=== PATIENT | male | born 1975 | race Caucasian/White ===

== ENCOUNTER 2018-01-28 08:48 | Emergency (ER) | payer OTHER ==
[2018-01-28] MEDS ORDERED: CLINDAMYCIN HCL 150 MG CAP ONE (09:35)
[2018-01-28] MEDS ORDERED: IBUPROFEN 200 MG TAB PO ONE (09:36)
[2018-01-28] MEDS ORDERED: IBUPROFEN 400 MG TAB ONE (09:36)
[2018-01-28] MEDS ORDERED: CLINDAMYCIN IV 150 MG/ML (4 mL) VIAL ONE (09:37)
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
== END 2018-01-28 10:16 | disposition home or self-care (01) ==
LOC: ER 08:48
DX: K02.9 Dental caries, unspecified (principal); J44.9 Chronic obstructive pulmonary disease, unspecified; I10 Essential (primary) hypertension; F17.210 Nicotine dependence, cigarettes, uncomplicated
CPT/HCPCS: 96372; 99283; S0077

== ENCOUNTER 2018-08-07 20:39 | Emergency (ER) | payer OTHER ==
--- OUTSIDE RECORDS SUMMARY | 2018-08-07 20:41 | XMS REPORT ---
:1975 [facility] Address [address] [place] [address] Dr. Berry [address] [place] [id number] Care Team Providers Name Role Phone Unavailable Unavailable Unavailable Problems This patient has no known problems. Allergies, Adverse Reactions, Alerts This patient has no known allergies or adverse reactions. Medications This patient has no known medications.
[2018-08-07 21:28] LABS: Hematocrit 44.7 % (39.6-49.0); MCH 34.3 pg (27.0-35.0); MCV 97.7 fL (80-100); RBC Red Blood Cell Count 4.57 M/uL (4.33-5.43)
[2018-08-07 21:29] LABS: Absolute Lymphocytes (CBC) 2.1 K/uL (0.7-4.9); Absolute Neutrophil 3.3 K/uL (1.8-8.0); Basophils % 0.4 % (0-1.3); Eosinophils % 4.2 % (0-4.4); MPV 8.2 fL (7.6-11.3)
[2018-08-07] MEDS ORDERED: KETOROLAC 30 MG/ML INJ ONE (21:48)
[2018-08-07] MEDS ORDERED: NA CHLORIDE 0.9% 1,000 ML ONE (21:49)
[2018-08-07 22:10] LABS: Blood Morphology Comment NOT SEEN (NOT SEEN); Platelet Estimate ADEQ
--- NOTE | 2018-08-07 22:10 | RAD REPORT ---
EXAM DESCRIPTION: US - Scrotum Testicles - 08/07/2018 10:02 pm CLINICAL HISTORY: testicular pain COMPARISON: No comparisons FINDINGS: The right testicle 4.2 x 3.1 x 1.6 cm. No intratesticular masses or evidence of testicular torsion. The left testicle 4.3 x 2.9 x 1.6 cm. No intratesticular masses or evidence of testicular torsion. Both epididymides are normal in size and appearance. No pathologic fluid collections. IMPRESSION: Unremarkable study.
[2018-08-07] MEDS ORDERED: MORPHINE 4 MG/ML SYR ONE (22:33)
[2018-08-07] MEDS ORDERED: ONDANSETRON 4 MG/2 ML VIAL ONE (22:33)
[2018-08-07] MEDS ORDERED: DIPHENHYDRAMINE 50 MG/ML VIAL ONE (22:56)
[2018-08-07 23:12] LABS: ALT/SGPT 98 U/L (12-78); AST/SGOT 103 U/L (15-37); Albumin 3.7 g/dL (3.4-5.0); Alkaline Phosphatase 100 U/L (45-117); BUN Blood Urea Nitrogen 7 mg/dL (7-18); Bicarbonate 25 mmol/L (21-32); Bilirubin Direct 0.2 mg/dL (0-0.2); Bilirubin Total 0.7 mg/dL (0.2-1.0); Glucose Level 102 mg/dL (74-106); Lipase 247 U/L (73-393); Potassium 3.9 mmol/L (3.5-5.1); Protein, Total 7.9 g/dL (6.4-8.2); Sodium Level 138 mmol/L (136-145)
--- NOTE | 2018-08-07 23:37 | EDPHYS ---
Physician Documentation [facility] Name: Sung Brown Jr Age: 43 yrs Sex: Male : 1975 Arrival Date: 08/07/2018 Time: 20:41 Bed 19 Private MD: ED Physician Julio Chow HPI: 08/07 23:54 This 43 yrs old Male presents to ER via Ambulatory with complaints of tw4 Testicular Pain, Abdominal Pain. 23:54 The patient presents with scrotal pain, of the right side. Onset: The symptoms/episode tw4 began/occurred yesterday. Modifying factors: The symptoms are alleviated by nothing, the symptoms are aggravated by nothing. Associated signs and symptoms: Pertinent positives: back pain. Severity of symptoms: At their worst the symptoms were moderate, in the emergency department the symptoms are unchanged. The patient has not experienced similar symptoms in the past. Historical: - Allergies: 20:56 NKDA; aj1 - Home Meds: 20:56 Albuterol Inhl [Active]; gabapentin Oral [Active]; Harvoni 90-400 mg Oral tab 1 tab aj1 once daily [Active]; Hydrocodone-Acetaminophen Oral [Active]; lisinopril 40 mg Oral tab 1 tab once daily [Active]; Nexium 40 mg Oral cpDR 1 cap once daily [Active]; Nexium Oral [Active]; Symbicort inhalation [Active]; Tramadol Oral [Active]; - PMHx: 20:56 COPD; Hepatitis; Hypertension; WPW; aj1 - Immunization history:: Flu vaccine is up to date. - Social history:: Smoking status: Patient uses tobacco products, smokes one pack cigarettes per day. - Ebola Screening: : Patient denies travel to an Ebola-affected area in the 21 days before illness onset. ROS: 23:54 Constitutional: Negative for fever, chills, and weight loss, Eyes: Negative for injury, tw4 pain, redness, and discharge, Cardiovascular: Negative for chest pain, palpitations, and edema, Respiratory: Negative for shortness of breath, cough, wheezing, and pleuritic chest pain, Abdomen/GI: Negative for abdominal pain, nausea, vomiting, diarrhea, and constipation. 23:54 Neuro: Negative for headache, weakness, numbness, tingling, and seizure, Psych: Negative for depression, anxiety, suicide ideation, homicidal ideation, and hallucinations. 23:54 Back: Positive for flank pain. 23:54 : Positive for testicular pain Exam: 23:54 Constitutional: This is a well developed, well nourished patient who is awake, alert, tw4 and in no acute distress. Head/Face: Normocephalic, atraumatic. Chest/axilla: Normal chest wall appearance and motion. Nontender with no deformity. No lesions are appreciated. Cardiovascular: Regular rate and rhythm with a normal S1 and S2. No gallops, murmurs, or rubs. Normal PMI, no JVD. No pulse deficits. Respiratory: Lungs have equal breath sounds bilaterally, clear to auscultation and percussion. No rales, rhonchi or wheezes noted. No increased work of breathing, no retractions or nasal flaring. Abdomen/GI: Soft, non-tender, with normal bowel sounds. No distension or tympany. No guarding or rebound. No evidence of tenderness throughout. Back: No spinal tenderness. No costovertebral tenderness. Full range of motion. Male : Normal genitalia with no discharge or lesions. MS/ Extremity: Pulses equal, no cyanosis. Neurovascular intact. Full, normal range of motion. Neuro: Awake and alert, GCS 15, oriented to person, place, time, and situation. Cranial nerves II-XII grossly intact. Motor strength 5/5 in all extremities. Sensory grossly intact. Cerebellar exam normal. Normal gait. Vital Signs: 20:56 BP 138 / 97; Pulse 80; Resp 18; Temp 98.7; Pulse Ox 96% on R/A; Weight 122.47 kg (R); aj1 Height 5 ft. 10 in. (177.80 cm) (R); Pain 10/10; 21:45 BP 133 / 89; Pulse 82; Resp 18 S; Pulse Ox 96% on R/A; cc3 22:30 BP 135 / 83; Pulse 86; Resp 17 S; Pulse Ox 96% on R/A; cc3 23:50 BP 131 / 79; Pulse 86; Resp 18 S; Pulse Ox 96% on R/A; cc3 20:56 Body Mass Index 38.74 (122.47 kg, 177.80 cm) aj1 MDM: 21:21 Patient medically screened. tw4 23:54 Differential diagnosis: UTI, urinary retention, urethritis, nephrolithiasis. Data tw4 reviewed: vital signs, nurses notes. Data interpreted: Pulse oximetry: Interpretation: normal. Counseling: I had a detailed discussion with the patient and/or guardian regarding: the historical points, exam findings, and any diagnostic results supporting the discharge/admit diagnosis. Medication response: morphine relieved the patient's pain. Symptoms have resolved, Toradol partially relieved the patient's pain. Response to treatment: the patient's symptoms have resolved after treatment, and as a result, I will discharge patient. Special discussion: Based on the patient's Hx, exam, and Dx evaluation, there is no indication for emergent surgery or inpatient Tx. It is understood by the patient/guardian that if the Sx's persist or worsen they need to return immediately for re-evaluation. I discussed with the patient/guardian in detail that at this point there is no indication for admission to the hospital. It is understood, however, that if the symptoms persist or worsen the patient needs to return immediately for re-evaluation. ED course: ultrasound of scrotum negative for acute changes. CT scan renal stone protocol negative as well. 08/07 20:57 Order name: Basic Metabolic Panel; Complete Time: 23:35 tw4 08/07 23:35 Interpretation: Within normal limits. tw4 08/07 20:57 Order name: CBC with Diff; Complete Time: 23:30 tw4 08/07 23:30 Interpretation: Normal except: MN% 15.0; PLT 124. tw4 08/07 20:57 Order name: Creatinine for Radiology; Complete Time: 23:35 tw4 08/07 23:35 Interpretation: Within normal limits: CRE 0.80; GFR > 90. tw4 08/07 20:57 Order name: Hepatic Function; Complete Time: 23:31 tw4 08/07 23:34 Interpretation: Normal except: AST 103; ALT 98; GLOB 4.2; A/G 0.9. tw4 08/07 20:57 Order name: Lipase; Complete Time: 23:35 tw4 08/07 23:35 Interpretation: Within normal limits: LIP 247. tw4 08/07 21:31 Order name: Manual Differential EDMS 08/07 21:28 Order name: Scrotum Testicles US; Complete Time: 23:35 tw4 08/07 21:38 Order name: CT Stone Protocol tw4 08/07 23:57 Order name: Urine Dipstick--Ancillary (enter results) 08/07 20:57 Order name: IV Saline Lock; Complete Time: 21:24 tw4 08/07 20:57 Order name: Labs collected and sent; Complete Time: 21:24 tw4 Administered Medications: 21:40 Drug: TORadol 30 mg Route: IVP; Site: right forearm; cc3 22:00 Follow up: Response: No adverse reaction; Pain is unchanged, physician notified cc3 21:45 Drug: NS 0.9% 1000 ml Route: IV; Rate: 1 bolus; Site: right forearm; cc3 23:00 Follow up: Response: No adverse reaction; IV Status: Completed infusion; IV Intake: cc3 1000ml 22:25 Drug: Zofran 4 mg Route: IVP; Site: right forearm; cc3 22:50 Follow up: Response: Nausea is decreased cc3 22:30 Drug: morphine 4 mg Route: IVP; Site: right forearm; cc3 22:50 Follow up: Response: Pain is decreased cc3 22:50 Drug: Benadryl 25 mg Route: IVP; Site: right forearm; cc3 23:30 Follow up: Response: No adverse reaction cc3 Disposition: 08/07/18 23:36 Discharged to Home. Impression: Low back pain. - Condition is Stable. - Discharge Instructions: Back Pain, Adult, Pain Without a Known Cause. - Prescriptions for Ibuprofen 800 mg Oral Tablet - take 1 tablet by ORAL route every 8 hours As needed take with food; 30 tablet. Cyclobenzaprine 10 mg Oral Tablet - take 1 tablet by ORAL route every 8 hours As needed; 30 tablet. Tramadol 50 mg Oral Tablet - take 1 tablet by ORAL route every 8 hours as needed; 12 tablet. - Medication Reconciliation Form, Thank You Letter, Antibiotic Education, Prescription Opioid Use form. - Follow up: Private Physician; When: Upon discharge from the Emergency Department; Reason: If symptoms return, Recheck today's complaints, Continuance of care. - Problem is new. - Symptoms have improved. Signatures: Dispatcher [employer] EDLindsey Barajas RN RN aj1 Julio Chow MD MD tw4 Ruth Ann Hinojosa cc3 Corrections: (The following items were deleted from the chart) 12/13 00:00 08/07 23:36 08/07/2018 23:36 Discharged to Home. Impression: Low back pain. Condition cc3 is Stable. Forms are Medication Reconciliation Form, Thank You Letter, Antibiotic Education, Prescription Opioid Use. Follow up: Private Physician; When: Upon discharge from the Emergency Department; Reason: If symptoms return, Recheck today's complaints, Continuance of care. Problem is new. Symptoms have improved. tw4
--- NOTE | 2018-08-07 23:37 | ER ---
Nurse's Notes [facility] Name: Sung Brown Jr Age: 43 yrs Sex: Male : 1975 Arrival Date: 08/07/2018 Time: 20:41 Bed 19 Private MD: Diagnosis: Low back pain Presentation: 08/07 20:53 Presenting complaint: Patient states: "I have a lot of pain in my lower back, my right aj1 side, my right hip and my testicles, and I have a big knot in my belly button" Reports that he has had this pain for the past 2 days, after helping someone move some large appliances. He felt a pop at that time and has pain ever since. Denies urinary symptoms. Denies N/V/D. Transition of care: patient was not received from another setting of care. Onset of symptoms was August 05, 2018. Risk Assessment: Do you want to hurt yourself or someone else? Patient reports no desire to harm self or others. Initial Sepsis Screen: Does the patient meet any 2 criteria? No. Patient's initial sepsis screen is negative. Does the patient have a suspected source of infection? No. Patient's initial sepsis screen is negative. Care prior to arrival: None. 20:53 Method Of Arrival: Ambulatory aj1 20:53 Acuity: CINTIA 3 aj1 Triage Assessment: 20:56 General: Appears in no apparent distress. uncomfortable, Behavior is calm, cooperative, aj1 appropriate for age. Pain: Complains of pain in back, abdomen and pelvis Pain currently is 10 out of 10 on a pain scale. Neuro: Level of Consciousness is awake, alert, obeys commands. Cardiovascular: Patient's skin is warm and dry. Respiratory: Airway is patent Respiratory effort is even, unlabored, Respiratory pattern is regular, symmetrical. GI: Patient currently denies diarrhea, nausea, vomiting. : Denies burning with urination, urinary frequency. Historical: - Allergies: 20:56 NKDA; aj1 - Home Meds: 20:56 Albuterol Inhl [Active]; gabapentin Oral [Active]; Harvoni 90-400 mg Oral tab 1 tab aj1 once daily [Active]; Hydrocodone-Acetaminophen Oral [Active]; lisinopril 40 mg Oral tab 1 tab once daily [Active]; Nexium 40 mg Oral cpDR 1 cap once daily [Active]; Nexium Oral [Active]; Symbicort inhalation [Active]; Tramadol Oral [Active]; - PMHx: 20:56 COPD; Hepatitis; Hypertension; WPW; aj1 - Immunization history:: Flu vaccine is up to date. - Social history:: Smoking status: Patient uses tobacco products, smokes one pack cigarettes per day. - Ebola Screening: : Patient denies travel to an Ebola-affected area in the 21 days before illness onset. Screenin:00 Abuse screen: Denies threats or abuse. Denies injuries from another. Nutritional cc3 screening: No deficits noted. Tuberculosis screening: No symptoms or risk factors identified. Fall Risk Ambulatory Aid- None/Bed Rest/Nurse Assist (0 pts). Gait- Normal/Bed Rest/Wheelchair (0 pts) Mental Status- Oriented to own ability (0 pts). Assessment: 21:00 GI: Bowel sounds present X 4 quads. Abd is soft and non tender X 4 quads. cc3 22:20 Reassessment: Patient appears in no apparent distress at this time. Patient and/or cc3 family updated on plan of care and expected duration. Pain level reassessed. Patient is alert, oriented x 3, equal unlabored respirations, skin warm/dry/pink. 22:50 Reassessment: patient developed localized mild redness and itchiness at the IV cannula cc3 site after receipt of Morphine intravenous medication, Dr. Chow informed and new order was made and carried out. 23:15 Reassessment: Patient appears in no apparent distress at this time. Patient and/or cc3 family updated on plan of care and expected duration. Pain level reassessed. Patient is alert, oriented x 3, equal unlabored respirations, skin warm/dry/pink. 08/08 00:00 Reassessment: Patient appears in no apparent distress at this time. Patient and/or cc3 family updated on plan of care and expected duration. Pain level reassessed. Patient is alert, oriented x 3, equal unlabored respirations, skin warm/dry/pink. Dr. Chow discharged the patient home with prescription given. IV cannula removed and patient left ER vitally stable and ambulatory with his . Vital Signs: 08/07 20:56 BP 138 / 97; Pulse 80; Resp 18; Temp 98.7; Pulse Ox 96% on R/A; Weight 122.47 kg (R); aj1 Height 5 ft. 10 in. (177.80 cm) (R); Pain 10/10; 21:45 BP 133 / 89; Pulse 82; Resp 18 S; Pulse Ox 96% on R/A; cc3 22:30 BP 135 / 83; Pulse 86; Resp 17 S; Pulse Ox 96% on R/A; cc3 23:50 BP 131 / 79; Pulse 86; Resp 18 S; Pulse Ox 96% on R/A; cc3 20:56 Body Mass Index 38.74 (122.47 kg, 177.80 cm) aj1 ED Course: 20:41 Patient arrived in ED. ds1 20:55 Triage completed. aj1 20:56 Arm band placed on Patient placed in an exam room. aj1 20:57 Julio Chow MD is Attending Physician. tw4 20:59 Ruth Ann Hinojosa is Primary Nurse. cc3 21:00 Patient has correct armband on for positive identification. Bed in low position. Call cc3 light in reach. Side rails up X 1. Pulse ox on. NIBP on. 21:15 Inserted saline lock: 20 gauge in right forearm, using aseptic technique. Blood cc3 collected. 21:[address] nj 22:02 Scrotum Testicles US In Process Unspecified. EDMS 22:04 Ultrasound completed. Patient tolerated well. Patient moved to CT via wheelchair. cy 22:11 CT Stone Protocol In Process Unspecified. EDMS 12/13 00:00 No provider procedures requiring assistance completed. IV discontinued, intact, cc3 bleeding controlled, No redness/swelling at site. Pressure dressing applied. Administered Medications: 08/07 21:40 Drug: TORadol 30 mg Route: IVP; Site: right forearm; cc3 22:00 Follow up: Response: No adverse reaction; Pain is unchanged, physician notified cc3 21:45 Drug: NS 0.9% 1000 ml Route: IV; Rate: 1 bolus; Site: right forearm; cc3 23:00 Follow up: Response: No adverse reaction; IV Status: Completed infusion; IV Intake: cc3 1000ml 22:25 Drug: Zofran 4 mg Route: IVP; Site: right forearm; cc3 22:50 Follow up: Response: Nausea is decreased cc3 22:30 Drug: morphine 4 mg Route: IVP; Site: right forearm; cc3 22:50 Follow up: Response: Pain is decreased cc3 22:50 Drug: Benadryl 25 mg Route: IVP; Site: right forearm; cc3 23:30 Follow up: Response: No adverse reaction cc3 Intake: 23:00 IV: 1000ml; Total: 1000ml. cc3 Outcome: 23:36 Discharge ordered by . tw4 08/08 00:00 Patient left the ED. cc3 00:00 Discharged to home ambulatory, with family. cc3 00:00 Condition: stable 00:00 Discharge instructions given to patient, family, Instructed on discharge instructions, follow up and referral plans. medication usage, Demonstrated understanding of instructions, follow-up care, medications, Prescriptions given X 3. Signatures: Dispatcher [employer] Lindsey Mejai RN RN aj1 Zaynab Zavala ds1 Onur Hernandez Chheannith cy Wadley, Terrence, MD MD tw4 Ruth Ann Hinojosa cc3
[2018-08-08 02:35] LABS: Urine Blood NEGATIVE (NEG); Urine Glucose NEGATIVE (NEG); Urine Protein 2+ (NEG)
--- NOTE | 2018-08-08 08:05 | RAD REPORT ---
EXAM DESCRIPTION: CT - Stone Protocol - 08/08/2018 2:34 am CLINICAL HISTORY: Flank pain. ABD PAIN COMPARISON: Abdomen Pelvis W Contrast dated 10/09/2016 TECHNIQUE: Axial images were obtained without oral or IV contrast. Lack of contrast limits solid org an and vascular assessment. The [id number] spans the entirety of the system partially obscuring uppermost abdomen and lung bases. Coronal reformatted images were obtained and reviewed. All CT scans are performed using dose optimization technique as appropriate and may include automated exposure control or mA/KV adjustment according to patient size. FINDINGS: The lower lung perez are clear. Liver size is prominent with subtle nodular contour in diffuse fatty infiltration. Poorly defined 10 mm lesion is seen in the inferior right lobe liver, grossly unchanged on non-contrast study. Spleen i s mildly enlarged. The pancreas and adrenal glands are normal. No pathologic lymphadenopathy in the a bdomen or pelvis. Subtle caliceal stones are suspected bilaterally. No hydronephrosis. No bowel obstruction, free air, free fluid or abscess. Normal appendix noted.Small fat containing umb ilical hernia. No significant bony abnormality. Absence or atrophy of the left rectus abdominus muscle noted. IMPRESSION: Very subtle punctate caliceal renal calculi bilaterally suspected. No hydronephrosis. Evidence of hepatosplenomegaly with subtle nodular contour to the liver parenchyma likely indicating early findings of cirrhosis.
== END 2018-08-08 | disposition home or self-care (01) ==
LOC: ER 20:39
DX: M54.5 Low back pain (principal); F17.210 Nicotine dependence, cigarettes, uncomplicated; I10 Essential (primary) hypertension; J44.9 Chronic obstructive pulmonary disease, unspecified; I45.6 Pre-excitation syndrome
CPT/HCPCS: 36415; 74176; 76377; 76870; 80048; 80076; 81003; 83690; 85025; 96361; 96374; 96375; 99284; J2405; J7030

== ENCOUNTER 2018-12-06 11:01 | Emergency (ER) | payer OTHER ==
--- OUTSIDE RECORDS SUMMARY | 2018-12-06 11:03 | XMS REPORT ---
:1975 Author Organization [employer] Care Team Providers Name Role Phone Cookie Pope Provider Role Unavailable Allergies, Adverse Reactions, Alerts Substance Reaction Event Type Lisinopril severe fatigue Drug Allergy Problems Problem Type Condition Code Onset Dates Condition Status Problem IBS (irritable bowel syndrome) K58.9 Active Problem GERD (gastroesophageal reflux K21.9 Active disease) Problem Back pain M54.9 Active Problem Pulmonary emphysema, unspecified J43.9 Active emphysema type Problem Alcoholic fatty liver K70.0 Active Problem Chronic hepatitis C without hepatic B18.2 Active coma Problem COPD (chronic obstructive pulmonary J44.9 Active disease) Problem Knee pain M25.569 Active Problem Nicotine dependence F17.200 Active Problem Hypertension I10 Active Assessment Nicotine dependence F17.200 Active Assessment Chronic pain syndrome G89.4 Active Assessment Pulmonary emphysema, unspecified J43.9 Active emphysema type Assessment Hypertension I10 Active Problem Radiculopathy M54.10 Active Problem Ankle pain M25.579 Active Assessment COPD (chronic obstructive pulmonary J44.9 Active disease) Problem Chronic pain syndrome G89.4 Active Problem Wheezing R06.2 Active Medications Medication Code Code Instructions Start End Status Dosage System Date Date Nicotine NDC 0 Active not defined Proctofoam HC ND 06074994894 1-1 % Rectal Active 1 application Four times a as needed day Dibucaine ND 86176579206 1 % Active 1 UYEN APPLIED TOPICALLY 3 TIMES A DAY Results No Known Results Summary Purpose eClinicalWorks Submission
--- OUTSIDE RECORDS SUMMARY | 2018-12-06 11:03 | XMS REPORT ---
:1975 Author Organization [facility] Address [address] [place] [address] Dr. Berry [address] [place] [id number] Care Team Providers Name Role Phone Unavailable Unavailable Unavailable Problems This patient has no known problems. Allergies, Adverse Reactions, Alerts This patient has no known allergies or adverse reactions. Medications This patient has no known medications.
[2018-12-06] MEDS ORDERED: HYDROCODONE/APAP 10/325 TAB ONE (11:48)
--- NOTE | 2018-12-06 12:24 | EDPHYS ---
Physician Documentation [facility] Name: Sung Brown Jr Age: 43 yrs Sex: Male : 1975 Arrival Date: 12/06/2018 Time: 11:01 Bed Treatment Private MD: ED Physician Dom Durant HPI: 12/06 12:15 This 43 yrs old Male presents to ER via Ambulatory with complaints of Right pm1 Hand Injury. 12:15 The patient or guardian reports pain, swelling. The complaints affect the medial aspect pm1 of right hand. Context: The problem was sustained at home, resulted from Punched his granite counter top yesterday. Onset: The symptoms/episode began/occurred yesterday. Modifying factors: The symptoms are alleviated by nothing, the symptoms are aggravated by movement. Associated signs and symptoms: Pertinent negatives: cyanosis distally, decreased sensation distally, numbness distally, tingling distally. Severity of symptoms: in the emergency department the symptoms are actually worse. The patient has not experienced similar symptoms in the past. The patient has not recently seen a physician. Historical: - Allergies: 11:12 NKDA; iw - Home Meds: 11:12 losartan 25 mg oral tab 1 tab 2 times per day [Active]; carvedilol oral oral daily iw [Active]; - PMHx: 11:12 COPD; Hepatitis; Hypertension; WPW; ADD/ADHD; iw - PSHx: 11:12 leg; arm; iw - Immunization history:: Adult Immunizations up to date. - Social history:: Smoking status: Patient uses tobacco products, smokes one pack cigarettes per day. - Ebola Screening: : Patient negative for fever greater than or equal to 101.5 degrees Fahrenheit, and additional compatible Ebola Virus Disease symptoms Patient denies exposure to infectious person Patient denies travel to an Ebola-affected area in the 21 days before illness onset No symptoms or risks identified at this time. ROS: 12:15 Constitutional: Negative for fever, chills, and weight loss, Eyes: Negative for injury, pm1 pain, redness, and discharge, ENT: Negative for injury, pain, and discharge, Neck: Negative for injury, pain, and swelling, Cardiovascular: Negative for chest pain, palpitations, and edema, Respiratory: Negative for shortness of breath, cough, wheezing, and pleuritic chest pain, Abdomen/GI: Negative for abdominal pain, nausea, vomiting, diarrhea, and constipation, Back: Negative for injury and pain. 12:15 Skin: Negative for injury, rash, and discoloration, Neuro: Negative for headache, weakness, numbness, tingling, and seizure. 12:15 MS/extremity: Positive for pain, of the medial aspect of right hand over fifth metacarpal, Negative for decreased range of motion. Exam: 12:15 Constitutional: This is a well developed, well nourished patient who is awake, alert, pm1 and in no acute distress. Head/Face: Normocephalic, atraumatic. Eyes: Pupils equal round and reactive to light, extra-ocular motions intact. Lids and lashes normal. Conjunctiva and sclera are non-icteric and not injected. Cornea within normal limits. Periorbital areas with no swelling, redness, or edema. ENT: Nares patent. No nasal discharge, no septal abnormalities noted. Tympanic membranes are normal and external auditory canals are clear. Oropharynx with no redness, swelling, or masses, exudates, or evidence of obstruction, uvula midline. Mucous membranes moist. Neck: Trachea midline, no thyromegaly or masses palpated, and no cervical lymphadenopathy. Supple, full range of motion without nuchal rigidity, or vertebral point tenderness. No Meningismus. Chest/axilla: Normal chest wall appearance and motion. Nontender with no deformity. No lesions are appreciated. Cardiovascular: Regular rate and rhythm with a normal S1 and S2. No gallops, murmurs, or rubs. Normal PMI, no JVD. No pulse deficits. Respiratory: Lungs have equal breath sounds bilaterally, clear to auscultation and percussion. No rales, rhonchi or wheezes noted. No increased work of breathing, no retractions or nasal flaring. Abdomen/GI: Soft, non-tender, with normal bowel sounds. No distension or tympany. No guarding or rebound. No evidence of tenderness throughout. Back: No spinal tenderness. No costovertebral tenderness. Full range of motion. Skin: Warm, dry with normal turgor. Normal color with no rashes, no lesions, and no evidence of cellulitis. 12:15 Musculoskeletal/extremity: Extremities: grossly normal except: noted in the medial aspect of right hand over distal aspect of fifth metacarpal: deformity, swelling, intact with brisk capillary refill to right fifth finger. the right thumb, right index finger, right middle finger, right ring finger and right little finger Sensation intact. Vital Signs: 11:10 BP 146 / 87; Pulse 81; Resp 16; Pulse Ox 98% on R/A; Weight 118.84 kg; Height 5 ft. 10 iw in. (177.80 cm); Pain 9/10; 11:10 Body Mass Index 37.59 (118.84 kg, 177.80 cm) iw Procedures: 13:15 Splinting: Splint applied to right hand using Orthoglass splint, applied by tech. pm1 Examined by me, post splint application: neurovascular intact, 2+ distal pulses palpable, brisk capillary refill noted, Patient tolerated well. MDM: 11:12 Patient medically screened. pm1 12:22 Data reviewed: vital signs. Data interpreted: Pulse oximetry: on room air is 98 %. pm1 Interpretation: normal. Counseling: I had a detailed discussion with the patient and/or guardian regarding: the historical points, exam findings, and any diagnostic results supporting the discharge/admit diagnosis, radiology results, the need for outpatient follow up, to return to the emergency department if symptoms worsen or persist or if there are any questions or concerns that arise at home. 04 11:12 Order name: Hand Right 3 View XRAY; Complete Time: 12:31 pm1 12/06 12:22 Order name: Ulnar Gutter splint; Complete Time: 12:52 pm1 12/06 12:24 Order name: Sling; Complete Time: 12:52 pm1 Administered Medications: 11:42 Drug: Lockney 10 mg-325 mg 1 tabs Route: PO; em 13:00 Follow up: Response: No adverse reaction; Pain is decreased em Disposition: 12/06/18 12:24 Discharged to Home. Impression: Unspecified fracture of fifth metacarpal bone, right hand. - Condition is Stable. - Discharge Instructions: Boxer's Fracture, Cast or Splint Care, Adult, How to Use a Sling. - Prescriptions for Tylenol- Codeine #3 300-30 mg Oral Tablet - take 2 tablets by ORAL route every 6 hours As needed; 20 tablet. - Medication Reconciliation Form, Thank You Letter, Antibiotic Education, Prescription Opioid Use form. - Follow up: Emergency Department; When: As needed; Reason: Worsening of condition. Follow up: Private Physician; When: 2 - 3 days; Reason: Recheck today's complaints, Continuance of care, Re-evaluation by your physician. - Problem is new. - Symptoms have improved. Addendum: 12/09/2018 08:24 Co-signature as Attending Physician, Dom Durant MD I agree with the assessment and k dr plan of care. Signatures: Dispatcher [employer] EDLA Dom Durant MD MD [facility] Pk Dolan, DENIAL RESOLUTION SPECIALIST DENIAL RESOLUTION SPECIALIST em Lesli Sears, VIMAL RN iw Art Gates NP INTERN PRODUCT MARKETING MANAGER pm1 Jason, Libby [facility] Corrections: (The following items were deleted from the chart) 12/06 13:13 12:24 12/06/2018 12:24 Discharged to Home. Impression: Unspecified fracture of fifth mh5 metacarpal bone, right hand. Condition is Stable. Forms are Medication Reconciliation Form, Thank You Letter, Antibiotic Education, Prescription Opioid Use. Follow up: Emergency Department; When: As needed; Reason: Worsening of condition. Follow up: Private Physician; When: 2 - 3 days; Reason: Recheck today's complaints, Continuance of care, Re-evaluation by your physician. Problem is new. Symptoms have improved. pm1
--- NOTE | 2018-12-06 12:24 | ER ---
Nurse's Notes [facility] Name: Sung Brown Jr Age: 43 yrs Sex: Male : 1975 Arrival Date: 12/06/2018 Time: 11:01 Bed Treatment Private MD: Diagnosis: Unspecified fracture of fifth metacarpal bone, right hand Presentation: 12/06 11:09 Presenting complaint: Patient states: punched a granite table last night, swelling and iw bruising to right hand. Transition of care: patient was not received from another setting of care. Onset of symptoms was December 05, 2018. Risk Assessment: Do you want to hurt yourself or someone else? Patient reports no desire to harm self or others. Initial Sepsis Screen: Does the patient meet any 2 criteria? No. Patient's initial sepsis screen is negative. Does the patient have a suspected source of infection? No. Patient's initial sepsis screen is negative. Care prior to arrival: None. 11:09 Method Of Arrival: Ambulatory iw 11:09 Acuity: CINTIA 4 iw Historical: - Allergies: 11:12 NKDA; iw - Home Meds: 11:12 losartan 25 mg oral tab 1 tab 2 times per day [Active]; carvedilol oral oral daily iw [Active]; - PMHx: 11:12 COPD; Hepatitis; Hypertension; WPW; ADD/ADHD; iw - PSHx: 11:12 leg; arm; iw - Immunization history:: Adult Immunizations up to date. - Social history:: Smoking status: Patient uses tobacco products, smokes one pack cigarettes per day. - Ebola Screening: : Patient negative for fever greater than or equal to 101.5 degrees Fahrenheit, and additional compatible Ebola Virus Disease symptoms Patient denies exposure to infectious person Patient denies travel to an Ebola-affected area in the 21 days before illness onset No symptoms or risks identified at this time. Screenin:30 Abuse screen: Denies threats or abuse. Nutritional screening: No deficits noted. em Tuberculosis screening: No symptoms or risk factors identified. Fall Risk None identified. Assessment: 11:30 General: Appears in no apparent distress. comfortable, Behavior is calm, cooperative. em Pain: Complains of pain in right hand Pain currently is 9 out of 10 on a pain scale. Neuro: Level of Consciousness is awake, alert, obeys commands, Oriented to person, place, time, situation. Cardiovascular: Capillary refill < 3 seconds Patient's skin is warm and dry. Respiratory: Airway is patent Respiratory effort is even, unlabored, Respiratory pattern is regular, symmetrical. Derm: Skin is intact, is healthy with good turgor, Skin is pink, warm \T\ dry. Musculoskeletal: Circulation, motion, and sensation intact. Capillary refill < 3 seconds, Range of motion: limited in right little finger and right ring finger and right middle finger and right index finger and right thumb Swelling present in right hand. 11:50 Reassessment: Patient appears in no apparent distress at this time. Patient and/or iw family updated on plan of care and expected duration. Pain level reassessed. Patient is alert, oriented x 3, equal unlabored respirations, skin warm/dry/pink. I agree with above assessment by Pk Dolan LVN. Vital Signs: 11:10 BP 146 / 87; Pulse 81; Resp 16; Pulse Ox 98% on R/A; Weight 118.84 kg; Height 5 ft. 10 iw in. (177.80 cm); Pain 9/10; 11:10 Body Mass Index 37.59 (118.84 kg, 177.80 cm) iw ED Course: 11:01 Patient arrived in ED. rg4 11:06 Art Gates NP is PHCP. pm1 11:06 Dom Durant MD is Attending Physician. pm1 11:10 Triage completed. iw 11:10 Arm band placed on. iw 11:17 Pk Dolan LVN is Primary Nurse. em 11:30 Patient has correct armband on for positive identification. Bed in low position. Call em light in reach. Adult w/ patient. 12:04 X-ray completed. Portable x-ray completed in exam room. jr1 12:06 Hand Right 3 View XRAY In Process Unspecified. EDMS 12:52 Orthoglass splint: Ulnar gutter/Boxer splint applied on right forearm. Sling applied to mh5 right arm. Administered Medications: 11:42 Drug: Cisne 10 mg-325 mg 1 tabs Route: PO; em 13:00 Follow up: Response: No adverse reaction; Pain is decreased em Outcome: 12:24 Discharge ordered by . pm1 13:13 Patient left the ED. mh5 Signatures: Dispatcher [employer] EDKalpana Recinos jr1 Pk Dolan, GI TECHNICIAN GI TECHNICIAN Lesli Tran, RN RN Art Don, CARBIDE TOOL MAKER CARBIDE TOOL MAKER pm1 Nelly Hogan4 Libby Gomez [facility]
--- NOTE | 2018-12-06 12:29 | RAD REPORT ---
EXAM DESCRIPTION: RAD - Hand Right 3 View - 12/06/2018 12:05 pm CLINICAL HISTORY: Hand pain, blunt force trauma COMPARISON: None. FINDINGS: Distal fifth metacarpal fracture is present. There is ventral angulation of approximately 20 degrees. No other acute fracture changes seen. Hardware is in place base of the second metacarpal from prior r epair. No carpal bone injury confirmed. Scaphoid assessment is limited. There is no dislocation or pe riosteal reaction noted. No foreign body or other soft tissue abnormality. IMPRESSION: Distal right fifth metacarpal fracture with ventral angulation deformity.
== END 2018-12-06 13:13 | disposition home or self-care (01) ==
LOC: ER 11:01
PROC: 2W3CX1Z Immobilization of Right Lower Arm using Splint (ICD-10-PCS; principal; 2018-12-06)
DX: S62.306A Unspecified fracture of fifth metacarpal bone, right hand, initial encounter for closed fracture (principal); W22.8XXA Striking against or struck by other objects, initial encounter; Y93.89 Activity, other specified; Y92.000 Kitchen of unspecified non-institutional (private) residence as the place of occurrence of the external cause; I10 Essential (primary) hypertension; I45.6 Pre-excitation syndrome; J44.9 Chronic obstructive pulmonary disease, unspecified
CPT/HCPCS: 99283

== ENCOUNTER 2018-12-10 08:30 | Day surgery (SDC) | payer OTHER ==
[2018-12-10 08:19] LABS: Absolute Lymphocytes (CBC) 2.1 K/uL (0.7-4.9); Absolute Neutrophil 3.4 K/uL (1.8-8.0); Basophils % 0.8 % (0-1.3); Hematocrit 44.7 % (39.6-49.0); Lymphocytes % 30.8 % (15.3-44.8); MPV 8.3 fL (7.6-11.3); Monocytes % 14.8 % (3.3-12.3); RBC Red Blood Cell Count 4.54 M/uL (4.33-5.43)
--- OUTSIDE RECORDS SUMMARY | 2018-12-10 08:34 | XMS REPORT ---
:1975 Author [facility] Address [address] [place] [address] Dr. Berry [address] [place] [id number] Care Team Providers Name Role Phone Unavailable Unavailable Unavailable Problems This patient has no known problems. Allergies, Adverse Reactions, Alerts This patient has no known allergies or adverse reactions. Medications This patient has no known medications.
--- OUTSIDE RECORDS SUMMARY | 2018-12-10 08:34 | XMS REPORT ---
[...] 0 Active not defined Proctofoam HC ND [id number] 1-1 % Rectal Active 1 application Four times a as needed day Dibucaine ND [id number] 1 % Active 1 UYEN APPLIED TOPICALLY 3 TIMES A DAY Results No Known Results Summary Purpose eClinicalWorks Submission
--- NOTE | 2018-12-10 08:40 | EKG ---
Test Date: 2018-12-10 Test Time: 08:14:14 Machine Tool Builder: VIKA MEASUREMENT RESULTS: Intervals: Rate: 77 MT: 134 QRSD: 88 QT: 396 QTc: 448 Hominy: P: 32 MT: 134 QRS: 30 T: 18 INTERPRETIVE STATEMENTS: Normal sinus rhythm Normal ECG Compared to ECG 10/09/2016 10:25:13 No significant changes Electronically Signed On 12-10-18 08:39:11 CDT by iGno De Jesus
[2018-12-10] MEDS ORDERED: LEVALBUTEROL 1.25 MG/3 ML NEB IH ONE (09:00)
[2018-12-10] MEDS ORDERED: Ringers Lactate 1,000 ML IV ONE (09:01)
[2018-12-10] MEDS ORDERED: CEFAZOLIN/SWI 1gm 1 GM/10 ML SYR ONE (09:01)
[2018-12-10 09:12] LABS: BUN Blood Urea Nitrogen 11 mg/dL (7-18); Bicarbonate 26 mmol/L (21-32); Glucose Level 119 mg/dL (74-106); Potassium 4.6 mmol/L (3.5-5.1); Sodium Level 143 mmol/L (136-145)
[2018-12-10] MEDS ORDERED: MIDAZOLAM HCL 2 MG/2 ML INJ ONE (09:19)
[2018-12-10] MEDS ORDERED: PROPOFOL 200 MG/20 ML VIAL IV ONE ×2 (09:19→09:53)
[2018-12-10] MEDS ORDERED: FENTANYL CITR 100 MCG/2 ML ONE ×2 (09:21→09:54)
[2018-12-10] MEDS ORDERED: LIDOCAINE 2% MPF 5 ML VIAL ONE (09:22)
[2018-12-10] MEDS ORDERED: EPHEDRINE SULF 50 MG/10 ML SYR ONE (09:55)
[2018-12-10] MEDS: HYDROMORPHONE HCL 2 MG/ML inj ONE ×3 (10:26→10:35)
--- NOTE | 2018-12-10 10:36 | RAD REPORT ---
EXAM DESCRIPTION: Garrett Dove (2 Views)12/10/2018 8:28 am CLINICAL HISTORY: Preop/hypertension COMPARISON: October 2017 FINDINGS: The lungs appear clear of acute infiltrate. The heart is normal size IMPRESSION: No acute abnormalities displayed
[2018-12-10] MEDS ORDERED: PROMETHAZINE 25 MG/ML VIAL ONE (10:37)
[2018-12-10] MEDS: HYDROMORPHONE HCL 1 MG/ML INJ ONE ×2 (10:42→10:57)
[2018-12-10] MEDS ORDERED: CODEINE 30MG/APAP 300MG TAB ONE (12:03)
--- NOTE | 2018-12-10 12:15 | RAD REPORT ---
EXAM DESCRIPTION: RAD - Hand Right 3 View - 12/10/2018 11:53 am CLINICAL HISTORY: Fifth metacarpal fracture. COMPARISON: None. FINDINGS: Twenty-four fluoroscopic spot images obtained. Surgery performed by Dr. Capone. Fluoros copy time .2 minutes. Two wires affix a fracture of the fifth metacarpal.
--- NOTE | 2018-12-11 08:36 | OP ---
Surgeon: Sung Capone MD Preoperative Diagnosis: Right fifth metacarpal boxer's fracture. Postoperative Diagnosis: Right fifth metacarpal boxer's fracture. Procedures Performed: Closed reduction, percutaneous pinning, and splint. Anesthesia: General. Procedure In Detail: After satisfactory induction of general anesthesia, the C-arm was brought in [facility] and the hand underwent close reduction, it was adequate. The patient's hand was then prepped wit h Betadine scrub, Betadine paint, dry sterile drapes applied in usual manner. The arm was elevated, exsanguinated with an Esmarch. Tourniquet was inflated to 250 mmHg. Hand placed on the [place] tabl e. The 0.045 K-wires were passed from distal to proximal with the MCP flexed at 90 degrees. Reducti on was adequate. Pins were bent and cut. The dressing consisted of Xeroform, Kerlix, and a fibergla ss splint holding the wrist in 10 degrees of dorsiflexion, MCP 90, PIP and DIP. The patient tolerate d the procedure well and returned to Recovery. JADE/KALPESH Voice ID: [id number] Report ID: [id number]
== END 2018-12-10 12:20 | disposition home or self-care (01) ==
LOC: OR 08:30
PROVIDERS: ATTEND Specialist
PROC: 0PHP34Z Insertion of Internal Fixation Device into Right Metacarpal, Percutaneous Approach (ICD-10-PCS; principal; 2018-12-10 09:00)
DX: S62.306A Unspecified fracture of fifth metacarpal bone, right hand, initial encounter for closed fracture (principal); X58.XXXA Exposure to other specified factors, initial encounter; I10 Essential (primary) hypertension; J44.9 Chronic obstructive pulmonary disease, unspecified; Z79.899 Other long term (current) drug therapy
CPT/HCPCS: 26608; 93005; 85025; 80048; 36415; 71046; 73130; 94640; J2704 ×2; J2550; J2250; J1170 ×2; J3010 ×2; J0690

== ENCOUNTER 2018-12-15 22:45 | Emergency (ER) | payer OTHER ==
--- OUTSIDE RECORDS SUMMARY | 2018-12-15 22:50 | XMS REPORT ---
[...] 0 Active not defined Proctofoam HC ND 70558515123 1-1 % Rectal Active 1 application Four times a as needed day Dibucaine ND [id number] 1 % Active 1 UYEN APPLIED TOPICALLY 3 TIMES A DAY Results No Known Results Summary Purpose eClinicalWorks Submission
--- OUTSIDE RECORDS SUMMARY | 2018-12-15 22:50 | XMS REPORT ---
:1975 [facility] Address [address] [place] [address] Dr. Berry [address] [place] [id number] Care Team Providers Name Role Phone Unavailable Unavailable Unavailable Problems This patient has no known problems. Allergies, Adverse Reactions, Alerts This patient has no known allergies or adverse reactions. Medications This patient has no known medications.
[2018-12-16] MEDS ORDERED: CEPHALEXIN 250 MG CAP ONE (00:29)
[2018-12-16] MEDS ORDERED: HYDROCODONE/APAP 10/325 TAB ONE (00:29)
--- NOTE | 2018-12-16 01:30 | ER ---
Nurse's Notes [facility] Name: Sung Brown Jr Age: 43 yrs Sex: Male : 1975 Arrival Date: 12/15/2018 Time: 22:48 Bed 30 Private MD: Diagnosis: Other acute postprocedural pain Presentation: 12/15 23:04 Presenting complaint: Patient states: he had surgery to right hand a week ago for a bb boxer's fracture by Dr Vallejo but then 2 days ago he fell landing on his right hand and thinks the pins were pushed in more and now it is more swollen, red and has drainage. The pain is so bad now he is unable to sleep. Transition of care: patient was not received from another setting of care. Onset of symptoms was December 13, 2018. Risk Assessment: Do you want to hurt yourself or someone else? Patient reports no desire to harm self or others. Initial Sepsis Screen: Does the patient meet any 2 criteria? No. Patient's initial sepsis screen is negative. Does the patient have a suspected source of infection? No. Patient's initial sepsis screen is negative. Care prior to arrival: None. 23:04 Method Of Arrival: Ambulatory bb 23:04 Acuity: CINTIA 3 bb Historical: - Allergies: 23:08 NKDA; bb - Home Meds: 23:08 Albuterol Inhl [Active]; carvedilol Oral daily [Active]; gabapentin Oral [Active]; bb Hydrocodone-Acetaminophen Oral [Active]; losartan 50 mg oral tab 1 tab once daily [Active]; carvedilol 25 mg oral tab 1 tab 2 times per day [Active]; Nexium 40 mg Oral cpDR 1 cap once daily [Active]; Symbicort inhalation [Active]; - PMHx: 23:08 ADD/ADHD; COPD; Hepatitis; Hypertension; WPW; bb - PSHx: 23:08 leg; right hand; bb - Immunization history:: Adult Immunizations up to date. - Social history:: Smoking status: Patient uses tobacco products, smokes one pack cigarettes per day. Patient uses alcohol, occasionally. Patient/guardian denies using street drugs. - Ebola Screening: : No symptoms or risks identified at this time. Screenin/22 00:33 Abuse screen: Denies threats or abuse. Denies injuries from another. Nutritional rv screening: No deficits noted. Tuberculosis screening: No symptoms or risk factors identified. Fall Risk None identified. Assessment: 00:32 General: Appears in no apparent distress. uncomfortable, Behavior is calm, cooperative. rv Pain: Complains of pain in right hand. Neuro: Level of Consciousness is awake, alert, obeys commands, Oriented to person, place, time, situation. Cardiovascular: Capillary refill < 3 seconds. Respiratory: Airway is patent. GI: No signs and/or symptoms were reported involving the gastrointestinal system. : No signs and/or symptoms were reported regarding the genitourinary system. EENT: No signs and/or symptoms were reported regarding the EENT system. Derm: Skin is intact. Musculoskeletal: Swelling present in right hand Reports pain in right hand. 01:22 Reassessment: Patient appears in no apparent distress at this time. No changes from rv previously documented assessment. Patient and/or family updated on plan of care and expected duration. Pain level reassessed. Patient is alert, oriented x 3, equal unlabored respirations, skin warm/dry/pink. PATIENT IS STILL IN PAIN. REFERRED TO DR RODRIGUEZ. Vital Signs: 12/15 23:08 BP 136 / 82; Pulse 73; Resp 18 S; Temp 98.4(O); Pulse Ox 97% on R/A; Weight 121.11 kg bb (R); Height 5 ft. 10 in. (177.80 cm) (R); Pain 10/10; 12/16 01:48 BP 138 / 79 LA Supine; Pulse 76; Resp 17 S; Pulse Ox 98% on R/A; rv 12/15 23:08 Body Mass Index 38.31 (121.11 kg, 177.80 cm) ED Course: 12/15 22:48 Patient arrived in ED. es 23:06 Triage completed. bb 23:08 Arm band placed on Patient placed in an exam room, on a stretcher, on pulse oximetry. bb Family accompanied patient. 23:12 Lloyd Rodriguez MD is Attending Physician. 23:16 Kris Morrison, VIMAL is Primary Nurse. rv 12/16 00:33 Patient has correct armband on for positive identification. Bed in low position. Call rv light in reach. Side rails up X 1. Adult w/ patient. Pulse ox on. NIBP on. 01:22 Orthoglass splint: Ulnar gutter/Boxer splint applied on right forearm. rv 01:46 Hand Right 3 View XRAY Sent. bb 01:48 No provider procedures requiring assistance completed. rv 01:49 Patient did not have IV access during this emergency room visit. rv 02:06 Hand Right 3 View XRAY In Process Unspecified. EDMS Administered Medications: 00:18 CANCELLED (Duplicate Order): KeFLEX 1000 mg PO once gs 00:20 Drug: [place] 10 mg-325 mg 1 tabs Route: PO; rv 01:21 Follow up: Response: Pain is unchanged, physician notified rv 01:21 Drug: [place] 5 mg-325 mg 1 tabs Route: PO; rv 01:47 Follow up: Response: Pain is unchanged, physician notified rv Outcome: 01:29 Discharge ordered by . gs 01:48 Discharged to home ambulatory. rv 01:48 Condition: good 01:48 Discharge instructions given to patient, family, Instructed on discharge instructions, follow up and referral plans. [facility] Demonstrated understanding of instructions, follow-up care, medications. 01:49 Patient left the ED. rv Signatures: Dispatcher [employer] EDSanjuanita Mejias Brenda, RN RN bb Lloyd Rodriguez MD MD gs Vicente, Ronaldo RN RN rv
--- NOTE | 2018-12-16 01:30 | EDPHYS ---
Physician Documentation [facility] Name: Sung Brown Jr Age: 43 yrs Sex: Male : 1975 Arrival Date: 12/15/2018 Time: 22:48 Bed 30 Private MD: ED Physician Lloyd Rodriguez HPI: 12/16 01:20 This 43 yrs old Male presents to ER via Ambulatory with complaints of Hand gs Swelling. 01:20 The complaints affect the right hand diffusely. Context: POST SURGICAL FROM FRACTURE gs REPAIR FELL AND HIT HAND INCREASE PAIN AND SWELLING. Modifying factors: the symptoms are aggravated by movement. Associated signs and symptoms: Pertinent negatives: cyanosis distally, numbness distally. Severity of symptoms: At their worst the symptoms were severe, in the emergency department the symptoms are unchanged. Historical: - Allergies: 12/15 23:08 NKDA; bb - Home Meds: 23:08 Albuterol Inhl [Active]; carvedilol Oral daily [Active]; gabapentin Oral [Active]; bb Hydrocodone-Acetaminophen Oral [Active]; losartan 50 mg oral tab 1 tab once daily [Active]; carvedilol 25 mg oral tab 1 tab 2 times per day [Active]; Nexium 40 mg Oral cpDR 1 cap once daily [Active]; Symbicort inhalation [Active]; - PMHx: 23:08 ADD/ADHD; COPD; Hepatitis; Hypertension; WPW; bb - PSHx: 23:08 leg; right hand; bb - Immunization history:: Adult Immunizations up to date. - Social history:: Smoking status: Patient uses tobacco products, smokes one pack cigarettes per day. Patient uses alcohol, occasionally. Patient/guardian denies using street drugs. - Ebola Screening: : No symptoms or risks identified at this time. ROS: 12/16 01:20 All other systems are negative. gs Exam: 01:20 Constitutional: The patient appears alert, awake. gs 01:20 Musculoskeletal/extremity: Extremities: noted in the right hand: pain, swelling, tenderness, There is no evidence of ecchymosis, erythema, ROM: limited active range of motion due to pain, limited passive range of motion due to pain, Pulses: are normal with no appreciated deficits. 01:20 Skin: abscess, not appreciated, cellulitis, is not appreciated. Vital Signs: 12/15 23:08 BP 136 / 82; Pulse 73; Resp 18 S; Temp 98.4(O); Pulse Ox 97% on R/A; Weight 121.11 kg bb (R); Height 5 ft. 10 in. (177.80 cm) (R); Pain 10; 12/16 01:48 BP 138 / 79 LA Supine; Pulse 76; Resp 17 S; Pulse Ox 98% on R/A; rv 12/15 23:08 Body Mass Index 38.31 (121.11 kg, 177.80 cm) MDM: 00:13 Patient medically screened. 01:20 Data reviewed: vital signs, nurses notes, radiologic studies, plain films, FRACTURE gs PINS STABLE. Counseling: I had a detailed discussion with the patient and/or guardian regarding: the historical points, exam findings, and any diagnostic results supporting the discharge/admit diagnosis, the need for outpatient follow up, a hand specialist. Response to treatment: the patient's symptoms have markedly improved after treatment. 12/16 00:14 Order name: Hand Right 3 View XRAY 12/16 00:18 Order name: Ulnar Gutter splint; Complete Time: 01:14 gs Administered Medications: 00:18 CANCELLED (Duplicate Order): KeFLEX 1000 mg PO once gs 00:20 Drug: [place] 10 mg-325 mg 1 tabs Route: PO; rv 01:21 Follow up: Response: Pain is unchanged, physician notified rv 01:21 Drug: [place] 5 mg-325 mg 1 tabs Route: PO; rv 01:47 Follow up: Response: Pain is unchanged, physician notified rv Disposition: 12/16/18 01:29 Discharged to Home. Impression: Other acute postprocedural pain. - Condition is Stable. - Discharge Instructions: Pain Relief Preoperatively and Postoperatively. - Medication Reconciliation Form, Thank You Letter, Antibiotic Education, Prescription Opioid Use form. - Follow up: Private Physician; When: 1 - 2 days; Reason: Re-evaluation by your physician. Signatures: Dispatcher [employer] Sari Tim RN RN bb Lloyd Rodriguez MD MD gs Vicente, Ronaldo, RN RN rv Corrections: (The following items were deleted from the chart) 00:18 00:14 KeFLEX 1000 mg PO once ordered. [facility] 01:49 01:29 12/16/2018 01:29 Discharged to Home. Impression: Other acute postprocedural pain. rv Condition is Stable. Forms are Medication Reconciliation Form, Thank You Letter, Antibiotic Education, Prescription Opioid Use. Follow up: Private Physician; When: 1 - 2 days; Reason: Re-evaluation by your physician. gs
[2018-12-16] MEDS ORDERED: HYDROCODONE/APAP 5/325 MG TAB ONE (01:32)
--- NOTE | 2018-12-16 09:01 | RAD REPORT ---
EXAM DESCRIPTION: RAD - Hand Right 3 View - 12/16/2018 2:06 am CLINICAL HISTORY: Fall, right hand pain, recent surgery COMPARISON: Intraoperative examination December 10. Pre-surgical examination December 06 FINDINGS: No acute fracture change identifiable. Two pins are in place from recent fracture repair o f the fifth metacarpal. Hardware still appears to be in good positioning. Angulation deformity of the distal fifth metacarpal has been surgically corrected. Bone screws are in place from old fracture re pair of the base second metacarpal. There is no dislocation or periosteal reaction noted. IMPRESSION: No acute fracture of the right hand. Recently placed fracture fixation pins remain in good position.
== END 2018-12-16 01:49 | disposition home or self-care (01) ==
LOC: ER 22:45
DX: G89.18 Other acute postprocedural pain (principal); M79.89 Other specified soft tissue disorders; F90.9 Attention-deficit hyperactivity disorder, unspecified type; J44.9 Chronic obstructive pulmonary disease, unspecified; I10 Essential (primary) hypertension; Z98.890 Other specified postprocedural states; F17.210 Nicotine dependence, cigarettes, uncomplicated
CPT/HCPCS: 99284

== ENCOUNTER 2019-02-19 17:49 | Emergency (ER) | payer OTHER ==
--- OUTSIDE RECORDS SUMMARY | 2019-02-19 17:51 | XMS REPORT ---
[...] 0 Active not defined Proctofoam HC ND [id number] 1-1 % Rectal Active 1 application Four times a as needed day Dibucaine ND [id number] 1 % Active 1 UYEN APPLIED TOPICALLY 3 TIMES A DAY Results No Known Results Summary Purpose eClinicalWorks Submission
--- OUTSIDE RECORDS SUMMARY | 2019-02-19 17:51 | XMS REPORT ---
:1975 [facility] Address [address] [place] [address] Dr. Berry [address] [place] [id number] Care Team Providers Name Role Phone Unavailable Unavailable Unavailable Problems This patient has no known problems. Allergies, Adverse Reactions, Alerts This patient has no known allergies or adverse reactions. Medications This patient has no known medications.
[2019-02-19] MEDS ORDERED: IBUPROFEN 400 MG TAB ONE (18:48)
[2019-02-19] MEDS ORDERED: LEVALBUTEROL 1.25 MG/3 ML NEB ONE (18:48)
[2019-02-19] MEDS ORDERED: METHYLPREDNISOLONE 125 MG INJ ONE (18:48)
[2019-02-19] MEDS ORDERED: ONDANSETRON 4 MG/2 ML VIAL ONE (18:49)
[2019-02-19] MEDS ORDERED: NA CHLORIDE 0.9% 500 ML ONE (18:49)
[2019-02-19 18:59] LABS: Absolute Lymphocytes (CBC) 0.9 K/uL (0.7-4.9); Basophils % 0.2 % (0-1.3); Eosinophils % 0.2 % (0-4.4); Lymphocytes % 10.5 % (15.3-44.8); MPV 8.9 fL (7.6-11.3); Monocytes % 17.6 % (3.3-12.3); RBC Red Blood Cell Count 4.49 M/uL (4.33-5.43)
[2019-02-19 19:14] LABS: ALT/SGPT 67 U/L (12-78); AST/SGOT 78 U/L (15-37); Albumin 3.8 g/dL (3.4-5.0); Alkaline Phosphatase 84 U/L (45-117); BUN Blood Urea Nitrogen 11 mg/dL (7-18); Bicarbonate 20 mmol/L (21-32); Bilirubin Direct 0.3 mg/dL (0-0.2); Bilirubin Total 0.7 mg/dL (0.2-1.0); Glucose Level 116 mg/dL (74-106); NT PRO-BNP 212 pg/mL (<125); Potassium 3.3 mmol/L (3.5-5.1); Protein, Total 7.9 g/dL (6.4-8.2); Sodium Level 136 mmol/L (136-145); Troponin (Emerg Dept Use Only) < 0.02 ng/mL (0.0-0.045)
[2019-02-19] MEDS ORDERED: MEPERIDINE HCL 25 MG/0.5 ML ONE (19:37)
--- NOTE | 2019-02-19 19:53 | RAD REPORT ---
EXAM DESCRIPTION: CT - Angio Aorta For Dissection - 02/19/2019 7:34 pm CLINICAL HISTORY: . Chest and abd pain COMPARISON: July 2018 CT abdomen TECHNIQUE: Computed tomography angiography of the chest, abdomen pelvis were obtained. 100 cc Isovue 370 was administered intravenously. Coronal and sagittal reconstruction were performed. MIP 3D reconstruction was performed All CT scans are performed using dose optimization technique as appropriate and may include automated exposure control or mA/KV adjustment according to patient size. FINDINGS: An aortic dissection is not seen. An aortic aneurysm is not displayed. The celiac, SMA and CRISTHIAN are patent . A lung consolidation is not present. A pericardial effusion is not seen. A pleural effusion is not n oted. The liver is enlarged with a nodular contour. Fatty infiltration. Heterogeneous density of the liver. The spleen measures 16 centimeters Pancreas adrenals kidneys demonstrate no significant abnormality. The appendix is normal. There no evidence diverticulitis. No ascites is noted. Atrophy left rectus abdominis muscle IMPRESSION: Negative for an aortic dissection. Hepatosplenomegaly Nodular hepatic contour with prominent caudate and left lobes compatible with cirrhosis. The density is inhomogeneous which all may be related to inflammation. Nonemergent MRI may be helpful to detect s ubtle neoplasm. Mild to moderate splenomegaly
--- NOTE | 2019-02-19 19:54 | RAD REPORT ---
EXAM DESCRIPTION: Garrett Single View02/19/2019 7:03 pm CLINICAL HISTORY: Chest pain COMPARISON: November 2017 FINDINGS: The lungs appear clear of acute infiltrate. The heart is normal size IMPRESSION: No acute abnormalities displayed
[2019-02-19] MEDS ORDERED: NA CHLORIDE 0.9% 1,000 ML ONE (20:35)
--- NOTE | 2019-02-19 21:30 | EDPHYS ---
Physician Documentation [facility] Name: Sung Brown Jr Age: 43 yrs Sex: Male : 1975 Arrival Date: 02/19/2019 Time: 17:50 Bed 25 Private MD: ED Physician Anthony Andersen HPI: 02/19 18:37 This 43 yrs old Male presents to ER via Unassigned with complaints of Chest rn Pain, cough, sore throat, abd pain, back pain. 18:37 The patient or guardian reports chest pain that is located primarily in the anterior rn chest wall. Onset: today. The pain does not radiate. Associated signs and symptoms: Pertinent positives: abdominal pain, cough, palpitations, shortness of breath. The chest pain is described as sharp. Duration: The patient or guardian reports multiple episodes, that are intermittent. Modifying factors: The symptoms are alleviated by nothing. the symptoms are aggravated by nothing. Severity of pain: At its worst the pain was mild in the emergency department the pain is unchanged. The patient has experienced similar episodes in the past. Reports chest pain, anterior, non-radiating, sharp, not assoc with syncope. Reports COPD with increased cough and sob, as well as weeks of abd pain. Also report sore throat and back pain. No trauma. Recnt travel but only for 2 hours and no leg swelling or pain. No hemoptysis. No hx of DVT/PE.. Historical: - Allergies: 17:56 NKDA; aj - PMHx: 21:00 ADD/ADHD; COPD; Hepatitis; Hypertension; WPW; ca1 - Immunization history:: Adult Immunizations up to date. - Family history:: not pertinent. - Social history:: Smoking status: Patient uses tobacco products, smokes one-half pack cigarettes per day. - Ebola Screening: : Patient negative for fever greater than or equal to 101.5 degrees Fahrenheit, and additional compatible Ebola Virus Disease symptoms Patient denies exposure to infectious person Patient denies travel to an Ebola-affected area in the 21 days before illness onset. - Hospitalizations: : No recent hospitalization is reported. ROS: 18:37 Constitutional: Negative for fever, chills, and weight loss, Eyes: Negative for injury, rn pain, redness, and discharge, Neck: Negative for injury, pain, and swelling, Cardiovascular: Negative for edema, Respiratory: + for sob and cough Abdomen/GI: + right sided abd pain, reports vomiting and diarrhea MS/Extremity: Negative for injury and deformity, Skin: Negative for injury, rash, and discoloration, Neuro: Negative for numbness, tingling, and seizure. Exam: 18:37 Constitutional: This is a well developed, well nourished patient who is awake, alert, rn and in no acute distress. Smells of ETOh. Head/Face: Normocephalic, atraumatic. Eyes: Pupils equal round and reactive to light, extra-ocular motions intact. Lids and lashes normal. Conjunctiva and sclera are non-icteric and not injected. Cornea within normal limits. Periorbital areas with no swelling, redness, or edema. ENT: Dry MM Neck: Trachea midline, no thyromegaly or masses palpated, and no cervical lymphadenopathy. Supple, full range of motion without nuchal rigidity, or vertebral point tenderness. No Meningismus. Cardiovascular: Tachycardic, regular, no murmur Respiratory: + bilateral wheezing and coarse breath sounds, speaking full sentences Abdomen/GI: soft, + right sided abd tenderness without rebound or peritoneal signs. MS/ Extremity: Pulses equal, no cyanosis. Neurovascular intact. Full, normal range of motion. Equal circumference. Neuro: Awake and alert, GCS 15, oriented to person, place, time, and situation. Cranial nerves II-XII grossly intact. Motor strength 5/5 in all extremities. Sensory grossly intact. Vital Signs: 17:56 BP 131 / 67; Pulse 106; Resp 20; Temp 99.5; Pulse Ox 95% on R/A; Weight 121.11 kg; aj Height 5 ft. 10 in. (177.80 cm); 18:42 BP 98 / 60; Pulse 98; Resp 24; Temp 99.1(O); Pulse Ox 95% on R/A; ca1 19:42 BP 97 / 57; Pulse 90; Resp 18; Temp 98.7(O); Pulse Ox 95% on R/A; ca1 20:49 BP 112 / 66; Pulse 89; Resp 19 S; Temp 98.5(O); Pulse Ox 96% on R/A; ca1 21:30 BP 101 / 57; Pulse 84; Resp 17 S; Temp 98.6(O); Pulse Ox 97% on R/A; ca1 17:56 Body Mass Index 38.31 (121.11 kg, 177.80 cm) aj MDM: 18:00 Patient medically screened. rn 21:26 Differential diagnosis: anxiety, coronary artery disease chest wall pain, rn costochondritis, esophagitis, gastritis, gastroesophageal reflux disease (GERD), pancreatitis, pleurisy, pneumonia, pneumothorax, cirrhosis, ascites, splenomegaly. Data reviewed: vital signs, nurses notes, lab test result(s), EKG, radiologic studies, CT scan, and as a result, I will discharge patient. Counseling: I had a detailed discussion with the patient and/or guardian regarding: the historical points, exam findings, and any diagnostic results supporting the discharge/admit diagnosis, lab results, radiology results, the need for outpatient follow up, to return to the emergency department if symptoms worsen or persist or if there are any questions or concerns that arise at home. Special discussion: Based on the patient's history, exam, and Dx evaluation, there is no indication for emergent intervention or inpatient Tx. It is understood by the patient/guardian that if the Sx's persist or worsen they need to return immediately for re-evaluation. Based on the patient's Hx, exam, and Dx evaluation, there is no indication for emergent surgery or inpatient Tx. It is understood by the patient/guardian that if the Sx's persist or worsen they need to return immediately for re-evaluation. I discussed with the patient/guardian in detail that at this point there is no indication for admission to the hospital. It is understood, however, that if the symptoms persist or worsen the patient needs to return immediately for re-evaluation. Based on the history and exam findings, there is no indication for further emergent testing or inpatient evaluation. I discussed with the patient/guardian the need to see the manager of health for further evaluation of the symptoms. ED course: No acute findings other than dehydration, notified patient of cirrhosis, ETOH related, and splenomegaly, likely contributing to right and left flank pains. No signs of acute infection, BP improved with fluids, dizziness likely due to hypotension from cirrhosis and patient taking BP meds without knowing his new baseline. Recommended outpt pcp f/u for BP management and GI f/u for cirrhosis. All questions answered from patient and family. Also recommended slow cessation of drinking.. 02/19 18:22 Order name: Basic Metabolic Panel 02/19 18:22 Order name: CBC with Diff rn 02/19 18:22 Order name: LFT's; Complete Time: 20:21 rn 02/19 18:22 Order name: NT PRO-BNP; Complete Time: 20:21 02/19 18:22 Order name: Troponin (emerg Dept Use Only); Complete Time: 20:21 02/19 18:23 Order name: Basic Metabolic Panel; Complete Time: 20:21 [facility] 02/19 18:22 Order name: XRAY Chest (1 view); Complete Time: 20:22 rn 02/19 18:22 Order name: CT Aorta for Dissection; Complete Time: 20:22 rn 02/19 18:23 Order name: CBC with Automated Diff [facility] 02/19 18:24 Order name: ETOH Level; Complete Time: 20:21 [facility] 02/19 18:29 Order name: Lipase; Complete Time: 20: 02/19 18:36 Order name: Strep; Complete Time: 20: 02/19 20:02 Order name: Throat Culture [facility] 02/19 18:22 Order name: EKG; Complete Time: 18:24 rn 02/19 18:22 Order name: Cardiac monitoring; Complete Time: 18:51 rn 02/19 18:22 Order name: EKG - Nurse/Tech; Complete Time: 18:51 02/19 18:22 Order name: IV Saline Lock; Complete Time: 18:51 rn 02/19 18:22 Order name: Labs collected and sent; Complete Time: 18:51 02/19 18:22 Order name: O2 Per Protocol; Complete Time: 18:51 rn 02/19 18:22 Order name: O2 Sat Monitoring; Complete Time: 18:52 rn Administered Medications: 18:50 Drug: Zofran 4 mg Route: IVP; Site: right antecubital; mg2 20:30 Follow up: Response: No adverse reaction; Nausea is decreased ca1 18:51 Drug: Xopenex (3) 1.25 mg Route: Inhalation; mg2 18:51 Drug: SOLU-Medrol 125 mg Route: IVP; Site: right antecubital; mg2 20:30 Follow up: Response: No adverse reaction ca1 18:51 Drug: NS 0.9% 500 ml Route: IV; Rate: bolus; Site: right antecubital; mg2 20:30 Follow up: Response: No adverse reaction; IV Status: Completed infusion ca1 18:51 Drug: Motrin 800 mg Route: PO; mg2 19:30 Follow up: Response: No adverse reaction; Pain is unchanged, physician notified ca1 19:25 Drug: Demerol 25 mg Route: IVP; Site: right antecubital; ca1 20:30 Follow up: Response: No adverse reaction; Pain is decreased ca1 20:23 Drug: NS 0.9% 1000 ml Route: IV; Rate: 1000 ml; Site: right antecubital; ca1 21:35 Follow up: Response: No adverse reaction; IV Status: Completed infusion ca1 21:35 Not Given (Patient Refused): NS 0.9% 500 ml IV at bolus once ca1 Disposition: 02/19/19 21:29 Discharged to Home. Impression: Dehydration, Hypotension, unspecified, Alcoholic cirrhosis of liver, Splenomegaly, not elsewhere classified. - Condition is Stable. - Discharge Instructions: Dehydration, Adult, Hypotension, Enlarged Spleen, Alcoholic Liver Disease. - Medication Reconciliation Form, Thank You Letter, Antibiotic Education, Prescription Opioid Use form. - Follow up: Martha Guzman MD; When: As needed; Reason: Recheck today's complaints, Re-evaluation by your physician. - Problem is an ongoing problem. - Symptoms have improved. Signatures: Dispatcher [employer] EDRufina Matson RN Anthony Andrade MD MD rn Gardose, Michele, RN RN mg2 AcFanny rodriguez RN RN ca1 Corrections: (The following items were deleted from the chart) 21:39 21:29 02/19/2019 21:29 Discharged to Home. Impression: Dehydration; Hypotension, ca1 unspecified; Alcoholic cirrhosis of liver; Splenomegaly, not elsewhere classified. Condition is Stable. Forms are Medication Reconciliation Form, Thank You Letter, Antibiotic Education, Prescription Opioid Use. Follow up: Martha Guzman; When: As needed; Reason: Recheck today's complaints, Re-evaluation by your physician. Problem is an ongoing problem. Symptoms have improved. rn
--- NOTE | 2019-02-19 21:30 | ER ---
Nurse's Notes [facility] Name: Sung Brown Jr Age: 43 yrs Sex: Male : 1975 Arrival Date: 02/19/2019 Time: 17:50 Bed 25 Private MD: Diagnosis: Dehydration;Hypotension, unspecified;Alcoholic cirrhosis of liver;Splenomegaly, not elsewhere classified Presentation: 02/19 17:55 Presenting complaint: Patient states: N/V, chest pain, RUQ pain, headache, low grade aj temp, sore throat. Care prior to arrival: None. 17:55 Acuity: CINTIA 3 aj 18:10 Initial Sepsis Screen: Does the patient meet any 2 criteria?. ca1 18:10 Method Of Arrival: Wheelchair ca1 18:10 Transition of care: patient was not received from another setting of care. Onset of ca1 symptoms was February 20, 2019. Risk Assessment: Do you want to hurt yourself or someone else? Patient reports no desire to harm self or others. Initial Sepsis Screen: Does the patient meet any 2 criteria? No. Patient's initial sepsis screen is negative. Does the patient have a suspected source of infection? No. Patient's initial sepsis screen is negative. 18:10 Onset of symptoms was February 19, 2019. ca1 Triage Assessment: 17:56 General: Appears in no apparent distress. comfortable, Behavior is calm, cooperative, aj appropriate for age. Pain: Complains of pain in chest, right upper quadrant, left aspect of posterior pharynx and right aspect of posterior pharynx. Cardiovascular: Reports chest pain, nausea, shortness of breath. Historical: - Allergies: 17:56 NKDA; aj - PMHx: 21:00 ADD/ADHD; COPD; Hepatitis; Hypertension; WPW; ca1 - Immunization history:: Adult Immunizations up to date. - Family history:: not pertinent. - Social history:: Smoking status: Patient uses tobacco products, smokes one-half pack cigarettes per day. - Ebola Screening: : Patient negative for fever greater than or equal to 101.5 degrees Fahrenheit, and additional compatible Ebola Virus Disease symptoms Patient denies exposure to infectious person Patient denies travel to an Ebola-affected area in the 21 days before illness onset. - Hospitalizations: : No recent hospitalization is reported. Screenin:00 Abuse screen: Denies threats or abuse. Denies injuries from another. Nutritional ca1 screening: No deficits noted. Tuberculosis screening: No symptoms or risk factors identified. Fall Risk IV access (20 points). Assessment: 18:00 General: Appears in no apparent distress. comfortable, Behavior is calm, cooperative, ca1 appropriate for age. General: Smells of alcohol, Pt reports to have had Whisky and Coke 4-6 hours ago. Informed Provider. Pain: Complains of pain in chest Pain does not radiate. Pain currently is 9 out of 10 on a pain scale. Quality of pain is described as heavy, Pain began 2-3 days ago. Is intermittent. Neuro: Level of Consciousness is awake, alert, obeys commands, Oriented to person, place, time, situation. Cardiovascular: Heart tones S1 S2 present Capillary refill < 3 seconds Patient's skin is warm and dry. Pulses are all present. Rhythm is sinus rhythm. Respiratory: Airway is patent Respiratory effort is even, unlabored, Respiratory pattern is regular, symmetrical, Breath sounds are clear bilaterally. GI: Abdomen is round non-distended, Bowel sounds present X 4 quads. Abd is soft and non tender X 4 quads. : No deficits noted. No signs and/or symptoms were reported regarding the genitourinary system. EENT: No deficits noted. No signs and/or symptoms were reported regarding the EENT system. Derm: Skin is intact, is healthy with good turgor, Skin is pink, warm \T\ dry. Musculoskeletal: Circulation, motion, and sensation intact. Capillary refill < 3 seconds, Range of motion: intact in all extremities. 19:00 Reassessment: Patient appears in no apparent distress at this time. No changes from ca1 previously documented assessment. Patient and/or family updated on plan of care and expected duration. Pain level reassessed. Notified Dr. Andersen regarding pt's BP of SBP <100. Orders given and adminsitered. 20:24 Reassessment: Patient appears in no apparent distress at this time. Patient and/or ca1 family updated on plan of care and expected duration. Pain level reassessed. Patient is alert, oriented x 3, equal unlabored respirations, skin warm/dry/pink. 21:30 Reassessment: Patient appears in no apparent distress at this time. Patient and/or ca1 family updated on plan of care and expected duration. Pain level reassessed. Patient is alert, oriented x 3, equal unlabored respirations, skin warm/dry/pink. Refused NS bolus ordered. Notified provider. Vital Signs: 17:56 BP 131 / 67; Pulse 106; Resp 20; Temp 99.5; Pulse Ox 95% on R/A; Weight 121.11 kg; aj Height 5 ft. 10 in. (177.80 cm); 18:42 BP 98 / 60; Pulse 98; Resp 24; Temp 99.1(O); Pulse Ox 95% on R/A; ca1 19:42 BP 97 / 57; Pulse 90; Resp 18; Temp 98.7(O); Pulse Ox 95% on R/A; ca1 20:49 BP 112 / 66; Pulse 89; Resp 19 S; Temp 98.5(O); Pulse Ox 96% on R/A; ca1 21:30 BP 101 / 57; Pulse 84; Resp 17 S; Temp 98.6(O); Pulse Ox 97% on R/A; ca1 17:56 Body Mass Index 38.31 (121.11 kg, 177.80 cm) ED Course: 17:50 Patient arrived in ED. as 17:55 Triage completed. aj 17:56 Arm band placed on left wrist. Patient placed in an exam room. aj 18:00 Anthony Andersen MD is Attending Physician. rn 18:00 Patient has correct armband on for positive identification. Placed in gown. Bed in low ca1 position. Call light in reach. Side rails up X 1. media monitor on. Pulse ox on. NIBP on. Warm blanket given. 18:00 No provider procedures requiring assistance completed. Patient maintains SpO2 ca1 saturation greater than 95% on room air. 18:23 Fanny Santillan, RN is Primary Nurse. ca1 18:24 Radiology exam delayed due to lab results not completed at this time. (BUN/Creatinine). vm2 18:30 Inserted saline lock: 20 gauge in right antecubital area, using aseptic technique. ca1 Blood collected. 18:58 Radiology exam delayed due to lab results not completed at this time. (BUN/Creatinine). vm2 19:01 XRAY Chest (1 view) In Process Unspecified. EDMS 19:35 CT Aorta for Dissection In Process Unspecified. EDMS 21:28 Martha Guzman MD is Referral Physician. rn 21:30 IV discontinued, intact, bleeding controlled, No redness/swelling at site. Pressure ca1 dressing applied. Administered Medications: 18:50 Drug: Zofran 4 mg Route: IVP; Site: right antecubital; mg2 20:30 Follow up: Response: No adverse reaction; Nausea is decreased ca1 18:51 Drug: Xopenex (3) 1.25 mg Route: Inhalation; mg2 18:51 Drug: SOLU-Medrol 125 mg Route: IVP; Site: right antecubital; mg2 20:30 Follow up: Response: No adverse reaction ca1 18:51 Drug: NS 0.9% 500 ml Route: IV; Rate: bolus; Site: right antecubital; mg2 20:30 Follow up: Response: No adverse reaction; IV Status: Completed infusion ca1 18:51 Drug: Motrin 800 mg Route: PO; mg2 19:30 Follow up: Response: No adverse reaction; Pain is unchanged, physician notified ca1 19:25 Drug: Demerol 25 mg Route: IVP; Site: right antecubital; ca1 20:30 Follow up: Response: No adverse reaction; Pain is decreased ca1 20:23 Drug: NS 0.9% 1000 ml Route: IV; Rate: 1000 ml; Site: right antecubital; ca1 21:35 Follow up: Response: No adverse reaction; IV Status: Completed infusion ca1 21:35 Not Given (Patient Refused): NS 0.9% 500 ml IV at bolus once ca1 Outcome: 21:29 Discharge ordered by MD. rn 21:38 Discharged to home ambulatory. ca1 21:38 Condition: stable 21:38 Discharge instructions given to patient, Instructed on discharge instructions, follow up and referral plans. Demonstrated understanding of instructions, follow-up care. 21:39 Patient left the ED. ca1 Signatures: Dispatcher [employer] EDMS Rufina Castellon RN RN aj Martinez, Amelia as Nieto, Roman, MD MD rn McGuire, Victoria vm2 Gardose, Michele, RN RN mg2 Acob, Cheryl, RN RN ca1 Corrections: (The following items were deleted from the chart) 02/20 00:34 02/19 18:10 Onset of symptoms was February 20, 2019 ca1 ca1 02/20 00:40 02/19 19:00 Reassessment: Patient appears in no apparent distress at this time. No ca1 changes from previously documented assessment. Patient and/or family updated on plan of care and expected duration. Pain level reassessed. ca1 02/20 00:40 02/19 21:30 Reassessment: Patient appears in no apparent distress at this time. No ca1 changes from previously documented assessment. Patient and/or family updated on plan of care and expected duration. Pain level reassessed. ca1 02/20 00:40 02/19 20:24 Reassessment: Patient appears in no apparent distress at this time. Patient ca1 and/or family updated on plan of care and expected duration. Pain level reassessed. ca1
[2019-02-19 22:29] LABS: Blood Morphology Comment NOT SEEN (NOT SEEN); Platelet Estimate DECR
--- NOTE | 2019-02-20 10:09 | EKG ---
Test Date: 2019-02-19 Test Time: 18:03:34 Headend Technician: MAMTA MEASUREMENT RESULTS: Intervals: Rate: 98 AL: 134 QRSD: 90 QT: 338 QTc: 431 Heppner: P: 61 AL: 134 QRS: 74 T: 51 INTERPRETIVE STATEMENTS: Normal sinus rhythm Normal ECG Compared to ECG 12/10/2018 08:14:14 No significant changes Electronically Signed On 02-20-19 10:09:01 CDT by Candido [place]
== END 2019-02-19 21:39 | disposition home or self-care (01) ==
LOC: ER 17:49
DX: E86.0 Dehydration (principal); I95.9 Hypotension, unspecified; K70.30 Alcoholic cirrhosis of liver without ascites; R16.1 Splenomegaly, not elsewhere classified; J44.9 Chronic obstructive pulmonary disease, unspecified; F90.9 Attention-deficit hyperactivity disorder, unspecified type; I10 Essential (primary) hypertension; F17.210 Nicotine dependence, cigarettes, uncomplicated
CPT/HCPCS: 96361; 93005; 87070; 85025; 80048; 36415; 80320; 80076; 87081; 84484; 83690; 83880; 71275; 74175; 71045; 96375; 96374; 99285; Q9967; J2175; J7030; J2930; J2405

== ENCOUNTER 2019-03-28 23:09 | Emergency (ER) | payer OTHER ==
--- OUTSIDE RECORDS SUMMARY | 2019-03-28 23:11 | XMS REPORT ---
:1975 [facility] Address [address] [place] [address] Dr. Berry [address] [place] [id number] Care Team Providers Name Role Phone Unavailable Unavailable Unavailable Problems This patient has no known problems. Allergies, Adverse Reactions, Alerts This patient has no known allergies or adverse reactions. Medications This patient has no known medications.
--- OUTSIDE RECORDS SUMMARY | 2019-03-28 23:11 | XMS REPORT ---
[...] 0 Active not defined Proctofoam HC ND 10545700406 1-1 % Rectal Active 1 application Four times a as needed day Dibucaine ND 87367562221 1 % Active 1 UYEN APPLIED TOPICALLY 3 TIMES A DAY Results No Known Results Summary Purpose eClinicalWorks Submission
--- OUTSIDE RECORDS SUMMARY | 2019-03-28 23:12 | XMS REPORT ---
:1975 Author Organization [employer] Care Team Providers Name Role Phone Cookie Pope Provider Role Unavailable Allergies, Adverse Reactions, Alerts Substance Reaction Event Type Lisinopril severe fatigue Drug Allergy Problems Problem Type Condition Code Onset Dates Condition Status Problem Knee pain M25.569 Active Problem Hypertension I10 Active Problem COPD (chronic obstructive pulmonary J44.9 Active disease) Problem Alcohol withdrawal syndrome without F10.230 Active complication Problem Chronic hepatitis C without hepatic B18.2 Active coma Problem Depression with anxiety F41.8 Active Problem Nicotine dependence F17.200 Active Problem Radiculopathy M54.10 Active Problem Pulmonary emphysema, unspecified J43.9 Active emphysema type Problem Alcoholic fatty liver K70.0 Active Assessment Hypertension I10 Active Assessment Chronic pain syndrome G89.4 Active Assessment Depression with anxiety F41.8 Active Problem Wheezing R06.2 Active Problem IBS (irritable bowel syndrome) K58.9 Active Problem Ankle pain M25.579 Active Problem Back pain M54.9 Active Problem Chronic pain syndrome G89.4 Active Problem GERD (gastroesophageal reflux K21.9 Active disease) Medications Medication Code Code Instructions Start End Status Dosage System Date Date Nicotine [facility] 93011742186 21 MG/24HR Active 1 patch to Transdermal skin Once a day Proctofoam HC [facility] 39492741103 1-1 % Rectal Active 1 application Four times a as needed day Carvedilol [facility] 55267662299 25 MG Active 1 TAB(S) 2 TIMES A DAY ORALLY Symbicort [facility] 26315089733 160-4.5 Sept Active inhale 2 MCG/ACT 17, puffs by Inhalation 2018 mouth twice Twice a day daily Esomeprazole ND 96431803229 40 Active TAKE 1 Magnesium CAPSULE BY MOUTH EVERY DAY Escitalopram [facility] 97564556005 10 MG Orally February Active 1 tablet Oxalate Once a day 2018 Albuterol Sulfate [facility] 32563259593 (2.5 MG/3ML) Active 3 ml as 0.083% needed Inhalation Three times a day Losartan Potassium [facility] 15612274430 50 Orally Once Active take 1 tablet a day by mouth every day Tramadol HCl ND 48665998606 50 MG Orally February Active 1 tablet as Once a day prn 15, 08, needed pain 2018 2018 Ventolin HFA [facility] 08938550027 108 (90 Base) Active 2 puffs MCG/ACT inhaled every Inhalation 4-6 hours as every 6 hrs needed BusPIRone HCl ND 81537501636 5 MG Orally February Active 1 tablet Twice a day 2018 Viberzi [facility] 06343591845 75 MG Orally Active 1 tablet with Twice a day food Dibucaine ND 13484392382 1 % Externally February Active 1 junior applied Three times a 17, topically 3 day 2019 times a day Cyclobenzaprine [facility] 98475513973 5 MG Orally Active 1 tablet as HCl Three times a needed day Results No Known Results Summary Purpose eClinicalWorks Submission
--- OUTSIDE RECORDS SUMMARY | 2019-03-28 23:12 | XMS REPORT ---
:1975 Author Organization eClinicalWorks Care Team Providers Name Role Phone Cookie Pope Provider Role Unavailable Allergies No Known Allergies Problems Problem Type Condition Code Onset Dates [...] Problem Alcoholic fatty liver K70.0 Active Problem Wheezing R06.2 Active Problem IBS (irritable bowel syndrome) K58.9 Active Problem Ankle pain M25.579 Active Problem Back pain M54.9 Active Problem Chronic pain syndrome G89.4 Active Problem GERD (gastroesophageal reflux K21.9 Active disease) Medications No Known Medications Results No Known Results Summary Purpose eClinicalWorks Submission
--- OUTSIDE RECORDS SUMMARY | 2019-03-28 23:12 | XMS REPORT ---
[...] Alcohol withdrawal syndrome without F10.230 Active complication Assessment Depression with anxiety F41.8 Active Problem Chronic hepatitis C without hepatic B18.2 Active coma Problem Depression with anxiety F41.8 Active Problem Nicotine dependence F17.200 Active Problem Radiculopathy M54.10 Active Problem Pulmonary emphysema, unspecified J43.9 Active emphysema type Problem Alcoholic fatty liver K70.0 Active Assessment Nicotine dependence F17.200 Active Assessment Alcohol withdrawal syndrome without F10.230 Active complication Assessment Hypertension I10 Active Problem Wheezing R06.2 Active Problem IBS (irritable bowel syndrome) K58.9 Active Problem Ankle pain M25.579 Active Problem Back pain M54.9 Active Problem Chronic pain syndrome G89.4 Active Problem GERD (gastroesophageal reflux K21.9 Active disease) Medications Medication Code Code Instructions Start End Status Dosage System Date Date Nicotine [facility] 80787209691 21 MG/24HR Active 1 patch to Transdermal skin Once a day Ventolin HFA [facility] 62938063766 108 (90 Base) Active 2 puffs MCG/ACT inhaled every Inhalation 4-6 hours as every 6 hrs needed Albuterol Sulfate ND 49997562039 (2.5 MG/3ML) Active 3 ml as 0.083% needed Inhalation Three times a day Cyclobenzaprine ND 09687860295 5 MG Orally Active 1 tablet as HCl Three times a needed day Carvedilol ND 43395843045 25 MG Active 1 TAB(S) 2 TIMES A DAY ORALLY Losartan Potassium ND 30477211642 50 Orally Once Active take 1 tablet a day by mouth every day Esomeprazole ND 36868451019 40 Active TAKE 1 Magnesium CAPSULE BY MOUTH EVERY DAY Proctofoam HC [facility] 52959902782 1-1 % Rectal Active 1 application Four times a as needed day Dibucaine [facility] 71832624149 1 % Externally February Active 1 junior applied Three times a 17, topically 3 day 2019 times a day BusPIRone HCl ND 31180708899 5 MG Orally February Active 1 tablet Twice a day 2018 Triamcinolone & NDC 0 0.1 % Active 1 application Emollient Externally Twice a day Symbicort [facility] 80361892165 160-4.5 Sept Active inhale 2 MCG/ACT 17, puffs by Inhalation 2018 mouth twice Twice a day daily Viberzi [facility] 99799368562 75 MG Orally Active 1 tablet with Twice a day food Results No Known Results Summary Purpose eClinicalWorks Submission
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
== END 2019-03-29 00:39 | disposition home or self-care (01) ==
LOC: ER 23:09
DX: M79.641 Pain in right hand (principal); M79.642 Pain in left hand; I10 Essential (primary) hypertension; I45.6 Pre-excitation syndrome; J44.9 Chronic obstructive pulmonary disease, unspecified; F90.9 Attention-deficit hyperactivity disorder, unspecified type; F17.210 Nicotine dependence, cigarettes, uncomplicated
CPT/HCPCS: 99283

== ENCOUNTER 2019-04-17 00:32 | Emergency (ER) | payer OTHER ==
--- OUTSIDE RECORDS SUMMARY | 2019-04-17 00:34 | XMS REPORT ---
:1975 Author Organization [facility] Address [address] [place] [address] Dr. Berry [address] [place] [id number] Care Team Providers Name Role Phone Unavailable Unavailable Unavailable Problems This patient has no known problems. Allergies, Adverse Reactions, Alerts This patient has no known allergies or adverse reactions. Medications This patient has no known medications.
--- OUTSIDE RECORDS SUMMARY | 2019-04-17 00:34 | XMS REPORT ---
[...] End Status Dosage System Date Date Nicotine [facility] 79654953060 21 MG/24HR Active 1 patch to Transdermal skin Once a day Ventolin HFA [facility] 71923255491 108 (90 Base) Active 2 puffs MCG/ACT inhaled every Inhalation 4-6 hours as every 6 hrs needed Albuterol Sulfate ND 72168292139 (2.5 MG/3ML) Active 3 ml as 0.083% needed Inhalation Three times a day Cyclobenzaprine ND 19120808169 5 MG Orally Active 1 tablet as HCl Three times a needed day Carvedilol ND 96087269115 25 MG Active 1 TAB(S) 2 TIMES A DAY ORALLY Losartan Potassium ND 66185459784 50 Orally Once Active take 1 tablet a day by mouth every day Esomeprazole ND 42659907697 40 Active TAKE 1 Magnesium CAPSULE BY MOUTH EVERY DAY Proctofoam HC [facility] 22263319686 1-1 % Rectal Active 1 application Four times a as needed day Dibucaine [facility] 47615369903 1 % Externally February Active 1 junior applied Three times a 17, topically 3 day 2019 times a day BusPIRone HCl ND 00967930547 5 MG Orally February Active 1 tablet Twice a day 2018 Triamcinolone & NDC 0 0.1 % Active 1 application Emollient Externally Twice a day Symbicort [facility] 93341543688 160-4.5 Sept Active inhale 2 MCG/ACT 17, puffs by Inhalation 2018 mouth twice Twice a day daily Viberzi [facility] 36415215022 75 MG Orally Active 1 tablet with Twice a day food Results No Known Results Summary Purpose eClinicalWorks Submission
--- OUTSIDE RECORDS SUMMARY | 2019-04-17 00:34 | XMS REPORT ---
[...] End Status Dosage System Date Date Nicotine [facility] 26161614213 21 MG/24HR Active 1 patch to Transdermal skin Once a day Proctofoam HC [facility] 91689428370 1-1 % Rectal Active 1 application Four times a as needed day Carvedilol [facility] 95202667244 25 MG Active 1 TAB(S) 2 TIMES A DAY ORALLY Symbicort [facility] 88205130579 160-4.5 Sept Active inhale 2 MCG/ACT 17, puffs by Inhalation 2018 mouth twice Twice a day daily Esomeprazole ND 32369550499 40 Active TAKE 1 Magnesium CAPSULE BY MOUTH EVERY DAY Escitalopram [facility] 91868236059 10 MG Orally February Active 1 tablet Oxalate Once a day [address] [facility] 31084624226 (2.5 MG/3ML) Active 3 ml as 0.083% needed Inhalation Three times a day Losartan Potassium [facility] 35852950477 50 Orally Once Active take 1 tablet a day by mouth every day Tramadol HCl ND 08455589243 50 MG Orally February Active 1 tablet as Once a day prn 15, 08, needed pain 2018 [address] [facility] 11888350383 108 (90 Base) Active 2 puffs MCG/ACT inhaled every Inhalation 4-6 hours as every 6 hrs needed BusPIRone HCl ND 04637130882 5 MG Orally February Active 1 tablet Twice a day [address] [facility] 12650762947 75 MG Orally Active 1 tablet with Twice a day food Dibucaine ND 74657729747 1 % Externally February Active 1 junior applied Three times a 17, topically 3 day 2019 times a day Cyclobenzaprine [facility] 65540727529 5 MG Orally Active 1 tablet as HCl Three times a needed day Results No Known Results Summary Purpose eClinicalWorks Submission
--- OUTSIDE RECORDS SUMMARY | 2019-04-17 00:34 | XMS REPORT ---
[...] 0 Active not defined Proctofoam HC ND 95683620930 1-1 % Rectal Active 1 application Four times a as needed day Dibucaine ND 51860332047 1 % Active 1 UYEN APPLIED TOPICALLY 3 TIMES A DAY Results No Known Results Summary Purpose eClinicalWorks Submission
--- OUTSIDE RECORDS SUMMARY | 2019-04-17 00:35 | XMS REPORT ---
:1975 Author Organization eClinicalWorks Care Team Providers Name Role Phone StearnsJennifer awan Provider Role Unavailable Allergies, Adverse Reactions, Alerts Substance Reaction Event Type Lisinopril severe fatigue Drug Allergy Problems Problem Type Condition Code Onset Dates Condition Status Problem Radiculopathy M54.10 Active Problem Alcoholic fatty liver K70.0 Active Problem Nicotine dependence F17.200 Active Problem COPD with exacerbation J44.1 Active Assessment Chest pain on breathing R07.1 Active Problem Chest pain on breathing R07.1 Active Assessment COPD with exacerbation J44.1 Active Assessment Wheezing R06.2 Active Problem Anxiety F41.9 Active Problem Chronic hepatitis C without hepatic B18.2 Active coma Problem Pulmonary emphysema, unspecified J43.9 Active emphysema type Problem Depression with anxiety F41.8 Active Problem Alcohol withdrawal syndrome without F10.230 Active complication Problem GERD (gastroesophageal reflux K21.9 Active disease) Problem Knee pain M25.569 Active Problem Back pain M54.9 Active Problem Wheezing R06.2 Active Problem IBS (irritable bowel syndrome) K58.9 Active Assessment Nicotine dependence F17.200 Active Problem Ankle pain M25.579 Active Problem COPD (chronic obstructive pulmonary J44.9 Active disease) Assessment Anxiety F41.9 Active Problem Chronic pain syndrome G89.4 Active Problem Hypertension I10 Active Medications Medication Code Code Instructions Start End Status Dosage System Date Date Esomeprazole [facility] 20897049207 40 Active TAKE 1 Magnesium CAPSULE BY MOUTH EVERY DAY BusPIRone HCl ND 93538848608 5 MG Orally February Active 1 tablet Twice a day 2018 Nicotine ND 19269118323 21 MG/24HR Active 1 patch to Transdermal skin Once a day Viberzi [facility] 25051469344 75 MG Orally Active 1 tablet with Twice a day food Symbicort ND 96777857909 160-4.5 Sept Active inhale 2 MCG/ACT 17, puffs by Inhalation 2018 mouth twice Twice a day daily HydrOXYzine HCl ND 38220016018 25 MG Orally Apr 15, Active 1 tablet as every 8 hrs 2018 needed Escitalopram ND 47947772741 10 MG Orally February Active 1 tablet Oxalate Once a day 2018 Albuterol Sulfate [facility] 14941825375 (2.5 MG/3ML) Active 3 ml as 0.083% needed Inhalation Three times a day PredniSONE ND 08201115132 10 MG Orally Apr 15Mar Active as directed tabs once a 2018, day X 5 days 2018 then 1 tab daily X 5 days Proctofoam HC [facility] 88705688005 1-1 % Rectal Active 1 application Four times a as needed day Losartan Potassium [facility] 95512398401 50 Orally Once Active take 1 tablet a day by mouth every day Carvedilol [facility] 08800196073 25 MG Active 1 TAB(S) 2 TIMES A DAY ORALLY Cyclobenzaprine [facility] 75643521159 5 MG Orally Active 1 tablet as HCl Three times a needed day Results No Known Results Summary Purpose eClinicalWorks Submission
[2019-04-17] MEDS ORDERED: ALBUTEROL 2.5 MG/3 ML NEB SOL ONE (00:54)
[2019-04-17] MEDS ORDERED: IPRATROPIUM BROM 0.5MG/2.5ML ONE (00:54)
[2019-04-17] MEDS ORDERED: METHYLPREDNISOLONE 125 MG INJ ONE (00:54)
[2019-04-17] MEDS ORDERED: MORPHINE 4 MG/ML SYR ONE ×2 (01:00→02:40)
[2019-04-17] MEDS ORDERED: ONDANSETRON 4 MG/2 ML VIAL ONE (01:00)
[2019-04-17 01:23] LABS: Arterial Blood Carboxyhemoglob 4.6 % (0-1.5); Blood Gas Oxyhemoglobin 84.4 % (94-97); Blood O2 Saturation 89.3 % (92-98.5)
[2019-04-17 01:32] LABS: Absolute Lymphocytes (CBC) 2.9 K/uL (0.7-4.9); Basophils % 0.5 % (0-1.3); Hematocrit 44.1 % (39.6-49.0); Lymphocytes % 36.4 % (15.3-44.8); RBC Red Blood Cell Count 4.44 M/uL (4.33-5.43)
[2019-04-17 01:34] LABS: Protime INR 1.06
[2019-04-17 01:54] LABS: ALT/SGPT 55 U/L (12-78); AST/SGOT 55 U/L (15-37); Albumin 3.8 g/dL (3.4-5.0); Alkaline Phosphatase 93 U/L (45-117); BUN Blood Urea Nitrogen 9 mg/dL (7-18); Bicarbonate 21 mmol/L (21-32); Bilirubin Direct 0.1 mg/dL (0-0.2); Bilirubin Total 0.3 mg/dL (0.2-1.0); Glucose Level 173 mg/dL (74-106); Magnesium 1.9 mg/dL (1.8-2.4); NT PRO-BNP 34 pg/mL (<125); Potassium 3.9 mmol/L (3.5-5.1); Protein, Total 7.9 g/dL (6.4-8.2); Sodium Level 137 mmol/L (136-145); Troponin (Emerg Dept Use Only) < 0.02 ng/mL (0.0-0.045)
[2019-04-17] MEDS ORDERED: HYDROCODONE/APAP 5/325 MG TAB ONE (01:58)
[2019-04-17] MEDS ORDERED: CEFTRIAXONE/SWI 1gm 1 GM/10 ML SYR ONE (02:40)
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
--- NOTE | 2019-04-17 10:17 | RAD REPORT ---
EXAM DESCRIPTION: RAD - Chest Single View - 04/17/2019 2:01 am CLINICAL HISTORY: Sharp left-sided chest pain COMPARISON: February 19, 2019 TECHNIQUE: AP portable chest image was obtained 0134 hours . FINDINGS: No focal lung parenchymal process. Inspiration is shallow. Lung markings are similar to co mparison. Heart and vasculature are normal. No measurable pleural effusion and no pneumothorax. No ac sleetmute bony abnormality seen. No acute aortic findings suspected. IMPRESSION: No acute cardiopulmonary process. No significant interval change.
--- NOTE | 2019-04-17 13:49 | EKG ---
Test Date: 2019-04-17 Test Time: 00:32:58 Sweet Pickled Fruit Maker: ANTHONY MEASUREMENT RESULTS: Intervals: Rate: 100 MI: 142 QRSD: 86 QT: 364 QTc: 469 Bybee: P: 60 MI: 142 QRS: 56 T: 50 INTERPRETIVE STATEMENTS: Normal sinus rhythm Normal ECG Compared to ECG 02/19/2019 18:03:34 No significant changes Electronically Signed On 04-17-19 13:47:19 CDT by Candido Beach
== END 2019-04-17 02:57 | disposition home or self-care (01) ==
LOC: ER 00:32
DX: J44.1 Chronic obstructive pulmonary disease with (acute) exacerbation (principal); I10 Essential (primary) hypertension; F17.210 Nicotine dependence, cigarettes, uncomplicated; I45.6 Pre-excitation syndrome; F90.9 Attention-deficit hyperactivity disorder, unspecified type
CPT/HCPCS: 93005; 87040 ×2; 85025; 80048; 36415; 83735; 85610; 80076; 83605; 84484; 84145; 83880; 71045; 94640; 82805; 99285; J0696; J2930; J2405; 96365; 96375

== ENCOUNTER 2020-01-09 16:18 | Emergency (ER) | payer OTHER ==
--- OUTSIDE RECORDS SUMMARY | 2020-01-09 16:20 | XMS REPORT ---
:1975 Author Organization [employer] Care Team Providers Name Role Phone Cookie Pope Provider Role Unavailable Allergies, Adverse Reactions, Alerts Substance Reaction Event Type Lisinopril severe fatigue Drug Allergy Problems Problem Type Condition Code Onset Dates Condition Statu s Problem IBS (irritable bowel syndrome) K58.9 Active [...] 0 Active not defined Proctofoam HC ND 34403541932 1-1 % Rectal Active 1 application Four times a as needed day Dibucaine ND [id number] 1 % Active 1 UYEN APPL IED TOPICALLY 3 TIMES A DAY Results No Known Results Summary Purpose [employer] Submission
--- OUTSIDE RECORDS SUMMARY | 2020-01-09 16:20 | XMS REPORT ---
:1975 Author Organization [facility] t Address [address] [place] [address] Care Team Providers Name Role Phone Unavailable Unavailable Unavailable Problems Condition Condition Condition Status Onset Resolution Last Treating Co mments Source Name Details Category Date Date Treatment Clinician Date IBS IBS Problem Active [facility] (irritable (irritable Krista kes - bowel bowel Memoria syndrome) syndrome) [facility] GERD GERD Problem Active [facility] (gastroeso (gastroeso Krista kes - phageal phageal Memoria reflux reflux l disease) disease[facility] Back pain Back pain Problem Active [facility] Pulmonary Pulmonary Problem Active [facility] emphysema, emphysema, Krista kes - unspecifie unspecifie Me moria d d l emphysema emphysema Outp ati type type ent Clinics Alcoholic Alcoholic Problem Active [facility] fatty fatty [facility] liver liver [facility] Chronic Chronic Problem Active [facility] hepatitis hepatitis Luke s - C without C without Yomi delmer hepatic hepatic l coma coma [facility] COPD COPD Problem Active [facility] (chronic (chronic [facility] - obstructiv obstructiv Me moria e e l pulmonary pulmonary Outp ati disease) disease) ent Clinics Knee pain Knee pain Problem Active [facility] Nicotine Nicotine Problem [facility] dependence Krista kes - [facility] Hypertensi Hypertensi Problem Active [facility] Chronic Chronic Problem Active [facility] pain pain [facility] - syndrome syndrome [facility]ori a l [facility] Radiculopa Radiculopa Problem Active [facility] Ankle pain Ankle pain Problem Active [facility] Wheezing Wheezing Problem [facility] Alcohol Alcohol Problem Active [facility] withdrawal withdrawal Krista kes - syndrome syndrome Memori a without without l complicati complicati Ou tpati on on ent Clinics Depression Depression Problem Active [facility] with with [facility] - anxiety anxiety Memoria l [facility] COPD with COPD with Problem Active [facility] exacerbati exacerbati Krista kes - on on Memoria l [facility] Chest pain Chest pain Problem Active [facility] on on [facility] - breathing breathing Yomi delmer l [facility] Anxiety Anxiety Problem Active [facility] Allergies, Adverse Reactions, Alerts Allergy Allergy Status Severity Reaction(s) Onset Inactive Treating Comm ents Source Name Type Date Date Clinician Lisinopr Adverse Active severe [facility] Reaction fatigue [facility] - [facility] Medications Ordered Filled Start Stop Current Ordering Indication Dosage Frequency Signature Comments Components Source Medication Medication Date Date Medication? Clinician (SIG) Name Name Omeprazole Omeprazole Yes Jennifer [address] [facility] 1-29 [place] 30 minutes [facility] - 00:00: before Memoria 00 morning l meal [facility] Procedures This patient has no known procedures. Encounters Start End Encounter Admission Attending Care Care Encounter Source Date/Time Date/Time Type Type Clinicians Facility Department ID 2019-09-24 2019-09-24 [place] [place] [id number] [facility] 19:14:00 19:14:00 [facility] Medicine [facility] 2019-04-15 2019-04-15 [facility] [id number] [facility] 08:40:00 08:40:00 [facility] 2019-03-10 2019-03-10 [facility] [id number] [facility] 14:40:00 14:40:00 [facility] Clin[facility] 2019-02-26 2019-02-26 [facility] [id number] [facility] 09:40:00 09:40:00 [facility] 2019-02-24 2019-02-24 [facility] [id number] [facility] 14:16:00 14:16:00 [facility] 2018-11-14 2018-11-14 Outpatient Angelica Romero [id number] [facility]3] 13:30:00 13:30:00 [facility] Clinics Results This patient has no known results.
--- OUTSIDE RECORDS SUMMARY | 2020-01-09 16:21 | XMS REPORT ---
:1975 Author Organization e[employer]Works Care Team Providers Name Role Phone Cookie Pope Provider Role Unavailable Allergies, Adverse Reactions, Alerts Substance Reaction Event Type Lisinopril severe fatigue Drug Allergy Problems Problem Type Condition Code Onset Dates Condition Statu s Problem Knee pain M25.569 Active Problem Hypertension I10 Active Problem COPD (chronic obstructive pulmonary J44.9 Active disease) Problem Alcohol withdrawal syndrome without F10.230 Active complication Assessment Depression with anxiety F41.8 Acti ve Problem Chronic hepatitis C without hepatic B18.2 Active coma Problem Depression with anxiety F41.8 Acti ve Problem Nicotine dependence F17.200 Active Problem Radiculopathy [...] End Status Dosage System Date Date Nicotine [facility] 95984107876 21 MG/24HR Active 1 patch to Transdermal skin Once a day Ventolin HFA ND 55944435232 108 (90 Base) Active 2 puffs MCG/ACT inhaled every Inhalation 4-6 hours as every 6 hrs needed Albuterol Sulfate ND 78483619578 (2.5 MG/3ML) Activ e 3 ml as 0.083% needed Inhalation Three times a day Cyclobenzaprine ND 71601396837 5 MG Orally Active 1 tablet as HCl Three times a needed day Carvedilol ND 59605551552 25 MG Active 1 TAB(S) 2 TIMES A DAY ORALLY Losartan Potassium ND 31551594644 50 Orally Once Ac tive take 1 tablet a day by mouth every day Esomeprazole ND 30980957672 40 Active TAKE 1 Magnesium CAPSULE BY MOUTH EVERY DAY Proctofoam HC [facility] 76928738391 1-1 % Rectal Active 1 application Four times a as needed day Dibucaine [facility] 13984709810 1 % Externally February Active 1 a pp applied Three times a 17, topically 3 day 2019 times a day BusPIRone HCl [facility] 43324701593 5 MG Orally February Active 1 tablet Twice a day 2018 Triamcinolone & NDC 0 0.1 % Active 1 applic ation Emollient Externally Twice a day Symbicort [facility] 37910711502 160-4.5 Sept Active inhale 2 MCG/ACT 17, puffs by Inhalation 2018 mouth twice Twice a day daily Viberzi [facility] 11134613624 75 MG Orally Active 1 table t with Twice a day food Results No Known Results Summary Purpose eClinicalWorks Submission
--- OUTSIDE RECORDS SUMMARY | 2020-01-09 16:21 | XMS REPORT ---
[...] G89.4 Active Assessment Depression with anxiety F41.8 Acti ve Problem Wheezing R06.2 Active Problem IBS (irritable bowel syndrome) K58.9 Active Problem Ankle pain M25.579 Active Problem Back pain M54.9 Active Problem Chronic pain syndrome G89.4 Active Problem GERD (gastroesophageal reflux K21.9 Active disease) Medications Medication Code Code Instructions Start End Status Dosage System Date Date Nicotine [facility] 18276281219 21 MG/24HR Active 1 patch to Transdermal skin Once a day Proctofoam HC [facility] 61810769965 1-1 % Rectal Active 1 application Four times a as needed day Carvedilol [facility] 00677181777 25 MG Active 1 TAB(S) 2 TIMES A DAY ORALLY Symbicort ND 93158937102 160-4.5 Sept Active inhale 2 MCG/ACT 17, puffs by Inhalation 2018 mouth twice Twice a day daily Esomeprazole ND 60167630319 40 Active TAKE 1 Magnesium CAPSULE BY MOUTH EVERY DAY Escitalopram ND 91979611668 10 MG Orally February Active 1 tablet Oxalate Once a day 2018 Albuterol Sulfate [facility] 55536512144 (2.5 MG/3ML) Activ e 3 ml as 0.083% needed Inhalation Three times a day Losartan Potassium ND 92206253994 50 Orally Once Ac tive take 1 tablet a day by mouth every day Tramadol HCl ND 86262031183 50 MG Orally February Active 1 tablet as Once a day prn 15, , needed pain 2018 2018 Ventolin HFA [facility] 75620673449 108 (90 Base) Active 2 puffs MCG/ACT inhaled every Inhalation 4-6 hours as every 6 hrs needed BusPIRone HCl ND 81466762064 5 MG Orally February Active 1 tablet Twice a day 2018 Viberzi [facility] 59682700277 75 MG Orally Active 1 table t with Twice a day food Dibucaine ND 22744162617 1 % Externally February Active 1 a pp applied Three times a 17, topically 3 day 2019 times a day Cyclobenzaprine [facility] 46965316323 5 MG Orally Active 1 tablet as HCl Three times a needed day Results No Known Results Summary Purpose eClinicalWorks Submission
--- OUTSIDE RECORDS SUMMARY | 2020-01-09 16:21 | XMS REPORT ---
:1975 Author Organization e[employer]Works Care Team Providers Name Role Phone Jennifer Pope Provider Role Unavailable Allergies No Known Allergies Problems Problem Type Condition Code Onset Dates Condition Statu s Problem Radiculopathy M54.10 Active Problem Alcoholic fatty liver K70.0 Active Problem Nicotine dependence F17.200 Active Problem COPD with exacerbation J44.1 Activ e Problem Chest pain on breathing R07.1 Acti ve Problem Anxiety F41.9 Active Problem Chronic hepatitis C without hepatic B18.2 Active coma Problem Pulmonary emphysema, unspecified J43.9 Active emphysema type Problem Depression with anxiety F41.8 Acti ve Problem Alcohol withdrawal syndrome without F10.230 Active complication Problem GERD (gastroesophageal reflux K21.9 Active disease) Problem Knee pain M25.569 Active Problem Back pain M54.9 Active Problem Wheezing R06.2 Active Problem IBS (irritable bowel syndrome) K58.9 Active Problem Ankle pain M25.579 Active Problem COPD (chronic obstructive pulmonary J44.9 Active disease) Problem Chronic pain syndrome G89.4 Active Problem Hypertension I10 Active Medications Medication Code System Code Instructions Start End Date Status Dos age Date Omeprazole [facility] 15611333830 40 MG Orally Sep 24, Active 1 ca psule Once a day 2019 30 minutes before morning meal Results No Known Results Summary Purpose eClinicalWorks Submission
--- OUTSIDE RECORDS SUMMARY | 2020-01-09 16:21 | XMS REPORT ---
:1975 Author Organization e[employer]Works Care Team Providers Name Role Phone Jennifer Pope Provider Role Unavailable Allergies, Adverse Reactions, Alerts Substance Reaction Event Type Lisinopril severe fatigue Drug Allergy Problems Problem Type Condition Code Onset Dates Condition Statu s Problem Radiculopathy M54.10 Active Problem Alcoholic fatty liver K70.0 Active Problem Nicotine dependence F17.200 Active Problem COPD with exacerbation J44.1 Activ e Assessment Chest pain on breathing R07.1 Acti ve Problem Chest pain on breathing R07.1 Acti ve Assessment COPD with exacerbation J44.1 Activ e Assessment Wheezing R06.2 Active Problem Anxiety F41.9 [...] End Status Dosage System Date Date Esomeprazole [facility] 85636739278 40 Active TAKE 1 Magnesium CAPSULE BY MOUTH EVERY DAY BusPIRone HCl ND 78861464890 5 MG Orally February Active 1 tablet Twice a day 2018 Nicotine [facility] 84110721611 21 MG/24HR Active 1 patch to Transdermal skin Once a day Viberzi ND 08073808870 75 MG Orally Active 1 table t with Twice a day food Symbicort ND 40801697131 160-4.5 Sept Active inhale 2 MCG/ACT 17, puffs by Inhalation 2018 mouth twice Twice a day daily HydrOXYzine HCl [facility] 93268030085 25 MG Orally Apr 15, Active 1 tablet as every 8 hrs 2018 needed Escitalopram ND 32403830721 10 MG Orally February Active 1 tablet Oxalate Once a day 2018 Albuterol Sulfate [facility] 20668246040 (2.5 MG/3ML) Activ e 3 ml as 0.083% needed Inhalation Three times a day PredniSONE ND 24517232057 10 MG Orally 2 Apr 15Mar Active as directed tabs once a 2018, day X 5 days 2018 then 1 tab daily X 5 days Proctofoam HC ND 77414216970 1-1 % Rectal Active 1 application Four times a as needed day Losartan Potassium ND 45768700164 50 Orally Once Ac tive take 1 tablet a day by mouth every day Carvedilol [facility] 53754005156 25 MG Active 1 TAB(S) 2 TIMES A DAY ORALLY Cyclobenzaprine ND 13691736612 5 MG Orally Active 1 tablet as HCl Three times a needed day Results No Known Results Summary Purpose eClinicalWorks Submission
[2020-01-09] MEDS ORDERED: NA CHLORIDE 0.9% 1,000 ML ONE ×2 (17:15→20:25)
[2020-01-09] MEDS ORDERED: ONDANSETRON 4 MG/2 ML VIAL ONE (17:15)
[2020-01-09] MEDS ORDERED: FAMOTIDINE 20 MG/2 ML VIAL IV ONE (17:15)
[2020-01-09] MEDS ORDERED: MORPHINE 4 MG/ML SYR ONE (17:15)
[2020-01-09 17:35] LABS: Absolute Lymphocytes (CBC) 2.5 K/uL (0.7-4.9); Basophils % 0.5 % (0-1.3); Hematocrit 45.5 % (39.6-49.0); Lymphocytes % 44.3 % (15.3-44.8); MPV 7.7 fL (7.6-11.3); RBC Red Blood Cell Count 4.74 M/uL (4.33-5.43)
[2020-01-09 17:48] LABS: ALT/SGPT 55 U/L (12-78); AST/SGOT 72 U/L (15-37); Alkaline Phosphatase 83 U/L (45-117); BUN Blood Urea Nitrogen 9 mg/dL (7-18); Bicarbonate 24 mmol/L (21-32); Bilirubin Direct 0.5 mg/dL (0-0.2); Bilirubin Total 1.5 mg/dL (0.2-1.0); Glucose Level 98 mg/dL (74-106); Lipase 230 U/L (73-393); Protein, Total 8.6 g/dL (6.4-8.2); Sodium Level 137 mmol/L (136-145)
[2020-01-09 18:27] LABS: Urine Blood NEGATIVE (NEG); Urine Glucose NEGATIVE (NEG); Urine Protein 1+ (NEG); Urine pH 6.5 (5.0-7.0)
[2020-01-09 18:28] LABS: Urine Bacteria <20 /HPF (NONE SEEN); Urine RBC <5 /HPF (NONE SEEN)
[2020-01-09 18:29] LABS: Blood Morphology Comment NOT SEEN (NOT SEEN); Platelet Estimate DECR; Urine White Blood Cell Casts OK
[2020-01-09 18:29] LABS: Urine Culture Reflex Order NOT NEEDED; Urine Mucus SLIGHT /HPF (NONE SEEN)
--- NOTE | 2020-01-09 18:42 | RAD REPORT ---
EXAM DESCRIPTION: US - Abdomen Exam Limited - 01/09/2020 5:52 pm CLINICAL HISTORY: epigastric/RUQ pain COMPARISON: Abdomen Exam Complete dated 11/17/2019 FINDINGS: The gallbladder demonstrates no gallstones. No pericholecystic fluid or gallbladder wall t hickening. The common bile duct is normal measuring 4 mm. The liver demonstrates mild fatty liver. IMPRESSION: Negative gallbladder/ biliary tree findings. Mild fatty liver.
--- NOTE | 2020-01-09 19:14 | RAD REPORT ---
EXAM DESCRIPTION: CTAbdomen Pelvis W Contrast - 01/09/2020 7:05 pm CLINICAL HISTORY: Abdominal pain. ABD PAIN COMPARISON: Abdomen Pelvis W Contrast dated 10/09/2016; CT ABD PELVIS W CONTRAST dated 09/24/2014; A bdomen Exam Limited dated 01/09/2020 TECHNIQUE: Biphasic CT imaging of the abdomen and pelvis was performed with 100 ml non-ionic IV cont rast. All CT scans are performed using dose optimization technique as appropriate and may include automated exposure control or mA/KV adjustment according to patient size. FINDINGS: The lung bases are clear. Prominent fatty liver is seen with nodular contour most compatible with liver cirrhosis. Low-density lesion is seen in the inferior right lobe liver measuring 15 mm, likely a cyst. Tiny calcification in the gallbladder seen which may be a small gallstone. The spleen, pancreas, adrenal glands and kidney s are within normal limits. No bowel obstruction, free air, free fluid or abscess. Sigmoid diverticulosis coli without diverticul itis. The appendix is normal. No evidence of significant lymphadenopathy. No suspicious bony findings. IMPRESSION: Advanced fatty liver. Nodular contour of the liver parenchyma suggesting early findings of cirrhosis. Cholelithiasis
[2020-01-09] MEDS ORDERED: MAGNE/ALUM HYDROXD 30 ML UCUP ONE (19:43)
[2020-01-09] MEDS ORDERED: DICYCLOMINE HCL 10 MG CAP ONE (19:43)
[2020-01-09] MEDS ORDERED: LIDOCAINE VISCOUS 2% SOLN 15 ML UDC ONE (19:43)
[2020-01-09] MEDS ORDERED: MORPHINE 2 MG/ML SYR ONE (20:19)
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
[2020-01-09] MEDS ORDERED: LORazepam 2 MG/ML VIAL ONE (21:10)
[2020-01-09] MEDS ORDERED: ALBUTEROL 2.5 MG/3 ML NEB SOL ONE (21:14)
[2020-01-09] MEDS ORDERED: IPRATROPIUM BROM 0.5MG/2.5ML ONE (21:14)
[2020-01-09 21:46] VITALS: TEMP 98; O2SAT 99
[2020-01-09 21:49] VITALS: BP 115/70
== END 2020-01-09 21:27 | disposition home or self-care (01) ==
LOC: ER 16:18
DX: K80.20 Calculus of gallbladder without cholecystitis without obstruction (principal); I10 Essential (primary) hypertension; J44.9 Chronic obstructive pulmonary disease, unspecified; F90.9 Attention-deficit hyperactivity disorder, unspecified type; F17.210 Nicotine dependence, cigarettes, uncomplicated
CPT/HCPCS: 96361; 85025; 80048; 36415; 80076; 83690; 74177; 76705; 96375; 96374; 99284; Q9967; J2270; J7030 ×2; J2405; 81003; 81015

== ENCOUNTER 2020-06-02 03:53 | Observation (INO) | payer OTHER ==
[2020-06-02] MEDS ORDERED: NA CHLORIDE 0.9% 1,000 ML ONE ×3 (04:40→07:25)
[2020-06-02] MEDS ORDERED: ONDANSETRON 4 MG/2 ML VIAL ONE ×2 (04:40→12:24)
[2020-06-02] MEDS ORDERED: MORPHINE 4 MG/ML SYR ONE ×2 (04:40→07:24)
[2020-06-02 04:57] LABS: Absolute Lymphocytes (CBC) 2.2 K/uL (0.7-4.9); Basophils % 0.4 % (0-1.3); Hematocrit 44.3 % (39.6-49.0); Lymphocytes % 38.8 % (15.3-44.8); MPV 8.2 fL (7.6-11.3); RBC Red Blood Cell Count 4.43 M/uL (4.33-5.43)
[2020-06-02 05:09] LABS: ALT/SGPT 50 U/L (12-78); AST/SGOT 104 U/L (15-37); Albumin 3.7 g/dL (3.4-5.0); Alkaline Phosphatase 93 U/L (45-117); BUN Blood Urea Nitrogen 4 mg/dL (7-18); Bicarbonate 29 mmol/L (21-32); Bilirubin Direct 0.4 mg/dL (0-0.2); Bilirubin Total 0.9 mg/dL (0.2-1.0); Glucose Level 86 mg/dL (74-106); Lipase 599 U/L (73-393); Potassium 3.6 mmol/L (3.5-5.1); Protein, Total 8.2 g/dL (6.4-8.2); Sodium Level 142 mmol/L (136-145)
[2020-06-02] MEDS ORDERED: MEPERIDINE HCL 50 MG/ML ONE (05:32)
--- NOTE | 2020-06-02 07:15 | EDPHYS ---
Physician Documentation [facility] Name: Sung Brown Jr Age: 44 yrs Sex: Male : 1975 Arrival Date: 06/02/2020 Time: 03:54 Bed 8 Private MD: ED Physician Oren Win HPI: 06/02 04:28 This 44 yrs old Male presents to ER via Ambulatory with complaints of Side pkl Pain. 04:28 The patient presents with abdominal pain in the right upper quadrant. Onset: The pkl symptoms/episode began/occurred just prior to arrival, 6 hour(s) ago. The symptoms radiate to right back. Associated signs and symptoms: Pertinent positives: nausea and vomiting. Patient had similar episode in December 2019. CT shows small gallstones. US gallbladder shows no gallstones. Seen by Dr. Gomez for follow up. Ordered MRI for evaluation. Patient unable to tolerate MRI due to anxiety. Historical: - Allergies: 04:15 NKDA; rv - PMHx: 04:15 ADD/ADHD; COPD; Hepatitis; Hypertension; WPW; rv - PSHx: 04:15 BACK SURGERY; rv - Immunization history:: Adult Immunizations up to date, Flu vaccine is up to date. - Social history:: Smoking status: Patient reports the use of cigarette tobacco products, smokes one pack cigarettes per day. ROS: 04:28 Eyes: Negative for injury, pain, redness, and discharge, ENT: Negative for injury, pkl pain, and discharge, Neck: Negative for injury, pain, and swelling, Cardiovascular: Negative for chest pain, palpitations, and edema, Respiratory: Negative for shortness of breath, cough, wheezing, and pleuritic chest pain. 04:28 Abdomen/GI: Positive for abdominal pain, nausea and vomiting, of the right upper quadrant. 04:28 Back: Positive for pain at rest, of the right back. 04:28 : Negative for urinary symptoms. 04:28 MS/extremity: Negative for acute changes. 04:28 Skin: Negative for rash. 04:28 Neuro: Negative for altered mental status, loss of consciousness. Exam: 04:28 Head/Face: Normocephalic, atraumatic. Eyes: Pupils equal round and reactive to light, pkl extra-ocular motions intact. Lids and lashes normal. Conjunctiva and sclera are non-icteric and not injected. Cornea within normal limits. Periorbital areas with no swelling, redness, or edema. ENT: Nares patent. No nasal discharge, no septal abnormalities noted. Tympanic membranes are normal and external auditory canals are clear. Oropharynx with no redness, swelling, or masses, exudates, or evidence of obstruction, uvula midline. Mucous membranes moist. Neck: Trachea midline, no thyromegaly or masses palpated, and no cervical lymphadenopathy. Supple, full range of motion without nuchal rigidity, or vertebral point tenderness. No Meningismus. Chest/axilla: Normal chest wall appearance and motion. Nontender with no deformity. No lesions are appreciated. Cardiovascular: Regular rate and rhythm with a normal S1 and S2. No gallops, murmurs, or rubs. Normal PMI, no JVD. No pulse deficits. Respiratory: Lungs have equal breath sounds bilaterally, clear to auscultation and percussion. No rales, rhonchi or wheezes noted. No increased work of breathing, no retractions or nasal flaring. 04:28 Abdomen/GI: Bowel sounds: normal, Palpation: soft, mild abdominal tenderness, in the right upper quadrant. 04:28 Back: pain, that is moderate, of the right back. 04:28 : Exam negative for acute changes. 04:28 Musculoskeletal/extremity: Exam is negative for acute changes. 04:28 Skin: Exam negative for rash. 04:28 Neuro: Orientation: is normal, Mentation: is normal, Cranial nerves: grossly normal, Motor: is normal. Vital Signs: 04:12 BP 155 / 109; Pulse 91; Resp 18; Temp 98.2; Pulse Ox 96% ; Weight 113.4 kg; Height 5 rv ft. 10 in. (177.80 cm); Pain 10/10; 05:16 BP 137 / 93; Pulse 78; Resp 17; Pulse Ox 95% on R/A; rv 06:15 BP 125 / 99; Pulse 78; Resp 18; Pulse Ox 95% on R/A; rv 07:00 BP 149 / 81; Pulse 87; Resp 16; Pulse Ox 98% ; bp 08:00 BP 132 / 78; Pulse 76; Resp 16; Pulse Ox 93% ; bp 09:00 BP 137 / 80; Pulse 75; Resp 17; Temp 98.2; Pulse Ox 95% ; bp 04:12 Body Mass Index 35.87 (113.40 kg, 177.80 cm) rv MDM: 04:14 Patient medically screened. pkl 05:20 Data reviewed: vital signs, nurses notes, lab test result(s). pkl 07:07 ED course: Talked to Jourdan Sánchez at [facility] (. Dr. Gresham ) Want surgeon to accept transfer and pkl she will consult.. 06/02 04:21 Order name: Basic Metabolic Panel; Complete Time: 05:20 pkl 06/02 04:21 Order name: CBC with Diff; Complete Time: 05:07 pkl 06/02 04:21 Order name: Hepatic Function; Complete Time: 05:20 pkl 06/02 04:21 Order name: Lipase; Complete Time: 05:20 pkl 06/02 06:44 Order name: COVID-19 rv 06/02 07:28 Order name: Basic Metabolic Panel EDMS 06/02 05:21 Order name: CT Abd/Pelvis - IV Contrast Only pkl 06/02 07:28 Order name: Basic Metabolic Panel EDMS 06/02 07:28 Order name: CBC with Automated Diff EDMS 06/02 07:28 Order name: CBC with Automated Diff EDMS 06/02 07:28 Order name: Lipase EDMS 06/02 07:28 Order name: Lipase EDMS 06/02 07:28 Order name: Liver (Hepatic) Function EDMS 06/02 07:28 Order name: Liver (Hepatic) Function EDMS 06/02 04:21 Order name: IV Saline Lock; Complete Time: 04:38 pkl 06/02 04:21 Order name: Labs collected and sent; Complete Time: 04:38 pkl 06/02 07:18 Order name: EKG; Complete Time: 07:19 pkl 06/02 07:18 Order name: XRAY CXR (1 view) pkl 06/02 07:28 Order name: NPO EDMS 06/02 08:17 Order name: RAD EDMS Administered Medications: 04:37 Drug: NS 0.9% 1000 ml Route: IV; Rate: 1000 ml; Site: right forearm; rv 09:28 Follow up: IV Status: Completed infusion; IV Intake: 1000ml bp 04:37 Drug: morphine 4 mg {Note: RASS 0.} Route: IVP; Site: right forearm; rv 05:16 Follow up: Response: No adverse reaction; Pain is unchanged, physician notified rv 04:37 Drug: Zofran (Ondansetron) 4 mg Route: IVP; Site: right forearm; rv 05:16 Follow up: Response: No adverse reaction rv 05:27 Drug: Demerol 50 mg {Note: rass 0.} Route: IVP; Site: right forearm; rv 06:39 Follow up: Response: No adverse reaction rv 06:39 Follow up: Response: RASS: Drowsy (-1) rv 06:39 Drug: NS 0.9% 500 ml Route: IV; Rate: bolus; Site: right forearm; rv 09:26 Follow up: IV Status: Completed infusion; IV Intake: 500ml bp 07:10 Drug: NS 0.9% 1000 ml Route: IV; Rate: 125 ml/hr; Site: right forearm; bp 09:26 Follow up: IV Status: Infusion continued upon admission bp 07:10 Drug: Zosyn 3.375 grams Route: IVPB; Infused Over: 60 mins; Site: right forearm; bp 09:27 Follow up: IV Status: Completed infusion; IV Intake: 100ml bp 07:10 Drug: morphine 4 mg Route: IVP; Site: right forearm; bp 09:27 Follow up: Response: Pain is decreased bp Disposition: 06/02/20 07:15 Hospitalization ordered by Chris Little for Inpatient Admission. Preliminary diagnosis is Right upper quadrant pain. Cholelithiasis. Elevated liver functions. - Bed requested for Telemetry/MedSurg (Inpatient). - Status is Inpatient Admission. iw - Condition is Stable. - Problem is new. - Symptoms are unchanged. Signatures: Dispatcher [employer] Joelle Diehl Pin, MD MD pkl Lesli Sears RN RN iw Anant Huerta, RN RN bp Kris Morrison, RN RN rv Corrections: (The following items were deleted from the chart) 09:03 07:15 Hospitalization Ordered by Chris Little MD for Inpatient Admission. Preliminary bd diagnosis is Right upper quadrant pain. Cholelithiasis. Elevated liver functions. Bed requested for Telemetry/MedSurg (Inpatient). Status is Inpatient Admission. Condition is Stable. Problem is new. Symptoms are unchanged. pkl 10:09 09:03 06/02/2020 07:15 Hospitalization Ordered by Chris Little MD for Inpatient iw Admission. Preliminary diagnosis is Right upper quadrant pain. Cholelithiasis. Elevated liver functions. Bed requested for Telemetry/MedSurg (Inpatient). Status is Inpatient Admission. Condition is Stable. Problem is new. Symptoms are unchanged. bd
--- NOTE | 2020-06-02 07:15 | ER ---
Nurse's Notes [facility] Name: Sung Brown Jr Age: 44 yrs Sex: Male : 1975 Arrival Date: 06/02/2020 Time: 03:54 Bed 8 Private MD: Diagnosis: Right upper quadrant pain. Cholelithiasis. Elevated liver functions Presentation: 06/02 04:12 Chief complaint: Patient states: DIAGNOSED WITH GALL STONES 4 MONTHS AGO. SUPPOSED TO rv GET SURGERY, MRI WAS REQUIRED PRIOR. UNABLE TO TOLERATE MRI, ANXIETY. PAIN WOKE THE PATIENT TONIGHT, 10/10, RIGHT SIDE RADIATING TO THE BACK. WITH NAUSEA AND VOMITING. Coronavirus screen: Client denies travel out of the [place] in the last 14 days. cough unrelated to allergies, vomiting. Client presents with at least one sign or symptom that may indicate coronavirus-19. Standard/surgical mask placed on the client. Provider contacted for isolation considerations. Ebola Screen: No symptoms or risks identified at this time. Initial Sepsis Screen: Does the patient meet any 2 criteria? No. Patient's initial sepsis screen is negative. Does the patient have a suspected source of infection? No. Patient's initial sepsis screen is negative. Risk Assessment: Do you want to hurt yourself or someone else? Patient reports no desire to harm self or others. Onset of symptoms was June 02, 2020 at 03:00. 04:12 Method Of Arrival: Ambulatory rv 04:12 Acuity: CINTIA 3 rv Triage Assessment: 04:15 General: Appears uncomfortable, Behavior is calm, cooperative. Pain: Complains of pain rv in right upper quadrant Pain radiates to right mid back Pain currently is 10 out of 10 on a pain scale. Quality of pain is described as aching. EENT: No signs and/or symptoms were reported regarding the EENT system. Neuro: Level of Consciousness is awake, alert, obeys commands, Oriented to person, place, time, situation. Cardiovascular: Patient's skin is warm and dry. Respiratory: Airway is patent. GI: Abdomen is round distended, Reports nausea, vomiting. Derm: Skin is intact. Musculoskeletal:. Historical: - Allergies: 04:15 NKDA; rv - PMHx: 04:15 ADD/ADHD; COPD; Hepatitis; Hypertension; WPW; rv - PSHx: 04:15 BACK SURGERY; rv - Immunization history:: Adult Immunizations up to date, Flu vaccine is up to date. - Social history:: Smoking status: Patient reports the use of cigarette tobacco products, smokes one pack cigarettes per day. Screenin:16 Abuse screen: Denies threats or abuse. Denies injuries from another. Nutritional rv screening: No deficits noted. Tuberculosis screening: No symptoms or risk factors identified. Fall Risk None identified. Assessment: 05:26 Reassessment: pain not changed. vital signs checked. positioned to comfort. referred to rv Dr Urbano. medication given as ordered. for CT scan. 06:39 Reassessment: DR URBANO EXPLAINED THE CT SCAN REPORT AND THE PLAN OF CARE. PATIENT rv VERBALIZED UNDERSTANDING AND AGREED TO THE PLAN. PATIENT IS FOR TRANSFER TO [facility], FOR ERCP. 07:00 Reassessment: RECD REPORT FROM ALYSSA CELIS. 44YO WM P/W FLANK PAIN, NOW DX WITH GALLSTONE bp PANCREATITIS. ADMIT PENDING FOR ERCP. 07:15 Reassessment: ADMIT INITIATED. PT NPO. bp 09:24 Reassessment: ADMIT COMPLETE, BED 405 ASSIGNED. TRANSPORT PENDING. bp Vital Signs: 04:12 BP 155 / 109; Pulse 91; Resp 18; Temp 98.2; Pulse Ox 96% ; Weight 113.4 kg; Height 5 rv ft. 10 in. (177.80 cm); Pain 10/10; 05:16 BP 137 / 93; Pulse 78; Resp 17; Pulse Ox 95% on R/A; rv 06:15 BP 125 / 99; Pulse 78; Resp 18; Pulse Ox 95% on R/A; rv 07:00 BP 149 / 81; Pulse 87; Resp 16; Pulse Ox 98% ; bp 08:00 BP 132 / 78; Pulse 76; Resp 16; Pulse Ox 93% ; bp 09:00 BP 137 / 80; Pulse 75; Resp 17; Temp 98.2; Pulse Ox 95% ; bp 04:12 Body Mass Index 35.87 (113.40 kg, 177.80 cm) rv ED Course: 03:54 Patient arrived in ED. cl3 04:04 Kris Morrison, VIMAL is Primary Nurse. rv 04:14 Triage completed. rv 04:14 Oren Urbano MD is Attending Physician. pkl 04:16 Arm band placed on right wrist. Patient placed in the treatment room, on a stretcher, rv Patient notified of wait time. 04:16 Patient has correct armband on for positive identification. Pulse ox on. NIBP on. rv 04:38 Initial lab(s) drawn, by me, sent to lab. Inserted saline lock: 20 gauge in right rv forearm, using aseptic technique. Blood collected. 05:53 CT Abd/Pelvis - IV Contrast Only In Process Unspecified. EDMS 06:[address] [facility] spoke with Kathryn Gallego. ar5 06:49 done with GI . ar5 07:03 Primary Nurse role handed off by Kris Morrison, RN bp 07:03 Anant Huerta, RN is Primary Nurse. bp 07:[address] Urbano. bd 07:12 Chris Little MD is Hospitalizing Provider. pkl 09:25 No provider procedures requiring assistance completed. Patient admitted, IV remains in bp place. Administered Medications: 04:37 Drug: NS 0.9% 1000 ml Route: IV; Rate: 1000 ml; Site: right forearm; rv 09:28 Follow up: IV Status: Completed infusion; IV Intake: 1000ml bp 04:37 Drug: morphine 4 mg {Note: RASS 0.} Route: IVP; Site: right forearm; rv 05:16 Follow up: Response: No adverse reaction; Pain is unchanged, physician notified rv 04:37 Drug: Zofran (Ondansetron) 4 mg Route: IVP; Site: right forearm; rv 05:16 Follow up: Response: No adverse reaction rv 05:27 Drug: Demerol 50 mg {Note: rass 0.} Route: IVP; Site: right forearm; rv 06:39 Follow up: Response: No adverse reaction rv 06:39 Follow up: Response: RASS: Drowsy (-1) rv 06:39 Drug: NS 0.9% 500 ml Route: IV; Rate: bolus; Site: right forearm; rv 09:26 Follow up: IV Status: Completed infusion; IV Intake: 500ml bp 07:10 Drug: NS 0.9% 1000 ml Route: IV; Rate: 125 ml/hr; Site: right forearm; bp 09:26 Follow up: IV Status: Infusion continued upon admission bp 07:10 Drug: Zosyn 3.375 grams Route: IVPB; Infused Over: 60 mins; Site: right forearm; bp 09:27 Follow up: IV Status: Completed infusion; IV Intake: 100ml bp 07:10 Drug: morphine 4 mg Route: IVP; Site: right forearm; bp 09:27 Follow up: Response: Pain is decreased bp Intake: 09:26 IV: 500ml; Total: 500ml. bp 09:27 IV: 100ml; Total: 600ml. bp 09:28 IV: 1000ml; Total: 1600ml. bp Outcome: 07:15 Decision to Hospitalize by Provider. pkfaith 09:50 Admitted to Med/surg accompanied by tech, via wheelchair, room 405, with chart, Report bp called to JASON CELIS 09:50 Condition: stable 09:50 Instructed on the need for admit. 10:09 Patient left the ED. iw Signatures: Dispatcher [employer] EDMS Joelle Cyr Pin, MD MD pkl Williams, Irene, RN RN iw Peltier, Brian, RN RN bp Vicente, Ronaldo, RN RN rv Robles, Autumn arKarel De Los Santos cl3
[2020-06-02] MEDS ORDERED: ONDANSETRON 4 MG/2 ML VIAL IV PRN ×2 (07:23→16:56)
[2020-06-02] MEDS ORDERED: MORPHINE 4 MG/ML SYR IV PRN ×2 (07:23→23:27)
[2020-06-02] MEDS ORDERED: PIPER/TAZO/NS 3.375gm 3.375 GM/100 ML BAG ONE (07:25)
[2020-06-02] MEDS ORDERED: D5 0.45 NS 1,000 ML IV SCH ×2 (08:00→17:00)
--- NOTE | 2020-06-02 08:16 | RAD REPORT ---
EXAM DESCRIPTION: [facility] Single View06/02/2020 8:11 am CLINICAL HISTORY: Abdominal pain/preop cholecystectomy COMPARISON: 2018 FINDINGS: The lungs appear clear of acute infiltrate. The heart is normal size IMPRESSION: No acute abnormalities displayed
[2020-06-02 10:33] VITALS: BMI 35.9
--- NOTE | 2020-06-02 10:37 | RAD REPORT ---
EXAM DESCRIPTION: CT - Abdomen Pelvis W Contrast - 06/02/2020 7:06 am CLINICAL HISTORY: The patient is 44 years old and is Male; ABD PAIN TECHNIQUE: Axial computed tomography images of the abdomen and pelvis with intravenous contrast. S agittal and coronal reformatted images were created and reviewed. This CT exam was performed using one or more of the following dose reduction techniques: automated exposure control, adjustment of t he mA and/or kV according to patient size, and/or use of iterative reconstruction technique. COMPARISON: CT abdomen pelvis with contrast January 09, 2020. FINDINGS: Lung bases: Unremarkable. No mass. No consolidation. ABDOMEN: Liver: Fatty liver. Nodular liver suggesting hepatic cirrhosis. 1.5 cm hepatic cyst, inferior right hepatic lobe. No follow-up imaging recommended. Gallbladder and bile ducts: Distended gallbladder with a few tiny calcified stones. No CT eviden ce of cholecystitis. No ductal dilation. Pancreas: No findings to suggest acute pancreatitis. No mass visualized. No ductal dilation. Spleen: Borderline splenomegaly. Adrenals: Unremarkable. No mass. Kidneys and ureters: Unremarkable. No solid mass. No hydronephrosis. Stomach and bowel: No bowel dilatation or obstruction. No bowel wall thickening. PELVIS: Appendix: The visualized appendix is normal. No pericecal inflammation to suggest acute appendic itis. Bladder: Unremarkable. No mass. Reproductive: Mild prostate gland enlargement. ABDOMEN and PELVIS: Intraperitoneal space: Unremarkable. No free air. No significant fluid collection. Bones/joints: Old T12 Schmorl's node/focal endplate compression. No retropulsion. No dislocation. Soft tissues: Unremarkable. Vasculature: Unremarkable. No abdominal aortic aneurysm. Lymph nodes: No pathologically enlarged lymph nodes. IMPRESSION: 1. Fatty liver. Nodular liver suggesting hepatic cirrhosis. 2. Distended gallbladder with a few tiny calcified stones. No CT evidence of cholecystitis. 3. Borderline splenomegaly. 4. Normal appendix. 5. Additional non-emergent findings as above. Electronically signed by: Kayla Dean MD 06/02/2020 6:09 AM CDT Due to temporary technical issues with the PACS/Fluency reporting system, reports are being signed by the in house radiologist without review as a courtesy to ensure prompt reporting. The interpreting r adiologist is fully responsible for the content of the report.
[2020-06-02] MEDS ORDERED: PIPER/TAZO/NS 3.375gm 3.375 GM/100 ML BAG IVPB SCH ×2 (12:00)
[2020-06-02] MEDS ORDERED: propofoL 200 MG/20 ML VIAL IV ONE (12:19)
[2020-06-02] MEDS ORDERED: MIDAZOLAM HCL 2 MG/2 ML INJ ONE (12:20)
[2020-06-02] MEDS ORDERED: FENTANYL CITR 100 MCG/2 ML ONE (12:20)
[2020-06-02] MEDS ORDERED: KETOROLAC 30 MG/ML INJ ONE (12:24)
[2020-06-02] MEDS ORDERED: LIDOCAINE 2% MPF 5 ML VIAL ONE (12:24)
[2020-06-02] MEDS ORDERED: dexAMETHasone 10 MG/ML VIAL ONE (12:24)
[2020-06-02] MEDS ORDERED: ROCURONIUM 50 MG/5 ML VIAL IV ONE (12:24)
[2020-06-02] MEDS ORDERED: SUCCINYLCHOLINE 20 MG/ML (10 ML) IV ONE (12:38)
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
[2020-06-02] MEDS ORDERED: Ringers Lactate 1,000 ML IV ONE ×2 (12:57→15:05)
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
[2020-06-02] MEDS ORDERED: HYDROMORPHONE HCL 1 MG/ML INJ ONE ×2 (13:28→16:42)
[2020-06-02] MEDS ORDERED: NS 0.9% VIAL 10 ML ONE (14:59)
[2020-06-02] MEDS ORDERED: GLYCOPYRROLATE 0.2 MG/ML SYR ONE (15:44)
--- NOTE | 2020-06-02 15:47 | P.OP ---
Preoperative diagnosis: Cholecystitis with cholelithiasis, possible choledocholithiasis Postoperative diagnosis: The same with cirrhosis of the liver Primary procedure: Laparoscopic cholecystectomy Secondary procedure: Attempted cholangiogram Other procedure(s): Percutaneous liver biopsy Anesthesia: General Estimated blood loss: Less than 50 cc Specimen: 1 gallbladder and contents Findings: Markedly cirrhotic liver, chronic dilated gallbladder Operative Technique: The patient brought to the operating room and placed supine on the table. After the induction of adequate general endotracheal anesthesia, the area of the abdomen was prepped with a DuraPrep solution, and he was draped in usual aseptic manner. A subumbilical incision was made. This brought down through the skin and subcutaneous tissue. The Visiport was now used to enter the peritoneal cavity and created pneumoperitoneum to approximately 12 mm of mercury. The patient's was then placed in reverse Trendelenburg and rolled to the left. A 5 mm trocars placed in the upper midline. 2 other 5 mm trocars were placed on the right lateral side of the abdomen. We were able to visualize the peritoneal cavity. We could see some adhesions laying over the gallbladder up on the anterior surface of the liver. These were gently brushed down. This revealed all markedly cirrhotic liver rib in both the right and left lobes. The gallbladder was noted to be distended. It was very thin and friable. There was evidence of extravascular blood flow on its surface. The contents of the gallbladder were gently aspirated using an aspirating needle. We were now able to place a grasper on the fundus of the gallbladder. Gentle dissection of these dilated veins was begun. These were mostly controlled using electro cautery. The largest ones were controlled using clips. We were able to dissect down towards the Marjorie's pouch. At this point the tissue was markedly thinned. With we managed to make a hole in the gallbladder itself. This actually allowed us to identify the anatomy somewhat easier. We attempted to pass a cholangiocatheter down through the cystic duct from this hole in the gallbladder but were unsuccessful. At this point I canceled the cholangiogram. I felt that it was necessary to avoid any potential trauma to the cystic duct so that we could place 2 secure clips on the anatomic structure and transected cleanly, and an effort to ensure no postoperative leaks. That is what we did. The gallbladder was now detached. Gentle dissection showed us the cystic artery which was contained and divided in the usual manner. The gallbladder was now dissected free from the liver bed. This was a slow tedious dissection ensuring we had the adequate hemostasis as we went. Just prior to detaching the gallbladder from the liver bed, a percutaneous needle biopsy of the right lobe of the liver was done. Having determined we had a good specimen, attention was turned back towards the right lobe of the liver. Bleeding was controlled using electro cautery. The gallbladder was now fully detached from the liver. It was placed into an Endo pouch and brought out through the umbilical trocar incision. Attention was now turned back towards the liver itself. After placing the patient flat on the OR table the area was irrigated with a copious amount of saline solution. The irrigating fluid was aspirated from the peritoneal cavity. The liver bed was inspected to ensure we had adequate hemostasis. Attention was turned back towards the umbilicus. This was approximated using the Endo Closean absorbable suture. The pneumoperitoneum peritoneum was now collapsed, the trocars removed, and lexus applied to the skin At the end of procedure he was in a stable sent under room. Needle sponge instrument count were correct. No drains were placed. itself. Complications: None Transferred to: Recovery Room Condition: Good
[2020-06-02] MEDS ORDERED: NEOSTIGMINE 1 MG/ML -5 ML ONE (15:48)
[2020-06-02] MEDS ORDERED: PROMETHAZINE INJ 25 MG/ML AMP ONE (16:41)
[2020-06-02] MEDS ORDERED: MEPERIDINE HCL 25 MG/ML SYR IVP PRN (16:56)
[2020-06-02] MEDS: PIPER/TAZO/NS 3.375gm 3.375 GM/100 ML BAG IVPB SCH (17:18)
--- NOTE | 2020-06-02 17:31 | RAD REPORT ---
EXAM DESCRIPTION: RAD - Cholangiogram Oper-Xray Or - 06/02/2020 4:19 pm CLINICAL HISTORY: LAP RAMON WITH IOC COMPARISON: Abdomen Pelvis W Contrast dated 06/02/2020 FINDINGS: Two limited fluoroscopic images are submitted. A short segment of the bile duct is visuali zed. Total fluoro time: 0.1 minutes.
[2020-06-02] MEDS ORDERED: LORAZEPAM 1 MG TABLET PO PRN (17:59)
[2020-06-02] MEDS ORDERED: MEPERIDINE HCL 50 MG/ML IVP PRN (18:00)
[2020-06-02] MEDS ORDERED: BUDESONIDE IN SCH (18:00)
[2020-06-02] MEDS ORDERED: FORMOTEROL FUMARATE IN SCH (18:00)
[2020-06-02] MEDS ORDERED: ALBUTEROL SULFATE IN SCH (18:00)
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
[2020-06-02] MEDS: D5 0.45 NS 1,000 ML IV SCH (19:23)
[2020-06-02] MEDS ORDERED: FUROSEMIDE 20 MG/ 2ML VIAL IV ONE (19:23)
[2020-06-02] MEDS: GABAPENTIN 300 MG CAP PO SCH ×2 (19:48→19:59)
[2020-06-02] MEDS ORDERED: FUROSEMIDE 20 MG/ 2ML VIAL ONE (19:59)
[2020-06-02 20:07] VITALS: O2SAT 95
[2020-06-02] MEDS: THIAMINE HCL 100 MG TABLET PO SCH (20:53)
[2020-06-02] MEDS ORDERED: LORazepam 2 MG/ML VIAL IV PRN (21:10)
[2020-06-02] MEDS: NICOTINE 21 MG/PAT TD SCH (21:15)
[2020-06-02] MEDS: MULTIVITAMIN TAB PO SCH (21:15)
[2020-06-02] MEDS ORDERED: MULTIVITAMIN TAB PO ONE ×2 (21:26→21:36)
[2020-06-02] MEDS ORDERED: NICOTINE 21 MG/PAT TD ONE (21:27)
[2020-06-02] MEDS: chlordiazePOXIDE HCl 25 MG CAP PO SCH (23:32)
[2020-06-02] MEDS: MORPHINE 4 MG/ML SYR IV PRN (23:32)
[2020-06-03] MEDS: PIPER/TAZO/NS 3.375gm 3.375 GM/100 ML BAG IVPB SCH ×2 (01:30→08:26)
[2020-06-03] MEDS: D5 0.45 NS 1,000 ML IV SCH (01:30)
[2020-06-03 04:02] LABS: Absolute Lymphocytes (CBC) 0.3 K/uL (0.7-4.9); Basophils % 0.1 % (0-1.3); Hematocrit 39.9 % (39.6-49.0); Lymphocytes % 6.8 % (15.3-44.8); MPV 8.4 fL (7.6-11.3); RBC Red Blood Cell Count 4.01 M/uL (4.33-5.43)
[2020-06-03] MEDS: MORPHINE 4 MG/ML SYR IV PRN ×2 (04:21→08:39)
[2020-06-03 04:29] LABS: Albumin 3.2 g/dL (3.4-5.0); Bilirubin Direct 0.6 mg/dL (0-0.2); Bilirubin Total 1.5 mg/dL (0.2-1.0); Potassium 3.8 mmol/L (3.5-5.1); Protein, Total 7.8 g/dL (6.4-8.2)
[2020-06-03 04:40] LABS: Magnesium 1.2 mg/dL (1.8-2.4)
[2020-06-03 05:11] LABS: Blood Morphology Comment NOT SEEN (NOT SEEN); Platelet Estimate DECR
[2020-06-03] MEDS ORDERED: POTASSIUM CL SA 10 MEQ TAB PO ONE (05:29)
[2020-06-03] MEDS ORDERED: Magnesium Sulfate 2gm IVPB 2 G/50 ML BAG IV ONE (05:29)
[2020-06-03] MEDS: chlordiazePOXIDE HCl 25 MG CAP PO SCH ×2 (05:56→11:50)
[2020-06-03] MEDS ORDERED: PANTOPRAZOLE 40MG TABLET PO SCH (07:30)
--- NOTE | 2020-06-03 08:00 | RAD REPORT ---
EXAM DESCRIPTION: RAD - Chest Single View - 06/03/2020 5:28 am CLINICAL HISTORY: pneumonia COMPARISON: June 02 TECHNIQUE: AP portable chest image was obtained 06/03/2020 5:28 am . FINDINGS: Interstitial markings remain prominent. New patchy opacification in the medial right lung base is present. This could be atelectasis or pneumonia. Retrocardiac left base assessment is limited but no gross change identified. Heart and vasculature are normal. No measurable pleural effusion and no pneumothorax. No acute bony abnormality seen. No acute aortic findings suspected. IMPRESSION: New medial right lung base opacification suspicious for mild pneumonia.
[2020-06-03] MEDS: MULTIVITAMIN TAB PO SCH (08:24)
[2020-06-03] MEDS: THIAMINE HCL 100 MG TABLET PO SCH (08:24)
[2020-06-03] MEDS: NICOTINE 21 MG/PAT TD SCH (08:25)
[2020-06-03] MEDS: GABAPENTIN 300 MG CAP PO SCH ×2 (08:25→13:55)
[2020-06-03] MEDS ORDERED: FLUOXETINE 10 MG CAP PO SCH (09:00)
[2020-06-03] MEDS ORDERED: LOSARTAN POTASSIUM 50 MG TABLET PO SCH (09:00)
[2020-06-03] MEDS ORDERED: carvediloL 25 MG TAB PO SCH (09:00)
[2020-06-03] MEDS ORDERED: HOME MED 1 EA UNK (Omeprazole [Prilosec] 40 MG) PO SCH (09:00)
[2020-06-03 12:03] VITALS: BP 126/76; TEMP 97.6
--- OUTSIDE RECORDS SUMMARY | 2020-06-03 17:16 | XMS REPORT ---
:1975 Author Organization [employer] Care Team Providers Name Role Phone Jennifer Pope Provider Role Unavailable Allergies, Adverse Reactions, Alerts Substance Reaction Event Type Lisinopril severe fatigue Drug Allergy Problems Problem Type Condition Code Onset Dates Condition Statu s Problem Hypertension I10 Active Problem COPD (chronic obstructive pulmonary J44.9 Active disease) Problem Anxiety F41.9 Active Problem Depression with anxiety F41.8 Acti ve Problem Alcoholism F10.20 Active Problem GERD (gastroesophageal reflux K21.9 Active disease) Problem Chronic pain syndrome G89.4 Active Problem Alcoholic fatty liver K70.0 Active Problem Nicotine dependence F17.200 Active Assessment Chronic pain syndrome G89.4 Active Assessment Alcoholic fatty liver K70.0 Active Assessment Hypertension I10 Active Assessment GERD (gastroesophageal reflux K21.9 Active disease) Assessment Nicotine dependence F17.200 Active Assessment COPD (chronic obstructive pulmonary J44.9 Active disease) Medications Medication Code Code Instructions Start End Status Dosage System Date Date Albuterol Sulfate [facility] 16350999485 (2.5 MG/3ML) Activ e 3 ml as 0.083% needed Inhalation Three times a day HydrOXYzine HCl ND 01850233088 25 MG Orally Apr 15, Active 1 tablet as every 8 hrs 2019 needed Esomeprazole ND 32293567432 40 Active TAKE 1 Magnesium CAPSULE BY MOUTH EVERY DAY Symbicort [facility] 05952446027 160-4.5 Active inhale 2 MCG/ACT puffs by Inhalation mouth twice Twice a day daily Viberzi ND 97549258349 75 MG Orally Active 1 table t with Twice a day food Proctofoam HC [facility] 28764882242 1-1 % Rectal Active 1 application Four times a as needed day Gabapentin ND 73217241856 300 MG Oral Active TAKE ONE CAPSULE BY MOUTH 3 TIMES A DAY Losartan Potassium ND 63580433324 50 Orally Once Ac tive take 1 tablet a day by mouth every day Losartan Potassium [facility] 72584148224 50 mg Active T DARCIE 1 TABLET BY MOUTH EVERY DAY Ventolin HFA NDC 75501384281 108 (90 Base) Active 2 puffs MCG/ACT inhaled every Inhalation 4-6 hours as every 6 hrs needed Omeprazole ND 42345873445 40 MG Orally Sep 24, Active 1 ca psule 30 Once a day 2019 minutes before morning meal Escitalopram ND 74633275019 10 MG Orally February Active 1 tablet Oxalate Once a day 2018 Chlordiazepoxide ND 79259979526 25 MG Oral Active (Schedule IV HCl Drug) TK 1 C PO TID Nicotine [facility] 59712030600 21 MG/24HR Active 1 patch to Transdermal skin Once a day Carvedilol [facility] 29941770509 25 MG Orally Active 1 ta b(s) 2 Twice a day times a day orally Results No Known Results Summary Purpose [employer] Submission
--- OUTSIDE RECORDS SUMMARY | 2020-06-03 17:16 | XMS REPORT | Continuity of Care Document ---
:[address] [facility] t Address [facility] [place] [address] Care Team Providers Name Role Phone FOUND, NOT Primary Care Physician Unavailable Advance Directives Directive Decision Effective Date Termination Date Comments Sour ce Yes N/A [facility] - [facility] Problems Condition Condition Condition Status Onset Resolution Last Treating Co mments Source Name Details Category Date Date Treatment Clinician Date GERD GERD Diagnosis Active [facility] (gastroeso (gastroeso Krista kes - phageal phageal Memoria reflux reflux l disease) disease) Outpat i ent Clinics Alcoholic Alcoholic Diagnosis Active [facility] fatty fatty [facility] COPD COPD Diagnosis Active [facility] (chronic (chronic [facility] - obstructiv obstructiv Me moria e e l pulmonary pulmonary Outp ati disease) disease) ent Clinics Nicotine Nicotine Diagnosis Active [facility] dependence dependence [facility] Hypertensi Hypertensi Diagnosis Active [facility] Chronic Diagnosis Active [facility] syndrome syndrome [facility] Depression Depression Problem Active [facility] with with [facility] anxiety anxiety [facility] Anxiety Anxiety Problem [facility] Alcoholism Alcoholism Problem Active [facility] Problem Condition [facility] Allergies, Adverse Reactions, Alerts Allergy Allergy Status Severity Reaction(s) Onset Inactive Treating Comm ents Source Name Type Date Date Clinician Lisinopr Adverse Active severe [facility] Reaction fatigue [facility] Social History Social Habit Start Date Stop Date Quantity Comments Source Sex Assigned At [birth year] Male LON [place] 00:00:00 00:00:00 [facility] Smoking Status Start Date Stop Date Source Unknown if ever smoked [facility] Medications Ordered Filled Start Stop Current Ordering Indication Dosage Frequency Signature Comments Components Source Medication Medication Date Date Medication? Clinician (SIG) Name Name Omeprazole Omeprazole Yes Jennifer [address] [facility] 1-29 [place] 30 minutes [facility] - 00:00: before [facility] 00 morning [facility] HydrOXYzine HydrOXYzine Yes Jennifer [address] [facility] HCl HCl 8-20 [place] as needed [facility] - 00:00: Memoria 00 l [facility] Escitalopra Escitalopra Yes Jennifer [address] [facility] m Oxalate m Oxalate 7-15 [place] Luke s - 00:00: [facility] Albuterol Albuterol Yes Jennifer 3 ml as [facility] Sulfate Sulfate [facility] needed [facility] Esomeprazol Esomeprazol Yes Jennifer TAKE [address] [facility] e Magnesium e Magnesium [place] CAPSULE BY [facility] - MOUTH [facility] EVERY DAY l [facility] Symbicort Symbicort Yes Jennifer inhale [address] [facility] [place] puffs by [facility] - mouth [facility] twice l daily [facility] Viberzi Viberzi Yes Jennifer [address] [facility] [place] with food [facility] Proctofoam Proctofoam Yes Jennifer [address] [facility] [place] applicatio [facility] - n as [facility] needed l [facility] Gabapentin Gabapentin Yes Jennifer TAKE ONE [facility] CAPSULE BY [facility] - MOUTH 3 [facility]oria TIMES A l DAY [facility] Losartan Losartan Yes Jennifer TAKE [address] [facility] Potassium Potassium [place] TABLET BY [facility] - MOUTH Memoria EVERY DAY l [facility] Ventolin Ventolin Yes Jennifer [address] HFA HFA [place] inhaled [facility] - every 4-6 [facility] hours [facility] Chlordiazep Chlordiazep Yes Jennifer (Schedule [facility] oxide HCl oxide HCl [facility] IV Drug) [facility] - TK 1 C PO Memoria TID l Outpati ent Clinics Nicotine Nicotine Yes Jennifer [address] [facility] skin [facility] Carvedilol Carvedilol Yes Jennifer 1 tab(s) [address] [facility] [place] times a [facility] - day orally Memoria l Outpati ent Clinics Albuterol No 2 [facility] (Proair Hfa S - Inh) 8 [facility]m [facility] Carvedilol No 25mg [facility] (Coreg) 25 S - Mg TAB [facility] Chlordiazep No 25mg [facility] oxide S - (Librium) [place] 25 Mg CAP [facility] Fluoxetine No 20mg [facility] Hcl S - (Prozac) 20 [place] Mg CAP [facility] Folic Acid No 1mg [facility] (Folvite) 1 S - Mg TAB [facility] Losartan No 50mg [facility] Potassium S - (Cozaar) 50 [place] Mg TAB [facility] Omeprazole No 40mg [facility] (Prilosec) S - 40 Mg CPDR [facility] Thiamine No 100mg [facility] Hcl S - (Vitamin [place] B-1) 100 Mg [facility]oria TAB l Hospita [facility] Vital Signs Vital Name Observation Time Observation Value Comments Source Heart Rate 2020-04-01 05:01:00 75 /min [facility] Respiratory rate 2020-04-01 05:01:00 16 [facility] 2020-04-01 05:01:00 [facility] 2020-04-01 05:01:00 59 mm[Hg] [facility] Heart Rate 2020-04-01 04:21:00 75 /min [facility] Respiratory rate 2020-04-01 04:21:00 16 /min [facility]stolic 2020-04-01 04:21:00 102 mm[facility]Hg[facility] Di[facility] 2020-04-01 04:21:00 59 mm[Hg] LON Ni [facility] Procedures Procedure Date / Time Performed Performing Clinician Sour e Computed tomography of 2020-03-31 00:00:00 KALYN Ni abdomen and pelvis [facility] without contrast Plan of Care Planned Activity Planned Date Details Comments Source Goal Patient referral [code = JENNY Ni [id number] ] [facility] Instructions Gall[facility] (DC) [facility] Naomi Mills [facility] Encounters Start End Encounter Admission Attending Care Care Encounter Source Date/Time Date/Time Type Type Clinicians Facility Department ID 2020-03-31 2020-04-01 Departed GAYLA Ni [id number] [facility] 23:29:00 04:32:[address] 2020-03-05 2020-03-05 [facility] [id number] 08:20:00 08:20:00 [facility] Medicine Outpati ent Clinics 2019-09-24 2019-09-24 [facility] [id number] [facility] 19:14:00 19:14:00 [facility] Medicine Outpati ent Clinics 2019-04-15 2019-04-15 [facility] [id number] [address] 08:40:00 08:40:00 [facility] Medicine Outpati ent Clinics 2019-03-10 2019-03-10 [facility] [id number] [address] 14:40:00 14:40:00 [facility] Medicine Outpati ent Clinics 2019-02-26 2019-02-26 [facility] [id number] 09:40:00 09:40:00 [facility] Medicine Outpati ent Clinics 2019-02-24 2019-02-24 [facility] [id number] [facility] 14:16:00 14:16:00 [facility] Medicine Outpati ent Clinics 2018-11-14 2018-11-14 [facility] [id number] 13:30:00 13:30:00 [facility] Medicine Outpati ent Clinics Results Test Description Test Time Test Comments Results Result Comments Source Venous whole blood sodium measurement (moles/volume) 2020-03 00:15:00 Test Item Value Reference Range Interpretation Comme nts Bedside Sodium (test code = 82335-9) 136 mmol/L [facility] whole blood potassium measurement (moles/volume)2020-04-01 00:15:00 Test Item Value Reference Range Interpretation Comments Bedside Potassium (test code = 3.8 mmol/L 93559-6) [facility] whole blood chloride measurement (moles/volume)2020-04-01 00:15:00 Test Item Value Reference Range Interpretation Comments Bedside Chloride (test code = 101 mmol/L 85022-5) [facility] whole blood total carbon dioxide measurement (moles/volume)2020-04-01 00:15:00 Test Item Value Reference Range Interpretation Comments Bedside Total CO2 (test code = 23.0 mmol/L 2026-1) [facility] whole blood urea nitrogen (BUN) measurement (mass/volume)2020-04-01 00:15:00 Test Item Value Reference Range Interpretation Comments Bedside Blood Urea Nitrogen (test 12 mg/dL code = 31592-6) [facility] creatinine measurement (mass/volume) 2020-04-01 00:15:00 Test Item Value Reference Range Interpretation Comments Bedside Creatinine (test code = 2.1 mg/dL 69731-1) [facility] whole blood glucose measurement (mass/volume)2020-04-01 00:15:00 Test Item Value Reference Range Interpretation Comments Bedside Glucose (test code = 99 mg/dL 32607-6) [facility] (moles/volume)2020-04-01 00:15:00 Test Item Value Reference Range Interpretation Comments Bedside Whole Blood Ionized 0.99 mmol/L Calcium (test code = 1994-3) [facility] anion [id number] 00:15:00 Test Item Value Reference Range Interpretation Comments Bedside Anion Gap (test code = 16780-1) 17 [facility] [id number] 00:15:00 Test Item Value Reference Range Interpretation Comments Estimat Glomerular Filtration Rate 37 (test code = 17969-4) [facility] blood hemoglobin measurement (mass/volume)2020-04-01 00:15:00 Test Item Value Reference Range Interpretation Comments Bedside Hemoglobin (test code = 13.9 g/dL 21418-6) [facility] blood hematocrit (volume fraction) 2020-04-01 00:15:00 Test Item Value Reference Range Interpretation Comments Bedside Hematocrit (test code = 41.0 % 16447-7) [facility] blood lactic acid measurement (moles/volume)2020-04-01 00:10:00 Test Item Value Reference Range Interpretation Comments Bedside Lactic Acid Venous (test 1.74 mmol/L code = 2519-7) [facility] blood leukocyte count (number/volume)2020-03-31 11:50:00 Test Item Value Reference Range Interpretation Comments White Blood Count (test code = 11.4 10*3/uL 6690-2) [facility] erythrocytes automated count (number/volume)2020-03-31 11:50:00 Test Item Value Reference Range Interpretation Comments Red Blood Count (test code = 4.25 10*6/uL 789-8) [facility] hemoglobin measurement (mass/volume) 2020-03-31 11:50:00 Test Item Value Reference Range Interpretation Comments Hemoglobin (test code = 718-7) 14.5 g/dL [facility] blood hematocrit (volume fraction) 2020-03-31 11:50:00 Test Item Value Reference Range Interpretation Comments Hematocrit (test code = 4544-3) 41.8 % [facility]ville[facility] erythrocyte mean corpuscular volume (MCV) [id number] 11:50:00 Test Item Value Reference Range Interpretation Comments Mean Corpuscular Volume (test code = 98.4 fL 787-2) [facility]ville[facility] erythrocyte mean corpuscular hemoglobin (mass per erythrocyte)2020-03-31 11:50:00 Test Item Value Reference Range Interpretation Comments Mean Corpuscular Hemoglobin (test 34.1 pg code = 785-6) [facility] erythrocyte mean corpuscular hemoglobin concentration measurement (mass/[id number] 11:50:00 Test Item Value Reference Range Interpretation Comments Mean Corpuscular Hemoglobin Concent 34.7 g/dL (test code = 786-4) [facility] erythrocyte distribution width [id number] 11:50:00 Test Item Value Reference Range Interpretation Comments Red Cell Distribution Width (test code 12.8 % = 788-0) [facility] blood platelet count (count/volume) 2020-03-31 11:50:00 Test Item Value Reference Range Interpretation Comments Platelet Count (test code = 105 10*3/uL 777-3) [facility] blood platelet mean volume [id number] 11:50:00 Test Item Value Reference Range Interpretation Comments Mean Platelet Volume (test code = 10.1 fL 10673-7) [facility] [id number] 11:50:00 Test Item Value Reference Range Interpretation Comments Manual Differential (test code = ----- 8265-1) [facility] blood segmented neutrophils/100 [id number] 11:50:00 Test Item Value Reference Range Interpretation Comments Neutrophils % (Manual) (test code = 61 % 769-0) [facility] blood lymphocytes/100 leukocytes 2020-03-31 11:50:00 Test Item Value Reference Range Interpretation Comments Lymphocytes % (Manual) (test code = 23 % 737-7) [facility] blood monocytes/100 leukocytes 2020-03-31 11:50:00 Test Item Value Reference Range Interpretation Comments Monocytes % (Manual) (test code = 14 % 744-3) [facility] blood eosinophil count as percentage of total [id number] 11:50:00 Test Item Value Reference Range Interpretation Comments Eosinophils % (Manual) (test code = 2 % 714-6) [facility] platelet detection by light microscopy 2020-03-31 11:50:00 Test Item Value Reference Range Interpretation Comments Platelet Estimate (test code = Decreased 9317-9) [facility] erythrocyte morphology finding [id number] 11:50:00 Test Item Value Reference Range Interpretation Comments Red Blood Cell Morphology (test code = Normal 6742-1) [facility] or plasma sodium measurement (moles/volume)2020-03-31 11:50:00 Test Item Value Reference Range Interpretation Comments Sodium Level (test code = 2951-2) 135 mmol/L [facility] or plasma potassium measurement (moles/volume)2020-03-31 11:50:00 Test Item Value Reference Range Interpretation Comments Potassium Level (test code = 3.7 mmol/L 2823-3) [facility] or plasma chloride measurement (moles/volume)2020-03-31 11:50:00 Test Item Value Reference Range Interpretation Comments Chloride Level (test code = 102 mmol/L 5-0) [facility] or plasma total carbon dioxide measurement (moles/volume)2020-03-31 11:50:00 Test Item Value Reference Range Interpretation Comments Carbon Dioxide Level (test code = 19 mmol/L 2027-) [facility] or plasma anion gap determination (moles/volume)2020-03-31 11:50:00 Test Item Value Reference Range Interpretation Comments Anion Gap (test code = 86182-9) 18 [facility] or plasma urea nitrogen measurement (mass/volume)2020-03-31 11:50:00 Test Item Value Reference Range Interpretation Comments Blood Urea Nitrogen (test code = 11 mg/dL 3094-0) [facility] or plasma creatinine measurement (mass/volume)2020-03-31 11:50:00 Test Item Value Reference Range Interpretation Comments Creatinine (test code = 2160-0) 1.8 mg/dL [facility] [id number] 11:50:00 Test Item Value Reference Range Interpretation Comments Estimat Glomerular Filtration Rate 44 (test code = 27658-6) [facility] or plasma urea nitrogen/creatinine mass [id number] 11:50:00 Test Item Value Reference Range Interpretation Comments BUN/Creatinine Ratio (test code = 6 3097-3) [facility] or plasma glucose measurement (mass/volume)2020-03-31 11:50:00 Test Item Value Reference Range Interpretation Comments Glucose Level (test code = 2345-7) 98 mg/dL [facility]ainesvilleOsmolality of Serum or Plasma by calculation 2020-03-31 11:50:00 Test Item Value Reference Range Interpretation Comments Calculated Osmolality (test code 269 mosm/kg = 55328-8) [facility] or plasma calcium measurement (mass/volume)2020-03-31 11:50:00 Test Item Value Reference Range Interpretation Comments Calcium Level (test code = 53443-7) 7.8 mg/dL [facility] or plasma total bilirubin measurement (mass/volume)2020-03-31 11:50:00 Test Item Value Reference Range Interpretation Comments Total Bilirubin (test code = 0.8 mg/dL 1974-) [facility] or plasma total combined glucuronidated bilirubin and albumin bound bilirubin measurement (mass/volume)2020-03-31 11:50:00 Test Item Value Reference Range Interpretation Comments Direct Bilirubin (test code = 0.4 mg/dL 1968-02) [facility] or plasma aspartate aminotransferase measurement (enzymatic activity/volume)2020-03-31 11:50:00 Test Item Value Reference Range Interpretation Comments Aspartate Amino Transf (AST/SGOT) 67 U/L (test code = 1920-8) [facility] or plasma alanine aminotransferase measurement (enzymatic activity/volume)2020-03-31 11:50:00 Test Item Value Reference Range Interpretation Comments Alanine Aminotransferase (ALT/SGPT) 42 U/L (test code = 1742-6) [facility] or plasma protein measurement (mass/volume)2020-03-31 11:50:00 Test Item Value Reference Range Interpretation Comments Total Protein (test code = 2885-2) 7.5 g/dL [facility] or plasma albumin measurement (mass/volume)2020-03-31 11:50:00 Test Item Value Reference Range Interpretation Comments Albumin (test code = 1751-7) 4.0 g/dL [facility] globulin measurement by calculation (mass/volume)2020-03-31 11:50:00 Test Item Value Reference Range Interpretation Comments Globulin (test code = 24628-3) 3.5 g/dL [facility] or plasma albumin/globulin mass ratio 2020-03-31 11:50:00 Test Item Value Reference Range Interpretation Comments Albumin/Globulin Ratio (test code = 1.1 1759-0) [facility] or plasma alkaline phosphatase measurement (enzymatic activity/volume)2020-03-31 11:50:00 Test Item Value Reference Range Interpretation Comments Alkaline Phosphatase (test code = 71 U/L 6768-6) [facility] or plasma lipase measurement (enzymatic activity/volume)2020-03-31 11:50:00 Test Item Value Reference Range Interpretation Comments Lipase (test code = 3040-3) 299 U/L [facility]ainesvilleUrinalysis specimen collection method 2020-03-31 02:48:00 Test Item Value Reference Range Interpretation Comments Urine Source (test code = 29229-4) URINE [facility] color [id number] 02:48:00 Test Item Value Reference Range Interpretation Comments Urine Color (test code = 5778-6) Yellow [facility]villeUrine clarity [id number] 02:48:00 Test Item Value Reference Range Interpretation Comments Urine Appearance (test code = 20588-2) Clear [facility] pH measurement by automated test strip 2020-03-31 02:48:00 Test Item Value Reference Range Interpretation Comments Urine pH (test code = 89169-1) 5.0 [facility] gravity of Urine by Automated test [id number] 02:48:00 Test Item Value Reference Range Interpretation Comments Urine Specific [place] (test code = 1.020 84883-7) [facility] protein measurement by automated test strip (mass/volume)2020-03-31 02:48:00 Test Item Value Reference Range Interpretation Comments Urine Protein (test code = 16813-5) 100 mg/dL [facility] glucose measurement by automated test strip (mass/volume)2020-03-31 02:48:00 Test Item Value Reference Range Interpretation Comments Urine Glucose (UA) (test code Negative mg/dL = 69478-0) [facility] ketones measurement by automated test strip (mass/volume)2020-03-31 02:48:00 Test Item Value Reference Range Interpretation Comments Urine Ketones (test code = 02140-7) 15 mg/dL [facility] erythrocytes count by automated test strip (number/volume)2020-03-31 02:48:00 Test Item Value Reference Range Interpretation Comments Urine Occult Blood (test Negative {Butch}/uL code = 25130-9) [facility] nitrite detection by automated test [id number] 02:48:00 Test Item Value Reference Range Interpretation Comments Urine Nitrite (test code = 66388-2) Negative [facility] total bilirubin measurement by automated test strip (mass/volume)2020-03-31 02:48:00 Test Item Value Reference Range Interpretation Comments Urine Bilirubin (test code = 89543-6) 1 mg/dL [facility]villeConfirmatory urine bilirubin measurement 2020-03-31 02:48:00 Test Item Value Reference Range Interpretation Comments Urine Ictotest (test code = 84681-7) Positive [facility] urobilinogen measurement by automated test strip (mass/volume)2020-03-31 02:48:00 Test Item Value Reference Range Interpretation Comments Urine Urobilinogen (test code = 4.0 mg/dL 18238-3) [facility] leukocytes count by automated test strip (number/volume)2020-03-31 02:48:00 Test Item Value Reference Range Interpretation Comments Urine Leukocyte Esterase (test 25 {Zohaib}/uL code = 65226-3) [facility]villeMicroscopic examination of [id number] 02:48:00 Test Item Value Reference Range Interpretation Comments Microscopic Urinalysis (T) (test code = ----- 05377-9) [facility] sediment erythrocyte count by microscopy (number/high power field)2020-03-31 02:48:00 Test Item Value Reference Range Interpretation Comments Urine RBC (test code = None Seen /[HPF] 68998-1) [facility] sediment leukocyte count by microscopy (number/high power field)2020-03-31 02:48:00 Test Item Value Reference Range Interpretation Comments Urine WBC (test code = 5821-4) 0-5 /[HPF] [facility] sediment epithelial cell count by microscopy (number/high power field)2020-03-31 02:48:00 Test Item Value Reference Range Interpretation Comments Urine Epithelial Cells (test code Few /[HPF] = 5787-7) [facility] sediment crystal count by microscopy (number/high power field)2020-03-31 02:48:00 Test Item Value Reference Range Interpretation Comments Urine Crystals (test code = None Seen /[HPF] 48184-7) [facility]villeAmorphous sediment detection in urine sediment by light [id number] 02:48:00 Test Item Value Reference Range Interpretation Comments Urine Amorphous Sediment Moderate /[HPF] (test code = 8246-1) [facility] sediment bacteria count by microscopy (number/high power field)2020-03-31 02:48:00 Test Item Value Reference Range Interpretation Comments Urine Bacteria (test code = None Seen /[HPF] 5769-5) [facility] sediment casts count by microscopy (number/low power field)2020-03-31 02:48:00 Test Item Value Reference Range Interpretation Comments Urine Casts (test code = Present /[LPF] 9842-6) [facility] sediment hyaline cast count by microscopy (number/low power field)2020-03-31 02:48:00 Test Item Value Reference Range Interpretation Comments Urine Hyaline Casts (test code = 2-5 /[LPF] 5796-8) [facility] in [facility] sediment by microscopy (number/low power field )2020-03-31 02:48:00 Test Item Value Reference Range Interpretation Comments Urine Fine Granular Casts (test 6-10 /[LPF] code = 74229-8) [facility]ville[facility]east detection in urine sediment by light [id number] 02:48:00 Test Item Value Reference Range Interpretation Comments Urine Yeast (test code = None Seen /[HPF] 32786-9) [facility] 02:48[facility]00 Test Item Value Reference Range Interpretation Comments Urinalysis Comment (test code = 8262-8) * [facility] comment 02:48:00 Test Item Value Reference Range Interpretation Comments Urine Culture Indicated (test code = Not Ind 8264-4) [facility]
--- OUTSIDE RECORDS SUMMARY | 2020-06-03 17:17 | XMS REPORT | Continuity of Care Document ---
:1975 Author Organization [facility] HCIS Care Team Providers Name Role Phone FOUND, NOT Primary Care Physician Unavailable Allergies, Adverse Reactions, Alerts No known allergies. Medications Medication Status Dose Units Route Sig Qty Days Start End Instruct ions Date Date Albuterol (Proair Active 2 PUFF INH 1 Hfa Inh) 8 Gm AERO Carvedilol (Coreg) Active 25 MG PO Twice 25 Mg TAB A Day Chlordiazepoxide Active 25 MG PO Three (Librium) 25 Mg Times CAP A Day Fluoxetine Hcl Active 20 MG PO Daily (Prozac) 20 Mg CAP Folic Acid Active 1 MG PO Daily (Folvite) 1 Mg TAB Losartan Potassium Active 50 MG PO Daily (Cozaar) 50 Mg TAB Omeprazole Active 40 MG PO Daily (Prilosec) 40 Mg CPDR Thiamine Hcl Active 100 MG PO Daily (Vitamin B-1) 100 Mg TAB Problems No problem information available. Procedures Procedure Date Performed Status Computed tomography of abdomen March 31, 2020 completed and pelvis without contrast Relevant Diagnostic Tests and/or Laboratory Data Laboratory Results Test Date/Time Result Interpretation Reference Result Perfo rming Range Comment Site White Blood Count March 11.4 4.5-11.5 [facility], [facility] 2019 10*3/uL [facility] [address] 11:50am Red Blood Count March 4.25 4.4-6.2 [facility], [facility] 2019 10*6/uL [facility] [address] 11:50am Hemoglobin March 14.5 g/dL 13.0-17.5 [facility], [facility] 2019 [facility] [address] 11:50am Hematocrit March 41.8 % 39.0-52.5 [facility] morinh Laboratory, [facility] Hooked 2019 [facility] [place] [address] 11:50am Mean Corpuscular March 98.4 fL 80-94 Gallo per [facility], [facility] Hooked Volume 2019 [facility], [place] [address] 11:50am Mean Corpuscular March 34.1 pg 27.0-33.0 Gallo per [facility], [address] [place], [place] [address] Hemoglobin 2019 [facility] [place] [address] 11:50am Mean Corpuscular March 34.7 g/dL 33.0-37.0 Gallo per [facility], [facility] Hooked Hemoglobin Concent 2019 [facility] [place] [address] 11:50am Red Cell March 12.8 % 10.7-14.5 [facility], [facility] Hooked Distribution Width 2019 [facility] [place] [address] 11:50am Platelet Count March 105 150-450 [facility], [facility] Hooked 2019 10*3/uL [facility] [place] [address] 11:50am Mean Platelet March 10.1 fL 5.7-10.7 [facility], [facility] Hooked Volume 2019 [facility] [place] [address] 11:50am Manual March ----- [facility], [facility] Hooked Differential 2019 [facility] [place] [address] 11:50am Neutrophils % March 61 % 42-75 [facility], [facility] Hooked (Manual) 2019 [facility] [place] [address] 11:50am Lymphocytes % March 23 % 21-51 [facility], [facility] Hooked (Manual) 2019 [facility] [place] [address] 11:50am Monocytes % March 14 % 1-9 [facility], [facility] Hooked (Manual) 2019 [facility] [place] [address] 11:50am Eosinophils % March 2 % 0-7 [facility], [facility] Hooked (Manual) 2019 [facility] [place] [address] 11:50am Platelet Estimate March Decreased [facility], [address] [place] [address] Smart Checkout 2019 [place] [address] 11:50am Red Blood Cell March Normal [facility], [address] [place] [address] [employer] Morphology 2019 [place] [address] 11:50am Urine Source March URINE [facility], [address] [place] [address] Smart Checkout 2019 [place] [address] 2:48am Urine Color March Yellow [facility], [address] [place] [address] Smart Checkout 2019 * [place] [address] 2:48am Urine Appearance March Clear Clear * [facility], [address] [place] [address] Smart Checkout 2019 [place] [address] 2:48am Urine pH March 5.0 5.0-8.0 [facility], [address] [place] [address] [employer] 2019 [place] [address] 2:48am Urine Specific March 1.020 1.005-1.03 [facility], [address] [place] [address] Smart Checkout Hellier 2019 0 [place] [address] 2:48am Urine Protein March 100 mg/dL Negative * [facility], [address] [place] [address] Smart Checkout 2019 [place] [address] 2:48am Urine Glucose (UA) March Negative Negative * [facility], [address] [place] [address] [employer] 2019 mg/[place] [address] 2:48am Urine Ketones March 15 mg/dL Negative * [facility], [address] [place] [address] Smart Checkout 2019 [place] [address] 2:48am Urine Occult Blood March Negative Negative * [facility], [address] [place] [address] Smart Checkout 2019 {Butch}/[place] [address] 2:48am Urine Nitrite March Negative Negative [facility], [address] [place] [address] Smart Checkout 2019 [place] [address] 2:48am Urine Bilirubin March 1 mg/dL Negative [facility], [address] [place] [address] Smart Checkout 2019 [place] [address] 2:48am Urine Ictotest March Positive Negative ICTO POS [facility], [address] [place] [address] Smart Checkout 2019 [place] [address] 2:48am Urine Urobilinogen March 4.0 mg/dL 0.0-1.0 J [facility], [facility] Hooked [address] [place] [address] 2:48am Urine Leukocyte April 20 Negative [facility], [address] [place], [place] [address] Esterase 2019 {Zohaib}/[place] [address] 2:48am Microscopic March ----- [facility], [address] [place] [address] Smart Checkout Urinalysis (T) 2019 [place] [address] 2:48am Urine RBC March None Seen 0-2 [facility] orinh Laboratory, [address] [place], [place] [address] 2019 /[HPF] [place] [address] 2:48am Urine WBC March 0-5 /[HPF] 0-5 [facility], [address] [place], [place] [address] 2019 [place] [address] 2:48am Urine Epithelial March Few /[HPF] Few [facility], [address] [place] [address] Smart Check[employer] Cells 2019 [place] [address] 2:48am Urine Crystals March None Seen None * [facility], [facility] Hooked 2019 /[HPF] [place] [address] 2:48am Urine Amorphous March Moderate None * [facility], [facility] Hooked Sediment 2019 /[HPF] [place] [address] 2:48am Urine Bacteria March None Seen None [facility], [facility] Hooked 2019 /[HPF] [place] [address] 2:48am Urine Casts March Present None * Last [facility], [facility] Hooked 2019 /[LPF] [place] [address] 2:48am Urine Hyaline March 2-5 /[LPF] 0-1 [facility], [facility] Hooked Casts 2019 [place] [address] 2:48am Urine Fine March 6-10 None * [facility], [facility] Hooked Granular Casts 2019 /[LPF] [place] [address] 2:48am Urine Yeast March None Seen None Last [facility], [facility] Hooked 2019 /[HPF] [place] [address] 2:48am Urinalysis Comment March * * Ref Range = [facility], [facility] Hooked 2019 * Clinical [facility] [place] [address] 2:48am evaluation required. Urine Culture March Not Ind [facility], [facility] Hooked Indicated 2019 [facility], [place] [address] 2:48am Sodium Level March 135 mmol/L 136-145 [facility], [facility] Hooked 2019 [facility] [place] [address] 11:50am Potassium Level March 3.7 mmol/L 3.5-5.1 [facility], [facility] Hooked 2019 [facility] [place] [address] 11:50am Chloride Level March 102 mmol/L 98-107 [facility], [facility] Hooked 2019 [facility] [place] [address] 11:50am Carbon Dioxide March 19 mmol/L 22-29 [facility], [facility] Hooked Level 2019 [place] [address] 11:50am Anion Gap March 18 8-18 [facility], [facility] Hooked 2019 [facility], [place] [address] 11:50am Blood Urea March 11 mg/dL 9-21 [facility], [facility] Hooked Nitrogen 2019 [facility] [place] [address] 11:50am Creatinine March 1.8 mg/dL 0.7-1.3 [facility], [facility] Hooked 2019 [facility] [place] [address] 11:50am Estimat Glomerular March 44 73-125 [facility], [facility] Hooked Filtration Rate 2019 [facility] [place] [address] 11:50am Patients with Estimated GFR Known Kidney Disease (ml/min/1.7 3 sq.meters)S tage 1 - Kidney damage w/normal 90 mL/min or greater or increased GFRStage 2 - Kidney disease w/mildly 60-89 mL/min decreased GFRStage 3 - Moderately decreased GFR 30-59 mL/minStage 4 - Severely decreased GFR 15-29 mL/minStage 5 - Kidney failure 14 mL/min or lessTo estimate the GFR for Americans, multiply the result provided by 1.21. BUN/Creatinine March 6 [facility], [address] [place] [address] Ratio 2019 [place] [address] 11:50am Glucose Level March 98 mg/dL 60-100 [facility], [address] [place] [address] 2019 [place] [address] 11:50am Calculated March 269 [facility], [address] [place] [address] Osmolality 2019 mosm/[place] [address] 11:50am Calcium Level March 7.8 mg/dL 8.4-10.2 [facility], [address] [place] [address] 2019 [facility] [place] [address] 11:50am Total Bilirubin March 0.8 mg/dL 0.2-1.2 [facility], [address] [place] [address] 2019 [place] [address] 11:50am Direct Bilirubin March 0.4 mg/dL 0.0-0.5 [facility], [address] [place] [address] 2019 [place] [address] 11:50am Aspartate Amino March 67 U/L 5-34 [facility], [address] [place] [address] Transf (AST/SGOT) 2019 [place] [address] 11:50am Alanine March 42 U/L 0-55 [facility], [address] [place] [address] Aminotransferase 2019 [place] [address] (ALT/SGPT) 11:50am Total Protein March 7.5 g/dL 6.4-8.3 [facility], [address] [place] [address] 2019 [place] [address] 11:50am Albumin March 4.0 g/dL 3.5-5.0 [facility], [address] [place] [address] 2019 [place] [address] 11:50am Globulin March 3.5 g/dL [facility], [address] [place] [address] 2019 [place] [address] 11:50am Albumin/Globulin March 1.1 [facility], [address] [place] [address] [facility] Ratio 2019 [place] [address] 11:50am Alkaline March 71 U/L 40-150 [facility], [address] [place] [address] Phosphatase 2019 [place] [address] 11:50am Lipase March 299 U/L 8-78 [facility], [address] [place] [address] [facility] [place] 2019 [place] [address] 11:50am Bedside Sodium March 136 mmol/L 136-145 [facility], [address] [place] [address] [facility] [place] 2019 [place] [address] 12:15am Bedside Potassium March 3.8 mmol/L 3.5-5.1 [facility], [address] [place] [address] [facility] 2019 [place] [address] 12:15am Bedside Chloride March 101 mmol/L 100-112 [facility], [address] [place] [address] [facility] 2019 [place] [address] 12:15am Bedside Total CO2 March 23.0 24.0-33.0 [facility], [address] [place] [address] [facility] [place] 2019 mmol/[place] [address] 12:15am Bedside Blood Urea March 12 mg/dL 6-20 J [facility], [address] [place] [address] [facility] Nitrogen 2019 [place] [address] 12:15am Bedside Creatinine March 2.1 mg/dL 0.9-1.5 J [facility], [address] [place] [address] [facility] 2019 [place] [address] 12:15am Bedside Glucose March 99 mg/dL 60-100 [facility], [address] [place] [address] [facility] [address] [place] [address] 12:15am Bedside Whole March 0.99 1.12-1.32 [facility], [address] [place] [address] [facility] Blood Ionized 2019 mmol/[place] [address] Calcium 12:15am Bedside Anion Gap March 17 8-18 [facility], [address] [place] [address] [address] [employer] [facility] 2019 [place] [address] 12:15am Estimat Glomerular March 37 73-125 [facility], [address] [place] [address] [facility] Filtration Rate 2019 [facility] [place] [address] 12:15am Patients with Estimated GFR Known Kidney Disease (ml/min/1.7 3 sq.meters)S tage 1 - Kidney damage w/normal 90 mL/min or greater or increased GFRStage 2 - Kidney disease w/mildly 60-89 mL/min decreased GFRStage 3 - Moderately decreased GFR 30-59 mL/minStage 4 - Severely decreased GFR 15-29 mL/minStage 5 - Kidney failure 14 mL/min or lessTo estimate the GFR for Americans, multiply the result provided by 1.21. Bedside Hemoglobin March 13.9 g/dL 13.0-17.5 [facility] [place], [address] 2019 [place] [address] 12:15am Bedside Hematocrit March 41.0 % 40.0-53.0 [facility] [place], [address] 2019 [place] [address] 12:15am Bedside Lactic March 1.74 0.50-2.20 [facility], [facility] Hooked Acid Venous 2019 mmol/L [facility] [place] [address] 12:10am Diagnostic Imaging Reports Report Dictated Date/Time Dictated By Status Abdomen/Pelvis CT April 01, 2020 PASTOR OLEA MD completed 2:02am CT abdomen and pelvis without contrast, 04/01/2020, 0102 hours HISTORY: Right-sided abdominal pain. Gal lstones. TECHNIQUE: Axial tomographic images are performed. Sagittal and coronal reform atted images are also provided. This CT exam was performed using one or more of the following dose reduction techniques: Automated exposure control, adjustment of the MA and/or KV according to patient 's size, or use of iterative reconstruction technique. COMPARISON: None FINDINGS: There is moderately severe dif fuse low-density throughout the normal size liver. Liver does show some mild to moderate surface contour undulation. There may be some relative prominence of the left lobe compared to the caudate and right lobe. Gallbladder demonstrates several 5 mm or less peripheral gallstones and/or scattered punctate dyana cified gallbladder wall foci within the body region. No biliary tract abnormalit y is seen. There is mild splenic prominence with the spleen measuring at least 15 cm in cephalocaudal dimension. Pancreas, adrenal glands, kidneys, urete rs, bladder, prostate and seminal vesicles are maintained. GI tract appears maintained, including n ormal appendix. Abdominal and pelvic vascular structures are preserved. Calci fied left pelvic phlebolith formation is noted. No lymphadenopathy, ascites, free air no r urolithiasis is appreciated. There is some minimal degenerative lippi ng within the thoracic and lumbar spine. Small to moderate T11 Schmorl's n odule deformity is noted. Midline infraumbilical anterior abdominal wall s urgical scarring is present with some surgical clips involving the atrophic le ft rectus compartment and possibly near the inguinal canal region. Minimal dependent atelectasis and/or dis coid volume loss of the left lower lobe lung is noted. IMPRESSION: 1. No definite acute abnormality nor obv ious malignancy. 2. Advanced fatty liver. Likely mild to moderate bilateral chronic hepatitis and/or liver cirrhotic morphology. 3. Mild splenomegaly. 4. Minimal cholelithiasis versus less li jelena porcelain gallbladder. Dictated By: PASTOR OLEA MD Date Dictated: 04/01/20201 Signed by: PASTOR OLEA MD Date Signed: 04/01/20210 Health Concerns Health Concerns may be documented in an alternate section. Advance Directives Advance Directive Response Recorded Date/Time Does the Patient have an No April 01 0 2:17am Advance Directive? Chief Complaint and Reason for Visit Chief Complaint Abdominal Pain Reason for Visit [id number] Encounters Encounter Location(s) Arrival/Admit Date Discharge/Depart Date Provider(s) Departed [facility] March 31, 2020 April 01, 2020 [facility] 11:29pm 4:32am Assessments No Assessments Information Available Functional Status No Functional Status information available Goals Goals may be documented in an alternate section. Immunizations No Immunization Information Available Mental Status No Mental Status Information Available Medical Equipment No Medical Equipment Information available Insurance Providers Guarantor Sung Brown Address [address] [address] Contact Info. Home Phone: Payer Policy Id Coverage Id Subscriber's Subscriber Id Effective E xpiration Name Date Date [place] [id number] Sung [place] [id number] September b Oskar 2019 Medicare [id number] Sung Brown [id number] 2003 Plan of Treatment As we discussed please make sure to follow-up with your primary care doctor in the next of days, please let them know that your lipase level was mildly elevated today, if you develop worsening abdominal pain or vomiting please return the emergency room. If you develop worsening symptoms, high fever, severe pain or other concerning symptoms please make sure to return immediately to the emergency room for reevaluation, otherwise please make sure to follow-up with a primary care doctor as soon as possible. The examination and treatment that you have received has been on an emergency basis only and is not intended as an effort to provide complete medical care. It is impossible to recognize and treat all elements of an illness or injury in a single ER visit, for this reason it is very important to follow up with a primary care doctor. Thank you for allowing us to provide emergent medical care to you. We consider it a privilege to have served you during your illness or injury. If you have received a prescription, please fill it TODAY and follow the instructions carefully. If you have been prescribed tylenol 3 or trammadol please make sure not to drive a vehicle or operate machinery while taking this medication. For list of local primary care providers please see below: [facility] Address: [address] [address] Appointments: [facility] Address: [address] [place] [address] [facility]: [facility] Address: [address] [place] [address] For orthopedic injuries: [facility] Address: [address] [place] [address] Hours: Opens 8AM For mental health [facility] [place] Address: [address], [place] [address] Hours: Opens 8AM Thea Future Tests Future scheduled test information is unavailable Pending Tests Pending diagnostic test information is unavailable Future Visits Future appointment information is unavailable Referrals to Other Providers Reason for Referral Start Provider Provider Contact Provider Address Referral Date Information FOUND, PCP NOT Future Procedures Future procedure information is unavailable Future Medications Future medication information is unavailable Patient Instructions Gallstones (DC) Social History Assigned Sex Male Vital Signs Vital Reading Result Reference Range Collection Date/ Time Heart Rate 75 /min (60 - 100) April 01, 2020 4:21am Heart Rate 75 /min April 01, 2020 5:01am Respiratory rate 16 /min (12 - 24) April 01 0 4:21am Respiratory rate 16 /min April 01 0 5:01am BP Systolic 102 mm[Hg] (100 - 140) April 01, 2020 4:21am BP Systolic 102 mm[Hg] April 01, 2020 5:01am BP Diastolic 59 mm[Hg] (60 - 90) April 01, 2020 4:21am BP Diastolic 59 mm[Hg] April 01, 2020 5:01am
--- NOTE | 2020-06-05 18:03 | P.DS ---
Discharge Date: 06/03/20 Disposition: ROUTINE DISCHARGE Discharge Condition: GOOD Reason for Admission: Abdominal pain - Problems (1) Cholecystitis, acute Status: Acute (2) Acute pancreatitis Status: Acute (3) HTN (hypertension) Status: Acute (4) WPW (Utprl-Qqfpnyiyz-Hhrcw syndrome) Status: Acute (5) Anxiety disorder Status: Acute Brief History of Present Illness: Patient is a 44-year-old gentleman who came to the hospital with abdominal pain. Patient has history of alcohol abuse as well. Patient was found have acute cholecystitis. Patient was taken to the OR for further evaluation. Patient appears to have alcoholic liver disease. Patient been res counselor regarding cessation. At this time, will admit the patient to the hospital for further evaluation. Patient will proceed with laparoscopic cholecystectomy. Patient does have thrombocytopenia and will monitor during hospitalization. Hospital Course: Patient did well postoperatively. At this time, patient is stable for discharge home with outpatient follow-up. Patient does not want drink any longer. Will prescribed Librium at discharge. He will follow with Dr. Landa in 1 week. Vital Signs/Physical Exam: Temp Pulse Resp BP Pulse Ox 97.6 F 72 18 126/76 95 06/03/20 12:00 06/03/20 12:00 06/03/20 12:00 06/03/20 12:00 06/03/20 12:00 General: Alert, In no apparent distress, Oriented x3 Laboratory Data at Discharge: WBC 5.1 K/uL (4.3-10.9) 06/03/20 03:25 Hgb 14.0 g/dL (13.6-17.9) 06/03/20 03:25 Hct 39.9 % (39.6-49.0) 06/03/20 03:25 Plt Count 70 K/uL (152-406) L D 06/03/20 03:25 Sodium 133 mmol/L (136-145) L 06/03/20 03:25 Potassium 3.8 mmol/L (3.5-5.1) 06/03/20 03:25 BUN 9 mg/dL (7-18) 06/03/20 03:25 Creatinine 1.13 mg/dL (0.55-1.3) 06/03/20 03:25 Glucose 159 mg/dL (74-106) H 06/03/20 03:25 Magnesium 1.9 mg/dL (1.8-2.4) D 06/03/20 13:05 Total Bilirubin 1.5 mg/dL (0.2-1.0) H 06/03/20 03:25 AST 99 U/L (15-37) H 06/03/20 03:25 ALT 49 U/L (12-78) 06/03/20 03:25 Alkaline Phosphatase 72 U/L (45-117) 06/03/20 03:25 Lipase 144 U/L (73-393) 06/03/20 03:25 Home Medications: Albuterol Sulfate [Ventolin Hfa] 1 gm IN PRN 12/10/18 Budesonide/Formoterol Fumarate [Symbicort 160-4.5 Mcg Inhaler] 1 gm IN PRN 12/10/18 Losartan Potassium [Cozaar*] 50 mg PO DAILY 12/10/18 carvediloL [Carvedilol] 25 mg PO DAILY 12/10/18 Fluoxetine HCl [Prozac*] 20 mg PO DAILY 06/02/20 Gabapentin 300 mg PO TID 06/02/20 Lorazepam [Ativan] 1 mg PO DAILYPRN PRN 06/02/20 Omeprazole [Prilosec] 40 mg PO DAILY 06/02/20 Thiamine HCl [Vitamin B-1*] 100 mg PO DAILY 06/02/20 Hydrocodone 5/APAP 325 [[place] 5/325] 1 tab PO Q6H PRN #20 tab 06/03/20 chlordiazePOXIDE HCl [Chlordiazepoxide HCl] 10 mg PO TID #60 capsule 06/03/20 New Medications: chlordiazePOXIDE HCl [Chlordiazepoxide HCl] 10 mg PO TID #60 capsule Hydrocodone 5/APAP 325 [[place] 5/325] 1 tab PO Q6H PRN #20 tab PRN Reason: Pain Patient Discharge Instructions: OK TO DC IV AND DC HOME. FOLLOW-UP WITH DR. LANDA IN 1 WEEK. FOLLOW-UP WITH PCP IN 1-2 WEEKS Diet: soft Activity: Fall precautions Followup: Jennifer Pope, COMMUNITY HEALTH DIRECTOR [ALLIED HEALTH PROFESSIONAL] - 1-2 Weeks (call to schedule an appointment ) Chris Landa MD [ACTIVE - CAN ADMIT] - 1 Week (call to schedule an appointment ) Time spent managing pt's care (in minutes): 35
== END 2020-06-03 15:00 | disposition home or self-care (01) ==
LOC: ER 03:53 → INTOOBSV 07:21 → ERHOLD 07:21 → 4TH 09:50
PROVIDERS: ADMIT Surgery; ATTEND Surgery
PROC: 0FB14ZX Excision of Right Lobe Liver, Percutaneous Endoscopic Approach, Diagnostic (ICD-10-PCS; 2020-06-02)
PROC: 0FT44ZZ Resection of Gallbladder, Percutaneous Endoscopic Approach (ICD-10-PCS; principal; 2020-06-02 12:30)
DX: K80.12 Calculus of gallbladder with acute and chronic cholecystitis without obstruction (principal); K85.90 Acute pancreatitis without necrosis or infection, unspecified; I10 Essential (primary) hypertension; I45.6 Pre-excitation syndrome; F41.9 Anxiety disorder, unspecified; K74.69 Other cirrhosis of liver; K76.0 Fatty (change of) liver, not elsewhere classified; D69.6 Thrombocytopenia, unspecified; B19.20 Unspecified viral hepatitis C without hepatic coma; Z71.41 Alcohol abuse counseling and surveillance of alcoholic; F10.10 Alcohol abuse, uncomplicated; J44.9 Chronic obstructive pulmonary disease, unspecified; F90.9 Attention-deficit hyperactivity disorder, unspecified type; R05 Cough; E88.89 Other specified metabolic disorders; F17.210 Nicotine dependence, cigarettes, uncomplicated; Z20.828 Contact with and (suspected) exposure to other viral communicable diseases; E66.01 Morbid (severe) obesity due to excess calories; Z68.35 Body mass index [BMI] 35.0-35.9, adult
CPT/HCPCS: 47562; 47000; 96365; 96361; 85025 ×2; 80048 ×2; 36415; 83735 ×2; 88313; 80076 ×2; 88304; 88307; 83690 ×2; 83880; 74177; 74300; 71045 ×2; 94010; 96375; 99285; 96366; U0003; Q9967; J2704; J1940; J2550; J0330; J2250; J3010; J2543 ×2; J1100; J2175 ×2; J3475; J1170 ×2; J2710; G0378 ×4; J7799 ×2; J7120 ×2; J7030 ×3; J2405 ×3; 93005

== ENCOUNTER 2020-06-16 21:56 | Inpatient (IN) | payer OTHER ==
--- OUTSIDE RECORDS SUMMARY | 2020-06-16 22:00 | XMS REPORT | Continuity of Care Document ---
:1975 Author Organization [facility] t Address [address] [place] [address] Care Team Providers Name Role Phone FOUND, NOT Primary Care Physician Unavailable Advance Directives Directive Decision Effective Date Termination Date Comments Sour ce Yes N/A [facility] - Gallo per [facility] Problems Condition Condition Condition Status Onset Resolution Last Treating Co mments Source Name Details Category Date Date Treatment Clinician Date GERD GERD Diagnosis Active [facility] (gastroeso (gastroeso Krista kes - phageal phageal Memoria reflux reflux l disease) disease) Outpat i ent Clinics Alcoholic Alcoholic Diagnosis Active [facility] fatty fatty [facility] liver liver [facility] COPD COPD Diagnosis Active [facility] (chronic (chronic [facility] - obstructiv obstructiv Me moria e e l pulmonary pulmonary Outp ati disease) disease) ent Clinics Nicotine Nicotine Diagnosis Active [facility] dependence dependence Krista kes - [facility] Hypertensi Hypertensi Diagnosis Active [facility] Chronic Diagnosis Active [facility] pain pain [facility] - syndrome syndrome [facility] Depression Depression Problem Active [facility] with with [facility] - anxiety anxiety [facility] Anxiety Anxiety Problem Active [facility] Alcoholism Alcoholism Problem Active [facility] Problem Condition [facility] Allergies, Adverse Reactions, Alerts Allergy Allergy Status Severity Reaction(s) Onset Inactive Treating Comm ents Source Name Type Date Date Clinician Lisinopr Adverse Active severe [facility] Reaction fatigue [facility] Social History Social Habit Start Date Stop Date Quantity Comments Source Sex Assigned At [birth year] Male LON [facility] 00:00:00 00:00:00 [facility] Smoking Status Start Date Stop Date Source Unknown if ever smoked [facility] Medications Ordered Filled Start Stop Current Ordering Indication Dosage Frequency Signature Comments Components Source Medication Medication Date Date Medication? Clinician (SIG) Name Name Omeprazole Omeprazole Yes Jennifer [address] [facility] 1-29 Nunda 30 minutes [facility] - 00:00: before [facility] 00 morning l meal [facility] HydrOXYzine HydrOXYzine Yes Jennifer [address] [facility] HCl HCl 8-20 Nunda as needed [facility] - 00:[facility]: [facility] 00 l [facility] Escitalopra Escitalopra Yes Jennifer [address] [facility] m Oxalate m Oxalate 7-15 Nunda Luke s - 00:00: [facility]oria 00 l [facility] Albuterol Albuterol Yes Jennifer 3 ml as [facility] Sulfate Sulfate Nunda needed [facility] Esomeprazol Esomeprazol Yes Jennifer TAKE [address] [facility] e Magnesium e Magnesium Nunda CAPSULE BY [facility] - MOUTH Memoria EVERY DAY l [facility] Symbicort Symbicort Yes Jennifer inhale [address] [facility] Nunda puffs by [facility] - mouth [facility] twice l daily [facility] Viberzi Viberzi Yes Jennifer [address] [facility] Nunda with food [facility] Proctofoam Proctofoam Yes Jennifer [address] [facility] HC Nunda applicatio [facility] - n as [facility] needed l [facility] Gabapentin Gabapentin Yes Jennifer TAKE ONE [facility] Nunda CAPSULE BY [facility] - MOUTH 3 Memoria TIMES A l DAY [facility] Losartan Losartan Yes Jennifer TAKE [address] [facility] Potassium Potassium Nunda TABLET BY [facility] - MOUTH [facility]oria EVERY DAY l [facility] Ventolin Ventolin Yes Jennifer [address] HFA HFA Nunda inhaled [facility] - every 4-6 [facility]oria hours as l needed [facility] Chlordiazep Chlordiazep Yes Jennifer (Schedule [facility] oxide HCl oxide HCl Nunda IV Drug) [facility] - TK 1 C PO Memoria TID l Outpati ent Clinics Nicotine Nicotine Yes Jennifer [address] [facility] Nunda skin [facility] Carvedilol Carvedilol Yes Jennifer 1 tab(s) [address] [facility] Nunda times a [facility] - day orally Mem[facility] l Outpati ent Clinics Albuterol No 2 [facility] (Proair Hfa S - Inh) 8 Gm [facility] Carvedilol No 25mg [facility] (Coreg) 25 S - Mg TAB [facility] Chlordiazep No 25mg [facility] oxide S - (Librium) King 25 Mg CAP [facility] Fluoxetine No 20mg [facility] Hcl S - (Prozac) 20 [facility] Mg [facility] Folic Acid No 1mg [facility] (Folvite) 1 S - Mg TAB [facility] Losartan No 50mg [facility] Potassium S - (Cozaar) 50 King Mg TAB [facility] Omeprazole No 40mg [facility] (Prilosec) S - 40 Mg CPDR [facility] Thiamine No 100mg [facility] Hcl S - (Vitamin King B-1) 100 Mg [facility]oria TAB l Hospita [facility] Vital Signs Vital Name Observation Time Observation Value Comments Source Heart Rate 2020-04-01 05:01:00 75 /min [facility] Respiratory rate 2020-04-01 05:01:00 [facility] Syst[facility] 2020-04-01 05:01:00 102 [facility] Di[facility] 2020-04-01 05:01:00 59 mm[Hg] [facility] Heart Rate 2020-04-01 04:21:00 75 /min [facility] Respiratory rate 2020-04-01 04:21:00 16 /[facility] Systolic 2020-04-01 04:21:00 102 mm[facility]Hg[facility] Diastolic 2020-04-01 04:21:00 59 mm[Hg] LON Ni [facility] Procedures Procedure Date / Time Performed Performing Clinician Sour e Computed tomography of 2020-03-31 00:00:00 KALYN Ni abdomen and pelvis [facility] without contrast Plan of Care Planned Activity Planned Date Details Comments Source Goal Patient referral [code = JENNY Ni [id number] ] [facility] Instructions Gallstones (DC) [facility] Encounters Start End Encounter Admission Attending Care Care Encounter Source Date/Time Date/Time Type Type Clinicians Facility Department ID 2020-03-31 2020-04-01 Departed GAYLA Ni [id number] [facility] 23:29:00 04:32:[address] 2020-03-05 2020-03-05 [facility] [id number] [facility] 08:20:00 08:20:00 [facility] Medicine Outpati ent Clinics 2019-09-24 2019-09-24 [facility] [id number] [facility] 19:14:00 19:14:00 [facility] Medicine Outpati ent Clinics 2019-04-15 2019-04-15 [facility] [id number] [address] 08:40:00 08:40:00 [facility] Medicine Outpati ent Clinics 2019-03-10 2019-03-10 [facility] [id number] 14[facility]40:00 14:40:00 [facility] Medicine Outpati ent Clinics 2019-02-26 2019-02-26 [facility] [id number] 09:40:00 09:40:00 [facility] Medicine Outpati ent Clinics 2019-02-24 2019-02-24 [facility] [id number] 14[facility]16:00 14:16:00 [facility] Medicine Outpati ent Clinics 2018-11-14 2018-11-14 [facility] [id number] 13:30:00 13:30:00 t [facility] Medicine Outpati ent Clinics Results Test Description Test Time Test Comments Results Result Comments Source Venous whole blood sodium measurement (moles/volume) 2020-03 00:15:00 Test Item Value Reference Range Interpretation Comme nts Bedside Sodium (test code = 35105-4) 136 mmol/L [facility] whole blood potassium measurement (moles/volume)2020-04-01 00:15:00 Test Item Value Reference Range Interpretation Comments Bedside Potassium (test code = 3.8 mmol/L 29659-6) [facility] whole blood chloride measurement (moles/volume)2020-04-01 00:15:00 Test Item Value Reference Range Interpretation Comments Bedside Chloride (test code = 101 mmol/L 13655-6) [facility] whole blood total carbon dioxide measurement (moles/volume)2020-04-01 00:15:00 Test Item Value Reference Range Interpretation Comments Bedside Total CO2 (test code = 23.0 mmol/L 2026-1) [facility] whole blood urea nitrogen (BUN) measurement (mass/volume)2020-04-01 00:15:00 Test Item Value Reference Range Interpretation Comments Bedside Blood Urea Nitrogen (test 12 mg/dL code = 12594-1) [facility] creatinine measurement (mass/volume) 2020-04-01 00:15:00 Test Item Value Reference Range Interpretation Comments Bedside Creatinine (test code = 2.1 mg/dL 83185-9) [facility] whole blood glucose measurement (mass/volume)2020-04-01 00:15:00 Test Item Value Reference Range Interpretation Comments Bedside Glucose (test code = 99 mg/dL 97585-3) [facility] (moles/volume)2020-04-01 00:15:00 Test Item Value Reference Range Interpretation Comments Bedside Whole Blood Ionized 0.99 mmol/L Calcium (test code = 1994-3) [facility] anion [id number] 00:15:00 Test Item Value Reference Range Interpretation Comments Bedside Anion Gap (test code = 69602-8) [facility] [id number] 00:15:00 Test Item Value Reference Range Interpretation Comments Estimat Glomerular Filtration Rate 37 (test code = 42448-7) [facility] blood hemoglobin measurement (mass/volume)2020-04-01 00:15:00 Test Item Value Reference Range Interpretation Comments Bedside Hemoglobin (test code = 13.9 g/dL 62538-7) [facility] blood hematocrit (volume fraction) 2020-04-01 00:15:00 Test Item Value Reference Range Interpretation Comments Bedside Hematocrit (test code = 41.0 % 34744-6) [facility] blood lactic acid measurement (moles/volume)2020-04-01 00:10:00 Test Item Value Reference Range Interpretation Comments Bedside Lactic Acid Venous (test 1.74 mmol/L code = 2519-7) [facility] (number/volume)2020-03-31 11:50:00 Test Item Value Reference Range Interpretation Comments White Blood Count (test code = 11.4 10*3/uL 6690-2) [facility] erythrocytes automated count (number/volume)2020-03-31 11:50:00 Test Item Value Reference Range Interpretation Comments Red Blood Count (test code = 4.25 10*6/uL 789-8) [facility] hemoglobin measurement (mass/volume) 2020-03-31 11:50:00 Test Item Value Reference Range Interpretation Comments Hemoglobin (test code = 718-7) 14.5 g/dL [facility] hematocrit (volume fraction) 2020-03-31 11:50:00 Test Item Value Reference Range Interpretation Comments Hematocrit (test code = 4544-3) 41.8 % [facility] mean corpuscular volume (MCV) [id number] 11:50:00 Test Item Value Reference Range Interpretation Comments Mean Corpuscular Volume (test code = 98.4 fL 787-2) [facility] mean corpuscular hemoglobin (mass per erythrocyte)2020-03-31 11:50:00 Test Item Value Reference Range Interpretation Comments Mean Corpuscular Hemoglobin (test 34.1 pg code = 785-6) [facility] erythrocyte mean corpuscular hemoglobin concentration measurement (mass/[id number] 11:50:00 Test Item Value Reference Range Interpretation Comments Mean Corpuscular Hemoglobin Concent 34.7 g/dL (test code = 786-4) [facility] width [id number] 11:50:00 Test Item Value Reference Range Interpretation Comments Red Cell Distribution Width (test code 12.8 % = 788-0) [facility] blood platelet count (count/volume) 2020-03-31 11:50:00 Test Item Value Reference Range Interpretation Comments Platelet Count (test code = 105 10*3/uL 777-3) [facility] blood platelet mean volume [id number] 11:50:00 Test Item Value Reference Range Interpretation Comments Mean Platelet Volume (test code = 10.1 fL 17849-5) [facility] [id number] 11:50:00 Test Item Value Reference Range Interpretation Comments Manual Differential (test code = ----- 8265-1) [facility] blood segmented neutrophils/100 [id number] 11:50:00 Test Item Value Reference Range Interpretation Comments Neutrophils % (Manual) (test code = 61 % 769-0) [facility] blood lymphocytes/100 leukocytes 2020-03-31 11:50:00 Test Item Value Reference Range Interpretation Comments Lymphocytes % (Manual) (test code = 23 % 737-7) [facility] blood monocytes/100 leukocytes 2020-03-31 11:50:00 Test Item Value Reference Range Interpretation Comments Monocytes % (Manual) (test code = 14 % 744-3) [facility] blood eosinophil count as percentage of total [id number] 11:50:00 Test Item Value Reference Range Interpretation Comments Eosinophils % (Manual) (test code = 2 % 714-6) [facility] platelet detection by light microscopy 2020-03-31 11:50:00 Test Item Value Reference Range Interpretation Comments Platelet Estimate (test code = Decreased 9317-9) [facility] erythrocyte morphology finding [id number] 11:50:00 Test Item Value Reference Range Interpretation Comments Red Blood Cell Morphology (test code = Normal 6742-1) [facility] or plasma sodium measurement (moles/volume)2020-03-31 11:50:00 Test Item Value Reference Range Interpretation Comments Sodium Level (test code = 2951-2) 135 mmol/L [facility] or plasma potassium measurement (moles/volume)2020-03-31 11:50:00 Test Item Value Reference Range Interpretation Comments Potassium Level (test code = 3.7 mmol/L 2823-3) [facility] or plasma chloride measurement (moles/volume)2020-03-31 11:50:00 Test Item Value Reference Range Interpretation Comments Chloride Level (test code = 102 mmol/L 5-0) [facility] or plasma total carbon dioxide measurement (moles/volume)2020-03-31 11:50:00 Test Item Value Reference Range Interpretation Comments Carbon Dioxide Level (test code = 19 mmol/L 2027-) [facility] or plasma anion gap determination (moles/volume)2020-03-31 11:50:00 Test Item Value Reference Range Interpretation Comments Anion Gap (test code = 41761-9) 18 [facility] or plasma urea nitrogen measurement (mass/volume)2020-03-31 11:50:00 Test Item Value Reference Range Interpretation Comments Blood Urea Nitrogen (test code = 11 mg/dL 3094-0) [facility] or plasma creatinine measurement (mass/volume)2020-03-31 11:50:00 Test Item Value Reference Range Interpretation Comments Creatinine (test code = 2160-0) 1.8 mg/dL [facility] [id number] 11:50:00 Test Item Value Reference Range Interpretation Comments Estimat Glomerular Filtration Rate 44 (test code = 37423-5) [facility] urea nitrogen/creatinine mass [id number] 11:50:00 Test Item Value Reference Range Interpretation Comments BUN/Creatinine Ratio (test code = 6 3097-3) [facility] or plasma glucose measurement (mass/volume)2020-03-31 11:50:00 Test Item Value Reference Range Interpretation Comments Glucose Level (test code = 2345-7) 98 mg/dL [facility] Hospital[facility]sm[facility] of Serum or Plasma by calculation 2020-03-31 11:50:00 Test Item Value Reference Range Interpretation Comments Calculated Osmolality (test code 269 mosm/kg = 23383-6) [facility] or plasma calcium measurement (mass/volume)2020-03-31 11:50:00 Test Item Value Reference Range Interpretation Comments Calcium Level (test code = 32436-5) 7.8 mg/dL [facility] or plasma total bilirubin measurement (mass/volume)2020-03-31 11:50:00 Test Item Value Reference Range Interpretation Comments Total Bilirubin (test code = 0.8 mg/dL 1974-) [facility] total combined glucuronidated bilirubin and albumin bound bilirubin measurement (mass/volume)2020-03-31 11:50:00 Test Item Value Reference Range Interpretation Comments Direct Bilirubin (test code = 0.4 mg/dL 1968-02) [facility] or plasma aspartate aminotransferase measurement (enzymatic activity/volume)2020-03-31 11:50:00 Test Item Value Reference Range Interpretation Comments Aspartate Amino Transf (AST/SGOT) 67 U/L (test code = 1920-8) [facility] or plasma alanine aminotransferase measurement (enzymatic activity/volume)2020-03-31 11:50:00 Test Item Value Reference Range Interpretation Comments Alanine Aminotransferase (ALT/SGPT) 42 U/L (test code = 1742-6) [facility] or plasma protein measurement (mass/volume)2020-03-31 11:50:00 Test Item Value Reference Range Interpretation Comments Total Protein (test code = 2885-2) 7.5 g/dL [facility] or plasma albumin measurement (mass/volume)2020-03-31 11:50:00 Test Item Value Reference Range Interpretation Comments Albumin (test code = 1751-7) 4.0 g/dL [facility] globulin measurement by calculation (mass/volume)2020-03-31 11:50:00 Test Item Value Reference Range Interpretation Comments Globulin (test code = 61636-4) 3.5 g/dL [facility] albumin/globulin mass ratio 2020-03-31 11:50:00 Test Item Value Reference Range Interpretation Comments Albumin/Globulin Ratio (test code = 1.1 1759-0) [facility] or plasma alkaline phosphatase measurement (enzymatic activity/volume)2020-03-31 11:50:00 Test Item Value Reference Range Interpretation Comments Alkaline Phosphatase (test code = 71 U/L 6768-6) [facility] or plasma lipase measurement (enzymatic activity/volume)2020-03-31 11:50:00 Test Item Value Reference Range Interpretation Comments Lipase (test code = 3040-3) 299 U/L [facility] specimen collection method 2020-03-31 02:48:00 Test Item Value Reference Range Interpretation Comments Urine Source (test code = 77426-4) URINE [facility] color [id number] 02:48:00 Test Item Value Reference Range Interpretation Comments Urine Color (test code = 5778-6) Yellow [facility] clarity [id number] 02:48:00 Test Item Value Reference Range Interpretation Comments Urine Appearance (test code = 02166-9) Clear [facility] pH measurement by automated test strip 2020-03-31 02:48:00 Test Item Value Reference Range Interpretation Comments Urine pH (test code = 93362-6) 5.0 [facility] Urine by Automated test [id number] 02:48:00 Test Item Value Reference Range Interpretation Comments Urine Specific [place] (test code = 1.020 17699-3) [facility] protein measurement by automated test strip (mass/volume)2020-03-31 02:48:00 Test Item Value Reference Range Interpretation Comments Urine Protein (test code = 33098-0) 100 mg/dL [facility] glucose measurement by automated test strip (mass/volume)2020-03-31 02:48:00 Test Item Value Reference Range Interpretation Comments Urine Glucose (UA) (test code Negative mg/dL = 21452-1) [facility] ketones measurement by automated test strip (mass/volume)2020-03-31 02:48:00 Test Item Value Reference Range Interpretation Comments Urine Ketones (test code = 84305-7) 15 mg/dL [facility] erythrocytes count by automated test strip (number/volume)2020-03-31 02:48:00 Test Item Value Reference Range Interpretation Comments Urine Occult Blood (test Negative {Butch}/uL code = 45322-0) [facility] nitrite detection by automated test [id number] 02:48:00 Test Item Value Reference Range Interpretation Comments Urine Nitrite (test code = 59633-0) Negative [facility] total bilirubin measurement by automated test strip (mass/volume)2020-03-31 02:48:00 Test Item Value Reference Range Interpretation Comments Urine Bilirubin (test code = 25056-5) 1 mg/dL [facility] bilirubin measurement 2020-03-31 02:48:00 Test Item Value Reference Range Interpretation Comments Urine Ictotest (test code = 74554-9) Positive [facility] urobilinogen measurement by automated test strip (mass/volume)2020-03-31 02:48:00 Test Item Value Reference Range Interpretation Comments Urine Urobilinogen (test code = 4.0 mg/dL 19171-6) [facility] leukocytes count by automated test strip (number/volume)2020-03-31 02:48:00 Test Item Value Reference Range Interpretation Comments Urine Leukocyte Esterase (test 25 {Zohaib}/uL code = 78493-6) [facility] examination of [id number] 02:48:00 Test Item Value Reference Range Interpretation Comments Microscopic Urinalysis (T) (test code = ----- 57021-8) [facility] sediment erythrocyte count by microscopy (number/high power field)2020-03-31 02:48:00 Test Item Value Reference Range Interpretation Comments Urine RBC (test code = None Seen /[HPF] 36105-7) [facility] sediment leukocyte count by microscopy (number/high power field)2020-03-31 02:48:00 Test Item Value Reference Range Interpretation Comments Urine WBC (test code = 5821-4) 0-5 /[HPF] [facility] sediment epithelial cell count by microscopy (number/high power field)2020-03-31 02:48:00 Test Item Value Reference Range Interpretation Comments Urine Epithelial Cells (test code Few /[HPF] = 5787-7) [facility] sediment crystal count by microscopy (number/high power field)2020-03-31 02:48:00 Test Item Value Reference Range Interpretation Comments Urine Crystals (test code = None Seen /[HPF] 71081-5) [facility] detection in urine sediment by light [id number] 02:48:00 Test Item Value Reference Range Interpretation Comments Urine Amorphous Sediment Moderate /[HPF] (test code = 8246-1) [facility] sediment bacteria count by microscopy (number/high power field)2020-03-31 02:48:00 Test Item Value Reference Range Interpretation Comments Urine Bacteria (test code = None Seen /[HPF] 5769-5) [facility] sediment casts count by microscopy (number/low power field)2020-03-31 02:48:00 Test Item Value Reference Range Interpretation Comments Urine Casts (test code = Present /[LPF] 9842-6) [facility] sediment hyaline cast count by microscopy (number/low power field)2020-03-31 02:48:00 Test Item Value Reference Range Interpretation Comments Urine Hyaline Casts (test code = 2-5 /[LPF] 5796-8) [facility] in urine sediment by microscopy (number/low power field )2020-03-31 02:48:00 Test Item Value Reference Range Interpretation Comments Urine Fine Granular Casts (test 6-10 /[LPF] code = 00496-7) [facility] detection in urine sediment by light [id number] 02:48:00 Test Item Value Reference Range Interpretation Comments Urine Yeast (test code = None Seen /[HPF] 52488-0) [facility] 02:[facility] Test Item Value Reference Range Interpretation Comments Urinalysis Comment (test code = 8262-8) * [facility] comment 02:48:00 Test Item Value Reference Range Interpretation Comments Urine Culture Indicated (test code = Not Ind 8264-4) [facility]
--- OUTSIDE RECORDS SUMMARY | 2020-06-16 22:00 | XMS REPORT | Continuity of Care Document ---
:1975 Author Organization [facility] HCIS Care Team Providers Name Role Phone [...] Site White Blood Count March 11.4 4.5-11.5 [facility], [facility] 2019 10*3/uL [facility] [address] 11:50am Red Blood Count March 4.25 4.4-6.2 [facility], [facility] 2019 10*6/uL [facility] 16094 11:50am Hemoglobin March 14.5 g/dL 13.0-17.5 [facility], [facility] 2019 [facility] [address]196 11:50am Hematocrit March 41.8 % 39.0-52.5 [facility], [facility] 2019 [place] [address] 11:50am Mean Corpuscular March 98.4 fL 80-94 Gallo per [facility], [facility] Volume 2019 [place] [address] 11:50am Mean Corpuscular March 34.1 pg 27.0-33.0 Gallo per [facility], [address] [place], [place] [address] Hemoglobin 2019 [place] [address] 11:50am Mean Corpuscular March 34.7 g/dL 33.0-37.0 Gallo per [facility], [facility] Hemoglobin Concent 2019 [place] [address] 11:50am Red Cell March 12.8 % 10.7-14.5 [facility], [facility] Distribution Width 2019 [place] [address] 11:50am Platelet Count March 105 150-450 [facility], [facility] 2019 10*3/u[place] [address] 11:50am Mean Platelet March 10.1 fL 5.7-10.7 [facility], [facility] Volume 2019 [place] [address] 11:50am Manual March ----- [facility], [facility] Differential 2019 [place] [address] 11:50am Neutrophils % March 61 % 42-75 [facility], [facility] (Manual) 2019 [place] [address] 11:50am Lymphocytes % March 23 % 21-51 [facility], [facility] (Manual) 2019 [place] [address] 11:50am Monocytes % March 14 % 1-9 [facility], [facility] (Manual) 2019 [place] [address] 11:50am Eosinophils % March 2 % 0-7 [facility], [facility] (Manual) 2019 [place] [address] 11:50am Platelet Estimate March Decreased [facility], [address] [place] [address] [employer] 2019 [place] [address] 11:50am Red Blood Cell March Normal [facility], [address] [place] [address] [employer] Morphology 2019 [place] [address] 11:50am Urine Source March URINE [facility], [address] [place] [address] [employer] 2019 [place] [address] 2:48am Urine Color March Yellow [facility], [address] [place] [address] [employer] 2019 * [place] [address] 2:48am Urine Appearance March Clear Clear * [facility], [address] [place] [address] [employer] 2019 [place] [address] 2:48am Urine pH March 5.0 5.0-8.0 [facility], [address] [place] [address] [employer] [address] [place] [address] 2:48am Urine Specific March 1.020 1.005-1.03 [facility], [address] [place] [address] [employer] [place] 2019 0 [place] [address] 2:48am Urine Protein March 100 mg/dL Negative * [facility], [address] [place] [address] [employer] 2019 [place] [address] 2:48am Urine Glucose (UA) March Negative Negative * [facility], [address] [place] [address] T[employer]ol[employer]tec 2019 mg/[place] [address] 2:48am Urine Ketones March 15 mg/dL Negative * [facility], [address] [place] [address] [employer] [address] [place] [address] 2:48am Urine Occult Blood March Negative Negative * [facility], [address] [place] [address] [employer] 2019 {Butch}/[place] [address] 2:48am Urine Nitrite March Negative Negative [facility], [address] [place] [address] [employer] [address] [place] [address] 2:48am Urine Bilirubin March 1 mg/dL Negative [facility], [address] [place] [address] [employer] 2019 [place] [address] 2:48am Urine Ictotest March Positive Negative ICTO POS [facility], [address] [place] [address] [employer] 2019 [place] [address] 2:48am Urine Urobilinogen March 4.0 mg/dL 0.0-1.0 [facility], [facility] 2019 [place] [address] 2:48am Urine Leukocyte April 20 Negative [facility], [address] [place], [place] [address] Esterase 2019 {Zohaib}/[place] [address] 2:48am Microscopic March ----- [facility], [address] [place] [address] [employer] Urinalysis (T) 2019 [place] [address] 2:48am Urine RBC March None Seen 0-2 [facility], [address] [place], [place] [address] 2019 /[HPF] [place] [address] 2:48am Urine WBC March 0-5 /[HPF] 0-5 [facility], [address] [place], [place] [address] 2019 [place] [address] 2:48am Urine Epithelial March Few /[HPF] Few [facility], [address] [place] [address] [employer] Cells 2019 [place] [address] 2:48am Urine Crystals March None Seen None * [facility], [facility] 2019 /[HPF] [place] [address] 2:48am Urine Amorphous March Moderate None * [facility], [facility] Sediment 2019 /[HPF] [place] [address] 2:48am Urine Bacteria March None Seen None [facility], [facility] 2019 /[HPF] [place] [address] 2:48am Urine Casts March Present None * Last [facility], [facility] 2019 /[LPF] [place] [address] 2:48am Urine Hyaline March 2-5 /[LPF] 0-1 [facility], [facility] Casts 2019 [place] [address] 2:48am Urine Fine March 6-10 None * [facility], [facility] Granular Casts 2019 /[LPF] [place] [address] 2:48am Urine Yeast March None Seen None Last [facility], [facility] 2019 /[HPF] [place] [address] 2:48am Urinalysis Comment March * * Ref Range = [facility], [facility] 2019 * Clinical [place] [address] 2:48am evaluation required. Urine Culture March Not Ind [facility], [facility] Indicated 2019 [place] [address] 2:48am Sodium Level March 135 mmol/L 136-145 [facility], [facility] 2019 [place] [address] 11:50am Potassium Level March 3.7 mmol/L 3.5-5.1 [facility], [facility] 2019 [place] [address] 11:50am Chloride Level March 102 mmol/L 98-107 [facility], [facility] 2019 [place] [address] 11:50am Carbon Dioxide March 19 mmol/L 22-29 [facility], [facility] Level 2019 [facility] [address] 11:50am Anion Gap March 18 8-18 [facility], [facility] 2019 [place] [address] 11:50am Blood Urea March 11 mg/dL 9-21 [facility], [facility] Nitrogen 2019 [place] [address] 11:50am Creatinine March 1.8 mg/dL 0.7-1.3 [facility], [facility] 2019 [facility] [place] [address] 11:50am Estimat Glomerular March 44 73-125 [facility], [facility] Filtration Rate 2019 [facility] [place] [address] 11:50am Patients with Estimated GFR Known Kidney [...] result provided by 1.21. BUN/Creatinine March 6 [facility], [address] [place] [address] Ratio 2019 [place] [address] 11:50am Glucose Level March 98 mg/dL 60-100 [facility], [address] [place] [address] 2019 [place] [address] 11:50am Calculated March 269 [facility], [address] [place] [address] Osmolality 2019 mosm/[place] [address] 11:50am Calcium Level March 7.8 mg/dL 8.4-10.2 [facility], [address] [place] [address] 2019 [facility] [place] [address] 11:50am Total Bilirubin March 0.8 mg/dL 0.2-1.2 [facility], [address] [place] [address] 2019 [place] [address] 11:50am Direct Bilirubin March 0.4 mg/dL 0.0-0.5 [facility], [address] [place] [address] 2019 [place] [address] 11:50am Aspartate Amino March 67 U/L 5-34 [facility], [address] [place] [address] Transf (AST/SGOT) 2019 [place] [address] 11:50am Alanine March 42 U/L 0-55 [facility], [address] [place] [address] Aminotransferase 2019 [place] [address] (ALT/SGPT) 11:50am Total Protein March 7.5 g/dL 6.4-8.3 [facility], [address] [place] [address] 2019 [place] [address] 11:50am Albumin March 4.0 g/dL 3.5-5.0 [facility], [address] [place] [address] 2019 [place] [address] 11:50am Globulin March 3.5 g/dL [facility], [address] [place] [address] 2019 [place] [address] 11:50am Albumin/Globulin March 1.1 [facility], [address] [place] [address] [facility] Ratio 2019 [place] [address] 11:50am Alkaline March 71 U/L 40-150 [facility], [address] [place] [address] Phosphatase 2019 [place] [address] 11:50am Lipase March 299 U/L 8-78 [facility], [address] [place] [address] [facility] 2019 [place] [address] 11:50am Bedside Sodium March 136 mmol/L 136-145 [facility], [address] [place] [address] [facility] 2019 [place] [address] 12:15am Bedside Potassium March 3.8 mmol/L 3.5-5.1 [facility], [address] [place] [address] [facility] 2019 [place] [address] 12:15am Bedside Chloride March 101 mmol/L 100-112 [facility], [address] [place] [address] [facility] 2019 [place] [address] 12:15am Bedside Total CO2 March 23.0 24.0-33.0 [facility], [address] [place] [address] [facility] mmol/[place] [address] 12:15am Bedside Blood Urea March 12 mg/dL 6-20 [facility], [address] [place] [address] [facility] Nitrogen 2019 [place] [address] 12:15am Bedside Creatinine March 2.1 mg/dL 0.9-1.5 [facility], [address] [place] [address] [facility] 2019 [place] [address] 12:15am Bedside Glucose March 99 mg/dL 60-100 [facility], [address] [place] [address] [facility] 2019 [place] [address] 12:15am Bedside Whole March 0.99 1.12-1.32 [facility], [address] [place] [address] [facility] Blood Ionized 2019 mmol/[place] [address] Calcium 12:15am Bedside Anion Gap March 17 8-18 [facility], [address] [place] [address] [facility] 2019 [place] [address] 12:15am Estimat Glomerular March 37 73-125 [facility], [address] [place] [address] [facility] Filtration Rate 2019 [facility] [place] [facility] [place] [address] 12:15am Patients with Estimated GFR Known Kidney [...] 1.21. Bedside Hemoglobin March 13.9 g/dL 13.0-17.5 [facility], [facility] [facility] 2019 [place] [address] 12:15am Bedside Hematocrit March 41.0 % 40.0-53.0 [facility], [facility] [facility] 2019 [place] [address] 12:15am Bedside Lactic March 1.74 0.50-2.20 [facility], [facility] Acid Venous 2019 mmol/[place] [facility] [place] [address] 12:10am Diagnostic Imaging Reports Report Dictated Date/Time [...] Chief Complaint Abdominal Pain Reason for Visit [id number] Encounters Encounter Location(s) Arrival/Admit Date Discharge/Depart Date Provider(s) Departed [facility] March 31, 2020 April 01, 2020 [facility] 11:29pm 4:32am Assessments No Assessments Information Available Functional Status No Functional Status information available Goals Goals may be documented in an alternate section. Immunizations No Immunization Information Available Mental Status No Mental Status Information Available Medical Equipment No Medical Equipment Information available Insurance Providers Guarantor Sung Brown Address [address] [facility] [address] Contact Info. Home Phone: Payer Policy Id Coverage Id Subscriber's Subscriber Id Effective E xpiration Name Date Date [place] [id number] Sung Brown [id number] September b Oskar 2019 Medicare [id number] Sung Brown [id number] 2003 Plan of Treatment As we discussed [...] local primary care providers please see below: [facility] Address: [address] [address] Appointments: [facility] Address: [address] [place] [address] [facility]: [facility] 234 beds at the [facility] [place] Address: [address] [place] [address] For orthopedic injuries: [facility] Address: [address] [place] [address] Hours: Opens 8AM For mental health [facility] [place] Address: [address], [place] [address] Hours: Opens 8AM [facility] Future [...]
[2020-06-16 22:38] LABS: Absolute Lymphocytes (CBC) 2.4 K/uL (0.7-4.9); Basophils % 0.7 % (0-1.3); Hematocrit 44.7 % (39.6-49.0); Lymphocytes % 21.5 % (15.3-44.8); MPV 7.7 fL (7.6-11.3); RBC Red Blood Cell Count 4.52 M/uL (4.33-5.43)
[2020-06-16 22:39] LABS: Protime INR 1.12
[2020-06-16] MEDS ORDERED: ONDANSETRON 4 MG/2 ML VIAL ONE (22:43)
[2020-06-16] MEDS ORDERED: MORPHINE 4 MG/ML SYR ONE (22:43)
[2020-06-16 22:59] LABS: ALT/SGPT 53 U/L (12-78); AST/SGOT 110 U/L (15-37); Albumin 3.3 g/dL (3.4-5.0); Alkaline Phosphatase 134 U/L (45-117); BUN Blood Urea Nitrogen 4 mg/dL (7-18); Bicarbonate 24 mmol/L (21-32); Bilirubin Direct 0.6 mg/dL (0-0.2); Bilirubin Total 0.9 mg/dL (0.2-1.0); Glucose Level 107 mg/dL (74-106); Lipase 1078 U/L (73-393); Potassium 3.4 mmol/L (3.5-5.1); Protein, Total 8.8 g/dL (6.4-8.2); Sodium Level 139 mmol/L (136-145); Troponin (Emerg Dept Use Only) < 0.02 ng/mL (0.0-0.045)
[2020-06-16] MEDS ORDERED: HYDROMORPHONE HCL 1 MG/ML INJ ONE (23:39)
--- NOTE | 2020-06-17 00:46 | ER ---
Nurse's Notes [facility] Name: Sung Brown Jr Age: 44 yrs Sex: Male : 1975 Arrival Date: 06/16/2020 Time: 21:59 Bed 18 Private MD: Jennifer Pope Diagnosis: Generalized abdominal pain Presentation: 06/16 22:12 Chief complaint: Patient states: he had his gallbladder removed approx [address] bb Dr Little who told him he had stage IV liver disease and would refer him for a liver transplant tonight his abdominal pain increased now is 06/05. Coronavirus screen: At this time, the client does not indicate any symptoms associated with coronavirus-19. Ebola Screen: No symptoms or risks identified at this time. Initial Sepsis Screen: Does the patient meet any 2 criteria? No. Patient's initial sepsis screen is negative. Does the patient have a suspected source of infection? No. Patient's initial sepsis screen is negative. Risk Assessment: Do you want to hurt yourself or someone else? Patient reports no desire to harm self or others. Onset of symptoms was June 16, 2020. 22:12 Method Of Arrival: Ambulatory bb 22:12 Acuity: CINTIA 2 bb Historical: - Allergies: 22:21 NKDA; bb - Home Meds: 22:21 Albuterol Inhl [Active]; Symbicort inhalation [Active]; fluoxetine 20 mg Oral cap 1 cap bb once daily [Active]; gabapentin 300 mg oral cap 1 cap 3 times per day [Active]; lorazepam 1 mg Oral tab once daily [Active]; Cozaar 50 mg Oral tab 1 tab once daily [Active]; omeprazole 40 mg Oral cpDR 1 cap once daily [Active]; chlordiazepoxide HCl 10 mg Oral cap 1 cap 3 times per day [Active]; hydrocodone-acetaminophen 5-325 mg Oral tab 1 tab every 6 hours [Active]; thiamine HCl (vitamin B1) 100 mg Oral tab [Active]; carvedilol 25 mg oral tab 1 tab daily [Active]; - PMHx: 22:21 ADD/ADHD; COPD; Hepatitis; Hypertension; WPW; bb - PSHx: 22:21 Cholecystectomy; multiple ortho procedures; bb - Immunization history:: Adult Immunizations up to date. - Social history:: Smoking status: Patient reports the use of cigarette tobacco products, smokes one pack cigarettes per day. Patient uses alcohol, patient/guardian reports chronic longstanding heavy alcohol consumption. Screenin:20 Abuse screen: Denies threats or abuse. Nutritional screening: No deficits noted. ll2 Tuberculosis screening: No symptoms or risk factors identified. Fall Risk None identified. Assessment: 22:19 General: Appears in no apparent distress. Behavior is calm, cooperative, appropriate ll2 for age. Pain: Complains of pain in chest. Neuro: Level of Consciousness is awake, alert, obeys commands, Oriented to person, place, time, situation. Cardiovascular: Capillary refill < 3 seconds Patient's skin is warm and dry. Respiratory: Airway is patent Respiratory effort is even, unlabored, Respiratory pattern is regular, symmetrical. GI: Bowel sounds present X 4 quads. Abd is soft and non tender. : No signs and/or symptoms were reported regarding the genitourinary system. EENT: No signs and/or symptoms were reported regarding the EENT system. Derm: Skin is intact, is healthy with good turgor, Skin is dry, Skin is pink, warm \T\ dry. Skin temperature is warm. Musculoskeletal: Circulation, motion, and sensation intact. Range of motion: intact in all extremities. 23:31 Reassessment: Patient and/or family updated on plan of care and expected duration. Pain ll2 level reassessed. Patient is alert, oriented x 3, equal unlabored respirations, skin warm/dry/pink. 06/17 00:06 Reassessment: Patient and/or family updated on plan of care and expected duration. Pain ll2 level reassessed. 00:39 Reassessment: Patient and/or family updated on plan of care and expected duration. Pain ll2 level reassessed. Patient is alert, oriented x 3, equal unlabored respirations, skin warm/dry/pink. 01:18 Reassessment: Patient and/or family updated on plan of care and expected duration. Pain ll2 level reassessed. Patient is alert, oriented x 3, equal unlabored respirations, skin warm/dry/pink. 01:40 Reassessment: Patient and/or family updated on plan of care and expected duration. Pain ea level reassessed. Patient is alert, oriented x 3, equal unlabored respirations, skin warm/dry/pink. Report called to receiving nurse on second floor. Vital Signs: 06/16 22:12 BP 157 / 91; Pulse 103; Resp 16 S; Temp 98.2(O); Pulse Ox 94% on R/A; Weight 113.4 kg bb (R); Height 5 ft. 10 in. (177.80 cm) (R); Pain 10; 22:35 BP 148 / 80; Pulse 97; Resp 14; Pulse Ox 94% on R/A; ll2 23:31 BP 125 / 69; Pulse 89; Resp 12; Pulse Ox 94% on R/A; ll2 06/17 01:41 BP 157 / 97; Pulse 80; Resp 18; Temp 98; Pulse Ox 98% ; ea 06/16 22:12 Body Mass Index 35.87 (113.40 kg, 177.80 cm) bb ED Course: 06/16 21:59 Patient arrived in ED. am2 21:59 Jennifer Pope FNP-C is Private Physician. am2 22:03 [facility]lig[facility] Mendez [facility] 22:03 Anthony Andersen MD is Attending Physician. [facility] 22:10 Roxanne Valladares, VIMAL is Primary Nurse. ll2 22:15 Triage completed. bb 22:21 Arm band placed on Patient placed in an exam room, on a stretcher, on panel monitor, bb on pulse oximetry. 22:30 Inserted saline lock: 20 gauge in right forearm, using aseptic technique. Blood ea collected. 23:53 CT Abd/Pelvis - IV Contrast Only In Process Unspecified. EDMS 06/17 00:45 Chris Little MD is Hospitalizing Provider. [facility] 01:40 No provider procedures requiring assistance completed. Patient admitted, IV remains in ea place. Administered Medications: 06/16 22:34 Drug: morphine 4 mg Route: IVP; Site: right forearm; ll2 23:13 Follow up: Response: No adverse reaction; Pain is unchanged, physician notified; RASS: ll2 Alert and Calm (0) 22:35 Drug: Zofran (Ondansetron) 4 mg Route: IVP; Site: right forearm; ll2 22:35 Follow up: Response: No adverse reaction ll2 23:28 Drug: Dilaudid 1 mg Route: IVP; Site: right forearm; ll2 06/17 00:40 Follow up: Response: No adverse reaction ll2 00:57 Drug: Dilaudid 1 mg Route: IVP; Site: right forearm; ll2 01:00 Follow up: Response: No adverse reaction ll2 01:15 Drug: NS 0.9% 3000 ml Route: IV; Rate: 1 bolus; Site: right forearm; ll2 01:49 Follow up: Response: No adverse reaction ll2 01:15 Drug: Valium 5 mg Route: IVP; Site: right forearm; ll2 01:48 Follow up: Response: No adverse reaction ll2 01:18 Drug: Zosyn 3.375 grams Route: IVPB; Infused Over: 60 mins; Site: right forearm; ll2 Outcome: 00:45 Decision to Hospitalize by Provider. sanjay 01:40 Admitted to Med/surg accompanied by tech, room 225, with chart, Report called to ea Receiving nurse on second floor 01:40 Condition: stable 01:40 Instructed on the need for admit. 01:49 Patient left the ED. ea Signatures: Dispatcher [employer] EDMS Eligio Mendez PA PA jmm Ballard, Brenda, RN RN Rufina Valero Elena RN RN Roxanne Bowman RN RN ll2
--- NOTE | 2020-06-17 00:46 | EDPHYS ---
Physician Documentation [facility] Name: Sung Brown Jr Age: 44 yrs Sex: Male : 1975 Arrival Date: 06/16/2020 Time: 21:59 Bed 18 Private MD: Jennifer Pope ED Physician Anthony Andersen HPI: 06/16 22:14 This 44 yrs old Male presents to ER via Unassigned with complaints of jmm Abdominal Pain, Chest Pain. 22:14 The patient presents with abdominal pain in the epigastric area. Onset: The jmm symptoms/episode began/occurred today. The symptoms do not radiate. Associated signs and symptoms: Pertinent negatives: diarrhea, vomiting. Modifying factors: The symptoms are alleviated by nothing, the symptoms are aggravated by nothing. This is a 44 year old male with a history of liver cirrhosis, recent cholecystectomy that presents to the ED with complaints of generalized abdominal pain. Patient states he was referred by Dr. Little for liver failure. Patient states he drinks ETOH daily but has only had 1 beer today. . Historical: - Allergies: 22:21 NKDA; bb - Home Meds: 22:21 Albuterol Inhl [Active]; Symbicort inhalation [Active]; fluoxetine 20 mg Oral cap 1 cap bb once daily [Active]; gabapentin 300 mg oral cap 1 cap 3 times per day [Active]; lorazepam 1 mg Oral tab once daily [Active]; Cozaar 50 mg Oral tab 1 tab once daily [Active]; omeprazole 40 mg Oral cpDR 1 cap once daily [Active]; chlordiazepoxide HCl 10 mg Oral cap 1 cap 3 times per day [Active]; hydrocodone-acetaminophen 5-325 mg Oral tab 1 tab every 6 hours [Active]; thiamine HCl (vitamin B1) 100 mg Oral tab [Active]; carvedilol 25 mg oral tab 1 tab daily [Active]; - PMHx: 22:21 ADD/ADHD; COPD; Hepatitis; Hypertension; WPW; bb - PSHx: 22:21 Cholecystectomy; multiple ortho procedures; bb - Immunization history:: Adult Immunizations up to date. - Social history:: Smoking status: Patient reports the use of cigarette tobacco products, smokes one pack cigarettes per day. Patient uses alcohol, patient/guardian reports chronic longstanding heavy alcohol consumption. ROS: 22:14 Constitutional: Negative for fever, chills, and weight loss. [facility] 22:14 Cardiovascular: Positive for chest pain. 22:14 Respiratory: 22:14 Abdomen/GI: Positive for abdominal pain. 22:14 All other systems are negative. Exam: 22:14 Constitutional: This is a well developed, well nourished patient who is awake, alert, jmm and in no acute distress. Head/Face: atraumatic. Eyes: EOMI, no conjunctival erythema appreciated ENT: Moist Mucus Membranes Neck: Trachea midline, Supple Chest/axilla: Normal chest wall appearance and motion. Cardiovascular: Regular rate and rhythm. No edema appreciated Respiratory: Normal respirations, no respiratory distress appreciated 22:14 Abdomen/GI: Inspection: abdomen appears normal, Bowel sounds: normal, Palpation: soft, moderate abdominal tenderness, in all quadrants, mild distension with ecchymosis noted to the abdomen. 22:14 Back: ROM is normal. 22:14 Musculoskeletal/extremity: ROM: intact in all extremities. 22:14 Skin: Appearance: Color: normal in color, ecchymosis noted to the abdomen. 22:14 Neuro: Orientation: is normal, Mentation: is normal, Memory: is normal. 22:14 Psych: Behavior/mood is pleasant, cooperative. 22:18 ECG was reviewed by the Attending Physician. [facility] Vital Signs: 22:12 BP 157 / 91; Pulse 103; Resp 16 S; Temp 98.2(O); Pulse Ox 94% on R/A; Weight 113.4 kg bb (R); Height 5 ft. 10 in. (177.80 cm) (R); Pain 06/05; 22:35 BP 148 / 80; Pulse 97; Resp 14; Pulse Ox 94% on R/A; ll2 23:31 BP 125 / 69; Pulse 89; Resp 12; Pulse Ox 94% on R/A; ll2 06/17 01:41 BP 157 / 97; Pulse 80; Resp 18; Temp 98; Pulse Ox 98% ; ea 06/16 22:12 Body Mass Index 35.87 (113.40 kg, 177.80 cm) bb MDM: 06/16 22:05 Patient medically screened. [facility] 06/17 00:44 Data reviewed: vital signs, nurses notes. Counseling: I had a detailed discussion with [facility] the patient and/or guardian regarding: the historical points, exam findings, and any diagnostic results supporting the discharge/admit diagnosis, radiology results, the need for further work-up and treatment in the hospital. ED course: I discussed the patient with Dr. Little recommended HIDA scan and MRCP. Will cover with abx. . 06/16 22:07 Order name: Basic Metabolic Panel; Complete Time: 23:06 [facility] 06/16 22:07 Order name: CBC with Diff; Complete Time: 22:43 [facility] 06/16 22:07 Order name: Hepatic Function; Complete Time: 23:06 [facility] 06/16 22:07 Order name: Lipase; Complete Time: 23:06 [facility] 06/16 22:07 Order name: Troponin (emerg Dept Use Only); Complete Time: 23:06 [facility] 06/16 22:11 Order name: PT-INR; Complete Time: 22:47 [facility] 06/16 22:11 Order name: CT Abd/Pelvis - IV Contrast Only [facility] 06/17 01:30 Order name: COVID-19 ea 06/16 22:07 Order name: IV Saline Lock; Complete Time: 00:23 [facility] 06/16 22:07 Order name: Labs collected and sent; Complete Time: 00:23 [facility] 06/16 22:07 Order name: EKG - Nurse/Tech; Complete Time: 22:19 jm EC/21 22:18 Rate is 95 beats/min. Rhythm is regular. QRS [place] is Normal. VA interval is normal. QRS jmm interval is normal. QT interval is normal. No Q waves. T waves are Normal. No ST changes noted. Reviewed by me. Administered Medications: 22:34 Drug: morphine 4 mg Route: IVP; Site: right forearm; ll2 23:13 Follow up: Response: No adverse reaction; Pain is unchanged, physician notified; RASS: ll2 Alert and Calm (0) 22:35 Drug: Zofran (Ondansetron) 4 mg Route: IVP; Site: right forearm; ll2 22:35 Follow up: Response: No adverse reaction ll2 23:28 Drug: Dilaudid 1 mg Route: IVP; Site: right forearm; ll2 06/17 00:40 Follow up: Response: No adverse reaction ll2 00:57 Drug: Dilaudid 1 mg Route: IVP; Site: right forearm; ll2 01:00 Follow up: Response: No adverse reaction ll2 01:15 Drug: NS 0.9% 3000 ml Route: IV; Rate: 1 bolus; Site: right forearm; ll2 01:49 Follow up: Response: No adverse reaction ll2 01:15 Drug: Valium 5 mg Route: IVP; Site: right forearm; ll2 01:48 Follow up: Response: No adverse reaction ll2 01:18 Drug: Zosyn 3.375 grams Route: IVPB; Infused Over: 60 mins; Site: right forearm; ll2 Disposition: 03:21 Co-signature as Attending Physician, Anthony Andersen MD. rn Disposition: 06/17/20 00:45 Hospitalization ordered by Chris Little for Observation. Preliminary diagnosis is Generalized abdominal pain. - Bed requested for Telemetry/MedSurg (observation). - Status is Observation. ea - Condition is Stable. - Problem is new. - Symptoms are unchanged. Signatures: Dispatcher [employer] EDMS Eligio Mendez PA PA Sari Mock, RN Anthony Guzman MD MD rn Lasagna, Tonya, RN RN tl1 Indu Enriquez RN VIMAL ea Roxanne Valladares, RN RN ll2 Corrections: (The following items were deleted from the chart) 01:04 00:45 Hospitalization Ordered by Chris Little MD for Observation. Preliminary tl1 diagnosis is Generalized abdominal pain. Bed requested for Telemetry/MedSurg (observation). Status is Observation. Condition is Stable. Problem is new. Symptoms are unchanged. sanjay :49 01:04 06/17/2020 00:45 Hospitalization Ordered by Chris Little MD for Observation. ea Preliminary diagnosis is Generalized abdominal pain. Bed requested for Telemetry/MedSurg (observation). Status is Observation. Condition is Stable. Problem is new. Symptoms are unchanged. tl1
[2020-06-17] MEDS ORDERED: ACETAMINOPHEN 500 MG TAB PO PRN (00:48)
[2020-06-17] MEDS ORDERED: ONDANSETRON 4 MG/2 ML VIAL IV PRN (00:48)
[2020-06-17] MEDS ORDERED: HYDROMORPHONE HCL 1 MG/ML INJ ONE (00:58)
[2020-06-17] MEDS ORDERED: PIPER/TAZO/NS 3.375gm 3.375 GM/100 ML BAG ONE (00:59)
[2020-06-17] MEDS: PIPER/TAZO/NS 3.375gm 3.375 GM/100 ML BAG IVPB SCH ×3 (01:00→16:18)
[2020-06-17] MEDS: D5 0.45 NS 1,000 ML IV SCH ×4 (01:00→16:17)
[2020-06-17] MEDS ORDERED: DIAZEPAM 10 MG/2 ML INJ SYRINGE ONE (01:15)
[2020-06-17] MEDS ORDERED: NA CHLORIDE 0.9% 3,000 ML ONE (01:16)
[2020-06-17 02:46] VITALS: BMI 33.8
[2020-06-17] MEDS: HYDROMORPHONE HCL 1 MG/ML INJ IV PRN ×7 (03:00→20:17)
[2020-06-17] MEDS: DIAZEPAM 10 MG/2 ML INJ SYRINGE IV SCH ×2 (05:25→11:16)
--- NOTE | 2020-06-17 09:07 | RAD REPORT ---
EXAM DESCRIPTION: NM - Hepatobiliary System Imagin - 06/17/2020 9:00 am CLINICAL HISTORY: Abdominal pain TECHNIQUE: The patient was administered 6.1 millicuries technetium Choletec intravenous and images o f the abdomen obtained for 57 minutes FINDINGS: Liver demonstrates prompt radiotracer uptake. Activity is seen within the common bile duct, duodenum and small bowel A cholecystectomy has been performed No extravasation of radiotracer visualized IMPRESSION: No extravasation of radiotracer visualized
--- NOTE | 2020-06-17 10:54 | RAD REPORT ---
EXAM DESCRIPTION: CT - Abdomen Pelvis W Contrast - 06/17/2020 6:54 am CLINICAL HISTORY: 44 years Male ABD PAIN COMPARISON: Prior study dated June 02, 2020. TECHNIQUE: Images were obtained in axial, sagittal, and coronal planes. Intravenous contrast was adm inistered. This exam was performed according to our departmental dose-optimization program which includes use of Automated Exposure Control, adjustment of the mA and/or kV according to patient size and/or use o f iterative reconstruction technique. FINDINGS: There has been interval cholecystectomy. Surgical clips are now identified within the port al region. Abnormal soft tissue attenuation is identified contiguous with the surgical clips. The fin ding measures 6.4 x 4.4 x 4.0 cm. The finding also measures 55 Hounsfield units. The common bile duct is mildly dilated distally measuring 1.2 cm. The common bile duct is normal in caliber at the level of the head of the pancreas. Nodular hepatic contour suggesting cirrhotic change. Spleen is enlarged measuring 15.8 cm in anterior posterior dimension. Unremarkable pancreas and adrenal glands bilaterally. No obstructing renal or ureteral calculi bilaterally. No hydronephrosis bilaterally. Unremarkable julisa dder. Appendix within normal limits. No bowel obstruction, perforation, or inflammation. No acute osseous abnormality. No dilatation of the abdominal aorta. Unremarkable portal vein. No adenopathy. No abnormality lower lungs bilaterally. IMPRESSION: Interval cholecystectomy. Abnormal 8.9 cm complex fluid collection within the portal reg ion in region of surgical clips. The finding may be related to residual blood products and hematoma f ollowing recent surgery however however bile leak or developing inflammatory process not excluded. Co rrelation with radio isotope hepatobiliary scan is suggested for further characterization. Mildly dilated common bile duct. Common bile duct normal in caliber level of head of pancreas. Consid er correlation with MRCP to entirely excluded choledocholithiasis or stricture. Cirrhotic change involving the liver. Enlarged spleen. Electronically signed by: Tracey Riddle MD 06/17/2020 12:30 AM CDT Due to temporary technical issues with the PACS/Fluency reporting system, reports are being signed by the in house radiologist without review as a courtesy to ensure prompt reporting. The interpreting r adiologist is fully responsible for the content of the report.
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
--- NOTE | 2020-06-17 17:05 | P.PN ---
Date of Service: 06/17/20 S: The patient will more comfortable a, still complaining of some abdominal pain. More concerned about getting some food. States that he cannot undergo an MRCP as he suffers severe anxiety and PTSD in the MRI machine. O: Vital signs remain stable, patient looks well A: Patient had a scan was negative, there is no evidence of any bile leak. There is flow contrast into the duodenum. I do not feel that there is any common bile duct stones left behind. The patient is anxious to eat, and have something to drink. I will console the hospitalist regarding a whole withdrawal protocol. PE: Stable eyes patient, repeat lab work in the a.m.. Will work with the hospitalist to prevent any alcohol withdrawal. We will also try and provide him with a list of inpatient rehab facilities locally as well as helping him getting contact with the liver specialist in [place]
[2020-06-17] MEDS: DIAZEPAM 5 MG TABLET PO SCH (17:37)
[2020-06-17 23:09] VITALS: O2SAT 97
[2020-06-18] MEDS: DIAZEPAM 5 MG TABLET PO SCH ×2 (00:05→08:24)
[2020-06-18] MEDS: PIPER/TAZO/NS 3.375gm 3.375 GM/100 ML BAG IVPB SCH ×2 (00:05→09:00)
[2020-06-18] MEDS: D5 0.45 NS 1,000 ML IV SCH ×2 (00:10→09:00)
[2020-06-18] MEDS: HYDROMORPHONE HCL 1 MG/ML INJ IV PRN ×2 (02:20→06:15)
[2020-06-18 06:08] LABS: Absolute Lymphocytes (CBC) 1.5 K/uL (0.7-4.9); Basophils % 0.4 % (0-1.3); Lymphocytes % 28.2 % (15.3-44.8); RBC Red Blood Cell Count 3.78 M/uL (4.33-5.43)
[2020-06-18 06:18] LABS: ALT/SGPT 52 U/L (12-78); AST/SGOT 85 U/L (15-37); Albumin 2.8 g/dL (3.4-5.0); Alkaline Phosphatase 145 U/L (45-117); BUN Blood Urea Nitrogen 7 mg/dL (7-18); Bicarbonate 28 mmol/L (21-32); Bilirubin Direct 0.8 mg/dL (0-0.2); Bilirubin Total 1.6 mg/dL (0.2-1.0); Glucose Level 109 mg/dL (74-106); Lipase 885 U/L (73-393); Potassium 3.6 mmol/L (3.5-5.1); Protein, Total 7.2 g/dL (6.4-8.2); Sodium Level 136 mmol/L (136-145)
[2020-06-18 08:17] LABS: Blood Morphology Comment NOT SEEN (NOT SEEN); Platelet Estimate DECR; White Blood Cell Scan OK (OK)
[2020-06-18 11:17] VITALS: BP 128/91; TEMP 97.2
--- NOTE | 2020-06-18 13:53 | P.DS ---
Discharge Date: 06/18/20 Disposition: ROUTINE DISCHARGE Discharge Condition: GOOD Reason for Admission: Acute pancreatitis - Problems (1) Acute pancreatitis Status: Acute (2) Cholelithiasis Status: Acute Qualifiers: Cholecystitis presence: without cholecystitis (3) DTs (delirium tremens) Status: Acute (4) HTN (hypertension) Status: Acute (5) WPW (Rmifp-Iompluxki-Wovpt syndrome) Status: Acute Brief History of Present Illness: Patient is a 44-year-old gentleman who presented to the hospital with alcohol abuse in acute pancreatitis. Patient was having significant pain he came into the ER for evaluation. He was seen in the emergency room and found have acute pancreatitis secondary to alcohol abuse. He started drinking again when he was discharged on his last admission. He was warned that he has cirrhosis which was very severe. He has an issue with his alcohol abuse. He will be admitted for further evaluation. I was Consulted because he was having some tremors. It appears that he may have DTs. Patient will get started on benzodiazepines to assist in his detoxing. Will continue with management with surgical team. Hospital Course: Patient is clinically doing well. Patient is not wanting to stay in the hospital any longer. Patient was advised to stop drinking. Patient's lipase was still elevated but he denies having any significant pain. He states that he will stay on a low-fat diet. Hopefully, patient will comply. At this time, patient is stable for discharge home with outpatient follow-up. Vital Signs/Physical Exam: Temp Pulse Resp BP Pulse Ox 97.2 F 76 18 128/91 H 99 06/18/20 11:16 06/18/20 11:16 06/18/20 11:16 06/18/20 11:16 06/18/20 11:16 General: Alert, In no apparent distress, Oriented x3 Laboratory Data at Discharge: WBC 5.3 K/uL (4.3-10.9) D 06/18/20 05:20 Hgb 13.2 g/dL (13.6-17.9) L D 06/18/20 05:20 Hct 37.0 % (39.6-49.0) L D 06/18/20 05:20 Plt Count 95 K/uL (152-406) L D 06/18/20 05:20 PT 13.2 SECONDS (9.5-12.5) H 06/16/20 22:28 INR 1.12 06/16/20 22:28 Sodium 136 mmol/L (136-145) 06/18/20 05:20 Potassium 3.6 mmol/L (3.5-5.1) 06/18/20 05:20 BUN 7 mg/dL (7-18) 06/18/20 05:20 Creatinine 0.82 mg/dL (0.55-1.3) 06/18/20 05:20 Glucose 109 mg/dL (74-106) H 06/18/20 05:20 Total Bilirubin 1.6 mg/dL (0.2-1.0) H 06/18/20 05:20 AST 85 U/L (15-37) H 06/18/20 05:20 ALT 52 U/L (12-78) 06/18/20 05:20 Alkaline Phosphatase 145 U/L (45-117) H 06/18/20 05:20 Triglycerides 73 mg/dL (<150) 06/18/20 05:20 Cholesterol 142 mg/dL (<200) 06/18/20 05:20 HDL Cholesterol 50 mg/dL (40-60) 06/18/20 05:20 Cholesterol/HDL Ratio 2.84 06/18/20 05:20 Lipase 885 U/L (73-393) H 06/18/20 05:20 Home Medications: Albuterol Sulfate [Ventolin Hfa] 2 puff IN Q4H PRN 12/10/18 Budesonide/Formoterol Fumarate [Symbicort 160-4.5 Mcg Inhaler] 2 puff IN BID 12/10/18 Losartan Potassium [Cozaar*] 50 mg PO DAILY 12/10/18 carvediloL [Carvedilol] 25 mg PO DAILY 12/10/18 Fluoxetine HCl [Prozac*] 20 mg PO DAILY 06/02/20 Gabapentin 300 mg PO TID 06/02/20 Omeprazole [Prilosec] 40 mg PO DAILY 06/02/20 Thiamine HCl [Vitamin B-1*] 100 mg PO DAILY 06/02/20 Hydrocodone Bit/Acetaminophen [[place] 7.5-325 Tablet] 1 each PO Q12HP PRN #25 tablet 06/18/20 diazePAM [Valium*] 5 mg PO Q8H #35 tab 06/18/20 New Medications: Hydrocodone Bit/Acetaminophen [[place] 7.5-325 Tablet] 1 each PO Q12HP PRN #25 tablet PRN Reason: Pancreatic pain diazePAM [Valium*] 5 mg PO Q8H #35 tab Patient Discharge Instructions: -OK TO DC IV AND DC HOME. -FOLLOW-UP WITH PRIMARY CARE PROVIDER IN 1-2 WEEKS. -FOLLOW-UP WITH SURGEON in 1 week. - RETURN TO THE ER IF SYMPTOMS WORSEN. -CALL or TEXT DR. GUERRERO AT [phone] IF ANY QUESTIONS REGARDING HOSPITAL STAY. -PLEASE CALL THE FLOOR AT [phone] IF ANY MEDICATION OR NURSING QUESTIONS. Diet: low fat & refrain from alcohol Activity: Fall precautions Followup: Jennifer Pope [employer] [Primary Care Provider] - 1-2 Weeks (PCP- call to schedule an appointment ) Chris Little MD [ACTIVE - CAN ADMIT] - 1 Week (surgeon- call to schedule an appointment ) Time spent managing pt's care (in minutes): 35
== END 2020-06-18 13:04 | disposition home or self-care (01) | DRG 439 ==
LOC: ER 21:56 → ERHOLD 06-17 00:47 → 2ND 06-17 01:40 → OBSVTOIN 06-17 21:09
PROVIDERS: ADMIT Surgery; ATTEND Surgery
DX: K85.20 Alcohol induced acute pancreatitis without necrosis or infection (principal); F10.231 Alcohol dependence with withdrawal delirium; J44.9 Chronic obstructive pulmonary disease, unspecified; I10 Essential (primary) hypertension; F17.200 Nicotine dependence, unspecified, uncomplicated; I45.6 Pre-excitation syndrome; F43.10 Post-traumatic stress disorder, unspecified; F41.9 Anxiety disorder, unspecified; K70.30 Alcoholic cirrhosis of liver without ascites; Z79.891 Long term (current) use of opiate analgesic; Z79.899 Other long term (current) drug therapy; Z90.49 Acquired absence of other specified parts of digestive tract; Z79.51 Long term (current) use of inhaled steroids; Z20.828 Contact with and (suspected) exposure to other viral communicable diseases
CPT/HCPCS: 36415; 74177; 78226; 80048; 80061; 80076; 83690; 84484; 85025; 85610; 93005; 96374; 96375; 99285; A9537; G0378; J1170; J2405; J2543; J3360; J7030; J7799; Q9967; U0002

== ENCOUNTER 2020-07-05 05:00 | Emergency (ER) | payer OTHER ==
--- OUTSIDE RECORDS SUMMARY | 2020-07-05 05:03 | XMS REPORT | Continuity of Care Document ---
:1975 Author Organization [facility] t Address [address] [place] [address] Care Team Providers Name Role Phone FOUND, NOT Primary Care Physician Unavailable Advance Directives Directive Decision Effective Date Termination Date Comments Sour ce Yes N/A [facility]RISTUS - Gallo per [facility] bernie Problems Condition Condition Condition Status Onset Resolution Last Treating Co mments Source Name Details Category Date Date Treatment Clinician Date Problem Condition J[facility]ON [facility] GERD GERD Diagnosis Active [facility] (gastroeso (gastroeso Krista kes - phageal phageal Memoria reflux reflux l disease) disease) Outpat i ent Clinics Alcoholic Alcoholic Diagnosis Active [facility] fatty fatty [facility] COPD COPD Diagnosis Active [facility] (chronic (chronic [facility] - obstructiv obstructiv Me moria e e l pulmonary pulmonary Outp ati disease) disease) ent Clinics Nicotine Nicotine Diagnosis Active [facility] dependence dependence Krista kes [facility] Hypertensi Hypertensi Diagnosis Active [facility] Chronic Chronic Diagnosis Active [facility] pain pain [facility] - syndrome syndrome [facility] Depression Depression Problem Active [facility] with with [facility] anxiety anxiety [facility] Anxiety Anxiety Problem Active [facility] Alcoholism Alcoholism Problem Active [facility] Allergies, Adverse Reactions, Alerts Allergy Allergy Status Severity Reaction(s) Onset Inactive Treating Comm ents Source Name Type Date Date Clinician Lisinopr Adverse Active severe [facility] Reaction fatigue [facility] Social History Social Habit Start Date Stop Date Quantity Comments Source Sex Assigned At [birth year] Male LON Ni 00:00:00 00:00:00 [facility] Smoking Status Start Date Stop Date Source Unknown if ever smoked [facility] Medications Ordered Filled Start Stop Current Ordering Indication Dosage Frequency Signature Comments Components Source Medication Medication Date Date Medication? Clinician (SIG) Name Name Omeprazole Omeprazole Yes Jennifer [address] [facility] 1-29 [place] 30 minutes [facility] - 00:00: before [facility] 00 morning l [facility] HydrOXYzine HydrOXYzine Yes Jennifer [address] [facility] HCl HCl 8-20 [place] as needed [facility] - 00:[facility]: [facility] 00 l [facility] Escitalopra Escitalopra Yes Jennifer [address] [facility] m Oxalate m Oxalate 7-15 [place] Luke s - 00:00: [facility]oria 00 l [facility] Albuterol Albuterol Yes Jennifer 3 ml as [facility] Sulfate Sulfate [place] needed [facility] Esomeprazol Esomeprazol Yes Jennifer TAKE [address] [facility] [facility] e Magnesium e Magnesium [place] CAPSULE BY [facility] - MOUTH [facility]oria EVERY DAY l [facility] Albuterol No 2 [facility] (Proair Hfa S - Inh) 8 Gm [facility] Symbicort Symbicort Yes Jennifer inhale [address] [facility] [place] puffs by [facility] - mouth [facility] twice l daily [facility] Carvedilol No 25mg [facility] (Coreg) 25 S - Mg TAB [facility] Chlordiazep No 25mg [facility] oxide S - (Librium) [facility] 25 Mg CAP [facility] Viberzi Viberzi Yes Jennifer [address] [facility] [place] with food [facility] Fluoxetine No 20mg [facility] Hcl S - (Prozac) 20 [place] Mg CAP [facility] Proctofoam Proctofoam Yes Jennifer [address] [facility] [place] applicatio [facility] - n as [facility] needed l [facility] Folic Acid No 1mg [facility] (Folvite) 1 S - Mg TAB [facility] Losartan No 50mg [facility] Potassium S - (Cozaar) 50 [place] Mg TAB [facility] Gabapentin Gabapentin Yes Jennifer TAKE ONE [facility] [place] CAPSULE BY [facility] - MOUTH 3 [facility] TIMES A l DAY [facility] Omeprazole No 40mg [facility] (Prilosec) S - 40 Mg CPDR [facility] Thiamine No 100mg [facility] Hcl S - (Vitamin [place] B-1) 100 Mg [facility]oria TAB l Hospita l Losartan Losartan Yes Jennifer TAKE [address] [facility] Potassium Potassium [place] TABLET BY [facility] - MOUTH [facility] EVERY DAY l [facility] Ventolin Ventolin Yes Jennifer [address] HFA HFA [place] inhaled [facility] - every 4-6 [facility] hours as l needed [facility] Chlordiazep Chlordiazep Yes Jennifer (Schedule [facility] oxide HCl oxide HCl [place] IV Drug) [facility] - TK 1 C PO Memoria TID l [facility] Nicotine Nicotine Yes Jennifer [address] [facility] [place] skin [facility] Carvedilol Carvedilol Yes Jennifer 1 tab(s) [address] [facility] [place] times a [facility] - day orally Memoria l [facility] Vital Signs Vital Name Observation Time Observation Value Comments Source Heart Rate 2020-04-01 05:01:00 [facility] 2020-04[facility]01 05:01:00 [facility] 2020-04-01 05:01:00 102 mm[Hg] [facility] BP Diastolic 2020-04-01 05:01:00 59 mm[Hg] [facility] Heart Rate 2020-04-01 04:21:00 75 /min [facility] Respiratory rate 2020-04-01 04:21:00 16 /[facility] Systolic 2020-04-01 04:21:00 102 mm[Hg] [facility] Diastolic 2020-04-01 04:21:00 59 mm[Hg] LON Ni [facility] Procedures Procedure Date / Time Performed Performing Clinician Sour e Computed tomography of 2020-03-31 00:00:00 KALYN Ni abdomen and pelvis [facility] without contrast Plan of Care Planned Activity Planned Date Details Comments Source Goal Patient referral [code = JENNY Ni [id number] ] [facility] Instructions Gallstones (DC) [facility] Naomi Mills [facility] Encounters Start End Encounter Admission Attending Care Care Encounter Source Date/Time Date/Time Type Type Clinicians Facility Department ID 2020-03-31 2020-04-01 Departed GAYLA Ni [id number] [facility] 23:29:00 04:32:[address] 2020-03-05 2020-03-05 [facility] [id number] [address] 08:20:00 08:20:00 [facility] Medicine Outpati ent Clinics 2019-09-24 2019-09-24 [facility] [id number] 19:14:00 19:14:00 [facility] Medicine Outpati ent Clinics 2019-04-15 2019-04-15 [facility] [id number] 08:40:00 08:40:00 [facility] Medicine Outpati ent Clinics 2019-03-10 2019-03-10 [facility] [id number] 14:40:00 14:40:00 [facility] Medicine Outpati ent Clinics 2019-02-26 2019-02-26 [facility] [id number] 09:40:00 09:40:00 [facility] Medicine Outpati ent Clinics 2019-02-24 2019-02-24 [facility] [id number] 14:16:00 14:16:00 [facility] Medicine Outpati ent Clinics 2018-11-14 2018-11-14 [facility] [id number] 13:30:00 13:30:00 [facility] Medicine Outpati ent Clinics Results Test Description Test Time Test Comments Results Result Comments Source Venous whole blood sodium measurement (moles/volume) 2020-03 00:15:00 Test Item Value Reference Range Interpretation Comme nts Bedside Sodium (test code = 03339-5) 136 mmol/L [facility] whole blood potassium measurement (moles/volume)2020-04-01 00:15:00 Test Item Value Reference Range Interpretation Comments Bedside Potassium (test code = 3.8 mmol/L 41138-3) [facility] whole blood chloride measurement (moles/volume)2020-04-01 00:15:00 Test Item Value Reference Range Interpretation Comments Bedside Chloride (test code = 101 mmol/L 44774-2) [facility] whole blood total carbon dioxide measurement (moles/volume)2020-04-01 00:15:00 Test Item Value Reference Range Interpretation Comments Bedside Total CO2 (test code = 23.0 mmol/L 2026-1) [facility] whole blood urea nitrogen (BUN) measurement (mass/volume)2020-04-01 00:15:00 Test Item Value Reference Range Interpretation Comments Bedside Blood Urea Nitrogen (test 12 mg/dL code = 38587-8) [facility] creatinine measurement (mass/volume) 2020-04-01 00:15:00 Test Item Value Reference Range Interpretation Comments Bedside Creatinine (test code = 2.1 mg/dL 80893-3) [facility] whole blood glucose measurement (mass/volume)2020-04-01 00:15:00 Test Item Value Reference Range Interpretation Comments Bedside Glucose (test code = 99 mg/dL 80903-7) [facility] (moles/volume)2020-04-01 00:15:00 Test Item Value Reference Range Interpretation Comments Bedside Whole Blood Ionized 0.99 mmol/L Calcium (test code = 1994-3) [facility] anion [id number] 00:15:00 Test Item Value Reference Range Interpretation Comments Bedside Anion Gap (test code = 56145-1) 17 [facility] [id number] 00:15:00 Test Item Value Reference Range Interpretation Comments Estimat Glomerular Filtration Rate 37 (test code = 29023-1) [facility] blood hemoglobin measurement (mass/volume)2020-04-01 00:15:00 Test Item Value Reference Range Interpretation Comments Bedside Hemoglobin (test code = 13.9 g/dL 70167-4) [facility] blood hematocrit (volume fraction) 2020-04-01 00:15:00 Test Item Value Reference Range Interpretation Comments Bedside Hematocrit (test code = 41.0 % 61234-3) [facility] blood lactic acid measurement (moles/volume)2020-04-01 00:10:00 Test Item Value Reference Range Interpretation Comments Bedside Lactic Acid Venous (test 1.74 mmol/L code = 2519-7) [facility] (number/volume)2020-03-31 11:50:00 Test Item Value Reference Range Interpretation Comments White Blood Count (test code = 11.4 10*3/uL 6690-2) [facility] erythrocytes automated count (number/volume)2020-03-31 11:50:00 Test Item Value Reference Range Interpretation Comments Red Blood Count (test code = 4.25 10*6/uL 789-8) [facility] hemoglobin measurement (mass/volume) 2020-03-31 11:50:00 Test Item Value Reference Range Interpretation Comments Hemoglobin (test code = 718-7) 14.5 g/dL [facility] hematocrit (volume fraction) 2020-03-31 11:50:00 Test Item Value Reference Range Interpretation Comments Hematocrit (test code = 4544-3) 41.8 % [facility] eryth[facility] mean corpuscular volume (MCV) [id number] 11:50:00 Test Item Value Reference Range Interpretation Comments Mean Corpuscular Volume (test code = 98.4 fL 787-2) [facility] mean corpuscular hemoglobin (mass per erythrocyte)2020-03-31 11:50:00 Test Item Value Reference Range Interpretation Comments Mean Corpuscular Hemoglobin (test 34.1 pg code = 785-6) [facility] erythrocyte mean corpuscular hemoglobin concentration measurement (mass/[id number] 11:50:00 Test Item Value Reference Range Interpretation Comments Mean Corpuscular Hemoglobin Concent 34.7 g/dL (test code = 786-4) [facility] width [id number] 11:50:00 Test Item Value Reference Range Interpretation Comments Red Cell Distribution Width (test code 12.8 % = 788-0) [facility] blood platelet count (count/volume) 2020-03-31 11:50:00 Test Item Value Reference Range Interpretation Comments Platelet Count (test code = 105 10*3/uL 777-3) [facility] blood platelet mean volume [id number] 11:50:00 Test Item Value Reference Range Interpretation Comments Mean Platelet Volume (test code = 10.1 fL 44310-5) [facility] [id number] 11:50:00 Test Item Value Reference Range Interpretation Comments Manual Differential (test code = ----- 8265-1) [facility] blood segmented neutrophils/100 [id number] 11:50:00 Test Item Value Reference Range Interpretation Comments Neutrophils % (Manual) (test code = 61 % 769-0) [facility] blood lymphocytes/100 leukocytes 2020-03-31 11:50:00 Test Item Value Reference Range Interpretation Comments Lymphocytes % (Manual) (test code = 23 % 737-7) [facility] blood monocytes/100 leukocytes 2020-03-31 11:50:00 Test Item Value Reference Range Interpretation Comments Monocytes % (Manual) (test code = 14 % 744-3) [facility] blood eosinophil count as percentage of total [id number] 11:50:00 Test Item Value Reference Range Interpretation Comments Eosinophils % (Manual) (test code = 2 % 714-6) [facility] platelet detection by light microscopy 2020-03-31 11:50:00 Test Item Value Reference Range Interpretation Comments Platelet Estimate (test code = Decreased 9317-9) [facility] erythrocyte morphology finding [id number] 11:50:00 Test Item Value Reference Range Interpretation Comments Red Blood Cell Morphology (test code = Normal 6742-1) [facility] or plasma sodium measurement (moles/volume)2020-03-31 11:50:00 Test Item Value Reference Range Interpretation Comments Sodium Level (test code = 2951-2) 135 mmol/L [facility] or plasma potassium measurement (moles/volume)2020-03-31 11:50:00 Test Item Value Reference Range Interpretation Comments Potassium Level (test code = 3.7 mmol/L 2823-3) [facility] or plasma chloride measurement (moles/volume)2020-03-31 11:50:00 Test Item Value Reference Range Interpretation Comments Chloride Level (test code = 102 mmol/L 5-0) [facility] or plasma total carbon dioxide measurement (moles/volume)2020-03-31 11:50:00 Test Item Value Reference Range Interpretation Comments Carbon Dioxide Level (test code = 19 mmol/L 2027-) [facility] or plasma anion gap determination (moles/volume)2020-03-31 11:50:00 Test Item Value Reference Range Interpretation Comments Anion Gap (test code = 28313-6) 18 [facility] or plasma urea nitrogen measurement (mass/volume)2020-03-31 11:50:00 Test Item Value Reference Range Interpretation Comments Blood Urea Nitrogen (test code = 11 mg/dL 3094-0) [facility] or plasma creatinine measurement (mass/volume)2020-03-31 11:50:00 Test Item Value Reference Range Interpretation Comments Creatinine (test code = 2160-0) 1.8 mg/dL [facility] [id number] 11:50:00 Test Item Value Reference Range Interpretation Comments Estimat Glomerular Filtration Rate 44 (test code = 26081-4) [facility] urea nitrogen/creatinine mass [id number] 11:50:00 Test Item Value Reference Range Interpretation Comments BUN/Creatinine Ratio (test code = 6 3097-3) [facility] or plasma glucose measurement (mass/volume)2020-03-31 11:50:00 Test Item Value Reference Range Interpretation Comments Glucose Level (test code = 2345-7) 98 mg/dL [facility] CenterOsmolality of Serum or Plasma by calculation 2020-03-31 11:50:00 Test Item Value Reference Range Interpretation Comments Calculated Osmolality (test code 269 mosm/kg = 63811-3) [facility] or plasma calcium measurement (mass/volume)2020-03-31 11:50:00 Test Item Value Reference Range Interpretation Comments Calcium Level (test code = 51872-6) 7.8 mg/dL [facility] or plasma total bilirubin measurement (mass/volume)2020-03-31 11:50:00 Test Item Value Reference Range Interpretation Comments Total Bilirubin (test code = 0.8 mg/dL 1974[facility] total combined glucuronidated bilirubin and albumin bound bilirubin measurement (mass/volume)2020-03-31 11:50:00 Test Item Value Reference Range Interpretation Comments Direct Bilirubin (test code = 0.4 mg/dL 1968-02) [facility] or plasma aspartate aminotransferase measurement (enzymatic activity/volume)2020-03-31 11:50:00 Test Item Value Reference Range Interpretation Comments Aspartate Amino Transf (AST/SGOT) 67 U/L (test code = 1920-8) [facility] or plasma alanine aminotransferase measurement (enzymatic activity/volume)2020-03-31 11:50:00 Test Item Value Reference Range Interpretation Comments Alanine Aminotransferase (ALT/SGPT) 42 U/L (test code = 1742-6) [facility] or plasma protein measurement (mass/volume)2020-03-31 11:50:00 Test Item Value Reference Range Interpretation Comments Total Protein (test code = 2885-2) 7.5 g/dL [facility] or plasma albumin measurement (mass/volume)2020-03-31 11:50:00 Test Item Value Reference Range Interpretation Comments Albumin (test code = 1751-7) 4.0 g/dL [facility] globulin measurement by calculation (mass/volume)2020-03-31 11:50:00 Test Item Value Reference Range Interpretation Comments Globulin (test code = 11723-0) 3.5 g/dL [facility] albumin/globulin mass ratio 2020-03-31 11:50:00 Test Item Value Reference Range Interpretation Comments Albumin/Globulin Ratio (test code = 1.1 1759-0) [facility] or plasma alkaline phosphatase measurement (enzymatic activity/volume)2020-03-31 11:50:00 Test Item Value Reference Range Interpretation Comments Alkaline Phosphatase (test code = 71 U/L 6768-6) [facility] or plasma lipase measurement (enzymatic activity/volume)2020-03-31 11:50:00 Test Item Value Reference Range Interpretation Comments Lipase (test code = 3040-3) 299 U/L [facility] CenterUrinalysis specimen collection method 2020-03-31 02:48:00 Test Item Value Reference Range Interpretation Comments Urine Source (test code = 53762-6) URINE [facility] color [id number] 02:48:00 Test Item Value Reference Range Interpretation Comments Urine Color (test code = 5778-6) Yellow [facility] CenterU[facility] clarity [id number] 02:48:00 Test Item Value Reference Range Interpretation Comments Urine Appearance (test code = 97108-5) Clear [facility] pH measurement by automated test strip 2020-03-31 02:48:00 Test Item Value Reference Range Interpretation Comments Urine pH (test code = 98508-4) 5.[address] [facility] [facility] U[facility] by Automated test [id number] 02:48:00 Test Item Value Reference Range Interpretation Comments Urine Specific Dexter (test code = 1.020 70876-0) [facility] protein measurement by automated test strip (mass/volume)2020-03-31 02:48:00 Test Item Value Reference Range Interpretation Comments Urine Protein (test code = 70725-9) 100 mg/dL [facility] glucose measurement by automated test strip (mass/volume)2020-03-31 02:48:00 Test Item Value Reference Range Interpretation Comments Urine Glucose (UA) (test code Negative mg/dL = 30835-9) [facility] ketones measurement by automated test strip (mass/volume)2020-03-31 02:48:00 Test Item Value Reference Range Interpretation Comments Urine Ketones (test code = 56603-4) 15 mg/dL [facility] erythrocytes count by automated test strip (number/volume)2020-03-31 02:48:00 Test Item Value Reference Range Interpretation Comments Urine Occult Blood (test Negative {Butch}/uL code = 65361-6) [facility] nitrite detection by automated test [id number] 02:48:00 Test Item Value Reference Range Interpretation Comments Urine Nitrite (test code = 41972-8) Negative [facility] total bilirubin measurement by automated test strip (mass/volume)2020-03-31 02:48:00 Test Item Value Reference Range Interpretation Comments Urine Bilirubin (test code = 85578-9) 1 mg/dL [facility] CenterConfirmatory urine bilirubin measurement 2020-03-31 02:48:00 Test Item Value Reference Range Interpretation Comments Urine Ictotest (test code = 89416-9) Positive [facility] urobilinogen measurement by automated test strip (mass/volume)2020-03-31 02:48:00 Test Item Value Reference Range Interpretation Comments Urine Urobilinogen (test code = 4.0 mg/dL 77649-4) [facility] leukocytes count by automated test strip (number/volume)2020-03-31 02:48:00 Test Item Value Reference Range Interpretation Comments Urine Leukocyte Esterase (test 25 {Zohaib}/uL code = 86750-6) [facility] CenterMicroscopic examination of [id number] 02:48:00 Test Item Value Reference Range Interpretation Comments Microscopic Urinalysis (T) (test code = ----- 43674-1) [facility] sediment erythrocyte count by microscopy (number/high power field)2020-03-31 02:48:00 Test Item Value Reference Range Interpretation Comments Urine RBC (test code = None Seen /[HPF] 06641-1) [facility] sediment leukocyte count by microscopy (number/high power field)2020-03-31 02:48:00 Test Item Value Reference Range Interpretation Comments Urine WBC (test code = 5821-4) 0-5 /[HPF] [facility] sediment epithelial cell count by microscopy (number/high power field)2020-03-31 02:48:00 Test Item Value Reference Range Interpretation Comments Urine Epithelial Cells (test code Few /[HPF] = 5787-7) [facility] sediment crystal count by microscopy (number/high power field)2020-03-31 02:48:00 Test Item Value Reference Range Interpretation Comments Urine Crystals (test code = None Seen /[HPF] 01230-2) [facility] CenterAm[facility] sediment detection in urine sediment by light [id number] 02:48:00 Test Item Value Reference Range Interpretation Comments Urine Amorphous Sediment Moderate /[HPF] (test code = 8246-1) [facility] sediment bacteria count by microscopy (number/high power field)2020-03-31 02:48:00 Test Item Value Reference Range Interpretation Comments Urine Bacteria (test code = None Seen /[HPF] 5769-5) [facility] sediment casts count by microscopy (number/low power field)2020-03-31 02:48:00 Test Item Value Reference Range Interpretation Comments Urine Casts (test code = Present /[LPF] 9842-6) [facility] sediment hyaline cast count by microscopy (number/low power field)2020-03-31 02:48:00 Test Item Value Reference Range Interpretation Comments Urine Hyaline Casts (test code = 2-5 /[LPF] 5796-8) [facility] count in urine sediment by microscopy (number/low power field )2020-03-31 02:48:00 Test Item Value Reference Range Interpretation Comments Urine Fine Granular Casts (test 6-10 /[LPF] code = 36615-6) [facility] CenterYeast detection in urine sediment by light [id number] 02:48:00 Test Item Value Reference Range Interpretation Comments Urine Yeast (test code = None Seen /[HPF] 81001-0) [facility] 02:48:00 Test Item Value Reference Range Interpretation Comments Urinalysis Comment (test code = 8262-8) * [facility] comment 02:48:00 Test Item Value Reference Range Interpretation Comments Urine Culture Indicated (test code = Not Ind 8264-4) [facility]
[2020-07-05] MEDS ORDERED: NA CHLORIDE 0.9% 1,000 ML ONE (05:40)
[2020-07-05 05:46] LABS: Absolute Lymphocytes (CBC) 2.3 K/uL (0.7-4.9); Basophils % 0.8 % (0-1.3); Hematocrit 39.8 % (39.6-49.0); Lymphocytes % 39.6 % (15.3-44.8); MPV 8.3 fL (7.6-11.3); RBC Red Blood Cell Count 4.03 M/uL (4.33-5.43)
[2020-07-05 05:58] LABS: Albumin 3.2 g/dL (3.4-5.0); Bilirubin Direct 0.3 mg/dL (0-0.2); Bilirubin Total 0.6 mg/dL (0.2-1.0); Potassium 3.5 mmol/L (3.5-5.1); Protein, Total 7.7 g/dL (6.4-8.2)
--- NOTE | 2020-07-05 06:38 | EDPHYS ---
Physician Documentation [facility] Name: Sung Brown Jr Age: 44 yrs Sex: Male : 1975 Arrival Date: 07/05/2020 Time: 05:01 Bed 6 Private MD: ED Physician Julio Chow HPI: 07/05 05:12 This 44 yrs old Male presents to ER via Unassigned with complaints of tw4 Abdominal Pain. 05:12 The patient presents with abdominal pain. The patient presents with abdominal pain in tw4 the upper abdomen. Onset: The symptoms/episode began/occurred today. The symptoms do not radiate. Associated signs and symptoms: none. The symptoms are described as sharp. Modifying factors: The symptoms are alleviated by nothing, the symptoms are aggravated by nothing. The patient has not experienced similar symptoms in the past. Historical: - Allergies: 05:01 NKDA; jb4 - Home Meds: 05: Albuterol Inhl [Active]; carvedilol 25 mg Oral tab 1 tab daily [Active]; jb4 chlordiazepoxide HCl 10 mg Oral cap 1 cap 3 times per day [Active]; Cozaar 50 mg Oral tab 1 tab once daily [Active]; fluoxetine 20 mg Oral cap 1 cap once daily [Active]; gabapentin 300 mg Oral cap 1 cap 3 times per day [Active]; hydrocodone-acetaminophen 5-325 mg Oral tab 1 tab every 6 hours [Active]; omeprazole 40 mg Oral cpDR 1 cap once daily [Active]; lorazepam 1 mg Oral tab once daily [Active]; Symbicort inhalation [Active]; thiamine HCl (vitamin B1) 100 mg Oral tab [Active]; - PMHx: 05:01 ADD/ADHD; COPD; Hepatitis; Hypertension; WPW; jb4 - PSHx: 05:01 Cholecystectomy; multiple ortho procedures; cardiac ablation; jb4 - Immunization history:: Adult Immunizations up to date. - Social history:: Smoking status: Patient reports the use of cigarette tobacco products, smokes one-half pack cigarettes per day, Patient uses alcohol, on a daily basis. Patient/guardian denies using street drugs. ROS: 05:12 Constitutional: Negative for fever, chills, and weight loss, Eyes: Negative for injury, tw4 pain, redness, and discharge, Cardiovascular: Negative for chest pain, palpitations, and edema, Respiratory: Negative for shortness of breath, cough, wheezing, and pleuritic chest pain, Back: Negative for injury and pain, MS/Extremity: Negative for injury and deformity, Skin: Negative for injury, rash, and discoloration, Neuro: Negative for headache, weakness, numbness, tingling, and seizure. 05:12 Abdomen/GI: Positive for abdominal pain, Negative for nausea and vomiting, nausea, vomiting, and diarrhea, nausea, abdominal cramps, abdominal distension, anorexia, dysphagia, hematemesis, black/tarry stool, rectal pain, rectal bleeding, bowel incontinence. Exam: 05:12 Constitutional: This is a well developed, well nourished patient who is awake, alert, tw4 and in no acute distress. Head/Face: Normocephalic, atraumatic. Chest/axilla: Normal chest wall appearance and motion. Nontender with no deformity. No lesions are appreciated. Cardiovascular: Regular rate and rhythm with a normal S1 and S2. No gallops, murmurs, or rubs. Normal PMI, no JVD. No pulse deficits. Respiratory: Lungs have equal breath sounds bilaterally, clear to auscultation and percussion. No rales, rhonchi or wheezes noted. No increased work of breathing, no retractions or nasal flaring. Back: No spinal tenderness. No costovertebral tenderness. Full range of motion. Skin: Warm, dry with normal turgor. Normal color with no rashes, no lesions, and no evidence of cellulitis. MS/ Extremity: Pulses equal, no cyanosis. Neurovascular intact. Full, normal range of motion. Neuro: Awake and alert, GCS 15, oriented to person, place, time, and situation. Cranial nerves II-XII grossly intact. Motor strength 5/5 in all extremities. Sensory grossly intact. Cerebellar exam normal. Normal gait. 05:12 Abdomen/GI: Inspection: abdomen appears normal, Bowel sounds: normal, Palpation: moderate abdominal tenderness, in the epigastric area, right upper quadrant and left upper quadrant. Vital Signs: 05:01 BP 84 / 55; Pulse 70; Resp 16; Temp 98.3; Pulse Ox 89% on R/A; Pain 7/10; jb4 05:45 BP 82 / 62 LA Sitting (man/); Pulse 70; Resp 16; Pulse Ox 98% on 2 lpm NC; 4 05:45 BP 96 / 72 RA Sitting (man/reg); Pulse 72; Resp 16; Pulse Ox 98% on 2 lpm NC; 4 06:30 BP 99 / 63; Pulse 75; Resp 17; Pulse Ox 96% on R/A; jb4 MDM: 05:05 Patient medically screened. 07/05 05:10 Order name: Basic Metabolic Panel; Complete Time: 06:01 07/05 06:01 Interpretation: Normal except: CL 109; GFR 88. 07/05 05:10 Order name: CBC with Diff; Complete Time: 06:01 07/05 06:01 Interpretation: Normal except: RBC 4.03; PLT 139; MN% 17.9; ISIDORO% 38.9. 07/05 05:10 Order name: Hepatic Function; Complete Time: 06:02 07/05 06:02 Interpretation: Normal except: AST 61; BILID 0.3; ALB 3.2; GLOB 4.5; A/G 0.7. 07/05 05:10 Order name: Lipase; Complete Time: 06:01 07/05 06:01 Interpretation: Normal except: LIP 633. 07/05 05:10 Order name: Alcohol Level; Complete Time: 06:17 07/05 06:18 Interpretation: Abnormal: ETOH 235. 07/05 05:10 Order name: IV Saline Lock; Complete Time: 05:24 07/05 05:10 Order name: Labs collected and sent; Complete Time: 05:24 07/05 05:24 Order name: EKG - Nurse/Tech; Complete Time: 05:49 [facility] EC:55 Rate is 72 beats/min. Rhythm is regular. QRS [place] is Normal. [place] interval is normal. QRS tw4 interval is normal. QT interval is normal. No Q waves. T waves are Normal. No ST changes noted. Clinical impression: Normal ECG. Interpreted by me. Reviewed by me. Administered Medications: 05:30 Drug: NS 0.9% 1000 ml Route: IV; Rate: 1 bolus; Site: left antecubital; [facility] 07:32 Follow up: IV Status: Completed infusion; IV Intake: 1000ml bp 06:30 Drug: TORadol 30 mg Route: IVP; Site: left hand; 4 07:32 Follow up: Response: No adverse reaction bp Disposition: 07/05/20 06:38 Patient has left against medical advice. Impression: Abdominal tenderness. - Patients states they are going to Home. - Condition is Stable. - Discharge Instructions: Abdominal Pain, Adult. Follow up: Private Physician; When: Upon discharge from the Emergency Department; Reason: Recheck today's complaints, Continuance of care, Re-evaluation by your physician. - Problem is new. - Symptoms have improved. Signatures: Dispatcher [employer] EDMS Chris Burt RN RN jb4 Anant Huerta RN RN bp Julio Chow MD MD tw4 Corrections: (The following items were deleted from the chart) 07:32 06:38 07/05/2020 06:38 Patients has left against medical advice. Impression: Abdominal bp tenderness. Patient states they are going to Home. Condition is Stable. Follow up: Private Physician; When: Upon discharge from the Emergency Department; Reason: Recheck today's complaints, Continuance of care, Re-evaluation by your physician. Problem is new. Symptoms have improved. tw4
--- NOTE | 2020-07-05 06:38 | ER ---
Nurse's Notes [facility] Name: Sung Brown Jr Age: 44 yrs Sex: Male : 1975 Arrival Date: 07/05/2020 Time: 05:01 Bed 6 Private MD: Diagnosis: Abdominal tenderness Presentation: 07/05 05:01 Chief complaint: EMS states: The patient is reporting severe abdominal pain. The jb4 patient was here 3 weeks ago to have his gallbladder removed. A week later he was here and diagnosed with pancreatitis. tonight he is reporting severe abdominal pain on the left side of his stomach. He is also slightly hypotensive. 05:01 Coronavirus screen: Client denies travel out of the [place] in the last 14 days. At this jb4 time, the client does not indicate any symptoms associated with coronavirus-19. Ebola Screen: No symptoms or risks identified at this time. Initial Sepsis Screen: Does the patient meet any 2 criteria? Systolic BP < 90 mmHg. Does the patient have a suspected source of infection? No. Patient's initial sepsis screen is negative. Risk Assessment: Do you want to hurt yourself or someone else? Patient reports no desire to harm self or others. Onset of symptoms was July 05, 2020. Transition of care: patient was not received from another setting of care. 05:01 Method Of Arrival: EMS: [facility] 4 05:01 Acuity: CINTIA 2 jb4 05:01 Care prior to arrival: Medication(s) given: Fentanyl 100 mcg, Thiamine 200 mg IV jb4 initiated. 20 GA, in the left hand. Historical: - Allergies: 05: NKDA; jb4 - Home Meds: 05:01 Albuterol Inhl [Active]; carvedilol 25 mg Oral tab 1 tab daily [Active]; jb4 chlordiazepoxide HCl 10 mg Oral cap 1 cap 3 times per day [Active]; Cozaar 50 mg Oral tab 1 tab once daily [Active]; fluoxetine 20 mg Oral cap 1 cap once daily [Active]; gabapentin 300 mg Oral cap 1 cap 3 times per day [Active]; hydrocodone-acetaminophen 5-325 mg Oral tab 1 tab every 6 hours [Active]; omeprazole 40 mg Oral cpDR 1 cap once daily [Active]; lorazepam 1 mg Oral tab once daily [Active]; Symbicort inhalation [Active]; thiamine HCl (vitamin B1) 100 mg Oral tab [Active]; - PMHx: 05:01 ADD/ADHD; COPD; Hepatitis; Hypertension; WPW; jb4 - PSHx: 05:01 Cholecystectomy; multiple ortho procedures; cardiac ablation; jb4 - Immunization history:: Adult Immunizations up to date. - Social history:: Smoking status: Patient reports the use of cigarette tobacco products, smokes one-half pack cigarettes per day, Patient uses alcohol, on a daily basis. Patient/guardian denies using street drugs. Screenin:01 Abuse screen: Denies threats or abuse. Nutritional screening: No deficits noted. jb4 Tuberculosis screening: No symptoms or risk factors identified. Fall Risk Secondary diagnosis (15 points) hypotension. IV access (20 points). Total Johnson Fall Scale indicates Low Risk Score (25-44 pts). Fall prevention measures have been instituted. Side Rails Up X 2 Placed close to Nursing Station Frequent Obs/Assesments occuring Family Present and informed to notify staff if they need to leave bedside As available Patient and Family Educated on Fall Prevention Program and strategies. Assessment: 05:01 General: Appears in no apparent distress. uncomfortable, Behavior is calm, cooperative, jb4 appropriate for age. Pain: Complains of pain in left upper quadrant Pain radiates to mid back area, anterior aspect of left lateral abdomen, anterior aspect of right lateral abdomen and right upper quadrant Pain currently is 7 out of 10 on a pain scale. Pain began 3 hours ago. Neuro: Level of Consciousness is awake, alert, obeys commands, Oriented to person, place, time, situation. Cardiovascular: Patient's skin is warm and dry. Respiratory: Airway is patent Respiratory effort is even, unlabored, Respiratory pattern is regular, symmetrical. GI: Abdomen is round distended, Bowel sounds present X 4 quads. Abd is soft X 4 quads Abdomen is tender to palpation X 4 quads. : No signs and/or symptoms were reported regarding the genitourinary system. EENT: No signs and/or symptoms were reported regarding the EENT system. Derm: Skin is intact, Skin is pink, warm \T\ dry. Musculoskeletal: Circulation, motion, and sensation intact. Range of motion: intact in all extremities. 05:30 Reassessment: PT reports an increase in pain that is radiating to his chest. Provider jb4 notifed, received verbal order for EKG and toradol 30mg IV. PT refused toradol. Discussed with patient the reasoning for Toradol over opioid medicaitons. Pt continues to refuse. 06:14 Reassessment: PT continues to request Dilaudid, Demerol, or Morphine. Educated that jb4 Opioid medications could further lower his blood pressure. Provider at the bedside explaining the risk of giving said medications and why he cannot order them. Pt informed he can still have toradol for pain. Pt refused. 06:23 Reassessment: PT refused CT due to not receiving opioid pain medication. jb4 06:30 Reassessment: PT requested Toradol for pain. Provider notified, see MAR for orders. jb4 06:45 Reassessment: Patient appears in no apparent distress at this time. Patient and/or jb4 family updated on plan of care and expected duration. Pain level reassessed. Patient is alert, oriented x 3, equal unlabored respirations, skin warm/dry/pink. Pt continues to refuse CT. 07:00 Reassessment: RECD REPORT FROM KAY CELIS. 44YO WM P/W ETOH ABUSE AND ABDOMINAL PAIN. PT bp CURRENTLY REFUSING ALL TREATMENT EXCEPT NARCOTIC PAIN MEDICINE. 07:30 Reassessment: PT LEAVING AMA, REFUSING TO SIGN FORM. PT CONTINUES TO REFUSE ALL bp TREATMENT EXCEPT DILAUDID IV. PT WAS INFORMED HIS PRESSURE WOULD NOT SUPPORT NARCOTIC PAIN MEDICINE AND WAS OFFERED ALTERNATIVES AND DIAGNOSTICS. PT LEFT WITH STEADY GAIT AFTER EXTENSIVE USE OF PROFANITY TOWARDS NURSING AND MEDICAL STAFF. Vital Signs: 05:01 BP 84 / 55; Pulse 70; Resp 16; Temp 98.3; Pulse Ox 89% on R/A; Pain 7/10; jb4 05:45 BP 82 / 62 LA Sitting (man/); Pulse 70; Resp 16; Pulse Ox 98% on 2 lpm NC; jb4 05:45 BP 96 / 72 RA Sitting (man/reg); Pulse 72; Resp 16; Pulse Ox 98% on 2 lpm NC; jb4 06:30 BP 99 / 63; Pulse 75; Resp 17; Pulse Ox 96% on R/A; jb4 ED Course: 05:01 Patient arrived in ED. cl3 05:01 Arm band placed on right wrist. jb4 05:01 Patient has correct armband on for positive identification. Bed in low position. Call jb4 light in reach. Side rails up X 1. Pulse ox on. NIBP on. 05:01 Maintain EMS IV. Dressing intact. Good blood return noted. Site clean \T\ dry. Gauge \T\ jhony 4 site: 20g LHand. 05:05 Julio Chow MD is Attending Physician. tw4 05:13 Chris Burt, RN is Primary Nurse. jb4 05:36 Triage completed. jb4 07:12 Primary Nurse role handed off by Chris Burt, VIMAL bp 07:12 Anant Huerta, RN is Primary Nurse. bp 07:30 No provider procedures requiring assistance completed. IV discontinued, intact, bp bleeding controlled, No redness/swelling at site. Pressure dressing applied. Administered Medications: 05:30 Drug: NS 0.9% 1000 ml Route: IV; Rate: 1 bolus; Site: left antecubital; jb4 07:32 Follow up: IV Status: Completed infusion; IV Intake: 1000ml bp 06:30 Drug: TORadol 30 mg Route: IVP; Site: left hand; jb4 07:32 Follow up: Response: No adverse reaction bp Intake: 07:32 IV: 1000ml; Total: 1000ml. bp Outcome: 07:30 AMA Left before signing form. bp 07:30 Condition: stable 07:32 Patient left the ED. bp Signatures: Chris Burt RN RN 4 Anant Huerta RN RN bp Julio Chow MD MD 4 Karel Covarrubias cl3 Corrections: (The following items were deleted from the chart) 05:42 05:01 Acuity: CINTIA 3 jb4 jb4 05:58 05:01 Pain: Complains of pain in left upper quadrant Pain radiates to left breast and jb4 anterior aspect of left lateral abdomen Pain currently is 7 out of 10 on a pain scale. Pain began 3 hours ago. jb4 06:24 05:30 Reassessment: PT reports an increase in pain that is radiating to his chest. jb4 Provider notifed, received verbal order for EKG and toradol. PT refused toradol. jb4
[2020-07-05] MEDS ORDERED: KETOROLAC 30 MG/ML INJ ONE (06:47)
[2020-07-05 07:39] VITALS: TEMP 98.3
[2020-07-05 07:43] VITALS: BP 99/63; O2SAT 96
--- NOTE | 2020-07-06 12:08 | EKG ---
Test Date: 2020-07-05 Test Time: 05:28:30 Junior Network Engineer: LEELA MEASUREMENT RESULTS: Intervals: Rate: 72 NM: 138 QRSD: 88 QT: 406 QTc: 444 [place]: P: 40 NM: 138 QRS: 65 T: 37 INTERPRETIVE STATEMENTS: Normal sinus rhythm Normal ECG Compared to ECG 06/16/2020 22:17:14 No significant changes Electronically Signed On 07-06-20 12:03:32 QUARRY EQUIPMENT OPERATOR by Candido [place]
== END 2020-07-05 07:32 | disposition left against medical advice (07) ==
LOC: ER 05:00
DX: R10.819 Abdominal tenderness, unspecified site (principal); F17.210 Nicotine dependence, cigarettes, uncomplicated; I10 Essential (primary) hypertension; J44.9 Chronic obstructive pulmonary disease, unspecified; I45.6 Pre-excitation syndrome
CPT/HCPCS: 96361; 93005; 85025; 80048; 36415; 80320; 80076; 83690; 96374; 99283; J7030

== ENCOUNTER 2021-01-29 05:55 | Observation (INO) | payer OTHER ==
--- OUTSIDE RECORDS SUMMARY | 2021-01-29 06:00 | XMS REPORT | Continuity of Care Document ---
:1975 Author Organization [facility] t Address [address] [place] [address] Care Team Providers Name Role Phone FOUND, NOT Primary Care Physician Unavailable Advance Directives Directive Decision Effective Date Termination Date Comments Sour ce Yes N/A [facility] - Gallo [facility] bernie Problems Condition Condition Condition Status Onset Resolution Last Treating Co mments Source Name Details Category Date Date Treatment Clinician Date Problem Condition [facility] GERD GERD Diagnosis Active [facility] (gastroeso (gastroeso Krista kes - phageal phageal Memoria reflux reflux l disease) disease) Outpat i ent Clinics Alcoholic Alcoholic Diagnosis Active [facility] fatty fatty [facility] liver liver [facility] COPD COPD Diagnosis Active [facility] (chronic (chronic [facility] - obstructiv obstructiv Me moria e e l pulmonary pulmonary Outp ati disease) disease) ent Clinics Nicotine Nicotine Diagnosis Active [facility] dependence dependence Krista kes - [facility] Hypertensi Hypertensi Diagnosis Active [facility] Chronic Chronic Diagnosis Active [facility] pain pain [facility] - syndrome syndrome [facility] Outpati ent Clinics Depression Depression Problem Active [facility] with with [facility] - anxiety anxiety [facility] Anxiety Anxiety Problem Active [facility] Alcoholism Alcoholism Problem Active [facility] Allergies, Adverse Reactions, Alerts Allergy Allergy Status Severity Reaction(s) Onset Inactive Treating Comm ents Source Name Type Date Date Clinician Lisinopr Adverse Active severe [facility] Reaction fatigue [facility] - [facility] Clinics Social History Social Habit Start Date Stop Date Quantity Comments Source Sex Assigned At [birth year] Male LON Ni 00:00:00 00:00:00 [facility] Smoking Status Start Date Stop Date Source Unknown if ever smoked [facility] Medications Ordered Filled Start Stop Current Ordering Indication Dosage Frequency Signature Comments Components Source Medication Medication Date Date Medication? Clinician (SIG) Name Name Omeprazole Omeprazole Yes Jennifer [address] [facility] 1-29 [place] 30 minutes [facility] - 00:00: before [facility]oria 00 morning l meal [facility] HydrOXYzine HydrOXYzine Yes Jennifer [address] [facility] HCl HCl 8-20 [place] as needed [facility] - 00:00: [facility] 00 l [facility] ent Clinics Escitalopra Escitalopra Yes Jennifer [address] [facility] m Oxalate m Oxalate 7-15 [place] Luke s - 00:00: Memoria 00 [facility] ent Clinics Albuterol No 2 [facility]RISTU (Proair Hfa S - Inh) 8 Gm [place] [facility] Carvedilol No 25mg [facility] (Coreg) 25 S - Mg TAB [facility] Chlordiazep No 25mg [facility] oxide S - (Librium) [place] 25 Mg CAP [facility] Fluoxetine No 20mg [facility] Hcl S - (Prozac) 20 [place] Mg CAP [facility] Folic Acid No 1mg [facility] (Folvite) 1 S - Mg TAB [facility] Losartan No 50mg [facility] Potassium S - (Cozaar) 50 [place] Mg TAB [facility] Omeprazole No 40mg [facility] (Prilosec) S - 40 Mg CPDR [facility] Thiamine No 100mg [facility] Hcl S - (Vitamin [place] B-1) 100 Mg [facility]oria TAB l Hospita l Albuterol Albuterol Yes Jennifer 3 ml as [facility] Sulfate Sulfate [place] needed [facility] Clinics Esomeprazol Esomeprazol Yes Jennifer TAKE [address] [facility] [facility] e Magnesium e Magnesium [place] CAPSULE BY [facility] - MOUTH [facility]oria EVERY DAY l [facility] Symbicort Symbicort Yes Jennifer inhale [address] [facility] [place] puffs by [facility]ukes - mouth [facility] twice l daily [facility] Viberzi Viberzi Yes Jennifer [address] [facility] [place] with food [facility] - [facility] Proctofoam Proctofoam Yes Jennifer [address] HC HC [place] applicatio [facility] - n as [facility] needed l [facility] Gabapentin Gabapentin Yes Jennifer TAKE ONE [facility] [place] CAPSULE BY [facility] - MOUTH 3 Memoria TIMES A l DAY [facility] Losartan Losartan Yes Jennifer TAKE [address] [facility] Potassium Potassium [place] TABLET BY [facility] - MOUTH [facility] EVERY DAY l [facility] Ventolin Ventolin Yes Jennifer [address] HFA HFA [place] inhaled [facility] - every 4-6 [facility]oria hours as l needed [facility] Chlordiazep Chlordiazep Yes Jennifer (Schedule [facility] oxide HCl oxide HCl [place] IV Drug) [facility] - TK 1 C PO [facility] TID l [facility] Nicotine Nicotine Yes Jennifer [address] [facility] [place] skin [facility] - [facility] Carvedilol Carvedilol Yes Jennifer 1 tab(s) [address] [facility] [place] times a [facility] - day orally [facility] l [facility] Clinics Vital Signs Vital Name Observation Time Observation Value Comments Source Heart Rate 2020-04-01 05:01:00 75 /min [facility] Respiratory rate 2020-04-01 05:01:00 16 /min [facility] BP Systolic 2020-04-01 05:01:00 102 mm[facility]Hg[facility] Di[facility] 2020-04-01 05:01:00 59 mm[Hg] [facility] Heart Rate 2020-04-01 04:21:00 75 /min [facility] Respiratory rate 2020-04-01 04:21:00 16 /min [facility] BP Systolic 2020-04-01 04:21:00 102 mm[Hg] [facility] Diastolic 2020-04-01 04:21:00 59 mm[Hg] LON Ni [facility] Procedures Procedure Date / Time Performed Performing Clinician Sour e Computed tomography of 2020-03-31 00:00:00 KALYN Ni abdomen and pelvis [facility] without contrast Plan of Care Planned Activity Planned Date Details Comments Source Goal Patient referral [code = JENNY Ni [id number] ] [facility] Inst[facility] Encounters Start End Encounter Admission Attending Care Care Encounter Source Date/Time Date/Time Type Type Clinicians Facility Department ID 2020-03-31 2020-04-01 Departed GAYLA Ni [id number] [facility] 23:29:00 04:32:[address] 2020-03-05 2020-03-05 [facility] [id number] [address] 08:20:00 08:20:00 [facility] Medicine Outpati ent Clinics 2019-09-24 2019-09-24 [facility] [id number] 19:14:00 19:14:00 [facility] Medicine Outpati ent Clinics 2019-04-15 2019-04-15 [facility] [id number] 08:40:00 08:40:00 [facility] Medicine Outpati ent Clinics 2019-03-10 2019-03-10 [facility] [id number] 14[facility]40:00 14:40:00 [facility] Medicine Outpati ent Clinics 2019-02-26 2019-02-26 [facility] [id number] 09:40:00 09:40:00 [facility] Medicine Outpati ent Clinics 2019-02-24 2019-02-24 [facility] [id number] 14:16:00 14:16:00 [facility] Medicine Outpati ent Clinics 2018-11-14 2018-11-14 [facility] [id number] 13:30:00 13:30:00 [facility] Medicine Outpati ent Clinics Results Test Description Test Time Test Comments Results Result Comments Source Venous whole blood sodium measurement (moles/volume) 2020-03 00:15:00 Test Item Value Reference Range Interpretation Comme nts Bedside Sodium (test code = 13249-9) 136 mmol/L [facility] whole blood potassium measurement (moles/volume)2020-04-01 00:15:00 Test Item Value Reference Range Interpretation Comments Bedside Potassium (test code = 3.8 mmol/L 65993-1) [facility] whole blood chloride measurement (moles/volume)2020-04-01 00:15:00 Test Item Value Reference Range Interpretation Comments Bedside Chloride (test code = 101 mmol/L 25871-0) [facility] whole blood total carbon dioxide measurement (moles/volume)2020-04-01 00:15:00 Test Item Value Reference Range Interpretation Comments Bedside Total CO2 (test code = 23.0 mmol/L 2026-1) [facility] whole blood urea nitrogen (BUN) measurement (mass/volume)2020-04-01 00:15:00 Test Item Value Reference Range Interpretation Comments Bedside Blood Urea Nitrogen (test 12 mg/dL code = 35217-7) [facility] creatinine measurement (mass/volume) 2020-04-01 00:15:00 Test Item Value Reference Range Interpretation Comments Bedside Creatinine (test code = 2.1 mg/dL 55944-3) [facility] whole blood glucose measurement (mass/volume)2020-04-01 00:15:00 Test Item Value Reference Range Interpretation Comments Bedside Glucose (test code = 99 mg/dL 18100-2) [facility] (moles/volume)2020-04-01 00:15:00 Test Item Value Reference Range Interpretation Comments Bedside Whole Blood Ionized 0.99 mmol/L Calcium (test code = 1994-3) [facility] anion [id number] 00:15:00 Test Item Value Reference Range Interpretation Comments Bedside Anion Gap (test code = 54486-1) 17 [facility] [id number] 00:15:00 Test Item Value Reference Range Interpretation Comments Estimat Glomerular Filtration Rate 37 (test code = 87401-8) [facility] blood hemoglobin measurement (mass/volume)2020-04-01 00:15:00 Test Item Value Reference Range Interpretation Comments Bedside Hemoglobin (test code = 13.9 g/dL 38157-0) [facility] blood hematocrit (volume fraction) 2020-04-01 00:15:00 Test Item Value Reference Range Interpretation Comments Bedside Hematocrit (test code = 41.0 % 47018-4) [facility] blood lactic acid measurement (moles/volume)2020-04-01 00:10:00 Test Item Value Reference Range Interpretation Comments Bedside Lactic Acid Venous (test 1.74 mmol/L code = 2519-7) [facility] or plasma sodium measurement (moles/volume)2020-03-31 11:50:00 Test Item Value Reference Range Interpretation Comments Sodium Level (test code = 2951-2) 135 mmol/L [facility] plasma potassium measurement (moles/volume)2020-03-31 11:50:00 Test Item Value Reference Range Interpretation Comments Potassium Level (test code = 3.7 mmol/L 2823-3) [facility] chloride measurement (moles/volume)2020-03-31 11:50:00 Test Item Value Reference Range Interpretation Comments Chloride Level (test code = 102 mmol/L 5-0) [facility] plasma total carbon dioxide measurement (moles/volume)2020-03-31 11:50:00 Test Item Value Reference Range Interpretation Comments Carbon Dioxide Level (test code = 19 mmol/L 2027-9) [facility] or plasma anion gap determination (moles/volume)2020-03-31 11:50:00 Test Item Value Reference Range Interpretation Comments Anion Gap (test code = 01495-8) 18 [facility] plasma urea nitrogen measurement (mass/volume)2020-03-31 11:50:00 Test Item Value Reference Range Interpretation Comments Blood Urea Nitrogen (test code = 11 mg/dL 3094-0) [facility] or plasma creatinine measurement (mass/volume)2020-03-31 11:50:00 Test Item Value Reference Range Interpretation Comments Creatinine (test code = 2160-0) 1.8 mg/dL [facility] [id number] 11:50:00 Test Item Value Reference Range Interpretation Comments Estimat Glomerular Filtration Rate 44 (test code = 94322-5) [facility] or plasma urea nitrogen/creatinine mass [id number] 11:50:00 Test Item Value Reference Range Interpretation Comments BUN/Creatinine Ratio (test code = 6 3097-3) [facility] or plasma glucose measurement (mass/volume)2020-03-31 11:50:00 Test Item Value Reference Range Interpretation Comments Glucose Level (test code = 2345-7) 98 mg/dL [facility] Serum or Plasma by calculation 2020-03-31 11:50:00 Test Item Value Reference Range Interpretation Comments Calculated Osmolality (test code 269 mosm/kg = 61960-9) [facility] or plasma calcium measurement (mass/volume)2020-03-31 11:50:00 Test Item Value Reference Range Interpretation Comments Calcium Level (test code = 42604-0) 7.8 mg/dL [facility] or plasma total bilirubin measurement (mass/volume)2020-03-31 11:50:00 Test Item Value Reference Range Interpretation Comments Total Bilirubin (test code = 0.8 mg/dL 1974-2) [facility] or plasma total combined glucuronidated bilirubin and albumin bound bilirubin measurement (mass/volume)2020-03-31 11:50:00 Test Item Value Reference Range Interpretation Comments Direct Bilirubin (test code = 0.4 mg/dL 1968-02) [facility] or plasma aspartate aminotransferase measurement (enzymatic activity/volume)2020-03-31 11:50:00 Test Item Value Reference Range Interpretation Comments Aspartate Amino Transf (AST/SGOT) 67 U/L (test code = 1920-8) [facility] alanine aminotransferase measurement (enzymatic activity/volume)2020-03-31 11:50:00 Test Item Value Reference Range Interpretation Comments Alanine Aminotransferase (ALT/SGPT) 42 U/L (test code = 1742-6) [facility] or plasma protein measurement (mass/volume)2020-03-31 11:50:00 Test Item Value Reference Range Interpretation Comments Total Protein (test code = 2885-2) 7.5 g/dL [facility] or plasma albumin measurement (mass/volume)2020-03-31 11:50:00 Test Item Value Reference Range Interpretation Comments Albumin (test code = 1751-7) 4.0 g/dL [facility] globulin measurement by calculation (mass/volume)2020-03-31 11:50:00 Test Item Value Reference Range Interpretation Comments Globulin (test code = 20561-4) 3.5 g/dL [facility] or plasma albumin/globulin mass ratio 2020-03-31 11:50:00 Test Item Value Reference Range Interpretation Comments Albumin/Globulin Ratio (test code = 1.1 1759-0) [facility] or plasma alkaline phosphatase measurement (enzymatic activity/volume)2020-03-31 11:50:00 Test Item Value Reference Range Interpretation Comments Alkaline Phosphatase (test code = 71 U/L 6768-6) [facility] or plasma lipase measurement (enzymatic activity/volume)2020-03-31 11:50:00 Test Item Value Reference Range Interpretation Comments Lipase (test code = 3040-3) 299 U/L [facility] leukocyte count (number/volume)2020-03-31 11:50:00 Test Item Value Reference Range Interpretation Comments White Blood Count (test code = 11.4 10*3/uL 6690-2) [facility] erythrocytes automated count (number/volume)2020-03-31 11:50:00 Test Item Value Reference Range Interpretation Comments Red Blood Count (test code = 4.25 10*6/uL 789-8) [facility] hemoglobin measurement (mass/volume) 2020-03-31 11:50:00 Test Item Value Reference Range Interpretation Comments Hemoglobin (test code = 718-7) 14.5 g/dL [facility] blood hematocrit (volume fraction) 2020-03-31 11:50:00 Test Item Value Reference Range Interpretation Comments Hematocrit (test code = 4544-3) 41.8 % [facility] erythrocyte mean corpuscular volume (MCV) [id number] 11:50:00 Test Item Value Reference Range Interpretation Comments Mean Corpuscular Volume (test code = 98.4 fL 787-2) [facility] mean corpuscular hemoglobin (mass per erythrocyte)2020-03-31 11:50:00 Test Item Value Reference Range Interpretation Comments Mean Corpuscular Hemoglobin (test 34.1 pg code = 785-6) [facility] mean corpuscular hemoglobin concentration measurement (mass/[id number] 11:50:00 Test Item Value Reference Range Interpretation Comments Mean Corpuscular Hemoglobin Concent 34.7 g/dL (test code = 786-4) [facility] [id number] 11:50:00 Test Item Value Reference Range Interpretation Comments Red Cell Distribution Width (test code 12.8 % = 788-0) [facility] platelet count (count/volume) 2020-03-31 11:50:00 Test Item Value Reference Range Interpretation Comments Platelet Count (test code = 105 10*3/uL 777-3) [facility] mean volume [id number] 11:50:00 Test Item Value Reference Range Interpretation Comments Mean Platelet Volume (test code = 10.1 fL 06651-7) [facility] comment 11:50:00 Test Item Value Reference Range Interpretation Comments Manual Differential (test code = ----- 8265-1) [facility] blood segmented neutrophils/100 [id number] 11:50:00 Test Item Value Reference Range Interpretation Comments Neutrophils % (Manual) (test code = 61 % 769-0) [facility] leukocytes 2020-03-31 11:50:00 Test Item Value Reference Range Interpretation Comments Lymphocytes % (Manual) (test code = 23 % 737-7) [facility] blood monocytes/100 leukocytes 2020-03-31 11:50:00 Test Item Value Reference Range Interpretation Comments Monocytes % (Manual) (test code = 14 % 744-3) [facility] blood eosinophil count as percentage of total [id number] 11:50:00 Test Item Value Reference Range Interpretation Comments Eosinophils % (Manual) (test code = 2 % 714-6) [facility] platelet detection by light microscopy 2020-03-31 11:50:00 Test Item Value Reference Range Interpretation Comments Platelet Estimate (test code = Decreased 9317-9) [facility] erythrocyte morphology finding [id number] 11:50:00 Test Item Value Reference Range Interpretation Comments Red Blood Cell Morphology (test code = Normal 6742-1) [facility] comment 02:48:00 Test Item Value Reference Range Interpretation Comments Urine Culture Indicated (test code = Not Ind 8264-4) [facility] Hospital[facility]inal[facility] specimen collection method 2020-03-31 02:48:00 Test Item Value Reference Range Interpretation Comments Urine Source (test code = 60187-5) URINE [facility] color [id number] 02:48:00 Test Item Value Reference Range Interpretation Comments Urine Color (test code = 5778-6) Yellow [facility] clarity [id number] 02:48:00 Test Item Value Reference Range Interpretation Comments Urine Appearance (test code = 59926-1) Clear [facility] pH measurement by automated test strip 2020-03-31 02:48:00 Test Item Value Reference Range Interpretation Comments Urine pH (test code = 81196-1) 5.0 [facility] Urine by Automated test [id number] 02:48:00 Test Item Value Reference Range Interpretation Comments Urine Specific [place] (test code = 1.020 86845-1) [facility] protein measurement by automated test strip (mass/volume)2020-03-31 02:48:00 Test Item Value Reference Range Interpretation Comments Urine Protein (test code = 95934-7) 100 mg/dL [facility] glucose measurement by automated test strip (mass/volume)2020-03-31 02:48:00 Test Item Value Reference Range Interpretation Comments Urine Glucose (UA) (test code Negative mg/dL = 16272-3) [facility] ketones measurement by automated test strip (mass/volume)2020-03-31 02:48:00 Test Item Value Reference Range Interpretation Comments Urine Ketones (test code = 90481-4) 15 mg/dL [facility] erythrocytes count by automated test strip (number/volume)2020-03-31 02:48:00 Test Item Value Reference Range Interpretation Comments Urine Occult Blood (test Negative {Butch}/uL code = 70718-4) [facility] nitrite detection by automated test [id number] 02:48:00 Test Item Value Reference Range Interpretation Comments Urine Nitrite (test code = 88981-8) Negative [facility] total bilirubin measurement by automated test strip (mass/volume)2020-03-31 02:48:00 Test Item Value Reference Range Interpretation Comments Urine Bilirubin (test code = 38926-5) 1 mg/dL [facility]irmat[facility] urine bilirubin measurement 2020-03-31 02:48:00 Test Item Value Reference Range Interpretation Comments Urine Ictotest (test code = 09726-3) Positive [facility] urobilinogen measurement by automated test strip (mass/volume)2020-03-31 02:48:00 Test Item Value Reference Range Interpretation Comments Urine Urobilinogen (test code = 4.0 mg/dL 73919-4) [facility] leukocytes count by automated test strip (number/volume)2020-03-31 02:48:00 Test Item Value Reference Range Interpretation Comments Urine Leukocyte Esterase (test 25 {Zohaib}/uL code = 34748-2) [facility] HospitalMicroscopic examination of [id number] 02:48:00 Test Item Value Reference Range Interpretation Comments Microscopic Urinalysis (T) (test code = ----- 47840-2) [facility] sediment erythrocyte count by microscopy (number/high power field)2020-03-31 02:48:00 Test Item Value Reference Range Interpretation Comments Urine RBC (test code = None Seen /[HPF] 93025-6) [facility] sediment leukocyte count by microscopy (number/high power field)2020-03-31 02:48:00 Test Item Value Reference Range Interpretation Comments Urine WBC (test code = 5821-4) 0-5 /[HPF] [facility] sediment epithelial cell count by microscopy (number/high power field)2020-03-31 02:48:00 Test Item Value Reference Range Interpretation Comments Urine Epithelial Cells (test code Few /[HPF] = 5787-7) [facility] sediment crystal count by microscopy (number/high power field)2020-03-31 02:48:00 Test Item Value Reference Range Interpretation Comments Urine Crystals (test code = None Seen /[HPF] 94374-0) [facility] sediment detection in urine sediment by light [id number] 02:48:00 Test Item Value Reference Range Interpretation Comments Urine Amorphous Sediment Moderate /[HPF] (test code = 8246-1) [facility] sediment bacteria count by microscopy (number/high power field)2020-03-31 02:48:00 Test Item Value Reference Range Interpretation Comments Urine Bacteria (test code = None Seen /[HPF] 5769-5) [facility] sediment casts count by microscopy (number/low power field)2020-03-31 02:48:00 Test Item Value Reference Range Interpretation Comments Urine Casts (test code = Present /[LPF] 9842-6) [facility] sediment hyaline cast count by microscopy (number/low power field)2020-03-31 02:48:00 Test Item Value Reference Range Interpretation Comments Urine Hyaline Casts (test code = 2-5 /[LPF] 5796-8) [facility] in [facility] sediment by microscopy (number/low power field )2020-03-31 02:48:00 Test Item Value Reference Range Interpretation Comments Urine Fine Granular Casts (test 6-10 /[LPF] code = 47610-9) [facility] HospitalYeast detection in urine sediment by light [id number] 02:48:00 Test Item Value Reference Range Interpretation Comments Urine Yeast (test code = None Seen /[HPF] 50577-2) [facility] comment 02:48:00 Test Item Value Reference Range Interpretation Comments Urinalysis Comment (test code = 8262-8) * [facility]
[2021-01-29 06:31] LABS: Absolute Lymphocytes (CBC) 2.4 K/uL (0.7-4.9); Basophils % 0.4 % (0-1.3); Hematocrit 41.7 % (39.6-49.0); Lymphocytes % 41.8 % (15.3-44.8); MPV 8.6 fL (7.6-11.3); RBC Red Blood Cell Count 4.37 M/uL (4.33-5.43)
[2021-01-29 06:37] LABS: Protime INR 1.21
[2021-01-29 06:54] LABS: ALT/SGPT 48 U/L (12-78); AST/SGOT 111 U/L (15-37); Albumin 3.6 g/dL (3.4-5.0); Alkaline Phosphatase 201 U/L (45-117); BUN Blood Urea Nitrogen 7 mg/dL (7-18); Bicarbonate 23 mmol/L (21-32); Bilirubin Direct 0.6 mg/dL (0-0.2); Glucose Level 110 mg/dL (74-106); NT PRO-BNP 24 pg/mL (<125); Potassium 3.6 mmol/L (3.5-5.1); Protein, Total 8.7 g/dL (6.4-8.2); Sodium Level 140 mmol/L (136-145); Troponin (Emerg Dept Use Only) < 0.02 ng/mL (0.0-0.045)
[2021-01-29] MEDS ORDERED: MORPHINE 4 MG/ML SYR ONE (07:11)
[2021-01-29] MEDS ORDERED: ONDANSETRON 4 MG/2 ML VIAL ONE ×2 (07:12→08:19)
[2021-01-29 07:48] LABS: Blood Morphology Comment NOT SEEN (NOT SEEN); Platelet Estimate DECR; White Blood Cell Scan OK (OK)
--- NOTE | 2021-01-29 07:53 | ER ---
Nurse's Notes [facility] Name: Sung Brown Jr Age: 45 yrs Sex: Male : 1975 Arrival Date: 01/29/2021 Time: 05:59 Bed 6 Private MD: Diagnosis: Chest pain, unspecified;Abdominal tenderness;Alcoholic cirrhosis of liver without ascites;Chronic obstructive pulmonary disease with (acute) exacerbation;Obesity, unspecified;Tobacco abuse counseling;Tobacco use;Alcohol abuse Presentation: 01/29 06:04 Chief complaint: Patient states: right testicular pain and swelling X 2 days , pain iw goes up into his sides and also has chest pain, hx of stage IV liver disease. Coronavirus screen: At this time, the client does not indicate any symptoms associated with coronavirus-19. Ebola Screen: Patient negative for fever greater than or equal to 101.5 degrees Fahrenheit, and additional compatible Ebola Virus Disease symptoms Patient denies exposure to infectious person. Patient denies travel to an Ebola-affected area in the 21 days before illness onset. No symptoms or risks identified at this time. Initial Sepsis Screen: Does the patient meet any 2 criteria? No. Patient's initial sepsis screen is negative. Does the patient have a suspected source of infection? No. Patient's initial sepsis screen is negative. Risk Assessment: Do you want to hurt yourself or someone else? Patient reports no desire to harm self or others. Onset of symptoms was January 27, 2021. 06:04 Method Of Arrival: Ambulatory iw 06:04 Acuity: CINTIA 3 iw Triage Assessment: 06:30 General: Appears in no apparent distress. Behavior is calm, cooperative. Pain: ak2 Complains of pain in chest, abdomen and pelvis. Cardiovascular: No deficits noted. Historical: - Allergies: 06:07 NKDA; iw - Home Meds: 06:07 Albuterol Inhl [Active]; carvedilol 25 mg Oral tab 1 tab daily [Active]; iw chlordiazepoxide HCl 10 mg Oral cap 1 cap 3 times per day [Active]; Cozaar 50 mg Oral tab 1 tab once daily [Active]; fluoxetine 20 mg Oral cap 1 cap once daily [Active]; gabapentin 300 mg Oral cap 1 cap 3 times per day [Active]; hydrocodone-acetaminophen 5-325 mg Oral tab 1 tab every 6 hours [Active]; lorazepam 1 mg Oral tab once daily [Active]; omeprazole 40 mg Oral cpDR 1 cap once daily [Active]; Symbicort inhalation [Active]; thiamine HCl (vitamin B1) 100 mg Oral tab [Active]; - PMHx: 06:07 ADD/ADHD; COPD; Hepatitis; Hypertension; WPW; iw - PSHx: 06:07 Cholecystectomy; multiple ortho procedures; cardiac ablation; iw - Immunization history:: Adult Immunizations up to date, Client reports having NOT received the Covid vaccine. - Social history:: Smoking status: Patient reports the use of cigarette tobacco products, smokes one-half pack cigarettes per day, Patient uses alcohol, drink s a few times per week . street drugs, marijuana. Screenin:29 Abuse screen: Denies threats or abuse. Denies injuries from another. Nutritional ak2 screening: No deficits noted. Tuberculosis screening: No symptoms or risk factors identified. Fall Risk None identified. Vital Signs: 06:04 BP 140 / 89; Pulse 77; Resp 16; Temp 98.6; Pulse Ox 95% on R/A; iw 06:39 BP 130 / 85; Pulse 81; Resp 16; Pulse Ox 96% on R/A; ak2 07:00 BP 137 / 84; Pulse 84; Resp 20; Pulse Ox 95% ; kg 08:00 BP 145 / 82; Pulse 96; Resp 18; Pulse Ox 95% ; kg 09:00 BP 150 / 80; Pulse 90; Resp 20; Pulse Ox 95% on R/A; kg 10:00 BP 125 / 65; Pulse 82; Resp 20; Pulse Ox 98% on R/A; Pain 5/10; kg ED Course: 05:59 Patient arrived in ED. es 06:06 Triage completed. iw 06:08 Arm band placed on. iw 06:09 Raf Raymundo is Primary Nurse. ak2 06:09 Julio Chow MD is Attending Physician. tw4 06:29 No apparent distress. ak2 06:29 Patient has correct armband on for positive identification. monitoring manager on. ak2 06:29 No provider procedures requiring assistance completed. Inserted saline lock: 20 gauge ak2 in right antecubital area, using aseptic technique. Patient maintains SpO2 saturation greater than 95% on room air. 06:43 XRAY Chest (1 view) In Process Unspecified. EDMS 06:59 Primary Nurse role handed off by Raf Raymundo kg 06:59 Elisabeth Galindo is Primary Nurse. kg 07:19 Attending Physician role handed off by Julio Chow MD supa 07:19 Ganesh Wheeler MD is Attending Physician. supa 07:50 Bessy Headley MD is Hospitalizing Provider. supa 08:33 Scrotum Testicles US In Process Unspecified. EDMS 08:35 CT Aorta for Dissection In Process Unspecified. EDMS 09:48 Troponin I Sent. kg Administered Medications: 06:55 Drug: Zofran (Ondansetron) 4 mg Route: IVP; Site: right antecubital; ak2 06:56 Drug: morphine 4 mg Route: IVP; Site: right antecubital; ak2 08:07 Drug: ProTONIX (pantoprazole) 40 mg Route: IVP; Site: right antecubital; kg 08:07 Drug: Dilaudid (HYDROmorphone) 1 mg Route: IVP; Site: right antecubital; kg 08:07 Drug: Zofran (Ondansetron) 4 mg Route: IVP; Site: right antecubital; kg 08:07 Drug: Aspirin 162 mg Route: PO; kg 10:43 Follow up: Response: No adverse reaction kg 08:07 Drug: Xopenex (levalbuterol) 1.25 mg Route: Inhalation; kg 10:44 Follow up: Response: No adverse reaction; Marked relief of symptoms kg 08:07 Drug: AtroVENT (ipratropium) Aerosol 0.5 mg Route: Inhalation; kg 10:44 Follow up: Response: No adverse reaction; Marked relief of symptoms kg Outcome: 07:52 Decision to Hospitalize by Provider. supa 11:02 Patient left the ED. Signatures: Dispatcher [employer] EDMN Ganesh Wheeler MD MD cha Salyer, Edna es Williams, Irene, RN RN Roma Schrader RN RN Julio Chow MD MD tw4 Elisabeth Galindo RN RN Raf Raymundo ak2
--- NOTE | 2021-01-29 07:54 | EDPHYS ---
Physician Documentation [facility] Name: Sung Brown Jr Age: 45 yrs Sex: Male : 1975 Arrival Date: 01/29/2021 Time: 05:59 Bed 6 Private MD: SADA Physician Ganesh Wheeler HPI: 01/29 07:12 This 45 yrs old Male presents to ER via Ambulatory with complaints of Chest tw4 Pain, Flank Pain, Testicular Pain. 07:12 The patient or guardian reports chest pain that is located primarily in the anterior tw4 chest wall. Onset: today. The pain does not radiate. Associated signs and symptoms: The patient has no apparent associated signs or symptoms. The chest pain is described as aching. Severity of pain: At its worst the pain was moderate in the emergency department the pain is unchanged. 07:13 The patient presents with scrotal pain, of the left side. Onset: The symptoms/episode tw4 began/occurred 2 day(s) ago. Modifying factors: The symptoms are alleviated by nothing, the symptoms are aggravated by nothing. Historical: - Allergies: 06:07 NKDA; iw - Home Meds: 06:07 Albuterol Inhl [Active]; carvedilol 25 mg Oral tab 1 tab daily [Active]; iw chlordiazepoxide HCl 10 mg Oral cap 1 cap 3 times per day [Active]; Cozaar 50 mg Oral tab 1 tab once daily [Active]; fluoxetine 20 mg Oral cap 1 cap once daily [Active]; gabapentin 300 mg Oral cap 1 cap 3 times per day [Active]; hydrocodone-acetaminophen 5-325 mg Oral tab 1 tab every 6 hours [Active]; lorazepam 1 mg Oral tab once daily [Active]; omeprazole 40 mg Oral cpDR 1 cap once daily [Active]; Symbicort inhalation [Active]; thiamine HCl (vitamin B1) 100 mg Oral tab [Active]; - PMHx: 06:07 ADD/ADHD; COPD; Hepatitis; Hypertension; WPW; iw - PSHx: 06:07 Cholecystectomy; multiple ortho procedures; cardiac ablation; iw - Immunization history:: Adult Immunizations up to date, Client reports having NOT received the Covid vaccine. - Social history:: Smoking status: Patient reports the use of cigarette tobacco products, smokes one-half pack cigarettes per day, Patient uses alcohol, drink s a few times per week . street drugs, marijuana. ROS: 07:13 Constitutional: Negative for fever, chills, and weight loss, Eyes: Negative for injury, tw4 pain, redness, and discharge, Respiratory: Negative for shortness of breath, cough, wheezing, and pleuritic chest pain, Abdomen/GI: Negative for abdominal pain, nausea, vomiting, diarrhea, and constipation, Back: Negative for injury and pain. 07:13 Skin: Negative for injury, rash, and discoloration, Neuro: Negative for headache, weakness, numbness, tingling, and seizure. 07:13 Cardiovascular: Positive for chest pain, Negative for edema, orthopnea, palpitations. 07:13 : Positive for testicular pain Exam: 07:13 Constitutional: This is a well developed, well nourished patient who is awake, alert, tw4 and in no acute distress. Head/Face: Normocephalic, atraumatic. Chest/axilla: Normal chest wall appearance and motion. Nontender with no deformity. No lesions are appreciated. Cardiovascular: Regular rate and rhythm with a normal S1 and S2. No gallops, murmurs, or rubs. Normal PMI, no JVD. No pulse deficits. Respiratory: Lungs have equal breath sounds bilaterally, clear to auscultation and percussion. No rales, rhonchi or wheezes noted. No increased work of breathing, no retractions or nasal flaring. Abdomen/GI: Soft, non-tender, with normal bowel sounds. No distension or tympany. No guarding or rebound. No evidence of tenderness throughout. Back: No spinal tenderness. No costovertebral tenderness. Full range of motion. 07:13 : Male external genitalia: tenderness, of the right testicle is noted. 07:57 ECG was reviewed by the Attending Physician. supa Vital Signs: 06:04 BP 140 / 89; Pulse 77; Resp 16; Temp 98.6; Pulse Ox 95% on R/A; iw 06:39 BP 130 / 85; Pulse 81; Resp 16; Pulse Ox 96% on R/A; ak2 07:00 BP 137 / 84; Pulse 84; Resp 20; Pulse Ox 95% ; kg 08:00 BP 145 / 82; Pulse 96; Resp 18; Pulse Ox 95% ; kg 09:00 BP 150 / 80; Pulse 90; Resp 20; Pulse Ox 95% on R/A; kg 10:00 BP 125 / 65; Pulse 82; Resp 20; Pulse Ox 98% on R/A; Pain 5/10; kg MDM: 07:19 Patient medically screened. supa 07:19 Patient medically screened. supa 07:55 Differential diagnosis: abnormal EKG, anxiety, coronary artery disease nonspecific supa abdominal pain, urethritis, herpes zoster, pancreatitis, peptic ulcer disease, pneumonia, stable angina, thoracic aortic disection, unstable angina. HEART Score: History: Moderately Suspicious (1), ECG: Non specific repolarization disturbance / LBTB / PM (1), Age: < or = 45 years (0), Risk Factors: > or = 3 Risk factors for atherosclerotic disease (2), [Hypercholesterolemia] [Hypertension] [Active Smoker] [+ Family HX] [Obesity] Troponin: < or = 1 x Normal Limit (0). The patient was given aspirin in the Emergency Department. The patient's deep vein thrombosis risk score was calculated as follows: Total Score: 0. This patient was found to be at low risk for a deep vein thrombosis by using the Well's assessment criteria. The patient's pulmonary embolism risk score was calculated as follows: Total Score: 0-2 points. This patient was found to be at low risk for a pulmonary embolism by using the Well's assessment criteria. JAQUELINE Risk Score: 1 - Three or more CAD risk factors, 1- Known CAD, TOTAL SCORE = 2. Data reviewed: vital signs, nurses notes, lab test result(s), EKG, radiologic studies, CT scan, plain films. Data interpreted: sausage linker: rate is 96 beats/min, rhythm is regular, Pulse oximetry: on room air is 96 %. Test interpretation: by ED physician or midlevel provider: ECG, plain radiologic studies. Counseling: I had a detailed discussion with the patient and/or guardian regarding: the historical points, exam findings, and any diagnostic results supporting the discharge/admit diagnosis, lab results, radiology results, the need for further work-up and treatment in the hospital. 01/29 06:10 Order name: Basic Metabolic Panel [facility] 01/29 06:10 Order name: CBC with Diff 01/29 06:10 Order name: LFT's 01/29 06:10 Order name: Magnesium tw4 01/29 06:10 Order name: NT PRO-BNP; Complete Time: 07:34 tw4 01/29 06:10 Order name: PT-INR; Complete Time: 07:34 tw4 01/29 06:10 Order name: Troponin (emerg Dept Use Only); Complete Time: 07:34 tw4 01/29 06:10 Order name: Basic Metabolic Panel; Complete Time: 07:34 EDMS 01/29 06:10 Order name: CBC with Automated Diff; Complete Time: 07:48 EDMS 01/29 06:10 Order name: Liver (Hepatic) Function; Complete Time: 07:34 EDMS 01/29 06:10 Order name: Magnesium; Complete Time: 07:34 EDMS 01/29 07:45 Order name: AMMONIA [facility] 01/29 07:47 Order name: CBC Smear Scan; Complete Time: 07:48 EDMS 01/29 06:10 Order name: XRAY Chest (1 view) tw4 01/29 07:15 Order name: Scrotum Testicles US tw4 01/29 07:45 Order name: CT Aorta for Dissection [facility] 01/29 09:29 Order name: Lipase EDNV 01/29 09:33 Order name: Lipase EDMS 01/29 09:33 Order name: Troponin I EDMS 01/29 09:33 Order name: Troponin I EDMS 05 09:35 Order name: SARS-COV-2 RT PCR EDNV 01/29 06:10 Order name: EKG; Complete Time: 06:10 tw4 01/29 06:10 Order name: Cardiac monitoring; Complete Time: 07:28 tw4 01/29 06:10 Order name: EKG - Nurse/Tech; Complete Time: 06:29 tw4 01/29 06:10 Order name: IV Saline Lock; Complete Time: 07:29 tw4 01/29 06:10 Order name: Labs collected and sent; Complete Time: 07:29 tw4 01/29 06:10 Order name: O2 Per Protocol; Complete Time: 07:29 tw4 01/29 06:10 Order name: O2 Sat Monitoring; Complete Time: 07:29 tw4 01/29 09:33 Order name: Heart Healthy; Complete Time: 09:48 EDMS 01/29 10:27 Order name: Labs - recollect needed: recollect lipase eb EC:13 Rate is 85 beats/min. Rhythm is regular. QRS [place] is Normal. [place] interval is normal. QT tw4 interval is normal. No Q waves. T waves are Normal. No ST changes noted. Clinical impression: Normal ECG. Interpreted by me. Reviewed by me. 07:57 Rate is 85 beats/min. Rhythm is regular. QRS [place] is Normal. [place] interval is normal. QRS supa interval is normal. QT interval is normal. No Q waves. T waves are Normal. No ST changes noted. Clinical impression: NSR w/ Non-specific ST/T Changes and No evidence of ischemia. Interpreted by me. Reviewed by me. Administered Medications: 06:55 Drug: Zofran (Ondansetron) 4 mg Route: IVP; Site: right antecubital; ak2 06:56 Drug: morphine 4 mg Route: IVP; Site: right antecubital; ak2 08:07 Drug: ProTONIX (pantoprazole) 40 mg Route: IVP; Site: right antecubital; kg 08:07 Drug: Dilaudid (HYDROmorphone) 1 mg Route: IVP; Site: right antecubital; kg 08:07 Drug: Zofran (Ondansetron) 4 mg Route: IVP; Site: right antecubital; kg 08:07 Drug: Aspirin 162 mg Route: PO; kg 10:43 Follow up: Response: No adverse reaction kg 08:07 Drug: Xopenex (levalbuterol) 1.25 mg Route: Inhalation; kg 10:44 Follow up: Response: No adverse reaction; Marked relief of symptoms kg 08:07 Drug: AtroVENT (ipratropium) Aerosol 0.5 mg Route: Inhalation; kg 10:44 Follow up: Response: No adverse reaction; Marked relief of symptoms kg Disposition: 01/29/21 07:52 Hospitalization ordered by Bessy Headley for Observation. Preliminary diagnosis are Chest pain, unspecified, Abdominal tenderness, Alcoholic cirrhosis of liver without ascites, Chronic obstructive pulmonary disease with (acute) exacerbation, Obesity, unspecified, Tobacco abuse counseling, Tobacco use, Alcohol abuse. - Bed requested for Telemetry/MedSurg (observation). - Status is Observation. ss - Condition is Stable. - Problem is new. - Symptoms have improved. Signatures: Dispatcher [employer] Joy Quijano RN RN kl Anderson, Corey, MD MD cha Williams Lesli, RN RN Roma Schrader RN RN ss Julio Chow MD MD tw4 Theresa Roque Kristen, RN RN kg Raf Raymundo2 Corrections: (The following items were deleted from the chart) 08:38 07:46 CORONAVIRUS+Z ordered. EDMS EDMS 09:57 07:52 Hospitalization Ordered by Bessy Headley MD for Observation. Preliminary kl diagnosis is Chest pain, unspecified; Abdominal tenderness; Alcoholic cirrhosis of liver without ascites; Chronic obstructive pulmonary disease with (acute) exacerbation; Obesity, unspecified; Tobacco abuse counseling; Tobacco use; Alcohol abuse. Bed requested for Telemetry/MedSurg (observation). Status is Observation. Condition is Stable. Problem is new. Symptoms have improved. [facility] 10:00 09:57 01/29/2021 07:52 Hospitalization Ordered by Bessy Headley MD for Observation. Preliminary diagnosis is Chest pain, unspecified; Abdominal tenderness; Alcoholic cirrhosis of liver without ascites; Chronic obstructive pulmonary disease with (acute) exacerbation; Obesity, unspecified; Tobacco abuse counseling; Tobacco use; Alcohol abuse. Bed requested for Telemetry/MedSurg (observation). Status is Observation. Condition is Stable. Problem is new. Symptoms have improved. 11:02 10:00 01/29/2021 07:52 Hospitalization Ordered by Bessy Headley MD for Observation. Preliminary diagnosis is Chest pain, unspecified; Abdominal tenderness; Alcoholic cirrhosis of liver without ascites; Chronic obstructive pulmonary disease with (acute) exacerbation; Obesity, unspecified; Tobacco abuse counseling; Tobacco use; Alcohol abuse. Bed requested for Telemetry/MedSurg (observation). Status is Observation. Condition is Stable. Problem is new. Symptoms have improved. kl
[2021-01-29] MEDS ORDERED: IPRATROPIUM BROM 0.5MG/2.5ML ONE (08:16)
[2021-01-29] MEDS ORDERED: ASPIRIN 81 MG CHEWABLE TABLET ONE (08:16)
[2021-01-29] MEDS ORDERED: PANTOPRAZOLE 40 MG INJ ONE (08:16)
[2021-01-29] MEDS ORDERED: LEVALBUTEROL 1.25 MG/3 ML NEB ONE (08:16)
[2021-01-29] MEDS ORDERED: HYDROMORPHONE HCL 1 MG/ML INJ ONE (08:19)
--- NOTE | 2021-01-29 09:07 | RAD REPORT ---
EXAM DESCRIPTION: CT - Angio Aorta For Dissection - 01/29/2021 8:35 am CLINICAL HISTORY: Chest pain radiating to the back. Chest pain;Dissection;Dyspnea COMPARISON: Angio Aorta For Dissection dated 02/19/2019; Abdomen Pelvis W Contrast dated 0 TECHNIQUE: CT angiography of the aorta was performed with MIPs. All CT scans are performed using dose optimization technique as appropriate and may include automated exposure control or mA/KV adjustment according to patient size. FINDINGS: A left aortic arch is present with normal branching pattern of the great vessels.No acute aortic finding is seen such as aneurysm, penetrating ulcer or dissection. The celiac axis, SMA, CRISTHIAN and renal arteries are patent. No evidence of pulmonary embolism. The lungs are clear. The liver appears enlarged with nodular contour most compatible with cirrhosis. Several vague low-den sity liver lesions are seen, largest in the inferior most aspect of the right measuring 16 mm, unchan ged since recent most comparative CT dated 06/16/2020.No biliary dilatation. Cholecystectomy.The sple en is mildly enlarged. The pancreas, adrenal glands and kidneys are within normal limits for arterial phase imaging. No bowel obstruction, free fluid or abscess.No pathologic enlarged lymphadenopathy identified. No fracture or worrisome bone lesion seen. IMPRESSION: No acute aortic finding is demonstrated. Mild liver cirrhosis with significant fatty liver infiltration pattern seen. Mild hepatosplenomegaly. Several vague low-density hepatic lesions are present. Nonemergent follow-up MRI liver protocol woul d be suggested for further evaluation.
[2021-01-29] MEDS ORDERED: ACETAMINOPHEN 500 MG TAB PO PRN (09:30)
[2021-01-29 11:13] VITALS: O2SAT 98
[2021-01-29] MEDS: MORPHINE 4 MG/ML SYR IV PRN ×3 (12:11→21:26)
[2021-01-29] MEDS: ALPRAZOLAM 0.25 MG TABLET PO PRN ×2 (12:12→22:20)
[2021-01-29 12:13] VITALS: BMI 34.4
--- NOTE | 2021-01-29 12:13 | RAD REPORT ---
EXAM DESCRIPTION: RAD - Chest Single View - 01/29/2021 6:42 am CLINICAL HISTORY: CHEST PAIN Chest pain. COMPARISON: Chest Single View dated 06/03/2020; Chest Single View dated 06/02/2020; Chest Single View dated 04/17/2019; Chest Single View dated 02/19/2019 FINDINGS: Portable technique limits examination quality. The lungs are grossly clear. The heart is normal in size. No displaced fractures. IMPRESSION: No acute intrathoracic process suspected.
--- NOTE | 2021-01-29 12:57 | RAD REPORT ---
EXAM DESCRIPTION: US - Scrotum Testicles - 01/29/2021 8:33 am CLINICAL HISTORY: PAIN Pain and swelling COMPARISON: Scrotum Testicles dated 08/07/2018 FINDINGS: The right testicle 4.2 x 2.9 x 2.3 cm. No intratesticular masses or evidence of testicular torsion. The left testicle 3.7 x 2.5 x 2.1 cm. No intratesticular masses or evidence of testicular torsion. Both epididymides are normal in size and appearance. No pathologic fluid collections. Small left varicocele likely present. IMPRESSION: No testicular torsion or intratesticular mass seen. Small left varicocele.
[2021-01-29] MEDS ORDERED: chlordiazePOXIDE HCl 5 MG CAP PO SCH (18:00)
[2021-01-29] MEDS ORDERED: NA CHLORIDE 0.9% 1,000 ML IV SCH (18:00)
[2021-01-29] MEDS ORDERED: METOPROLOL TAR 50 MG TAB PO SCH (21:00)
[2021-01-29 21:09] VITALS: BP 138/75; TEMP 98.5
[2021-01-30] MEDS ORDERED: ASPIRIN EC 81 MG TAB PO SCH (09:00)
[2021-01-30] MEDS ORDERED: ENOXAPARIN 40 MG/0.4 ML SQ SCH (09:00)
== END 2021-01-29 22:51 | disposition left against medical advice (07) ==
LOC: ER 05:55 → ERHOLD 09:30 → 2ND 10:17
PROVIDERS: ADMIT Hospitalist; ATTEND Hospitalist
DX: R07.9 Chest pain, unspecified (principal); Z53.29 Procedure and treatment not carried out because of patient's decision for other reasons; R10.819 Abdominal tenderness, unspecified site; K70.30 Alcoholic cirrhosis of liver without ascites; J44.1 Chronic obstructive pulmonary disease with (acute) exacerbation; I45.6 Pre-excitation syndrome; F90.9 Attention-deficit hyperactivity disorder, unspecified type; F10.10 Alcohol abuse, uncomplicated; E66.9 Obesity, unspecified; Z68.34 Body mass index [BMI] 34.0-34.9, adult; F17.210 Nicotine dependence, cigarettes, uncomplicated; Z71.6 Tobacco abuse counseling; Z90.49 Acquired absence of other specified parts of digestive tract; Z20.822 Contact with and (suspected) exposure to COVID-19
CPT/HCPCS: 93005; 85025; 80048; 36415; 82140; 83735; 85610; 80076; 84484 ×3; 83690; 83880; 71275; 74175; 71045; 76870; 96375; 96374; 99285; U0003; Q9967; C9113; J1170; J7030; J2405 ×2; G0378 ×2

== ENCOUNTER 2021-03-29 23:34 | Emergency (ER) | payer OTHER ==
--- OUTSIDE RECORDS SUMMARY | 2021-03-29 23:38 | XMS REPORT | Continuity of Care Document ---
:1975 Author Organization [facility] t Address [address] [place] [address] Care Team Providers Name Role Phone FOUND, NOT Primary Care Physician Unavailable Advance Directives Directive Decision Effective Date Termination Date Comments Sour ce Yes N/A [facility] - Gallo [facility] bernie Problems Condition Condition Condition Status Onset Resolution Last Treating Co mments Source Name Details Category Date Date Treatment Clinician Date Problem Condition [facility] GERD GERD Diagnosis Active [facility] (gastroeso (gastroeso Krista kes - phageal phageal Memoria reflux reflux l disease) disease) Outpat i ent Clinics Alcoholic Alcoholic Diagnosis Active [facility] fatty fatty [facility] liver liver [facility] COPD COPD Diagnosis Active [facility] (chronic (chronic [facility] - obstructiv obstructiv Me moria e e l pulmonary pulmonary Outp ati disease) disease) ent Clinics Nicotine Nicotine Diagnosis Active [facility] dependence dependence Krista kes - [facility] Hypertensi Hypertensi Diagnosis Active [facility] Chronic Chronic Diagnosis Active [facility] pain pain [facility] - syndrome syndrome [facility] Outpat[facility] ent Clinics Depression Depression Problem Active [facility] with with [facility] - anxiety anxiety [facility] Anxiety Anxiety Problem Active [facility] Alcoholism Alcoholism Problem Active [facility] Allergies, Adverse Reactions, Alerts Allergy Allergy Status Severity Reaction(s) Onset Inactive Treating Comm ents Source Name Type Date Date Clinician Lisinopr Adverse Active severe [facility] Reaction fatigue [facility] Social History Social Habit Start Date Stop Date Quantity Comments Source Sex Assigned At [birth year] Male LON Ni 00:00:00 00:00:00 [facility] Smoking Status Start Date Stop Date Source Unknown if ever smoked [facility] Medications Ordered Filled Start Stop Current Ordering Indication Dosage Frequency Signature Comments Components Source Medication Medication Date Date Medication? Clinician (SIG) Name Name Omeprazole Omeprazole Yes Jennifer [address] [facility] 1-29 [place] 30 minutes [facility] - 00:00: before [facility]oria 00 morning l meal [facility] HydrOXYzine HydrOXYzine Yes Jennifer [address] [facility] HCl HCl 8-20 [place] as needed [facility] - 00:00: [facility] 00 l [facility]ics Escitalopra Escitalopra Yes Jennifer [address] [facility] m Oxalate m Oxalate 7-15 [place] Luke s - 00:00: Memoria 00 [facility] ent Clinics Albuterol No 2 CHRISTU (Proair Hfa S - Inh) 8 [facility]m [facility] Carvedilol No 25mg [facility] (Coreg) 25 S - Mg TAB [facility] Chlordiazep No 25mg [facility] oxide S - (Librium) [place] 25 Mg CAP [facility] Fluoxetine No 20mg [facility] Hcl S - (Prozac) 20 [place] Mg CAP [facility] Folic Acid No 1mg [facility] (Folvite) 1 S - Mg TAB [facility] Losartan No 50mg [facility] Potassium S - (Cozaar) 50 [place] Mg TAB [facility] Omeprazole No 40mg [facility] (Prilosec) S - 40 Mg CPDR [facility] Thiamine No 100mg [facility] Hcl S - (Vitamin [place] B-1) 100 Mg Memoria TAB l Hospita l Albuterol Albuterol Yes Jennifer 3 ml [address] [facility] Sulfate Sulfate [place] [facility] Esomeprazol Esomeprazol Yes Jennifer TAKE [address] [facility] e Magnesium e Magnesium [place] CAPSULE BY [facility] - MOUTH Memoria EVERY DAY l [facility] Symbicort Symbicort Yes Jennifer inhale [address] [facility] [place] puffs by [facility] - mouth [facility] twice l daily [facility] Viberzi Viberzi Yes Jennifer [address] [facility] [place] with food [facility] Proctofoam Proctofoam Yes Jennifer [address] [facility] [place] applicatio [facility] - n as [facility] needed l [facility] Gabapentin Gabapentin Yes Jennifer TAKE ONE [facility] [place] CAPSULE BY [facility] - MOUTH 3 Memoria TIMES A l DAY [facility] Losartan Losartan Yes Jennifer TAKE [address] [facility] Potassium Potassium [place] TABLET BY [facility] - MOUTH Memoria EVERY DAY l [facility] Ventolin Ventolin Yes Jennifer [address] HFA HFA [place] inhaled [facility] - every 4-6 Memoria hours as l needed [facility] Chlordiazep Chlordiazep Yes Jennifer (Schedule [facility] oxide HCl oxide HCl [place] IV Drug) [facility] - TK 1 C PO Memoria TID l [facility] Nicotine Nicotine Yes Jennifer [address] [facility] [place] skin [facility] Carvedilol Carvedilol Yes Jennifer 1 tab(s) [address] [facility] [place] times a [facility] - day orally [facility] l [facility] Clinics Vital Signs Vital Name Observation Time Observation Value Comments Source Heart Rate 2020-04-01 05:01:00 75 /min [facility] Respiratory rate 2020-04-01 05:01:00 16 /min [facility] BP Systolic 2020-04-01 05:01:00 102 [facility] 2020-04-01 05:01:00 59 mm[Hg] [facility] Heart Rate 2020-04-01 04:21:00 75 /min [facility] Hospit al Respiratory rate 2020-04-01 04:21:00 16 /min [facility] Hospit al BP Systolic 2020-04-01 04:21:00 102 [facility]Hg[facility] Di[facility] 2020-04-01 04:21:00 59 mm[Hg] LON Ni [facility] Procedures Procedure Date / Time Performed Performing Clinician Sour e Computed tomography of 2020-03-31 00:00:00 KALYN Ni abdomen and pelvis [facility] without contrast Plan of Care Planned Activity Planned Date Details Comments Source Goal Patient referral [code = JENNY Ni [id number] ] [facility] Instructions [facility] Encounters Start End Encounter Admission Attending Care Care Encounter Source Date/Time Date/Time Type Type Clinicians Facility Department ID 2020-03-31 2020-04-01 Departed GAYLA Ni [id number] [facility] 23:29:00 04:32:[address] 2020-03-05 2020-03-05 [facility] [id number] 08:20[facility]00 08:20:00 [facility] Outpati ent Clinics 2019-09-24 2019-09-24 [facility] [id number] [facility] 19:14:00 19:14:00 [facility] Outpati [facility] Clinics 2019-04-15 2019-04-15 [facility] [id number] 08:40:00 08:40:00 [facility] Medicine Outpati [facility] Clinics 2019-03-10 2019-03-10 [facility] [id number] 14[facility]40:00 14:40:00 [facility] Outpati [facility] Clinics 2019-02-26 2019-02-26 [facility] [id number] 09:40:00 09:40:00 [facility] Outpat[facility] Clinics 2019-02-24 2019-02-24 [facility] [id number] 14:16:00 14:16:00 [facility] Outpat[facility] Clinics 2018-11-14 2018-11-14 [facility] [id number] 13:30:00 13:30:00 t [facility] Medicine Outpati ent Clinics Results Test Description Test Time Test Comments Results Result Comments Source Venous whole blood sodium measurement (moles/volume) 2020-03 00:15:00 Test Item Value Reference Range Interpretation Comme nts Bedside Sodium (test code = 13821-2) 136 mmol/L [facility] whole blood potassium measurement (moles/volume)2020-04-01 00:15:00 Test Item Value Reference Range Interpretation Comments Bedside Potassium (test code = 3.8 mmol/L 10046-1) [facility] whole blood chloride measurement (moles/volume)2020-04-01 00:15:00 Test Item Value Reference Range Interpretation Comments Bedside Chloride (test code = 101 mmol/L 37280-8) [facility] whole blood total carbon dioxide measurement (moles/volume)2020-04-01 00:15:00 Test Item Value Reference Range Interpretation Comments Bedside Total CO2 (test code = 23.0 mmol/L 2026-1) [facility] whole blood urea nitrogen (BUN) measurement (mass/volume)2020-04-01 00:15:00 Test Item Value Reference Range Interpretation Comments Bedside Blood Urea Nitrogen (test 12 mg/dL code = 39940-7) [facility] creatinine measurement (mass/volume) 2020-04-01 00:15:00 Test Item Value Reference Range Interpretation Comments Bedside Creatinine (test code = 2.1 mg/dL 76113-0) [facility] whole blood glucose measurement (mass/volume)2020-04-01 00:15:00 Test Item Value Reference Range Interpretation Comments Bedside Glucose (test code = 99 mg/dL 38586-3) [facility] (moles/volume)2020-04-01 00:15:00 Test Item Value Reference Range Interpretation Comments Bedside Whole Blood Ionized 0.99 mmol/L Calcium (test code = 1994-3) [facility] anion [id number] 00:15:00 Test Item Value Reference Range Interpretation Comments Bedside Anion Gap (test code = 03162-3) 17 [facility] [id number] 00:15:00 Test Item Value Reference Range Interpretation Comments Estimat Glomerular Filtration Rate 37 (test code = 56484-9) [facility] blood hemoglobin measurement (mass/volume)2020-04-01 00:15:00 Test Item Value Reference Range Interpretation Comments Bedside Hemoglobin (test code = 13.9 g/dL 22903-8) [facility] blood hematocrit (volume fraction) 2020-04-01 00:15:00 Test Item Value Reference Range Interpretation Comments Bedside Hematocrit (test code = 41.0 % 82487-2) [facility] blood lactic acid measurement (moles/volume)2020-04-01 00:10:00 Test Item Value Reference Range Interpretation Comments Bedside Lactic Acid Venous (test 1.74 mmol/L code = 2519-7) [facility] or plasma sodium measurement (moles/volume)2020-03-31 11:50:00 Test Item Value Reference Range Interpretation Comments Sodium Level (test code = 2951-2) 135 mmol/L [facility] potassium measurement (moles/volume)2020-03-31 11:50:00 Test Item Value Reference Range Interpretation Comments Potassium Level (test code = 3.7 mmol/L 2823-3) [facility] chloride measurement (moles/volume)2020-03-31 11:50:00 Test Item Value Reference Range Interpretation Comments Chloride Level (test code = 102 mmol/L 5-0) [facility] total carbon dioxide measurement (moles/volume)2020-03-31 11:50:00 Test Item Value Reference Range Interpretation Comments Carbon Dioxide Level (test code = 19 mmol/L 2027-9) [facility] or plasma anion gap determination (moles/volume)2020-03-31 11:50:00 Test Item Value Reference Range Interpretation Comments Anion Gap (test code = 05634-7) 18 [facility] urea nitrogen measurement (mass/volume)2020-03-31 11:50:00 Test Item Value Reference Range Interpretation Comments Blood Urea Nitrogen (test code = 11 mg/dL 3094-0) [facility] or plasma creatinine measurement (mass/volume)2020-03-31 11:50:00 Test Item Value Reference Range Interpretation Comments Creatinine (test code = 2160-0) 1.8 mg/dL [facility] [id number] 11:50:00 Test Item Value Reference Range Interpretation Comments Estimat Glomerular Filtration Rate 44 (test code = 61355-3) [facility] urea nitrogen/creatinine mass [id number] 11:50:00 Test Item Value Reference Range Interpretation Comments BUN/Creatinine Ratio (test code = 6 3097-3) [facility] or plasma glucose measurement (mass/volume)2020-03-31 11:50:00 Test Item Value Reference Range Interpretation Comments Glucose Level (test code = 2345-7) 98 mg/dL [facility]mond[facility]sm[facility] of Serum or Plasma by calculation 2020-03-31 11:50:00 Test Item Value Reference Range Interpretation Comments Calculated Osmolality (test code 269 mosm/kg = 01921-5) [facility] or plasma calcium measurement (mass/volume)2020-03-31 11:50:00 Test Item Value Reference Range Interpretation Comments Calcium Level (test code = 09680-5) 7.8 mg/dL [facility] or plasma total bilirubin measurement (mass/volume)2020-03-31 11:50:00 Test Item Value Reference Range Interpretation Comments Total Bilirubin (test code = 0.8 mg/dL 1974-2) [facility] total combined glucuronidated bilirubin and albumin bound bilirubin measurement (mass/volume)2020-03-31 11:50:00 Test Item Value Reference Range Interpretation Comments Direct Bilirubin (test code = 0.4 mg/dL 1968-02) [facility] plasma aspartate aminotransferase measurement (enzymatic activity/volume)2020-03-31 11:50:00 Test Item Value Reference Range Interpretation Comments Aspartate Amino Transf (AST/SGOT) 67 U/L (test code = 1920-8) [facility] alanine aminotransferase measurement (enzymatic activity/volume)2020-03-31 11:50:00 Test Item Value Reference Range Interpretation Comments Alanine Aminotransferase (ALT/SGPT) 42 U/L (test code = 1742-6) [facility] or plasma protein measurement (mass/volume)2020-03-31 11:50:00 Test Item Value Reference Range Interpretation Comments Total Protein (test code = 2885-2) 7.5 g/dL [facility] or plasma albumin measurement (mass/volume)2020-03-31 11:50:00 Test Item Value Reference Range Interpretation Comments Albumin (test code = 1751-7) 4.0 g/dL [facility] globulin measurement by calculation (mass/volume)2020-03-31 11:50:00 Test Item Value Reference Range Interpretation Comments Globulin (test code = 57043-4) 3.5 g/dL [facility] or plasma albumin/globulin mass ratio 2020-03-31 11:50:00 Test Item Value Reference Range Interpretation Comments Albumin/Globulin Ratio (test code = 1.1 1759-0) [facility] or plasma alkaline phosphatase measurement (enzymatic activity/volume)2020-03-31 11:50:00 Test Item Value Reference Range Interpretation Comments Alkaline Phosphatase (test code = 71 U/L 6768-6) [facility] or plasma lipase measurement (enzymatic activity/volume)2020-03-31 11:50:00 Test Item Value Reference Range Interpretation Comments Lipase (test code = 3040-3) 299 U/L [facility] leukocyte count (number/volume)2020-03-31 11:50:00 Test Item Value Reference Range Interpretation Comments White Blood Count (test code = 11.4 10*3/uL 6690-2) [facility] erythrocytes automated count (number/volume)2020-03-31 11:50:00 Test Item Value Reference Range Interpretation Comments Red Blood Count (test code = 4.25 10*6/uL 789-8) [facility] hemoglobin measurement (mass/volume) 2020-03-31 11:50:00 Test Item Value Reference Range Interpretation Comments Hemoglobin (test code = 718-7) 14.5 g/dL [facility] blood hematocrit (volume fraction) 2020-03-31 11:50:00 Test Item Value Reference Range Interpretation Comments Hematocrit (test code = 4544-3) 41.8 % [facility] erythrocyte mean corpuscular volume (MCV) [id number] 11:50:00 Test Item Value Reference Range Interpretation Comments Mean Corpuscular Volume (test code = 98.4 fL 787-2) [facility] erythrocyte mean corpuscular hemoglobin (mass per erythrocyte)2020-03-31 11:50:00 Test Item Value Reference Range Interpretation Comments Mean Corpuscular Hemoglobin (test 34.1 pg code = 785-6) [facility] erythrocyte mean corpuscular hemoglobin concentration measurement (mass/[id number] 11:50:00 Test Item Value Reference Range Interpretation Comments Mean Corpuscular Hemoglobin Concent 34.7 g/dL (test code = 786-4) [facility] width [id number] 11:50:00 Test Item Value Reference Range Interpretation Comments Red Cell Distribution Width (test code 12.8 % = 788-0) [facility] platelet count (count/volume) 2020-03-31 11:50:00 Test Item Value Reference Range Interpretation Comments Platelet Count (test code = 105 10*3/uL 777-3) [facility] platelet mean volume [id number] 11:50:00 Test Item Value Reference Range Interpretation Comments Mean Platelet Volume (test code = 10.1 fL 42930-5) [facility] comment 11:50:00 Test Item Value Reference Range Interpretation Comments Manual Differential (test code = ----- 8265-1) [facility] blood segmented neutrophils/100 [id number] 11:50:00 Test Item Value Reference Range Interpretation Comments Neutrophils % (Manual) (test code = 61 % 769-0) [facility] leukocytes 2020-03-31 11:50:00 Test Item Value Reference Range Interpretation Comments Lymphocytes % (Manual) (test code = 23 % 737-7) [facility] blood monocytes/100 leukocytes 2020-03-31 11:50:00 Test Item Value Reference Range Interpretation Comments Monocytes % (Manual) (test code = 14 % 744-3) [facility] blood eosinophil count as percentage of total [id number] 11:50:00 Test Item Value Reference Range Interpretation Comments Eosinophils % (Manual) (test code = 2 % 714-6) [facility] platelet detection by light microscopy 2020-03-31 11:50:00 Test Item Value Reference Range Interpretation Comments Platelet Estimate (test code = Decreased 9317-9) [facility] erythrocyte morphology finding [id number] 11:50:00 Test Item Value Reference Range Interpretation Comments Red Blood Cell Morphology (test code = Normal 6742-1) [facility] comment 02:48:00 Test Item Value Reference Range Interpretation Comments Urine Culture Indicated (test code = Not Ind 8264-4) [facility]mond[facility] specimen collection method 2020-03-31 02:48:00 Test Item Value Reference Range Interpretation Comments Urine Source (test code = 57975-4) URINE [facility] color [id number] 02:48:00 Test Item Value Reference Range Interpretation Comments Urine Color (test code = 5778-6) Yellow [facility] clarity [id number] 02:48:00 Test Item Value Reference Range Interpretation Comments Urine Appearance (test code = 20130-5) Clear [facility] pH measurement by automated test strip 2020-03-31 02:48:00 Test Item Value Reference Range Interpretation Comments Urine pH (test code = 50282-8) 5.0 [facility] Urine by Automated test [id number] 02:48:00 Test Item Value Reference Range Interpretation Comments Urine Specific [place] (test code = 1.020 12094-4) [facility] protein measurement by automated test strip (mass/volume)2020-03-31 02:48:00 Test Item Value Reference Range Interpretation Comments Urine Protein (test code = 70777-6) 100 mg/dL [facility] glucose measurement by automated test strip (mass/volume)2020-03-31 02:48:00 Test Item Value Reference Range Interpretation Comments Urine Glucose (UA) (test code Negative mg/dL = 55553-4) [facility] ketones measurement by automated test strip (mass/volume)2020-03-31 02:48:00 Test Item Value Reference Range Interpretation Comments Urine Ketones (test code = 40307-0) 15 mg/dL [facility] erythrocytes count by automated test strip (number/volume)2020-03-31 02:48:00 Test Item Value Reference Range Interpretation Comments Urine Occult Blood (test Negative {Butch}/uL code = 56396-4) [facility] nitrite detection by automated test [id number] 02:48:00 Test Item Value Reference Range Interpretation Comments Urine Nitrite (test code = 82422-7) Negative [facility] total bilirubin measurement by automated test strip (mass/volume)2020-03-31 02:48:00 Test Item Value Reference Range Interpretation Comments Urine Bilirubin (test code = 87926-2) 1 mg/dL [facility]irmat[facility] bilirubin measurement 2020-03-31 02:48:00 Test Item Value Reference Range Interpretation Comments Urine Ictotest (test code = 22532-0) Positive [facility] urobilinogen measurement by automated test strip (mass/volume)2020-03-31 02:48:00 Test Item Value Reference Range Interpretation Comments Urine Urobilinogen (test code = 4.0 mg/dL 54808-4) [facility] leukocytes count by automated test strip (number/volume)2020-03-31 02:48:00 Test Item Value Reference Range Interpretation Comments Urine Leukocyte Esterase (test 25 {Zohaib}/uL code = 39580-9) [facility]mond[facility]sc[facility] examination of [id number] 02:48:00 Test Item Value Reference Range Interpretation Comments Microscopic Urinalysis (T) (test code = ----- 16850-6) [facility] sediment erythrocyte count by microscopy (number/high power field)2020-03-31 02:48:00 Test Item Value Reference Range Interpretation Comments Urine RBC (test code = None Seen /[HPF] 57663-8) [facility] sediment leukocyte count by microscopy (number/high power field)2020-03-31 02:48:00 Test Item Value Reference Range Interpretation Comments Urine WBC (test code = 5821-4) 0-5 /[HPF] [facility] sediment epithelial cell count by microscopy (number/high power field)2020-03-31 02:48:00 Test Item Value Reference Range Interpretation Comments Urine Epithelial Cells (test code Few /[HPF] = 5787-7) [facility] sediment crystal count by microscopy (number/high power field)2020-03-31 02:48:00 Test Item Value Reference Range Interpretation Comments Urine Crystals (test code = None Seen /[HPF] 89853-0) [facility] sediment detection in urine sediment by light [id number] 02:48:00 Test Item Value Reference Range Interpretation Comments Urine Amorphous Sediment Moderate /[HPF] (test code = 8246-1) [facility] sediment bacteria count by microscopy (number/high power field)2020-03-31 02:48:00 Test Item Value Reference Range Interpretation Comments Urine Bacteria (test code = None Seen /[HPF] 5769-5) [facility] sediment casts count by microscopy (number/low power field)2020-03-31 02:48:00 Test Item Value Reference Range Interpretation Comments Urine Casts (test code = Present /[LPF] 9842-6) [facility] sediment hyaline cast count by microscopy (number/low power field)2020-03-31 02:48:00 Test Item Value Reference Range Interpretation Comments Urine Hyaline Casts (test code = 2-5 /[LPF] 5796-8) [facility] cast count in urine sediment by microscopy (number/low power field )2020-03-31 02:48:00 Test Item Value Reference Range Interpretation Comments Urine Fine Granular Casts (test 6-10 /[LPF] code = 41178-7) [facility]mond[facility]east detection in urine sediment by light [id number] 02:48:00 Test Item Value Reference Range Interpretation Comments Urine Yeast (test code = None Seen /[HPF] 77964-5) [facility] comment 02:48:00 Test Item Value Reference Range Interpretation Comments Urinalysis Comment (test code = 8262-8) * [facility]
--- NOTE | 2021-03-30 02:06 | ER ---
Nurse's Notes [facility] Name: Sung Brown Jr Age: 45 yrs Sex: Male : 1975 Arrival Date: 03/29/2021 Time: 23:37 Bed External Waiting Private MD: Diagnosis: Presentation: 03/29 23:50 Chief complaint: Patient states: Chest pain yesterday, went away. Started again 2 hrs ca1 [employer]. Also c/o back pain, L arm pain, R ankle pain, R abdominal area pain. Coronavirus screen: Client denies travel out of the [place] in the last 14 days. At this time, the client does not indicate any symptoms associated with coronavirus-19. Ebola Screen: Patient negative for fever greater than or equal to 101.5 degrees Fahrenheit, and additional compatible Ebola Virus Disease symptoms Patient denies exposure to infectious person. Patient denies travel to an Ebola-affected area in the 21 days before illness onset. No symptoms or risks identified at this time. Initial Sepsis Screen: Does the patient meet any 2 criteria? No. Patient's initial sepsis screen is negative. Does the patient have a suspected source of infection? No. Patient's initial sepsis screen is negative. Risk Assessment: Do you want to hurt yourself or someone else? Patient reports no desire to harm self or others. Onset of symptoms was March 29, 2021. 23:50 Method Of Arrival: Ambulatory ca1 23:50 Acuity: CINTIA 3 ca1 Historical: - Allergies: 23:53 NKDA; ca1 - PMHx: 23:53 ADD/ADHD; Hepatitis; COPD; Hypertension; WPW; ca1 - Immunization history:: Client reports receiving the 1st dose of the Covid vaccine. - Social history:: Smoking status: Patient reports the use of cigarette tobacco products, smokes one-half pack cigarettes per day. Vital Signs: 23:50 BP 136 / 86; Pulse 90; Resp 18 S; Temp 98.7(TE); Pulse Ox 100% on R/A; Weight 113.4 kg ca1 (R); Height 5 ft. 10 in. (177.80 cm) (R); Pain 10/10; 23:50 Body Mass Index 35.87 (113.40 kg, 177.80 cm) ca1 ED Course: 23:37 Patient arrived in ED. es 23:52 Triage completed. ca1 23:53 Arm band placed on right wrist. ca1 Administered Medications: No medications were administered Outcome: 03/30 02:05 Patient left the ED. em Signatures: Sanjuanita Bhakta Edgar, RN RN em Fanny Santillan RN RN ca1 Corrections: (The following items were deleted from the chart) 03/29 23:53 23:50 Immunization history: Client reports having NOT received the Covid vaccine. ca1 ca1
[2021-03-30 02:30] VITALS: BP 136/86; TEMP 98.7; O2SAT 100
--- NOTE | 2021-03-30 07:40 | EKG ---
Test Date: 2021-03-29 Test Time: 23:48:25 Criminology Professor: MAMTA MEASUREMENT RESULTS: Intervals: Rate: 85 WY: 138 QRSD: 92 QT: 384 QTc: 456 [place]: P: 62 WY: 138 QRS: 71 T: 14 INTERPRETIVE STATEMENTS: Normal sinus rhythm Normal ECG Compared to ECG 01/29/2021 06:14:59 No significant changes Electronically Signed On 03-30-21 07:39:40 CDT by Candido [place]
== END 2021-03-30 02:05 | disposition left against medical advice (07) ==
LOC: ER 23:34
DX: Z53.21 Procedure and treatment not carried out due to patient leaving prior to being seen by health care provider (principal)
CPT/HCPCS: 93005; 99281

== ENCOUNTER 2021-04-05 23:53 | Emergency (ER) | payer OTHER ==
--- OUTSIDE RECORDS SUMMARY | 2021-04-05 23:56 | XMS REPORT | Continuity of Care Document ---
:1975 Author Organization [facility] t Address [address] [place] [address] Care Team Providers Name Role Phone FOUND, NOT Primary Care Physician Unavailable Advance Directives Directive Decision Effective Date Termination Date Comments Sour ce Yes N/A [facility] Problems Condition Condition Condition Status Onset Resolution Last Treating Co mments Source Name Details Category Date Date Treatment Clinician Date Problem Condition [facility] [place] [facility] GERD GERD Diagnosis Active [facility] (gastroeso (gastroeso Krista kes - phageal phageal [facility]oria reflux reflux l disease) disease) Outpat i ent Clinics Alcoholic Alcoholic Diagnosis Active [facility] fatty fatty [facility] COPD COPD Diagnosis Active [facility] (chronic (chronic [facility] - obstructiv obstructiv Me moria e e l pulmonary pulmonary Outp ati disease) disease) ent Clinics Nicotine Nicotine Diagnosis Active [facility] dependence dependence Krista kes - [facility] Hypertensi Hypertensi Diagnosis Active [facility]ics Chronic Chronic Diagnosis Active [facility] pain pain [facility] - syndrome syndrome [facility] ent Clinics Depression Depression Problem Active [facility] with with [facility] - anxiety anxiety [facility] Anxiety Anxiety Problem Active [facility] Alcoholism Alcoholism Problem Active [facility] Allergies, Adverse Reactions, Alerts Allergy Allergy Status Severity Reaction(s) Onset Inactive Treating Comm ents Source Name Type Date Date Clinician Lisinopr Adverse Active severe [facility] Reaction fatigue [facility] Social History Social Habit Start Date Stop Date Quantity Comments Source Sex Assigned At [birth year] Male LON Ni 00:00:00 00:00:00 [facility] Smoking Status Start Date Stop Date Source Unknown if ever smoked [facility] Medications Ordered Filled Start Stop Current Ordering Indication Dosage Frequency Signature Comments Components Source Medication Medication Date Date Medication? Clinician (SIG) Name Name Omeprazole Omeprazole Yes Jennifer [address] [facility] 1-29 [place] 30 minutes [facility] - 00:00: before [facility] 00 morning l meal [facility] HydrOXYzine HydrOXYzine Yes Jennifer [address] [facility] HCl HCl 8-20 [place] as needed [facility] - 00:[facility]: [facility] 00 [facility] Escitalopra Escitalopra Yes Jennifer [address] [facility] m Oxalate m Oxalate 7-15 [place] Luke s - 00:00: Memoria 00 [facility] ent Clinics Albuterol No 2 [facility] (Proair Hfa S - Inh) 8 Gm [place] [facility] Carvedilol No 25mg [facility] (Coreg) 25 S - Mg TAB [place] [facility] Chlordiazep No 25mg [facility] oxide S - (Librium) [place] 25 Mg CAP [facility] Fluoxetine No 20mg [facility] Hcl S - (Prozac) 20 [place] Mg CAP [facility] Folic Acid No 1mg [facility] (Folvite) 1 S - Mg TAB [place] [facility] Losartan No 50mg [facility] Potassium S - (Cozaar) 50 [place] Mg TAB [facility] Omeprazole No 40mg [facility] (Prilosec) S - 40 Mg CPDR [place] [facility] Thiamine No 100mg [facility] Hcl S - (Vitamin [place] B-1) 100 Mg [facility]oria TAB l Hospita l Albuterol Albuterol Yes Jennifer 3 ml [address] [facility] Sulfate Sulfate [place] needed [facility] Clinics Esomeprazol Esomeprazol Yes Jennifer TAKE [address] [facility] e Magnesium e Magnesium [place] CAPSULE BY [facility] - MOUTH [facility] EVERY DAY l [facility] Symbicort Symbicort Yes Jennifer inhale [address] [facility] [place] puffs by [facility] - mouth [facility] twice l daily [facility] Viberzi Viberzi Yes Jennifer [address] [facility] [place] with food [facility] Proctofoam Proctofoam Yes Jennifer [address] [facility] HC [place] applicatio [facility] - n as [facility] needed l [facility] Gabapentin Gabapentin Yes Jennifer TAKE ONE [facility] [place] CAPSULE BY [facility] - MOUTH 3 [facility]oria TIMES A l DAY [facility] Losartan Losartan Yes Jennifer TAKE [address] [facility] Potassium Potassium [place] TABLET BY [facility] - MOUTH [facility] EVERY DAY l [facility] Ventolin Ventolin Yes Jennifer [address] [address] HFA HFA [place] inhaled [facility] - every 4-6 [facility] hours as l needed [facility] Chlordiazep Chlordiazep Yes Jennifer (Schedule [facility] oxide HCl oxide HCl [place] IV Drug) [facility] - TK 1 C PO [facility] TID l [facility] Nicotine Nicotine Yes Jennifer [address] [facility] [place] skin [facility] Carvedilol Carvedilol Yes Jennifer 1 tab(s) [address] [facility] [place] times a [facility] - day orally [facility] Vital Signs Vital Name Observation Time Observation Value Comments Source Heart Rate 2020-04-01 05:01:00 75 /min [facility] Respiratory rate 2020-04-01 05:01:00 16 /min [facility] BP Systolic 2020-04-01 05:01:00 102 mm[facility]Hg[facility] Di[facility] 2020-04-01 05:01:00 59 mm[Hg] [facility] Heart Rate 2020-04-01 04:21:00 75 /min [facility] Respiratory rate 2020-04-01 04:21:00 16 /min [facility] BP Systolic 2020-04-01 04:21:00 102 mm[Hg] [facility] Diastolic 2020-04-01 04:21:00 59 mm[Hg] LON [facility] Procedures Procedure Date / Time Performed Performing Clinician Sour e Computed tomography of 2020-03-31 00:00:00 KALYN Ni abdomen and pelvis [facility] without contrast Plan of Care Planned Activity Planned Date Details Comments Source Goal Patient referral [code = JENNY Ni [id number] ] [facility] Instructions Gallstones (DC) [facility] Encounters Start End Encounter Admission Attending Care Care Encounter Source Date/Time Date/Time Type Type Clinicians Facility Department ID 2020-03-31 2020-04-01 Departed GAYLA Ni [id number] [facility] 23:29:00 04:32:[address] 2020-03-05 2020-03-05 [facility] [id number] [facility] [address] 08:20:00 08:20:00 [facility] Medicine Outpati ent Clinics 2019-09-24 2019-09-24 [facility] [id number] [address] 19:14:00 19:14:00 [facility] Medicine Outpati ent Clinics 2019-04-15 2019-04-15 [facility] [id number] [address] 08:40:00 08:40:00 [facility] Medicine Outpati ent Clinics 2019-03-10 2019-03-10 [facility] [id number] 14:40:00 14:40:00 [facility] Medicine Outpati ent Clinics 2019-02-26 2019-02-26 [facility] [id number] [address] 09:40:00 09:40:00 [facility] Medicine Outpati ent Clinics 2019-02-24 2019-02-24 [facility] [id number] [address] 14:16:00 14:16:00 [facility] Medicine Outpati ent Clinics 2018-11-14 2018-11-14 [facility] [id number] 13:30:00 13:30:00 t [facility] Medicine Outpati ent Clinics Results Test Description Test Time Test Comments Results Result Comments Source Venous whole blood sodium measurement (moles/volume) 2020-03 00:15:00 Test Item Value Reference Range Interpretation Comme nts Bedside Sodium (test code = 48147-2) 136 mmol/L [facility] whole blood potassium measurement (moles/volume)2020-04-01 00:15:00 Test Item Value Reference Range Interpretation Comments Bedside Potassium (test code = 3.8 mmol/L 31383-0) [facility] whole blood chloride measurement (moles/volume)2020-04-01 00:15:00 Test Item Value Reference Range Interpretation Comments Bedside Chloride (test code = 101 mmol/L 70730-7) [facility] whole blood total carbon dioxide measurement (moles/volume)2020-04-01 00:15:00 Test Item Value Reference Range Interpretation Comments Bedside Total CO2 (test code = 23.0 mmol/L 2026-1) [facility] whole blood urea nitrogen (BUN) measurement (mass/volume)2020-04-01 00:15:00 Test Item Value Reference Range Interpretation Comments Bedside Blood Urea Nitrogen (test 12 mg/dL code = 87157-4) [facility] creatinine measurement (mass/volume) 2020-04-01 00:15:00 Test Item Value Reference Range Interpretation Comments Bedside Creatinine (test code = 2.1 mg/dL 58985-2) [facility] whole blood glucose measurement (mass/volume)2020-04-01 00:15:00 Test Item Value Reference Range Interpretation Comments Bedside Glucose (test code = 99 mg/dL 85557-1) [facility] (moles/volume)2020-04-01 00:15:00 Test Item Value Reference Range Interpretation Comments Bedside Whole Blood Ionized 0.99 mmol/L Calcium (test code = 1994-3) [facility] anion [id number] 00:15:00 Test Item Value Reference Range Interpretation Comments Bedside Anion Gap (test code = 90133-0) [facility] [id number] 00:15:00 Test Item Value Reference Range Interpretation Comments Estimat Glomerular Filtration Rate 37 (test code = 25056-4) [facility] blood hemoglobin measurement (mass/volume)2020-04-01 00:15:00 Test Item Value Reference Range Interpretation Comments Bedside Hemoglobin (test code = 13.9 g/dL 67744-9) [facility] blood hematocrit (volume fraction) 2020-04-01 00:15:00 Test Item Value Reference Range Interpretation Comments Bedside Hematocrit (test code = 41.0 % 60066-7) [facility] blood lactic acid measurement (moles/volume)2020-04-01 00:10:00 Test Item Value Reference Range Interpretation Comments Bedside Lactic Acid Venous (test 1.74 mmol/L code = 2519-7) [facility] or plasma sodium measurement (moles/volume)2020-03-31 11:50:00 Test Item Value Reference Range Interpretation Comments Sodium Level (test code = 2951-2) 135 mmol/L [facility] potassium measurement (moles/volume)2020-03-31 11:50:00 Test Item Value Reference Range Interpretation Comments Potassium Level (test code = 3.7 mmol/L 2823-3) [facility] chloride measurement (moles/volume)2020-03-31 11:50:00 Test Item Value Reference Range Interpretation Comments Chloride Level (test code = 102 mmol/L 5-0) [facility] total carbon dioxide measurement (moles/volume)2020-03-31 11:50:00 Test Item Value Reference Range Interpretation Comments Carbon Dioxide Level (test code = 19 mmol/L 2027-9) [facility] or plasma anion gap determination (moles/volume)2020-03-31 11:50:00 Test Item Value Reference Range Interpretation Comments Anion Gap (test code = 75423-5) 18 [facility] urea nitrogen measurement (mass/volume)2020-03-31 11:50:00 Test Item Value Reference Range Interpretation Comments Blood Urea Nitrogen (test code = 11 mg/dL 3094-0) [facility] or plasma creatinine measurement (mass/volume)2020-03-31 11:50:00 Test Item Value Reference Range Interpretation Comments Creatinine (test code = 2160-0) 1.8 mg/dL [facility] [id number] 11:50:00 Test Item Value Reference Range Interpretation Comments Estimat Glomerular Filtration Rate 44 (test code = 32773-5) [facility] plasma urea nitrogen/creatinine mass [id number] 11:50:00 Test Item Value Reference Range Interpretation Comments BUN/Creatinine Ratio (test code = 6 3097-3) [facility] or plasma glucose measurement (mass/volume)2020-03-31 11:50:00 Test Item Value Reference Range Interpretation Comments Glucose Level (test code = 2345-7) 98 mg/dL [facility] Center[facility]sm[facility] Serum or Plasma by calculation 2020-03-31 11:50:00 Test Item Value Reference Range Interpretation Comments Calculated Osmolality (test code 269 mosm/kg = 21832-6) [facility] or plasma calcium measurement (mass/volume)2020-03-31 11:50:00 Test Item Value Reference Range Interpretation Comments Calcium Level (test code = 03854-7) 7.8 mg/dL [facility] or plasma total bilirubin measurement (mass/volume)2020-03-31 11:50:00 Test Item Value Reference Range Interpretation Comments Total Bilirubin (test code = 0.8 mg/dL 1974-2) [facility] plasma total combined glucuronidated bilirubin and albumin bound bilirubin measurement (mass/volume)2020-03-31 11:50:00 Test Item Value Reference Range Interpretation Comments Direct Bilirubin (test code = 0.4 mg/dL 1968-02) [facility] plasma aspartate aminotransferase measurement (enzymatic activity/volume)2020-03-31 11:50:00 Test Item Value Reference Range Interpretation Comments Aspartate Amino Transf (AST/SGOT) 67 U/L (test code = 1920-8) [facility] alanine aminotransferase measurement (enzymatic activity/volume)2020-03-31 11:50:00 Test Item Value Reference Range Interpretation Comments Alanine Aminotransferase (ALT/SGPT) 42 U/L (test code = 1742-6) [facility] or plasma protein measurement (mass/volume)2020-03-31 11:50:00 Test Item Value Reference Range Interpretation Comments Total Protein (test code = 2885-2) 7.5 g/dL [facility] or plasma albumin measurement (mass/volume)2020-03-31 11:50:00 Test Item Value Reference Range Interpretation Comments Albumin (test code = 1751-7) 4.0 g/dL [facility] globulin measurement by calculation (mass/volume)2020-03-31 11:50:00 Test Item Value Reference Range Interpretation Comments Globulin (test code = 04205-0) 3.5 g/dL [facility] or plasma albumin/globulin mass ratio 2020-03-31 11:50:00 Test Item Value Reference Range Interpretation Comments Albumin/Globulin Ratio (test code = 1.1 1759-0) [facility] or plasma alkaline phosphatase measurement (enzymatic activity/volume)2020-03-31 11:50:00 Test Item Value Reference Range Interpretation Comments Alkaline Phosphatase (test code = 71 U/L 6768-6) [facility] or plasma lipase measurement (enzymatic activity/volume)2020-03-31 11:50:00 Test Item Value Reference Range Interpretation Comments Lipase (test code = 3040-3) 299 U/L [facility] leukocyte count (number/volume)2020-03-31 11:50:00 Test Item Value Reference Range Interpretation Comments White Blood Count (test code = 11.4 10*3/uL 6690-2) [facility] erythrocytes automated count (number/volume)2020-03-31 11:50:00 Test Item Value Reference Range Interpretation Comments Red Blood Count (test code = 4.25 10*6/uL 789-8) [facility] hemoglobin measurement (mass/volume) 2020-03-31 11:50:00 Test Item Value Reference Range Interpretation Comments Hemoglobin (test code = 718-7) 14.5 g/dL [facility] hematocrit (volume fraction) 2020-03-31 11:50:00 Test Item Value Reference Range Interpretation Comments Hematocrit (test code = 4544-3) 41.8 % [facility] erythrocyte mean corpuscular volume (MCV) [id number] 11:50:00 Test Item Value Reference Range Interpretation Comments Mean Corpuscular Volume (test code = 98.4 fL 787-2) [facility] mean corpuscular hemoglobin (mass per erythrocyte)2020-03-31 11:50:00 Test Item Value Reference Range Interpretation Comments Mean Corpuscular Hemoglobin (test 34.1 pg code = 785-6) [facility] mean corpuscular hemoglobin concentration measurement (mass/[id number] 11:50:00 Test Item Value Reference Range Interpretation Comments Mean Corpuscular Hemoglobin Concent 34.7 g/dL (test code = 786-4) [facility] width [id number] 11:50:00 Test Item Value Reference Range Interpretation Comments Red Cell Distribution Width (test code 12.8 % = 788-0) [facility] platelet count (count/volume) 2020-03-31 11:50:00 Test Item Value Reference Range Interpretation Comments Platelet Count (test code = 105 10*3/uL 777-3) [facility] platelet mean volume [id number] 11:50:00 Test Item Value Reference Range Interpretation Comments Mean Platelet Volume (test code = 10.1 fL 98105-1) [facility] comment 11:50:00 Test Item Value Reference Range Interpretation Comments Manual Differential (test code = ----- 8265-1) [facility] blood segmented neutrophils/100 [id number] 11:50:00 Test Item Value Reference Range Interpretation Comments Neutrophils % (Manual) (test code = 61 % 769-0) [facility] leukocytes 2020-03-31 11:50:00 Test Item Value Reference Range Interpretation Comments Lymphocytes % (Manual) (test code = 23 % 737-7) [facility] blood monocytes/100 leukocytes 2020-03-31 11:50:00 Test Item Value Reference Range Interpretation Comments Monocytes % (Manual) (test code = 14 % 744-3) [facility] blood eosinophil count as percentage of total [id number] 11:50:00 Test Item Value Reference Range Interpretation Comments Eosinophils % (Manual) (test code = 2 % 714-6) [facility] platelet detection by light microscopy 2020-03-31 11:50:00 Test Item Value Reference Range Interpretation Comments Platelet Estimate (test code = Decreased 9317-9) [facility] erythrocyte morphology finding [id number] 11:50:00 Test Item Value Reference Range Interpretation Comments Red Blood Cell Morphology (test code = Normal 6742-1) [facility] comment 02:48:00 Test Item Value Reference Range Interpretation Comments Urine Culture Indicated (test code = Not Ind 8264-4) [facility] Center[facility] specimen collection method 2020-03-31 02:48:00 Test Item Value Reference Range Interpretation Comments Urine Source (test code = 87503-8) URINE [facility] color [id number] 02:48:00 Test Item Value Reference Range Interpretation Comments Urine Color (test code = 5778-6) Yellow [facility] Center[facility] clarity [id number] 02:48:00 Test Item Value Reference Range Interpretation Comments Urine Appearance (test code = 57699-9) Clear [facility] pH measurement by automated test strip 2020-03-31 02:48:00 Test Item Value Reference Range Interpretation Comments Urine pH (test code = 01115-7) 5.0 [facility]ton[facility] gravity of Urine by Automated test [id number] 02:48:00 Test Item Value Reference Range Interpretation Comments Urine Specific [place] (test code = 1.020 25048-6) [facility] protein measurement by automated test strip (mass/volume)2020-03-31 02:48:00 Test Item Value Reference Range Interpretation Comments Urine Protein (test code = 12432-2) 100 mg/dL [facility] glucose measurement by automated test strip (mass/volume)2020-03-31 02:48:00 Test Item Value Reference Range Interpretation Comments Urine Glucose (UA) (test code Negative mg/dL = 71649-3) [facility] ketones measurement by automated test strip (mass/volume)2020-03-31 02:48:00 Test Item Value Reference Range Interpretation Comments Urine Ketones (test code = 81315-9) 15 mg/dL [facility] erythrocytes count by automated test strip (number/volume)2020-03-31 02:48:00 Test Item Value Reference Range Interpretation Comments Urine Occult Blood (test Negative {Butch}/uL code = 92610-8) [facility] nitrite detection by automated test [id number] 02:48:00 Test Item Value Reference Range Interpretation Comments Urine Nitrite (test code = 49204-2) Negative [facility] total bilirubin measurement by automated test strip (mass/volume)2020-03-31 02:48:00 Test Item Value Reference Range Interpretation Comments Urine Bilirubin (test code = 80413-4) 1 mg/dL [facility] CenterConfirmatory urine bilirubin measurement 2020-03-31 02:48:00 Test Item Value Reference Range Interpretation Comments Urine Ictotest (test code = 87223-6) Positive [facility] urobilinogen measurement by automated test strip (mass/volume)2020-03-31 02:48:00 Test Item Value Reference Range Interpretation Comments Urine Urobilinogen (test code = 4.0 mg/dL 07674-6) [facility] leukocytes count by automated test strip (number/volume)2020-03-31 02:48:00 Test Item Value Reference Range Interpretation Comments Urine Leukocyte Esterase (test 25 {Zohaib}/uL code = 52887-2) [facility] CenterMicroscopic examination of [id number] 02:48:00 Test Item Value Reference Range Interpretation Comments Microscopic Urinalysis (T) (test code = ----- 64596-2) [facility] sediment erythrocyte count by microscopy (number/high power field)2020-03-31 02:48:00 Test Item Value Reference Range Interpretation Comments Urine RBC (test code = None Seen /[HPF] 14604-6) [facility] sediment leukocyte count by [...] Crystals (test code = None Seen /[HPF] 02827-5) [facility] CenterAmorphous sediment detection in urine sediment by light [id number] 02:48:00 Test Item Value Reference Range Interpretation [...] Casts (test code = 2-5 /[LPF] 5796-8) [facility] count in urine sediment by microscopy (number/low power field )2020-03-31 02:48:00 Test Item Value Reference Range Interpretation Comments Urine Fine Granular Casts (test 6-10 /[LPF] code = 48856-8) [facility] CenterYeast detection in urine sediment by light [id number] 02:48:00 Test Item Value Reference Range Interpretation Comments Urine Yeast (test code = None Seen /[HPF] 75391-9) [facility] comment 02:48:00 Test Item Value Reference Range Interpretation Comments Urinalysis Comment (test code = 8262-8) * [facility]
[2021-04-06] MEDS ORDERED: MORPHINE 4 MG/ML SYR ONE (01:15)
[2021-04-06] MEDS ORDERED: DIAZEPAM 5 MG TABLET ONE (01:15)
[2021-04-06] MEDS ORDERED: NA CHLORIDE 0.9% 1,000 ML ONE (01:15)
[2021-04-06] MEDS ORDERED: ONDANSETRON 4 MG/2 ML VIAL ONE (01:15)
[2021-04-06 01:25] LABS: Urine Blood Negative (Negative); Urine Glucose Negative (Negative); Urine Protein Negative (Negative); Urine Specific Gravity 1.015 (1.005-1.030)
[2021-04-06 01:32] LABS: Absolute Lymphocytes (CBC) 1.2 K/uL (0.7-4.9); Basophils % 0.6 % (0-1.3); Hematocrit 42.9 % (39.6-49.0); Lymphocytes % 29.1 % (15.3-44.8); MPV 8.3 fL (7.6-11.3); RBC Red Blood Cell Count 4.37 M/uL (4.33-5.43)
[2021-04-06 01:45] LABS: ALT/SGPT 43 U/L (12-78); AST/SGOT 110 U/L (15-37); Albumin 3.6 g/dL (3.4-5.0); Alkaline Phosphatase 164 U/L (45-117); BUN Blood Urea Nitrogen 7 mg/dL (7-18); Bicarbonate 25 mmol/L (21-32); Bilirubin Total 1.2 mg/dL (0.2-1.0); Glucose Level 108 mg/dL (74-106); Potassium 3.9 mmol/L (3.5-5.1); Protein, Total 8.7 g/dL (6.4-8.2); Sodium Level 142 mmol/L (136-145); Troponin (Emerg Dept Use Only) < 0.02 ng/mL (0.0-0.045)
[2021-04-06 01:46] LABS: Barbiturates NEGATIVE (NEGATIVE); Benzodiazepines NEGATIVE (NEGATIVE); Cocaine NEGATIVE (NEGATIVE); METHAMPHETAM NEGATIVE (NEGATIVE); Methadone NEGATIVE (NEGATIVE); Opiates NEGATIVE (NEGATIVE); Phencyclidine NEGATIVE (NEGATIVE); THC Cannibis POSITIVE (NEGATIVE)
--- NOTE | 2021-04-06 01:50 | EDPHYS ---
Physician Documentation [facility] Name: Sung Brown Jr Age: 45 yrs Sex: Male : 1975 Arrival Date: 04/05/2021 Time: 23:56 Bed 26 Private MD: ED Physician Ganesh Wheeler HPI: 04/06 00:41 This 45 yrs old Male presents to ER via EMS with complaints of Fall Injury. supa 00:41 Details of fall: The patient fell from a height, down approximately 4 stairs. Onset: supa The symptoms/episode began/occurred just prior to arrival. Associated injuries: The patient sustained injury to the head, neck injury, injury to the low back. Severity of symptoms: At their worst the symptoms were mild, moderate, in the emergency department the symptoms are unchanged. The patient has not experienced similar symptoms in the past. Historical: - Allergies: 04/05 23:59 NKDA; bb - PMHx: 23:59 ADD/ADHD; COPD; Hepatitis; Hypertension; WPW; bb - PSHx: 23:59 multiple orthopedic surgeries; bb - Immunization history:: Adult Immunizations up to date, Client reports receiving the 1st dose of the Covid vaccine. - Social history:: Smoking status: Patient reports the use of cigarette tobacco products, smokes one-half pack cigarettes per day, Patient uses alcohol, patient/guardian reports chronic longstanding heavy alcohol consumption. - Immunization history: Last tetanus immunization: unknown. - Family history:: not pertinent. ROS: 04/06 00:41 Constitutional: Negative for fever, chills, and weight loss, Eyes: Negative for injury, supa pain, redness, and discharge, ENT: Negative for injury, pain, and discharge, Neck: Negative for injury, pain, and swelling, Cardiovascular: Negative for chest pain, palpitations, and edema, Respiratory: Negative for shortness of breath, cough, wheezing, and pleuritic chest pain, Abdomen/GI: Negative for abdominal pain, nausea, vomiting, diarrhea, and constipation, : Negative for injury, bleeding, discharge, and swelling, MS/Extremity: Negative for injury and deformity, Skin: Negative for injury, rash, and discoloration, Neuro: Negative for headache, weakness, numbness, tingling, and seizure, Psych: Negative for depression, anxiety, suicide ideation, homicidal ideation, and hallucinations, Allergy/Immunology: Negative for hives, rash, and allergies, Endocrine: Negative for neck swelling, polydipsia, polyuria, polyphagia, and marked weight changes, Hematologic/Lymphatic: Negative for swollen nodes, abnormal bleeding, and unusual bruising. Back: Positive for injury or acute deformity, decreased range of motion, pain at rest, of the lumbar area. Exam: 00:41 Constitutional: This is a well developed, well nourished patient who is awake, alert, supa and in no acute distress. Head/Face: Normocephalic, atraumatic. Eyes: Pupils equal round and reactive to light, extra-ocular motions intact. Lids and lashes normal. Conjunctiva and sclera are non-icteric and not injected. Cornea within normal limits. Periorbital areas with no swelling, redness, or edema. ENT: Nares patent. No nasal discharge, no septal abnormalities noted. Tympanic membranes are normal and external auditory canals are clear. Oropharynx with no redness, swelling, or masses, exudates, or evidence of obstruction, uvula midline. Mucous membranes moist. Neck: Trachea midline, no thyromegaly or masses palpated, and no cervical lymphadenopathy. Supple, full range of motion without nuchal rigidity, or vertebral point tenderness. No Meningismus. Chest/axilla: Normal chest wall appearance and motion. Nontender with no deformity. No lesions are appreciated. Cardiovascular: Regular rate and rhythm with a normal S1 and S2. No gallops, murmurs, or rubs. Normal PMI, no JVD. No pulse deficits. Respiratory: Lungs have equal breath sounds bilaterally, clear to auscultation and percussion. No rales, rhonchi or wheezes noted. No increased work of breathing, no retractions or nasal flaring. Abdomen/GI: Soft, non-tender, with normal bowel sounds. No distension or tympany. No guarding or rebound. No evidence of tenderness throughout. Male : Normal genitalia with no discharge or lesions. Skin: Warm, dry with normal turgor. Normal color with no rashes, no lesions, and no evidence of cellulitis. MS/ Extremity: Pulses equal, no cyanosis. Neurovascular intact. Full, normal range of motion. Neuro: Awake and alert, GCS 15, oriented to person, place, time, and situation. Cranial nerves II-XII grossly intact. Motor strength 5/5 in all extremities. Sensory grossly intact. Cerebellar exam normal. Normal gait. Psych: Awake, alert, with orientation to person, place and time. Behavior, mood, and affect are within normal limits. 00:41 Back: pain, that is mild, that is moderate, ROM is painful, decreased, with flexion, with extension, normal spinal alignment noted, CVA tenderness, is absent, muscle spasm, is not present. 02:11 ECG was reviewed by the Attending Physician. [facility] Vital Signs: 04/05 23:56 BP 155 / 88; Pulse 112; Resp 18 S; Temp 97.2(O); Pulse Ox 96% on R/A; Weight 113.4 kg bb (R); Height 5 ft. 10 in. (177.80 cm) (R); Pain 06/05; 04/06 01:44 BP 126 / 88; Pulse 90; Resp 16 S; Pulse Ox 94% on R/A; bb 02:18 BP 118 / 74; Pulse 90; Resp 16 S; Pulse Ox 96% on R/A; bb 04/05 23:56 Body Mass Index 35.87 (113.40 kg, 177.80 cm) bb [place] Coma Score: 04/05 23:56 Eye Response: spontaneous(4). Verbal Response: oriented(5). Motor Response: obeys bb commands(6). Total: 15. Trauma Score (Adult): 23:56 Eye Response: spontaneous(1); Verbal Response: oriented(1); Motor Response: obeys bb commands(2); Systolic BP: > 89 mm Hg(4); Respiratory Rate: 10 to 29 per min(4); [place] Score: 15; Trauma Score: 12 04/06 01:00 Eye Response: spontaneous(1); Verbal Response: oriented(1); Motor Response: obeys bb commands(2); Systolic BP: > 89 mm Hg(4); Respiratory Rate: 10 to 29 per min(4); [place] Score: 15; Trauma Score: 12 MDM: 00:14 Patient medically screened. [facility] 00:43 Differential diagnosis: closed head injury, contusion, fracture, multiple trauma, supa sprain, strain. Data reviewed: vital signs, nurses notes, lab test result(s), radiologic studies, CT scan, plain films. Data interpreted: cardiac monitor technician: rate is 112 beats/min, rhythm is regular, Pulse oximetry: on room air is 96 %. Test interpretation: by ED physician or midlevel provider: plain radiologic studies. Counseling: I had a detailed discussion with the patient and/or guardian regarding: the historical points, exam findings, and any diagnostic results supporting the discharge/admit diagnosis, lab results, radiology results, the need for outpatient follow up, for definitive care, a family practitioner, a orthopedic surgeon. 04/06 00:41 Order name: CBC with Diff [facility] 04/06 00:41 Order name: Type And Screen [facility] 04/06 00:41 Order name: Comprehensive Metabolic Panel; Complete Time: 01:46 [facility] 04/06 00:41 Order name: UA MICROSCOPIC [facility] 04/06 00:41 Order name: Alcohol Level; Complete Time: 01:43 [facility] 04/06 00:41 Order name: UDS; Complete Time: 01:53 [facility] 04/06 00:41 Order name: CT Traumagram (Head C Spine CAP wo con) [facility] 04/06 00:41 Order name: Ankle Right 3 View XRAY [facility] 04/06 01:24 Order name: Troponin (Emerg Dept Use Only); Complete Time: 01:46 [facility] 04/06 01:24 Order name: Urine Dipstick-Ancillary; Complete Time: 01:43 [facility] 04/06 01:38 Order name: Manual Differential [facility] 04/06 00:41 Order name: Labs collected and sent; Complete Time: 01:16 [facility] 04/06 00:41 Order name: Urine Dipstick-Ancillary (obtain specimen); Complete Time: 01:16 [facility] 04/06 00:45 Order name: EKG; Complete Time: 00:45 [facility] 04/06 00:45 Order name: EKG - Nurse/Tech; Complete Time: 01:41 [facility] EC:11 Rate is 89 beats/min. Rhythm is regular. QRS Trosper is Normal. MS interval is normal. QRS supa interval is normal. QT interval is normal. No Q waves. T waves are Normal. No ST changes noted. Clinical impression: NSR w/ Non-specific ST/T Changes and No evidence of ischemia. Interpreted by me. Reviewed by me. Administered Medications: 01:00 Drug: Valium (diazepam) 5 mg Route: PO; bb 01:39 Follow up: Response: No adverse reaction bb 01:10 Drug: NS 0.9% 500 ml Route: IV; Rate: bolus; Site: right forearm; bb 02:18 Follow up: IV Status: Completed infusion; IV Intake: 500ml bb 01:10 Drug: Zofran (Ondansetron) 4 mg Route: IVP; Site: right forearm; bb 01:39 Follow up: Response: No adverse reaction bb 01:12 Drug: morphine 4 mg Route: IVP; Site: right forearm; bb 01:39 Follow up: Response: No adverse reaction; Pain is unchanged, physician notified bb 01:39 Drug: Thiamine 100 mg Route: IV; Rate: bolus; Site: right forearm; bb 01:45 Follow up: IV Status: Completed infusion; IV Intake: 10ml bb 02:15 Drug: GI Cocktail without - (Maalox Suspension 30 ml, Lidocaine Liquid 2 % 15 bb ml) Route: PO; 02:47 Follow up: Response: No adverse reaction bb 02:16 Drug: ProTONIX (pantoprazole) 40 mg Route: IVP; Site: right forearm; bb 02:46 Follow up: Response: No adverse reaction bb 02:18 Not Given (Physician Discretion): NS 0.9% 1000 ml IV at 125 ml/hr continuous bb Disposition Summary: 04/06/21 01:49 Discharge Ordered Location: Home supa Problem: new supa Symptoms: have improved supa Condition: Stable supa Diagnosis - Alcohol abuse with intoxication supa - Fall (on) (from) other stairs and steps supa - Low back pain supa - Alcoholic cirrhosis of liver without ascites supa Followup: supa - With: Private Physician - When: 2 - 3 days - Reason: Recheck today's complaints, Continuance of care, Re-evaluation by your physician Followup: supa - With: Martha Guzman MD - When: 2 - 3 days - Reason: Recheck today's complaints, Re-evaluation by your physician Discharge Instructions: - Discharge Summary Sheet supa - Acute Back Pain, Adult supa - Chronic Back Pain supa - Cirrhosis supa - Musculoskeletal Pain supa - Back Injury Prevention, [id number] supa - Chronic Back Pain, Aiqg-by-Nhio supa - Alcoholic Liver Disease, [id number] supa - Alcoholic Liver Disease supa Forms: - Medication Reconciliation Form supa - Thank You Letter supa - Antibiotic Education supa - Prescription Opioid Use supa Prescriptions: - Protonix 40 mg Oral Tablet - take 1 tablet by ORAL route once daily; 30 tablet; Refills: 0, Product [facility] Selection Permitted - Cyclobenzaprine 5 mg Oral Tablet - take 1 tablet by ORAL route 3 times per day As needed; 15 tablet; Refills: 0, [facility] Product Selection Permitted Signatures: Dispatcher [employer] EDGaensh Bravo MD MD cha Ballard, Brenda RN RN bb Corrections: (The following items were deleted from the chart) 01:23 00:45 TROPONIN (EMERG DEPT USE ONLY)+C.[email or web address] ordered. [facility] EDWV
--- NOTE | 2021-04-06 01:50 | ER ---
Nurse's Notes [facility] Name: Sung Brown Jr Age: 45 yrs Sex: Male : 1975 Arrival Date: 04/05/2021 Time: 23:56 Bed 26 Private MD: Diagnosis: Alcohol abuse with intoxication;Fall (on) (from) other stairs and steps;Low back pain;Alcoholic cirrhosis of liver without ascites Presentation: 04/05 23:56 Chief complaint: EMS states: they were toned out for report of pt with fall injury and bb back pain. Care prior to arrival: None. Mechanism of Injury: Fall. Trauma event details: Injury occurred in the [facility], Injury occurred: at home. Injury occurred: April 05, 2021. 23:56 Acuity: CINTIA 2 bb 23:56 Method Of Arrival: EMS: [facility] 23:59 Coronavirus screen: At this time, the client does not indicate any symptoms associated bb with coronavirus-19. Ebola Screen: No symptoms or risks identified at this time. Initial Sepsis Screen: Does the patient meet any 2 criteria? No. Patient's initial sepsis screen is negative. Does the patient have a suspected source of infection? No. Patient's initial sepsis screen is negative. Risk Assessment: Do you want to hurt yourself or someone else? Patient reports no desire to harm self or others. Onset of symptoms was April 05, 2021. Historical: - Allergies: 23:59 NKDA; bb - PMHx: 23:59 ADD/ADHD; COPD; Hepatitis; Hypertension; WPW; bb - PSHx: 23:59 multiple orthopedic surgeries; bb - Immunization history:: Adult Immunizations up to date, Client reports receiving the 1st dose of the Covid vaccine. - Social history:: Smoking status: Patient reports the use of cigarette tobacco products, smokes one-half pack cigarettes per day, Patient uses alcohol, patient/guardian reports chronic longstanding heavy alcohol consumption. - Immunization history: Last tetanus immunization: unknown. - Family history:: not pertinent. Screenin:56 Abuse screen: Denies threats or abuse. Tuberculosis screening: No symptoms or risk bb factors identified. 04/06 00:01 Nutritional screening: No deficits noted. Fall Risk None identified. bb Primary Survey: 04/05 23:56 NO uncontrolled hemorrhage observed. A: The patient is alert. Airway: patent. bb Breathing/Chest: Respiratory pattern: regular, Respiratory effort: spontaneous. Circulation: Heart tones present. Disability Alert. Exposure/Environment:. Exposure/Environment: A warming method has been applied: A warm blanket has been provided to the patient. 04/06 00:00 Reassessment Airway Airway Patent Breathing/Chest Respiratory pattern Regular bb Respiratory effort Spontaneous Unlabored. Secondary Survey: 04/05 23:56 HEENT: No deficits noted. Gastrointestinal: No deficits noted. : No signs and/or bb symptoms were reported regarding the genitourinary system. Musculoskeletal: Reports pain in back. Assessment: 04/06 00:00 General: Appears in no apparent distress. uncomfortable, Behavior is cooperative, bb anxious. Pain: Complains of pain in back and ankles Pain currently is 10 out of 10 on a pain scale. Neuro: Level of Consciousness is awake, alert, obeys commands, Oriented to person, place, time, situation. Cardiovascular: Capillary refill < 3 seconds Patient's skin is warm and dry. Respiratory: Respiratory effort is even, unlabored, Respiratory pattern is regular. GI: Abdomen is non-distended, Abd is soft X 4 quads. Derm: Skin is pink, warm \T\ dry. Musculoskeletal: Capillary refill < 3 seconds, right ankle s/p multiple reconstruction surgeries. Injury Description: fall injury. 01:42 Reassessment: Patient and/or family updated on plan of care and expected duration. Pain bb level reassessed. Patient is alert, oriented x 3, equal unlabored respirations, skin warm/dry/pink. pt states pain medication did not help Dr Wheeler notified. 01:47 Reassessment: Dr Wheeler notified pt c/o right upper abdominal pain no new orders bb received. 02:19 Reassessment: Patient and/or family updated on plan of care and expected duration. Pain bb level reassessed. Patient is alert, oriented x 3, equal unlabored respirations, skin warm/dry/pink. pt states he does not want to be discharged Dr Wheeler notified. 02:44 Reassessment: Patient is alert, oriented x 3, equal unlabored respirations, skin bb warm/dry/pink. pt refused to sign discharge paperwork states he does not agree with discharge Dr Wheeler aware. Discharge instructions given pt assisted to exit via wheelchair. Vital Signs: 04/05 23:56 BP 155 / 88; Pulse 112; Resp 18 S; Temp 97.2(O); Pulse Ox 96% on R/A; Weight 113.4 kg bb (R); Height 5 ft. 10 in. (177.80 cm) (R); Pain 06/05; 04/06 01:44 BP 126 / 88; Pulse 90; Resp 16 S; Pulse Ox 94% on R/A; bb 02:18 BP 118 / 74; Pulse 90; Resp 16 S; Pulse Ox 96% on R/A; bb 04/05 23:56 Body Mass Index 35.87 (113.40 kg, 177.80 cm) bb Quita Coma Score: 04/05 23:56 Eye Response: spontaneous(4). Verbal Response: oriented(5). Motor Response: obeys bb commands(6). Total: 15. Trauma Score (Adult): 23:56 Eye Response: spontaneous(1); Verbal Response: oriented(1); Motor Response: obeys bb commands(2); Systolic BP: > 89 mm Hg(4); Respiratory Rate: 10 to 29 per min(4); [place] Score: 15; Trauma Score: 12 04/06 01:00 Eye Response: spontaneous(1); Verbal Response: oriented(1); Motor Response: obeys bb commands(2); Systolic BP: > 89 mm Hg(4); Respiratory Rate: 10 to 29 per min(4); [place] Score: 15; Trauma Score: 12 ED Course: 04/05 23:56 Patient arrived in ED. bb 23:56 Patient has correct armband on for positive identification. Bed in low position. Call bb light in reach. 23:56 Patient maintains SpO2 saturation greater than 95% on room air. bb 23:57 Triage completed. bb 23:59 Arm band placed on Patient placed in an exam room, on a stretcher, on pulse oximetry. bb 04/06 00:01 No provider procedures requiring assistance completed. bb 00:14 Ganesh Wheeler MD is Attending Physician. supa 01:13 Inserted saline lock: 20 gauge in right forearm, using aseptic technique. Blood ds4 collected. 01:23 Ankle Right 3 View XRAY In Process Unspecified. EDMS 01:44 Thermoregulation: warm blanket given to patient. bb 01:46 CT Traumagram (Head C Spine CAP wo con) In Process Unspecified. EDMS 01:49 Martha Guzman MD is Referral Physician. supa 02:46 IV discontinued, intact, bleeding controlled, No redness/swelling at site. Pressure bb dressing applied. Administered Medications: 01:00 Drug: Valium (diazepam) 5 mg Route: PO; bb 01:39 Follow up: Response: No adverse reaction bb 01:10 Drug: NS 0.9% 500 ml Route: IV; Rate: bolus; Site: right forearm; bb 02:18 Follow up: IV Status: Completed infusion; IV Intake: 500ml bb 01:10 Drug: Zofran (Ondansetron) 4 mg Route: IVP; Site: right forearm; bb 01:39 Follow up: Response: No adverse reaction bb 01:12 Drug: morphine 4 mg Route: IVP; Site: right forearm; bb 01:39 Follow up: Response: No adverse reaction; Pain is unchanged, physician notified bb 01:39 Drug: Thiamine 100 mg Route: IV; Rate: bolus; Site: right forearm; bb 01:45 Follow up: IV Status: Completed infusion; IV Intake: 10ml bb 02:15 Drug: GI Cocktail without - (Maalox Suspension 30 ml, Lidocaine Liquid 2 % 15 bb ml) Route: PO; 02:47 Follow up: Response: No adverse reaction bb 02:16 Drug: ProTONIX (pantoprazole) 40 mg Route: IVP; Site: right forearm; bb 02:46 Follow up: Response: No adverse reaction bb 02:18 Not Given (Physician Discretion): NS 0.9% 1000 ml IV at 125 ml/hr continuous bb Intake: 04/05 23:56 PO: 0ml; Total: 0ml. bb 04/06 01:45 IV: 10ml; Total: 10ml. bb 02:18 IV: 500ml; Total: 510ml. bb Outcome: 01:49 Discharge ordered by . supa 02:46 Discharged to home via wheelchair. bb 02:46 Condition: stable 02:46 Discharge instructions given to patient, Instructed on discharge instructions, follow up and referral plans. medication usage, Demonstrated understanding of instructions, follow-up care, medications, Prescriptions given X 2. 02:46 Patient left the ED. bb Signatures: Dispatcher [employer] EDCO Ganesh Wheeler MD MD cha Ballard, Brenda, RN RN bb Pito Finch ds4
[2021-04-06] MEDS ORDERED: THIAMINE 200 MG/2 ML INJ ONE (01:52)
[2021-04-06 01:53] LABS: Urine Bacteria <20 /HPF (NONE SEEN); Urine RBC <5 /HPF (NONE SEEN)
[2021-04-06 02:25] LABS: Blood Morphology Comment NOT SEEN (NOT SEEN)
[2021-04-06 02:26] LABS: Platelet Estimate DECR
[2021-04-06] MEDS ORDERED: MAGNES/ALUMIN/SIMET 30ML UCUP ONE (02:27)
[2021-04-06] MEDS ORDERED: PANTOPRAZOLE 40 MG INJ ONE (02:27)
[2021-04-06] MEDS ORDERED: LIDOCAINE VISCOUS 2% SOLN 15 ML UDC ONE (02:27)
[2021-04-06 02:56] VITALS: TEMP 97.2
[2021-04-06 03:01] VITALS: BP 118/74; O2SAT 96
--- NOTE | 2021-04-06 07:31 | EKG ---
Test Date: 2021-04-06 Test Time: 01:37:47 Trailer Technician: HERBER MEASUREMENT RESULTS: Intervals: Rate: 89 OK: QRSD: 88 QT: 392 QTc: 476 [place]: P: 87 OK: QRS: 57 T: 14 INTERPRETIVE STATEMENTS: normal ecg/artifact Electronically Signed On 04-06-21 07:30:43 CDT by Candido Beach
--- NOTE | 2021-04-06 07:36 | RAD REPORT ---
EXAM DESCRIPTION: RAD - Ankle Right 3 View - 04/06/2021 1:23 am CLINICAL HISTORY: PAIN COMPARISON: Ankle Right 3 View dated 02/19/2013 FINDINGS: Cannulated screws traverses the tibiotalar joint from fusion. The screws are in similar po sitioning and without hardware complication. Surgical clips are seen within the soft tissues. Degener ative changes are present at subtalar joints. IMPRESSION: No right ankle fracture identified.
--- NOTE | 2021-04-06 11:38 | RAD REPORT ---
EXAM DESCRIPTION: CT - Head C Spine Cap Wo Con - 04/06/2021 6:08 am CLINICAL HISTORY: The patient is 45 years old and is Male; PAIN TECHNIQUE: Axial computed tomography images of the head/brain and cervical spine without intravenous contrast. Sagittal and coronal reformatted images were created and reviewed. This CT exam was pe rformed using one or more of the following dose reduction techniques: automated exposure control, a djustment of the mA and/or kV according to patient size, and/or use of iterative reconstruction techn ique. COMPARISON: No relevant prior studies available. FINDINGS: Brain: Unremarkable. No hemorrhage. No significant white matter disease. No edema. Ventricles: Unremarkable. No ventriculomegaly. Skull: No acute fracture. Sinuses: Left maxillary sinus mucosal thickening. Mastoid air cells: Unremarkable as visualized. No mastoid effusion. Orbits: Postsurgical changes along the right inferior orbital wall. Vertebrae: No acute cervical spine fracture or subluxation. Straightening of the normal cervical lordosis. Discs/spinal canal/neural foramina: No acute findings. No spinal canal stenosis. Soft tissues: Unremarkable. * A single impression for all exams can be found at the end of this report EXAM DESCRIPTION: CT Chest, Abdomen and Pelvis Without Intravenous Contrast CLINICAL HISTORY: The patient is 45 years old and is Male; PAIN TECHNIQUE: Axial computed tomography images of the chest, abdomen and pelvis without intravenous con trast. Sagittal and coronal reformatted images were created and reviewed. This CT exam was perfor med using one or more of the following dose reduction techniques: automated exposure control, adjus tment of the mA and/or kV according to patient size, and/or use of iterative reconstruction technique . COMPARISON: CT abdomen and pelvis with contrast June 16, 2020. FINDINGS: CHEST: Lungs: Unremarkable. No mass. No consolidation. Pleural space: Unremarkable. No significant effusion. No pneumothorax. Heart: Unremarkable. No cardiomegaly. No significant pericardial effusion. ABDOMEN: Liver: Cirrhotic appearance to the liver. Similar-appearing 1.6 cm low-density lesion in the right inferior liver which may represent a cyst. Gallbladder and bile ducts: Gallbladder is surgically absent. No ductal dilation. Pancreas: Unremarkable. No ductal dilation. Spleen: Splenomegaly. Adrenals: Unremarkable. No mass. Kidneys and ureters: Unremarkable. No obstructing stones. No hydronephrosis. Stomach and bowel: Unremarkable. No obstruction. No mucosal thickening. PELVIS: Appendix: No findings to suggest acute appendicitis. Bladder: Unremarkable. No stones. Reproductive: Unremarkable as visualized. CHEST, ABDOMEN and PELVIS: Intraperitoneal space: Unremarkable. No significant fluid collection. No free air. Bones/joints: Unremarkable. No acute fracture. No dislocation. Soft tissues: Clips along the anterior abdominal wall. Clips in the left inguinal region. Vasculature: Unremarkable. No aortic aneurysm. Lymph nodes: Unremarkable. No enlarged lymph nodes. * A single impression for all exams can be found at the end of this report IMPRESSION: CT Head and Cervical Spine Without Intravenous Contrast: 1. No acute intracranial abnormality. 2. No acute cervical spine fracture or subluxation. CT Chest, Abdomen and Pelvis Without Intravenous Contrast: 1. No acute finding in the abdomen/pelvis. 2. Cirrhotic appearance to the liver. 3. Gallbladder is surgically absent. 4. Splenomegaly. Electronically signed by: Moiz Adam MD 04/06/2021 2:16 AM CDT Due to temporary technical issues with the PACS/Fluency reporting system, reports are being signed by the in house radiologist without review as a courtesy to ensure prompt reporting. The interpreting r adiologist is fully responsible for the content of the report.
== END 2021-04-06 02:46 | disposition home or self-care (01) ==
LOC: ER 23:53
DX: F10.129 Alcohol abuse with intoxication, unspecified (principal); K70.30 Alcoholic cirrhosis of liver without ascites; W10.9XXA Fall (on) (from) unspecified stairs and steps, initial encounter; I10 Essential (primary) hypertension; F17.210 Nicotine dependence, cigarettes, uncomplicated
CPT/HCPCS: 96361; 93005; 85025; 36415; 80320; 86900; 86850; 86901; 84484; 80053; 80307; 70450; 71250; 72125; 73610; 96375; 96374; 99284; J3411; C9113; J7030; J2405; 81003; 81015

== ENCOUNTER 2021-10-26 20:38 | Emergency (ER) | payer OTHER ==
--- OUTSIDE RECORDS SUMMARY | 2021-10-26 20:41 | XMS REPORT | Continuity of Care Document ---
:1975 Author Organization [facility] t Address [facility] [address] [place] [address] Care Team Providers Name Role Phone FOUND, NOT Primary Care Physician Unavailable [place] Attending Clinician Unavailable Advance Directives Directive Decision Effective Date Termination Date Comments Sour ce Yes N/A [facility] N/A [facility] per [facility] Problems Condition Condition Condition Status Onset Resolution Last Treating Co mments Source Name Details Category Date Date Treatment Clinician Date Problem Condition [facility] Allergies, Adverse Reactions, Alerts Allergy Allergy Status Severity Reaction(s) Onset Inactive Treating Comm ents Source Name Type Date Date Clinician Lisinopr Adverse Active severe [facility] Reaction fatigue [facility] Social History Social Habit Start Date Stop Date Quantity Comments Source Sex Assigned At [birth year] Male [employer] 00:00:00 00:00:00 Smoking Status Start Date Stop Date Source Unknown if ever smoked [facility] Medications Ordered Filled Start Stop Current Ordering Indication Dosage Frequency Signature Comments Components Source Medication Medication Date Date Medication? Clinician (SIG) Name Name Omeprazole Omeprazole Yes Jennifer [address] [facility] 1-29 [place] 30 minutes [facility] - 00:[facility]: before [facility] 00 morning l meal [facility] HydrOXYzine HydrOXYzine Yes Jennifer [address] [facility] HCl HCl 8-20 [place] as needed [facility] - 00:[facility]: [facility] l [facility] Escitalopra Escitalopra 2019-0 Yes Jennifer [address] [facility] m Oxalate m Oxalate 7-15 [place] Luke s - 00:00: [facility] 00 l [facility] Albuterol No 2 [facility] (Proair Hfa S - Inh) 8 [facility] [place] [facility] Carvedilol No 25mg [facility] (Coreg) 25 S - Mg TAB [place] [facility] Chlordiazep No 25mg [facility] oxide S - (Librium) [place] 25 Mg CAP [facility] Fluoxetine No 20mg [facility] Hcl S - (Prozac) 20 [place] Mg CAP [facility] Folic Acid No 1mg [facility] (Folvite) 1 S - Mg TAB [place] [facility] Losartan No 50mg [facility] Potassium S - (Cozaar) 50 [place] Mg TAB [facility] Omeprazole No 40mg [facility] (Prilosec) S - 40 Mg CPDR [place] [facility] Thiamine No 100mg [facility] Hcl S - (Vitamin [place] B-1) 100 Mg [facility] TAB l Hospita [facility] Albuterol No 2 [facility] (Proair Hfa S Inh) 8 [facility] AERO Carvedilol No 25mg Twice A JAMESON U (Coreg) 25 Day S Mg TAB Health Chlordiazep No 25mg Three [facility] oxide Times A S (Librium) Day Health 25 Mg CAP Fluoxetine No 20mg Daily [facility] Hcl S (Prozac) 20 Health Mg CAP Folic Acid No 1mg Daily [facility] (Folvite) 1 S Mg TAB Health Losartan No 50mg Daily [facility] Potassium S (Cozaar) 50 Health Mg TAB Omeprazole No 40mg Daily [facility] (Prilosec) S 40 Mg CPDR Health Thiamine No 100mg Daily [facility] Hcl S (Vitamin Health B-1) 100 Mg TAB Albuterol Albuterol Yes Jennifer 3 ml as [facility] Sulfate Sulfate [place] needed [facility] Esomeprazol Esomeprazol Yes Jennifer TAKE [address] [facility] e Magnesium e Magnesium [place] CAPSULE BY [facility] MOUTH [facility] EVERY DAY l [facility]pat[facility] ent Clinics Symbicort Symbicort Yes Jennifer inhale [address] [facility] [place] puffs by [facility] - mouth [facility] twice l daily [facility] Viberzi Viberzi Yes Jennifer [address] [facility] [place] with food [facility] Proctofoam Proctofoam Yes Jennifer [address] [facility] HC [place] applicatio [facility] n as [facility] needed l [facility] Gabapentin Gabapentin Yes Jennifer TAKE ONE [facility] [place] CAPSULE BY [facility]TH 3 [facility] TIMES A l DAY [facility] Losartan Losartan Yes Jennifer TAKE [address] [facility] Potassium Potassium [place] TABLET BY [facility] EVERY DAY l [facility] Ventolin Ventolin Yes Jennifer [address] [address] HFA HFA [place] inhaled [facility] - every 4-6 [facility] hours as l needed [facility] Chlordiazep Chlordiazep Yes Jennifer (Schedule [facility] oxide HCl oxide HCl [place] IV Drug) [facility] - TK 1 C PO [facility] TID l [facility] Nicotine Nicotine Yes Jennifer [address] [facility] [place] skin [facility] Carvedilol Carvedilol Yes Jennifer 1 tab(s) [address] [facility] [place] times a [facility] - day orally [facility] l [facility] Vital Signs Vital Name Observation Time Observation Value Comments Source Heart Rate 2020-04-01 05:01:00 75 /min [facility] Respiratory rate 2020-04-01 05:01:00 16 /min [facility] EDUonGo BP Systolic 2020-04-01 05:01:00 102 mm[Hg] [facility] BP Diastolic 2020-04-01 05:01:00 59 mm[Hg] [facility] Heart Rate 2020-04-01 04:21:00 75 /min [facility] Respiratory rate 2020-04-01 04:21:00 16 /min [facility] Eduson [employer] BP Systolic 2020-04-01 04:21:00 102 mm[Hg] [facility] BP Diastolic 2020-04-01 04:21:00 59 mm[Hg] [facility] Procedures Procedure Date / Time Performed Performing Clinician [facility] e Computed tomography of 2020-03-31 00:00:00 [facility] abdomen and pelvis without contrast Plan of Care Planned Activity Planned Date Details Comments Source Goal Patient referral [code = [facility] JOSE Ni [id number] [facility] Gall[facility] (DC[facility] LON - J [facility] Encounters Start End Encounter Admission Attending Care Care Encounter Source Date/Time Date/Time Type Type Clinicians Facility Department ID 2021-09-[address] [facility] [id number] [facility] 11:30:08 Jennifer [id number] [facility] 2020-03-31 Inpatient JAMESON LON [id number] [facility] 23:29:00 [id number] [facility] 2021-04-13 2021-04-13 Outpatient [facility] [id number] [facility] 2020-03-31 2020-04-01 Departed GAYLA Ni [id number] [facility] 23:29:00 04:32:[address] 2020-03-31 2020-04-01 Departed GAYLA Ni [id number] [facility] 23:29:00 04:32:[address] 2020-03-05 2020-03-05 [facility] [id number] [facility] 08:20:00 08:20:00 [facility] Medicine Medicine Outpati ent Clinics 2019-09-24 2019-09-24 [facility] [id number] [facility] 19:14:00 19:14:00 [facility] Medicine l Medicine Outpati ent Clinics 2019-04-15 2019-04-15 [facility] [id number] [address] 08:40:00 08:40:00 [facility] Medicine l Medicine Outpati ent Clinics 2019-03-10 2019-03-10 [facility] [id number] [address] 14:40:00 14:40:00 [facility] Medicine l Medicine Outpati ent Clinics 2019-02-26 2019-02-26 [facility] [id number] 09:40:00 09:40:[address] [facility] ent [facility] 2019-02-24 2019-02-24 [facility] [id number] 14:16:00 14:16:00 [facility] 2018-11-14 2018-11-14 [facility] [id number] 13:30:00 13:30:00 [facility] Results Test Description Test Time Test Comments Results Result Comments Source Venous blood hemoglobin measurement (mass/volume) 2020-04-01 00:15:00 Test Item Value Reference Range Interpretation Comme nts Bedside Hemoglobin (test code = 36180-0) 13.9 g/dL 13.0-17.5 [facility] hematocrit (volume fraction)2020-04-01 00:15:00 Test Item Value Reference Range Interpretation Comments Bedside Hematocrit (test code = 41.0 % 40.0-53.0 51951-6) [facility] whole blood sodium measurement (moles/volume)2020-04-01 00:15:00 Test Item Value Reference Range Interpretation Comments Bedside Sodium (test code = 136 mmol/L 136-145 08525-3) [facility] whole blood potassium measurement (moles/volume)2020-04-01 00:15:00 Test Item Value Reference Range Interpretation Comments Bedside Potassium (test code = 3.8 mmol/L 3.5-5.1 34907-6) [facility] whole blood chloride measurement (moles/volume)2020-04-01 00:15:00 Test Item Value Reference Range Interpretation Comments Bedside Chloride (test code = 101 mmol/L 100-112 14091-0) [facility] whole blood total carbon dioxide measurement (moles/volume)2020-04-01 00:15:00 Test Item Value Reference Range Interpretation Comments Bedside Total CO2 (test code = 23.0 mmol/L 24.0-33.0 2026-) [facility] whole blood urea nitrogen (BUN) measurement (mass/volume) 2020-04-01 00:15:00 Test Item Value Reference Range Interpretation Comments Bedside Blood Urea Nitrogen (test 12 mg/dL -20 code = 97947-2) [facility] creatinine measurement (mass/volume)2020-04-01 00:15:00 Test Item Value Reference Range Interpretation Comments Bedside Creatinine (test code = 2.1 mg/dL 0.9-1.5 66396-3) [facility] whole blood glucose measurement (mass/volume)2020-04-01 00:15:00 Test Item Value Reference Range Interpretation Comments Bedside Glucose (test code = 99 mg/dL 60-100 43769-7) [facility] (moles/volume)2020-04-01 00:15:00 Test Item Value Reference Range Interpretation Comments Bedside Whole Blood Ionized 0.99 mmol/L 1.12-1.32 Calcium (test code = 1994-3) [facility] anion [id number] 00:15:00 Test Item Value Reference Range Interpretation Comments Bedside Anion Gap (test code = 81610-2) 17 8-18 [facility] [id number] 00:15:00 Test Item Value Reference Range Interpretation Comments Estimat Glomerular Filtration Rate 37 73-125 (test code = 42278-8) [facility] whole blood sodium measurement (moles/volume)2020-04-01 00:15:00 Test Item Value Reference Range Interpretation Comments Bedside Sodium (test code = 136 mmol/L 26032-8) [facility] whole blood potassium measurement (moles/volume)2020-04-01 00:15:00 Test Item Value Reference Range Interpretation Comments Bedside Potassium (test code = 3.8 mmol/L 57966-4) [facility] whole blood chloride measurement (moles/volume)2020-04-01 00:15:00 Test Item Value Reference Range Interpretation Comments Bedside Chloride (test code = 101 mmol/L 34234-5) [facility] whole blood total carbon dioxide measurement (moles/volume)2020-04-01 00:15:00 Test Item Value Reference Range Interpretation Comments Bedside Total CO2 (test code = 23.0 mmol/L 7-1) [facility] whole blood urea nitrogen (BUN) measurement (mass/volume)2020-04-01 00:15:00 Test Item Value Reference Range Interpretation Comments Bedside Blood Urea Nitrogen (test 12 mg/dL code = 83663-0) [facility] 2020-04-01 00:15:00 Test Item Value Reference Range Interpretation Comments Bedside Creatinine (test code = 2.1 mg/dL 54640-7) [facility] whole blood glucose measurement (mass/volume)2020-04-01 00:15:00 Test Item Value Reference Range Interpretation Comments Bedside Glucose (test code = 99 mg/dL 51201-9) [facility] (moles/volume)2020-04-01 00:15:00 Test Item Value Reference Range Interpretation Comments Bedside Whole Blood Ionized 0.99 mmol/L Calcium (test code = 1994-3) [facility] anion [id number] 00:15:00 Test Item Value Reference Range Interpretation Comments Bedside Anion Gap (test code = 29382-7) 17 [facility] [id number] 00:15:00 Test Item Value Reference Range Interpretation Comments Estimat Glomerular Filtration Rate 37 (test code = 88943-1) [facility] blood hemoglobin measurement (mass/volume)2020-04-01 00:15:00 Test Item Value Reference Range Interpretation Comments Bedside Hemoglobin (test code = 13.9 g/dL 10910-1) [facility] blood hematocrit (volume fraction) 2020-04-01 00:15:00 Test Item Value Reference Range Interpretation Comments Bedside Hematocrit (test code = 41.0 % 26709-6) [facility] blood lactic acid measurement (moles/volume)2020-04-01 00:10:00 Test Item Value Reference Range Interpretation Comments Bedside Lactic Acid Venous (test 1.74 mmol/L 0.50-2.20 code = 2519-7) [facility] blood lactic acid measurement (moles/volume)2020-04-01 00:10:00 Test Item Value Reference Range Interpretation Comments Bedside Lactic Acid Venous (test 1.74 mmol/L code = 2519-7) [facility] platelet count (count/volume) 2020-03-31 11:50:00 Test Item Value Reference Range Interpretation Comments Platelet Count (test code = 105 10*3/uL 150-450 777-3) [facility] blood platelet mean volume [id number] 11:50:00 Test Item Value Reference Range Interpretation Comments Mean Platelet Volume (test code = 10.1 fL 5.7-10.7 74299-3) [facility] comment [id number] 11:50:00 Test Item Value Reference Range Interpretation Comments Manual Differential (test code = ----- 8265-1) [facility] Health[facility]ual blood segmented neutrophils/100 [id number] 11:50:00 Test Item Value Reference Range Interpretation Comments Neutrophils % (Manual) (test code = 61 % 42-75 769-0) [facility] blood lymphocytes/100 [id number] 11:50:00 Test Item Value Reference Range Interpretation Comments Lymphocytes % (Manual) (test code = 23 % 21-51 737-7) [facility] blood monocytes/100 [id number] 11:50:00 Test Item Value Reference Range Interpretation Comments Monocytes % (Manual) (test code = 14 % 1-9 744-3) [facility] blood eosinophil count as percentage of total leukocytes 2020-03-31 11:50:00 Test Item Value Reference Range Interpretation Comments Eosinophils % (Manual) (test code = 2 % 0-7 714-6) [facility] Health[facility] platelet detection by light [id number] 11:50:00 Test Item Value Reference Range Interpretation Comments Platelet Estimate (test code = Decreased 9317-9) [facility] erythrocyte morphology finding [id number] 11:50:00 Test Item Value Reference Range Interpretation Comments Red Blood Cell Morphology (test code = Normal 6742-1) [facility] or plasma sodium measurement (moles/volume)2020-03-31 11:50:00 Test Item Value Reference Range Interpretation Comments Sodium Level (test code = 2951-2) 135 mmol/L 136-145 [facility] or plasma potassium measurement (moles/volume)2020-03-31 11:50:00 Test Item Value Reference Range Interpretation Comments Potassium Level (test code = 3.7 mmol/L 3.5-5.1 2823-3) [facility] or plasma chloride measurement (moles/volume)2020-03-31 11:50:00 Test Item Value Reference Range Interpretation Comments Chloride Level (test code = 102 mmol/L 98-107 2075-0) [facility] or plasma total carbon dioxide measurement (moles/volume) 2020-03-31 11:50:00 Test Item Value Reference Range Interpretation Comments Carbon Dioxide Level (test code = 19 mmol/L -2027-9) [facility] or plasma anion gap determination (moles/volume)2020-03-31 11:50:00 Test Item Value Reference Range Interpretation Comments Anion Gap (test code = 06276-0) 18 8-18 [facility] or plasma urea nitrogen measurement (mass/volume)2020-03-31 11:50:00 Test Item Value Reference Range Interpretation Comments Blood Urea Nitrogen (test code = 11 mg/dL 05-17 3094-0) [facility] or plasma creatinine measurement (mass/volume)2020-03-31 11:50:00 Test Item Value Reference Range Interpretation Comments Creatinine (test code = 2160-0) 1.8 mg/dL 0.7-1.3 [facility] estimate [id number] 11:50:00 Test Item Value Reference Range Interpretation Comments Estimat Glomerular Filtration Rate 44 73-125 (test code = 12558-8) [facility] or plasma urea nitrogen/creatinine mass [id number] 11:50:00 Test Item Value Reference Range Interpretation Comments BUN/Creatinine Ratio (test code = 6 3097-3) [facility] or plasma glucose measurement (mass/volume)2020-03-31 11:50:00 Test Item Value Reference Range Interpretation Comments Glucose Level (test code = 2345-7) 98 mg/dL 60-100 [facility] HealthOsmolality of Serum or Plasma by [id number] 11:50:00 Test Item Value Reference Range Interpretation Comments Calculated Osmolality (test code 269 mosm/kg = 10317-9) [facility] or plasma calcium measurement (mass/volume)2020-03-31 11:50:00 Test Item Value Reference Range Interpretation Comments Calcium Level (test code = 76744-6) 7.8 mg/dL 8.4-10.2 [facility] or plasma total bilirubin measurement (mass/volume) 2020-03-31 11:50:00 Test Item Value Reference Range Interpretation Comments Total Bilirubin (test code = 0.8 mg/dL 0.2-1.2 1974-2) [facility] or plasma total combined glucuronidated bilirubin and albumin bound bilirubin measurement (mass/volume)2020-03-31 11:50:00 Test Item Value Reference Range Interpretation Comments Direct Bilirubin (test code = 0.4 mg/dL 0.0-0.5 1968-7) [facility] Health[facility] or plasma aspartate aminotransferase measurement (enzymatic activity/volume)2020-03-31 11:50:00 Test Item Value Reference Range Interpretation Comments Aspartate Amino Transf (AST/SGOT) 67 U/L 5-34 (test code = 1920-8) [facility] or plasma alanine aminotransferase measurement (enzymatic activity/volume)2020-03-31 11:50:00 Test Item Value Reference Range Interpretation Comments Alanine Aminotransferase (ALT/SGPT) 42 U/L 0-55 (test code = 1742-6) [facility] or plasma protein measurement (mass/volume)2020-03-31 11:50:00 Test Item Value Reference Range Interpretation Comments Total Protein (test code = 2885-2) 7.5 g/dL 6.4-8.3 [facility] or plasma albumin measurement (mass/volume)2020-03-31 11:50:00 Test Item Value Reference Range Interpretation Comments Albumin (test code = 1751-7) 4.0 g/dL 3.5-5.0 [facility] globulin measurement by calculation (mass/volume)2020-03-31 11:50:00 Test Item Value Reference Range Interpretation Comments Globulin (test code = 02548-0) 3.5 g/dL [facility] or plasma albumin/globulin mass [id number] 11:50:00 Test Item Value Reference Range Interpretation Comments Albumin/Globulin Ratio (test code = 1.1 1759-0) [facility] or plasma alkaline phosphatase measurement (enzymatic activity/volume)2020-03-31 11:50:00 Test Item Value Reference Range Interpretation Comments Alkaline Phosphatase (test code = 71 U/L 40-150 6768-6) [facility] or plasma lipase measurement (enzymatic activity/volume) 2020-03-31 11:50:00 Test Item Value Reference Range Interpretation Comments Lipase (test code = 3040-3) 299 U/L 8-78 [facility] HealthAutomated blood leukocyte count (number/volume)2020-03-31 11:50:00 Test Item Value Reference Range Interpretation Comments White Blood Count (test code = 11.4 10*3/uL 4.5-11.5 6690-2) [facility] erythrocytes automated count (number/volume)2020-03-31 11:50:00 Test Item Value Reference Range Interpretation Comments Red Blood Count (test code = 4.25 10*6/uL 4.4-6.2 789-8) [facility] hemoglobin measurement (mass/volume)2020-03-31 11:50:00 Test Item Value Reference Range Interpretation Comments Hemoglobin (test code = 718-7) 14.5 g/dL 13.0-17.5 [facility] HealthAutomated blood hematocrit (volume fraction)2020-03-31 11:50:00 Test Item Value Reference Range Interpretation Comments Hematocrit (test code = 4544-3) 41.8 % 39.0-52.5 [facility] HealthAutomated erythrocyte mean corpuscular volume (MCV) measurement 2020-03-31 11:50:00 Test Item Value Reference Range Interpretation Comments Mean Corpuscular Volume (test code = 98.4 fL 80-94 787-2) [facility]Automated erythrocyte mean corpuscular hemoglobin (mass per erythrocyte)2020-03-31 11:50:00 Test Item Value Reference Range Interpretation Comments Mean Corpuscular Hemoglobin (test 34.1 pg 27.0-33.0 code = 785-6) [facility] erythrocyte mean corpuscular hemoglobin concentration measurement (mass/[id number] 11:50:00 Test Item Value Reference Range Interpretation Comments Mean Corpuscular Hemoglobin Concent 34.7 g/dL 33.0-37.0 (test code = 786-4) [facility]Automated erythrocyte distribution width [id number] 11:50:00 Test Item Value Reference Range Interpretation Comments Red Cell Distribution Width (test code 12.8 % 10.7-14.5 = 788-0) [facility]um or plasma sodium measurement (moles/volume)2020-03-31 11:50:00 Test Item Value Reference Range Interpretation Comments Sodium Level (test code = 2951-2) 135 mmol/L [facility] potassium [facility] (moles/volume)2020-03-31 11:50:00 Test Item Value Reference Range Interpretation Comments Potassium Level (test code = 3.7 mmol/L 2823-3) [facility] or plasma chloride measurement (moles/volume)2020-03-31 11:50:00 Test Item Value Reference Range Interpretation Comments Chloride Level (test code = 102 mmol/L 5-0) [facility] or plasma total carbon dioxide measurement (moles/volume)2020-03-31 11:50:00 Test Item Value Reference Range Interpretation Comments Carbon Dioxide Level (test code = 19 mmol/L 2027-) [facility] or plasma anion gap determination (moles/volume)2020-03-31 11:50:00 Test Item Value Reference Range Interpretation Comments Anion Gap (test code = 72170-3) 18 [facility] or plasma urea nitrogen measurement (mass/volume)2020-03-31 11:50:00 Test Item Value Reference Range Interpretation Comments Blood Urea Nitrogen (test code = 11 mg/dL 3094-0) [facility] or plasma creatinine measurement (mass/volume)2020-03-31 11:50:00 Test Item Value Reference Range Interpretation Comments Creatinine (test code = 2160-0) 1.8 mg/dL [facility] [id number] 11:50:00 Test Item Value Reference Range Interpretation Comments Estimat Glomerular Filtration Rate 44 (test code = 74661-9) [facility] or plasma urea nitrogen/creatinine mass [id number] 11:50:00 Test Item Value Reference Range Interpretation Comments BUN/Creatinine Ratio (test code = 6 3097-3) [facility] or plasma glucose measurement (mass/volume)2020-03-31 11:50:00 Test Item Value Reference Range Interpretation Comments Glucose Level (test code = 2345-7) 98 mg/dL [facility] SpaldingOsmolality of Serum or Plasma by calculation 2020-03-31 11:50:00 Test Item Value Reference Range Interpretation Comments Calculated Osmolality (test code 269 mosm/kg = 17515-7) [facility] or plasma calcium measurement (mass/volume)2020-03-31 11:50:00 Test Item Value Reference Range Interpretation Comments Calcium Level (test code = 65721-5) 7.8 mg/dL [facility] or plasma total bilirubin measurement (mass/volume)2020-03-31 11:50:00 Test Item Value Reference Range Interpretation Comments Total Bilirubin (test code = 0.8 mg/dL 1974-09) [facility] or plasma total combined glucuronidated bilirubin and albumin bound bilirubin measurement (mass/volume)2020-03-31 11:50:00 Test Item Value Reference Range Interpretation Comments Direct Bilirubin (test code = 0.4 mg/dL 1968-02) [facility] or plasma aspartate aminotransferase measurement (enzymatic activity/volume)2020-03-31 11:50:00 Test Item Value Reference Range Interpretation Comments Aspartate Amino Transf (AST/SGOT) 67 U/L (test code = 1920-8) [facility] or plasma alanine aminotransferase measurement (enzymatic activity/volume)2020-03-31 11:50:00 Test Item Value Reference Range Interpretation Comments Alanine Aminotransferase (ALT/SGPT) 42 U/L (test code = 1742-6) [facility] or plasma protein measurement (mass/volume)2020-03-31 11:50:00 Test Item Value Reference Range Interpretation Comments Total Protein (test code = 2885-2) 7.5 g/dL [facility] or plasma albumin measurement (mass/volume)2020-03-31 11:50:00 Test Item Value Reference Range Interpretation Comments Albumin (test code = 1751-7) 4.0 g/dL [facility] globulin measurement by calculation (mass/volume)2020-03-31 11:50:00 Test Item Value Reference Range Interpretation Comments Globulin (test code = 51825-3) 3.5 g/dL [facility] or plasma albumin/globulin mass ratio 2020-03-31 11:50:00 Test Item Value Reference Range Interpretation Comments Albumin/Globulin Ratio (test code = 1.1 1759-0) [facility] alkaline [facility] measurement (enzymatic activity/volume)2020-03-31 11:50:00 Test Item Value Reference Range Interpretation Comments Alkaline Phosphatase (test code = 71 U/L 6768-6) [facility] or plasma lipase measurement (enzymatic activity/volume)2020-03-31 11:50:00 Test Item Value Reference Range Interpretation Comments Lipase (test code = 3040-3) 299 U/L [facility] leukocyte count (number/volume)2020-03-31 11:50:00 Test Item [...] Hemoglobin (test code = 718-7) 14.5 g/dL [facility] (volume fraction) 2020-03-31 11:50:00 Test Item Value Reference Range Interpretation Comments Hematocrit (test code = 4544-3) 41.8 % [facility] erythrocyte mean corpuscular volume (MCV) [id number] 11:50:00 Test Item Value Reference Range Interpretation Comments Mean Corpuscular Volume (test code = 98.4 fL 787-2) [facility] erythrocyte mean corpuscular hemoglobin (mass per erythrocyte)2020-03-31 11:50:00 Test Item Value Reference Range Interpretation Comments Mean Corpuscular Hemoglobin (test 34.1 pg code = 785-6) [facility] erythrocyte mean corpuscular hemoglobin concentration measurement (mass/ivc6511-31-14 11:50:00 Test Item Value Reference Range Interpretation Comments Mean Corpuscular Hemoglobin Concent 34.7 g/dL (test code = 786-4) [facility] erythrocyte distribution width [id number] 11:50:00 Test Item Value Reference Range Interpretation Comments Red Cell Distribution Width (test code 12.8 % = 788-0) [facility] blood platelet count (count/volume) 2020-03-31 11:50:00 Test Item Value Reference Range Interpretation Comments Platelet Count (test code = 105 10*3/uL 777-3) [facility] mean volume [id number] 11:50:00 Test Item Value Reference Range Interpretation Comments Mean Platelet Volume (test code = 10.1 fL 31603-3) [facility] [id number] 11:50:00 Test Item Value Reference Range Interpretation Comments Manual Differential (test code = ----- 8265-1) [facility] blood segmented neutrophils/100 [id number] 11:50:00 Test Item Value Reference Range Interpretation Comments Neutrophils % (Manual) (test code = 61 % 769-0) [facility] blood lymphocytes/100 leukocytes 2020-03-31 11:50:00 Test Item Value Reference Range Interpretation Comments Lymphocytes % (Manual) (test code = 23 % 737-7) [facility] blood monocytes/100 leukocytes 2020-03-31 11:50:00 Test Item Value Reference Range Interpretation Comments Monocytes % (Manual) (test code = 14 % 744-3) [facility] blood eosinophil count as percentage of total [id number] 11:50:00 Test Item Value Reference Range Interpretation Comments Eosinophils % (Manual) (test code = 2 % 714-6) [facility] platelet detection by light microscopy 2020-03-31 11:50:00 Test Item Value Reference Range Interpretation Comments Platelet Estimate (test code = Decreased 9317-9) [facility] erythrocyte morphology finding [id number] 11:50:00 Test Item Value Reference Range Interpretation Comments Red Blood Cell Morphology (test code = Normal 6742-1) [facility]inal[facility] specimen collection method 2020-03-31 02:48:00 Test Item Value Reference Range Interpretation Comments Urine Source (test code = 17446-9) URINE [facility] [id number] 02:48:00 Test Item Value Reference Range Interpretation Comments Urine Color (test code = 5778-6) Yellow Yel-Dyan * [facility] clarity [id number] 02:48:00 Test Item Value Reference Range Interpretation Comments Urine Appearance (test code = 77226-4) Clear Clear * [facility] pH measurement by automated test [id number] 02:48:00 Test Item Value Reference Range Interpretation Comments Urine pH (test code = 13799-3) 5.0 5.0-8.0 [facility] gravity of Urine by Automated test [id number] 02:48:00 Test Item Value Reference Range Interpretation Comments Urine Specific [place] (test code = 1.020 1.005-1.030 23863-7) [facility] protein measurement by automated test strip (mass/volume) 2020-03-31 02:48:00 Test Item Value Reference Range Interpretation Comments Urine Protein (test code = 68062-0) 100 mg/dL Negative * [facility] glucose measurement by automated test strip (mass/volume) 2020-03-31 02:48:00 Test Item Value Reference Range Interpretation Comments Urine Glucose (UA) (test code Negative mg/dL Negative * = 54267-7) [facility] ketones measurement by automated test strip (mass/volume) 2020-03-31 02:48:00 Test Item Value Reference Range Interpretation Comments Urine Ketones (test code = 40976-9) 15 mg/dL Negative * [facility] erythrocytes count by automated test strip (number/volume) 2020-03-31 02:48:00 Test Item Value Reference Range Interpretation Comments Urine Occult Blood (test Negative {Butch}/uL Negative * code = 35939-7) [facility] nitrite detection by automated test [id number] 02:48:00 Test Item Value Reference Range Interpretation Comments Urine Nitrite (test code = 09911-5) Negative Negative [facility] total bilirubin measurement by automated test strip (mass/volume)2020-03-31 02:48:00 Test Item Value Reference Range Interpretation Comments Urine Bilirubin (test code = 64595-6) 1 mg/dL Negative [facility] HealthConfirmatory urine bilirubin [id number] 02:48:00 Test Item Value Reference Range Interpretation Comments Urine Ictotest (test code = 84674-5) Positive Negative [facility] urobilinogen measurement by automated test strip (mass/volume)2020-03-31 02:48:00 Test Item Value Reference Range Interpretation Comments Urine Urobilinogen (test code = 4.0 mg/dL 0.0-1.0 12714-7) [facility] leukocytes count by automated test strip (number/volume) 2020-03-31 02:48:00 Test Item Value Reference Range Interpretation Comments Urine Leukocyte Esterase (test 25 {Zohaib}/uL Negative code = 07754-8) [facility] HealthMicroscopic examination of [id number] 02:48:00 Test Item Value Reference Range Interpretation Comments Microscopic Urinalysis (T) (test code = ----- 19746-2) [facility] sediment erythrocyte count by microscopy (number/high power field)2020-03-31 02:48:00 Test Item Value Reference Range Interpretation Comments Urine RBC (test code = None Seen /[HPF] 0-2 49080-0) [facility] sediment leukocyte count by microscopy (number/high power field)2020-03-31 02:48:00 Test Item Value Reference Range Interpretation Comments Urine WBC (test code = 5821-4) 0-5 /[HPF] 0-5 [facility] sediment epithelial cell count by microscopy (number/high power field)2020-03-31 02:48:00 Test Item Value Reference Range Interpretation Comments Urine Epithelial Cells (test code Few /[HPF] Few = 5787-7) [facility] sediment crystal count by microscopy (number/high power field)2020-03-31 02:48:00 Test Item Value Reference Range Interpretation Comments Urine Crystals (test code = None Seen /[HPF] None * 81305-5) [facility] HealthAmorphous sediment detection in urine sediment by light [id number] 02:48:00 Test Item Value Reference Range Interpretation Comments Urine Amorphous Sediment Moderate /[HPF] None * (test code = 8246-1) [facility] sediment bacteria count by microscopy (number/high power field)2020-03-31 02:48:00 Test Item Value Reference Range Interpretation Comments Urine Bacteria (test code = None Seen /[HPF] None 5769-5) [facility] sediment casts count by microscopy (number/low power field) 2020-03-31 02:48:00 Test Item Value Reference Range Interpretation Comments Urine Casts (test code = Present /[LPF] None * 9842-6) [facility] sediment hyaline cast count by microscopy (number/low power field)2020-03-31 02:48:00 Test Item Value Reference Range Interpretation Comments Urine Hyaline Casts (test code = 2-5 /[LPF] 0-1 5796-8) [facility]Fine granular cast count in urine sediment by microscopy (number/low power field )2020-03-31 02:48:00 Test Item Value Reference Range Interpretation Comments Urine Fine Granular Casts (test 6-10 /[LPF] None * code = 15233-3) [facility] HealthYeast detection in urine sediment by light [id number] 02:48:00 Test Item Value Reference Range Interpretation Comments Urine Yeast (test code = None Seen /[HPF] None 41650-4) [facility] comment 02:48:00 Test Item Value Reference Range Interpretation Comments Urinalysis Comment (test * See_Comment [A utomated message] The code = 8262-8) system which generated this result tra nsmitted reference range : *. The reference range was not used to interpr et this result as normal/abnormal . [facility] comment 02:48:00 Test Item Value Reference Range Interpretation Comments Urine Culture Indicated (test code = Not Ind 8264-4) [facility] HealthSpecific gravity of Urine by Automated test [id number] 02:48:00 Test Item Value Reference Range Interpretation Comments Urine Specific [place] (test code = 1.020 94157-5) [facility] protein measurement by automated test strip (mass/volume)2020-03-31 02:48:00 Test Item Value Reference Range Interpretation Comments Urine Protein (test code = 75080-4) 100 mg/dL [facility] glucose measurement by automated test strip (mass/volume)2020-03-31 02:48:00 Test Item Value Reference Range Interpretation Comments Urine Glucose (UA) (test code Negative mg/dL = 46399-3) [facility] ketones measurement by automated test strip (mass/volume)2020-03-31 02:48:00 Test Item Value Reference Range Interpretation Comments Urine Ketones (test code = 78654-8) 15 mg/dL [facility] erythrocytes count by automated test strip (number/volume)2020-03-31 02:48:00 Test Item Value Reference Range Interpretation Comments Urine Occult Blood (test Negative {Butch}/uL code = 34719-7) [facility] nitrite detection by automated test [id number] 02:48:00 Test Item Value Reference Range Interpretation Comments Urine Nitrite (test code = 07243-3) Negative [facility] total bilirubin measurement by automated test strip (mass/volume)2020-03-31 02:48:00 Test Item Value Reference Range Interpretation Comments Urine Bilirubin (test code = 72229-3) 1 mg/dL [facility] urine bilirubin measurement 2020-03-31 02:48:00 Test Item Value Reference Range Interpretation Comments Urine Ictotest (test code = 80502-8) Positive [facility] urobilinogen measurement by automated test strip (mass/volume)2020-03-31 02:48:00 Test Item Value Reference Range Interpretation Comments Urine Urobilinogen (test code = 4.0 mg/dL 79448-3) [facility] leukocytes count by automated test strip (number/volume)2020-03-31 02:48:00 Test Item Value Reference Range Interpretation Comments Urine Leukocyte Esterase (test 25 {Zohaib}/uL code = 83051-2) [facility]dingMicroscopic examination of [id number] 02:48:00 Test Item Value Reference Range Interpretation Comments Microscopic Urinalysis (T) (test code = ----- 63693-2) [facility] sediment erythrocyte count by microscopy (number/high power field)2020-03-31 02:48:00 Test Item Value Reference Range Interpretation Comments Urine RBC (test code = None Seen /[HPF] 33131-3) [facility] sediment leukocyte count by microscopy (number/high power field)2020-03-31 02:48:00 Test Item Value Reference Range Interpretation Comments Urine WBC (test code = 5821-4) 0-5 /[HPF] [facility] sediment epithelial cell count by microscopy (number/high power field)2020-03-31 02:48:00 Test Item Value Reference Range Interpretation Comments Urine Epithelial Cells (test code Few /[HPF] = 5787-7) [facility] sediment crystal count by microscopy (number/high power field)2020-03-31 02:48:00 Test Item Value Reference Range Interpretation Comments Urine Crystals (test code = None Seen /[HPF] 62136-4) [facility] sediment detection in urine sediment by light [id number] 02:48:00 Test Item Value Reference Range Interpretation Comments Urine Amorphous Sediment Moderate /[HPF] (test code = 8246-1) [facility] sediment bacteria count by microscopy (number/high power field)2020-03-31 02:48:00 Test Item Value Reference Range Interpretation Comments Urine Bacteria (test code = None Seen /[HPF] 5769-5) [facility] sediment casts count by microscopy (number/low power field)2020-03-31 02:48:00 Test Item Value Reference Range Interpretation Comments Urine Casts (test code = Present /[LPF] 9842-6) [facility] sediment hyaline cast count by microscopy (number/low power field)2020-03-31 02:48:00 Test Item Value Reference Range Interpretation Comments Urine Hyaline Casts (test code = 2-5 /[LPF] 5796-8) [facility] granular cast count in urine sediment by microscopy (number/low power field )2020-03-31 02:48:00 Test Item Value Reference Range Interpretation Comments Urine Fine Granular Casts (test 6-10 /[LPF] code = 48525-8) [facility]dingYeast detection in urine sediment by light [id number] 02:48:00 Test Item Value Reference Range Interpretation Comments Urine Yeast (test code = None Seen /[HPF] 26159-3) [facility] 02:48:00 Test Item Value Reference Range Interpretation Comments Urinalysis Comment (test code = 8262-8) * [facility] comment 02:48:00 Test Item Value Reference Range Interpretation Comments Urine Culture Indicated (test code = Not Ind 8264-4) [facility]dingUrinalysis specimen collection method 2020-03-31 02:48:00 Test Item Value Reference Range Interpretation Comments Urine Source (test code = 02976-8) URINE [facility] color [id number] 02:48:00 Test Item Value Reference Range Interpretation Comments Urine Color (test code = 5778-6) Yellow [facility]ding[facility] clarity [id number] 02:48:00 Test Item Value Reference Range Interpretation Comments Urine Appearance (test code = 69594-2) Clear [facility] pH measurement by automated test strip 2020-03-31 02:48:00 Test Item Value Reference Range Interpretation Comments Urine pH (test code = 59512-8) 5.0 [facility]
[2021-10-26 23:11] LABS: Absolute Lymphocytes (CBC) 0.3 K/uL (0.7-4.9); Hematocrit 36.1 % (39.6-49.0); Lymphocytes % 5.3 % (15.3-44.8); MPV 8.6 fL (7.6-11.3); RBC Red Blood Cell Count 3.65 M/uL (4.33-5.43)
[2021-10-26 23:12] LABS: Protime INR 1.58
[2021-10-26 23:22] LABS: Potassium 3.4 mmol/L (3.5-5.1)
--- NOTE | 2021-10-27 00:18 | EDPHYS ---
Physician Documentation [facility] Name: Sung Brown Jr Age: 46 yrs Sex: Male : 1975 Arrival Date: 10/26/2021 Time: 20:42 Bed 15 Private MD: ED Physician Anthony Andersen HPI: 10/26 21:12 This 46 yrs old Male presents to ER via Ambulatory with complaints of Post rn oncology Bleeding - Mouth. 21:12 The patient presents with bleeding. The problem is located in the mouth. Onset: The rn symptoms/episode began/occurred today. Duration: The symptoms are continuous. Modifying factors: The symptoms are alleviated by nothing, the symptoms are aggravated by nothing. Associated signs and symptoms: Pertinent negatives: fever, inability to eat, pain, swelling. Severity of symptoms: At their worst the symptoms were mild, in the emergency department the symptoms are unchanged. The patient has not experienced similar symptoms in the past. The patient has been recently seen by a physician:. Pt reports had 3 teeth pulled earlier today, wont stop bleeding, is slow, has tried pressure but not helping, states is alcoholic and has liver problems so has problems with bleeding. Denies oral anticoagulation. No syncope/sob/dizziness. . Historical: - Allergies: 20:49 NKDA; ab2 - PMHx: 20:49 ADD/ADHD; COPD; Hepatitis; Hypertension; WPW; Cirrhosis of liver; ab2 - PSHx: 20:49 multiple orthopedic surgeries; ab2 - Immunization history:: Adult Immunizations up to date, Client reports receiving the 2nd dose of the Covid vaccine, Flu vaccine is up to date. - Social history:: Smoking status: Patient reports the use of cigarette tobacco products, smokes one-half pack cigarettes per day, Patient uses alcohol, on a daily basis. pint of whiskey or vodka daily. - Family history:: not pertinent. - Hospitalizations: : No recent hospitalization is reported. ROS: 21:12 Constitutional: Negative for fever, chills, and weight loss, Eyes: Negative for injury, rn pain, redness, and discharge, ENT: + dental bleeding Cardiovascular: Negative for chest pain, palpitations, and edema, Respiratory: Negative for shortness of breath, cough, wheezing, and pleuritic chest pain, Abdomen/GI: Negative for abdominal pain, nausea, vomiting, diarrhea, and constipation, Neuro: Negative for headache, weakness, numbness, tingling, and seizure. Exam: 21:12 Constitutional: This is a well developed, well nourished patient who is awake, alert, rn and in no acute distress. ALying back in bed with legs crossed, biting down on gauze. Head/Face: Normocephalic, atraumatic. ENT: Poor dentition with 3 recently extracted teeth, right upper and left upper, slow bleeding noted. Cardiovascular: Tachycardic, regular Respiratory: Lungs have equal breath sounds bilaterally, clear to auscultation and percussion. No rales, rhonchi or wheezes noted. No increased work of breathing, no retractions or nasal flaring. MS/ Extremity: Pulses equal, no cyanosis. Neurovascular intact. Full, normal range of motion. Equal circumference. Neuro: Awake and alert, GCS 15, oriented to person, place, time, and situation. Cranial nerves II-XII grossly intact. Motor strength 5/5 in all extremities. Sensory grossly intact. Cerebellar exam normal. Vital Signs: 20:45 BP 136 / 90; Pulse 124; Resp 18 S; Temp 100.3; Pulse Ox 99% ; Weight 109.32 kg; Height ab2 5 ft. 10 in. (177.80 cm); Pain 8/10; 22:23 BP 139 / 85 LA Sitting (auto/lg); Pulse 112 MON; Resp 20 S; Temp 99.9(T); Pulse Ox 99% tk1 on R/A; Pain 6/10; 10/27 00:30 BP 129 / 88 LA Sitting (auto/lg); Pulse 103 MON; Resp 20 S; Temp 98.9(T); Pulse Ox 100% tk1 on R/A; Pain 4/10; 10/26 20:45 Body Mass Index 34.58 (109.32 kg, 177.80 cm) ab2 MDM: 10/26 20:56 Patient medically screened. rn 22:49 ED course: Bleeding has improved after application of surgicel, but still slowly rn oozing. Reapplied gauze and told to bite down.. 10/27 00:15 Differential diagnosis: bleeding s/p tooth extraction. Data reviewed: vital signs, rn nurses notes, lab test result(s), and as a result, I will discharge patient. Counseling: I had a detailed discussion with the patient and/or guardian regarding: the historical points, exam findings, and any diagnostic results supporting the discharge/admit diagnosis, lab results, the need for outpatient follow up, to return to the emergency department if symptoms worsen or persist or if there are any questions or concerns that arise at home. Response to treatment: the patient's symptoms have markedly improved after treatment, and as a result, I will discharge patient. ED course: Bleeding markedly improved, gauze removed and surgicel left in, now ambulatory to bathroom and states doing much better. TOld him we can continue to monitor to see if needs chemical cauterization vs platelet transfusion, patient states he is tired and wants to go home. States happy with the improvement and nothing like it was before, wants to go home and states will return if worsens. Patient understands risks of leaving prematurely before observation complete. . 10/26 22:25 Order name: CBC with Diff; Complete Time: 00:26 rn 10/26 22:25 Order name: Basic Metabolic Panel; Complete Time: 23:49 rn 10/26 22:25 Order name: IV Start; Complete Time: 22:26 rn 10/26 22:25 Order name: Protime (+inr); Complete Time: 23:49 rn 10/26 22:25 Order name: Ptt, Activated; Complete Time: 23:49 rn 10/26 23:20 Order name: Manual Differential; Complete Time: 00:26 EDMS Administered Medications: No medications were administered Disposition Summary: 10/27/21 00:18 Discharge Ordered Location: Home rn Problem: new rn Symptoms: have improved rn Condition: Stable rn Diagnosis - Abnormal bleeding following dental extraction rn Followup: rn - With: Private Physician - When: As needed - Reason: Recheck today's complaints, Re-evaluation by your physician Discharge Instructions: - Discharge Summary Sheet rn - Bleeding After Dental marketing pr intern Forms: - Medication Reconciliation Form rn - Thank You Letter rn - Antibiotic marketing pr intern - Prescription Opioid Use rn Signatures: Dispatcher [employer] EDAnthony Yoon MD MD rn Bleininger, Alexis ab2 Corrections: (The following items were deleted from the chart) 00:17 00:15 ED course: Bleeding markedly improved, gauze removed and surgicel left in, now contract attorney to bathroom and states doing much better. TOld him we can continue to monitor to see if needs chemical cauterization vs platelet transfusion, patient states he is tired and wants to go home. States happy with the improvement and nothing like it was before, wants to go home and states will return if worsens. . rn
--- NOTE | 2021-10-27 00:18 | ER ---
Nurse's Notes [facility] Name: Sung Brown Jr Age: 46 yrs Sex: Male : 1975 Arrival Date: 10/26/2021 Time: 20:42 Bed 15 Private MD: Diagnosis: Abnormal bleeding following dental extraction Presentation: 10/26 20:45 Chief complaint: Patient states: "I had teeth pulled at 2pm and cant get my teeth to ab2 stop bleeding. I'm an alcoholic so I know I will bleed more but I cant stop it.". Coronavirus screen: Vaccine status: Patient reports receiving the 2nd dose of the covid vaccine. Client denies travel out of the [place] in the last 14 days. At this time, the client does not indicate any symptoms associated with coronavirus-19. Ebola Screen: Patient negative for fever greater than or equal to 101.5 degrees Fahrenheit, and additional compatible Ebola Virus Disease symptoms Patient denies exposure to infectious person. Patient denies travel to an Ebola-affected area in the 21 days before illness onset. No symptoms or risks identified at this time. Initial Sepsis Screen: Does the patient meet any 2 criteria? HR > 90 bpm. No. Patient's initial sepsis screen is negative. Does the patient have a suspected source of infection? No. Patient's initial sepsis screen is negative. Risk Assessment: Do you want to hurt yourself or someone else? Patient reports no desire to harm self or others. Onset of symptoms is unknown. 20:45 Method Of Arrival: Ambulatory ab2 20:45 Acuity: CINTIA 3 ab2 Triage Assessment: 20:50 General: Appears in no apparent distress. Behavior is calm, cooperative, appropriate ab2 for age. Pain: Complains of pain in mouth. Historical: - Allergies: 20:49 NKDA; ab2 - PMHx: 20:49 ADD/ADHD; COPD; Hepatitis; Hypertension; WPW; Cirrhosis of liver; ab2 - PSHx: 20:49 multiple orthopedic surgeries; ab2 - Immunization history:: Adult Immunizations up to date, Client reports receiving the 2nd dose of the Covid vaccine, Flu vaccine is up to date. - Social history:: Smoking status: Patient reports the use of cigarette tobacco products, smokes one-half pack cigarettes per day, Patient uses alcohol, on a daily basis. pint of whiskey or vodka daily. - Family history:: not pertinent. - Hospitalizations: : No recent hospitalization is reported. Screenin:03 Abuse screen: Denies threats or abuse. Denies injuries from another. Nutritional tk1 screening: No deficits noted. Tuberculosis screening: No symptoms or risk factors identified. Fall Risk None identified. Assessment: 21:03 Reassessment: See triage assessment. tk1 22:15 Reassessment: Rounding on patient, gauze to both sides of mouth saturated with blood. tk1 Patient wrote, " said 30 minutes and it's been one hour. It just want stop." Dr. Daniel updated. 22:23 Reassessment: Dr. Daniel to patient's room. tk1 23:17 Reassessment: Patient with scant amount of blood noted to gauze. tk1 10/27 00:30 Reassessment: D/C per MD order. Discharge instructions given to patient. Verbalized tk1 understanding. Vital Signs: 10/26 20:45 BP 136 / 90; Pulse 124; Resp 18 S; Temp 100.3; Pulse Ox 99% ; Weight 109.32 kg; Height ab2 5 ft. 10 in. (177.80 cm); Pain 8/10; 22:23 BP 139 / 85 LA Sitting (auto/lg); Pulse 112 MON; Resp 20 S; Temp 99.9(T); Pulse Ox 99% tk1 on R/A; Pain 6/10; 10/27 00:30 BP 129 / 88 LA Sitting (auto/lg); Pulse 103 MON; Resp 20 S; Temp 98.9(T); Pulse Ox 100% tk1 on R/A; Pain 4/10; 10/26 20:45 Body Mass Index 34.58 (109.32 kg, 177.80 cm) ab2 ED Course: 10/26 20:42 Patient arrived in ED. wm 20:48 Triage completed. ab2 20:50 Arm band placed on right wrist. ab2 20:56 Anthony Andersen MD is Attending Physician. rn 21:02 Sherie Saucedo is Primary Nurse. tk1 21:03 Patient has correct armband on for positive identification. Bed in low position. Call tk1 light in reach. 21:03 No provider procedures requiring assistance completed. Patient did not have IV access tk1 during this emergency room visit. 22:26 Protime (+inr) Sent. tk1 22:26 Ptt, Activated Sent. tk1 22:26 Basic Metabolic Panel Sent. tk1 23:21 Basic Metabolic Panel Sent. tk1 23:21 CBC with Diff Sent. tk1 Administered Medications: No medications were administered Outcome: 03 00:18 Discharge ordered by . rn 00:30 Discharged to home ambulatory. tk1 00:30 Condition: stable 00:30 Discharge instructions given to patient, Instructed on discharge instructions, follow up and referral plans. Demonstrated understanding of instructions, follow-up care, medications, wound care. 00:32 Patient left the ED. tk1 Signatures: Anthony Andersen MD MD rn Marsh, Wendy wm Kirby, Tammie tk1 [place] ab2 Corrections: (The following items were deleted from the chart) 10/26 22:23 20:15 Reassessment: Rounding on patient, gauze to both sides of mouth saturated with tk1 blood. Patient wrote, " said 30 minutes and it's been one hour. It just want stop." Dr. Daniel updated. tk1 22:24 20:15 Reassessment: Dr. Daniel to patient's room. tk1 tk1
[2021-10-27 00:23] LABS: Blood Morphology Comment NOT SEEN (NOT SEEN); Platelet Estimate DECR
[2021-10-27 01:42] VITALS: BP 129/88; TEMP 98.9; O2SAT 100
== END 2021-10-27 00:32 | disposition home or self-care (01) ==
LOC: ER 20:38
DX: K91.840 Postprocedural hemorrhage of a digestive system organ or structure following a digestive system procedure (principal)
CPT/HCPCS: 36415; 80048; 85025; 85610; 85730; 99283

== ENCOUNTER 2021-11-12 07:27 | Emergency (ER) | payer OTHER ==
--- OUTSIDE RECORDS SUMMARY | 2021-11-12 07:32 | XMS REPORT | Continuity of Care Document ---
:1975 Author Organization [facility] t Address [facility] [place] [address] Care Team Providers Name Role Phone FOUND, NOT Primary Care Physician Unavailable Niko Attending Clinician Unavailable Dilip Gonzalez Attending Clinician Jackie BURGESS Attending Clinician Soham BURGESS Attending Clinician SOHAM Attending Clinician Unavailable Deven BURGESS Attending Clinician Doctor Unassigned, Name Attending Clinician Unavailable Soham BURGESS Admitting Clinician SOHAM Admitting Clinician Unavailable Payers Payer Name Policy Type Policy Number Effective Date Expiration Date S ource Advance Directives Directive Decision Effective Date Termination Date Comments Sour ce Yes N/A [facility] Condition Condition Condition Status Onset Resolution Last Treating Co mments Source Name Details Category Date Date Treatment Clinician Date NSVT NSVT Disease Active Univers (nonsustai (nonsustai 3-11 it y of karla karla 00:00: [place] ventricula ventricula 00 Me dical r r Branch tachycardi tachycardi a) a) Obesity Obesity Disease Active Univers (BMI (BMI 3-10 ity of 30-39.9) 30-39.9) 00:00: [address] Cigarette Cigarette Disease Active Uni vers smoker smoker 3-10 ity of 00:: [address] Alcohol Alcohol Disease Active Univers use use 3-10 ity of 00:: [place] [address] [facility] [place] Primary Primary Disease Active Univers hypertensi hypertensi 3-10 it y of on on 00:00: [place] [facility] Branch Hypocalcem Hypocalcem Disease Active U nivers ia ia 3-10 ity of :: [place] [address] [facility] [place] Chest pain Chest pain Disease Active U nivers in adult in adult 3-09 ity of 00:: [address] Problem Condition [facility] Allergies, Adverse Reactions, Alerts Allergy Allergy Status Severity Reaction(s) Onset Inactive Treating Comm ents Source Name Type Date Date Clinician Elana Adverse Active severe [facility] Reaction fatigue [facility] NO KNOWN Drug Active Univers ALLERGIE Class ity of S [facility] Social History Social Habit Start Date Stop Date Quantity Comments Source Exposure to Not sure [facility] SARS-CoV-2 [facility] (event) [place] Alcohol intake 2021-11-03 2021-11-03 Current drinker Unive rsity of 00:00:00 00:00:00 of alcohol [facility] (finding) [place] Tobacco use and 2021-11-02 2021-11-02 Never used Universit y of exposure 00:00:00 00:00:00 [facility] Education 2021-11-02 2021-11-02 15 University of 00:00:00 00:00:00 [facility] Sex Ass[birth year] Universit y of 00:00:00 00:00:00 [facility] Smoking Status Start Date Stop Date Source Unknown if ever smoked [facility] Current every day smoker 2021-11-02 00:00:00 Uni versity of [facility] Medications Ordered Filled Start Stop Current Ordering Indication Dosage Frequency Signature Comments Components Source Medication Medication Date Date Medication? Clinician (SIG) Name Name oxazepam 2021- Yes 15mg [Order 1 Univ ers (SERAX) 11-04 Start] ity of capsule 15 18:09: 18:14 Name: Lashae mg 59 :00 oxazepam Medical (SERAX) Branch capsule 15 mg Signed Summary: 15 mg, Oral, Q8H TAPER, 3 doses, First dose on Sun11/04/21 at 1215, Last dose on 11/05/21 at 0415, Routine [Order 1 End] [Order 2 Start] Name: oxazepam (SERAX) capsule 15 mg Signed Summary: 15 mg, Oral, Q12H TAPER, 2 doses, First dose on 11/05/21 at 1615, Last dose on 11/06/21 at 0415, Routine [Order 2 End] thiamine Yes 100mg 100 mg, Unive rs (VITAMIN 3-11 Oral, ity of B1) tablet 15:00: DAILY, [place] 100 mg 00 First dose Medical on Sun Branch 11/04/21 at 0900, Until Discontinu ed, Routine ALBUTEROL 2021- No Inhale as Un bill INHALE 11-04 needed. ity of 11:05: 00:00 [place] 03 :00 Medical Branch foLIC acid 2021- No 1mg Take 1 mg U nivers 1 mg tablet 11-04 by mouth ity of 11:05: 00:00 daily. Pt [place] 03 :00 unsure of Medical dosage Branch morpHINE Yes 2mg 2 mg, Slow Uni vers injection 2 11 IV Push, ity of mg 02:40: Q4HPRN, [place] 45 Starting Medical on Thea Branch 11/03/21 at 2040, Until Discontinu ed, Routine, Pain (scale 7-10) spironolact 0 Yes 50mg 50 mg, Univ ers one 3-10 Oral, ity of (ALDACTONE) 19:00: DAILY, [place] tablet 50 00 First dose Medi dyana mg on Thea Branch 11/03/21 at 1300, Until Discontinu ed, Routine furosemide 0 Yes 20mg 20 mg, Unive rs (LASIX) 3-10 Slow IV ity of injection 19:00: Push, [place] 20 mg 00 DAILY, Medical First dose Branch on Thea 11/03/21 at 1300, Until Discontinu ed, Routine pantoprazol 0 Yes 40mg 40 mg, Univ ers e 3-10 Slow IV ity of (PROTONIX) 16:15: Push, [place] injection 00 Q12H, Medical 40 mg First dose Branch on Thea 11/03/21 at 1015, Until Discontinu ed busPIRone 2021-0 Yes 5mg 5 mg, Univers (BUSPAR) 3-10 Oral, ity of tablet 5 mg 16:11: TIDPRN, [place] 38 Starting Medical on Thea Branch 11/03/21 at 1011, Until Discontinu ed, Routine, anxiety traMADoL 2021-0 Yes 50mg 50 mg, Univers (ULTRAM) 3-10 Oral, ity of tablet 50 16:10: Q6HPRN, [place] mg 54 Starting Medical on [facility] Branch 11/03/21 at 1010, Until Discontinu ed, Routine, Pain (scale 4-6) oxazepam 2021-0 Yes 15mg 15 mg, Univers (SERAX) 3-10 Oral, ity of capsule 15 16:09: Q4HPRN, [place] mg 59 Starting Medical on [facility] Branch 11/03/21 at 1009, Until Discontinu ed, Routine, Only while awake for DBP equal to or greater than 100, HR equal to or greater than 100. foLIC acid 0 Yes 1mg 1 mg, Univer s (FOLATE) 3-10 Oral, ity of tablet 1 mg 15:00: DAILY, [place] 00 First dose Medical on [facility] Branch 11/03/21 at 0900, Until Discontinu ed, Routine calcium 2021-0 202- No 2g 2 g, IV Univer s gluconate 2 -10 03-10 Infusion, it y of g in NaCl 14:15: 16:06 ONCE, 1 [place] 100 mL 00 :00 dose, On Medical (ISO-OSM) [facility] Branch RTU IV 11/03/21 at infusion 2 0815, g Routine carvediloL 2021-0 Yes 3.125mg 3.125 mg, Univers (COREG) 3-10 Oral, BID ity of tablet 14:00: MEALS, [place] 3.125 mg 00 First dose Medic al on [facility] Branch 11/03/21 at 0800, Until Discontinu ed, Routine morpHINE 2021- No 2mg 2 mg, Slow Un bill injection 2 11-03-10 IV Push, ity of mg 10:45: 10:24 ONCE, 1 [place] 00 :00 dose, On Medical Thea Branch 11/03/21 at 0445, Routine ipratropium 0 Yes 3mL 3 mL, Unive rs -albuteroL 3-10 Inhalation ity of (DUONEB) 06:39: , Q6HPRN, [place] 0.5 mg-3 11 Starting Medical mg(2.5 mg on [facility] Branch base)/3 mL 11/03/21 at nebulizer 0039, solution 3 Until mL Discontinu ed, Routine, Wheezing, Shortness of Breath pantoprazol 2021- No 40mg 40 mg, Uni vers e 11-0310 Oral, BID, ity of (PROTONIX) 05:45: 16:11 First dose [place] EC tablet 00 :16 on Sun Medical 40 mg 11/02/21 at Branch 2345, Until Discontinu ed, Routine ondansetron Yes 4mg 4 mg, Slow Univers (ZOFRAN 3-10 IV Push, ity of (PF)) 05:34: Q6HPRN, [place] injection 4 14 Starting Medi dyana mg on Sun Branch 11/02/21 at 2334, Until Discontinu ed, Routine, Nausea and Vomiting (N/V) acetaminoph Yes 650mg 650 mg, Un bill en 3-10 Oral, ity of (TYLENOL) 05:34: Q6HPRN, [place] tablet 650 06 Starting Medic al mg on Sun Branch 11/02/21 at 2334, Until Discontinu ed, Routine, Pain (scale 1-3) morpHINE 2021- No 4mg 4 mg, Slow Un bill injection 4 11-03-10 IV Push, ity of mg 05:30: 04:35 ONCE, 1 [place] 00 :00 dose, On Medical Sun11/02/21 Branch at 2330, STAT magnesium 2021- No 2g 2 g, IV Univ ers sulfate in 11-03- Piggyback, it y of water 2 04:00: 04:17 Administer Paul as gram/50 mL 00 :00 over 60 Medica l (4 %) Minutes, Branch infusion 2 ONCE, 1 g dose, On Sun11/02/21 at 2200, Routine ondansetron 2021- No 4mg 4 mg, Slow Univers (ZOFRAN 11-03-10 IV Push, ity of (PF)) 03:30: 02:35 ONCE, 1 [place] injection 4 00 :00 dose, On Medi dyana mg Sun11/02/21 Branch at 2130, PHYLLIS FENTanyl PF 2021- No 100ug 100 mcg, Univers (SUBLIMAZE 11-03-10 Slow IV ity o f (PF)) 03:30: 02:35 Push, [place] injection 00 :00 ONCE, 1 Medical 100 mcg dose, On Branch Sun11/02/21 at 2130, STAT NaCl 0.9% 2021- No 1000mL at 999 Uni vers (NS) bolus 11-03 03-10 mL/hr, ity of infusion 02:15: 04:39 1,000 mL, Paul as 1,000 mL 00 :00 IV Medical Infusion, Branch ONCE, 1 dose, On Sun11/02/21 at 2015, PHYLLIS No known No Univers medications 3-09 ity of 19:02: [address] Omeprazole Omeprazole Yes Jennifer [address] 1-29 [place] 30 minutes [facility] - 00:00: before [facility] 00 morning l meal [facility] HydrOXYzine HydrOXYzine Yes Jennifer [address] HCl HCl 8-20 [place] as needed [facility] - 00:[facility]: [facility] 00 l Outpat[facility] ent Clinics Escitalopra Escitalopra Yes Jennifer [address] m Oxalate m Oxalate 7-15 [place] Luke [facility] - 00:00: [facility] 00 l [facility] Albuterol No 2 [facility] (Proair [...] ml as C HI St Sulfate Sulfate [place] needed [facility] Albuterol No 2 [facility] (Proair Hfa S - Inh) 8 [facility] Carvedilol No 25mg [facility] (Coreg) 25 S - Mg TAB [facility] Esomeprazol Esomeprazol Yes Jennifer TAKE [address] [facility] e Magnesium e Magnesium [place] CAPSULE BY [facility] EVERY DAY l Outpati ent Clinics Chlordiazep No 25mg [facility] oxide S - (Librium) [place] 25 Mg CAP [facility] Fluoxetine No 20mg [facility] Hcl S - (Prozac) 20 [place] Mg CAP [facility] Folic Acid No 1mg [facility] (Folvite) 1 S - Mg TAB [facility] Losartan No 50mg [facility] Potassium S - (Cozaar) 50 [facility] Mg TAB [facility] Omeprazole No 40mg [facility] (Prilosec) S - 40 Mg CPDR [facility] Thiamine No 100mg [facility] Hcl S - (Vitamin [place] B-1) 100 Mg Memoria TAB l Hospita l Symbicort Symbicort Yes Jennifer inhale [address] [facility] [place] puffs by [facility] twice l daily Outpati ent Clinics Viberzi Viberzi Yes Jennifer [address] [facility] [facility] [place] with food [facility] Proctofoam Proctofoam Yes Jennifer [address] [facility] HC [place] applicatio [facility] as [facility] needed l Outpati ent Clinics Gabapentin Gabapentin Yes Jennifer TAKE ONE [facility] [place] CAPSULE BY [facility] 3 [facility]oria TIMES A l DAY Outpati ent Clinics Losartan Losartan Yes Ejnnifer TAKE [address] [facility] [facility] Potassium Potassium [place] TABLET BY [facility] EVERY DAY l Outpati ent Clinics Ventolin Ventolin Yes Jennifer [address] HFA HFA [place] inhaled [facility] - every 4-6 [facility] hours as l needed [facility] Chlordiazep Chlordiazep Yes Jennifer (Schedule [facility] oxide HCl oxide HCl [place] IV Drug) [facility] - TK 1 C PO [facility]oria TID l [facility] Nicotine Nicotine Yes Jennifer [address] [facility] [place] skin [facility] Carvedilol Carvedilol Yes Jennifer 1 tab(s) [address] [facility] [facility] [place] times a [facility] - day orally [facility]oria l [facility] Immunizations Ordered Filled Immunization Date Status Comments [facility] e Immunization Name Name SARS-COV-2 COVID-19 2021-07-15 Completed Unive rsity of PFIZER VACCINE 00:00:00 [facility] [place] [facility] SARS-COV-2 COVID-19 2021-07-15 Completed Unive rsity of PFIZER VACCINE 00:00:00 [facility] [place] [facility] Influenza Virus 2021-05-06 Completed Universit y of Vaccine 00:00:00 [facility] Influenza Virus 2021-05-06 Completed Universit y of Vaccine 00:00:00 [facility] SARS-COV-2 COVID-19 2021-04-11 Completed Unive rsity of PFIZER VACCINE 00:00:00 [facility] [place] [facility] SARS-COV-2 COVID-19 2021-04-11 Completed Unive rsity of PFIZER VACCINE 00:00:00 [facility] [place] [facility] SARS-COV-2 COVID-19 2021-03-21 Completed Unive rsity of PFIZER VACCINE 00:00:00 [facility] [place] [facility] SARS-COV-2 COVID-19 2021-03-21 Completed Unive rsity of PFIZER VACCINE 00:00:00 [facility] [place] [facility] Influenza Virus 2019-07-02 Completed Universit y of Vaccine Quad .5 mL 00:00:00 [facility] 6+ MO Branch Vital Signs Vital Name Observation Time Observation Value Comments Source Systolic blood 2021-11-04 14:13:00 121 mm[Hg] Univer sity of pressure [facility] Diastolic blood 2021-11-04 14:13:00 71 mm[Hg] Unive rsity of pressure [facility] Heart rate 2021-11-04 14:13:00 77 /min Universi ty of [facility] Body temperature 2021-11-04 14:13:00 36.67 Rafaela [facility] Respiratory rate 2021-11-04 14:13:00 16 /min [facility] Oxygen saturation in 2021-11-04 14:13:00 99 /min [facility] Arterial blood by [facility] [place] [facility] Pulse oximetry [place] Body height 2021-11-03 17:55:00 177.8 cm [facility] acute hospital Body weight 2021-11-03 17:55:00 117.935 kg [facility] acute hospital BMI 2021-11-03 17:55:00 37.31 kg/m2 [facility] acute hospital Heart Rate 2020-04-01 05:01:00 75 /min [facility] Respiratory rate 2020-04-01 05:01:00 16 /min [facility] BP Systolic 2020-04-01 05:01:00 102 mm[Hg] [facility] BP Diastolic 2020-04-01 05:01:00 59 mm[Hg] [facility] Heart Rate 2020-04-01 04:21:00 75 /min [facility] Respiratory rate 2020-04-01 04:21:00 16 /min [facility] BP Systolic 2020-04-01 04:21:00 102 mm[Hg] [facility] BP Diastolic 2020-04-01 04:21:00 59 mm[Hg] [facility] Procedures Procedure Date / Time Performing Clinician Source Performed COMP. METABOLIC PANEL 2021-11-04 10:49:00 Saravanan Leong [facility] ([id number]) [facility] CBC WITH DIFF 2021-11-04 10:49:00 Saravanan Leong o f [facility] US ABDOMEN LIMITED 2021-11-03 19:51:[address] [facility] TRANSTHORACIC ECHO (TTE) 2021-11-03 17:55:20 Radu Mejia [facility] [place] HB ECG ROUTINE & RHYTHM 2021-11-03 16:49:46 Aniket Cardoza [facility] VITAMIN D, 25-OH 2021-11-03 16:21:00 Saravanan Leong [facility] VITAMIN B12, LEVEL 2021-11-03 16:20:[address] [facility] TROPONIN I 2021-11-03 16:20:00 Jackie [facility] MAGNESIUM 2021-11-03 10:32:00 Jackie [facility] FERRITIN SERUM 2021-11-03 10:32:[address] [facility] TROPONIN I 2021-11-03 10:32:00 Jackie [facility] HEPATIC FUNCTION PANEL 2021-11-03 10:32:00 [id number] (ALB,T.PRO,BILI Medical Branch T,BU/BC,ALT,AST,ALK PHOS) BASIC METABOLIC PANEL 2021-11-03 10:32:00 [facility] (NA, K, CL, CO2, GLUCOSE, Medica l Branch BUN, CREATININE, CA) LIPID PANEL ([id number])(TOTAL 2021-11-03 10:32:00 Jackie [facility] CHOLESTEROL, [facility] TRIGLYCERIDES, HDL) DIFF CONSULT 2021-11-03 10:32:00 Soham [facility] CBC WITH DIFF 2021-11-03 10:32:00 [facility] RETICULOCYTES AUTOMATED 2021-11-03 10:32:00 [facility] (LAB 2021-11-03 03:54:00 Ginette Stafford [facility] ONLY) [facility] COVID-19 (ID NOW RAPID 2021-11-03 03:32:00 Ginette Stafford [facility] TESTING) Medical Branch LAB ONLY COVID 2021-11-03 03:32:00 Ginette Stafford [facility] URINALYSIS 2021-11-03 02:46:00 Ginette Stafford [facility] AMMONIA, PLASMA 2021-11-03 02:38:00 Ginette Stafford [facility] CBC WITH DIFF 2021-11-03 02:36:00 Ginette Stafford [facility] GLYCOSYLATED HEMOGLOBIN 2021-11-03 02:36:00 Jackie [facility] (A1C) Medical Branch CT ABDOMEN PELVIS WO 2021-11-03 02:29:36 Ginette Stafford [facility] CONTRAST Medical Branch LIPASE 2021-11-03 02:01:00 Ginette Stafford [facility] MAGNESIUM 2021-11-03 02:01:00 Ginette Stafford [facility] TROPONIN I 2021-11-03 02:01:00 Ginette Stafford [facility] THYROID STIMULATING 2021-11-03 02:01:00 Radu Mejia [facility] HORMONE Medical Branch COMP. METABOLIC PANEL 2021-11-03 02:01:00 Ginette Stafford [facility] ([id number]) Medical [place] IRON PANEL 2021-11-03 02:01:00 Saravanan Leong [facility] PROTHROMBIN TIME / INR 2021-11-03 02:01:00 Ginette Stafford [facility] ACTIVATED PARTIAL 2021-11-03 02:01:[address] [facility] THRMPLAS MICKEY [facility] N-TERMINAL PRO-BNP 2021-11-03 02:01:[address] [facility] LACTIC ACID WHOLE BLOOD 2021-11-03 02:01:00 Ginette Stafford [facility] HB ABO GROUPING 2021-11-03 01:05:00 Ginette Stafford [facility] EKG-12 LEAD 2021-11-03 00:46:43 Jackie [facility] NOTICE OF PRIVACY 2021-11-03 00:34:04 Doctor Cassandra, [facility] PRACTICES [facility] CONSENT/REFUSAL FOR 2021-11-03 00:33:53 Doctor Cassandra, [facility] DIAGNOSIS AND TREATMENT [facility] [place] Computed tomography of 2020-03-31 00:00:00 [facility] abdomen and pelvis without contrast Plan of Care Planned Activity Planned Date Details Comments Source Goal Patient referral [code = [facility] [id number] ] [facility] (DC[facility] al Encounters Start End Encounter Admission Attending Care Care Encounter Source Date/Time Date/Time Type Type Clinicians Facility Department ID 2021-09-21 Outpatient Niko [facility] [id number] 11:30:08 Jennifer [id number] [facility] 2020-03-31 Inpatient JAMESON LON [id number] [facility] 23:29:00 [id number] [facility] 2021-11-02 2021-11-04 [facility] [id number] Univers 18:50:00 10:45:00 Encounter Radu Mejia [id number] ity of Saravanan Leong 4.2.7.2.686 [facility] [id number] [facility] 081 Branch 2021-11-02 2021-11-04 Inpatient X SOHAM [facility] [id number] Univers 18:50:00 10:45:00 SARAVANAN ity [facility] 2021-11-04 2021-11-04 Telephone [facility] [id number] Univers 00:00:00 00:00:00 Angel COLEMAN [id number] ity [facility] [id number] [place] PROF[place] [id number] [place] [id number] Branch [facility] 2021-11-02 2021-11-02 Orders Doctor SUKHI [id number] Univers 00:00:00 00:00:00 Only Unassigned, MARQUES [id number] ity of [place] [facility] 4.2.7.2.[id number] [facility] 009 Branch 2021-04-13 2021-04-13 [id number]00 [facility] Clinics 2020-03-31 2020-04-01 Departed GAYLA Ni [id number] [facility] 23:29:00 04:32:[address] 2020-03-31 2020-04-01 Departed GAYLA Ni [id number] [facility] 23:29:00 04:32:[address] 2020-03-05 2020-03-05 [facility] [id number] 08:20:00 08:20:00 t [facility] Medicine Outpati ent Clinics 2019-09-24 2019-09-24 [facility] [id number] 19:14:00 19:14:00 t [facility] Medicine Outpati ent Clinics 2019-04-15 2019-04-15 [facility] [id number] 08:40:00 08:40:00 [facility] Medicine Outpati ent Clinics 2019-03-10 2019-03-10 [facility] [id number] 14:40:00 14:40:00 [facility] Medicine Outpati ent Clinics 2019-02-26 2019-02-26 [facility] [id number] 09:40:00 09:40:00 t [facility] Medicine Outpati ent Clinics 2019-02-24 2019-02-24 [facility] [id number] 14:16:00 14:16:00 [facility] Medicine Outpati ent Clinics 2018-11-14 2018-11-14 [facility] [id number] 13:30:00 13:30:00 [facility] Outpati ent Clinics Results Test Description Test Test Results Result Source Time Comments Comments DIFF CONSULT 2021-10- ABSOLUTE MONOCYTOSIS Un iversity of INTERPRETATION 11 AND MILD NEUTROPENIA [facility] 15:59:50 MILD MACROCYTIC Branch NORMOCHROMIC ANEMIA THROMBOCYTOPENIA CBC WITH DIFF 2021-11-04 13:13:21 Test Item Value Reference Range Interpretation Comme nts WBC (test code = 6690-2) See_Comment [A utomated message] The system which ge nerated this result transmit jocelyn reference range: 4.20 - 1 0.70 10*3/?L. The reference r raul was not used to interpr et this result as normal/abnor mal. RBC (test code = 789-8) See_Comment L [Au tomated message] The system which ge nerated this result transmit jocelyn reference range: 4.26 - 5 .52 10*6/?L. The reference r raul was not used to interpr et this result as normal/abnor mal. HGB (test code = 718-7) 11.1 g/dL 12.2-16.4 L HCT (test code = 4544-3) 33.0 % 38.4-49.3 L MCV (test code = 787-2) 102.8 fL 81.7-95.6 H MCH (test code = 785-6) 34.6 pg 26.1-32.7 H MCHC (test code = 786-4) 33.6 g/dL 31.2-35.0 RDW-SD (test code = 62896-1) 57.4 fL 38.5-51.6 H RDW-CV (test code = 788-0) 15.1 % 12.1-15.4 PLT (test code = 777-3) See_Comment L [Au tomated message] The system which ge nerated this result transmit jocelyn reference range: 150 - 32 8 10*3/?L. The reference range was not used to interpret th is result as normal/abnormal . MPV (test code = 67167-1) 11.0 fL 9.8-13.0 IPF % (test code = 3.0 % 1.2-10.7 Platelet count measured by [id number]) fluorescence me thod. NRBC/100 WBC (test code = See_Comment [ Automated message] The [id number]) system which ge nerated this result transmit jocelyn reference range: 0.0 - 10 .0 /100 WBCs. The reference r raul was not used to interpr et this result as normal/abnor mal. NRBC x10^3 (test code = <0.01 See_Comment [Au tomated message] The [id number]) system which ge nerated this result transmit jocelyn reference range: 10*3/?L. The reference range was not u sed to interpret this result as normal/abnormal . GRAN MAT (NEUT) % (test code 47.6 % = 770-8) IMM GRAN % (test code = 0.90 % [id number]) LYMPH % (test code = 736-9) 25.3 % MONO % (test code = 5905-5) 20.5 % EOS % (test code = 713-8) 4.6 % BASO % (test code = 706-2) 1.1 % GRAN MAT x10^3(ANC) (test 2.09 10*3/uL 1.99-6.95 code = 4154768386) IMM GRAN x10^3 (test code = 0.04 10*3/uL 0.00-0.06 0370869486) LYMPH x10^3 (test code = 1.11 10*3/uL 1.09-3.23 731-0) MONO x10^3 (test code = 0.90 10*3/uL 0.36-1.02 742-7) EOS x10^3 (test code = 0.20 10*3/uL 0.06-0.53 711-2) BASO x10^3 (test code = 0.05 10*3/uL 0.01-0.09 704-7) PLT ESTIMATE (test code = Decreased Normal A 9317-9) Lab Interpretation (test Abnormal code = 17944-9) [facility]. METABOLIC PANEL ([id number])2021-11-04 11:29:59 Test Item Value Reference Range Interpretation Comments NA (test code = 132 mmol/L 135-145 L [id number]) K (test code = 4.2 mmol/L 3.5-5.0 2654436446) CL (test code = 103 mmol/L 98-108 3264223240) CO2 TOTAL (test code = 24 mmol/L 23-31 3768791351) AGAP (test code = 2-16 9253154602) BUN (test code = 14 mg/dL 7-23 8877873243) GLUCOSE (test code = 132 mg/dL 70-110 H 2933133853) CREATININE (test code = 0.80 mg/dL 0.60-1.25 0642309686) TOTAL BILI (test code = 9.1 mg/dL 0.1-1.1 H 0808750750) CALCIUM (test code = 7.6 mg/dL 8.6-10.6 L 6622230112) T PROTEIN (test code = 7.0 g/dL 6.3-8.2 5598382524) ALBUMIN (test code = 3.0 g/dL 3.5-5.0 L 2574998414) ALK PHOS (test code = 212 U/L 34-122 H 0166640029) ALTv (test code = 35 U/L 5-50 1742-6) AST(SGOT) (test code = 127 U/L 13-40 H 1565869056) eGFR (test code = mL/min/1.73m2 4882156608) ROBERT (test code = ROBERT) Association of Glomerular Filtration Rate (GFR) and Staging of Kidney Disease* + --+ --+ ------+| GFR (mL/min/1.73 m2) ?| With Kidney Damage ?| ?Without Kidney Damage+ --------+ --------+ +| ?>90 ?| ?Stage one ?| ? Normal ?+ ---+ ---+ -------+| ?60-89 ?| ?Stage two ?| ? Decreased GFR ? + --+ --+ ------+| ?30-59 ?| ?Stage three ?| ? Stage three ? + --+ --+ ------+| ?15-29 ?| ?Stage four ? | ? Stage four ?+ ---+ ---+ -------+| ?<15 (or dialysis) ? ?| ?Stage five ? | ? Stage five ?+ ---+ ---+ -------+ *Each stage assumes the associated GFR level has been in effect for at least three months. ?Stages 1 to 5, with or without kidney disease, indicate chronic kidney disease. Notes: Determination of stages one and two (with eGFR >59mL/min/1.73 m2) requires estimation of kidney damage for at least three months as defined by structural or functional abnormalities of the kidney, manifested by either:Pathological abnormalities or Markers of kidney damage (including abnormalities in the composition of the blood or urine or abnormalities in imaging tests). Lab Interpretation Abnormal (test code = 83135-9) [facility]2021-11-04 02:23:56 Test Item Value Reference Range Interpretation Comments LVIDD (test code = 5.40 cm 8311075464) IVS (test code = 1.19 cm 1137382353) Interventricular Septum 1.19 cm Diastolic Thickness by 2D (test code = 4404205) LVPWD (test code = 1.19 cm 5849682877) PW (test code = 1.19 cm 0.6-1.0 6939236741) EF(Teich) (test code = 67.60 % 8495658577) LVIDS (test code = 3.40 cm 9603566612) FS (test code = 38 % 3382323212) EF - 2D (test code = 67.60 % 26316338) LVOT diameter (test code 2.17 cm = 5255772901) ACS (test code = 2.07 cm 7902268865) Ao root annulus (test 3.8 cm code = 1390106814) Ao root diam (test code 3.80 cm = 8195066341) Aortic root (test code = 3.8 cm 9639623700) LA size (test code = 4.5 cm 3058905088) E wave decelartion time 0.26 s (test code = 9088776827) MV Peak E Kenroy (test code 135.2 cm/s = 0298753981) MV Peak A Kenroy (test code 110.5 cm/s = 1108957067) E/A ratio (test code = ratio 8464213380) MV Prop V (test code = 90.60 cm/s 1276543838) Tapse (test code = 3.3 cm 6784269584) TR Peak Kenroy (test code = 258.1 cm/s 9311561482) Triscuspid Valve mmHg Regurgitation Peak Gradient (test code = 2786985698) LVOT stroke volume (test 113.50 cm3 code = 8958397608) LVOT peak kenroy (test code 142.3 cm/s = 0636826465) LVOT mn grad (test code mmHg = 1279545768) AV LVOT peak gradient mmHg (test code = 2610469325) LVOT peak VTI (test code 30.7 cm = 3561784621) LV V1 mean (test code = 84.10 cm/s 6732542475) Aortic valve mean 157.5 cm/s velocity (test code = 9778461672) Ao peak kenroy (test code = 270.5 cm/s 8488256545) Ao VTI (test code = 53.0 cm 0211058180) AV area by cont VTI 2.1 cm2 (test code = 2666357400) AV area peak kenroy (test 2.0 cm2 code = 6417653790) Ao max PG (test code = 29.30 mm[Hg] 7891455329) AV peak gradient (test mmHg code = 3786801750) AV valve area (test code 2.14 cm2 = 9690852829) AV mean gradient (test mmHg code = 9686189934) Radiology Study observation (narrative) (test code = 91251-2) ROBERT (test code = ROBERT) ?Left?Ventricle: Left ventricle is normal in size and function. Mildly increased wall thickness. Normal systolic function with a visually estimated EF of 55 - 60%. Normal diastolic function. ?Right?Ventricle: Right ventricle is normal in size and function. ?Mitral?Valve: Mitral valve is grossly normal. ?Tricuspid?Valve: Tricuspid valve is grossly normal. Mild to moderate transvalvular regurgitation. Right ventricular systolic pressure is 25-30 mmHg. ?IVC/SVC: Estimated RA pressure 5 mmHG. ?Aorta: Mildly enlarged ascending aorta 3.6cm. Aorta is normal in size. ?Left?Atrium: Left atrium is mildly dilated. VitalsHeight Weight BSA (Calculated - sq m) BP Pulse 5' 10" (1.778 m) 260 lb (117.9 kg) 2.41 sq meters 143/77 83 [facility] B12, [id number] 00:14:00 Test Item Value Reference Range Interpretation Comments VIT B12 (test code = >1000 240-930 H 7676133034) ROBERT (test code = ROBERT) Biotin has been reported to cause a positive bias, interpret results relative to patient's use of biotin. Lab Interpretation (test Abnormal code = 43969-9) [facility] D, [id number] 23:23:53 Test Item Value Reference Range Interpretation Comments VIT D 25OH (test code = 29 ng/mL -80 36894-8) ROBERT (test code = ROBERT) Deficiency: <20 ng/mLInsufficiency : 20-24 ng/mLOptimal: 25-80 ng/mL Lab Interpretation (test Normal code = 29190-3) [facility] HospitalTroponin [id number] 17:34:35 Test Item Value Reference Interpretation Comments Range TROPONIN I (test <0.012 See_Comment [Automated code = 5231648988) message] The system which generated this result transmitted reference range : <=0.034 ng/mL. The reference range was not used to interpret this result as normal/abnormal . ROBERT (test code = Reference (Normal) ROBERT) Range (defined by the 99th percentile reference limit): <= 0.034 ng/mL Note: Cardiac troponin begins to rise 3-4 hours after the onset of ischemia. Repeat in 4-6 hours if the sample was drawn within 3-4 hours of the onset of the symptom and found normal. Diagnosis of myocardial injury is made with acute changes in cTn concentrations with at least one serial sample above the 99th percentile upper reference limit (URL), taken together with the patient's clinical presentation. Biotin has been reported to cause a negative bias, interpret results relative to patient's use of biotin. Lab Interpretation Normal (test code = 04972-1) [facility] HospitalFERRITIN [id number] 16:12:58 Test Item Value Reference Range Interpretation Comments FERRITIN (test code = 192.0 ng/mL 18.0-464.0 7984826022) ROBERT (test code = ROBERT) Biotin has been reported to cause a negative bias, interpret results relative to patient's use of biotin. Lab Interpretation (test Normal code = 17759-3) [facility] HospitalRETICULOCYTES [id number] 14:18:58 Test Item Value Reference Range Interpretation Comments RETIC Count Automated 4.12 % 0.59-2.24 H (test code = 4225925146) RETIC Absolute Count See_Comment H [Autom ated message] (test code = 8262058011) The system which generated this result transmitted ref erence range: 0.0260 - 0.1170 10*6/?L. The reference range was not used to int erpret this result as normal/abnormal . IRF % (test code = 18.40 % 2.00-19.10 0078311649) RETIC-HE (test code = 40.1 pg 27.3-36.4 H 6343731126) Lab Interpretation (test Abnormal code = 95268-1) [facility] HospitalIRON [id number] 14:18:38 Test Item Value Reference Range Interpretation Comments IRON (test code = 3881023052) 101 ug/dL 50-160 TIBC (test code = 2662984833) 224 ug/dL 250-410 L % FE SAT (test code = 7724991960) 45 % 20-50 Lab Interpretation (test code = Abnormal 93911-9) [facility] with [id number] 13:45:32 Test Item Value Reference Range Interpretation Comments WBC (test code = See_Comment [Automated 6690-2) message] The sy stem which generated this result transmitted reference range : 4.20 - 10.70 10*3/?L. The reference range was not used to interpret this result as normal/abnormal . RBC (test code = See_Comment L [Automated 789-8) message] The sy stem which generated this result transmitted reference range : 4.26 - 5.52 10*6/?L. The reference range was not used to interpret this result as normal/abnormal . HGB (test code = 10.5 g/dL 12.2-16.4 L 718-7) HCT (test code = 31.4 % 38.4-49.3 L 4544-3) MCV (test code = 102.6 fL 81.7-95.6 H 787-2) MCH (test code = 34.3 pg 26.1-32.7 H 785-6) MCHC (test code = 33.4 g/dL 31.2-35.0 786-4) RDW-SD (test code = 59.6 fL 38.5-51.6 H 58356-4) RDW-CV (test code = 15.9 % 12.1-15.4 H 788-0) PLT (test code = See_Comment L [Automated 777-3) message] The sy stem which generated this result transmitted reference range : 150 - 328 10*3/ ?L. The reference r raul was not used to interpret this result as normal/abnormal . MPV (test code = 10.8 fL 9.8-13.0 06921-1) IPF % (test code = 2.8 % 1.2-10.7 Platelet count 1225069550) measured by fluorescence method. NRBC/100 WBC (test See_Comment [Automat ed code = 4521969545) message] The system which generated this result transmitted reference range : 0.0 - 10.0 /100 WBCs. The refer ence range was not u sed to interpret th is result as normal/abnormal . NRBC x10^3 (test code <0.01 See_Comment [Auto mated = 5732085471) message] The s ystem which generated this result transmitted reference range : 10*3/?L. The reference range was not used to interpret this result as normal/abnormal . GRAN MAT (NEUT) % 36.7 % (test code = 770-8) IMM GRAN % (test code 0.80 % = 2374114756) LYMPH % (test code = 32.2 % 736-9) MONO % (test code = 24.5 % 5905-5) EOS % (test code = 4.7 % 713-8) BASO % (test code = 1.1 % 706-2) GRAN MAT x10^3(ANC) 1.95 10*3/uL 1.99-6.95 L (test code = 9605718061) IMM GRAN x10^3 (test 0.04 10*3/uL 0.00-0.06 code = 9306019633) LYMPH x10^3 (test code 1.71 10*3/uL 1.09-3.23 = 731-0) MONO x10^3 (test code 1.30 10*3/uL 0.36-1.02 H = 742-7) EOS x10^3 (test code = 0.25 10*3/uL 0.06-0.53 711-2) BASO x10^3 (test code 0.06 10*3/uL 0.01-0.09 = 704-7) PLT ESTIMATE (test Decreased Normal A code = 9317-9) Lab Interpretation Abnormal (test code = 42374-5) [facility] HospitalNori [id number] 13:38:14 Test Item Value Reference Interpretation Comments Range TROPONIN I (test 0.009 ng/mL See_Comment [Automated code = 7417218111) message] The system which generated this result transmitted reference range : <=0.034. The reference range was not used to interpret this result as normal/abnormal . ROBERT (test code = Reference (Normal) ROBERT) Range (defined by the 99th percentile reference limit): <= 0.034 ng/mL Note: Cardiac troponin begins to rise 3-4 hours after the onset of ischemia. Repeat in 4-6 hours if the sample was drawn within 3-4 hours of the onset of the symptom and found normal. Diagnosis of myocardial injury is made with acute changes in cTn concentrations with at least one serial sample above the 99th percentile upper reference limit (URL), taken together with the patient's clinical presentation. Biotin has been reported to cause a negative bias, interpret results relative to patient's use of biotin. Lab Interpretation Normal (test code = 97822-9) [facility] HospitalLipid Panel (Total Cholesterol, Triglycerides, HDL)2021-11-03 13:28:09 Test Item Value Reference Range Interpretation Comments CHOL (test code = 141 mg/dL 120-200 7025979391) HDL (test code = 17 mg/dL >40 L 4453520912) HDLC RATIO (test code = See_Comment H [Au tomated message] 1779268210) The system [employer] generated this result transmit jocelyn reference range : <=5.0. The refe rence range was not u sed to interpret th is result as normal/abnormal . TRIG (test code = 140 mg/dL 30-170 2890021108) LDL CHOL (test code = 96 mg/dL See_Comment [Auto mated message] 41377-1) The system [employer] generated this result transmit jocleyn reference range : <=160. The refe rence range was not u sed to interpret th is result as normal/abnormal . VLDL (test code = 28 mg/dL 5-60 4527534665) Lab Interpretation (test Abnormal code = 68985-6) [facility] HospitalBasi Metabolic Panel (NA, K, CL, CO2, GLUCOSE, BUN, CREATININE, CA)2021-11-03 13:27:49 Test Item Value Reference Range Interpretation Comments NA (test code = 136 mmol/L 135-145 9746256788) K (test code = 3.9 mmol/L 3.5-5.0 8365405420) CL (test code = 105 mmol/L 98-108 5277658033) CO2 TOTAL (test code = 22 mmol/L 23-31 L 4062988317) AGAP (test code = 2-16 4191400650) BUN (test code = 12 mg/dL 7-23 9329976345) GLUCOSE (test code = 87 mg/dL 70-110 3233562520) CREATININE (test code = 0.86 mg/dL 0.60-1.25 8755527057) CALCIUM (test code = 7.3 mg/dL 8.6-10.6 L 4450996994) eGFR (test code = mL/min/1.73m2 3222016041) ROBERT (test code = ROBERT) Association of Glomerular Filtration Rate (GFR) and Staging of Kidney Disease* + --+ --+ ------+| GFR (mL/min/1.73 m2) ?| With Kidney Damage ?| ?Without Kidney Damage+ --------+ --------+ +| ?>90 ?| ?Stage one ?| ? Normal ?+ ---+ ---+ -------+| ?60-89 ?| ?Stage two ?| ? Decreased GFR ? + --+ --+ ------+| ?30-59 ?| ?Stage three ?| ? Stage three ? + --+ --+ ------+| ?15-29 ?| ?Stage four ? | ? Stage four ?+ ---+ ---+ -------+| ?<15 (or dialysis) ? ?| ?Stage five ? | ? Stage five ?+ ---+ ---+ -------+ *Each stage assumes the associated GFR level has been in effect for at least three months. ?Stages 1 to 5, with or without kidney disease, indicate chronic kidney disease. Notes: Determination of stages one and two (with eGFR >59mL/min/1.73 m2) requires estimation of kidney damage for at least three months as defined by structural or functional abnormalities of the kidney, manifested by either:Pathological abnormalities or Markers of kidney damage (including abnormalities in the composition of the blood or urine or abnormalities in imaging tests). Lab Interpretation Abnormal (test code = 08649-9) [facility] [id number] 13:27:49 Test Item Value Reference Range Interpretation Comments MAGNESIUM (test code = 6857032885) 1.8 mg/dL 1.7-2.4 Lab Interpretation (test code = Normal 01888-3) [facility] HospitalHepatic Function Panel (ALB, T.PRO, BILI T, BU/BC, ALT, AST, ALK PHOS)2021-11-03 13:27:29 Test Item Value Reference Range Interpretation Comments TOTAL BILI (test code = 8981577443) 6.1 mg/dL 0.1-1.1 H BILI UNCON (test code = 4136782093) 2.0 mg/dL 0.1-1.1 H BILI CONJ (test code = 7668425270) 1.8 mg/dL 0.0-0.3 H T PROTEIN (test code = 7918646308) 6.7 g/dL 6.3-8.2 ALBUMIN (test code = 2033677853) 2.9 g/dL 3.5-5.0 L ALK PHOS (test code = 2367745881) 251 U/L 34-122 H ALTv (test code = 1742-6) 34 U/L 5-50 AST(SGOT) (test code = 1279662576) 128 U/L 13-40 H Lab Interpretation (test code = Abnormal 26866-2) [facility] HospitalThyroid Stimulating Hormone (TSH)2021-11-03 06:40:17 Test Item Value Reference Range Interpretation Comments TSH (test code = See_Comment [Automated message] 8289524387) The system [employer] generated this result transmitted ref erence range: 0.45 - 4 .70 mIU/L. The refe rence range was not u sed to interpret this result as normal/abnor mal. Lab Interpretation (test Normal code = 50244-3) [facility] HospitalGlycosylated Hemoglobin (A1C)2021-11-03 06:05:58 Test Item Value Reference Range Interpretation Comments HGB A1C (test code = 4.2 % 4.0-5.7 4548-4) ROBERT (test code = ROBERT) Reference RangesNormal: <5.7%Prediabetes: 5.7 - 6.4%Diabetes: > 6.5% Lab Interpretation (test Normal code = 02957-9) [facility] HospitalABORH Confirmation (Lab Only)2021-11-03 04:17:48 Test Item Value Reference Range Interpretation Comments ABO & RH (test AB Positive Performed at [facility] code = 20) Laboratory Serv [facility] Blood Bank[address] [place], [place] [address]Toll Free: [phone] A No. [id number] [facility] HospitalType and Screen - ONCE [id number] 03:43:43 Test Item Value Reference Range Interpretation Comments ABO & RH (test AB Positive Performed at [facility] code = 20) Laboratory [facility] Blood Bank[address] [place], [place] [address]Toll Free: [phone] A No. [id number] IAT (test code = Negative Performed a t [facility] 1185) Laboratory [facility] Blood Bank[address] [place], [place] [address]Toll Free: [phone] A No. [id number] [facility] HospitalAMMONIA, [id number] 02:55:08 Test Item Value Reference Range Interpretation Comments AMMONIA (test code = 2073833089) 9 umol/L 9-33 Lab Interpretation (test code = Normal 16868-2) [facility] WITH [id number] 02:46:44 Test Item Value Reference Range Interpretation Comments WBC (test code = See_Comment [Automated 6690-2) message] The sy stem which generated this result transmitted reference range : 4.20 - 10.70 10*3/?L. The reference range was not used to interpret this result as normal/abnormal . RBC (test code = See_Comment L [Automated 789-8) message] The sy stem which generated this result transmitted reference range : 4.26 - 5.52 10*6/?L. The reference range was not used to interpret this result as normal/abnormal . HGB (test code = 11.5 g/dL 12.2-16.4 L 718-7) HCT (test code = 33.6 % 38.4-49.3 L 4544-3) MCV (test code = 100.6 fL 81.7-95.6 H 787-2) MCH (test code = 34.4 pg 26.1-32.7 H 785-6) MCHC (test code = 34.2 g/dL 31.2-35.0 786-4) RDW-SD (test code = 58.3 fL 38.5-51.6 H 33376-8) RDW-CV (test code = 15.7 % 12.1-15.4 H 788-0) PLT (test code = See_Comment L [Automated 777-3) message] The sy stem which generated this result transmitted reference range : 150 - 328 10*3/ ?L. The reference r raul was not used to interpret this result as normal/abnormal . MPV (test code = 10.7 fL 9.8-13.0 97020-8) IPF % (test code = 1.9 % 1.2-10.7 Platelet count 2295489682) measured by fluorescence method. NRBC/100 WBC (test See_Comment [Automat ed code = 4624677615) message] The system which generated this result transmitted reference range : 0.0 - 10.0 /100 WBCs. The refer ence range was not u sed to interpret th is result as normal/abnormal . NRBC x10^3 (test code <0.01 See_Comment [Auto mated = 0085135975) message] The s ystem which generated this result transmitted reference range : 10*3/?L. The reference range was not used to interpret this result as normal/abnormal . GRAN MAT (NEUT) % 43.0 % (test code = 770-8) IMM GRAN % (test code 1.60 % = 7377767634) LYMPH % (test code = 27.8 % 736-9) MONO % (test code = 22.5 % 5905-5) EOS % (test code = 4.2 % 713-8) BASO % (test code = 0.9 % 706-2) GRAN MAT x10^3(ANC) 2.77 10*3/uL 1.99-6.95 (test code = 5168983676) IMM GRAN x10^3 (test 0.10 10*3/uL 0.00-0.06 H code = 3252671186) LYMPH x10^3 (test code 1.79 10*3/uL 1.09-3.23 = 731-0) MONO x10^3 (test code 1.45 10*3/uL 0.36-1.02 H = 742-7) EOS x10^3 (test code = 0.27 10*3/uL 0.06-0.53 711-2) BASO x10^3 (test code 0.06 10*3/uL 0.01-0.09 = 704-7) Lab Interpretation Abnormal (test code = 00425-6) [facility] HospitalTROPONIN [id number] 02:44:48 Test Item Value Reference Interpretation Comments Range TROPONIN I (test <0.012 See_Comment [Automated code = 5571965940) message] The system which generated this result transmitted reference range : <=0.034 ng/mL. The reference range was not used to interpret this result as normal/abnormal . ROBERT (test code = Reference (Normal) ROBERT) Range (defined by the 99th percentile reference limit): <= 0.034 ng/mL Note: Cardiac troponin begins to rise 3-4 hours after the onset of ischemia. Repeat in 4-6 hours if the sample was drawn within 3-4 hours of the onset of the symptom and found normal. Diagnosis of myocardial injury is made with acute changes in cTn concentrations with at least one serial sample above the 99th percentile upper reference limit (URL), taken together with the patient's clinical presentation. Biotin has been reported to cause a negative bias, interpret results relative to patient's use of biotin. Lab Interpretation Normal (test code = 68856-2) [facility] HospitalN-TERMINAL [id number] 02:41:26 Test Item Value Reference Range Interpretation Comments NT-proBNP (test code 111 pg/mL See_Comment [Autom ated = 9514011237) message] The system which generated this result transmitted reference range : <=125. The reference range was not used to interpret this result as normal/abnormal . ROBERT (test code = ROBERT) Biotin has been reported to cause a negative bias, interpret results relative to patient's use of biotin. Lab Interpretation Normal (test code = 26048-3) [facility] HospitalMAGNESIUM2022-03-10 02:33:06 Test Item Value Reference Range Interpretation Comments MAGNESIUM (test code = 4987850227) 1.5 mg/dL 1.7-2.4 L Lab Interpretation (test code = Abnormal 10935-2) [facility]. METABOLIC PANEL (43417)2021-11-03 02:32:26 Test Item Value Reference Range Interpretation Comments NA (test code = 136 mmol/L 135-145 9865830655) K (test code = 4.3 mmol/L 3.5-5.0 1956977238) CL (test code = 107 mmol/L 98-108 3660509274) CO2 TOTAL (test code = 17 mmol/L 23-31 L 1757308505) AGAP (test code = 2-16 9820195073) BUN (test code = 12 mg/dL 7-23 7642092817) GLUCOSE (test code = 97 mg/dL 70-110 3879581559) CREATININE (test code = 0.84 mg/dL 0.60-1.25 7766411519) TOTAL BILI (test code = 6.0 mg/dL 0.1-1.1 H 6431630495) CALCIUM (test code = 7.8 mg/dL 8.6-10.6 L 8178359520) T PROTEIN (test code = 7.2 g/dL 6.3-8.2 9970655295) ALBUMIN (test code = 3.1 g/dL 3.5-5.0 L 6322287479) ALK PHOS (test code = 337 U/L 34-122 H 0109533504) ALTv (test code = 40 U/L 5-50 1742-6) AST(SGOT) (test code = 136 U/L 13-40 H 3070264814) eGFR (test code = mL/min/1.73m2 2392155188) ROBERT (test code = ROBERT) Association of Glomerular Filtration Rate (GFR) and Staging of Kidney Disease* + --+ --+ ------+| GFR (mL/min/1.73 m2) ?| With Kidney Damage ?| ?Without Kidney Damage+ --------+ --------+ +| ?>90 ?| ?Stage one ?| ? Normal ?+ ---+ ---+ -------+| ?60-89 ?| ?Stage two ?| ? Decreased GFR ? + --+ --+ ------+| ?30-59 ?| ?Stage three ?| ? Stage three ? + --+ --+ ------+| ?15-29 ?| ?Stage four ? | ? Stage four ?+ ---+ ---+ -------+| ?<15 (or dialysis) ? ?| ?Stage five ? | ? Stage five ?+ ---+ ---+ -------+ *Each stage assumes the associated GFR level has been in effect for at least three months. ?Stages 1 to 5, with or without kidney disease, indicate chronic kidney disease. Notes: Determination of stages one and two (with eGFR >59mL/min/1.73 m2) requires estimation of kidney damage for at least three months as defined by structural or functional abnormalities of the kidney, manifested by either:Pathological abnormalities or Markers of kidney damage (including abnormalities in the composition of the blood or urine or abnormalities in imaging tests). Lab Interpretation Abnormal (test code = 00240-1) [facility] HospitalLIPASE2022-03-10 02:32:26 Test Item Value Reference Range Interpretation Comments LIPASE (test code = 9376334233) 247 U/L 0-220 H Lab Interpretation (test code = Abnormal 36172-7) [facility] HospitalACTIVATED PARTIAL THRMPLAS [id number] 02:24:21 Test Item Value Reference Range Interpretation Comments APTT Patient (test See_Comment [Automat ed code = 3173-2) message] The system which generated this result transmitted reference range : 23 - 38 Seconds . The reference range was not used to interpr et this result as normal/abnormal . ROBERT (test code = ROBERT) The [facility] patient population mean normal value for aPTT is 30 seconds. Lab Interpretation Normal (test code = 36960-5) [facility] HospitalPROTHROMBIN TIME / [id number] 02:22:20 Test Item Value Reference Range Interpretation Comments PROTIME PATIENT (test See_Comment H [Auto mated message] code = 5964-2) The system wh ich generated this result transmitted ref erence range: 12.0 - 1 4.7 Seconds. The reference range was not used to int erpret this result as normal/abnormal . INR (test code = 6301-6) Nor mal INR <1.1; Warfarin Therap eutic range 2.0 to 3. 0 or 2.5 to 3.5, dep ending upon the indica tions. Lab Interpretation (test Abnormal code = 42003-5) [facility] blood hemoglobin measurement (mass/volume)2020-04-01 00:15:00 Test Item Value Reference Range Interpretation Comments Bedside Hemoglobin (test code = 13.9 g/dL 13.0-17.5 64064-5) [facility]2020-04-01 00:15:00 Test Item Value Reference Range Interpretation Comments Bedside Hematocrit (test code = 41.0 % 40.0-53.0 36982-1) [facility] (moles/volume)2020-04-01 00:15:00 Test Item Value Reference Range Interpretation Comments Bedside Sodium (test code = 136 mmol/L 136-145 44257-0) [facility] potassium measurement (moles/volume)2020-04-01 00:15:00 Test Item Value Reference Range Interpretation Comments Bedside Potassium (test code = 3.8 mmol/L 3.5-5.1 36917-6) [facility] (moles/volume)2020-04-01 00:15:00 Test Item Value Reference Range Interpretation Comments Bedside Chloride (test code = 101 mmol/L 100-112 93131-9) [facility] total carbon dioxide measurement (moles/volume)2020-04-01 00:15:00 Test Item Value Reference Range Interpretation Comments Bedside Total CO2 (test code = 23.0 mmol/L 24.0-33.0 2026-) [facility] urea nitrogen (BUN) measurement (mass/volume) 2020-04-01 00:15:00 Test Item Value Reference Range Interpretation Comments Bedside Blood Urea Nitrogen (test 12 mg/dL 6-20 code = 71888-5) [facility] measurement (mass/volume)2020-04-01 00:15:00 Test Item Value Reference Range Interpretation Comments Bedside Creatinine (test code = 2.1 mg/dL 0.9-1.5 31142-8) [facility] glucose measurement (mass/volume)2020-04-01 00:15:00 Test Item Value Reference Range Interpretation Comments Bedside Glucose (test code = 99 mg/dL 60-100 22390-6) [facility] blood ionized calcium measurement (moles/volume)2020-04-01 00:15:00 Test Item Value Reference Range Interpretation Comments Bedside Whole Blood Ionized 0.99 mmol/L 1.12-1.32 Calcium (test code = 1994-3) [facility] [id number] 00:15:00 Test Item Value Reference Range Interpretation Comments Bedside Anion Gap (test code = 05329-3) 17 8-18 [facility] [id number] 00:15:00 Test Item Value Reference Range Interpretation Comments Estimat Glomerular Filtration Rate 37 73-125 (test code = 39577-8) [facility] whole blood sodium measurement (moles/volume)2020-04-01 00:15:00 Test Item Value Reference Range Interpretation Comments Bedside Sodium (test code = 136 mmol/L 58681-2) [facility] whole blood potassium measurement (moles/volume)2020-04-01 00:15:00 Test Item Value Reference Range Interpretation Comments Bedside Potassium (test code = 3.8 mmol/L 80829-8) [facility] whole blood chloride measurement (moles/volume)2020-04-01 00:15:00 Test Item Value Reference Range Interpretation Comments Bedside Chloride (test code = 101 mmol/L 39633-0) [facility] whole blood total carbon dioxide measurement (moles/volume)2020-04-01 00:15:00 Test Item Value Reference Range Interpretation Comments Bedside Total CO2 (test code = 23.0 mmol/L 7-1) [facility] whole blood urea nitrogen (BUN) measurement (mass/volume)2020-04-01 00:15:00 Test Item Value Reference Range Interpretation Comments Bedside Blood Urea Nitrogen (test 12 mg/dL code = 25714-8) [facility] creatinine measurement (mass/volume) 2020-04-01 00:15:00 Test Item Value Reference Range Interpretation Comments Bedside Creatinine (test code = 2.1 mg/dL 65201-3) [facility] whole blood glucose measurement (mass/volume)2020-04-01 00:15:00 Test Item Value Reference Range Interpretation Comments Bedside Glucose (test code = 99 mg/dL 68467-6) [facility] measurement (moles/volume)2020-04-01 00:15:00 Test Item Value Reference Range Interpretation Comments Bedside Whole Blood Ionized 0.99 mmol/L Calcium (test code = 1994-3) [facility] [id number] 00:15:00 Test Item Value Reference Range Interpretation Comments Bedside Anion Gap (test code = 59935-7) 17 [facility] [id number] 00:15:00 Test Item Value Reference Range Interpretation Comments Estimat Glomerular Filtration Rate 37 (test code = 30956-1) [facility] blood hemoglobin measurement (mass/volume)2020-04-01 00:15:00 Test Item Value Reference Range Interpretation Comments Bedside Hemoglobin (test code = 13.9 g/dL 46951-5) [facility] blood hematocrit (volume fraction) 2020-04-01 00:15:00 Test Item Value Reference Range Interpretation Comments Bedside Hematocrit (test code = 41.0 % 48049-3) [facility] blood lactic acid measurement (moles/volume)2020-04-01 00:10:00 Test Item Value Reference Range Interpretation Comments Bedside Lactic Acid Venous (test 1.74 mmol/L 0.50-2.20 code = 2519-7) [facility] blood lactic acid measurement (moles/volume)2020-04-01 00:10:00 Test Item Value Reference Range Interpretation Comments Bedside Lactic Acid Venous (test 1.74 mmol/L code = 2519-7) [facility] sodium [facility] (moles/volume)2020-03-31 11:50:00 Test Item Value Reference Range Interpretation Comments Sodium Level (test code = 2951-2) 135 mmol/L 136-145 [facility] or plasma potassium measurement (moles/volume)2020-03-31 11:50:00 Test Item Value Reference Range Interpretation Comments Potassium Level (test code = 3.7 mmol/L 3.5-5.1 2823-3) [facility] plasma chloride measurement (moles/volume)2020-03-31 11:50:00 Test Item Value Reference Range Interpretation Comments Chloride Level (test code = 102 mmol/L 98-107 5-0) [facility] or plasma total carbon dioxide measurement (moles/volume) 2020-03-31 11:50:00 Test Item Value Reference Range Interpretation Comments Carbon Dioxide Level (test code = 19 mmol/L -29 2027-9) [facility] or plasma anion gap determination (moles/volume)2020-03-31 11:50:00 Test Item Value Reference Range Interpretation Comments Anion Gap (test code = 71118-8) 18 -18 [facility] or plasma urea nitrogen measurement (mass/volume)2020-03-31 11:50:00 Test Item Value Reference Range Interpretation Comments Blood Urea Nitrogen (test code = 11 mg/dL 05-17 3094-0) [facility] or plasma creatinine measurement (mass/volume)2020-03-31 11:50:00 Test Item Value Reference Range Interpretation Comments Creatinine (test code = 2160-0) 1.8 mg/dL 0.7-1.3 [facility]GFR estimate [id number] 11:50:00 Test Item Value Reference Range Interpretation Comments Estimat Glomerular Filtration Rate 44 73-125 (test code = 06201-4) [facility] or plasma urea nitrogen/creatinine mass [id number] 11:50:00 Test Item Value Reference Range Interpretation Comments BUN/Creatinine Ratio (test code = 6 3097-3) [facility] or plasma glucose measurement (mass/volume)2020-03-31 11:50:00 Test Item Value Reference Range Interpretation Comments Glucose Level (test code = 2345-7) 98 mg/dL 60-100 [facility] HealthOsmolality of Serum or Plasma by [id number] 11:50:00 Test Item Value Reference Range Interpretation Comments Calculated Osmolality (test code 269 mosm/kg = 45872-7) [facility] or plasma calcium measurement (mass/volume)2020-03-31 11:50:00 Test Item Value Reference Range Interpretation Comments Calcium Level (test code = 74317-9) 7.8 mg/dL 8.4-10.2 [facility] or plasma total bilirubin measurement (mass/volume) 2020-03-31 11:50:00 Test Item Value Reference Range Interpretation Comments Total Bilirubin (test code = 0.8 mg/dL 0.2-1.2 1975-2) [facility] or plasma total combined glucuronidated [...] Range Interpretation Comments Globulin (test code = 61029-1) 3.5 g/dL [facility] HealthSerum or plasma albumin/globulin mass [id number] 11:50:00 Test Item Value Reference Range Interpretation [...] HealthAutomated erythrocyte mean corpuscular hemoglobin concentration measurement (mass/[id number] 11:50:00 Test Item Value Reference Range Interpretation Comments Mean Corpuscular Hemoglobin Concent 34.7 g/dL 33.0-37.0 (test code = 786-4) [facility] HealthAutomated erythrocyte distribution width [id number] 11:50:00 Test Item Value Reference Range Interpretation Comments Red Cell Distribution Width (test code 12.8 % 10.7-14.5 = 788-0) [facility] HealthAutomated blood platelet count (count/volume)2020-03-31 11:50:00 Test Item Value Reference Range Interpretation Comments Platelet Count (test code = 105 10*3/uL 150-450 777-3) [facility] HealthAutomated blood platelet mean volume etgpemjqjak0735-30-30 11:50:00 Test Item Value Reference Range Interpretation Comments Mean Platelet Volume (test code = 10.1 fL 5.7-10.7 45581-4) [facility] comment [id number] 11:50:00 Test Item Value Reference Range Interpretation Comments Manual Differential (test code = ----- 8265-1) [facility] HealthManual blood segmented neutrophils/100 [id number] 11:50:00 Test Item Value Reference Range Interpretation Comments Neutrophils % (Manual) (test code = 61 % 42-75 769-0) [facility] HealthManual blood lymphocytes/100 [id number] 11:50:00 Test Item Value Reference Range Interpretation Comments Lymphocytes % (Manual) (test code = 23 % 21-51 737-7) [facility] monocytes/100 [id number] 11:50:00 Test Item Value Reference Range Interpretation Comments Monocytes % (Manual) (test code = 14 % 1-9 744-3) [facility] HealthManual blood eosinophil count as percentage of total leukocytes 2020-03-31 11:50:00 Test Item Value Reference Range Interpretation Comments Eosinophils % (Manual) (test code = 2 % 0-7 714-6) [facility] HealthBlood platelet detection by light [id number] 11:50:00 Test Item Value Reference Range Interpretation Comments Platelet Estimate (test code = Decreased 9317-9) [facility] morphology finding [id number] 11:50:00 Test Item Value Reference Range Interpretation Comments Red Blood Cell Morphology (test code = Normal 6742-1) [facility] HealthSerum or plasma sodium measurement (moles/volume)2020-03-31 11:50:00 Test Item Value Reference Range Interpretation Comments Sodium Level (test code = 2951-2) 135 mmol/L [facility] or plasma potassium measurement (moles/volume)2020-03-31 11:50:00 Test Item Value Reference Range Interpretation Comments Potassium Level (test code = 3.7 mmol/L 2823-3) [facility] chloride measurement (moles/volume)2020-03-31 11:50:00 Test Item Value Reference Range Interpretation Comments Chloride Level (test code = 102 mmol/L 2074-0) [facility] total carbon dioxide measurement (moles/volume)2020-03-31 11:50:00 Test Item Value Reference Range Interpretation Comments Carbon Dioxide Level (test code = 19 mmol/L 2028-04) [facility] anion gap determination (moles/volume)2020-03-31 11:50:00 Test Item Value Reference Range Interpretation Comments Anion Gap (test code = 87367-9) 18 [facility] urea nitrogen measurement (mass/volume)2020-03-31 11:50:00 Test Item Value Reference Range Interpretation Comments Blood Urea Nitrogen (test code = 11 mg/dL 3094-0) [facility] or plasma creatinine measurement (mass/volume)2020-03-31 11:50:00 Test Item Value Reference Range Interpretation Comments Creatinine (test code = 2160-0) 1.8 mg/dL [facility] [id number] 11:50:00 Test Item Value Reference Range Interpretation Comments Estimat Glomerular Filtration Rate 44 (test code = 52309-5) [facility] urea nitrogen/creatinine mass [id number] 11:50:00 Test Item Value Reference Range Interpretation Comments BUN/Creatinine Ratio (test code = 6 3097-3) [facility] or plasma glucose measurement (mass/volume)2020-03-31 11:50:00 Test Item Value Reference Range Interpretation Comments Glucose Level (test code = 2345-7) 98 mg/dL [facility] CenterOsmolality of Serum or Plasma by calculation 2020-03-31 11:50:00 Test Item Value Reference Range Interpretation Comments Calculated Osmolality (test code 269 mosm/kg = 13748-7) [facility] or plasma calcium measurement (mass/volume)2020-03-31 11:50:00 Test Item Value Reference Range Interpretation Comments Calcium Level (test code = 98732-4) 7.8 mg/dL [facility] total bilirubin measurement (mass/volume)2020-03-31 11:50:00 Test Item Value Reference Range Interpretation Comments Total Bilirubin (test code = 0.8 mg/dL 1975-2) [facility] or plasma total combined glucuronidated bilirubin and albumin bound bilirubin measurement (mass/volume)2020-03-31 11:50:00 Test Item Value Reference Range Interpretation Comments Direct Bilirubin (test code = 0.4 mg/dL 1967-7) [facility] or plasma aspartate aminotransferase measurement (enzymatic activity/volume)2020-03-31 11:50:00 Test Item Value Reference Range Interpretation Comments Aspartate Amino Transf (AST/SGOT) 67 U/L (test code = 1920-8) [facility] or plasma alanine aminotransferase measurement (enzymatic activity/volume)2020-03-31 11:50:00 Test Item Value Reference Range Interpretation Comments Alanine Aminotransferase (ALT/SGPT) 42 U/L (test code = 1742-6) [facility] or plasma protein measurement (mass/volume)2020-03-31 11:50:00 Test Item Value Reference Range Interpretation Comments Total Protein (test code = 2885-2) 7.5 g/dL [facility] or plasma albumin measurement (mass/volume)2020-03-31 11:50:00 Test Item Value Reference Range Interpretation Comments Albumin (test code = 1751-7) 4.0 g/dL [facility] globulin measurement by calculation (mass/volume)2020-03-31 11:50:00 Test Item Value Reference Range Interpretation Comments Globulin (test code = 06942-0) 3.5 g/dL [facility] or plasma albumin/globulin mass ratio 2020-03-31 11:50:00 Test Item Value Reference Range Interpretation Comments Albumin/Globulin Ratio (test code = 1.1 1759-0) [facility] or plasma alkaline phosphatase measurement (enzymatic activity/volume)2020-03-31 11:50:00 Test Item Value Reference Range Interpretation Comments Alkaline Phosphatase (test code = 71 U/L 6768-6) [facility] or plasma lipase measurement (enzymatic activity/volume)2020-03-31 11:50:00 Test Item Value Reference Range Interpretation Comments Lipase (test code = 3040-3) 299 U/L [facility] Center[facility] leukocyte count (number/volume)2020-03-31 11:50:00 Test Item Value Reference Range Interpretation Comments White Blood Count (test code = 11.4 10*3/uL 6690-2) [facility] erythrocytes automated count (number/volume)2020-03-31 11:50:00 Test Item Value Reference Range Interpretation Comments Red Blood Count (test code = 4.25 10*6/uL 789-8) [facility] hemoglobin measurement (mass/volume) 2020-03-31 11:50:00 Test Item Value Reference Range Interpretation Comments Hemoglobin (test code = 718-7) 14.5 g/dL [facility] hemat[facility]volume fraction) 2020-03-31 11:50:00 Test Item Value Reference Range Interpretation Comments Hematocrit (test code = 4544-3) 41.8 % [facility] CenterAutomated erythrocyte mean corpuscular volume (MCV) [id number] 11:50:00 Test Item Value Reference Range Interpretation Comments Mean Corpuscular Volume (test code = 98.4 fL 787-2) [facility] CenterAutom[facility] erythrocyte mean corpuscular hemoglobin (mass per erythrocyte)2020-03-31 11:50:00 Test Item Value Reference Range Interpretation Comments Mean Corpuscular Hemoglobin (test 34.1 pg code = 785-6) [facility] CenterAutomated erythrocyte mean corpuscular hemoglobin concentration measurement (mass/prp2998-33-76 11:50:00 Test Item Value Reference Range Interpretation Comments Mean Corpuscular Hemoglobin Concent 34.7 g/dL (test code = 786-4) [facility] CenterAutom[facility] erythrocyte distribution width [id number] 11:50:00 Test Item Value Reference Range Interpretation Comments Red Cell Distribution Width (test code 12.8 % = 788-0) [facility] blood platelet count (count/volume) 2020-03-31 11:50:00 Test Item Value Reference Range Interpretation Comments Platelet Count (test code = 105 10*3/uL 777-3) [facility] CenterAutom[facility] blood platelet mean volume [id number] 11:50:00 Test Item Value Reference Range Interpretation Comments Mean Platelet Volume (test code = 10.1 fL 27707-1) [facility] [id number] 11:50:00 Test Item Value Reference Range Interpretation Comments Manual Differential (test code = ----- 8265-1) [facility] blood segmented neutrophils/100 [id number] 11:50:00 Test Item Value Reference Range Interpretation Comments Neutrophils % (Manual) (test code = 61 % 769-0) [facility] blood lymphocytes/100 leukocytes 2020-03-31 11:50:00 Test Item Value Reference Range Interpretation Comments Lymphocytes % (Manual) (test code = 23 % 737-7) [facility] blood monocytes/100 leukocytes 2020-03-31 11:50:00 Test Item Value Reference Range Interpretation Comments Monocytes % (Manual) (test code = 14 % 744-3) [facility] blood eosinophil count as percentage of total [id number] 11:50:00 Test Item Value Reference Range Interpretation Comments Eosinophils % (Manual) (test code = 2 % 714-6) [facility] platelet detection by light microscopy 2020-03-31 11:50:00 Test Item Value Reference Range Interpretation Comments Platelet Estimate (test code = Decreased 9317-9) [facility] erythrocyte morphology finding [id number] 11:50:00 Test Item Value Reference Range Interpretation Comments Red Blood Cell Morphology (test code = Normal 6742-1) [facility] protein measurement by automated test strip (mass/volume)2020-03-31 02:48:00 Test Item Value Reference Range Interpretation Comments Urine Protein (test code = 88825-1) 100 mg/dL Negative * [facility] glucose measurement by automated test strip (mass/volume) 2020-03-31 02:48:00 Test Item Value Reference Range Interpretation Comments Urine Glucose (UA) (test code Negative mg/dL Negative * = 61398-9) [facility] HealthUrine ketones measurement by automated test strip (mass/volume) 2020-03-31 02:48:00 Test Item Value Reference Range Interpretation Comments Urine Ketones (test code = 88839-7) 15 mg/dL Negative * [facility] HealthUrine erythrocytes count by automated test strip (number/volume) 2020-03-31 02:48:00 Test Item Value Reference Range Interpretation Comments Urine Occult Blood (test Negative {Butch}/uL Negative * code = 82312-4) [facility] HealthUrine nitrite detection by automated test [id number] 02:48:00 Test Item Value Reference Range Interpretation Comments Urine Nitrite (test code = 00791-9) Negative Negative [facility]Urine total bilirubin measurement by automated test strip (mass/volume)2020-03-31 02:48:00 Test Item Value Reference Range Interpretation Comments Urine Bilirubin (test code = 17477-3) 1 mg/dL Negative [facility] HealthConfirmatory urine bilirubin [id number] 02:48:00 Test Item Value Reference Range Interpretation Comments Urine Ictotest (test code = 10531-2) Positive Negative [facility] HealthUrine urobilinogen measurement by automated test strip (mass/volume)2020-03-31 02:48:00 Test Item Value Reference Range Interpretation Comments Urine Urobilinogen (test code = 4.0 mg/dL 0.0-1.0 37779-7) [facility] HealthUrine leukocytes count by automated test strip (number/volume) 2020-03-31 02:48:00 Test Item Value Reference Range Interpretation Comments Urine Leukocyte Esterase (test 25 {Zohaib}/uL Negative code = 11278-9) [facility] HealthMicroscopic examination of [id number] 02:48:00 Test Item Value Reference Range Interpretation Comments Microscopic Urinalysis (T) (test code = ----- 80145-0) [facility] HealthUrine sediment erythrocyte count by microscopy (number/high power field)2020-03-31 02:48:00 Test Item Value Reference Range Interpretation Comments Urine RBC (test code = None Seen /[HPF] 0-2 07236-9) [facility] HealthUrine sediment leukocyte count by microscopy [...] code = None Seen /[HPF] None * 03814-3) [facility] HealthAmorphous sediment detection in urine sediment by light [id number] 02:48:00 Test Item Value Reference Range Interpretation [...] (test 6-10 /[LPF] None * code = 34669-1) [facility] HealthYeast detection in urine sediment by light [id number] 02:48:00 Test Item Value Reference Range Interpretation Comments Urine Yeast (test code = None Seen /[HPF] None 34199-3) [facility] comment 02:48:00 Test Item Value Reference Range Interpretation Comments Urinalysis Comment (test * See_Comment [A utomated message] The code = 8262-8) system which generated this result tra nsmitted reference range : *. The reference range was not used to interpr et this result as normal/abnormal . [facility] comment [id number] 02:48:00 Test Item Value Reference Range Interpretation Comments Urine Culture Indicated (test code = Not Ind 8264-4) [facility] [id number] 02:48:00 Test Item Value Reference Range Interpretation Comments Urine Source (test code = 50566-0) URINE [facility] HealthUrine color [id number] 02:48:00 Test Item Value Reference Range Interpretation Comments Urine Color (test code = 5778-6) Yellow Yel-Dyan * [facility] HealthUrine clarity [id number] 02:48:00 Test Item Value Reference Range Interpretation Comments Urine Appearance (test code = 14746-2) Clear Clear * [facility] HealthUrine pH measurement by automated test [id number] 02:48:00 Test Item Value Reference Range Interpretation Comments Urine pH (test code = 47500-5) 5.0 5.0-8.0 [facility] HealthSpecific gravity of Urine by Automated test [id number] 02:48:00 Test Item Value Reference Range Interpretation Comments Urine Specific [place] (test code = 1.020 1.005-1.030 41177-2) [facility] HealthSpecific gravity of Urine by Automated test [id number] 02:48:00 Test Item Value Reference Range Interpretation Comments Urine Specific [place] (test code = 1.020 12915-2) [facility] protein measurement by automated test strip (mass/volume)2020-03-31 02:48:00 Test Item Value Reference Range Interpretation Comments Urine Protein (test code = 38243-9) 100 mg/dL [facility] glucose measurement by automated test strip (mass/volume)2020-03-31 02:48:00 Test Item Value Reference Range Interpretation Comments Urine Glucose (UA) (test code Negative mg/dL = 60009-0) [facility] ketones measurement by automated test strip (mass/volume)2020-03-31 02:48:00 Test Item Value Reference Range Interpretation Comments Urine Ketones (test code = 46478-5) 15 mg/dL [facility] erythrocytes count by automated test strip (number/volume)2020-03-31 02:48:00 Test Item Value Reference Range Interpretation Comments Urine Occult Blood (test Negative {Butch}/uL code = 63271-9) [facility] nitrite detection by automated test [id number] 02:48:00 Test Item Value Reference Range Interpretation Comments Urine Nitrite (test code = 75708-8) Negative [facility] total bilirubin measurement by automated test strip (mass/volume)2020-03-31 02:48:00 Test Item Value Reference Range Interpretation Comments Urine Bilirubin (test code = 02315-9) 1 mg/dL [facility] CenterConf[facility] bilirubin measurement 2020-03-31 02:48:00 Test Item Value Reference Range Interpretation Comments Urine Ictotest (test code = 31302-8) Positive [facility] urobilinogen measurement by automated test strip (mass/volume)2020-03-31 02:48:00 Test Item Value Reference Range Interpretation Comments Urine Urobilinogen (test code = 4.0 mg/dL 33787-9) [facility] leukocytes count by automated test strip (number/volume)2020-03-31 02:48:00 Test Item Value Reference Range Interpretation Comments Urine Leukocyte Esterase (test 25 {Zohaib}/uL code = 05561-0) [facility] [id number] 02:48:00 Test Item Value Reference Range Interpretation Comments Microscopic Urinalysis (T) (test code = ----- 89443-9) [facility] sediment erythrocyte count by microscopy (number/high power field)2020-03-31 02:48:00 Test Item Value Reference Range Interpretation Comments Urine RBC (test code = None Seen /[HPF] 63889-1) [facility] sediment leukocyte count by microscopy (number/high power field)2020-03-31 02:48:00 Test Item Value Reference Range Interpretation Comments Urine WBC (test code = 5821-4) 0-5 /[HPF] [facility] sediment epithelial cell count by microscopy (number/high power field)2020-03-31 02:48:00 Test Item Value Reference Range Interpretation Comments Urine Epithelial Cells (test code Few /[HPF] = 5787-7) [facility] sediment crystal count by microscopy (number/high power field)2020-03-31 02:48:00 Test Item Value Reference Range Interpretation Comments Urine Crystals (test code = None Seen /[HPF] 52697-2) [facility] sediment by light [id number] 02:48:00 Test Item Value Reference Range Interpretation Comments Urine Amorphous Sediment Moderate /[HPF] (test code = 8246-1) [facility] sediment bacteria count by microscopy (number/high power field)2020-03-31 02:48:00 Test Item Value Reference Range Interpretation Comments Urine Bacteria (test code = None Seen /[HPF] 5769-5) [facility] sediment casts count by microscopy (number/low power field)2020-03-31 02:48:00 Test Item Value Reference Range Interpretation Comments Urine Casts (test code = Present /[LPF] 9842-6) [facility] sediment hyaline cast count by microscopy (number/low power field)2020-03-31 02:48:00 Test Item Value Reference Range Interpretation Comments Urine Hyaline Casts (test code = 2-5 /[LPF] 5796-8) [facility] in [facility] sediment by microscopy (number/low power field )2020-03-31 02:48:00 Test Item Value Reference Range Interpretation Comments Urine Fine Granular Casts (test 6-10 /[LPF] code = 48523-7) [facility] sediment by light [id number] 02:48:00 Test Item Value Reference Range Interpretation Comments Urine Yeast (test code = None Seen /[HPF] 69198-5) [facility] comment 02:48:00 Test Item Value Reference Range Interpretation Comments Urinalysis Comment (test code = 8262-8) * [facility] comment 02:48:00 Test Item Value Reference Range Interpretation Comments Urine Culture Indicated (test code = Not Ind 8264-4) [facility] method 2020-03-31 02:48:00 Test Item Value Reference Range Interpretation Comments Urine Source (test code = 06317-9) URINE [facility] color [id number] 02:48:00 Test Item Value Reference Range Interpretation Comments Urine Color (test code = 5778-6) Yellow [facility] clarity [id number] 02:48:00 Test Item Value Reference Range Interpretation Comments Urine Appearance (test code = 41334-1) Clear [facility] pH measurement by automated test strip 2020-03-31 02:48:00 Test Item Value Reference Range Interpretation Comments Urine pH (test code = 35546-9) 5.0 [facility]
[2021-11-12 07:49] LABS: Absolute Lymphocytes (CBC) 1.6 K/uL (0.7-4.9); Lymphocytes % 41.8 % (15.3-44.8); MPV 8.1 fL (7.6-11.3); Protime INR 1.36; RBC Red Blood Cell Count 3.32 M/uL (4.33-5.43)
[2021-11-12 08:05] LABS: ALT/SGPT 44 U/L (12-78); AST/SGOT 119 U/L (15-37); Albumin 2.4 g/dL (3.4-5.0); Alkaline Phosphatase 277 U/L (45-117); BUN Blood Urea Nitrogen 6 mg/dL (7-18); Bicarbonate 20 mmol/L (21-32); Bilirubin Direct 3.5 mg/dL (0-0.2); Bilirubin Total 4.8 mg/dL (0.2-1.0); Glucose Level 108 mg/dL (74-106); NT PRO-BNP 114 pg/mL (<125); Potassium 3.6 mmol/L (3.5-5.1); Protein, Total 7.3 g/dL (6.4-8.2); Sodium Level 140 mmol/L (136-145)
[2021-11-12 08:46] LABS: Anisocytosis 1+; Blood Morphology Comment NOTED (NOT SEEN); Macrocytosis 1+; Platelet Estimate DECR; White Blood Cell Scan OK (OK)
--- NOTE | 2021-11-12 08:49 | RAD REPORT ---
EXAM DESCRIPTION: Garrett Single View11/12/2021 7:52 am CLINICAL HISTORY: Chest pain COMPARISON: 2020 FINDINGS: The lungs appear clear of acute infiltrate. The heart is normal size IMPRESSION: No acute abnormalities displayed
--- NOTE | 2021-11-12 08:50 | EDPHYS ---
Physician Documentation [facility] Name: Sung Brown Jr Age: 46 yrs Sex: Male : 1975 Arrival Date: 11/12/2021 Time: 07:31 Bed 20 Private MD: ED Physician Bessy Sarmiento HPI: 11/12 07:39 This 46 yrs old Male presents to ER via EMS with complaints of Chest Pain > 30 y/o. ma2 08:45 This 46 yrs old Male presents to ER via EMS with complaints of ruq abd pain > 30 y/o. ma2 07:39 Onset: gradually. ma2 08:46 46-year-old male with history of liver alcohol cirrhosis who presents with right upper ma2 quadrant abdominal pain, patient has been drinking alcohol heavily over the last few days he said he drinks half a gallon of vodka last night, patient also has generalized lower extremity edema has been chronic for few months. Patient has liver cirrhosis. Patient states he does not have chest pain his pain is on the right upper quadrant. Historical: - Allergies: 07:36 NKDA; vg1 - Home Meds: 07:36 Albuterol Inhl [Active]; omeprazole 40 mg Oral cpDR 1 cap once daily [Active]; vg1 Symbicort inhalation [Active]; - PMHx: 07:36 ADD/ADHD; cirrhosis of liver; COPD; Hepatitis; Hypertension; WPW; vg1 - PSHx: 07:36 multiple orthopedic surgeries; vg1 - Immunization history:: Client reports receiving the 2nd dose of the Covid vaccine. - Social history:: Smoking status: Patient reports the use of cigarette tobacco products, smokes one-half pack cigarettes per day. - Family history:: not pertinent. ROS: 08:46 Constitutional: Negative for fever, chills, and weight loss. ma2 08:46 All other systems are negative. Exam: 08:46 Constitutional: This is a well developed, well nourished patient who is awake, alert, ma2 and in no acute distress. Head/Face: Normocephalic, atraumatic. Eyes: Pupils equal round and reactive to light, extra-ocular motions intact. Lids and lashes normal. Conjunctiva and sclera are non-icteric and not injected. Cornea within normal limits. Periorbital areas with no swelling, redness, or edema. ENT: Nares patent. No nasal discharge, no septal abnormalities noted. Tympanic membranes are normal and external auditory canals are clear. Oropharynx with no redness, swelling, or masses, exudates, or evidence of obstruction, uvula midline. Mucous membranes moist. Neck: Trachea midline, no thyromegaly or masses palpated, and no cervical lymphadenopathy. Supple, full range of motion without nuchal rigidity, or vertebral point tenderness. No Meningismus. Chest/axilla: Normal chest wall appearance and motion. Nontender with no deformity. No lesions are appreciated. Cardiovascular: Regular rate and rhythm with a normal S1 and S2. No gallops, murmurs, or rubs. Normal PMI, no JVD. No pulse deficits. Respiratory: Lungs have equal breath sounds bilaterally, clear to auscultation and percussion. No rales, rhonchi or wheezes noted. No increased work of breathing, no retractions or nasal flaring. Abdomen/GI: Soft, non-tender, with normal bowel sounds. No distension or tympany. No guarding or rebound. No evidence of tenderness throughout. Back: No spinal tenderness. No costovertebral tenderness. Full range of motion. Skin: Warm, dry with normal turgor. Normal color with no rashes, no lesions, and no evidence of cellulitis. MS/ Extremity: Pulses equal, no cyanosis. Neurovascular intact. Full, normal range of motion. Neuro: Awake and alert, GCS 15, oriented to person, place, time, and situation. Cranial nerves II-XII grossly intact. Motor strength 5/5 in all extremities. Sensory grossly intact. Cerebellar exam normal. Normal gait. 08:46 MS/ Extremity: Pulses equal, no cyanosis. Neurovascular intact. Full, normal range ma2 of motion. 4+ pitting bilateral lower extremity edema equal bilaterally. Vital Signs: 07:30 BP 131 / 83; Pulse 88; Resp 16; Pulse Ox 97% ; Pain 4/10; cb5 07:31 BP 135 / 77; Pulse 84; Resp 20; Pulse Ox 100% ; Weight 117.93 kg; Height 5 ft. 10 in. vg1 (177.80 cm); Pain 10/10; 09:00 BP 133 / 82; Pulse 86; Resp 16; Pulse Ox 98% ; Pain 3/10; cb5 09:00 BP 133 / 86; Pulse 101; Resp 16; Pulse Ox 98% ; Pain 0/10; cb5 10:00 BP 131 / 74; Pulse 81; Resp 18; Pulse Ox 98% ; Pain 2/10; cb5 10:55 BP 132 / 78; Pulse 84; Resp 18; Pulse Ox 98% ; Pain 2/10; cb5 07:31 Body Mass Index 37.31 (117.93 kg, 177.80 cm) vg1 MDM: 07:31 Patient medically screened. ma2 08:46 Differential diagnosis: Likely liver cirrhosis, alcohol hepatitis, versus other ma2 hepatitis, patient has normal vital signs, no pulmonary edema clinically. Patient is intoxicated with alcohol as well. Differential diagnosis: No chest pain. Data reviewed: vital signs, nurses notes, EMS record. Response to treatment: the patient's symptoms have markedly improved after treatment. 09:59 Counseling: I had a detailed discussion with the patient and/or guardian regarding: the ia2 presence of at least one elevated blood pressure reading (>120/80) during this emergency department visit, the need for outpatient follow up. 11/12 07:32 Order name: Basic Metabolic Panel [facility] [place] 11/12 07:32 Order name: CBC with Diff; Complete Time: 09:49 [facility] [place] 11/12 07:32 Order name: LFT's [facility] [place] 11/12 07:32 Order name: NT PRO-BNP; Complete Time: 08:20 ia2 11/12 07:32 Order name: PT-INR; Complete Time: 08:20 [facility] [place] 11/12 07:32 Order name: Troponin HS; Complete Time: 08:20 [facility] [place] 11/12 07:32 Order name: XRAY Chest (1 view); Complete Time: 09:49 ia2 11/12 07:33 Order name: Basic Metabolic Panel; Complete Time: 08:20 EDMS 11/12 07:33 Order name: Liver (Hepatic) Function; Complete Time: 08:20 EDDC 11/12 07:59 Order name: CBC Smear Scan; Complete Time: 09:49 EDMS 11/12 08:20 Order name: US Abdomen Limited; Complete Time: 10:00 ia2 11/12 07:32 Order name: EKG; Complete Time: 07:33 ia2 11/12 07:32 Order name: Cardiac monitoring; Complete Time: 07:40 [facility] [place] 11/12 07:32 Order name: EKG - Nurse/Tech; Complete Time: 07:40 [facility] [place] 11/12 07:32 Order name: IV Saline Lock [facility] [place] 11/12 07:32 Order name: Labs collected and sent; Complete Time: 07:47 [facility] [place] 11/12 07:32 Order name: O2 Per Protocol; Complete Time: 07:40 [facility] [place] 11/12 07:32 Order name: O2 Sat Monitoring; Complete Time: 07:41 ma2 Administered Medications: 08:55 Drug: Valium (diazepam) 10 mg Route: IVP; Site: right forearm; cb5 08:55 Drug: Zofran (Ondansetron) 4 mg Route: IVP; Site: left forearm; cb5 08:55 Drug: Lasix (furosemide) 40 mg Route: IVP; Site: right forearm; cb5 09:00 Drug: morphine 4 mg Route: IVP; Site: right forearm; cb5 09:08 Drug: Banana Bag - (NS 0.9% 1000 ml, foLIC Acid 1 mg, Thiamine 100 mg, Multivitamin 1 cb5 amp) Route: IV; Rate: calculated rate; Site: right forearm; 10:05 Drug: morphine 4 mg Route: IVP; Site: right antecubital; cb5 Disposition Summary: 11/12/21 10:00 Discharge Ordered Location: Home(11/12/21 10:00) ma2 Condition: Stable(11/12/21 10:00) ma2 Diagnosis - Alcoholic cirrhosis of liver(11/12/21 10:00) ma2 Followup: ma2 - With: Private Physician - When: Tomorrow - Reason: Wound Recheck, If symptoms return Discharge Instructions: - Discharge Summary Sheet ma2 - Cirrhosis ma2 Forms: - Medication Reconciliation Form ma2 - Thank You Letter ma2 - Antibiotic Education ma2 - Prescription Opioid Use ma2 Prescriptions: - Lasix 40 mg Oral Tablet - take 1 tablet by ORAL route once daily for 30 days; 30 tablet; Refills: 0, ma2 Product Selection Permitted Signatures: Dispatcher [employer] EDMS Bessy Sarmiento MD MD ma2 Karine Hogan, RN RN vg1 Astrid Grey, RN RN cb5 Corrections: (The following items were deleted from the chart) 08:50 08:50 Home ma2 ma2 08:50 08:50 Stable ma2 ma2 08:50 08:50 Alcoholic cirrhosis of liver ma2 ma2
--- NOTE | 2021-11-12 08:50 | ER ---
Nurse's Notes [facility] Name: Sung Brown Jr Age: 46 yrs Sex: Male : 1975 Arrival Date: 11/12/2021 Time: 07:31 Bed 20 Private MD: Diagnosis: Alcoholic cirrhosis of liver Presentation: 11/12 07:31 Chief complaint: EMS states: Mid sternal Chest pain began yesterday 1400, radiates to vg1 the right side of body, pt states headache and nausea. Pt stated has had about 'half a gallon of vodka' in the past couple of days and 'took a couple of swigs' this morning. Pt states 'full body swelling' and has 'gained about 20 lbs' in about a week. Coronavirus screen: Vaccine status: Patient reports receiving the 2nd dose of the covid vaccine. Ebola Screen: Patient negative for fever greater than or equal to 101.5 degrees Fahrenheit, and additional compatible Ebola Virus Disease symptoms. Initial Sepsis Screen: Does the patient meet any 2 criteria? No. Patient's initial sepsis screen is negative. Does the patient have a suspected source of infection? No. Patient's initial sepsis screen is negative. Risk Assessment: Do you want to hurt yourself or someone else? Patient reports no desire to harm self or others. Onset of symptoms was November 11, 2021. 07:31 Method Of Arrival: EMS: [facility] 1 07:31 Acuity: CINTIA 2 vg1 Triage Assessment: 07:36 General: Appears in no apparent distress. uncomfortable, Behavior is calm, cooperative. vg1 Pain: Complains of pain in chest Pain currently is 10 out of 10 on a pain scale. Cardiovascular: Patient's skin is warm and dry. Derm: Rash noted that is on chest. Historical: - Allergies: 07:36 NKDA; vg1 - Home Meds: 07:36 Albuterol Inhl [Active]; omeprazole 40 mg Oral cpDR 1 cap once daily [Active]; vg1 Symbicort inhalation [Active]; - PMHx: 07:36 ADD/ADHD; cirrhosis of liver; COPD; Hepatitis; Hypertension; WPW; vg1 - PSHx: 07:36 multiple orthopedic surgeries; vg1 - Immunization history:: Client reports receiving the 2nd dose of the Covid vaccine. - Social history:: Smoking status: Patient reports the use of cigarette tobacco products, smokes one-half pack cigarettes per day. - Family history:: not pertinent. Screenin:30 Abuse screen: Denies threats or abuse. Denies injuries from another. Nutritional cb5 screening: No deficits noted. Tuberculosis screening: No symptoms or risk factors identified. 11:20 Fall Risk None identified. cb5 Assessment: 07:45 General: Appears uncomfortable, Behavior is calm, cooperative, appropriate for age. cb5 Pain: Complains of pain in chest Pain currently is 4 out of 10 on a pain scale. Neuro: No deficits noted. Level of Consciousness is awake, alert, obeys commands, Oriented to person, place, time, situation, Appropriate for age. Cardiovascular: Reports chest pain, Capillary refill < 3 seconds Rhythm is sinus rhythm. Respiratory: No deficits noted. GI: No deficits noted. : No deficits noted. : No deficits noted. EENT: No deficits noted. Derm: No deficits noted. Musculoskeletal: No deficits noted. 08:45 Reassessment: Patient and/or family updated on plan of care and expected duration. Pain cb5 level reassessed. 09:30 Pain: Complains of pain in chest Pain currently is 2 out of 10 on a pain scale. cb5 10:35 Pain: Pain currently is 1 out of 10 on a pain scale. cb5 10:55 Reassessment: pt wanted to speak with physician, is concerned he should be admitted.. cb5 11:00 General: M.D at bedside. cb5 Vital Signs: 07:30 BP 131 / 83; Pulse 88; Resp 16; Pulse Ox 97% ; Pain 4/10; cb5 07:31 BP 135 / 77; Pulse 84; Resp 20; Pulse Ox 100% ; Weight 117.93 kg; Height 5 ft. 10 in. vg1 (177.80 cm); Pain 10/10; 09:00 BP 133 / 82; Pulse 86; Resp 16; Pulse Ox 98% ; Pain 3/10; cb5 09:00 BP 133 / 86; Pulse 101; Resp 16; Pulse Ox 98% ; Pain 0/10; cb5 10:00 BP 131 / 74; Pulse 81; Resp 18; Pulse Ox 98% ; Pain 2/10; cb5 10:55 BP 132 / 78; Pulse 84; Resp 18; Pulse Ox 98% ; Pain 2/10; cb5 07:31 Body Mass Index 37.31 (117.93 kg, 177.80 cm) vg1 ED Course: 07:31 Patient arrived in ED. vg1 07:31 Bessy Sarmiento MD is Attending Physician. ma2 07:36 Triage completed. vg1 07:36 Arm band placed on. vg1 07:41 Patient has correct armband on for positive identification. Bed in low position. Call mh5 light in reach. Side rails up X2. Warm blanket given. equipment monitor phototypesetting on. Pulse ox on. NIBP on. 07:41 by ED staff, sent to lab. EKG done, by ED staff, reviewed by Bessy Sarmiento MD. mh5 07:46 Astrid Grey, RN is Primary Nurse. cb5 07:47 Liver (Hepatic) Function Sent. cb5 07:47 Basic Metabolic Panel Sent. cb5 07:47 Basic Metabolic Panel Sent. cb5 07:47 LFT's Sent. cb5 07:47 CBC with Diff Sent. cb5 07:47 NT PRO-BNP Sent. cb5 07:47 PT-INR Sent. cb5 07:47 Troponin HS Sent. cb5 07:52 XRAY Chest (1 view) In Process Unspecified. EDMS 08:33 Inserted saline lock: 22 gauge in right forearm, using aseptic technique. vg1 09:33 US Abdomen Limited In Process Unspecified. EDMS 11:21 No provider procedures requiring assistance completed. cb5 11:21 IV discontinued. cb5 Administered Medications: 08:55 Drug: Valium (diazepam) 10 mg Route: IVP; Site: right forearm; cb5 08:55 Drug: Zofran (Ondansetron) 4 mg Route: IVP; Site: left forearm; cb5 08:55 Drug: Lasix (furosemide) 40 mg Route: IVP; Site: right forearm; cb5 09:00 Drug: morphine 4 mg Route: IVP; Site: right forearm; cb5 09:08 Drug: Banana Bag - (NS 0.9% 1000 ml, foLIC Acid 1 mg, Thiamine 100 mg, Multivitamin 1 cb5 amp) Route: IV; Rate: calculated rate; Site: right forearm; 10:05 Drug: morphine 4 mg Route: IVP; Site: right antecubital; cb5 Outcome: 08:50 Discharge ordered by . ma2 10:00 Discharge ordered by . deepak 11:20 Discharged to home ambulatory. cb5 11:20 Condition: stable 11:20 Discharge instructions given to 11:21 Patient left the ED. cb5 Signatures: Dispatcher [employer] Libby Lopez Bessy Rodriguez MD MD ma2 Karine Hogan, RN RN vg1 Astrid Grey RN RN cb5
[2021-11-12] MEDS ORDERED: MORPHINE 4 MG/ML SYR ONE ×2 (08:58→10:18)
[2021-11-12] MEDS ORDERED: ONDANSETRON 4 MG/2 ML VIAL ONE (08:59)
[2021-11-12] MEDS ORDERED: DIAZEPAM 10 MG/2 ML INJ SYRINGE ONE (08:59)
[2021-11-12] MEDS ORDERED: FUROSEMIDE 40 MG/4 ML VIAL ONE (08:59)
[2021-11-12] MEDS ORDERED: FOLIC ACID 1 MG, MULTIVITAMINS INJ 10 ML, THIAMINE HCL 100 MG in NA CHLORIDE 0.9% 1,000 ML IV ONE (09:00)
--- NOTE | 2021-11-12 09:50 | RAD REPORT ---
EXAM DESCRIPTION: US - Abdomen Exam Limited - 11/12/2021 9:33 am CLINICAL HISTORY: Abdominal pain. COMPARISON: January 2021 CT FINDINGS: A cirrhotic liver with prominent left and caudate lobes. Coarsened echotexture. Previously described 1.6 centimeter lesion within the right lobe is not visualized on the current exa m but likely represents a cyst. Hepatopetal flow. A small amount of ascites Limited evaluation pancreas secondary to overlying bowel gas without gross abnormality seen The biliary tree is normal caliber. IMPRESSION: Cirrhosis
[2021-11-12 11:31] VITALS: O2SAT 98
[2021-11-12 11:34] VITALS: BP 132/78
--- NOTE | 2021-11-14 08:24 | EKG ---
Test Date: 2021-11-12 Test Time: 07:38:33 [employer] Helper: DRE MEASUREMENT RESULTS: Intervals: Rate: 77 RI: QRSD: 92 QT: 436 QTc: 493 [place]: P: RI: QRS: 55 T: 9 INTERPRETIVE STATEMENTS: Accelerated Junctional rhythm Prolonged QT Abnormal ECG Compared to ECG 04/06/2021 01:37:47 Accelerated junctional rhythm now present Prolonged QT interval now present Electronically Signed On 11-14-21 08:20:57 CDT by Candido Beach
== END 2021-11-12 11:21 | disposition home or self-care (01) ==
LOC: ER 07:27
DX: K70.30 Alcoholic cirrhosis of liver without ascites (principal); I10 Essential (primary) hypertension; J44.9 Chronic obstructive pulmonary disease, unspecified; I45.6 Pre-excitation syndrome; F17.210 Nicotine dependence, cigarettes, uncomplicated
CPT/HCPCS: 93005; 85025; 80048; 36415; 85610; 80076; 84484; 83880; 71045; 76705; 99285; J3411; J1940; J3360; J7030; J2405

== ENCOUNTER 2022-09-14 17:13 | Emergency (ER) | payer OTHER ==
--- OUTSIDE RECORDS SUMMARY | 2022-09-14 17:19 | XMS REPORT | Continuity of Care Document ---
:1975 Author Organization [facility] t Address [facility] [place] [address] Care Team Providers Name Role Phone FOUND, PCP NOT Primary Care Physician Unavailable Jennifer Pope Attending Clinician Unavailable SARKIS ZAMUDIO Attending Clinician Unavailable CROW MALDONADO Attending Clinician Unavailable LAB90 Attending Clinician Unavailable Sarkis Zamudio DO Attending Clinician Crow Maldonado MD Attending Clinician [phone] Matt ECHEVERRIA, Song Attending Clinician Kiran RN, Ivana Attending Clinician Unavailable JO MEJIA Attending Clinician Unavailable Solomon Almeida Attending Clinician Jo Mejia MD Attending Clinician Ginette Gonzalez Attending Clinician Dang BURGESS, Corbin Attending Clinician CORBIN ROUSSEAU Attending Clinician Unavailable Deven BURGESS, Angel Attending Clinician Doctor Unassigned, [place] Attending Clinician Unavailable JO MEJIA Admitting Clinician Unavailable Jackie BURGESS, Jo Admitting Clinician Corbin Rousseau MD Admitting Clinician CORBIN ROUSSEAU Admitting Clinician Unavailable Payers Payer Name Policy Type Policy Number Effective Date Expiration Date Neda PONCE KONRAD DUAL 7 [id number] 2022 COMPLETE 00:00:00 CAP(HMO D-SNP OA) HUMANA MA 5 [id number] 2022-08-27 00:00:00 [facility] [id number] [facility] MEDICARE MB [id number] 2004-03-27 [facility] NOVITAS 00:00:00 [facility] Problems Condition Condition Condition Status Onset Resolution Last Treating Co mments Source Name Details Category Date Date Treatment Clinician Date Oral Oral Disease Active 2021-08 Maribeth candidiasi candidiasi 0-04 Se ybold s s 00:00: - 00 Externa l Left foot Left foot Disease Active Art sey drop drop 05-02 Seybold 00:00: - 00 Externa l Chronic Chronic Disease Active Maribeth pain of pain of 05-02 Seybold right right 00:00: - ankle ankle 00 Externa l Chronic Chronic Disease Active Maribeth right-side right-side 05-02 Se ybold d low back d low back 00:00: - pain with pain with 00 Exte rna right-side right-side l d sciatica d sciatica Chronic Chronic Disease Active Maribeth idiopathic idiopathic 05-02 Se ybold thrombocyt thrombocyt 00:00: - openia openia 00 Externa l Anemia of Anemia of Disease Active Art sey chronic chronic 05-02 Seybold disease disease 00:00: - 00 Externa l Primary Primary Disease Active Maribeth hypertensi hypertensi 05-02 Se ybold on on 00:00: - 00 Externa l Gastroesop Gastroesop Disease Active Jason heller hageal hageal 05-02 Seybold reflux reflux 00:00: - disease disease 00 Externa without without l esophagiti esophagiti s s Current Current Disease Active Maribeth mild mild 05-02 Seybold episode of episode of 00:00: - major major 00 Externa depressive depressive l disorder disorder without without prior prior episode episode Gynecomast Gynecomast Disease Active Jason heller ia, male ia, male 05-02 Seybol d 00:00: - 00 Externa l Congestive Congestive Disease Active Jason arron heart heart 05-02 Seybold failure, failure, 00:00: - unspecifie unspecifie 00 Ex terna d HF d HF l chronicity chronicity , , unspecifie unspecifie d heart d heart failure failure type type Morbid Morbid Disease Active Maribeth obesity obesity 05-02 Seybold 00:00: - 00 Externa l Coagulatio Coagulatio Disease Active Jason heller n disorder n disorder 05-02 Se ybold 00:00: - 00 Externa l Masses of Masses of Disease Active Art beth both both 05-02 Seybold breasts breasts 00:00: - 00 Externa l Alcohol Alcohol Disease Active Maribeth abuse abuse 05-02 Seybold 00:00: - 00 Externa l History of History of Disease Active Jason arron hepatitis hepatitis 05-02 Seyb old C C 00:00: - 00 Externa l Alcoholic Alcoholic Disease Active Art beth liver liver 05-02 Seybold disease disease 00:00: - 00 Externa l Pneumonia Pneumonia Disease Active Uni vers 3-21 ity of 00:00: [place] 00 Medical Branch NSVT NSVT Disease Active Univers (nonsustai (nonsustai 3-11 it y of karla karla 00:00: [place] ventricula ventricula 00 Me dical r r Branch tachycardi tachycardi a) a) Obesity Obesity Disease Active Univers (BMI (BMI 3-10 ity of 30-39.9) 30-39.9) 00:: [place] [facility] Cigarette Cigarette Disease Active Uni vers smoker smoker 3-10 ity of 00:: [place] [facility] Alcohol Alcohol Disease Active Univers use use 3-10 ity of 00:: [place] [facility] Primary Primary Disease Active Univers hypertensi hypertensi 3-10 it y of on on :: [place] [facility] Hypocalcem Hypocalcem Disease Active U nivers ia ia 3-10 ity of :: [place] [facility] Chest pain Chest pain Disease Active U nivers in adult in adult 3-09 ity of 00:: [address] Hypertensi Hypertensi Problem Active C ommon on on [facility] 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 - [facility] [id number] Anxiety Problem Active [facility] [id number] Alcoholism Problem Active Comm on [facility] Gastroesop GERD Problem Active Commo n hageal (gastroeso Spirit reflux phageal [facility] disease reflux St disease) [facility] Nicotine Nicotine Problem Active Commo n dependence dependence Sp senait - [facility] Alcoholic Alcoholic Problem Active Com mon fatty fatty Spirit liver liver - [facility] [id number] Depression Problem Active Co mmon with Spirit anxiety [facility] COPD - COPD Problem Active Common Chronic (chronic Spirit obstructiv obstructiv - e e St pulmonary pulmonary Jenkins s disease disease) [facility] Center Problem Condition [facility] Allergies, Adverse Reactions, Alerts Allergy Allergy Status Severity Reaction(s) Onset Inactive Treating Comm ents Source Name Type Date Date Clinician Lisinopr Propensi Active Other Maribeth il ty to 8-19 reaction( Seybold adverse 00:00: s): - reaction 00 severe Externa s fatigue l NO KNOWN Drug Active Univers ALLERGIE Class ity of S [facility] lisinopr lisinopr Active severe Common il il fatigue [facility] Social History Social Habit Start Date Stop Date Quantity Comments Source History of Current Smoker [facility] rit - Tobacco Use [facility] Sex Assigned At [facility] senait - [facility] Exposure to Not sure University of SARS-CoV-2 [facility] (event) Branch Alcohol intake 2021-11-14 2021-11-14 Current drinker Unive rsity of 00:00:00 00:00:00 of alcohol [facility] (finding) Branch Tobacco use and 2021-11-02 2021-11-02 Never used Universit y of exposure 00:00:00 00:00:00 [facility] Education 2021-11-02 2021-11-02 15 University of 00:00:00 00:00:00 [facility] Smoking Status Start Date Stop Date Source Unknown if ever smoked [employer] Current Smoker 2020-03-05 00:00:00 [facility] - [facility] Medications Ordered Filled Start Stop Current Ordering Indication Dosage Frequency Signature Comments Components Source Medication Medication Date Date Medication? Clinician (SIG) Name Name Albuterol 2021-08 Yes by other Priscila ey (PROVENTIL) 0-04 route Seybold (2.5 08:11: - MG/3ML) 48 Externa 0.083% l inhalation Inhalant Solution Budesonide- 2021-08 Yes every 12 Ke lsey Formoterol 0-04 hours Seybold Fumarate 08:11: - 160-4.5 48 Externa MCG/ACT l inhalation Aerosol Folic Acid 2021-08 Yes 1{tbl} Take 1 Art sey 1 MG oral 0-04 tablet by Lilliano ld tablet 08:11: mouth - 48 daily Externa l Hydrocort-P 2021-08 Yes by other Luis lsey ramoxine, 0-04 route Seybold Perianal, 08:11: - (Proctofoam 48 Externa HC) 1-1 % l apply externally Foam Lorazepam 2021-08 Yes (Schedule K elsey MG oral 0-04 IV Drug) Seybold Tablet 08:11: - 48 Externa l Nicotine 2021-08 Yes every 24 Ke lsey MG/24HR 0-04 hours Seybold transdermal 08:11: - PATCH 24 HR 48 Externa l Nystatin 2021-08- No [id number] Take 5 mL Maribeth (Nystatin) 0-04 10-12 (500,000 Seyb old [id number] 00:00: 04:59 units - UNIT/ML 00 :00 total) by Externa mouth/throa mouth 4 l t times Suspension daily for 7 days Furosemide Yes [id number] 40mg QD Take 1 K elsey 40 MG oral 9-06 tablet (40 Sey bold Tablet 00:00: mg total) - 00 by mouth Externa daily as l needed (edema) FOR 30 DAYS Esomeprazol Yes [id number] 40mg Take 1 Maribeth e Magnesium 9-06 capsule Seybo ld 40 MG oral 00:00: (40 mg - Delayed 00 total) by Externa Release mouth l Capsule every morning (before breakfast) Thiamine Yes [id number] 100mg Take 1 Ke lsey HCl 100 MG 9-06 tablet Seybold oral Tablet 00:00: (100 mg - 00 total) by Externa mouth l daily Fluoxetine Yes [id number] 20mg Take 1 K elsey HCl 20 MG 9-06 capsule Seybold oral 00:00: (20 mg - Capsule 00 total) by Externa mouth l daily Carvedilol 2021- No [id number] 25mg Take 8 Maribeth (Coreg) 9-06 10-04 tablets Seybold 3.125 MG 00:00: 00:00 (25 mg - oral Tablet 00 :00 total) by Ext lilia mouth in l the morning and 8 tablets (25 mg total) in the evening. Take with meals. spironolact 2021- No [id number] 100mg Take 1 Univers one 100 mg 3-24 04-24 tablet by ity of tablet 00:00: 04:59 mouth [place] 00 :00 daily for Medical 30 days. Branch spironolact 2021- No [id number] 100mg Take 1 Univers one 100 mg 3-24 04-24 tablet by ity of tablet 00:00: 04:59 mouth [place] 00 :00 daily for Medical 30 days. Branch levoFLOXaci 2021- No [id number] 750mg Take 1 Univers n 750 mg 3-24 03-28 tablet by ity o f tablet 00:00: 04:59 mouth [place] 00 :00 daily for Medical 3 days. Branch levoFLOXaci 2021- No [id number] 750mg Take 1 Univers n 750 mg 3-24 -28 tablet by ity o f tablet 00:00: 04:59 mouth [place] 00 :00 daily for Medical 3 days. Branch esomeprazol 2021- No 20mg Take 20 mg Univers e 20 mg 11-16 by mouth ity of packet 13:46: 00:00 daily [place] 01 :00 breakfast. Medical Branch budesonide- 2021- No 2{puff} Inhale 2 Univers formoteroL 11-16 Puffs 2 ity o f (SYMBICORT) 13:46: 00:00 (two) [place] 160-4.5 01 :00 times Medical mcg/actuati daily. Branch on inhaler albuterol 2021- No 2{puff} Inhale 2 Univers 90 11-16 Puffs ity of mcg/actuati 13:46: 00:00 [place] 4 [place] on inhaler 01 :00 (four) Medical hours as Branch needed for Wheezing or Shortness of Breath. thiamine 2021- No 100mg Take 100 Uni vers 100 mg 11-16 mg by ity of tablet 13:46: 00:00 mouth [place] 01 :00 daily. Medical Branch foLIC acid 2021- No 1mg Take 1 mg U nivers 1 mg tablet 11-16 by mouth ity of 13:46: 00:00 daily. [place] 01 :00 Medical Branch morpHINE 2021- No 2mg 2 mg, Slow Un bill injection 2 11-16 IV Push, ity of mg 04:15: 03:30 ONCE, 1 [place] 00 :00 dose, On Medical [facility] Branch 11/15/21 at 2315, Routine oxazepam 2021- No 15mg [Order 1 Univ ers (SERAX) 11-16 Start] ity of capsule 15 03:18: 03:29 Name: [place] mg 19 :00 oxazepam Medical (SERAX) Branch capsule 15 mg Signed Summary: 15 mg, Oral, Q8H TAPER, 3 doses, First dose on Sun11/15/21 at 2230, Last dose on Sun11/16/21 at 1430, Routine [Order 1 End] [Order 2 Start] Name: oxazepam (SERAX) capsule 15 mg Signed Summary: 15 mg, Oral, Q12H TAPER, 2 doses, First dose on [place] 11/17/21 at 0230, Last dose on Sun11/17/21 at 1430, Routine [Order 2 End] nicotine 14 2021- No [id number] 1{patch Apply 1 Univers mg/24 hr 11-16 } Patch to ity of patch 00:00: 04:59 area(s) [place] 00 :00 every 24 Medical (- Branch ur) hours for 30 days. furosemide 2021- No [id number] 40mg Take 1 U nivers 40 mg 11-16 tablet by ity of tablet 00:00: 04:59 mouth [place] 00 :00 every Medical morning Branch and evening for 30 days. nicotine 14 2021- No [id number] 1{patch Apply 1 Univers mg/24 hr 11-16 } Patch to ity of patch 00:00: 04:59 [facility](s) [place] 00 :00 every 24 Medical (-fo Branch ur) hours for 30 days. furosemide 2021- No [id number] 40mg Take 1 U nivers 40 mg 11-16 tablet by ity of tablet 00:00: 04:59 mouth [place] 00 :00 every Medical morning Branch and evening for 30 days. KCL 2021- No 40meq 40 mEq, Univers (KLOR-CON 11-15 Oral, ity of M20) tablet 14:45: 13:42 ONCE, 1 [place] 40 mEq 00 :00 dose, On Medical [facility] 11/15/21 at 0945, Routine magnesium 2021- No 2g 2 g, IV Univ ers sulfate in 11-15 Piggyback, it y of water 2 14:45: 14:45 Administer Paul as gram/50 mL 00 :00 over 60 Medica l (4 %) Minutes, Branch infusion 2 ONCE, 1 g dose, On [facility] 11/15/21 at 0945, Routine foLIC acid Yes 1mg 1 mg, Univer s (FOLATE) 11-15 Oral, ity of tablet 1 mg 14:00: DAILY, [place] 00 First dose Medical on [facility] 11/15/21 at 0900, Until Discontinu ed, Routine thiamine 2021-0 Yes 100mg 100 mg, Unive rs (VITAMIN 11-15 Oral, ity of B1) tablet 14:00: DAILY, [place] 100 mg 00 First dose Medical on Sun Branch 11/15/21 at 0900, Until Discontinu ed, Routine levoFLOXaci 2021-0 2022- No 750mg 750 mg, U nivers n 11-15 03-28 Oral, ity of (LEVAQUIN) 14:00: 13:59 DAILY, 6 [place] tablet 750 00 :00 doses, Medical mg First dose Branch on Sun11/15/21 at 0900, Last dose on Sun11/20/21 at 0900, PHYLLIS
Re ason for Anti-Infec tive: Documented Infection< br>Documen jocelyn Infection Site: Respirator y
Durat ion of Therapy: 7 days furosemide 0 Yes 40mg 40 mg, Unive rs (LASIX) 11-15 Slow IV ity of injection 13:00: Push, [place] 40 mg 00 Q12H, Medical First dose Branch (after last modificati on) on Sun11/15/21 at 0800, Until Discontinu ed, Routine ipratropium 0 Yes 3mL 3 mL, Unive rs -albuteroL 11-15 Inhalation ity of (DUONEB) 07:27: , QIDPRN, [place] 0.5 mg-3 01 Starting Medical mg(2.5 mg on Sun base)/3 mL 11/15/21 at nebulizer 0227, solution 3 Until mL Discontinu ed, Routine, Wheezing, Shortness of Breath, Bronchospa sm, Chest tightness codeine-gua 2021-0 Yes 5mL 5 mL, Unive rs ifenesin 11-15 Oral, ity of (ROBITUSSIN 07:26: Q4HPRN, Paul as AC) 10-100 32 Starting Medic al mg/5 mL on Sun Branch oral 11/15/21 at solution 5 0226, mL Until Discontinu ed, Routine, Cough nicotine 2021-0 Yes 1{patch 1 Patch, Un bill (NICODERM) 11-15 } Topical, ity o f 14 mg/24 hr 04:15: Administer [place] patch 1 00 over 24 Medical Patch Hours, Branch Q24H, First dose on Sun11/14/21 at 2315, Until Discontinu ed, Routine LORazepam 0 Yes 1mg 1 mg, Slow Un bill (ATIVAN) 11-15 IV Push, ity of injection 1 01:18: Q4HPRN, Paul as mg 32 Starting Medical on Sun Branch 11/14/21 at 2018, Until Discontinu ed, Routine, Anxiety, Agitation, Seizures, Sedation, alcohol withdrawal syndrome oxazepam 2021-0 Yes 15mg 15 mg, Univers (SERAX) 11-15 Oral, ity of capsule 15 01:18: Q4HPRN, [place] mg 19 Starting Medical on Sun Branch 11/14/21 at 2018, Until Discontinu ed, Routine, Only while awake for DBP equal to or greater than 100, HR equal to or greater than 100. furosemide 0 2021- No 20mg 20 mg, Univ ers (LASIX) 11-15 Slow IV ity of injection 01:00: 03:21 Push, [place] 20 mg 00 :23 Q12H, Medical First dose Branch on Sun11/14/21 at 2000, Until Discontinu ed, Routine spironolact 0 Yes 100mg 100 mg, Un bill one 11-14 Oral, ity of (ALDACTONE) 20:15: DAILY, [place] tablet 100 00 First dose Med ical mg on Sun Branch 11/14/21 at 1515, Until Discontinu ed, Routine ondansetron 0 Yes 4mg 4 mg, Slow Univers (ZOFRAN 11-14 IV Push, ity of (PF)) 19:58: Q6HPRN, [place] injection 4 19 Starting Medi dyana mg on Sun Branch 11/14/21 at 1458, Until Discontinu ed, Routine, Nausea and Vomiting (N/V) morpHINE 2021-0 2021- No 4mg 4 mg, Slow Un bill injection 4 11-14 IV Push, ity of mg 19:58: 19:57 Q4HPRN, [place] 17 :17 Starting Medical on Sun Branch 11/14/21 at 1458, Until Sun11/15/21 at 1457, Routine, Pain (scale 7-10) HYDROcodone 2021- No 1{tbl} 1 tablet, Univers -acetaminop 11-14 Oral, ity of hen (NORCO 19:58: 19:57 Q6HPRN, Paul as 5) 5-325 mg 15 :15 Starting Medi dyana tablet 1 on Mon Branch tablet 11/14/21 at 1458, Until 11/16/21 at 1457, Routine, Pain (scale 4-6) acetaminoph Yes 650mg 650 mg, Un bill en 11-14 Oral, ity of (TYLENOL) 19:58: Q6HPRN, [place] tablet 650 08 Starting Medic al mg on Mon Branch 11/14/21 at 1458, Until Discontinu ed, Routine, Pain (scale 1-3) KCL 2021- No 40meq 40 mEq, Univers (KLOR-CON 11-14 Oral, ity of M20) tablet 19:15: 18:32 ONCE, 1 [place] 40 mEq 00 :00 dose, On Medical Mon Branch 11/14/21 at 1415, PHYLLIS furosemide 2021- No 40mg 40 mg, IV U nivers (LASIX) 11-14 Push, ity of injection 19:15: 18:32 ONCE, 1 [place] 40 mg 00 :00 dose, On Medical Mon Branch 11/14/21 at 1415, PHYLLIS azithromyci 2021- No 500mg 500 mg, IV Univers n 11-14 Piggyback, ity of (ZITHROMAX) 19:00: 19:40 [place]CE[place] 1 [place] 500 mg in 00 :00 dose, On Medica l NaCl 0.9% [facility] Branch (NS) 250 mL 11/14/21 at VIAL-MATE 1400, IV Administer piggyback over 60 Minutes, 250 mL
R stalin for Anti-Infec tive: Empiric Therapy for Suspected Infection< br>Empiric Therapy Site: Respirator y
Durat ion of therapy: 72 hours cefTRIAXone 2021- No 1000mg 1,000 mg, Univers (ROCEPHIN) 11-14 IV ity of 1,000 mg in 19:00: 18:30 Piggyback, [place] NaCl 0.9% 00 :00 ONCE, 1 Medical (NS) 50 mL dose, On Branc h MINI-BAG 11/14/21 at 1400, Administer over 30 Minutes, 50 mL
Reas on for Anti-Infec tive: Empiric Therapy for Suspected Infection< br>Empiric Therapy Site: Respirator y
Durat ion of therapy: 72 hours ondansetron No 4mg 4 mg, Slow Univers (ZOFRAN 11-14 IV Push, ity of (PF)) 18:45: 17:37 ONCE, 1 [place] injection 4 00 :00 dose, On Medi dyana mg [facility] Branch 11/14/21 at 1345, PHYLLIS morpHINE 2021- No 4mg 4 mg, Slow Un bill injection 4 11-14 IV Push, ity of mg 18:45: 17:37 ONCE, 1 [place] 00 :00 dose, On Medical [facility] 11/14/21 at 1345, STAT No known No Univers medications 11-14 ity of 17:39: [place] 29 [facility] Branch Omeprazole Omeprazole Yes Jennifer 1 capsule Common 1-29 [place] 30 minutes Spirit 00:00: before - morning [facility] HydrOXYzine HydrOXYzine Yes Jennifer 1 tablet Common HCl HCl 8-20 [place] as needed Spirit 00:00: - [facility] Escitalopra Escitalopra Yes Jennifer 1 tablet Common m Oxalate m Oxalate 7-15 [place] Spir it 00:00: - [facility] Escitalopra Escitalopra No 1{table QD Escitalopr m Oxalate m Oxalate 7-15 t} am Oxalate 10 MG 10 MG 00:00: 10 MG 00 Albuterol Albuterol No 3{ml_as TID Albuterol Sulfate Sulfate _needed Sulfate (2.5 (2.5 } (2.5 MG/3ML) MG/3ML) MG/3ML) 0.083% 0.083% 0.083% Viberzi 75 Viberzi 75 No 1{table BID Viberzi 75 MG MG t_with_ MG food} Ventolin Ventolin No QID Ventolin HFA 108 (90 HFA 108 (90 HFA 108 Base) Base) (90 Base) MCG/ACT MCG/ACT MCG/ACT Proctofoam Proctofoam No 1{appli QID Proctofoam HC 1-1 % HC 1-1 % cation_ HC 1-1 % as_need ed} chlordiazeP chlordiazeP No chlordiaze OXIDE HCl OXIDE HCl POXIDE HCl 25 MG 25 MG 25 MG Omeprazole Omeprazole No QD Omeprazole 40 MG 40 MG 40 MG Carvedilol Carvedilol No BID Carvedilol 25 MG 25 MG 25 MG Symbicort Symbicort No BID Symbicort 160-4.5 160-4.5 160-4.5 MCG/ACT MCG/ACT MCG/ACT Albuterol No 2 [facility] (Proair Hfa S - Inh) 8 [facility] Carvedilol No 25mg [facility] (Coreg) 25 S - Mg TAB [facility] Chlordiazep No 25mg [facility] oxide S - (Librium) [place] 25 Mg [facility] Fluoxetine No 20mg [facility] Hcl S - (Prozac) 20 [place] Mg [facility] Folic Acid No 1mg [facility] (Folvite) 1 S - Mg TAB [facility] Losartan No 50mg [facility] Potassium S - (Cozaar) 50 [place] Mg TAB [facility] Omeprazole No 40mg [facility] (Prilosec) S - 40 Mg CPDR [facility] Thiamine No 100mg [facility] Hcl S - (Vitamin [place] B-1) 100 Mg Memoria TAB l Hospita [...] Albuterol Yes Jennifer 3 ml as C ommon Sulfate Sulfate [place] needed Spirit - [facility] Esomeprazol Esomeprazol Yes Jennifer TAKE 1 Common e Magnesium e Magnesium [place] CAPSULE BY Spirit MOUTH - [facility]I EVERY DAY [facility] Symbicort Symbicort Yes Jennifer inhale 2 Common [place] puffs by Spirit mouth - [facility]I twice [facility] Viberzi Viberzi Yes Jennifer 1 tablet Comm on [place] with food [facility] Proctofoam Proctofoam Yes Jennifer 1 Co mmon HC HC [place] applicatio Spirit n as - CHI needed [facility] Gabapentin Gabapentin Yes Jennifer TAKE ONE Common [place] CAPSULE BY Spirit MOUTH 3 - CHI TIMES A [facility] Losartan Losartan Yes Jennifer TAKE 1 Comm on Potassium Potassium [place] TABLET BY Spirit MOUTH - CHI EVERY DAY [facility] Ventolin Ventolin Yes Jennifer 2 puffs Com mon HFA HFA [place] inhaled Spirit every 4-6 - CHI hours as [facility] Chlordiazep Chlordiazep Yes Jennifer (Schedule Common oxide HCl oxide HCl [place] IV Drug) Spirit TK 1 C PO - CHI TID [facility] Nicotine Nicotine Yes Jennifer 1 patch to Common [place] skin [facility] Carvedilol Carvedilol Yes Jennifer 1 tab(s) 2 Common [place] times a Spirit day orally - [facility] Losartan Losartan No QD Losartan Potassium Potassium Potassium 50 50 50 Gabapentin Gabapentin No Gabapentin 300 MG 300 MG 300 MG Nicotine 21 Nicotine 21 No 1{patch QD Nicotine MG/24HR MG/24HR _to_ski 21 MG/24HR n} Immunizations Ordered Filled Immunization Date Status Comments Sour e Immunization Name Name SARS-COV-2 COVID-19 2021-07-15 Completed Unive rsity of PFIZER VACCINE 00:00:00 [facility] SARS-COV-2 COVID-19 2021-07-15 Completed Unive rsity of PFIZER VACCINE 00:00:00 [facility] SARS-COV-2 COVID-19 2021-07-15 Completed Unive rsity of PFIZER VACCINE 00:00:00 [facility] Influenza Virus 2021-05-06 Completed Maribeth montanez - Vaccine, 00:00:00 External Unspecified Formulation Influenza Virus 2021-05-06 Completed Universit y of Vaccine 00:00:00 [facility] Influenza Virus 2021-05-06 Completed Universit y of Vaccine 00:00:00 [facility] Influenza Virus 2021-05-06 Completed Universit y of Vaccine 00:00:00 [facility] SARS-COV-2 COVID-19 2021-04-11 Completed Unive rsity of PFIZER VACCINE 00:00:00 [facility] SARS-COV-2 COVID-19 2021-04-11 Completed Unive rsity of PFIZER VACCINE 00:00:00 [facility] SARS-COV-2 COVID-19 2021-04-11 Completed Unive rsity of PFIZER VACCINE 00:00:00 [facility] SARS-COV-2 COVID-19 2021-03-21 Completed Unive rsity of PFIZER VACCINE 00:00:00 [facility] SARS-COV-2 COVID-19 2021-03-21 Completed Unive rsity of PFIZER VACCINE 00:00:00 [facility] SARS-COV-2 COVID-19 2021-03-21 Completed Unive rsity of PFIZER VACCINE 00:00:00 [facility] Influenza Virus 2019-07-02 Completed Maribeth montanez - Vaccine, No 00:00:00 External Preserv, age 6 months and up Influenza Virus 2019-07-02 Completed Universit y of Vaccine Quad .5 mL 00:00:00 [facility] IM 6+ MO Branch Influenza Virus 2019-07-02 Completed Universit y of Vaccine Quad .5 mL 00:00:00 [facility] IM 6+ MO Branch Influenza Virus 2019-07-02 Completed Universit y of Vaccine Quad .5 mL 00:00:00 [facility] IM 6+ MO Branch Vital Signs Vital Name Observation Time Observation Value Comments Source Systolic blood 2022-05-30 13:08:00 145 mm[Hg] Maribeth Salgado pressure External Diastolic blood 2022-05-30 13:08:00 73 mm[Hg] Catracho Salgado pressure External Heart rate 2022-05-30 13:08:00 79 /min Maribeth S eybold - External Body temperature 2022-05-30 13:08:00 36.78 Rafaela Priscila Thakkar - External Respiratory rate 2022-05-30 13:08:00 14 /min Priscila Thakkar - External Body height 2022-05-30 13:08:00 177.8 cm Maribeth bolivarbotod - External Body weight 2022-05-30 13:08:00 111.131 kg Maribeth bolivarbotod - External BMI 2022-05-30 13:08:00 35.15 kg/m2 Maribeth tena - External Oxygen saturation in 2022-05-30 13:08:00 99 /min Maribeth Thakkar - Arterial blood by External Pulse oximetry Systolic blood 2021-11-16 13:58:00 127 mm[Hg] Univer sity of pressure [facility] Diastolic blood 2021-11-16 13:58:00 71 mm[Hg] Unive rsity of pressure [facility] Heart rate 2021-11-16 13:58:00 107 /min [facility] Body temperature 2021-11-16 13:58:00 36.5 Rafaela Univ ers[facility] Respiratory rate 2021-11-16 13:58:00 18 /[facility] in 2021-11-16 13:58:00 96 /min [facility] Arterial blood by [place] [facility] Pulse oximetry Branch Body weight 2021-11-16 08:55:00 114.987 kg [facility] BMI 2021-11-16 08:55:00 36.37 kg/m2 [facility] Body height 2021-11-14 20:04:00 177.8 cm [facility] Heart Rate 2020-04-01 05:01:00 75 /min [facility] Respiratory rate 2020-04-01 05:01:00 16 /min [facility] BP Systolic 2020-04-01 05:01:00 102 mm[Hg] [facility] BP Diastolic 2020-04-01 05:01:00 59 mm[Hg] [facility] Heart Rate 2020-04-01 04:21:00 75 /min [facility] Respiratory rate 2020-04-01 04:21:00 16 /min [facility] BP Systolic 2020-04-01 04:21:00 102 mm[Hg] [facility] BP Diastolic 2020-04-01 04:21:00 59 mm[Hg] [facility] Procedures Procedure Date / Time Performing Clinician Source Performed AMMONIA, PLASMA 2021-11-16 10:37:[facility] 2021-11-15 14:29[facility]-15 09[facility]-11-15 09:21[facility]00 [id number] (ALB,T.PRO,[facility] T,BU/BC,ALT,AST,ALK PHOS) BASIC METABOLIC PANEL 2021-11-15 09:21:00 [facility] (NA, K, CL, CO2, [facility] GLUCOSE, BUN, CREATININE, CA) CBC WITH DIFF 2021-11-15 09:21[facility]FF 2021-11-14 18:15:00 Solomon Garcia [facility] PROTHROMBIN TIME / INR 2021-11-14 18:15:00 Solomon Garcia [facility] BLOOD CULTURE SCREEN 2021-11-14 18:05:00 Solomon Garcia [facility] LACTIC ACID WHOLE BLOOD 2021-11-14 18:04:00 Solomon Garcia [facility] XR CHEST 1 VW 2021-11-14 17:27:38 Solomon Garcia [facility] LIPASE 2021-11-14 17:21:00 Solomon Garcia [facility] TROPONIN I 2021-11-14 17:21:00 Solomon Garcia [facility] HEPATIC FUNCTION PANEL 2021-11-14 17:21:00 Solomon Garcia [facility] ([id number]) (ALB,T.PRO,[facility] T,BU/BC,ALT,AST,ALK PHOS) BASIC METABOLIC PANEL 2021-11-14 17:21:00 Solomon Garcia [facility] (NA, K, CL, CO2, Medical Branch GLUCOSE, BUN, CREATININE, CA) N-TERMINAL PRO-BNP 2021-11-14 17:21:00 Solomon Garcia [facility] COVID-19 (ID NOW RAPID 2021-11-14 17:21:00 Solomon Garcia [facility] TESTING) Medical Branch URINALYSIS 2021-11-14 17:20:00 Solomon Garcia [facility] HB ECG ROUTINE & RHYTHM 2021-11-14 17:11:04 Solomon Garcia [facility] CONSENT/REFUSAL FOR 2021-11-14 16:50:47 Doctor Unassigned, No Un [facility] DIAGNOSIS AND TREATMENT Name Medical Branch Computed tomography of 2020-03-31 00:00:00 [facility] abdomen and pelvis without contrast Plan of Care Planned Activity Planned Date Details Comments Source Goal [id number] (DC[facility] LON lou[facility] al Encounters Start End Encounter Admission Attending Care Care Encounter Source Date/Time Date/Time Type Type Clinicians Facility Department ID 2022-01-17 [facility] [id number] Common 15:00:01 [facility] 2021-09-21 Outpatient Niko, STDARYLLC [facility] [id number] Common 11:30:08 Jennifer [id number] [facility] 2022-08-30 2022-08-30 Outpatient MARIBETH ZAMUDIO [id number] [place] 08:00:00 08:00:00 SARKIS lyle 2022-07-04 2022-07-04 Outpatient MARIBETH ZAMUDIO [id number] [place] 00:00:00 00:00:00 SARKIS lyle 2022-06-15 2022-06-15 Outpatient MARIBETH MALDONADO [id number] [place] 00:00:00 00:00:00 CROW lyle 2022-06-07 2022-06-07 Outpatient PREZAS, MARIBETH TERRAZAS [id number] [place] 00:00:00 00:00:00 SARKIS Seybol d 2022-06-06 2022-06-06 Outpatient PREZAS, MARIBETH TERRAZAS [id number] [place] 00:00:00 00:00:00 SARKIS Seybol d 2022-06-05 2022-06-05 Outpatient PREZAS, MARIBETH TERRAZAS [id number] [place] 00:00:00 00:00:00 SARKIS Seybol d 2022-05-30 2022-05-30 Outpatient LAB90 MARIBETH TERRAZAS [id number] [place] 08:30:00 08:30:00 Seybol d 2022-05-30 2022-05-30 Outpatient PREZAS, MARIBETH TERRAZAS [id number] [place] 08:00:00 08:00:00 SARKIS Seybol d 2022-05-12 2022-05-12 Outpatient PREZAS, MARIBETH TERRAZAS [id number] [place] 00:00:00 00:00:00 SARKIS Seybol d 2022-05-12 2022-05-12 Outpatient PREZAS, MARIBETH TERRAZAS [id number] [place] 00:00:00 00:00:00 SARKIS Seybol d 2022-05-10 2022-05-10 Outpatient PREZAS, MARIBETH TERRAZAS [id number] [place] 00:00:00 00:00:00 SARKIS Seybol d 2022-05-08 2022-05-08 Outpatient PREZAS, MARIBETH TERRAZAS [id number] [place] 00:00:00 00:00:00 SARKIS Seybol d 2022-05-02 2022-05-02 Office Prezas Ash 1.2.840.114 [id number] [place] 09:00:00 09:15:00 Visit Sarkis Bowens 350.1.13.13 Se ybold 1.2.7.2.686 [id number] 2022-04-27 2022-04-27 Outpatient PREZAS, MARIBETH TERRAZAS [id number] [place] 00:00:00 00:00:00 SARKIS Seybol d 2022-04-21 2022-04-21 Outpatient MARIBETH MALDONADO [id number] [place] 08:00:00 08:00:00 CROW Schraderybol d 2022-04-07 2022-04-07 Office JoelMihir eaton 1.2.840.114 [id number] [place] 09:00:00 09:30:00 Visit Crow Bowens 350.1.13.13 Se lisseth Somogyi 1.2.7.2.686 [id number] 0 2022-04-06 2022-04-06 Outpatient JOEL MARIBETH TERRAZAS [id number] [place] 00:00:00 00:00:00 CROW Schraderybol d 2022-03-31 2022-03-31 Outpatient LAB90 MARIBETH TERRAZAS [id number] [place] 09:20:00 09:20:00 Seybol d 2022-03-31 2022-03-31 Office JoelMihir eaton 1.2.840.114 [id number] [place] 08:30:00 09:00:00 Visit Crow Bowens 350.1.13.13 Se lisseth Somogyi 1.2.7.2.686 [id number] 0 2022-01-10 2022-01-10 Telephone Matt [facility] [[email or web address]] 1.2.840.114 [id number] Univers 00:00:00 00:00:00 Song COLEMAN 350.1.13.10 [place] [id number] Hi dical NAL [address] [place] [address] 2021-11-17 2021-11-17 Transition ED Beck 1.2.840.114 [id number] Univers 00:00:00 00:00:00 of Care Ivana PATIÑOY 350.1.13.10 it y of [id number] [address] 2021-11-14 2021-11-16 Inpatient X JACKIE COMAGDIEL GRACE [id number] Univers 12:06:00 11:15:00 JO beasley of [facility] 2021-11-14 2021-11-16 [facility] Solomon Garcia [facility] [[email or web address]] 1.2.840. 114 [id number] Univers 12:06:00 11:15:00 Encounter Jo Mejia 350.1.13.10 [place] [id number] [facility] 081 Branch 2021-11-14 2021-11-16 Outpatient X JACKIE [facility] [[email or web address]] GRACE [id number] Univers 12:06:00 11:15:00 [facility] 2021-11-02 2021-11-04 [facility] 1.2.840.1 [id number] Univers 18:50:00 10:45:00 Encounter JackieElliotJoraudel COLEMAN 350.1.13.10 ity of [place] 4.2.7.2.686 [facility] [id number] [address] 2021-11-02 2021-11-04 Outpatient [facility] [id number] Univers 18:50:00 10:45:00 CORBIN mika [facility] 2021-11-02 2021-11-04 Inpatient X [facility] [id number] Univers 18:50:00 10:45:00 CORBIN [facility] 2021-11-04 2021-11-04 [facility] 1.2.314.458 [id number] Univers 00:00:00 00:00:00 Angel COLEMAN 350.1.13.10 [place] [id number] Hi dical NAL [address] Branch [facility] 2021-11-02 2021-11-02 Orders Doctor SUKHI 1.2.840.114 [id number] Univers 00:00:00 00:00:00 Only Unassigned, MARQUES 350.1.13.10 ity of [place] [facility] 4.2.7.2.686 Paul as [id number] [facility] 009 Branch 2021-04-13 2021-04-13 (TEL) [facility] [id number] Co mmon 00:00:00 00:00:00 [facility] 2020-03-31 2020-04-01 Departed GAYLA Ni [id number] CHRISTU 23:29:00 04:32:00 Emergency [place] [address] [address] Room [facility] 2020-03-31 2020-04-01 Departed LON FORREST [id number] CHRISTU 23:29:00 04:32:00 Emergency 33 S Room [facility] 2020-03-05 2020-03-05 [facility] [id number] Common 08:20:00 08:20:[address] [facility] 2019-09-24 2019-09-24 Outpatient [facility] [id number] Common 19:14:00 19:14:[address] [facility] 2019-04-15 2019-04-15 Outpatient [facility] [id number] Common 08:40:00 08:40:[address] [facility] 2019-03-10 2019-03-10 Outpatient [facility] [id number] Common 14:40:00 14:40:[address] [facility] 2019-02-26 2019-02-26 Outpatient [facility] [id number] Common 09:40:00 09:40:[address] [facility] 2019-02-24 2019-02-24 Outpatient [facility] [id number] Common 14:16:00 14:16:[address] [facility] 2018-11-14 2018-11-14 Outpatient [facility] [id number] Common 13:30:00 13:30:[address] [facility] Results Test Description Test Time Test Comments Results Result Comments Source AMMONIA, PLASMA 2021-11-16 11:07:26 Test Item Value Reference Range Interpretation Comme nts AMMONIA (test code = 7361203606) 61 umol/L 9-33 H Lab Interpretation (test code = 07107-8) Abnormal [facility] [id number] 10:20:12 Test Item Value Reference Range Interpretation Comments MAGNESIUM (test code = 7909290297) 1.3 mg/dL 1.7-2.4 L Lab Interpretation (test code = Abnormal 03896-3) [facility] (NA, K, CL, CO2, GLUCOSE, BUN, CREATININE, CA)2021-11-15 10:19:52 Test Item Value Reference Range Interpretation Comments NA (test code = 134 mmol/L 135-145 L 4941059108) K (test code = 3.1 mmol/L 3.5-5.0 L 7140989825) CL (test code = 100 mmol/L 98-108 3707461730) CO2 TOTAL (test code = 27 mmol/L 23-31 9723290248) AGAP (test code = 2-16 1041476159) BUN (test code = 8 mg/dL 7-23 2439994810) GLUCOSE (test code = 114 mg/dL 70-110 H 1158646766) CREATININE (test code = 0.84 mg/dL 0.60-1.25 5618749577) CALCIUM (test code = 7.6 mg/dL 8.6-10.6 L 6691337526) eGFR (test code = mL/min/1.73m2 2286537133) ROBERT (test code = ROBERT) Association of [...] tests). Lab Interpretation Abnormal (test code = 94613-1) [facility] ([address]) (ALB,T.PRO,BILI T,BU/BC,ALT,AST,ALK PHOS)2021-11-15 10:19:52 Test Item Value Reference Range Interpretation Comments TOTAL BILI (test code = 2450225100) 5.3 mg/dL 0.1-1.1 H BILI UNCON (test code = 7895308847) 2.0 mg/dL 0.1-1.1 H BILI CONJ (test code = 7541392817) 0.6 mg/dL 0.0-0.3 H T PROTEIN (test code = 1130645533) 7.3 g/dL 6.3-8.2 ALBUMIN (test code = 3088366704) 3.2 g/dL 3.5-5.0 L ALK PHOS (test code = 5758940623) 212 U/L 34-122 H ALTv (test code = 1742-6) 35 U/L 5-50 AST(SGOT) (test code = 3963738915) 122 U/L 13-40 H Lab Interpretation (test code = Abnormal 71872-5) [facility] [id number] 10:15:10 Test Item Value Reference Range Interpretation Comments WBC (test code = See_Comment [Automated 5890-2) message] The sy stem which generated this result transmitted reference range : 4.20 - 10.70 10*3/?L. The reference range was not used to interpret this result as normal/abnormal . RBC (test code = See_Comment L [Automated 679-8) message] The sy stem which generated this result transmitted reference range : 4.26 - 5.52 10*6/?L. The reference range was not used to interpret this result as normal/abnormal . HGB (test code = 10.8 g/dL 12.2-16.4 L 718-7) HCT (test code = 31.7 % 38.4-49.3 L 4544-3) MCV (test code = 103.3 fL 81.7-95.6 H 787-2) MCH (test code = 35.2 pg 26.1-32.7 H 785-6) MCHC (test code = 34.1 g/dL 31.2-35.0 786-4) RDW-SD (test code = 56.1 fL 38.5-51.6 H 29815-6) RDW-CV (test code = 14.9 % 12.1-15.4 788-0) PLT (test code = See_Comment L [Automated 777-3) message] The sy stem which generated this result transmitted reference range : 150 - 328 10*3/ ?L. The reference r raul was not used to interpret this result as normal/abnormal . MPV (test code = 10.1 fL 9.8-13.0 11313-3) IPF % (test code = 2.2 % 1.2-10.7 Platelet count 8628228611) measured by fluorescence method. NRBC/100 WBC (test See_Comment [Automat ed code = 9658530222) message] The system which generated this result transmitted reference range : 0.0 - 10.0 /100 WBCs. The refer ence range was not u sed to interpret th is result as normal/abnormal . NRBC x10^3 (test code <0.01 See_Comment [Auto mated = 1312525851) message] The s ystem which generated this result transmitted reference range : 10*3/?L. The reference range was not used to interpret this result as normal/abnormal . GRAN MAT (NEUT) % 41.0 % (test code = 770-8) IMM GRAN % (test code 0.20 % = 6011113961) LYMPH % (test code = 37.1 % 736-9) MONO % (test code = 15.7 % 5905-5) EOS % (test code = 5.0 % 713-8) BASO % (test code = 1.0 % 706-2) GRAN MAT x10^3(ANC) 2.03 10*3/uL 1.99-6.95 (test code = 2408929149) IMM GRAN x10^3 (test <0.03 0.00-0.06 code = 0613022666) LYMPH x10^3 (test code 1.84 10*3/uL 1.09-3.23 = 731-0) MONO x10^3 (test code 0.78 10*3/uL 0.36-1.02 = 742-7) EOS x10^3 (test code = 0.25 10*3/uL 0.06-0.53 711-2) BASO x10^3 (test code 0.05 10*3/uL 0.01-0.09 = 704-7) Lab Interpretation Abnormal (test code = 08867-9) [facility] WITH [id number] 19:14:50 Test Item Value Reference Range Interpretation Comments WBC (test code = See_Comment L [Automated 6690-2) message] The sy stem which [...] as normal/abnormal . HGB (test code = 11.7 g/dL 12.2-16.4 L 718-7) HCT (test code = 34.1 % 38.4-49.3 L 4544-3) MCV (test code = 102.4 fL 81.7-95.6 H 787-2) MCH (test code = 35.1 pg 26.1-32.7 H 785-6) MCHC (test code = 34.3 g/dL 31.2-35.0 786-4) RDW-SD (test code = 55.8 fL 38.5-51.6 H 09704-6) RDW-CV (test code = 14.8 % 12.1-15.4 788-0) PLT (test code = See_Comment L [Automated 777-3) message] The sy stem which generated this result transmitted reference range : 150 - 328 10*3/ ?L. The reference r raul was not used to interpret this result as normal/abnormal . MPV (test code = 10.1 fL 9.8-13.0 11235-4) IPF % (test code = 1.8 % 1.2-10.7 Platelet count 2421188370) measured by fluorescence method. NRBC/100 WBC (test See_Comment [Automat ed code = 2298107860) message] The system which generated this result transmitted reference range : 0.0 - 10.0 /100 WBCs. The refer ence range was not u sed to interpret th is result as normal/abnormal . NRBC x10^3 (test code <0.01 See_Comment [Auto mated = 4100588246) message] The s ystem which generated this result transmitted reference range : 10*3/?L. The reference range was not used to interpret this result as normal/abnormal . GRAN MAT (NEUT) % 47.4 % (test code = 770-8) IMM GRAN % (test code 0.30 % = 2790780911) LYMPH % (test code = 31.8 % 736-9) MONO % (test code = 15.4 % 5905-5) EOS % (test code = 3.6 % 713-8) BASO % (test code = 1.5 % 706-2) GRAN MAT x10^3(ANC) 1.85 10*3/uL 1.99-6.95 L (test code = 8711020065) IMM GRAN x10^3 (test <0.03 0.00-0.06 code = 4838602745) LYMPH x10^3 (test code 1.24 10*3/uL 1.09-3.23 = 731-0) MONO x10^3 (test code 0.60 10*3/uL 0.36-1.02 = 742-7) EOS x10^3 (test code = 0.14 10*3/uL 0.06-0.53 711-2) BASO x10^3 (test code 0.06 10*3/uL 0.01-0.09 = 704-7) PLT ESTIMATE (test Decreased Normal A code = 9317-9) Lab Interpretation Abnormal (test code = 90436-2) [facility] / [id number] 18:59:44 Test Item Value Reference Range Interpretation Comments [...] tions. Lab Interpretation (test Abnormal code = 08045-1) [facility] [id number] 17:57:36 Test Item Value Reference Interpretation Comments Range TROPONIN I (test 0.008 ng/mL See_Comment [Automated code = 8753320657) message] The system which generated this result [...] biotin. Lab Interpretation Normal (test code = 79015-7) [facility] [id number] 17:54:34 Test Item Value Reference Range Interpretation Comments NT-proBNP (test code 183 pg/mL See_Comment H [Autom ated = 0821645134) message] The system which generated this result transmitted reference range : <=125. The reference range was not used to interpret this result as normal/abnormal . ROBERT (test code = ROBERT) Biotin has been reported to cause a negative bias, interpret results relative to patient's use of biotin. Lab Interpretation Abnormal (test code = 68934-7) [facility] FUN[facility] PAN[facility] (69895) (ALB,T.PRO,BILI T,BU/BC,ALT,AST,ALK PHOS)2021-11-14 17:45:53 Test Item Value Reference Range Interpretation Comments TOTAL BILI (test code = 9155626281) 5.8 mg/dL 0.1-1.1 H BILI UNCON (test code = 5191089246) 2.3 mg/dL 0.1-1.1 H BILI CONJ (test code = 2437875459) 0.7 mg/dL 0.0-0.3 H T PROTEIN (test code = 2444055110) 8.1 g/dL 6.3-8.2 ALBUMIN (test code = 1112428827) 3.5 g/dL 3.5-5.0 ALK PHOS (test code = 7444087925) 310 U/L 34-122 H ALTv (test code = 1742-6) 41 U/L 5-50 AST(SGOT) (test code = 6035072007) 145 U/L 13-40 H Lab Interpretation (test code = Abnormal 71119-3) [facility]OL[facility] (NA, K, CL, CO2, GLUCOSE, BUN, CREATININE, CA)2021-11-14 17:45:33 Test Item Value Reference Range Interpretation Comments NA (test code = 139 mmol/L 135-145 7210610254) K (test code = 3.4 mmol/L 3.5-5.0 L 3918239977) CL (test code = 105 mmol/L 98-108 1586868600) CO2 TOTAL (test code = 22 mmol/L 23-31 L 9742470753) AGAP (test code = 2-16 8948437614) BUN (test code = 6 mg/dL 7-23 L 0725993730) GLUCOSE (test code = 99 mg/dL 70-110 3051180714) CREATININE (test code = 0.81 mg/dL 0.60-1.25 3120600572) CALCIUM (test code = 7.8 mg/dL 8.6-10.6 L 5948771937) eGFR (test code = mL/min/1.73m2 4368595779) ROBERT (test code = ROBERT) Association of [...] tests). Lab Interpretation Abnormal (test code = 68046-2) [facility]2022-[facility]-21 17:45:32 Test Item Value Reference Range Interpretation Comments LIPASE (test code = 7100297334) 189 U/L 0-220 Lab Interpretation (test code = Normal 30540-0) [facility] blood hemoglobin measurement (mass/volume)2020-04-01 00:15:00 Test Item Value Reference Range Interpretation Comments Bedside Hemoglobin (test code = 13.9 g/dL 13.0-17.5 87925-3) [facility] blood hematocrit (volume fraction)2020-04-01 00:15:00 Test Item Value Reference Range Interpretation Comments Bedside Hematocrit (test code = 41.0 % 40.0-53.0 11180-5) [facility] sodium [facility] (moles/volume)2020-04-01 00:15:00 Test Item Value Reference Range Interpretation Comments Bedside Sodium (test code = 136 mmol/L 136-145 99892-9) [facility] blood potassium measurement (moles/volume)2020-04-01 00:15:00 Test Item Value Reference Range Interpretation Comments Bedside Potassium (test code = 3.8 mmol/L 3.5-5.1 12309-0) [facility] HealthVenous whole blood chloride measurement (moles/volume)2020-04-01 00:15:00 Test Item Value Reference Range Interpretation Comments Bedside Chloride (test code = 101 mmol/L 100-112 56100-8) [facility] total carbon dioxide measurement (moles/volume)2020-04-01 00:15:00 Test Item Value Reference Range Interpretation Comments Bedside Total CO2 (test code = 23.0 mmol/L 24.0-33.0 2026-08) [facility] blood urea nitrogen (BUN) measurement (mass/volume) 2020-04-01 00:15:00 Test Item Value Reference Range Interpretation Comments Bedside Blood Urea Nitrogen (test 12 mg/dL -20 code = 24773-1) [facility] (mass/volume)2020-04-01 00:15:00 Test Item Value Reference Range Interpretation Comments Bedside Creatinine (test code = 2.1 mg/dL 0.9-1.5 32521-3) [facility] blood glucose measurement (mass/volume)2020-04-01 00:15:00 Test Item Value Reference Range Interpretation Comments Bedside Glucose (test code = 99 mg/dL 60-100 65846-4) [facility] ionized calcium measurement (moles/volume)2020-04-01 00:15:00 Test Item Value Reference Range Interpretation Comments Bedside Whole Blood Ionized 0.99 mmol/L 1.12-1.32 Calcium (test code = 1994-3) [facility] anion [id number] 00:15:00 Test Item Value Reference Range Interpretation Comments Bedside Anion Gap (test code = 04874-2) 17 8-18 [facility] estimate [id number] 00:15:00 Test Item Value Reference Range Interpretation Comments Estimat Glomerular Filtration Rate 37 73-125 (test code = 47336-6) [facility] whole blood sodium measurement (moles/volume)2020-04-01 00:15:00 Test Item Value Reference Range Interpretation Comments Bedside Sodium (test code = 136 mmol/L 75926-8) Venous whole blood potassium measurement (moles/volume)2020-04-01 00:15:00 Test Item Value Reference Range Interpretation Comments Bedside Potassium (test code = 3.8 mmol/L 95321-8) Venous whole blood chloride measurement (moles/volume)2020-04-01 00:15:00 Test Item Value Reference Range Interpretation Comments Bedside Chloride (test code = 101 mmol/L 74278-5) Venous whole blood total carbon dioxide measurement (moles/volume)2020-04-01 00:15:00 Test Item Value Reference Range Interpretation Comments Bedside Total CO2 (test code = 23.0 mmol/L 2027-1) Venous whole blood urea nitrogen (BUN) measurement (mass/volume)2020-04-01 00:15:00 Test Item Value Reference Range Interpretation Comments Bedside Blood Urea Nitrogen (test 12 mg/dL code = 64860-4) Blood creatinine measurement (mass/volume)2020-04-01 00:15:00 Test Item Value Reference Range Interpretation Comments Bedside Creatinine (test code = 2.1 mg/dL 45689-1) Venous whole blood glucose measurement (mass/volume)2020-04-01 00:15:00 Test Item Value Reference Range Interpretation Comments Bedside Glucose (test code = 99 mg/dL 99367-6) Whole blood ionized calcium measurement (moles/volume)2020-04-01 00:15:00 Test Item Value Reference Range Interpretation Comments Bedside Whole Blood Ionized 0.99 mmol/L Calcium (test code = 1994-3) Blood anion [id number] 00:15:00 Test Item Value Reference Range Interpretation Comments Bedside Anion Gap (test code = 56093-4) 17 GFR estimate [id number] 00:15:00 Test Item Value Reference Range Interpretation Comments Estimat Glomerular Filtration Rate 37 (test code = 64598-7) Venous blood hemoglobin measurement (mass/volume)2020-04-01 00:15:00 Test Item Value Reference Range Interpretation Comments Bedside Hemoglobin (test code = 13.9 g/dL 17807-6) Venous blood hematocrit (volume fraction)2020-04-01 00:15:00 Test Item Value Reference Range Interpretation Comments Bedside Hematocrit (test code = 41.0 % 21024-7) Venous blood lactic acid measurement (moles/volume)2020-04-01 00:10:00 Test Item Value Reference Range Interpretation Comments Bedside Lactic Acid Venous (test 1.74 mmol/L 0.50-2.20 code = 2519-7) [facility] blood lactic acid measurement (moles/volume)2020-04-01 00:10:00 Test Item Value Reference Range Interpretation Comments Bedside Lactic Acid Venous (test 1.74 mmol/L code = 2519-7) Automated blood leukocyte count (number/volume)2020-03-31 11:50:00 Test Item [...] HealthAutomated erythrocyte mean corpuscular hemoglobin concentration measurement (mass/[id number] 11:50:00 Test Item Value Reference Range Interpretation Comments Mean Corpuscular Hemoglobin Concent 34.7 g/dL 33.0-37.0 (test code = 786-4) [facility] Health[facility]ated erythrocyte distribution width [id number] 11:50:00 Test Item Value Reference Range Interpretation Comments Red Cell Distribution Width (test code 12.8 % 10.7-14.5 = 788-0) [facility] HealthAutomated blood platelet count (count/volume)2020-03-31 11:50:00 Test Item Value Reference Range Interpretation Comments Platelet Count (test code = 105 10*3/uL 150-450 777-3) [facility] HealthAutomated blood platelet mean volume [id number] 11:50:00 Test Item Value Reference Range Interpretation Comments Mean Platelet Volume (test code = 10.1 fL 5.7-10.7 61795-8) [facility] comment [id number] 11:50:00 Test Item Value Reference Range Interpretation Comments Manual Differential (test code = ----- 8265-1) [facility] HealthManual blood segmented neutrophils/100 oxdrxvfoej7808-12-18 11:50:00 Test Item Value Reference Range Interpretation Comments Neutrophils % (Manual) (test code = 61 % 42-75 769-0) [facility] HealthManual blood lymphocytes/100 ttjdkvlqeq1869-58-83 11:50:00 Test Item Value Reference Range Interpretation Comments Lymphocytes % (Manual) (test code = 23 % 21-51 737-7) [facility] HealthManual blood monocytes/100 ntyregclrk8713-55-73 11:50:00 Test Item Value Reference Range Interpretation Comments Monocytes % (Manual) (test code = 14 % 1-9 744-3) [facility] HealthManual blood eosinophil count as percentage of total leukocytes 2020-03-31 11:50:00 Test Item Value Reference Range Interpretation Comments Eosinophils % (Manual) (test code = 2 % 0-7 714-6) [facility] HealthBlood platelet detection by light noxvutzico3663-72-94 11:50:00 Test Item Value Reference Range Interpretation Comments Platelet Estimate (test code = Decreased 9317-9) [facility] HealthBlood erythrocyte morphology finding tsihmzaagudkch4306-85-60 11:50:00 Test Item Value Reference Range Interpretation [...] Dioxide Level (test code = 19 mmol/L -2027-) [facility] HealthSerum or plasma anion gap determination (moles/volume)2020-03-31 11:50:00 Test Item Value Reference Range Interpretation Comments Anion Gap (test code = 19834-6) 18 8-18 [facility] HealthSerum or plasma urea nitrogen measurement (mass/volume)2020-03-31 11:50:00 Test Item Value Reference Range Interpretation Comments Blood Urea Nitrogen (test code = 11 mg/dL 05-17 3094-0) [facility] HealthSerum or plasma creatinine measurement (mass/volume)2020-03-31 11:50:00 Test Item Value Reference Range Interpretation Comments Creatinine (test code = 2160-0) 1.8 mg/dL 0.7-1.3 [facility] HealthGFR estimate [id number] 11:50:00 Test Item Value Reference Range Interpretation Comments Estimat Glomerular Filtration Rate 44 73-125 (test code = 95634-7) [facility] HealthSerum or plasma urea nitrogen/creatinine mass gxunm6064-89-74 11:50:00 Test Item Value Reference Range Interpretation Comments BUN/Creatinine Ratio (test code = 6 3097-3) [facility] HealthSerum or plasma glucose measurement (mass/volume)2020-03-31 11:50:00 Test Item Value Reference Range Interpretation Comments Glucose Level (test code = 2345-7) 98 mg/dL 60-100 [facility] HealthOsmolality of Serum or Plasma by ctezrkssivr1598-13-75 11:50:00 Test Item Value Reference Range Interpretation Comments Calculated Osmolality (test code 269 mosm/kg = 17963-9) [facility] HealthSerum or plasma calcium measurement (mass/volume)2020-03-31 11:50:00 Test Item Value Reference Range Interpretation Comments Calcium Level (test code = 99547-3) 7.8 mg/dL 8.4-10.2 [facility]Serum or plasma total bilirubin measurement (mass/volume) 2020-03-31 11:50:00 Test Item Value Reference Range Interpretation Comments Total Bilirubin (test code = 0.8 mg/dL 0.2-1.2 1974-2) [facility] HealthSerum or plasma total combined glucuronidated bilirubin and albumin bound bilirubin measurement (mass/volume)2020-03-31 11:50:00 Test Item Value Reference Range Interpretation Comments Direct Bilirubin (test code = 0.4 mg/dL 0.0-0.5 1967-7) [facility] HealthSerum or plasma aspartate aminotransferase measurement [...] Range Interpretation Comments Globulin (test code = 79981-1) 3.5 g/dL [facility] HealthSerum or plasma albumin/globulin mass [id number] 11:50:00 Test Item Value Reference Range Interpretation [...] Lipase (test code = 3040-3) 299 U/L [facility] HealthAutomated blood leukocyte count (number/volume)2020-03-31 11:50:00 Test Item Value Reference Range Interpretation Comments White Blood Count (test code = 11.4 10*3/uL 6690-2) Blood erythrocytes automated count (number/volume)2020-03-31 11:50:00 Test Item Value Reference Range Interpretation Comments Red Blood Count (test code = 4.25 10*6/uL 789-8) Blood hemoglobin measurement (mass/volume)2020-03-31 11:50:00 Test Item Value Reference Range Interpretation Comments Hemoglobin (test code = 718-7) 14.5 g/dL Automated blood hematocrit (volume fraction)2020-03-31 11:50:00 Test Item Value Reference Range Interpretation Comments Hematocrit (test code = 4544-3) 41.8 % Automated erythrocyte mean corpuscular volume (MCV) uajdypdvwyb0281-47-85 11:50:00 Test Item Value Reference Range Interpretation Comments Mean Corpuscular Volume (test code = 98.4 fL 787-2) Automated erythrocyte mean corpuscular hemoglobin (mass per erythrocyte) 2020-03-31 11:50:00 Test Item Value Reference Range Interpretation Comments Mean Corpuscular Hemoglobin (test 34.1 pg code = 785-6) Automated erythrocyte mean corpuscular hemoglobin concentration measurement (mass/vfr4396-69-97 11:50:00 Test Item Value Reference Range Interpretation Comments Mean Corpuscular Hemoglobin Concent 34.7 g/dL (test code = 786-4) Automated erythrocyte distribution width svvbf8725-11-63 11:50:00 Test Item Value Reference Range Interpretation Comments Red Cell Distribution Width (test code 12.8 % = 788-0) Automated blood platelet count (count/volume)2020-03-31 11:50:00 Test Item Value Reference Range Interpretation Comments Platelet Count (test code = 105 10*3/uL 777-3) Automated blood platelet mean volume aqcgixhmzvj7359-39-88 11:50:00 Test Item Value Reference Range Interpretation Comments Mean Platelet Volume (test code = 10.1 fL 37223-4) Service comment 11:50:00 Test Item Value Reference Range Interpretation Comments Manual Differential (test code = ----- 8265-1) Manual blood segmented neutrophils/100 gdwfajpdkb9831-14-86 11:50:00 Test Item Value Reference Range Interpretation Comments Neutrophils % (Manual) (test code = 61 % 769-0) Manual blood lymphocytes/100 allzhzylpe3756-40-69 11:50:00 Test Item Value Reference Range Interpretation Comments Lymphocytes % (Manual) (test code = 23 % 737-7) Manual blood monocytes/100 wadkbbksrc2472-77-39 11:50:00 Test Item Value Reference Range Interpretation Comments Monocytes % (Manual) (test code = 14 % 744-3) Manual blood eosinophil count as percentage of total kfktspmcwg0995-66-48 11:50:00 Test Item Value Reference Range Interpretation Comments Eosinophils % (Manual) (test code = 2 % 714-6) Blood platelet detection by light bcipqurnwm1029-77-40 11:50:00 Test Item Value Reference Range Interpretation Comments Platelet Estimate (test code = Decreased 9317-9) Blood erythrocyte morphology finding swlsfqtcyttcai3208-62-35 11:50:00 Test Item Value Reference Range Interpretation Comments Red Blood Cell Morphology (test code = Normal 6742-1) Serum or plasma sodium measurement (moles/volume)2020-03-31 11:50:00 Test Item Value Reference Range Interpretation Comments Sodium Level (test code = 2951-2) 135 mmol/L Serum or plasma potassium measurement (moles/volume)2020-03-31 11:50:00 Test Item Value Reference Range Interpretation Comments Potassium Level (test code = 3.7 mmol/L 2823-3) Serum or plasma chloride measurement (moles/volume)2020-03-31 11:50:00 Test Item Value Reference Range Interpretation Comments Chloride Level (test code = 102 mmol/L 2075-0) Serum or plasma total carbon dioxide measurement (moles/volume)2020-03-31 11:50:00 Test Item Value Reference Range Interpretation Comments Carbon Dioxide Level (test code = 19 mmol/L 2028-04) Serum or plasma anion gap determination (moles/volume)2020-03-31 11:50:00 Test Item Value Reference Range Interpretation Comments Anion Gap (test code = 92196-0) 18 Serum or plasma urea nitrogen measurement (mass/volume)2020-03-31 11:50:00 Test Item Value Reference Range Interpretation Comments Blood Urea Nitrogen (test code = 11 mg/dL 3094-0) Serum or plasma creatinine measurement (mass/volume)2020-03-31 11:50:00 Test Item Value Reference Range Interpretation Comments Creatinine (test code = 2160-0) 1.8 mg/dL GFR estimate [id number] 11:50:00 Test Item Value Reference Range Interpretation Comments Estimat Glomerular Filtration Rate 44 (test code = 90968-9) Serum or plasma urea nitrogen/creatinine mass [id number] 11:50:00 Test Item Value Reference Range Interpretation Comments BUN/Creatinine Ratio (test code = 6 3097-3) Serum or plasma glucose measurement (mass/volume)2020-03-31 11:50:00 Test Item Value Reference Range Interpretation Comments Glucose Level (test code = 2345-7) 98 mg/dL Osmolality of Serum or Plasma by emkqwxvfurw6044-52-08 11:50:00 Test Item Value Reference Range Interpretation Comments Calculated Osmolality (test code 269 mosm/kg = 91712-6) Serum or plasma calcium measurement (mass/volume)2020-03-31 11:50:00 Test Item Value Reference Range Interpretation Comments Calcium Level (test code = 24642-0) 7.8 mg/dL Serum or plasma total bilirubin measurement (mass/volume)2020-03-31 11:50:00 Test Item Value Reference Range Interpretation Comments Total Bilirubin (test code = 0.8 mg/dL 1974-09) Serum or plasma total combined glucuronidated bilirubin and albumin bound bilirubin measurement (mass/volume)2020-03-31 11:50:00 Test Item Value Reference Range Interpretation Comments Direct Bilirubin (test code = 0.4 mg/dL 1968-02) Serum or plasma aspartate aminotransferase measurement (enzymatic activity/volume)2020-03-31 11:50:00 Test Item Value Reference Range Interpretation Comments Aspartate Amino Transf (AST/SGOT) 67 U/L (test code = 1920-8) Serum or plasma alanine aminotransferase measurement (enzymatic activity/volume) 2020-03-31 11:50:00 Test Item Value Reference Range Interpretation Comments Alanine Aminotransferase (ALT/SGPT) 42 U/L (test code = 1742-6) Serum or plasma protein measurement (mass/volume)2020-03-31 11:50:00 Test Item Value Reference Range Interpretation Comments Total Protein (test code = 2885-2) 7.5 g/dL Serum or plasma albumin measurement (mass/volume)2020-03-31 11:50:00 Test Item Value Reference Range Interpretation Comments Albumin (test code = 1751-7) 4.0 g/dL Serum globulin measurement by calculation (mass/volume)2020-03-31 11:50:00 Test Item Value Reference Range Interpretation Comments Globulin (test code = 92024-7) 3.5 g/dL Serum or plasma albumin/globulin mass tepap6992-45-74 11:50:00 Test Item Value Reference Range Interpretation Comments Albumin/Globulin Ratio (test code = 1.1 1759-0) Serum or plasma alkaline phosphatase measurement (enzymatic activity/volume) 2020-03-31 11:50:00 Test Item Value Reference Range Interpretation Comments Alkaline Phosphatase (test code = 71 U/L 6768-6) Serum or plasma lipase measurement (enzymatic activity/volume)2020-03-31 11:50:00 Test Item Value Reference Range Interpretation Comments Lipase (test code = 3040-3) 299 U/L Urinalysis specimen collection [id number] 02:48:00 Test Item Value Reference Range Interpretation Comments Urine Source (test code = 59675-5) URINE [facility] Health[facility]rine color skwmmmqkfbjsg8531-77-13 02:48:00 Test Item Value Reference Range Interpretation Comments Urine Color (test code = 5778-6) Yellow Yel-Dyan * [facility] HealthUrine clarity zahkxjyyhiwef2540-96-59 02:48:00 Test Item Value Reference Range Interpretation Comments Urine Appearance (test code = 17597-7) Clear Clear * [facility] HealthUrine pH measurement by automated test ejmdg0734-57-21 02:48:00 Test Item Value Reference Range Interpretation Comments Urine pH (test code = 17538-5) 5.0 5.0-8.0 [facility] HealthSpecific gravity of Urine by Automated test axaat1446-38-27 02:48:00 Test Item Value Reference Range Interpretation Comments Urine Specific [place] (test code = 1.020 1.005-1.030 91580-3) [facility] HealthUrine protein measurement by automated test strip (mass/volume) 2020-03-31 02:48:00 Test Item Value Reference Range Interpretation Comments Urine Protein (test code = 28476-5) 100 mg/dL Negative * [facility] HealthUrine glucose measurement by automated test strip (mass/volume) 2020-03-31 02:48:00 Test Item Value Reference Range Interpretation Comments Urine Glucose (UA) (test code Negative mg/dL Negative * = 98958-3) [facility] HealthUrine ketones measurement by automated test strip (mass/volume) 2020-03-31 02:48:00 Test Item Value Reference Range Interpretation Comments Urine Ketones (test code = 96493-3) 15 mg/dL Negative * [facility] HealthUrine erythrocytes count by automated test strip (number/volume) 2020-03-31 02:48:00 Test Item Value Reference Range Interpretation Comments Urine Occult Blood (test Negative {Butch}/uL Negative * code = 55837-2) [facility] HealthUrine nitrite detection by automated test krson2044-09-49 02:48:00 Test Item Value Reference Range Interpretation Comments Urine Nitrite (test code = 27500-2) Negative Negative [facility]rine total bilirubin measurement by automated test strip (mass/volume)2020-03-31 02:48:00 Test Item Value Reference Range Interpretation Comments Urine Bilirubin (test code = 25584-1) 1 mg/dL Negative [facility] HealthConfirmatory urine bilirubin ojhshdjkdgv2130-06-50 02:48:00 Test Item Value Reference Range Interpretation Comments Urine Ictotest (test code = 24825-6) Positive Negative [facility] HealthUrine urobilinogen measurement by automated test strip (mass/volume)2020-03-31 02:48:00 Test Item Value Reference Range Interpretation Comments Urine Urobilinogen (test code = 4.0 mg/dL 0.0-1.0 89720-5) [facility]Urine leukocytes count by automated test strip (number/volume) 2020-03-31 02:48:00 Test Item Value Reference Range Interpretation Comments Urine Leukocyte Esterase (test 25 {Zohaib}/uL Negative code = 76669-9) [facility] HealthMicroscopic examination of kkohg3726-96-48 02:48:00 Test Item Value Reference Range Interpretation Comments Microscopic Urinalysis (T) (test code = ----- 01802-1) [facility] HealthUrine sediment erythrocyte count by microscopy (number/high power field)2020-03-31 02:48:00 Test Item Value Reference Range Interpretation Comments Urine RBC (test code = None Seen /[HPF] 0-2 89275-7) [facility] HealthUrine sediment leukocyte count by microscopy [...] code = None Seen /[HPF] None * 18372-6) [facility] HealthAmorphous sediment detection in urine sediment by light [id number] 02:48:00 Test Item Value Reference Range Interpretation [...] (test 6-10 /[LPF] None * code = 07448-6) [facility] HealthYeast detection in urine sediment by light fbgsnctpjx8258-99-31 02:48:00 Test Item Value Reference Range Interpretation Comments Urine Yeast (test code = None Seen /[HPF] None 75669-6) [facility] comment 02:48:00 Test Item Value Reference Range Interpretation Comments Urinalysis Comment (test * See_Comment [A utomated message] The code = 8262-8) system which generated this result tra nsmitted reference range : *. The reference range was not used to interpr et this result as normal/abnormal . [facility] 02:48:00 Test Item Value Reference Range Interpretation Comments Urine Culture Indicated (test code = Not Ind 8264-4) [facility] HealthUrinalysis specimen collection nwzfab4879-27-78 02:48:00 Test Item Value Reference Range Interpretation Comments Urine Source (test code = 08893-1) URINE Urine color qshrvnqnjczoo8663-33-67 02:48:00 Test Item Value Reference Range Interpretation Comments Urine Color (test code = 5778-6) Yellow Urine clarity xzudlgjyaeiwo8854-09-11 02:48:00 Test Item Value Reference Range Interpretation Comments Urine Appearance (test code = 71097-7) Clear Urine pH measurement by automated test erbey0743-76-64 02:48:00 Test Item Value Reference Range Interpretation Comments Urine pH (test code = 37517-4) 5.0 Specific gravity of Urine by Automated test kodfv0416-25-40 02:48:00 Test Item Value Reference Range Interpretation Comments Urine Specific [place] (test code = 1.020 28342-1) Urine protein measurement by automated test strip (mass/volume)2020-03-31 02:48:00 Test Item Value Reference Range Interpretation Comments Urine Protein (test code = 17575-8) 100 mg/dL Urine glucose measurement by automated test strip (mass/volume)2020-03-31 02:48:00 Test Item Value Reference Range Interpretation Comments Urine Glucose (UA) (test code Negative mg/dL = 56728-7) Urine ketones measurement by automated test strip (mass/volume)2020-03-31 02:48:00 Test Item Value Reference Range Interpretation Comments Urine Ketones (test code = 96149-9) 15 mg/dL Urine erythrocytes count by automated test strip (number/volume)2020-03-31 02:48:00 Test Item Value Reference Range Interpretation Comments Urine Occult Blood (test Negative {Butch}/uL code = 36711-7) Urine nitrite detection by automated test [id number] 02:48:00 Test Item Value Reference Range Interpretation Comments Urine Nitrite (test code = 42765-2) Negative Urine total bilirubin measurement by automated test strip (mass/volume) 2020-03-31 02:48:00 Test Item Value Reference Range Interpretation Comments Urine Bilirubin (test code = 44121-7) 1 mg/dL Confirmatory urine bilirubin gpqiapjoxlo4467-81-07 02:48:00 Test Item Value Reference Range Interpretation Comments Urine Ictotest (test code = 43057-6) Positive Urine urobilinogen measurement by automated test strip (mass/volume)2020-03-31 02:48:00 Test Item Value Reference Range Interpretation Comments Urine Urobilinogen (test code = 4.0 mg/dL 97917-0) Urine leukocytes count by automated test strip (number/volume)2020-03-31 02:48:00 Test Item Value Reference Range Interpretation Comments Urine Leukocyte Esterase (test 25 {Zohaib}/uL code = 14735-5) Microscopic examination of [id number] 02:48:00 Test Item Value Reference Range Interpretation Comments Microscopic Urinalysis (T) (test code = ----- 59220-2) Urine sediment erythrocyte count by microscopy (number/high power field) 2020-03-31 02:48:00 Test Item Value Reference Range Interpretation Comments Urine RBC (test code = None Seen /[HPF] 85813-1) Urine sediment leukocyte count by microscopy (number/high power field)2020-03-31 02:48:00 Test Item Value Reference Range Interpretation Comments Urine WBC (test code = 5821-4) 0-5 /[HPF] Urine sediment epithelial cell count by microscopy (number/high power field) 2020-03-31 02:48:00 Test Item Value Reference Range Interpretation Comments Urine Epithelial Cells (test code Few /[HPF] = 5787-7) Urine sediment crystal count by microscopy (number/high power field)2020-03-31 02:48:00 Test Item Value Reference Range Interpretation Comments Urine Crystals (test code = None Seen /[HPF] 89989-9) Amorphous sediment detection in urine sediment by light yycwayndwt5287-86-57 02:48:00 Test Item Value Reference Range Interpretation Comments Urine Amorphous Sediment Moderate /[HPF] (test code = 8246-1) Urine sediment bacteria count by microscopy (number/high power field)2020-03-31 02:48:00 Test Item Value Reference Range Interpretation Comments Urine Bacteria (test code = None Seen /[HPF] 5769-5) Urine sediment casts count by microscopy (number/low power field)2020-03-31 02:48:00 Test Item Value Reference Range Interpretation Comments Urine Casts (test code = Present /[LPF] 9842-6) Urine sediment hyaline cast count by microscopy (number/low power field) 2020-03-31 02:48:00 Test Item Value Reference Range Interpretation Comments Urine Hyaline Casts (test code = 2-5 /[LPF] 5796-8) Fine granular cast count in urine sediment by microscopy (number/low power field )2020-03-31 02:48:00 Test Item Value Reference Range Interpretation Comments Urine Fine Granular Casts (test 6-10 /[LPF] code = 23522-1) Yeast detection in urine sediment by light ksvveznebt2138-97-48 02:48:00 Test Item Value Reference Range Interpretation Comments Urine Yeast (test code = None Seen /[HPF] 68882-0) Service comment 02:48:00 Test Item Value Reference Range Interpretation Comments Urinalysis Comment (test code = 8262-8) * Service comment 02:48:00 Test Item Value Reference Range Interpretation Comments Urine Culture Indicated (test code = Not Ind 8264-4)"
[2022-09-14] MEDS ORDERED: MORPHINE 4 MG/ML SYR ONE ×2 (17:45→19:41)
[2022-09-14] MEDS ORDERED: ONDANSETRON 4 MG/2 ML VIAL ONE (17:45)
[2022-09-14 18:45] LABS: Absolute Lymphocytes (CBC) 1.7 K/uL (0.7-4.9); Hematocrit 36.8 % (39.6-49.0); Lymphocytes % 41.4 % (15.3-44.8); MCV 94.7 fL (80-100); RBC Red Blood Cell Count 3.89 M/uL (4.33-5.43)
[2022-09-14 18:52] LABS: MPV 8.3 fL (7.6-11.3)
[2022-09-14 18:59] LABS: Potassium 3.5 mmol/L (3.5-5.1)
[2022-09-14] MEDS ORDERED: THIAMINE 200 MG/2 ML INJ ONE (19:41)
[2022-09-14] MEDS ORDERED: PANTOPRAZOLE 40 MG INJ ONE (19:42)
[2022-09-14] MEDS ORDERED: MULTIVITAMINS 10 ML VIAL (INJ) IV ONE (19:42)
[2022-09-14] MEDS ORDERED: FOLIC ACID 5 MG/ML VIAL ONE (19:43)
[2022-09-14] MEDS ORDERED: NA CHLORIDE 0.9% 1,000 ML ONE (19:43)
--- NOTE | 2022-09-14 20:01 | RAD REPORT ---
EXAM DESCRIPTION: CT - Head C Spine Cap W Con - 09/14/2022 7:44 pm CLINICAL HISTORY: Trauma, head and neck injury. Chest, abdomen and pelvis pain. Low back pain status post fall off of a roof (7 feet) COMPARISON: Head C Spine Cap Wo Con dated 04/06/2021 TECHNIQUE: CT head without contrast. CT cervical spine without contrast with coronal and sagittal reformatted images. CT chest, abdomen and pelvis with IV contrast (approximately 100 mL nonionic IV contrast) with ellis l and sagittal reformatted images of the spine. All CT scans are performed using dose optimization technique as appropriate and may include automated exposure control or mA/KV adjustment according to patient size. FINDINGS: CT HEAD WITHOUT CONTRAST: No intracranial hemorrhage, hydrocephalus or extra-axial fluid collection. No areas of brain edema o r midline shift. Mild mucosal thickening of the left maxillary antrum. The calvarium is intact. CT CERVICAL SPINE WITHOUT CONTRAST: No fracture or subluxation. Mild lower cervical degenerative changes. The prevertebral soft tissues a re normal in thickness. CT CHEST, ABDOMEN, PELVIS WITH CONTRAST: The lungs are clear.No pneumothorax or pericardial/pleural fluid. No evidence of intra-abdominal visceral injury, free fluid or free air. Liver cirrhosis is present wi th splenomegaly. Small low-density lesions are seen in the left lobe measuring 11 mm and in the right lobe measuring 18 mm. No concerning pelvic findings. No fractures. IMPRESSION: Negative for acute traumatic findings. Liver cirrhosis noted with small low-density lesions apparent. Nonemergent liver protocol followup wo uld be advised.
[2022-09-14 20:20] LABS: Platelet Estimate DECR; White Blood Cell Scan DIFF (OK)
[2022-09-14 20:21] LABS: Anisocytosis SLIGHT; Blood Morphology Comment NOTED (NOT SEEN)
--- NOTE | 2022-09-14 21:00 | ER ---
Nurse's Notes [facility] Name: Sung Brown Jr Age: 47 yrs Sex: Male : 1975 Arrival Date: 09/14/2022 Time: 17:16 Bed 6 Private MD: Diagnosis: Fall (on) (from) other stairs and steps-roof fall;Alcoholic cirrhosis of liver;Edema, unspecified Presentation: 09/14 17:19 Chief complaint: Patient states: I've had a lot of surgeries on legs and I have iw cirrhosis and today I fell off my roof trying to fix my antenna , he was trying to get back on the ladder when he fell, he hit the porch, fell about 7 foot, landed on his back , happened about four hours , he was able to get himself up and laid on the heating pad and my legs are swollen and also I've been having issues with sores on my legs and also 3 days ago my right shoulder blade started hurting and my fingertips have been numb for past few days. He is having back pain and can;t hardly hold himself up right now , does not know if he hit his head and denies LOC. Care prior to arrival: None. Mechanism of Injury: Fall from roof. Trauma event details: Injury occurred in the [facility], Injury occurred: at home. Injury occurred: September 14, 2022. 17:19 Acuity: CINTIA 3 iw 17:19 Method Of Arrival: Wheelchair iw 17:22 Coronavirus screen: At this time, the client does not indicate any symptoms associated iw with coronavirus-19. Ebola Screen: Patient negative for fever greater than or equal to 101.5 degrees Fahrenheit, and additional compatible Ebola Virus Disease symptoms Patient denies exposure to infectious person. Patient denies travel to an Ebola-affected area in the 21 days before illness onset. No symptoms or risks identified at this time. Initial Sepsis Screen: Does the patient meet any 2 criteria? No. Patient's initial sepsis screen is negative. Does the patient have a suspected source of infection? No. Patient's initial sepsis screen is negative. Risk Assessment: Do you want to hurt yourself or someone else? Patient reports no desire to harm self or others. Onset of symptoms was September 14, 2022. Historical: - Allergies: 17:19 NKDA; iw - PMHx: 17:19 ADD/ADHD; cirrhosis of liver; Hepatitis; COPD; WPW; Hypertension; iw - PSHx: 17:19 multiple orthopedic surgeries; iw Screenin:31 [facility] ED Fall Risk Assessment (Adult) History of falling in the last 3 months, mb9 including since admission Yes- fall prone (multiple falls) (3 pts) Confusion or Disorientation No (0 pts) Intoxicated or Sedated No (0 pts) Impaired Gait Yes (1 pt) Mobility Assist Device Used Yes (1 pt) Altered Elimination No (0 pt) Score/Fall Risk Level 3 or more points = High Risk Oriented to surroundings, Maintained a safe environment, Educated pt \T\ family on fall prevention, incl call for assistance when getting out of bed. Abuse screen: Denies threats or abuse. Nutritional screening: No deficits noted. Tuberculosis screening: No symptoms or risk factors identified. Primary Survey: 17:26 NO uncontrolled hemorrhage observed. A: The client is awake and alert. The airway is ph patent. Breathing/Chest: Spontaneous respiratory effort, equal unlabored respirations, breath sounds clear bilaterally, regular pattern, symmetrical chest rise and fall. Circulation: No external hemorrhage present. Regular and strong central pulse, skin warm/dry/normal color. Disability Pupils are equal, round, reactive to light and accommodation. Client is alert. Exposure/Environment: No obvious injuries are noted at this time. A warming method has been applied: A warm blanket has been provided to the patient. 17:59 Reassessment Alertness and Airway: Awake and alert. The airway is patent. Airway Patent mb9 Trachea Midline Breathing: Spontaneous respiratory effort, equal unlabored respirations, breath sounds clear bilaterally, regular pattern with symmetrical chest rise and fall. Respiratory effort Unlabored Breath sounds Clear Respiratory pattern Regular Circulation: No external hemorrhage noted. Regular and strong central pulse, skin warm/dry/normal color. Heart rhythm Sinus rhythm Heart tones Present Pulses Palpable Color [place] Temperature Warm Disability: Pupils Pupils are equal, round, reactive to light and accomodation. Alert. Secondary Survey: 17:30 Musculoskeletal: Reports pain in anterior aspect of right shoulder. Musculoskeletal: ph Reports pain in back. Assessment: 17:25 Reassessment: Trauma alert called. mb9 18:56 Reassessment: No changes from previously documented assessment. Patient and/or family mb9 updated on plan of care and expected duration. Pain level reassessed. Patient is alert, oriented x 3, equal unlabored respirations, skin warm/dry/pink. Neuro: Pupils are PERRLA. Cardiovascular: Rhythm is regular. 19:34 Reassessment: pt taken to CT via stretcher. mb9 19:56 Reassessment: No changes from previously documented assessment. Patient and/or family mb9 updated on plan of care and expected duration. Pain level reassessed. Patient is alert, oriented x 3, equal unlabored respirations, skin warm/dry/pink. General: Appears in no apparent distress. comfortable, Behavior is calm, cooperative, appropriate for age. Neuro: Pupils are PERRLA. 21:00 Reassessment: Patient appears in no apparent distress at this time. Patient and/or jb4 family updated on plan of care and expected duration. Pain level reassessed. Patient is alert, oriented x 3, equal unlabored respirations, skin warm/dry/pink. d/c pending completion of IV fluids and ride home. Provider notified pt wishes to speak with him. 22:00 Reassessment: Patient appears in no apparent distress at this time. Patient and/or jb4 family updated on plan of care and expected duration. Pain level reassessed. Patient is alert, oriented x 3, equal unlabored respirations, skin warm/dry/pink. 23:00 Reassessment: Patient appears in no apparent distress at this time. Patient and/or jb4 family updated on plan of care and expected duration. Pain level reassessed. Patient is alert, oriented x 3, equal unlabored respirations, skin warm/dry/pink. Vital Signs: 17:18 BP 164 / 87; Pulse 71; Resp 18; Temp 99.0; Pulse Ox 98% on R/A; iw 18:13 BP 138 / 75; Pulse 74; Resp 18; Pulse Ox 99% ; mb9 19:10 BP 143 / 78; Pulse 78; Resp 20; Pulse Ox 100% ; mb9 20:30 BP 148 / 74; Pulse 74; Resp 18; Pulse Ox 99% on R/A; jb4 21:30 BP 160 / 102; Pulse 95; Resp 16; Pulse Ox 98% on R/A; jb4 Quita Coma Score: 17:18 Eye Response: spontaneous(4). Verbal Response: oriented(5). Motor Response: obeys iw commands(6). Total: 15. 18:13 Eye Response: spontaneous(4). Verbal Response: oriented(5). Motor Response: obeys mb9 commands(6). Total: 15. 19:10 Eye Response: spontaneous(4). Verbal Response: oriented(5). Motor Response: obeys mb9 commands(6). Total: 15. Trauma Score (Adult): 17:18 Eye Response: spontaneous(1); Verbal Response: oriented(1); Motor Response: obeys iw commands(2); Systolic BP: > 89 mm Hg(4); Respiratory Rate: 10 to 29 per min(4); Quita Score: 15; Trauma Score: 12 ED Course: 17:16 Patient arrived in ED. rg4 17:22 Triage completed. iw 17:22 Arm band placed on. iw 17:24 Mery Noel, RN is Primary Nurse. mb9 17:32 Placed in gown. Bed in low position. Call light in reach. Side rails up X 1. Client mb9 placed on continuous cardiac and pulse oximetry monitoring. NIBP monitoring applied. sales solutions representative on. Door closed. Noise minimized. Warm blanket given. 17:33 Dom Durant MD is Attending Physician. kdr 17:55 Missed attempt(s): 22 gauge in right antecubital area. Bleeding controlled, band aid ph applied, catheter tip intact. 17:55 Missed attempt(s): 22 gauge in right antecubital area. Bleeding controlled, band aid ph applied, catheter tip intact. 17:55 Patient maintains SpO2 saturation greater than 95% on room air. Response to oxygen ph therapy:. Thermoregulation: warm blanket given to patient. 18:25 Missed attempt(s): 22 gauge in right forearm. mb9 18:40 Basic Metabolic Panel Sent. mb9 18:40 CBC with Diff Sent. mb9 18:40 Type And Screen Sent. mb9 19:07 Attending Physician role handed off by Dom Durant MD supa 19:07 Ganesh Wheeler MD is Attending Physician. supa 19:46 Head C Spine Cap W Con In Process Unspecified. EDMS 20:59 Martha Guzman MD is Referral Physician. supa 23:04 No provider procedures requiring assistance completed. IV discontinued, intact, jb4 bleeding controlled, No redness/swelling at site. Pressure dressing applied. Administered Medications: 18:35 Drug: Zofran (Ondansetron) 4 mg Route: IVP; Site: right antecubital; mb9 19:10 Follow up: Response: No adverse reaction mb9 18:40 Drug: morphine 4 mg Route: IVP; Infused Over: 4 mins; Site: right antecubital; mb9 19:11 Follow up: Response: No adverse reaction mb9 19:36 Drug: ProTONIX (pantoprazole) 40 mg Route: IVP; Site: right antecubital; mb9 20:29 Follow up: Response: No adverse reaction; Marked relief of symptoms pf1 19:42 Drug: morphine 4 mg Route: IVP; Infused Over: 4 mins; Site: right antecubital; mb9 20:35 Follow up: Response: No adverse reaction; Pain is unchanged, physician notified; RASS: pf1 Alert and Calm (0) 19:55 Drug: Thiamine 100 mg Route: IV; Rate: per protocol; Site: right antecubital; mb9 19:55 Drug: Banana Bag - (NS 0.9% 1000 ml, foLIC Acid 1 mg, Thiamine 100 mg, Multivitamin 1 mb9 amp) Route: IV; Rate: 500 ml/hr; Site: right antecubital; 20:29 Follow up: Response: No adverse reaction pf1 Medication: 17:32 VIS not applicable for this client. mb9 Outcome: 20:59 Discharge ordered by . supa 23:04 Discharged to home via wheelchair. jb4 23:04 Condition: stable 23:04 Discharge instructions given to patient, Instructed on discharge instructions, follow up and referral plans. medication usage, Demonstrated understanding of instructions, follow-up care, medications, Prescriptions given X 2. 23:05 Patient left the ED. jb4 Signatures: Dispatcher [employer] EDGanesh Bravo MD MD cha Rittger, Kevin, MD MD kdr Williams, Irene, RN RN iw Hall, Patricia, RN RN ph Garcia, Rubi rg4 Bryson, James, RN RN jb4 Mery Noel RN RN mb9 Jo-Ann marcial RN RN pf1 Corrections: (The following items were deleted from the chart) 17:22 17:18 Pulse 71bpm; Resp 18bpm; Pulse Ox 98% RA; Temp 99.0F; iw iw 17:23 17:19 Chief complaint: Patient states: I've had a lot of surgeries on legs and I have iw cirrhosis and today I fell off my roof trying to fix my antenna , he was trying to get back on the ladder when he fell, he hit the porch, fell about 7 foot, landed on his back , happened about four hours , he was able to get himself up and laid on the heating pad and my legs are swollen and also I've been having issues with sores on my legs and also 3 days ago my right shoulder blade started hurting and my fingertips have been numb for past few days iw 21:30 21:00 Reassessment: Patient appears in no apparent distress at this time. Patient jb4 and/or family updated on plan of care and expected duration. Pain level reassessed. Patient is alert, oriented x 3, equal unlabored respirations, skin warm/dry/pink. d/c pending completion of IV fluids and ride home. jb4
--- NOTE | 2022-09-14 21:00 | EDPHYS ---
Physician Documentation [facility] Name: Sung Brown Jr Age: 47 yrs Sex: Male : 1975 Arrival Date: 09/14/2022 Time: 17:16 Bed 6 Private MD: ED Physician Ganesh Wheeler HPI: 09/14 19:24 This 47 yrs old Male presents to ER via Wheelchair with complaints of Fall supa Injury, Leg Swelling. 19:24 Details of fall: The patient fell from a height, off a roof. supa Historical: - Allergies: 17:19 NKDA; iw - PMHx: 17:19 ADD/ADHD; cirrhosis of liver; Hepatitis; COPD; WPW; Hypertension; iw - PSHx: 17:19 multiple orthopedic surgeries; iw ROS: 19:25 Constitutional: Negative for fever, chills, and weight loss, Eyes: Negative for injury, supa pain, redness, and discharge, ENT: Negative for injury, pain, and discharge, Neck: Negative for injury, pain, and swelling, Cardiovascular: Negative for chest pain, palpitations, and edema, Respiratory: Negative for shortness of breath, cough, wheezing, and pleuritic chest pain, Abdomen/GI: Negative for abdominal pain, nausea, vomiting, diarrhea, and constipation, : Negative for injury, bleeding, discharge, and swelling, Skin: Negative for injury, rash, and discoloration, Neuro: Negative for headache, weakness, numbness, tingling, and seizure, Psych: Negative for depression, anxiety, suicide ideation, homicidal ideation, and hallucinations, Allergy/Immunology: Negative for hives, rash, and allergies, Endocrine: Negative for neck swelling, polydipsia, polyuria, polyphagia, and marked weight changes, Hematologic/Lymphatic: Negative for swollen nodes, abnormal bleeding, and unusual bruising. 19:25 Back: Positive for decreased range of motion, pain at rest, pain with movement. Exam: 19:25 Constitutional: This is a well developed, well nourished patient who is awake, alert, supa and in no acute distress. Head/Face: Normocephalic, atraumatic. Eyes: Pupils equal round and reactive to light, extra-ocular motions intact. Lids and lashes normal. Conjunctiva and sclera are non-icteric and not injected. Cornea within normal limits. Periorbital areas with no swelling, redness, or edema. ENT: Nares patent. No nasal discharge, no septal abnormalities noted. Tympanic membranes are normal and external auditory canals are clear. Oropharynx with no redness, swelling, or masses, exudates, or evidence of obstruction, uvula midline. Mucous membranes moist. Neck: Trachea midline, no thyromegaly or masses palpated, and no cervical lymphadenopathy. Supple, full range of motion without nuchal rigidity, or vertebral point tenderness. No Meningismus. Chest/axilla: Normal chest wall appearance and motion. Nontender with no deformity. No lesions are appreciated. Cardiovascular: Regular rate and rhythm with a normal S1 and S2. No gallops, murmurs, or rubs. Normal PMI, no JVD. No pulse deficits. Respiratory: Lungs have equal breath sounds bilaterally, clear to auscultation and percussion. No rales, rhonchi or wheezes noted. No increased work of breathing, no retractions or nasal flaring. Abdomen/GI: Soft, non-tender, with normal bowel sounds. No distension or tympany. No guarding or rebound. No evidence of tenderness throughout. Male : Normal genitalia with no discharge or lesions. Skin: Warm, dry with normal turgor. Normal color with no rashes, no lesions, and no evidence of cellulitis. Neuro: Awake and alert, GCS 15, oriented to person, place, time, and situation. Cranial nerves II-XII grossly intact. Motor strength 5/5 in all extremities. Sensory grossly intact. Cerebellar exam normal. Normal gait. Psych: Awake, alert, with orientation to person, place and time. Behavior, mood, and affect are within normal limits. 19:25 Back: pain, that is mild, ROM is painful, with all movement, normal spinal alignment noted. Vital Signs: 17:18 BP 164 / 87; Pulse 71; Resp 18; Temp 99.0; Pulse Ox 98% on R/A; iw 18:13 BP 138 / 75; Pulse 74; Resp 18; Pulse Ox 99% ; mb9 19:10 BP 143 / 78; Pulse 78; Resp 20; Pulse Ox 100% ; mb9 20:30 BP 148 / 74; Pulse 74; Resp 18; Pulse Ox 99% on R/A; jb4 21:30 BP 160 / 102; Pulse 95; Resp 16; Pulse Ox 98% on R/A; jb4 Quita Coma Score: 17:18 Eye Response: spontaneous(4). Verbal Response: oriented(5). Motor Response: obeys iw commands(6). Total: 15. 18:13 Eye Response: spontaneous(4). Verbal Response: oriented(5). Motor Response: obeys mb9 commands(6). Total: 15. 19:10 Eye Response: spontaneous(4). Verbal Response: oriented(5). Motor Response: obeys mb9 commands(6). Total: 15. Trauma Score (Adult): 17:18 Eye Response: spontaneous(1); Verbal Response: oriented(1); Motor Response: obeys iw commands(2); Systolic BP: > 89 mm Hg(4); Respiratory Rate: 10 to 29 per min(4); Quita Score: 15; Trauma Score: 12 MDM: 19:08 Patient medically screened. [facility] 19:25 Differential diagnosis: closed head injury, contusion, fracture, multiple trauma, supa sprain, strain. Data reviewed: vital signs, nurses notes, lab test result(s), CBC, electrolytes, hepatic panel, urinalysis. Consideration of Admission/Observation Patient was admitted/placed on observation. Escalation of care including admission/observation considered. I considered the following discharge prescriptions or medication management in the emergency department Medications were administered in the Emergency Department. See MAR. Independent interpretation of the following test(s) in the Emergency Department CT Scan: My interpretation is trauma. Test considered but Not performed: X-ray: x ray legs. Care significantly affected by the following chronic conditions: Hypertension, Chronic Obstructive Pulmonary Disease, Liver Disease. 19:36 Discussion of test interpretation with radiology: I had a discussion with radiology [facility] regarding a test interpretation. CT trauma gram negative. 09/14 17:37 Order name: Basic Metabolic Panel; Complete Time: 19:03 kdr 09/14 17:37 Order name: CBC with Diff; Complete Time: 20:59 kdr 09/14 17:37 Order name: Type And Screen; Complete Time: 19:55 kdr 09/14 20:21 Order name: Manual Differential; Complete Time: 20:59 EDMS 09/14 17:37 Order name: CT Traumagram (Head C Spine CAP W Con) [facility] 09/14 17:41 Order name: Head C Spine Cap W Con; Complete Time: 20:59 EDMS 09/14 20:21 Order name: CBC Smear Scan; Complete Time: 20:59 EDMS 09/14 17:37 Order name: Labs collected and sent; Complete Time: 18:40 kdr Administered Medications: 18:35 Drug: Zofran (Ondansetron) 4 mg Route: IVP; Site: right antecubital; mb9 19:10 Follow up: Response: No adverse reaction mb9 18:40 Drug: morphine 4 mg Route: IVP; Infused Over: 4 mins; Site: right antecubital; mb9 19:11 Follow up: Response: No adverse reaction mb9 19:36 Drug: ProTONIX (pantoprazole) 40 mg Route: IVP; Site: right antecubital; mb9 20:29 Follow up: Response: No adverse reaction; Marked relief of symptoms pf1 19:42 Drug: morphine 4 mg Route: IVP; Infused Over: 4 mins; Site: right antecubital; mb9 20:35 Follow up: Response: No adverse reaction; Pain is unchanged, physician notified; RASS: pf1 Alert and Calm (0) 19:55 Drug: Thiamine 100 mg Route: IV; Rate: per protocol; Site: right antecubital; mb9 19:55 Drug: Banana Bag - (NS 0.9% 1000 ml, foLIC Acid 1 mg, Thiamine 100 mg, Multivitamin 1 mb9 amp) Route: IV; Rate: 500 ml/hr; Site: right antecubital; 20:29 Follow up: Response: No adverse reaction pf1 Disposition Summary: 09/14/22 20:59 Discharge Ordered Location: Home supa Problem: new supa Symptoms: have improved supa Condition: Stable supa Diagnosis - Fall (on) (from) other stairs and steps - roof fall supa - Alcoholic cirrhosis of liver supa - Edema, unspecified supa Followup: supa - With: Private Physician - When: 2 - 3 days - Reason: Recheck today's complaints, Continuance of care, Re-evaluation by your physician Followup: supa - With: - When: 2 - 3 days - Reason: Recheck today's complaints, Re-evaluation by your physician Discharge Instructions: - Discharge Summary Sheet supa - Alcohol Use Disorder supa - Cirrhosis supa - Fall Prevention in the Home, Adult supa - Alcohol Abuse and Nutrition supa - Edema supa - Alcoholic Liver Disease, [id number] supa - Back Injury Prevention supa - Edema, [id number] [facility] Forms: - Medication Reconciliation Form supa - Thank You Letter supa - Antibiotic Education supa - Prescription Opioid Use supa Prescriptions: - Protonix 40 mg Oral Tablet - take 1 tablet by ORAL route once daily; 30 tablet; Refills: 0, Product [facility] Selection Permitted - Spironolactone 25 mg Oral Tablet - take 1 tablet by ORAL route once daily; 30 tablet; Refills: 0, Product [facility] Selection Permitted Signatures: Dispatcher [employer] Ganesh Abdi MD MD cha Rittger, Kevin, MD MD kdr Williams, Irene RN RN iw Anton Hunter, TRUCKMAN-C TRUCKMAN-Cla1 Mery Noel RN RN mb9 Jo-Ann marcial RN pf1
[2022-09-14 23:34] VITALS: TEMP 99
[2022-09-14 23:39] VITALS: BP 160/102; O2SAT 98
== END 2022-09-14 23:05 | disposition home or self-care (01) ==
LOC: ER 17:13
DX: S89.90XA Unspecified injury of unspecified lower leg, initial encounter (principal); R60.9 Edema, unspecified; K70.30 Alcoholic cirrhosis of liver without ascites; W11.XXXA Fall on and from ladder, initial encounter; Y93.89 Activity, other specified; Y92.018 Other place in single-family (private) house as the place of occurrence of the external cause
CPT/HCPCS: 85025; 80048; 36415; 86900; 86850; 86901; 70450; 72125; 71260; 74177; Q9967; J3411; C9113; J7030; J2405

== ENCOUNTER 2022-10-12 15:12 | Emergency (ER) | payer OTHER ==
--- OUTSIDE RECORDS SUMMARY | 2022-10-12 15:18 | XMS REPORT | Continuity of Care Document ---
:1975 Author Organization [facility] t Address [address] [place] [address] Care Team Providers Name Role Phone FOUND, PCP NOT Primary Care Physician Unavailable Jennifer Pope Attending Clinician Unavailable SARKIS ZAMUDIO Attending Clinician Unavailable MEGA DESHPANDE Attending Clinician Unavailable Mega Deshpande MD Attending Clinician CORW MALDONADO Attending Clinician Unavailable LAB90 Attending Clinician Unavailable Sarkis Zamudio DO Attending Clinician Crow Maldonado MD Attending Clinician [phone] Matt GAUGE CONTROLLER, Song Attending Clinician Kiran CELIS, Ivana Attending Clinician Unavailable JO MEJIA Attending Clinician Unavailable Radha BILLINGSLEY, Solomon B Attending Clinician Jo Mejia MD Attending Clinician Ginette Gonzalez Attending Clinician Corbin Rousseau MD Attending Clinician CORBIN ROUSSEAU Attending Clinician Unavailable Deven BURGESS, Angel Attending Clinician Doctor Unassigned, [place] Attending Clinician Unavailable MEGA DESHPANDE Admitting Clinician Unavailable JO MEJIA Admitting Clinician Unavailable Jo Mejia MD Admitting Clinician Corbin Rousseau MD Admitting Clinician CORBIN ROUSSEAU Admitting Clinician Unavailable Payers Payer Name Policy Type Policy Number Effective Date Expiration Date S vanda ROSARIO SILVESTRE DUAL 7 [id number] 2022 COMPLETE 00:00:00 CAP(HMO D-SNP OA) MONCHO SILVESTRE 5 [id number] 2022-08-27 00:00:00 MONCHO CONTRERAS PLS [id number] 2022-08-27 HMO 00:00:00 [place]ICA[place] [id number] 2018-07-27 [place] 00:00:00 [facility] [id number] [facility] MEDICARE [id number] 2004-03-27 [facility] NOVITAS 00:00:00 [facility] Problems Condition Condition Condition Status Onset Resolution Last Treating Co mments Source Name Details Category Date Date Treatment Clinician Date Immunodefi Immunodefi Disease Active K elsey ciency due ciency due 2-16 Se ybold to to 00:00: - conditions conditions 00 Ex terna classified classified l elsewhere elsewhere Fall Fall Disease Active Maribeth 2-16 Seybold 00:00: - 00 Externa l Pain and Pain and Disease Active Kelse y swelling swelling 2-16 Seybol d of right of right 00:00: - lower lower 00 Externa extremity extremity l Oral Oral Disease Active 2021-08 Maribeth candidiasi candidiasi 0-04 Se ybold s s 00:00: - 00 Externa l Congestive Congestive Disease Active K arron heart heart 05-02 Seybold failure, failure, 00:00: - unspecifie unspecifie 00 Ex terna d HF d HF l chronicity chronicity , , unspecifie unspecifie d heart d heart failure failure type type Morbid Morbid Disease Active Maribeth obesity obesity 05-02 Seybold 00:00: - 00 Externa l Coagulatio Coagulatio Disease Active K angelamika n disorder n disorder 05-02 Se ybold 00:00: - 00 Externa l Masses of Masses of Disease Active Art sey both both 05-02 Seybold breasts breasts 00:00: - 00 Externa l Alcohol Alcohol Disease Active Maribeth abuse abuse 05-02 Seybold 00:00: - 00 Externa l History of History of Disease Active Jason angelamika hepatitis hepatitis 05-02 Seyb old C C 00:00: - 00 Externa l Alcoholic Alcoholic Disease Active Art beth liver liver 05-02 [place]bold disease disease 00:00: - 00 Externa l Left foot Left foot Disease Active Art beth drop drop 05-02 Seybold 00:00: - 00 [...] Gastroesop Disease Active Jason heller hageal hageal 9-06 Seybold reflux reflux 00:00: - disease disease 00 Externa without without l esophagiti esophagiti s s Current Current Disease Active Maribeth mild mild 9- Seybold episode of episode of 00:00: - major major 00 Externa depressive depressive l disorder disorder without without prior prior episode episode Gynecomast Gynecomast Disease Active K elsey ia, male ia, male 9 Seybol d 00:00: - 00 Externa l Pneumonia Pneumonia Disease Active Uni vers 3-21 ity of 00:: [place] [facility] NSVT NSVT Disease Active Univers (nonsustai (nonsustai 3-11 it y of karla karla 00:: [place] ventricula ventricula 00 Me dical r r Branch tachycardi tachycardi a) a) Obesity Obesity Disease Active Univers (BMI (BMI 3-10 ity of 30-39.9) 30-39.9) 00:00: [facility] Cigarette Cigarette Disease Active Uni vers smoker smoker 3-10 ity of 00:: [place] [facility] Alcohol Alcohol Disease Active Univers use use 3-10 ity of 00:: [place] [facility] Primary Primary Disease Active Univers hypertensi hypertensi 3-10 it y of on on 00:: [place] [facility] Hypocalcem Hypocalcem Disease Active U nivers ia ia 3-10 ity of 00:: [place] [facility] Chest pain Chest pain Disease Active U nivers in adult in adult 3-09 ity of 00:: [place] [facility] Hypertensi Hypertensi Problem Active C ommon on on Spirit [facility] 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 - [facility] [id number] Anxiety Problem Active [facility] [id number] Alcoholism Problem Active Comm on [facility] Gastroesop GERD Problem Active Commo n hageal (gastroeso Spirit reflux phageal [facility] disease reflux St disease) [facility] Nicotine Nicotine Problem Active Commo n dependence dependence Sp senait - [facility] Alcoholic Alcoholic Problem Active Com mon fatty fatty Spirit liver liver - [facility] [id number] Depression Problem Active Co mmon with Spirit anxiety - [facility] COPD - COPD Problem Active Common Chronic (chronic Spirit obstructiv obstructiv - [facility] e e pulmonary pulmonary [place] disease disease) [facility] Problem Condition [facility] Allergies, Adverse Reactions, Alerts Allergy Allergy Status Severity Reaction(s) Onset Inactive Treating Comm ents Source Name Type Date Date Clinician Lisinopr Propensi Active Other Maribeth il ty to 8-19 reaction( Seybold adverse 00:00: s): - reaction 00 severe Externa s fatigue l NO KNOWN Drug Active Univers ALLERGIE Class ity of S [facility] lisinopr lisinopr Active severe Common il il fatigue Spirit - [facility] Social History Social Habit Start Date Stop Date Quantity Comments Source History of Current Smoker [facility] rit - Tobacco Use [facility] Sex Assigned At [facility] senait - [facility] Exposure to 2022-09-17 2022-09-27 Not sure [facility] SARS-CoV-2 00:00:00 22:49:[address] [facility] (event) Branch Alcohol intake 2022-09-27 2022-09-27 Current drinker Unive rsity of 00:00:00 00:00:[address] [facility] (finding) Branch Tobacco use and 2021-11-02 2021-11-02 Smokeless tobacco Un iversity of exposure 00:00:00 00:00:00 non-user [facility] Education 2021-11-02 2021-11-02 15 University of 00:00:00 00:00:00 [facility] Smoking Status Start Date Stop Date Source Unknown if ever smoked [facility] Smokes tobacco daily 2021-11-02 00:00:00 Univers ity [facility] Medications Ordered Filled Start Stop Current Ordering Indication Dosage Frequency Signature Comments Components Source Medication Medication Date Date Medication? Clinician (SIG) Name Name Nystatin 2022- Yes [id number] Take 5 mL Maribeth (Nystatin) 16 10-20 (500,000 Seyb old [id number] 00:00: 05:59 units - UNIT/ML 00 :00 total) by Externa mouth/throa mouth 4 l t times Suspension daily for 7 days morpHINE (4 Yes 4mg 4 mg, Slow Univers mg/mL) 09-28 IV Push, ity of injection 4 06:32: Q4HPRN, Paul as mg 19 Starting Medical on [place] Branch 09/28/22 at 0032, Until Discontinu ed, Routine, Pain (scale 7-10) ondansetron 2022- No 4mg 4 mg, Slow Univers (ZOFRAN 09-28 IV Push, ity of (PF)) 05:30: 05:45 ONCE, 1 [place] injection 4 00 :00 dose, On Medi dyana mg 09/27/22 Branch at 2330, PHYLLIS morpHINE (4 2022- No 4mg 4 mg, Slow Univers mg/mL) 09-28 IV Push, ity of injection 4 05:30: 05:46 [place] mg [place] :00 dose, On Medical 09/27/22 Branch at 2330, STAT traMADoL Yes [id number] 50mg Take 1 Univers (ULTRAM) 50 -02 tablet by ity of mg tablet 00:00: mouth [place] 00 every 6 Medical (six) Branch hours as needed for Pain (scale 7-10). Indication s: acute pain Tramadol Yes 50mg Q.25D Take 50 mg Ke lsey HCl 2-02 by mouth Seybold (ULTRAM) 50 00:00: every 6 - MG oral 00 hours as Externa Tablet needed l Pantoprazol Yes 40mg Take 40 mg Maribeth e Sodium 40 1-20 by mouth Seyb old MG oral 00:00: daily - Tablet 00 Externa Delayed l Response Spironolact Yes 25mg Take 25 mg Maribeth one 25 MG 1-20 by mouth Seybol d oral Tablet 00:00: daily - 00 Externa l Esomeprazol 2021-08 Yes [id number] 40mg Take 1 Maribeth e Magnesium 0-06 capsule Seybo ld 40 MG oral 00:00: (40 mg - Delayed 00 total) by Externa Release mouth l Capsule every morning (before breakfast) Lorazepam 2021-08 Yes (Schedule K elsey MG oral 0-04 IV Drug) Seybold Tablet 08:11: - 48 Externa l Nicotine 21 2021-08 Yes every 24 Ke lsey MG/24HR 0-04 hours Seybold transdermal 08:11: - PATCH 24 HR 48 Externa l Albuterol 2021-08 Yes by other Priscila ey (PROVENTIL) 0-04 route Seybold (2.5 08:11: - MG/3ML) 48 Externa 0.083% l inhalation Inhalant Solution Budesonide- 2021-08 Yes every 12 Ke lsey Formoterol 0-04 hours Seybold Fumarate 08:11: - 160-4.5 48 Externa MCG/ACT l inhalation Aerosol Folic Acid 2021-08 Yes 1{tbl} Take 1 Art sey 1 MG oral 0-04 tablet by Seybo ld tablet 08:11: mouth - 48 daily Externa l Hydrocort-P 2021-08 Yes by other Luis crouchey ramoxine, 0-04 route Seybold Perianal, 08:11: - (Proctofoam 48 Externa HC) 1-1 % l apply externally Foam Lorazepam 1 2021-08 Yes (Schedule K elsey MG oral 0-04 IV Drug) Seybold Tablet 08:11: - 48 Externa l Nicotine 21 2021-08 Yes every 24 Ke lsey MG/24HR 0-04 hours Seybold transdermal 08:11: - PATCH 24 HR 48 Externa l Albuterol 2021-08 Yes by other Priscila ey (PROVENTIL) 0-04 route Seybold (2.5 08:11: - MG/3ML) 48 Externa 0.083% l inhalation Inhalant Solution Budesonide- 2021-08 Yes every 12 Ke lsey Formoterol 0-04 hours Seybold Fumarate 08:11: - 160-4.5 48 Externa MCG/ACT l inhalation Aerosol Folic Acid 2021-08 Yes 1{tbl} Take 1 Art sey 1 MG oral 0-04 tablet by Seybo ld tablet 08:11: mouth - 48 daily Externa l Hydrocort-P 2021-08 Yes by other Ke lsey ramoxine, 0-04 route Seybold Perianal, 08:11: - (Proctofoam 48 Externa HC) 1-1 % l apply externally Foam Nystatin 2021-08- No [id number] Take 5 mL Maribeth (Nystatin) 0-04 10-12 (500,000 Seyb old [id number] 00:00: 04:59 units - UNIT/ML 00 :00 total) by Externa mouth/throa mouth 4 l t times Suspension daily for 7 days Furosemide Yes [id number] 40mg QD Take 1 K elsey 40 MG oral 9-06 tablet (40 Sey bold Tablet 00:00: mg total) - 00 by mouth Externa daily as l needed (edema) FOR 30 DAYS Esomeprazol Yes [id number] 40mg Take 1 Maribeth e Magnesium 9-06 capsule Seybo ld 40 MG oral 00:00: (40 mg - Delayed 00 total) by Externa Release mouth l Capsule every morning (before breakfast) Thiamine Yes [id number] 100mg Take 1 Ke lsey HCl 100 MG 9-06 tablet Seybold oral Tablet 00:00: (100 mg - 00 total) by Externa mouth l daily Fluoxetine Yes [id number] 20mg Take 1 K elsey HCl 20 MG 9-06 capsule Seybold oral 00:00: (20 mg - Capsule 00 total) by Externa mouth l daily Furosemide Yes [id number] 40mg QD Take 1 K elsey 40 MG oral 9-06 tablet (40 Sey bold Tablet 00:00: mg total) - 00 by mouth Externa daily as l needed (edema) FOR 30 DAYS Thiamine Yes [id number] 100mg Take 1 Ke lsey HCl 100 MG 9-06 tablet Seybold oral Tablet 00:00: (100 mg - 00 total) by Externa mouth l daily Fluoxetine Yes [id number] 20mg Take 1 K elsey HCl 20 MG 9-06 capsule Seybold oral 00:00: (20 mg - Capsule 00 total) by Externa mouth l daily Carvedilol 2021- No [id number] 25mg Take 8 Maribeth (Coreg) 9-06 10-04 tablets Seybold 3.125 MG 00:00: 00:00 (25 mg - oral Tablet 00 :00 total) by Ext lilia mouth in l the morning and 8 tablets (25 mg total) in the evening. Take with meals. spironolact 2021- No [id number] 100mg Take 1 Univers one 100 mg 3-24 04-24 tablet by ity of tablet 00:00: 04:59 mouth [place] 00 :00 daily for Medical 30 days. Branch spironolact 2021- No [id number] 100mg Take 1 Univers one 100 mg 11-17 tablet by ity of tablet 00:00: 04:59 mouth [place] 00 :00 daily for Medical 30 days. Branch levoFLOXaci 2021-0 2021- No [id number] 750mg Take 1 Univers n 750 mg 11-17 tablet by ity o f tablet 00:00: 04:59 mouth [place] 00 :00 daily for Medical 3 days. Branch levoFLOXaci 0 2021- No [id number] 750mg Take 1 Univers n 750 mg 11-17 tablet by ity o f tablet 00:00: [...] for Wheezing or Shortness of Breath. thiamine 2021-2021- No 100mg Take 100 Uni vers 100 mg 11-16 mg by ity of tablet 13:46: 00:00 mouth [place] 01 :00 daily. Medical Branch foLIC acid 2021- No 1mg Take 1 mg U nivers 1 mg tablet 11-16 by mouth ity of 13:46: 00:00 daily. [place] 01 :00 Medical Branch morpHINE 2021-2021- No 2mg 2 mg, Slow Un bill injection 2 3-23 03-23 IV Push, ity of mg 04:15: 03:30 ONCE, 1 [place] 00 :00 dose, On Medical Tue Branch 11/15/21 at 2315, Routine oxazepam 2021- [...] Q12H TAPER, 2 doses, First dose on Sun11/17/21 at 0230, Last dose on Sun11/17/21 at 1430, Routine [Order 2 End] nicotine 14 2021- No [id number] 1{patch Apply 1 Univers mg/24 hr 11-16 } Patch to ity of patch 00:00: 04:59 area(s) [place] 00 :00 every 24 Medical (twenty-fo Branch ur) hours for 30 days. furosemide 2021- No [id number] 40mg Take 1 U nivers 40 mg 11-16 tablet by ity of tablet 00:00: 04:59 mouth [place] 00 :00 every Medical morning Branch and evening for 30 days. nicotine 14 2021- No [id number] 1{patch Apply 1 Univers mg/24 hr 11-16 } Patch to ity of patch 00:00: 04:59 area(s) [place] 00 :00 every 24 Medical (twenty-fo Branch ur) hours for 30 days. furosemide 2021- No [id number] 40mg Take 1 U nivers 40 mg 11-16 tablet by ity of tablet 00:00: 04:59 mouth [place] 00 :00 every Medical morning Branch and evening for 30 days. KCL 2021- No 40meq 40 mEq, Univers (KLOR-CON 11-15 Oral, ity of M20) tablet 14:45: 13:42 [place]CE[place] 1 [place] 40 mEq 00 :00 dose, On Medical [facility] 11/15/21 at 0945, Routine magnesium No 2g 2 g, IV Univ ers sulfate in 11-15 Piggyback, it y of water 2 14:45: 14:45 Administer Paul as gram/50 mL 00 :00 over 60 Medica l (4 %) Minutes, Branch infusion 2 ONCE, 1 g dose, On Sun11/15/21 at 0945, Routine foLIC acid Yes 1mg 1 mg, Univer s (FOLATE) 11-15 Oral, ity of tablet 1 mg 14:00: DAILY, [place] 00 First dose Medical on [facility] 11/15/21 at 0900, Until Discontinu ed, Routine thiamine Yes 100mg 100 mg, Unive rs (VITAMIN 11-15 Oral, ity of B1) tablet 14:00: DAILY, [place] 100 mg 00 First dose Medical on [facility] 11/15/21 at 0900, Until Discontinu ed, Routine levoFLOXaci No 750mg 750 mg, U nivers n 11-15 Oral, ity of (LEVAQUIN) 14:00: 13:59 DAILY, 6 [place] tablet 750 00 :00 doses, Medical mg First dose Branch on Sun11/15/21 at 0900, Last dose on Sun11/20/21 at 0900, PHYLLIS
Re ason for Anti-Infec tive: Documented Infection< br>Documen jocelyn Infection Site: Respirator y
Durat ion of Therapy: 7 days furosemide Yes 40mg 40 mg, Unive rs (LASIX) 11-15 Slow IV ity of injection 13:00: Push, [place] 40 mg 00 Q12H, Medical First dose Branch (after last modificati on) on Sun11/15/21 at 0800, Until Discontinu ed, Routine ipratropium Yes 3mL 3 mL, Unive rs -albuteroL 11-15 Inhalation ity of (DUONEB) 07:27: , QIDPRN, [place] 0.5 mg-3 01 Starting Medical mg(2.[address] [facility] base)/3 mL 11/15/21 at nebulizer 0227, solution [...] at 2315, Until Discontinu ed, Routine LORazepam 2021-0 Yes 1mg 1 mg, Slow Un bill [...] equal to or greater than 100. furosemide 2021-0 2021- No 20mg 20 mg, Univ ers (LASIX) 11-1522 Slow IV ity of injection 01:00: 03:21 Push, [place] 20 mg 00 :23 Q12H, Medical First dose Branch on Sun11/14/21 at 2000, Until Discontinu ed, Routine spironolact 2021-0 Yes 100mg 100 mg, Un bill one 11-14 Oral, ity of (ALDACTONE) 20:15: DAILY, [place] tablet 100 00 First dose Med ical mg on Sun Branch 11/14/21 at 1515, Until Discontinu ed, Routine ondansetron 2021-0 Yes 4mg 4 mg, Slow Univers (ZOFRAN 11-14 IV Push, ity of (PF)) 19:58: Q6HPRN, [place] injection 4 19 Starting Medi dyana mg on Mon Branch 11/14/21 at 1458, Until Discontinu ed, Routine, Nausea and Vomiting (N/V) morpHINE 2021- No 4mg 4 mg, Slow Un bill injection 4 11-14 IV Push, ity of mg 19:58: 19:57 Q4HPRN, [place] 17 :17 Starting Medical on Mon Branch 11/14/21 at 1458, Until Sun11/15/21 at 1457, Routine, Pain (scale 7-10) HYDROcodone 2021-2021- No 1{tbl} 1 tablet, Univers -acetaminop 11-14 Oral, ity of hen (NORCO 19:58: 19:57 Q6HPRN, Paul as 5) 5-325 mg 15 :15 Starting Medi dyana tablet 1 on [facility] Branch tablet 11/14/21 at 1458, Until Sun11/16/21 at 1457, Routine, Pain (scale 4-6) acetaminoph Yes 650mg 650 mg, Un bill en 11-14 Oral, ity of (TYLENOL) 19:58: Q6HPRN, [place] tablet 650 08 Starting Medic al mg on Sun Branch 11/14/21 at 1458, Until Discontinu ed, Routine, Pain (scale 1-3) KCL 2021-2021- No 40meq 40 mEq, Univers (KLOR-CON 11-14 Oral, ity of M20) tablet 19:15: 18:32 ONCE, 1 [place] 40 mEq 00 :00 dose, On Medical Mon Branch 11/14/21 at 1415, PHYLLIS furosemide 2021-0 2021- No 40mg 40 mg, IV U nivers (LASIX) 11-14 Push, ity of injection 19:15: 18:32 ONCE, 1 [place] 40 mg 00 :00 dose, On Medical [facility] Branch 11/14/21 at 1415, PHYLLIS azithromyci 2021- No 500mg 500 mg, IV Univers n 11-14 Piggyback, ity of (ZITHROMAX) 19:00: 19:40 [place]CE[place] 1 [place] 500 mg in 00 :00 dose, On Medica l NaCl 0.9% [facility] Branch (NS) 250 mL 11/14/21 at VIAL-MATE 1400, IV Administer piggyback over 60 Minutes, 250 mL
R stalin for Anti-Infec tive: Empiric Therapy for Suspected Infection< br>Empiric Therapy Site: Respirator y
Durat ion of therapy: 72 hours cefTRIAXone 0 2021- No 1000mg 1,000 mg, Univers (ROCEPHIN) 11-14 IV ity of 1,000 mg in 19:00: 18:30 Piggyback, [place] NaCl 0.9% 00 :00 ONCE, 1 Medical (NS) 50 mL dose, On Branc h MINI-BAG 11/14/21 at 1400, Administer over 30 Minutes, 50 mL
Reas on for Anti-Infec tive: Empiric Therapy for Suspected Infection< br>Empiric Therapy Site: Respirator y
Durat ion of therapy: 72 hours ondansetron 2021-0 202- No 4mg 4 mg, Slow Univers (ZOFRAN 11-14 IV Push, ity of (PF)) 18:45: 17:37 ONCE, 1 [place] injection 4 00 :00 dose, On Medi dyana mg [facility] Branch 11/14/21 at 1345, PHYLLIS morpHINE 2021- No 4mg 4 mg, Slow Un bill injection 4 11-14 IV Push, ity of mg 18:45: 17:37 ONCE, 1 [place] 00 :00 dose, On Medical [facility] Branch 11/14/21 at 1345, STAT No known No Univers medications 11-14 ity of 17:39: [place] 29 [facility] Omeprazole Omeprazole Yes Jennifer 1 capsule Common 1-29 [place] 30 minutes Spirit 00:00: before - [facility] 00 morning [facility] HydrOXYzine HydrOXYzine Yes Jennifer 1 tablet Common HCl HCl 8-20 [place] as needed Spirit 00:00: - [facility] Escitalopra Escitalopra Yes Jennifer 1 tablet Common m Oxalate m Oxalate 7-15 [place] Spir it 00:00: - [facility] 00 [facility] Escitalopra Escitalopra 2018-0 No 1{table QD Escitalopr m Oxalate m Oxalate 7-15 t} am Oxalate 10 MG 10 MG 00:00: 10 MG 00 Proctofoam Proctofoam Yes Jennifer 1 Co mmon HC HC [place] applicatio Spirit n as - [facility] needed [facility] Gabapentin Gabapentin Yes Jennifer TAKE ONE Common [place] CAPSULE BY Spirit MOUTH 3 - [facility]I TIMES A [facility] Losartan Losartan Yes Jenniefr TAKE 1 Comm on Potassium Potassium [place] TABLET BY Spirit MOUTH - [facility]I EVERY DAY [facility] Ventolin Ventolin Yes Jennifer 2 puffs Com mon HFA HFA [place] inhaled Spirit every 4-6 - CHI hours as [facility] Chlordiazep Chlordiazep Yes Jennifer (Schedule Common oxide HCl oxide HCl [place] IV Drug) Spirit TK 1 C PO - [facility] TID [facility] Nicotine Nicotine Yes Jennifer 1 patch to Common [place] skin Spirit - [facility] Carvedilol Carvedilol Yes Jennifer 1 tab(s) 2 Common [place] times a Spirit day orally - [facility] Losartan Losartan No QD Losartan Potassium Potassium Potassium 50 50 50 Gabapentin Gabapentin No Gabapentin 300 MG 300 MG 300 MG Nicotine 21 Nicotine 21 No 1{patch QD Nicotine MG/24HR MG/24HR _to_ski 21 MG/24HR n} Albuterol Albuterol No 3{ml_as TID Albuterol Sulfate [...] (Vitamin Health B-1) 100 Mg TAB Albuterol No 2 [facility] (Proair Hfa S - Inh) 8 [facility] Carvedilol No 25mg [facility] (Coreg) 25 S - Mg TAB [facility] Chlordiazep No 25mg [facility] oxide S - (Librium) [facility] 25 Mg [facility] Fluoxetine No 20mg [facility] Hcl S - (Prozac) 20 [facility] Mg [facility] Folic Acid No 1mg [facility] (Folvite) 1 S - Mg TAB [facility] Losartan No 50mg [facility] Potassium S - (Cozaar) 50 [facility] Mg TAB [facility] Omeprazole No 40mg [facility] (Prilosec) S - 40 Mg CPDR [facility] Thiamine No 100mg [facility] Hcl S - (Vitamin [facility] B-1) 100 Mg Memoria TAB l Hospita l Albuterol Albuterol Yes Jennifer 3 ml as C ommon Sulfate Sulfate [place] needed Spirit - [facility] Esomeprazol Esomeprazol Yes Jennifer TAKE 1 Common e Magnesium e Magnesium [place] CAPSULE BY Spirit MOUTH - [facility]I EVERY DAY [facility] Symbicort Symbicort Yes Jennifer inhale 2 Common [place] puffs by Spirit mouth - [facility]I twice [facility] Viberzi Viberzi Yes Jennifer 1 tablet Comm on [place] with food Spirit - [facility] Immunizations Ordered Filled Immunization Date Status Comments [facility] e Immunization Name Name SARS-COV-2 COVID-19 2021-07-15 Completed Unive rsity of PFIZER VACCINE 00:00:00 [facility] SARS-COV-2 COVID-19 2021-07-15 Completed Unive rsity of PFIZER VACCINE 00:00:00 [facility] SARS-COV-2 COVID-19 2021-07-15 Completed Unive rsity of PFIZER VACCINE 00:00:00 [facility] SARS-COV-2 COVID-19 2021-07-15 Completed Unive rsity of PFIZER VACCINE 00:00:00 [facility] Influenza Virus 2021-05-06 Completed Maribeth Schrader ybold - Vaccine, 00:00:00 External Unspecified Formulation Influenza Virus 2021-05-06 Completed Maribeth Schrader ybold - Vaccine, 00:00:00 External Unspecified Formulation Influenza Virus 2021-05-06 Completed Universit y of Vaccine 00:00:00 [facility] Influenza Virus 2021-05-06 Completed Universit y of Vaccine 00:00:00 [facility] Influenza Virus 2021-05-06 Completed Universit y of Vaccine 00:00:00 [facility] Influenza Virus 2021-05-06 Completed Universit y of Vaccine 00:00:00 [facility] SARS-COV-2 COVID-19 2021-04-11 Completed Unive rsity of PFIZER VACCINE 00:00:00 [facility] SARS-COV-2 COVID-19 2021-04-11 Completed Unive rsity of PFIZER VACCINE 00:00:00 [facility] SARS-COV-2 COVID-19 2021-04-11 Completed Unive rsity of PFIZER VACCINE 00:00:00 [facility] SARS-COV-2 COVID-19 2021-04-11 Completed Unive rsity of PFIZER VACCINE 00:00:00 [facility] SARS-COV-2 COVID-19 2021-03-21 Completed Unive rsity of PFIZER VACCINE 00:00:00 [facility] SARS-COV-2 COVID-19 2021-03-21 Completed Unive rsity of PFIZER VACCINE 00:00:00 [facility] SARS-COV-2 COVID-19 2021-03-21 Completed Unive rsity of PFIZER VACCINE 00:00:00 [facility] SARS-COV-2 COVID-19 2021-03-21 Completed Unive rsity of PFIZER VACCINE 00:00:00 [facility] Influenza Virus 2019-07-02 Completed Maribeth Schrader ybold - Vaccine, No 00:00:00 External Preserv, age 6 months and up Influenza Virus 2019-07-02 Completed Maribeth Schrader ybold - Vaccine, No 00:00:00 External Preserv, age 6 months and up Influenza Virus 2019-07-02 Completed [facility] Vaccine Quad .5 mL 00:00:00 [facility] 6+ [place] Influenza Virus 2019-07-02 Completed [facility]it y of Vaccine Quad .5 mL 00:00:00 [facility] 6+ MO [place] Influenza Virus 2019-07-02 Completed Universit y of Vaccine Quad .5 mL 00:00:00 [facility] 6+ [place] Influenza Virus 2019-07-02 Completed Universit y of Vaccine Quad .5 mL 00:00:00 [facility] 6+ [place] Vital Signs Vital Name Observation Time Observation Value Comments Source Systolic blood 2022-10-12 20:23:00 148 mm[Hg] Maribeth Snyderold - pressure External Diastolic blood 2022-10-12 20:23:00 72 mm[Hg] Miguel Thakkar - pressure External Heart rate 2022-10-12 20:23:00 76 /min Maribeth tena - External Body temperature 2022-10-12 20:23:00 36.78 Rafaela Priscila bolivar Seybold - External Respiratory rate 2022-10-12 20:23:00 13 /min Priscila Snyderold - External Body height 2022-10-12 20:23:00 177.8 cm Maribeth tena - External Body weight 2022-10-12 20:23:00 111.585 kg Maribeth tena - External BMI 2022-10-12 20:23:00 35.30 kg/m2 Maribeth tena - External Oxygen saturation in 2022-10-12 20:23:00 99 /min Maribeth Snyderold - Arterial blood by External Pulse oximetry Systolic blood 2022-09-28 07:30:00 160 mm[Hg] Univer sity [facility] Diastolic blood 2022-09-28 07:30:00 89 mm[Hg] Unive rsity [facility] Heart rate 2022-09-28 07:30:00 108 /min [facility] Respiratory rate 2022-09-28 07:30:00 23 /min [facility] in 2022-09-28 07:30:00 91 /min University Arterial blood by [facility] Pulse oximetry Branch Body temperature 2022-09-28 04:55:00 36.78 [facility] height 2022-09-28 04:55:00 177.8 cm [facility] Body weight 2022-09-28 04:55:00 108.274 kg [facility] BMI 2022-09-28 04:55:00 34.25 kg/m2 [facility] Systolic blood 2022-05-30 13:08:00 145 mm[Hg] Maribeth Seybold - pressure External Diastolic blood 2022-05-30 13:08:00 73 mm[Hg] Miguel y Seybold - pressure External Heart rate 2022-05-30 13:08:00 79 /min Maribeth S kattbold - External Body temperature 2022-05-30 13:08:00 36.78 Rafaela Priscila ey Seybold - External Respiratory rate 2022-05-30 13:08:00 14 /min Priscila ey Seybold - External Body height 2022-05-30 13:08:00 177.8 cm Maribeth S eybold - External Body weight 2022-05-30 13:08:00 111.131 kg Maribeth S eybold - External BMI 2022-05-30 13:08:00 35.15 kg/m2 Maribeth S eybold - External Oxygen saturation in 2022-05-30 13:08:00 99 /min Maribeth ybold - Arterial blood by External Pulse oximetry Systolic blood 2021-11-16 13:58:00 127 mm[Hg] Univer sity [facility] Diastolic blood 2021-11-16 13:58:00 71 mm[Hg] Unive rsity of pressure [facility] Heart rate 2021-11-16 13:58:00 107 /min [facility] Body temperature 2021-11-16 13:58:00 36.5 Rafaela [facility] Respiratory rate 2021-11-16 13:58:00 18 /min [facility] Oxygen saturation in 2021-11-16 13:58:00 96 /min [facility] Arterial blood by [facility] Pulse oximetry Branch Body weight 2021-11-16 08:55:00 114.987 kg [facility] BMI 2021-11-16 08:55:00 36.37 kg/m2 [facility] Body height 2021-11-14 20:04:00 177.8 cm [facility] Heart Rate 2020-04-01 05:01:00 75 /min [facility] BP Diastolic 2020-04-01 04:21:00 59 mm[Hg] [facility] Procedures Procedure Date / Time Performing Clinician Source Performed CT ABDOMEN PELVIS WO 2022-09-28 06:15:00 Meag Deshpande [facility] CONTRAST [facility] URINALYSIS 2022-09-28 05:54:00 Mega Deshpande [facility] RAPID STREP SCREEN FOR 2022-09-28 05:47:00 Mega Deshpande [facility] GROUP A Medical Branch COVID-19 (ID NOW RAPID 2022-09-28 05:47:00 Mega Deshpande [facility] TESTING) Medical Branch CONSENT/REFUSAL FOR 2022-09-28 04:47:37 Doctor Unassigned, No Un [facility] DIAGNOSIS AND TREATMENT Name [facility] AMMONIA, PLASMA 2021-11-16 10:37:00 [facility] 2021-11-15 14:29:02 Darvin [facility] MAGNESIUM 2021-11-15 09:21:[facility] 2021-11-15 09:21:00 Jackie [facility] ([id number]) ([facility] T,BU/BC,ALT,AST,ALK PHOS) BASIC METABOLIC PANEL 2021-11-15 09:21:00 Jackie Jo [facility] (NA, K, CL, CO2, [facility] GLUCOSE, BUN, CREATININE, CA) CBC WITH DIFF 2021-11-15 09:21:00 Jackie [facility] CBC WITH DIFF 2021-11-14 18:15:00 Solomon Garcia [facility] PROTHROMBIN TIME / INR 2021-11-14 18:15:00 Solomon Garcia [facility] BLOOD CULTURE SCREEN 2021-11-14 18:05:00 Solomon Garcia [facility] LACTIC ACID WHOLE BLOOD 2021-11-14 18:04:00 Solomon Garcia [facility] XR CHEST 1 VW 2021-11-14 17:27:38 Solomon Garcia [facility] LIPASE 2021-11-14 17:21:00 Solomon Garcia [facility] TROPONIN I 2021-11-14 17:21:00 Solomon Garcia [facility] HEPATIC FUNCTION PANEL 2021-11-14 17:21:00 Solomon Garcia [facility] ([id number]) (ALB,T.PRO,[facility] T,BU/BC,ALT,AST,ALK PHOS) BASIC METABOLIC PANEL 2021-11-14 17:21:00 Solomon Garcia [facility] (NA, K, CL, CO2, Medical Branch GLUCOSE, BUN, CREATININE, CA) N-TERMINAL PRO-BNP 2021-11-14 17:21:00 Solomon Garcia [facility] COVID-19 (ID NOW RAPID 2021-11-14 17:21:00 Solomon Garcia [facility] TESTING) [facility] URINALYSIS 2021-11-14 17:20:00 Solomon Garcia [facility] HB ECG ROUTINE & RHYTHM 2021-11-14 17:11:04 Solomon Garcia [facility] CONSENT/REFUSAL FOR 2021-11-14 16:50:47 Doctor Unassigned, No Un [facility] DIAGNOSIS AND TREATMENT Name [facility] Computed tomography of 2020-03-31 00:00:00 [facility] abdomen and pelvis without contrast Plan of Care Planned Activity Planned Date Details Comments Source Goal Patient referral [code = [facility] [place] [id number] ] [facility] Instructions Gallstones (DC) LON louis [facility] Encounters Start End Encounter Admission Attending Care Care Encounter Source Date/Time Date/Time Type Type Clinicians Facility Department ID 2022-01-[address] [facility] [id number] Common 15:00:01 [facility] 2021-09-21 Outpatient Niko, [facility]MLC [facility] [id number] Common 11:30:08 Jennifer 7[address] [facility] 2022-10-12 2022-10-12 Outpatient MARIBETH ZAMUDIO [id number] Maribeth 14:15:00 14:15:00 SARKIS lyle 2022-10-11 2022-10-11 Outpatient MARIBETH ZAMUDIO [id number] Maribeth 00:00:00 00:00:00 SARKIS lyle 2022-09-27 2022-09-28 Emergency X [facility] ERT [id number] Univers 22:57:00 02:15:00 MEGA beasley [facility] 2022-09-27 2022-09-28 Emergency [facility] [id number] Univers 22:57:00 02:15:00 Mega COLEMAN 350.1.13.10 [facility] 4.2.7.2.686 [facility] [id number] [facility] 084 Branch 2022-09-15 2022-09-15 Outpatient PREZAMARIBETH Red [id number] Maribeth 00:00:00 00:00:00 SARKIS Seybol d 2022-08-30 2022-08-30 Outpatient PREZAMARIBETH Red [id number] Maribeth 08:00:00 08:00:00 SARKIS Seybol d 2022-07-04 2022-07-04 Outpatient PREZAMARIBETH Red [id number] Maribeth 00:00:00 00:00:00 SARKIS Seybol d 2022-06-15 2022-06-15 Outpatient MARIBETH MALDONADO [id number] Maribeth 00:00:00 00:00:00 CROW Seybol d 2022-06-07 2022-06-07 Outpatient PREZAS, MARIBETH TERRAZAS [id number] Maribeth 00:00:00 00:00:00 SARKIS Seybol d 2022-06-06 2022-06-06 Outpatient PREZAS, MARIBETH TERRAZAS [id number] Maribeth 00:00:00 00:00:00 SARKIS Seybol d 2022-06-05 2022-06-05 Outpatient PREZAS, MARIBETH TERRAZAS [id number] Maribeth 00:00:00 00:00:00 SARKIS Seybol d 2022-05-30 2022-05-30 Outpatient LAB90 MARIBETH TERRAZAS [id number] Maribeth 08:30:00 08:30:00 Seybol d 2022-05-30 2022-05-30 Outpatient PREZAMARIBETH Red [id number] Maribeth 08:00:00 08:00:00 SARKIS Seybol d 2022-05-12 2022-05-12 Outpatient PREZASMARIBETH [id number] Maribeth 00:00:00 00:00:00 SARKIS Seybol d 2022-05-12 2022-05-12 Outpatient PREZASMARIBETH [id number] Maribeth 00:00:00 00:00:00 SARKIS Seybol d 2022-05-10 2022-05-10 Outpatient SOLO MARIBETH TERRAZAS [id number] Maribeth 00:00:00 00:00:00 SARKIS Seybol d 2022-05-08 2022-05-08 Outpatient SOLO MARIBETH TERRAZAS [id number] Maribeth 00:00:00 00:00:00 SARKIS Seybol d 2022-05-02 2022-05-02 Office Mihir Zamudio [id number] Maribeth 09:00:00 09:15:00 Visit Sarkis Bowens 350.1.13.13 Se ybold 1.2.7.2.686 [id number] 2022-04-27 2022-04-27 Outpatient SOLO MARIBETH TERRAZAS [id number] Maribeth 00:00:00 00:00:00 SARKIS Seybol d 2022-04-21 2022-04-21 Outpatient MARIBETH MALDONADO [id number] Maribeth 08:00:00 08:00:00 CROW Seybol d 2022-04-07 2022-04-07 Office Mihir Maldonado [id number] Maribeth 09:00:00 09:30:00 Visit Crow Bowens 350.1.13.13 Se ybold Somogyi 1.2.7.2.686 [id number] 2022-04-06 2022-04-06 Outpatient MARIBETH MALDONADO [id number] Maribeth 00:00:00 00:00:00 CROW Seybol d 2022-03-31 2022-03-31 Outpatient LAB90 MARIBETH TERRAZAS [id number] Maribeth 09:20:00 09:20:00 Seybol d 2022-03-31 2022-03-31 Office Mihir Maldonado [id number] Maribeth 08:30:00 09:00:00 Visit Crow Bowens 350.1.13.13 Se ybold Somogyi 1.2.7.2.686 [id number] 0 2022-01-10 2022-01-10 Telephone Matt [facility] [id number] Univers 00:00:00 00:00:00 Mayabreannekenia JARED 350.1.13.10 ity [place] [id number] [address] 2021-11-17 2021-11-17 Transition ED Beck [id number] Univers 00:00:00 00:00:00 of Ernesto LYNCH 350.1.13.10 it y of [place] [id number] [facility] 403 Branch 2021-11-14 2021-11-16 Inpatient X JACKIERUST GRACE [id number] Univers 12:06:00 11:15:00 JO ity [facility] 2021-11-14 2021-11-16 [facility] Solomon Garcia [facility] 1.2.840. 114 [id number] Univers 12:06:00 11:15:00 Encounter Radha Mejiapilar CO[place] 350.1.13.10 ity [place] [id number] [place] [address] [place] 2021-11-14 2021-11-16 Outpatient X JACKIE [facility] GRACE [id number] Univers 12:06:00 11:15:00 JO ity [facility] 2021-11-02 2021-11-04 [facility] Ginette Stafford [facility] 1.2.840.1 [id number] Univers 18:50:00 10:45:00 Encounter PadminiElliot crumraudel [place] 350.1.13.10 ity of Corbin Rousseau 4.2.7.2.686 [facility] [id number] [place] [address]86[address] [place] 2021-11-02 2021-11-04 Outpatient X SOHAMRUST GRACE [id number] Univers 18:50:00 10:45:00 CORBIN beasley [facility] 2021-11-02 2021-11-04 Inpatient X SOHAM, [facility] [id number] Univers 18:50:00 10:45:00 CORBIN ity of [facility] 2021-11-04 2021-11-04 Telephone Deven [facility] [id number] Univers 00:00:00 00:00:00 Angel CO[place]MAN 350.1.13.10 ity of [place] [id number] Nd dical NAL 059 Branch [facility] 2021-11-02 2021-11-02 Orders Doctor SUKHI 1.2.840.114 [id number] Univers 00:00:00 00:00:00 Only Unassigned, MARQUES 350.1.13.[address] [facility] 4.2.7.2.686 Paul as [id number] [place] [address] Branch 2021-04-13 2021-04-13 (TEL) STLMLC STLMLC [id number] Co mmon 00:00:00 00:00:00 [facility] 2020-03-31 2020-04-01 Departed [facility] [id number] CHRISTU 23:29:00 04:32:00 Emergency [place] [address] S - Room [facility] 2020-03-31 2020-04-01 Departed LON FORREST [id number] CHRISTU 23:29:00 04:32:00 Emergency 33 S Room [facility] 2020-03-05 2020-03-05 Outpatient Brazbrandie Dominguezt [id number] Common 08:20:00 08:20:[address] [facility] [address] [facility] 2019-09-24 2019-09-24 Out[facility] [id number] Common 19:14:00 19:14:00 [facility] it [facility] 2019-04-15 2019-04-15 Outpatient [facility] [id number] Common 08:40:00 08:40:[address] [facility] [address] [facility] 2019-03-10 2019-03-10 Outpatient [facility] [id number] Common 14:40:00 14:40:00 t [facility] [address] [facility] 2019-02-26 2019-02-26 Outpatient Angeliac Romero [id number] Common 09:40:00 09:40:00 t [facility] [address] [facility] 2019-02-24 2019-02-24 Outpatient Angelica Romero [id number] Common 14:16:00 14:16:00 t [facility] [address] [facility] 2018-11-14 2018-11-14 Outpatient Angelica Romero [id number] Common 13:30:00 13:30:00 [facility] [address] [facility] Results Test Description Test Time Test Comments Results Result Comments Source AMMONIA, PLASMA 2021-11-16 11:07:26 Test Item Value Reference Range Interpretation Comme nts AMMONIA (test code = 5876459307) 61 umol/L 9-33 H Lab Interpretation (test code = 26745-6) Abnormal [facility] [id number] 10:20:12 Test Item Value Reference Range Interpretation Comments MAGNESIUM (test code = 7681439422) 1.3 mg/dL 1.7-2.4 L Lab Interpretation (test code = Abnormal 15217-3) [facility] (NA, K, CL, CO2, GLUCOSE, BUN, CREATININE, CA)2021-11-15 10:19:52 Test Item Value Reference Range Interpretation Comments NA (test code = 134 mmol/L 135-145 L 3169423691) K (test code = 3.1 mmol/L 3.5-5.0 L 5364345502) CL (test code = 100 mmol/L 98-108 9674036402) CO2 TOTAL (test code = 27 mmol/L 23-31 6467921235) AGAP (test code = 2-16 6335584973) BUN (test code = 8 mg/dL 7-23 4271100003) GLUCOSE (test code = 114 mg/dL 70-110 H 9178607002) CREATININE (test code = 0.84 mg/dL 0.60-1.25 7738125196) CALCIUM (test code = 7.6 mg/dL 8.6-10.6 L 4890279411) eGFR (test code = mL/min/1.73m2 2730333995) ROBERT (test code = ROBERT) Association of [...] tests). Lab Interpretation Abnormal (test code = 67688-6) [facility] (57073) (ALB,T.PRO,BILI T,BU/BC,ALT,AST,ALK PHOS)2021-11-15 10:19:52 Test Item Value Reference Range Interpretation Comments TOTAL BILI (test code = 3792026741) 5.3 mg/dL 0.1-1.1 H BILI UNCON (test code = 6248890900) 2.0 mg/dL 0.1-1.1 H BILI CONJ (test code = 2209112174) 0.6 mg/dL 0.0-0.3 H T PROTEIN (test code = 1278933266) 7.3 g/dL 6.3-8.2 ALBUMIN (test code = 0732726466) 3.2 g/dL 3.5-5.0 L ALK PHOS (test code = 3904863060) 212 U/L 34-122 H ALTv (test code = 1742-6) 35 U/L 5-50 AST(SGOT) (test code = 0846891772) 122 U/L 13-40 H Lab Interpretation (test code = Abnormal 11428-9) [facility] with [id number] 10:15:10 Test Item Value Reference Range Interpretation [...] (test code = 56.1 fL 38.5-51.6 H 40342-0) RDW-CV (test code = 14.9 % 12.1-15.4 788-0) PLT (test code = See_Comment L [Automated 777-3) message] The sy stem which generated this result transmitted reference range : 150 - 328 10*3/ ?L. The reference r raul was not used to interpret this result as normal/abnormal . MPV (test code = 10.1 fL 9.8-13.0 09127-4) IPF % (test code = 2.2 % 1.2-10.7 Platelet count 3387597084) measured by fluorescence method. NRBC/100 WBC (test See_Comment [Automat ed code = 8027663893) message] The system which generated this result transmitted reference range : 0.0 - 10.0 /100 WBCs. The refer ence range was not u sed to interpret th is result as normal/abnormal . NRBC x10^3 (test code <0.01 See_Comment [Auto mated = 2237058843) message] The s ystem which generated this result transmitted reference range : 10*3/?L. The reference range was not used to interpret this result as normal/abnormal . GRAN MAT (NEUT) % 41.0 % (test code = 770-8) IMM GRAN % (test code 0.20 % = 5621323166) LYMPH % (test code = 37.1 % 736-9) MONO % (test code = 15.7 % 5905-5) EOS % (test code = 5.0 % 713-8) BASO % (test code = 1.0 % 706-2) GRAN MAT x10^3(ANC) 2.03 10*3/uL 1.99-6.95 (test code = 2737630859) IMM GRAN x10^3 (test <0.03 0.00-0.06 code = 7113503113) LYMPH x10^3 (test code 1.84 10*3/uL 1.09-3.23 = 731-0) MONO x10^3 (test code 0.78 10*3/uL 0.36-1.02 = 742-7) EOS x10^3 (test code = 0.25 10*3/uL 0.06-0.53 711-2) BASO x10^3 (test code 0.05 10*3/uL 0.01-0.09 = 704-7) Lab Interpretation Abnormal (test code = 04889-1) [facility] WITH [id number] 19:14:50 Test Item Value Reference Range Interpretation [...] (test code = 55.8 fL 38.5-51.6 H 48531-8) RDW-CV (test code = 14.8 % 12.1-15.4 788-0) PLT (test code = See_Comment L [Automated 777-3) message] The sy stem which generated this result transmitted reference range : 150 - 328 10*3/ ?L. The reference r raul was not used to interpret this result as normal/abnormal . MPV (test code = 10.1 fL 9.8-13.0 82559-1) IPF % (test code = 1.8 % 1.2-10.7 Platelet count 8194901450) measured by fluorescence method. NRBC/100 WBC (test See_Comment [Automat ed code = 7879234755) message] The system which generated this result transmitted reference range : 0.0 - 10.0 /100 WBCs. The refer ence range was not u sed to interpret th is result as normal/abnormal . NRBC x10^3 (test code <0.01 See_Comment [Auto mated = 9695524549) message] The s ystem which generated this result transmitted reference range : 10*3/?L. The reference range was not used to interpret this result as normal/abnormal . GRAN MAT (NEUT) % 47.4 % (test code = 770-8) IMM GRAN % (test code 0.30 % = 7167368256) LYMPH % (test code = 31.8 % 736-9) MONO % (test code = 15.4 % 5905-5) EOS % (test code = 3.6 % 713-8) BASO % (test code = 1.5 % 706-2) GRAN MAT x10^3(ANC) 1.85 10*3/uL 1.99-6.95 L (test code = 2551249512) IMM GRAN x10^3 (test <0.03 0.00-0.06 code = 2379483790) LYMPH x10^3 (test code 1.24 10*3/uL 1.09-3.23 = 731-0) MONO x10^3 (test code 0.60 10*3/uL 0.36-1.02 = 742-7) EOS x10^3 (test code = 0.14 10*3/uL 0.06-0.53 711-2) BASO x10^3 (test code 0.06 10*3/uL 0.01-0.09 = 704-7) PLT ESTIMATE (test Decreased Normal A code = 9317-9) Lab Interpretation Abnormal (test code = 54312-2) [facility] / [id number] 18:59:44 Test Item Value Reference Range Interpretation [...] tions. Lab Interpretation (test Abnormal code = 05724-9) [facility] AreaTROPONIN [id number] 17:57:36 Test Item Value Reference Interpretation Comments Range TROPONIN I (test 0.008 ng/mL See_Comment [Automated code = 0114825516) message] The system which generated this result [...] biotin. Lab Interpretation Normal (test code = 14278-2) [facility] Area[facility]MINAL [id number] 17:54:34 Test Item Value Reference Range Interpretation Comments NT-proBNP (test code 183 pg/mL See_Comment H [Autom ated = 6591765576) message] The system which generated this result transmitted reference range : <=125. The reference range was not used to interpret this result as normal/abnormal . ROBERT (test code = ROBERT) Biotin has been reported to cause a negative bias, interpret results relative to patient's use of biotin. Lab Interpretation Abnormal (test code = 87653-3) [facility] Area[facility]ATIC FUNCTION PANEL (55920) (ALB,T.PRO,BILI T,BU/BC,ALT,AST,ALK PHOS)2021-11-14 17:45:53 Test Item Value Reference Range Interpretation Comments TOTAL BILI (test code = 5465015562) 5.8 mg/dL 0.1-1.1 H BILI UNCON (test code = 0790448018) 2.3 mg/dL 0.1-1.1 H BILI CONJ (test code = 6877893420) 0.7 mg/dL 0.0-0.3 H T PROTEIN (test code = 4561453836) 8.1 g/dL 6.3-8.2 ALBUMIN (test code = 0334550257) 3.5 g/dL 3.5-5.0 ALK PHOS (test code = 5614693188) 310 U/L 34-122 H ALTv (test code = 1742-6) 41 U/L 5-50 AST(SGOT) (test code = 7698822603) 145 U/L 13-40 H Lab Interpretation (test code = Abnormal 06367-4) [facility] (NA, K, CL, CO2, GLUCOSE, BUN, CREATININE, CA)2021-11-14 17:45:33 Test Item Value Reference Range Interpretation Comments NA (test code = 139 mmol/L 135-145 0151672525) K (test code = 3.4 mmol/L 3.5-5.0 L 9047189144) CL (test code = 105 mmol/L 98-108 3748329367) CO2 TOTAL (test code = 22 mmol/L 23-31 L 5846129692) AGAP (test code = 2-16 5160699682) BUN (test code = 6 mg/dL 7-23 L 2417309377) GLUCOSE (test code = 99 mg/dL 70-110 5883674935) CREATININE (test code = 0.81 mg/dL 0.60-1.25 9620940996) CALCIUM (test code = 7.8 mg/dL 8.6-10.6 L 8530692237) eGFR (test code = mL/min/1.73m2 6168617905) ROBERT (test code = ROBERT) Association of [...] tests). Lab Interpretation Abnormal (test code = 61886-7) [facility]2022-03-21 17:45:32 Test Item Value Reference Range Interpretation Comments LIPASE (test code = 6005317704) 189 U/L 0-220 Lab Interpretation (test code = Normal 71526-8) [facility] whole blood total carbon dioxide measurement (moles/volume)2020-04-01 00:15:00 Test Item Value Reference Range Interpretation Comments Bedside Total CO2 (test code = 23.0 mmol/L 24.0-33.0 2026-08) [facility] whole blood urea nitrogen (BUN) measurement (mass/volume) 2020-04-01 00:15:00 Test Item Value Reference Range Interpretation Comments Bedside Blood Urea Nitrogen (test 12 mg/dL 02-13 code = 15435-0) [facility] ([facility]/volume)2020-04-01 00:15:00 Test Item Value Reference Range Interpretation Comments Bedside Creatinine (test code = 2.1 mg/dL 0.9-1.5 02447-1) [facility] whole blood glucose measurement (mass/volume)2020-04-01 00:15:00 Test Item Value Reference Range Interpretation Comments Bedside Glucose (test code = 99 mg/dL 60-100 25861-8) [facility] ionized calcium measurement (moles/volume)2020-04-01 00:15:00 Test Item Value Reference Range Interpretation Comments Bedside Whole Blood Ionized 0.99 mmol/L 1.12-1.32 Calcium (test code = 1994-3) [facility] [id number] 00:15:00 Test Item Value Reference Range Interpretation Comments Bedside Anion Gap (test code = 01943-8) 17 -18 [facility] [id number] 00:15:00 Test Item Value Reference Range Interpretation Comments Estimat Glomerular Filtration Rate 37 73-125 (test code = 57914-8) [facility] blood hemoglobin measurement (mass/volume)2020-04-01 00:15:00 Test Item Value Reference Range Interpretation Comments Bedside Hemoglobin (test code = 13.9 g/dL 13.0-17.5 74433-6) [facility] fraction[facility]2020-04-01 00:15:00 Test Item Value Reference Range Interpretation Comments Bedside Hematocrit (test code = 41.0 % 40.0-53.0 59544-7) [facility] sodium measurement (moles/volume)2020-04-01 00:15:00 Test Item Value Reference Range Interpretation Comments Bedside Sodium (test code = 136 mmol/L 136-145 84879-9) [facility] Health[facility]ous whole blood potassium measurement (moles/volume)2020-04-01 00:15:00 Test Item Value Reference Range Interpretation Comments Bedside Potassium (test code = 3.8 mmol/L 3.5-5.1 93780-6) [facility] blood chloride measurement (moles/volume)2020-04-01 00:15:00 Test Item Value Reference Range Interpretation Comments Bedside Chloride (test code = 101 mmol/L 100-112 76291-9) [facility] Health[facility]ous whole blood sodium measurement (moles/volume)2020-04-01 00:15:00 Test Item Value Reference Range Interpretation Comments Bedside Sodium (test code = 136 mmol/L 36675-9) Venous whole blood potassium measurement (moles/volume)2020-04-01 00:15:00 Test Item Value Reference Range Interpretation Comments Bedside Potassium (test code = 3.8 mmol/L 35968-9) Venous whole blood chloride measurement (moles/volume)2020-04-01 00:15:00 Test Item Value Reference Range Interpretation Comments Bedside Chloride (test code = 101 mmol/L 43840-1) Venous whole blood total carbon dioxide measurement (moles/volume)2020-04-01 00:15:00 Test Item Value Reference Range Interpretation Comments Bedside Total CO2 (test code = 23.0 mmol/L 2026-) Venous whole blood urea nitrogen (BUN) measurement (mass/volume)2020-04-01 00:15:00 Test Item Value Reference Range Interpretation Comments Bedside Blood Urea Nitrogen (test 12 mg/dL code = 62629-7) Blood creatinine measurement (mass/volume)2020-04-01 00:15:00 Test Item Value Reference Range Interpretation Comments Bedside Creatinine (test code = 2.1 mg/dL 32152-4) Venous whole blood glucose measurement (mass/volume)2020-04-01 00:15:00 Test Item Value Reference Range Interpretation Comments Bedside Glucose (test code = 99 mg/dL 00846-7) Whole blood ionized calcium measurement (moles/volume)2020-04-01 00:15:00 Test Item Value Reference Range Interpretation Comments Bedside Whole Blood Ionized 0.99 mmol/L Calcium (test code = 1994-3) Blood anion [id number] 00:15:00 Test Item Value Reference Range Interpretation Comments Bedside Anion Gap (test code = 13616-1) 17 GFR estimate [id number] 00:15:00 Test Item Value Reference Range Interpretation Comments Estimat Glomerular Filtration Rate 37 (test code = 33633-5) Venous blood hemoglobin measurement (mass/volume)2020-04-01 00:15:00 Test Item Value Reference Range Interpretation Comments Bedside Hemoglobin (test code = 13.9 g/dL 52811-2) Venous blood hematocrit (volume fraction)2020-04-01 00:15:00 Test Item Value Reference Range Interpretation Comments Bedside Hematocrit (test code = 41.0 % 00697-1) Venous blood lactic acid measurement (moles/volume)2020-04-01 00:10:00 [...] HealthAutomated erythrocyte mean corpuscular hemoglobin concentration measurement (mass/jth1606-85-56 11:50:00 Test Item Value Reference Range Interpretation Comments Mean Corpuscular Hemoglobin Concent 34.7 g/dL 33.0-37.0 (test code = 786-4) [facility] HealthAutomated erythrocyte distribution width heexj3780-98-89 11:50:00 Test Item Value Reference Range Interpretation Comments Red Cell Distribution Width (test code 12.8 % 10.7-14.5 = 788-0) [facility] HealthAutomated blood platelet count (count/volume)2020-03-31 11:50:00 Test Item Value Reference Range Interpretation Comments Platelet Count (test code = 105 10*3/uL 150-450 777-3) [facility] HealthAutomated blood platelet mean volume wwgnqvzabbb0962-73-45 11:50:00 Test Item Value Reference Range Interpretation Comments Mean Platelet Volume (test code = 10.1 fL 5.7-10.7 98338-1) [facility] comment 11:50:00 Test Item Value Reference Range Interpretation Comments Manual Differential (test code = ----- 8265-1) [facility] HealthManual blood segmented neutrophils/100 poqluutyvp0924-54-66 11:50:00 Test Item Value Reference Range Interpretation Comments Neutrophils % (Manual) (test code = 61 % 42-75 769-0) [facility] HealthManual blood lymphocytes/100 xlsgpexfsv1792-57-01 11:50:00 Test Item Value Reference Range Interpretation Comments Lymphocytes % (Manual) (test code = 23 % 21-51 737-7) [facility] HealthManual blood monocytes/100 ryovhgkgug4895-71-58 11:50:00 Test Item Value Reference Range Interpretation Comments Monocytes % (Manual) (test code = 14 % 1-9 744-3) [facility] HealthManual blood eosinophil count as percentage of total leukocytes 2020-03-31 11:50:00 Test Item Value Reference Range Interpretation Comments Eosinophils % (Manual) (test code = 2 % 0-7 714-6) [facility] HealthBlood platelet detection by light npoyjfiyer3315-63-65 11:50:00 Test Item Value Reference Range Interpretation Comments Platelet Estimate (test code = Decreased 9317-9) [facility] HealthBlood erythrocyte morphology finding xwjbfdvfjlyads5841-66-32 11:50:00 Test Item Value Reference Range Interpretation [...] Dioxide Level (test code = 19 mmol/L 22-29 2027-9) [facility] HealthSerum or plasma anion gap determination (moles/volume)2020-03-31 11:50:00 Test Item Value Reference Range Interpretation Comments Anion Gap (test code = 20059-0) 18 8-18 [facility] HealthSerum or plasma urea nitrogen measurement (mass/volume)2020-03-31 11:50:00 Test Item Value Reference Range Interpretation Comments Blood Urea Nitrogen (test code = 11 mg/dL 05-17 3094-0) [facility] HealthSerum or plasma creatinine measurement (mass/volume)2020-03-31 11:50:00 Test Item Value Reference Range Interpretation Comments Creatinine (test code = 2160-0) 1.8 mg/dL 0.7-1.3 [facility] HealthGFR estimate [id number] 11:50:00 Test Item Value Reference Range Interpretation Comments Estimat Glomerular Filtration Rate 44 73-125 (test code = 57073-1) [facility] HealthSerum or plasma urea nitrogen/creatinine mass psnja1451-47-53 11:50:00 Test Item Value Reference Range Interpretation Comments BUN/Creatinine Ratio (test code = 6 3097-3) [facility] HealthSerum or plasma glucose measurement (mass/volume)2020-03-31 11:50:00 Test Item Value Reference Range Interpretation Comments Glucose Level (test code = 2345-7) 98 mg/dL 60-100 [facility] HealthOsmolality of Serum or Plasma by jscypmrhfyk5708-11-15 11:50:00 Test Item Value Reference Range Interpretation Comments Calculated Osmolality (test code 269 mosm/kg = 22980-1) [facility] HealthSerum or plasma calcium measurement (mass/volume)2020-03-31 11:50:00 Test Item Value Reference Range Interpretation Comments Calcium Level (test code = 14560-5) 7.8 mg/dL 8.4-10.2 [facility]Serum or plasma [...] Range Interpretation Comments Globulin (test code = 76778-4) 3.5 g/dL [facility] HealthSerum or plasma albumin/globulin mass [id number] 11:50:00 Test Item Value Reference Range Interpretation [...] (test code = 3040-3) 299 U/L 8-78 [facility] HealthAutomated blood leukocyte count (number/volume)2020-03-31 11:50:00 Test [...] % Automated erythrocyte mean corpuscular volume (MCV) fkwpchacuxb7754-58-22 11:50:00 Test Item Value Reference Range Interpretation Comments Mean Corpuscular Volume (test code = 98.4 fL 787-2) Automated erythrocyte mean corpuscular hemoglobin (mass per erythrocyte) 2020-03-31 11:50:00 Test Item Value Reference Range Interpretation Comments Mean Corpuscular Hemoglobin (test 34.1 pg code = 785-6) Automated erythrocyte mean corpuscular hemoglobin concentration measurement (mass/tim7839-98-07 11:50:00 Test Item Value Reference Range Interpretation Comments Mean Corpuscular Hemoglobin Concent 34.7 g/dL (test code = 786-4) Automated erythrocyte distribution width egtje0009-81-49 11:50:00 Test Item Value Reference Range Interpretation Comments Red Cell Distribution Width (test code 12.8 % = 788-0) Automated blood platelet count (count/volume)2020-03-31 11:50:00 Test Item Value Reference Range Interpretation Comments Platelet Count (test code = 105 10*3/uL 777-3) Automated blood platelet mean volume fpknsktzplw9774-55-21 11:50:00 Test Item Value Reference Range Interpretation Comments Mean Platelet Volume (test code = 10.1 fL 92688-7) Service comment [id number] 11:50:00 Test Item Value Reference Range Interpretation Comments Manual Differential (test code = ----- 8265-1) Manual blood segmented neutrophils/100 wftkcoiphh7585-72-50 11:50:00 Test Item Value Reference Range Interpretation Comments Neutrophils % (Manual) (test code = 61 % 769-0) Manual blood lymphocytes/100 fvyxfrymkm2620-28-61 11:50:00 Test Item Value Reference Range Interpretation Comments Lymphocytes % (Manual) (test code = 23 % 737-7) Manual blood monocytes/100 xmiphzixlo2054-93-70 11:50:00 Test Item Value Reference Range Interpretation Comments Monocytes % (Manual) (test code = 14 % 744-3) Manual blood eosinophil count as percentage of total hhmetginat7185-48-75 11:50:00 Test Item Value Reference Range Interpretation Comments Eosinophils % (Manual) (test code = 2 % 714-6) Blood platelet detection by light vdsmyzxndk5925-38-16 11:50:00 Test Item Value Reference Range Interpretation Comments Platelet Estimate (test code = Decreased 9317-9) Blood erythrocyte morphology finding ruxabkmqnjbghb1944-71-19 11:50:00 Test Item Value Reference Range Interpretation [...] Level (test code = 102 mmol/L 5-0) Serum or plasma total carbon dioxide measurement (moles/volume)2020-03-31 11:50:00 Test Item Value Reference Range Interpretation Comments Carbon Dioxide Level (test code = 19 mmol/L 8-9) Serum or plasma anion gap determination (moles/volume)2020-03-31 11:50:00 Test Item Value Reference Range Interpretation Comments Anion Gap (test code = 62147-5) 18 Serum or plasma urea nitrogen measurement (mass/volume)2020-03-31 11:50:00 Test Item Value Reference Range Interpretation Comments Blood Urea Nitrogen (test code = 11 mg/dL 3094-0) Serum or plasma creatinine measurement (mass/volume)2020-03-31 11:50:00 Test Item Value Reference Range Interpretation Comments Creatinine (test code = 2160-0) 1.8 mg/dL GFR estimate [id number] 11:50:00 Test Item Value Reference Range Interpretation Comments Estimat Glomerular Filtration Rate 44 (test code = 92954-5) Serum or plasma urea nitrogen/creatinine mass jmxtp8207-21-70 11:50:00 Test Item Value Reference Range Interpretation Comments BUN/Creatinine Ratio (test code = 6 3097-3) Serum or plasma glucose measurement (mass/volume)2020-03-31 11:50:00 Test Item Value Reference Range Interpretation Comments Glucose Level (test code = 2345-7) 98 mg/dL Osmolality of Serum or Plasma by umliygibrzi5526-41-42 11:50:00 Test Item Value Reference Range Interpretation Comments Calculated Osmolality (test code 269 mosm/kg = 00611-6) Serum or plasma calcium measurement (mass/volume)2020-03-31 11:50:00 Test Item Value Reference Range Interpretation Comments Calcium Level (test code = 67651-9) 7.8 mg/dL Serum or plasma total bilirubin [...] Range Interpretation Comments Globulin (test code = 77901-2) 3.5 g/dL Serum or plasma albumin/globulin mass xvhcg5907-45-02 11:50:00 Test Item Value Reference Range Interpretation [...] = 3040-3) 299 U/L Urinalysis specimen collection [id number] 02:48:00 Test Item Value Reference Range Interpretation Comments Urine Source (test code = 03584-0) URINE [facility] HealthUrine color xvqbwbdvnoewk6768-65-73 02:48:00 Test Item Value Reference Range Interpretation Comments Urine Color (test code = 5778-6) Yellow Yel-Dyan * [facility] HealthUrine clarity jzchhfipeofiu4308-71-91 02:48:00 Test Item Value Reference Range Interpretation Comments Urine Appearance (test code = 90142-5) Clear Clear * [facility] HealthUrine pH measurement by automated test fcmff7273-60-03 02:48:00 Test Item Value Reference Range Interpretation Comments Urine pH (test code = 96462-4) 5.0 5.0-8.0 [facility] HealthSpecific gravity of Urine by Automated test ikdcs1326-92-43 02:48:00 Test Item Value Reference Range Interpretation Comments Urine Specific [place] (test code = 1.020 1.005-1.030 83738-9) [facility] HealthUrine protein measurement by automated test strip (mass/volume) 2020-03-31 02:48:00 Test Item Value Reference Range Interpretation Comments Urine Protein (test code = 62056-5) 100 mg/dL Negative * [facility] HealthUrine glucose measurement by automated test strip (mass/volume) 2020-03-31 02:48:00 Test Item Value Reference Range Interpretation Comments Urine Glucose (UA) (test code Negative mg/dL Negative * = 35556-1) [facility] HealthUrine ketones measurement by automated test strip (mass/volume) 2020-03-31 02:48:00 Test Item Value Reference Range Interpretation Comments Urine Ketones (test code = 54443-7) 15 mg/dL Negative * [facility] HealthUrine erythrocytes count by automated test strip (number/volume) 2020-03-31 02:48:00 Test Item Value Reference Range Interpretation Comments Urine Occult Blood (test Negative {Butch}/uL Negative * code = 36385-7) [facility] HealthUrine nitrite detection by automated test fmkma7186-94-43 02:48:00 Test Item Value Reference Range Interpretation Comments Urine Nitrite (test code = 28359-6) Negative Negative [facility] HealthUrine total bilirubin measurement by automated test strip (mass/volume)2020-03-31 02:48:00 Test Item Value Reference Range Interpretation Comments Urine Bilirubin (test code = 58502-9) 1 mg/dL Negative [facility] HealthConfirmatory urine bilirubin ausrflikoti6803-28-86 02:48:00 Test Item Value Reference Range Interpretation Comments Urine Ictotest (test code = 88380-4) Positive Negative [facility] HealthUrine urobilinogen measurement by automated test strip (mass/volume)2020-03-31 02:48:00 Test Item Value Reference Range Interpretation Comments Urine Urobilinogen (test code = 4.0 mg/dL 0.0-1.0 78086-5) [facility] HealthUrine leukocytes count by automated test strip (number/volume) 2020-03-31 02:48:00 Test Item Value Reference Range Interpretation Comments Urine Leukocyte Esterase (test 25 {Zohaib}/uL Negative code = 06351-7) [facility] HealthMicroscopic examination of uzvsr0081-48-55 02:48:00 Test Item Value Reference Range Interpretation Comments Microscopic Urinalysis (T) (test code = ----- 93475-5) [facility] HealthUrine sediment erythrocyte count by microscopy (number/high power field)2020-03-31 02:48:00 Test Item Value Reference Range Interpretation Comments Urine RBC (test code = None Seen /[HPF] 0-2 19809-9) [facility] HealthUrine sediment leukocyte count by microscopy [...] code = None Seen /[HPF] None * 13031-7) [facility] HealthAmorphous sediment detection in urine sediment by light fejdbppvny6063-99-94 02:48:00 Test Item Value Reference Range Interpretation [...] (test 6-10 /[LPF] None * code = 58365-5) [facility] HealthYeast detection in urine sediment by light kqbabmyksz7315-69-68 02:48:00 Test Item Value Reference Range Interpretation Comments Urine Yeast (test code = None Seen /[HPF] None 36072-1) [facility] comment 02:48:00 Test Item Value [...] (test code = Not Ind 8264-4) [facility] HealthUrinalysis specimen collection wgbdeo2250-11-27 02:48:00 Test Item Value Reference Range Interpretation Comments Urine Source (test code = 43859-6) URINE Urine color nwgaegqjpmcbi0127-10-52 02:48:00 Test Item Value Reference Range Interpretation Comments Urine Color (test code = 5778-6) Yellow Urine clarity xabwugxryjybi3335-49-86 02:48:00 Test Item Value Reference Range Interpretation Comments Urine Appearance (test code = 47611-9) Clear Urine pH measurement by automated test jrvob6211-13-19 02:48:00 Test Item Value Reference Range Interpretation Comments Urine pH (test code = 81970-1) 5.0 Specific gravity of Urine by Automated test wefha8027-43-43 02:48:00 Test Item Value Reference Range Interpretation Comments Urine Specific [place] (test code = 1.020 38227-1) Urine protein measurement by automated test strip (mass/volume)2020-03-31 02:48:00 Test Item Value Reference Range Interpretation Comments Urine Protein (test code = 65656-7) 100 mg/dL Urine glucose measurement by automated test strip (mass/volume)2020-03-31 02:48:00 Test Item Value Reference Range Interpretation Comments Urine Glucose (UA) (test code Negative mg/dL = 69202-9) Urine ketones measurement by automated test strip (mass/volume)2020-03-31 02:48:00 Test Item Value Reference Range Interpretation Comments Urine Ketones (test code = 11956-3) 15 mg/dL Urine erythrocytes count by automated test strip (number/volume)2020-03-31 02:48:00 Test Item Value Reference Range Interpretation Comments Urine Occult Blood (test Negative {Butch}/uL code = 49188-8) Urine nitrite detection by automated test [id number] 02:48:00 Test Item Value Reference Range Interpretation Comments Urine Nitrite (test code = 93074-9) Negative Urine total bilirubin measurement by automated test strip (mass/volume) 2020-03-31 02:48:00 Test Item Value Reference Range Interpretation Comments Urine Bilirubin (test code = 33893-1) 1 mg/dL Confirmatory urine bilirubin slhsutrzjoe1622-93-13 02:48:00 Test Item Value Reference Range Interpretation Comments Urine Ictotest (test code = 68751-7) Positive Urine urobilinogen measurement by automated test strip (mass/volume)2020-03-31 02:48:00 Test Item Value Reference Range Interpretation Comments Urine Urobilinogen (test code = 4.0 mg/dL 07412-3) Urine leukocytes count by automated test strip (number/volume)2020-03-31 02:48:00 Test Item Value Reference Range Interpretation Comments Urine Leukocyte Esterase (test 25 {Zohaib}/uL code = 44372-8) Microscopic examination of qkajd6885-42-35 02:48:00 Test Item Value Reference Range Interpretation Comments Microscopic Urinalysis (T) (test code = ----- 73575-7) Urine sediment erythrocyte count by microscopy (number/high power field) 2020-03-31 02:48:00 Test Item Value Reference Range Interpretation Comments Urine RBC (test code = None Seen /[HPF] 40737-5) Urine sediment leukocyte count by microscopy (number/high [...] Crystals (test code = None Seen /[HPF] 62556-2) Amorphous sediment detection in urine sediment by light cmjjayuwje0356-14-88 02:48:00 Test Item Value Reference Range Interpretation [...] Granular Casts (test 6-10 /[LPF] code = 78356-1) Yeast detection in urine sediment by light nicmkkebfs3880-84-09 02:48:00 Test Item Value Reference Range Interpretation Comments Urine Yeast (test code = None Seen /[HPF] 40174-1) Service comment 02:48:00 Test Item Value Reference Range Interpretation Comments Urinalysis Comment (test code = 8262-8) * Service comment 02:48:00 Test Item Value Reference Range Interpretation Comments Urine Culture Indicated (test code = Not Ind 8264-4)"
--- NOTE | 2022-10-12 16:40 | RAD REPORT ---
EXAM DESCRIPTION: [place] Single View10/12/2022 4:34 pm CLINICAL HISTORY: Leg swelling COMPARISON: 2021 FINDINGS: The lungs appear clear of acute infiltrate. The heart is normal size IMPRESSION: No acute abnormalities displayed
[2022-10-12] MEDS ORDERED: ONDANSETRON 4 MG/2 ML VIAL ONE (16:47)
[2022-10-12] MEDS ORDERED: MORPHINE 4 MG/ML SYR ONE ×2 (16:47→19:40)
[2022-10-12 17:14] LABS: Hematocrit 34.5 % (39.6-49.0); MCV 97.3 fL (80-100); MPV 7.6 fL (7.6-11.3); RBC Red Blood Cell Count 3.54 M/uL (4.33-5.43)
[2022-10-12 17:18] LABS: Protime INR 1.53
[2022-10-12 17:38] LABS: Magnesium 1.5 mg/dL (1.6-2.4); Potassium 3.7 mmol/L (3.5-5.1); Troponin High Sensitivity 11.3 pg/mL (<58.9)
--- NOTE | 2022-10-12 18:07 | RAD REPORT ---
EXAM DESCRIPTION: USExtrem Venous W Compress Bil10/12/2022 5:57 pm CLINICAL HISTORY: Right leg pain COMPARISON: None. FINDINGS: Right common femoral, superficial femoral, greater saphenous, popliteal and right posterio r tibial veins are compressible and demonstrate augmentation. Doppler demonstrates good flow. Grayscale, color and spectral analysis performed on all vessels IMPRESSION: No evidence of deep venous thrombosis involving the right lower extremity.
--- NOTE | 2022-10-12 18:12 | RAD REPORT ---
EXAM DESCRIPTION: US - Lower Extremity Arterial Bilat - 10/12/2022 5:57 pm CLINICAL HISTORY: Leg pain COMPARISON: None FINDINGS: Right common femoral, superficial femoral arteries demonstrate triphasic waveforms The right popliteal and right posterior tibial arteries demonstrate monophasic waveforms. Right dorsalis pedis arterial waveform triphasic The left common femoral, superficial femoral and popliteal arteries demonstrate triphasic waveforms The left posterior tibial has a monophasic waveforms. Left dorsalis pedis arterial waveform monophasi c and diminished in amplitude Grayscale, color and spectral analysis performed on all vessels IMPRESSION: No high-grade proximal/mid stenosis involving the lower extremity arteries. Mild to moderate disease involving the lower extremity distal arteries
[2022-10-12 18:23] LABS: Blood Morphology Comment NOT SEEN (NOT SEEN); Platelet Estimate DECR
[2022-10-12 19:02] LABS: Urine Blood 2+ (Negative); Urine Glucose Negative (Negative); Urine Protein Negative (Negative); Urine Specific Gravity 1.015 (1.005-1.030)
[2022-10-12] MEDS ORDERED: FUROSEMIDE 40 MG/4 ML VIAL ONE (19:04)
[2022-10-12] MEDS ORDERED: MAGNESIUM OXIDE 400 MG TAB ONE (19:04)
--- NOTE | 2022-10-12 19:17 | ER ---
Nurse's Notes [facility] Name: Sung Brown Jr Age: 47 yrs Sex: Male : 1975 Arrival Date: 10/12/2022 Time: 15:15 Bed 17 Private MD: Diagnosis: Cellulitis of right lower limb;Edema, unspecified;Alcohol use, unspecified Presentation: 10/12 15:44 Chief complaint: Patient states: Right lower extremity swelling and after hitting leg, jl7 Dr. Zamudio at [facility] sent for DVT evaluation. Reports long standing ETOH use 1 liter of liquor per day, last drink this morning, hx of withdrawals and reports "I feel like I'm starting to shake.". Coronavirus screen: Vaccine status: Patient reports receiving the 2nd dose of the covid vaccine. At this time, the client does not indicate any symptoms associated with coronavirus-19. Ebola Screen: No symptoms or risks identified at this time. Initial Sepsis Screen: Does the patient meet any 2 criteria? No. Patient's initial sepsis screen is negative. Does the patient have a suspected source of infection? No. Patient's initial sepsis screen is negative. Risk Assessment: Do you want to hurt yourself or someone else? Patient reports no desire to harm self or others. Onset of symptoms is unknown. 15:44 Method Of Arrival: Wheelchair [facility] 15:44 Acuity: CINTIA 2 jl7 Triage Assessment: 15:48 General: Appears in no apparent distress. uncomfortable, Behavior is calm, cooperative, jl7 appropriate for age. Pain: Complains of pain in right leg Pain currently is 10 out of 10 on a pain scale. Historical: - Allergies: 15:48 Lisinopril; jl7 - Home Meds: 15:48 Albuterol Inhl [Active]; budesonide-formoterol 160-4.5 mcg/actuation inhalation HFAA 2 jl7 puffs 2 times per day [Active]; esomeprazole magnesium 40 mg oral grps 1 packet 2 times per day [Active]; fluoxetine 20 mg Oral cap 1 cap once daily [Active]; folic acid 1 mg Oral tab 1 tab once daily [Active]; furosemide 40 mg Oral tab 1 tab once daily [Active]; lorazepam 1 mg Oral tab once daily [Active]; Nystatin Oral [Active]; pantoprazole 20 mg oral TbEC [Active]; Proctofoam HC Rectal [Active]; spironolactone 25 mg Oral tab 1 tab once daily [Active]; thiamine HCl (vitamin B1) 100 mg Oral tab [Active]; tramadol 50 mg Oral tab [Active]; - PMHx: 15:48 ADD/ADHD; cirrhosis of liver; COPD; Hepatitis; C; Hypertension; WPW; chronic idiopathic jl7 thrombocytopenia; - Immunization history:: Client reports receiving the 2nd dose of the Covid vaccine. - Social history:: Smoking status: Patient reports the use of cigarette tobacco products, smokes one-half pack cigarettes per day, Patient uses alcohol, on a daily basis. patient/guardian reports chronic longstanding heavy alcohol consumption. Patient uses. Screenin:56 [facility] ED Fall Risk Assessment (Adult) History of falling in the last 3 months, db including since admission No falls in past 3 months (0 pts) Confusion or Disorientation No (0 pts) Intoxicated or Sedated No (0 pts) Impaired Gait Yes (1 pt) Mobility Assist Device Used Yes (1 pt) Altered Elimination No (0 pt) Score/Fall Risk Level 0 - 2 = Low Risk Oriented to surroundings, Maintained a safe environment. Abuse screen: Denies threats or abuse. Denies injuries from another. Nutritional screening: No deficits noted. Tuberculosis screening: No symptoms or risk factors identified. Assessment: 16:37 Reassessment: Patient appears in no apparent distress at this time. Patient and/or db family updated on plan of care and expected duration. Pain level reassessed. Patient is alert, oriented x 3, equal unlabored respirations, skin warm/dry/pink. patient is jaundice with red blotching. patient reports drinking alcohol daily. States drank this AM. General: Appears in no apparent distress. comfortable, Behavior is calm, cooperative. 17:14 Reassessment: Patient appears in no apparent distress at this time. Patient and/or db family updated on plan of care and expected duration. Pain level reassessed. Patient is alert, oriented x 3, equal unlabored respirations, skin warm/dry/pink. 18:15 Reassessment: Patient appears in no apparent distress at this time. Patient and/or db family updated on plan of care and expected duration. Pain level reassessed. Patient is alert, oriented x 3, equal unlabored respirations, skin warm/dry/pink. patient ambulatory to restroom. 19:00 General: Appears in no apparent distress. comfortable, well groomed, well developed, pf1 Behavior is calm, cooperative. 19:00 Pain: Complains of pain in right leg and left leg Pain currently is 10 out of 10 on a pf1 pain scale. Neuro: No deficits noted. Level of Consciousness is awake, alert, obeys commands, Oriented to person, place, time, situation. Cardiovascular: No deficits noted. Capillary refill < 3 seconds Patient's skin is warm and dry. Respiratory: No deficits noted. GI: No deficits noted. Abdomen is round non-distended, Bowel sounds present X 4 quads. : No deficits noted. No signs and/or symptoms were reported regarding the genitourinary system. EENT: No deficits noted. No signs and/or symptoms were reported regarding the EENT system. Derm: Bruising that is dark purple, on right leg. Musculoskeletal: Swelling present in right leg and left leg. Vital Signs: 15:44 BP 143 / 91; Pulse 86; Resp 17 S; Temp 97.8(O); Pulse Ox 99% on R/A; Weight 111.13 kg; jl7 Height 5 ft. 10 in. (177.80 cm); Pain 10/10; 17:14 BP 129 / 85; Pulse 95; Resp 16; Temp 98.6; Pulse Ox 99% ; Pain 9/10; db 18:00 BP 135 / 77; Pulse 95; Resp 16; Pulse Ox 100% on R/A; db 19:00 BP 142 / 88; Pulse 95; Resp 18; Pulse Ox 99% on R/A; db 15:44 Body Mass Index 35.15 (111.13 kg, 177.80 cm) jl7 ED Course: 15:15 Patient arrived in ED. rg4 15:19 Ganesh Capone PA is PHCP. cp 15:19 Gallo Figueroa MD is Attending Physician. cp 15:42 Gayla Lindsey, VIMAL is Primary Nurse. db 15:48 Triage completed. jl7 15:48 Arm band placed on right wrist. jl7 16:36 XRAY Chest (1 view) In Process Unspecified. EDMS 16:40 Missed attempt(s): 22 gauge in right forearm. db 16:45 Missed attempt(s): 20 gauge in right antecubital area. db 16:52 Missed attempt(s): 22 gauge in right hand. Bleeding controlled, band aid applied, mb9 catheter tip intact. 16:52 Missed attempt(s): 22 gauge in right antecubital area. Bleeding controlled, band aid mb9 applied, catheter tip intact. 17:09 Initial lab(s) drawn, by me, sent to lab. Inserted saline lock: 22 gauge in right jl7 forearm, using aseptic technique. Blood collected. 17:59 Lower Extremity Arterial Bilat US In Process Unspecified. EDMS 17:59 US Extremity Venous W Compression Gurinder In Process Unspecified. EDMS 19:15 Sarkis Zamudio DO is Referral Physician. cp 19:15 Patient has correct armband on for positive identification. Bed in low position. Call db light in reach. Side rails up X2. Client placed on continuous cardiac and pulse oximetry monitoring. NIBP monitoring applied. Warm blanket given. 19:51 No provider procedures requiring assistance completed. IV discontinued, intact, pf1 bleeding controlled, No redness/swelling at site. Pressure dressing applied. Administered Medications: 17:13 Drug: morphine 4 mg Route: IVP; Infused Over: 4 mins; Site: right hand; db 19:12 Follow up: Response: No adverse reaction; Pain is decreased db 17:13 Drug: Zofran (Ondansetron) 4 mg Route: IVP; Site: right hand; db 19:12 Follow up: Response: No adverse reaction db 18:50 Drug: Lasix (furosemide) 20 mg Route: IVP; Site: right wrist; db 19:50 Follow up: Response: No adverse reaction; Marked relief of symptoms pf1 18:50 Drug: Magnesium 800 mg Route: PO; db 19:52 Follow up: Response: No adverse reaction pf1 19:40 Drug: Doxycycline 200 mg Route: PO; pf1 19:52 Follow up: Response: No adverse reaction pf1 19:40 Drug: morphine 4 mg Route: IVP; Infused Over: 4 mins; Site: right forearm; pf1 19:52 Follow up: Response: No adverse reaction; Marked relief of symptoms; Pain is decreased; pf1 RASS: Alert and Calm (0) Medication: 19:53 VIS not applicable for this client. pf1 Outcome: 19:16 Discharge ordered by . cp 19:53 Discharged to home ambulatory, with family. pf1 19:53 Condition: improved 19:53 Discharge instructions given to patient, Instructed on discharge instructions, follow up and referral plans. Demonstrated understanding of instructions, follow-up care, medications, Prescriptions given X 2. 19:53 Patient left the ED. pf1 Signatures: Dispatcher [employer] EDMS Ganesh Capone PA PA cp Garcia, Rubi rg4 Shauna Chong RN RN jl7 Gayla Lindsey RN RN Mery Mendez RN RN mb9 Jo-Ann marcial RN RN pf1 Corrections: (The following items were deleted from the chart) 15:54 15:48 Allergies: NKDA; douglas jl7 15:54 15:48 PSHx: multiple orthopedic surgeries; douglas jl7
--- NOTE | 2022-10-12 19:17 | EDPHYS ---
Physician Documentation [facility] Name: Sung Brown Jr Age: 47 yrs Sex: Male : 1975 Arrival Date: 10/12/2022 Time: 15:15 Bed 17 Private MD: ED Physician Gallo Figueroa HPI: 10/12 16:05 This 47 yrs old Male presents to ER via Wheelchair with complaints of Leg Swelling. cp 16:05 The patient presents with pain, that is acute, swelling. The complaints affect the cp right lower leg. Context: resulted from an unknown cause, the patient can fully bear weight, the patient is able to ambulate, with mild difficulty, Problem is a result from a previous injury: Yes. lower leg fracture. 16:05 Associated signs and symptoms: Pertinent positives: swelling, warmth, Pertinent cp negatives fever, weakness. Historical: - Allergies: 15:48 Lisinopril; jl7 - Home Meds: 15:48 Albuterol Inhl [Active]; budesonide-formoterol 160-4.5 mcg/actuation inhalation HFAA 2 jl7 puffs 2 times per day [Active]; esomeprazole magnesium 40 mg oral grps 1 packet 2 times per day [Active]; fluoxetine 20 mg Oral cap 1 cap once daily [Active]; folic acid 1 mg Oral tab 1 tab once daily [Active]; furosemide 40 mg Oral tab 1 tab once daily [Active]; lorazepam 1 mg Oral tab once daily [Active]; Nystatin Oral [Active]; pantoprazole 20 mg oral TbEC [Active]; Proctofoam HC Rectal [Active]; spironolactone 25 mg Oral tab 1 tab once daily [Active]; thiamine HCl (vitamin B1) 100 mg Oral tab [Active]; tramadol 50 mg Oral tab [Active]; - PMHx: 15:48 ADD/ADHD; cirrhosis of liver; COPD; Hepatitis; C; Hypertension; WPW; chronic idiopathic jl7 thrombocytopenia; - Immunization history:: Client reports receiving the 2nd dose of the Covid vaccine. - Social history:: Smoking status: Patient reports the use of cigarette tobacco products, smokes one-half pack cigarettes per day, Patient uses alcohol, on a daily basis. patient/guardian reports chronic longstanding heavy alcohol consumption. Patient uses. ROS: 16:10 Constitutional: Negative for body aches, chills, fever, poor PO intake. cp 16:10 Eyes: Negative for injury, pain, redness, and discharge. cp 16:10 ENT: Negative for drainage from ear(s), ear pain, sore throat, difficulty swallowing, difficulty handling secretions. 16:10 Cardiovascular: Positive for edema, Negative for chest pain, palpitations. 16:10 Respiratory: Positive for shortness of breath, Negative for cough, wheezing. 16:10 Abdomen/GI: Negative for abdominal pain, vomiting, diarrhea, constipation. 16:10 Back: Negative for injury or acute deformity, decreased range of motion. 16:10 Skin: Positive for erythema, of the right lower leg. 16:10 Neuro: Negative for altered mental status, headache, syncope, weakness. 16:10 All other systems are negative. Exam: 16:15 Constitutional: The patient appears in no acute distress, alert, awake, cp non-diaphoretic, non-toxic, well developed, well nourished, overweight 16:15 Head/Face: Normocephalic, atraumatic. cp 16:15 Eyes: Periorbital structures: appear normal, Conjunctiva: normal, no exudate, no injection, Sclera: no appreciated abnormality, Lids and lashes: appear normal, bilaterally. 16:15 ENT: External ear(s): are unremarkable, Nose: is normal, Mouth: Lips: moist, Oral mucosa: pink and intact, moist, Posterior pharynx: is normal, airway is patent, no erythema, no exudate. 16:15 Chest/axilla: Inspection: normal. 16:15 Cardiovascular: Rate: normal, Rhythm: regular, Edema: ankle edema, that is moderate, JVD: is not appreciated. 16:15 Respiratory: the patient does not display signs of respiratory distress, Respirations: normal, no use of accessory muscles, no retractions, labored breathing, is not present, Breath sounds: are clear throughout, no decreased breath sounds, no stridor, no wheezing. 16:15 Abdomen/GI: Inspection: obese Bowel sounds: active, all quadrants, Palpation: abdomen is soft and non-tender, in all quadrants. 16:15 Musculoskeletal/extremity: Extremities: noted in the right lower leg: ecchymosis, cp erythema, pain, swelling, tenderness, There is no evidence of open wounds, noted in the left lower leg: swelling, tenderness, no evidence of erythema. 16:15 Neuro: Orientation: to person, place \T\ time. Mentation: is normal. 17:06 ECG was reviewed by the Attending Physician. Vital Signs: 15:44 BP 143 / 91; Pulse 86; Resp 17 S; Temp 97.8(O); Pulse Ox 99% on R/A; Weight 111.13 kg; jl7 Height 5 ft. 10 in. (177.80 cm); Pain 10/10; 17:14 BP 129 / 85; Pulse 95; Resp 16; Temp 98.6; Pulse Ox 99% ; Pain 9/10; db 18:00 BP 135 / 77; Pulse 95; Resp 16; Pulse Ox 100% on R/A; db 19:00 BP 142 / 88; Pulse 95; Resp 18; Pulse Ox 99% on R/A; db 15:44 Body Mass Index 35.15 (111.13 kg, 177.80 cm) jl7 MDM: 15:45 Patient medically screened. 19:15 Data reviewed: vital signs, nurses notes, lab test result(s), EKG, radiologic studies, cp plain films, ultrasound. 19:15 Differential diagnosis: cellulitis, DVT, arterial occlusion. Consideration of cp Admission/Observation Escalation of care including admission/observation considered. Independent interpretation of the following test(s) in the Emergency Department EKG: See my EKG interpretation above X-Ray: My interpretation is chest negative for infiltrates. Care significantly affected by the following chronic conditions: Hypertension, Chronic Obstructive Pulmonary Disease, Liver Disease, alcohol use. Care significantly affected by the following Social Determinants of Health: Misuse of alcohol and/or drugs. Counseling: I had a detailed discussion with the patient and/or guardian regarding: the historical points, exam findings, and any diagnostic results supporting the discharge/admit diagnosis, lab results, radiology results, the need for outpatient follow up, a family practitioner, to return to the emergency department if symptoms worsen or persist or if there are any questions or concerns that arise at home. Response to treatment: the patient's symptoms have mildly improved after treatment, and as a result, I will discharge patient. 10/12 16:02 Order name: Basic Metabolic Panel; Complete Time: 17:41 cp 10/12 17:41 Interpretation: Normal except: CL 110; BUN 6; CA 8.3. cp 10/12 16:02 Order name: CBC with Diff; Complete Time: 19:04 cp 10/12 17:43 Interpretation: Normal except: WBC 2.80; RBC 3.54; HGB 11.5; HCT 34.5; PLT 38; RDW cp 19.0; ISIDORO% 34.8; MN% 24.7; EOSINOPHIL % 4.6; NEUT A 1.0. 10/12 16:02 Order name: Magnesium; Complete Time: 17:41 cp 10/12 17:42 Interpretation: Abnormal: MG 1.5. cp 10/12 16:02 Order name: NT PRO-BNP; Complete Time: 17:41 cp 10/12 16:02 Order name: PT-INR; Complete Time: 17:41 cp 10/12 17:42 Interpretation: Abnormal: PT 16.8. cp 10/12 16:02 Order name: Troponin HS; Complete Time: 17:41 cp 10/12 16:02 Order name: XRAY Chest (1 view); Complete Time: 17:41 cp 10/12 17:42 Interpretation: Report review. cp 10/12 16:02 Order name: Lower Extremity Arterial Bilat US; Complete Time: 18:14 cp 10/12 18:15 Interpretation: Report reviewed. cp 10/12 16:02 Order name: US Extremity Venous W Compression Gurinder; Complete Time: 19:04 cp 10/12 16:34 Order name: ETOH Level; Complete Time: 17:41 cp 10/12 17:42 Interpretation: ETOH 213; Reviewed. cp 10/12 17:21 Order name: Manual Differential; Complete Time: 19:04 EDMS 10/12 19:03 Order name: Urine Dipstick-Ancillary; Complete Time: 19:04 EDMS 10/12 16:02 Order name: EKG; Complete Time: 16:04 cp 10/12 16:02 Order name: Cardiac monitoring; Complete Time: 17:24 cp 10/12 16:02 Order name: EKG - Nurse/Tech; Complete Time: 17:24 cp 10/12 16:02 Order name: IV Saline Lock; Complete Time: 17:24 cp 10/12 16:02 Order name: Labs collected and sent; Complete Time: 17:25 cp 10/12 16:02 Order name: O2 Per Protocol; Complete Time: 17:25 cp 10/12 16:02 Order name: O2 Sat Monitoring; Complete Time: 17:25 cp EC:06 Rate is 85 beats/min. Rhythm is regular. MS interval is normal. QRS interval is cp prolonged at 102 msec. QT interval is normal. T waves are Inverted in lead aVR. Interpreted by me. Reviewed by me. Administered Medications: 17:13 Drug: morphine 4 mg Route: IVP; Infused Over: 4 mins; Site: right hand; db 19:12 Follow up: Response: No adverse reaction; Pain is decreased db 17:13 Drug: Zofran (Ondansetron) 4 mg Route: IVP; Site: right hand; db 19:12 Follow up: Response: No adverse reaction db 18:50 Drug: Lasix (furosemide) 20 mg Route: IVP; Site: right wrist; db 19:50 Follow up: Response: No adverse reaction; Marked relief of symptoms pf1 18:50 Drug: Magnesium 800 mg Route: PO; db 19:52 Follow up: Response: No adverse reaction pf1 19:40 Drug: Doxycycline 200 mg Route: PO; pf1 19:52 Follow up: Response: No adverse reaction pf1 19:40 Drug: morphine 4 mg Route: IVP; Infused Over: 4 mins; Site: right forearm; pf1 19:52 Follow up: Response: No adverse reaction; Marked relief of symptoms; Pain is decreased; pf1 RASS: Alert and Calm (0) Disposition Summary: 10/12/22 19:16 Discharge Ordered Location: Home cp Problem: new cp Symptoms: have improved cp Condition: Stable cp Diagnosis - Cellulitis of right lower limb cp - Edema, unspecified cp - Alcohol use, unspecified cp Followup: cp - With: Sarkis Zamudio DO - When: 2 - 3 days - Reason: Recheck today's complaints Discharge Instructions: - Discharge Summary Sheet cp - Cellulitis, Adult cp - Edema cp - How to Use Compression Stockings cp Forms: - Medication Reconciliation Form cp - Thank You Letter cp - Antibiotic Education cp - Prescription Opioid Use cp Prescriptions: - Lasix 20 mg Oral Tablet - take 1 tablet by ORAL route once daily; 5 tablet; Refills: 0, Product Selection cp Permitted - Doxycycline Hyclate 100 mg Oral Tablet - take 1 tablet by ORAL route every 12 hours; 20 tablet; Refills: 0, Product cp Selection Permitted Signatures: Dispatcher [employer] EDMS Ganesh Capone PA PA cp Leal, Jahala, RN RN jl7 Gayla Lindsey RN RN db Jo-Ann marcial RN RN pf1 Corrections: (The following items were deleted from the chart) 15:48 Allergies: NKDA; jl7 jl7 54 15:48 PSHx: multiple orthopedic surgeries; jl7 jl7
[2022-10-12] MEDS ORDERED: DOXYCYCLINE 100 MG CAP PO ONE (19:40)
[2022-10-12 20:14] VITALS: TEMP 98.6
[2022-10-12 20:27] VITALS: BP 142/88; O2SAT 99
--- NOTE | 2022-10-13 16:02 | EKG ---
Test Date: 2022-10-12 Test Time: 17:02:23 Tobacco Stemmer Machine: SAHARA MEASUREMENT RESULTS: Intervals: Rate: 85 OR: 172 QRSD: 104 QT: 434 QTc: 516 [place]: P: 77 OR: 172 QRS: 70 T: 43 INTERPRETIVE STATEMENTS: Normal sinus rhythm with sinus arrhythmia Prolonged QT Abnormal ECG Compared to ECG 11/12/2021 07:38:33 Accelerated junctional rhythm no longer present Electronically Signed On 10-13-22 16:00:14 [employer] ARTIST by Beto Rush
== END 2022-10-12 19:53 | disposition home or self-care (01) ==
LOC: ER 15:12
DX: L03.115 Cellulitis of right lower limb (principal); R60.9 Edema, unspecified; F10.90 Alcohol use, unspecified, uncomplicated; I10 Essential (primary) hypertension; J44.9 Chronic obstructive pulmonary disease, unspecified; F17.210 Nicotine dependence, cigarettes, uncomplicated; Z88.8 Allergy status to other drugs, medicaments and biological substances
CPT/HCPCS: 93005; 85025; 80048; 36415; 83735; 85610; 81003; 84484; 83880; 71045; 93925; 93970; 99284; J1940; J2405; G0480

== ENCOUNTER 2022-10-22 13:56 | Emergency (ER) | payer OTHER ==
--- OUTSIDE RECORDS SUMMARY | 2022-10-22 14:03 | XMS REPORT | Continuity of Care Document ---
:1975 Author Organization [facility] t Address [address] [place] [address] Care Team Providers Name Role Phone FOUND, PCP NOT Primary Care Physician Unavailable Jennifer Pope Attending Clinician Unavailable SARKIS ZAMUDIO Attending Clinician Unavailable MEGA DESHPANDE Attending Clinician Unavailable Mega Deshpande MD Attending Clinician CROW MALDONADO Attending Clinician Unavailable LAB90 Attending Clinician Unavailable Sarkis Zamudio DO Attending Clinician Crow Maldonado MD Attending Clinician [phone] Matt CORE MEASURES ABSTRACTOR, Song Attending Clinician Kiran CELIS, Ivana Attending Clinician Unavailable JO MEJIA Attending Clinician Unavailable Radha BILLINGSLEY, Solomon B Attending Clinician Jo Mejia MD Attending Clinician Ginette Gonzalez Attending Clinician Corbin Rousseau MD Attending Clinician CORBIN ROUSSEAU Attending Clinician Unavailable Deven BURGESS, Angel Attending Clinician Doctor Unassigned, [place] Attending Clinician Unavailable MEGA DESHPANDE Admitting Clinician Unavailable JO MEJIA Admitting Clinician Unavailable Jo Mejia MD Admitting Clinician Corbin Rousseau MD Admitting Clinician CORBIN ROUSSEAU Admitting Clinician Unavailable Payers Payer Name Policy Type Policy Number Effective Date Expiration Date S vanda ROSARIO SILVESTRE DUAL 7 [id number] 2022 COMPLETE 00:00:00 CAP(HMO D-SNP OA) MONCHO SILVESTRE 5 [id number] 2022-08-27 00:00:00 MONCHO CONTRERAS PLS [id number] 2022-08-27 HMO 00:00:00 MEDICAID [place] [id number] 2018-07-27 [place] 00:[place]:00 [facility] [id number] [facility] MEDICARE [id number] 2004-03-27 [facility] NOVITAS 00:00:00 [facility] Problems Condition Condition Condition Status Onset [...] Current Current Disease Active Maribeth mild mild 9 Seybold episode of episode of 00:00: - major major 00 Externa depressive depressive l disorder disorder without without prior prior episode episode Gynecomast Gynecomast Disease Active K elsey ia, male ia, male 9 Seybol d 00:00: 00 Externa l Pneumonia Pneumonia Disease Active Uni vers 3-21 ity of 00:: [place] [facility] NSVT NSVT Disease Active Univers (nonsustai (nonsustai 3-11 it y of karla karla 00:: [place] ventricula ventricula 00 Me dical r r Branch tachycardi tachycardi a) a) Obesity Obesity Disease Active Univers (BMI (BMI 3-10 ity of 30-39.9) 30-39.9) 00:: [facility] Cigarette Cigarette Disease Active Uni vers smoker smoker 3-10 ity of 00:: [place] [facility] Alcohol Alcohol Disease Active Univers use use 3-10 ity of 00:: [place] [facility] Primary Primary Disease Active Univers hypertensi hypertensi 3-10 it y of on on 00:: [facility] Hypocalcem Hypocalcem Disease Active U nivers ia ia 3-10 ity of 00:: [place] [facility] Chest pain Chest pain Disease Active U nivers in adult in adult 3-09 ity of 00:: [place] [facility] Problem Condition [facility] Hypertensi Hypertensi Problem Active C ommon on on [facility] 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 - [facility] [id number] Anxiety Problem Active Common [facility] [id number] Alcoholism Problem Active Comm on [facility] Gastroesop GERD Problem Active Commo n hageal (gastroeso Spirit reflux phageal - [facility] disease reflux St disease) [facility] Nicotine Nicotine Problem Active Commo n dependence dependence Sp senait - [facility] Alcoholic Alcoholic Problem Active Com mon fatty fatty Spirit liver liver - [facility] [id number] Depression Problem Active Co mmon with Spirit anxiety - [facility] COPD - COPD Problem Active Common Chronic (chronic Spirit obstructiv obstructiv - [facility] e e pulmonary pulmonary [place] s disease disease) [facility] Allergies, Adverse Reactions, Alerts Allergy Allergy Status Severity Reaction(s) Onset Inactive Treating Comm ents Source Name Type Date Date Clinician Lisinopr Propensi Active Other Maribeth il ty to 8-19 reaction( Seybold adverse 00:00: s): - reaction 00 severe Externa s fatigue l lisinopr lisinopr Active severe Common il il fatigue [facility] NO KNOWN Drug Active [facility] Social History Social Habit Start Date Stop Date Quantity Comments Source History of Current Smoker Common Spi rit - Tobacco Use [facility] Sex Assigned At Common Sp senait - [facility] Exposure to 2022-09-17 2022-09-27 [facility] sure [facility] SARS-CoV-2 00:00:00 22:49:00 [facility] (event) Branch Alcohol intake 2022-09-27 2022-09-27 Current drinker Unive rsity of 00:00:00 00:00:00 of alcohol [facility] (finding) Branch Tobacco use and 2021-11-02 2021-11-02 Smokeless tobacco Un iversity of exposure 00:00:00 00:00:00 non-user [facility] [place] Education 2021-11-02 2021-11-02 15 University of 00:00:00 00:00:00 [facility] [place] Smoking Status Start Date Stop Date Source Unknown if ever smoked Roadmap Smokes tobacco daily 2021-11-02 00:00:00 [facility] Ordered Filled Start Stop Current Ordering Indication Dosage Frequency Signature Comments Components Source Medication Medication Date Date Medication? Clinician (SIG) Name Name Nystatin 2022- [id number] Take 5 mL Maribeth (Nystatin) -16 10-20 (500,000 Seyb old [id number] 00:00: 05:59 units - UNIT/ML 00 :00 [...] On Medical 09/27/22 Branch at 2330, STAT Tramadol Yes 50mg Q.25D Take 50 mg Ke lsey HCl 2-02 by mouth Seybold (ULTRAM) 50 00:00: every 6 - MG oral 00 hours as Externa Tablet needed l traMADoL Yes [id number] 50mg Take 1 Univers (ULTRAM) 50 2-02 tablet by ity of mg tablet 00:00: mouth [place] 00 every 6 Medical (six) Branch hours as needed for Pain (scale 7-10). Indication s: acute pain Pantoprazol Yes 40mg Take 40 mg Maribeth e Sodium 40 1-20 by mouth Seyb old MG oral 00:00: daily - Tablet 00 Externa Delayed l Response Spironolact Yes 25mg Take 25 mg Maribeth one 25 MG 1-20 by mouth Seybol d oral Tablet 00:00: daily - 00 Externa l Esomeprazol 2021-08 Yes [id number] 40mg Take 1 Maribeth e Magnesium 0-06 capsule Seybo ld 40 MG oral 00:00: (40 mg - Delayed 00 total) by Externa Release mouth l Capsule every morning (before breakfast) Albuterol 2021-08 Yes by other Priscila ey [...] l Hydrocort-P 2021-08 Yes by other Luis giordanooxine, 0-04 route Seybold Perianal, 08:11: - (Proctofoam 48 Externa HC) 1-1 % l apply externally Foam Lorazepam 2021-08 Yes (Schedule K elsey MG oral 0-04 IV Drug) Seybold Tablet 08:11: - 48 Externa l Nicotine 21 2021-08 Yes every 24 Ke lsey MG/24HR 0-04 hours Seybold transdermal 08:11: - PATCH 24 HR 48 Externa l Nystatin 2021-08- No [id number] Take 5 mL Maribeth (Nystatin) 0-04 10-12 (500,000 Seyb old [id number] 00:00: 04:59 units - UNIT/ML 00 :00 total) by Externa mouth/throa mouth 4 l t times Suspension daily for 7 days Furosemide Yes [id number] 40mg QD Take 1 K elsey 40 MG oral 9-06 tablet (40 Sey bold Tablet 00:00: mg total) - 00 by mouth Externa daily as l needed (edema) FOR 30 DAYS Esomeprazol Yes [id number] 40mg Take 1 Maribeth e Magnesium 9-06 capsule Seybo ld 40 MG oral 00:00: (40 mg - Delayed 00 total) by Externa Release mouth l Capsule every morning (before breakfast) Thiamine Yes [id number] 100mg Take 1 Ke lsey HCl 100 MG 9-06 tablet Seybold oral Tablet 00:00: (100 mg - 00 total) by Externa mouth l daily Fluoxetine Yes [id number] 20mg Take 1 K elsey HCl 20 MG 9-06 capsule Seybold oral 00:00: (20 mg - Capsule 00 total) by Externa mouth l daily Furosemide Yes [id number] 40mg QD Take 1 K elsey 40 MG oral 9-06 tablet (40 Sey bold Tablet 00:00: mg total) - 00 by mouth Externa daily as l needed (edema) FOR 30 DAYS Thiamine Yes [id number] 100mg Take 1 Ke lsey HCl 100 MG 9-06 tablet Seybold oral Tablet 00:00: (100 mg - 00 total) by Externa mouth l daily Fluoxetine Yes [id number] 20mg Take 1 K elsey HCl 20 MG 9-06 capsule Seybold oral 00:00: (20 mg - Capsule 00 total) by Externa mouth l daily Carvedilol 2021- No [id number] 25mg Take 8 Maribeth (Coreg) 9-06 10-04 tablets Seybold 3.125 MG 00:00: 00:00 (25 mg - oral Tablet 00 :00 total) by Ext lilia mouth in l the morning and 8 tablets (25 mg total) in the evening. Take with meals. spironolact 2021- No [id number] 100mg Take 1 Univers one 100 mg 3-24 04-24 tablet by ity of tablet 00:00: 04:59 mouth [place] 00 :00 daily for Medical 30 days. Branch spironolact 2021- No [id number] 100mg Take 1 Univers one 100 mg 11-17 tablet by ity of tablet 00:00: 04:59 mouth [place] 00 :00 daily for Medical 30 days. Branch levoFLOXaci 2021-0 2021- No [id number] 750mg Take 1 Univers n 750 mg 11-17 tablet by ity o f tablet 00:00: 04:59 mouth [place] 00 :00 daily for Medical 3 days. Branch levoFLOXaci 0 2021- No [id number] 750mg Take 1 Univers n 750 mg [...] [Order 2 End] nicotine 14 2021- No [id number] 1{patch Apply 1 Univers mg/24 hr 11-16 } Patch to ity of patch 00:00: 04:59 area(s) [place] 00 :00 every 24 Medical (twenty-fo Branch ur) hours for 30 days. furosemide 2021- No [id number] 40mg Take 1 U nivers 40 mg 11-16 tablet by ity of tablet 00:00: 04:59 mouth [place] 00 :00 every Medical morning Branch and evening for 30 days. nicotine 14 2021- No [id number] 1{patch Apply 1 Univers mg/24 hr 11-16 } Patch to ity of patch 00:00: 04:59 area(s) [place] 00 :00 every 24 Medical (twenty-fo Branch ur) hours for 30 days. furosemide 2021- No [id number] 40mg Take 1 U nivers 40 mg 11-16 tablet by ity of tablet 00:00: 04:59 mouth [place] 00 :00 every Medical morning Branch and evening for 30 days. KCL 2021- No 40meq 40 mEq, Univers (KLOR-CON 11-15 Oral, ity of M20) tablet 14:45: 13:42 [place] 40 mEq 00 :00 dose, On Medical [facility] 11/15/21 at 0945, Routine magnesium No 2g [...] [place] 00 First dose Medical on [facility] 11/15/21 at 0900, Until Discontinu ed, Routine thiamine Yes 100mg 100 mg, Unive rs (VITAMIN 11-15 Oral, ity of B1) tablet 14:00: DAILY, [place] 100 mg 00 First dose Medical on [facility] 11/15/21 at 0900, Until Discontinu [...] mg-3 01 Starting Medical mg(2.5 mg on [facility] base)/3 mL 11/15/21 at nebulizer [...] IV Push, ity of (PF)) 19:58: Q6HPRN, [place] injection 4 19 Starting Medi dyana mg on Mon Branch 11/14/21 at 1458, Until Discontinu ed, Routine, Nausea and Vomiting (N/V) morpHINE 2021- No 4mg 4 mg, Slow Un bill injection 4 11-14 IV Push, ity of mg 19:58: 19:57 Q4HPRN, [place] 17 :17 Starting Medical on Mon Branch 11/14/21 at 1458, Until Sun11/15/21 at 1457, Routine, Pain (scale 7-10) HYDROcodone 2021-2021- No 1{tbl} 1 tablet, Univers -acetaminop 11-14 Oral, ity of hen (NORCO 19:58: 19:57 Q6HPRN, [place] as 5) 5-325 mg 15 :15 Starting Medi dyana tablet 1 on [facility] Branch tablet 11/14/21 at 1458, Until Sun11/16/21 at 1457, Routine, Pain (scale 4-6) acetaminoph Yes 650mg 650 mg, Un bill en 11-14 Oral, ity of (TYLENOL) 19:58: Q6HPRN, [place] tablet 650 08 Starting Medic al mg [...] 40 mg 00 :00 dose, On Medical [facility] 11/14/21 at 1415, PHYLLIS azithromyci 2021- No 500mg 500 mg, IV Univers n 11-14 Piggyback, ity of (ZITHROMAX) 19:00: 19:40 [place] mg in 00 :00 dose, On Medica l NaCl 0.9% [facility] (NS) 250 mL 11/14/21 at VIAL-MATE 1400, IV Administer piggyback over 60 Minutes, 250 mL
R stalin for Anti-Infec tive: Empiric Therapy for Suspected Infection< br>Empiric Therapy Site: Respirator y
Durat ion of therapy: 72 hours cefTRIAXone 0 2021- No 1000mg 1,000 mg, Univers (ROCEPHIN) 11-14 IV ity of 1,000 mg in 19:00: 18:30 Piggyback, [place] NaCl 0.9% 00 :00 ONCE, 1 Medical [...] 00 :00 dose, On Medi dyana mg [facility] 11/14/21 at 1345, PHYLLIS morpHINE 2021- No 4mg 4 mg, Slow Un bill injection 4 11-14 IV Push, ity of mg 18:45: 17:37 ONCE, 1 [place] 00 :00 dose, On Medical [facility] 11/14/21 at 1345, STAT No known No Univers medications 11-14 ity of 17:39: [place] 29 [facility] Omeprazole Omeprazole Yes Jennifer 1 capsule Common 1-29 [place] 30 minutes Spirit 00:00: before - [facility] 00 morning [facility] HydrOXYzine HydrOXYzine Yes Jennifer 1 tablet Common HCl HCl 8-20 [place] as needed Spirit 00:00: - [facility] Escitalopra Escitalopra Yes Jennifer 1 tablet Common m Oxalate m Oxalate 7-15 [place] Spir it 00:00: - [facility] 00 [facility] Escitalopra Escitalopra 2018-0 No 1{table QD Escitalopr m Oxalate m Oxalate 7-15 t} am Oxalate 10 MG 10 MG 00:00: 10 MG 00 Albuterol Albuterol Yes Jennifer 3 ml as C ommon Sulfate Sulfate [place] needed Spirit - [facility] Esomeprazol Esomeprazol Yes Jennifer TAKE 1 Common e Magnesium e Magnesium [place] CAPSULE BY Spirit MOUTH - [facility] EVERY DAY [facility] Symbicort Symbicort Yes Jennifer inhale 2 Common [place] puffs by Spirit mouth - [facility]I twice [facility] Viberzi Viberzi Yes Jennifer 1 tablet Comm on [place] with food [facility] Proctofoam Proctofoam Yes Jennifer 1 Co mmon HC HC [place] applicatio Spirit n as - [facility] needed [facility] Gabapentin Gabapentin Yes Jennifer TAKE ONE Common [place] CAPSULE BY Spirit MOUTH 3 - CHI TIMES A [facility] Losartan Losartan Yes Jennifer TAKE 1 Comm on Potassium Potassium [place] TABLET BY Spirit MOUTH - [facility]I EVERY DAY [facility] Albuterol No 2 CHRISTU (Proair Hfa S - Inh) 8 [facility] [place] [facility] Carvedilol No 25mg [facility] (Coreg) 25 S - Mg TAB [place] [facility] Chlordiazep No 25mg [facility] oxide S - (Librium) [place] 25 Mg [facility] Fluoxetine No 20mg [facility] Hcl S - (Prozac) 20 [place] Mg CAP [facility] Folic Acid No 1mg [facility] (Folvite) 1 S - Mg TAB [place] [facility] Ventolin Ventolin Yes Jennifer 2 puffs Com mon HFA HFA [place] inhaled Spirit every 4-6 - CHI hours as [facility] Losartan No 50mg [facility] Potassium S - (Cozaar) 50 [place] Mg TAB [facility] Omeprazole No 40mg [facility] (Prilosec) S - 40 Mg CPDR [place] [facility] Thiamine No 100mg [facility] Hcl S - (Vitamin [place] B-1) 100 Mg Memoria TAB l Hospita l Albuterol No 2 [facility]U (Proair Hfa S Inh) 8 [facility] AERO Carvedilol No 25mg Twice A JAMESON U (Coreg) 25 Day S Mg TAB Health Chlordiazep Chlordiazep Yes Jennifer (Schedule Common oxide HCl oxide HCl [place] IV Drug) Spirit TK 1 C PO - CHI TID [facility] Chlordiazep No 25mg Three CHRISTU oxide Times [...] S (Vitamin Health B-1) 100 Mg TAB Nicotine Nicotine Yes Jennifer 1 patch to Common [place] skin [facility] Carvedilol Carvedilol Yes Jennifer 1 tab(s) 2 Common [place] times a Spirit day orally - [facility] Losartan Losartan No QD Losartan [...] Symbicort 160-4.5 160-4.5 160-4.5 MCG/ACT MCG/ACT MCG/ACT Immunizations Ordered Filled Immunization Date Status Comments [facility] e Immunization Name Name SARS-COV-2 COVID-19 2021-07-15 Completed Unive rsity of PFIZER VACCINE 00:00:00 [facility] SARS-COV-2 COVID-19 2021-07-15 Completed Unive rsity of PFIZER VACCINE 00:00:00 [facility] SARS-COV-2 COVID-19 2021-07-15 Completed Unive rsity of PFIZER VACCINE 00:00:00 [facility] SARS-COV-2 COVID-19 2021-07-15 Completed Unive rsity of PFIZER VACCINE 00:00:00 [facility] Influenza Virus 2021-05-06 Completed Maribeth Schrader ybold - Vaccine, 00:00:00 External Unspecified Formulation Influenza Virus 2021-05-06 Completed Maribeth Schrader ybold - Vaccine, 00:00:00 External Unspecified Formulation Influenza Virus 2021-05-06 Completed Universit y of Vaccine 00:00:00 [facility] [place] Influenza Virus 2021-05-06 Completed Universit y of Vaccine 00:00:00 [facility] [place] Influenza Virus 2021-05-06 Completed Universit y of Vaccine 00:00:00 [facility] [place] Influenza Virus 2021-05-06 Completed Universit y of Vaccine 00:00:00 [facility] [place] SARS-COV-2 COVID-19 2021-04-11 Completed Unive rsity of PFIZER VACCINE 00:00:00 [facility] SARS-COV-2 COVID-19 2021-04-11 Completed Unive rsity of PFIZER VACCINE 00:00:00 [facility] SARS-COV-2 COVID-19 2021-04-11 Completed Unive rsity of PFIZER VACCINE 00:00:00 [facility] SARS-COV-2 COVID-19 2021-04-11 Completed Unive rsity of PFIZER VACCINE 00:00:00 [facility] SARS-COV-2 COVID-19 2021-03-21 Completed Unive rsity of PFIZER VACCINE 00:00:00 [facility] SARS-COV-2 COVID-19 2021-03-21 Completed Unive rsity of PFIZER VACCINE 00:00:00 [facility] SARS-COV-2 COVID-19 2021-03-21 Completed Unive rsity of PFIZER VACCINE 00:00:00 [facility] SARS-COV-2 COVID-19 2021-03-21 Completed Unive rsity of PFIZER VACCINE 00:00:00 [facility] Influenza Virus 2019-07-02 Completed Maribeth Schrader ybold - Vaccine, No 00:00:00 External Preserv, age 6 months and up Influenza Virus 2019-07-02 Completed Maribeth Schrader ybold - Vaccine, No 00:00:00 External Preserv, age 6 months and up Influenza Virus 2019-07-02 Completed Universit y of Vaccine Quad .5 mL 00:00:00 [facility] 6+ [place] Influenza Virus 2019-07-02 Completed Universit y of Vaccine [place] .5 mL 00:00:00 [facility] 6+ [place] Influenza Virus 2019-07-02 Completed Universit y of Vaccine [place] .5 mL 00:00:00 [facility] 6+ [place] Influenza Virus 2019-07-02 Completed Universit y of Vaccine [place] .5 mL 00:00:00 [facility] 6+ [place] Vital Signs Vital Name Observation Time Observation [...] blood 2022-09-28 07:30:00 160 mm[Hg] Univer sity [facility] Diastolic blood 2022-09-28 07:30:00 89 mm[Hg] Unive rsity [facility] Heart rate 2022-09-28 07:30:00 108 /min [facility] Respiratory rate 2022-09-28 07:30:00 23 /min [facility] in 2022-09-28 07:30:00 91 /min University Arterial blood by [facility] Pulse oximetry Branch Body temperature 2022-09-28 04:55:00 36.78 [place] [facility] [place] [facility] Body height 2022-09-28 04:55:[address] [facility] Body weight 2022-09-28 04:55:[address] [facility] BMI 2022-09-28 04:55:00 34.25 kg/m2 [facility] Systolic blood 2022-05-30 13:08:00 145 mm[Hg] Maribeth [...] blood 2021-11-16 13:58:00 127 mm[Hg] Univer sity [facility] Diastolic blood 2021-11-16 13:58:00 71 mm[Hg] Unive rsity of pressure [facility] [place] Heart rate 2021-11-16 13:58:00 107 /min [facility] Body temperature 2021-11-16 13:58:00 36.5 [place] [facility] Respiratory rate 2021-11-16 13:58:00 18 /min [facility] Oxygen saturation in 2021-11-16 13:58:00 96 /[facility] Arterial blood by [facility] Pulse oximetry Branch Body weight 2021-11-16 08:55:[address] [facility] BMI 2021-11-16 08:55:00 36.37 kg/m2 [facility] Body height 2021-11-14 20:04:[address] [facility] Heart Rate 2020-04-01 05:01:00 75 /min [...] Performed CT ABDOMEN PELVIS WO 2022-09-28 06:15:00 Mega Deshpande [facility] CONTRAST [facility] URINALYSIS 2022-09-28 05:54:00 Mega Deshpande [facility] RAPID STREP SCREEN FOR 2022-09-28 05:47:00 Mega Deshpande [facility] GROUP A Medical Branch COVID-19 (ID NOW RAPID 2022-09-28 05:47:00 Mega Deshpande [facility] TESTING) Medical Branch CONSENT/REFUSAL FOR 2022-09-28 04:47:37 Doctor Unassigned, No Un [facility] DIAGNOSIS AND TREATMENT Name [facility] AMMONIA, PLASMA 2021-11-16 10:37:00 [facility] 2021-11-15 14:29:02 Darvin [facility] MAGNESIUM 2021-11-15 09:21:00 [facility] 2021-11-15 09:21:00 Jackie [facility] ([id number]) ([facility] T,BU/BC,ALT,AST,ALK PHOS) BASIC METABOLIC PANEL 2021-11-15 09:21:00 Jackie Jo [facility] (NA, K, CL, CO2, [facility] GLUCOSE, BUN, CREATININE, CA) CBC WITH DIFF 2021-11-15 09:21:00 Jackie [facility] CBC WITH DIFF 2021-11-14 18:15:00 Solomon Garcia [facility] PROTHROMBIN TIME / INR 2021-11-14 18:15:00 Solomon Garcia [facility] BLOOD CULTURE SCREEN 2021-11-14 18:05:00 Solomon Garcia [facility] LACTIC ACID WHOLE BLOOD 2021-11-14 18:04:00 Solomon Garcia [facility] XR CHEST 1 VW 2021-11-14 17:27:38 Solomon Garcia [facility] LIPASE 2021-11-14 17:21:00 Solomon Garcia [facility] TROPONIN I 2021-11-14 17:21:00 Solomon Garcia [facility] HEPATIC FUNCTION PANEL 2021-11-14 17:21:00 Solomon Garcia [facility] ([id number]) (ALB,T.PRO,[facility] T,BU/BC,ALT,AST,ALK PHOS) BASIC METABOLIC PANEL 2021-11-14 17:21:00 Solomon Garcia [facility] (NA, K, CL, CO2, Medical Branch GLUCOSE, BUN, CREATININE, CA) N-TERMINAL PRO-BNP 2021-11-14 17:21:[address] [facility] COVID-19 (ID NOW RAPID 2021-11-14 17:21:00 Solomon Garcia [facility] TESTING) [facility] URINALYSIS 2021-11-14 17:20:00 Solomon Garcia [facility] HB ECG ROUTINE & RHYTHM 2021-11-14 17:11:04 Solomon Garcia [facility] CONSENT/REFUSAL FOR 2021-11-14 16:50:47 Doctor Unassigned, No Un [facility] DIAGNOSIS AND TREATMENT Name [facility] Computed tomography of 2020-03-31 00:00:00 [facility] abdomen and pelvis without contrast Plan of Care Planned Activity Planned Date Details Comments Source Goal Patient referral [code = [facility] [place] [id number] ] [facility] al Instructions Gallstones (DC) LON louis [facility] al Encounters Start End Encounter Admission Attending Care Care Encounter Source Date/Time Date/Time Type Type Clinicians Facility Department ID 2022-01-17 Outpatient STLMLC [facility] [id number] Common 15:00:01 [facility] 2021-09-21 Outpatient Niko, STLMLC [facility] [id number] Common 11:30:08 Jennifer [id number] [facility] 2022-10-26 2022-10-26 Outpatient MARIBETH ZAMUDIO [id number] Maribeth 15:00:00 15:00:00 SARKIS Seybol d 2022-10-17 2022-10-17 Outpatient MARIBETH ZAMUDIO [id number] Maribeth 00:00:00 00:00:00 SARKIS Seybol d 2022-10-12 2022-10-12 Outpatient MARIBETH ZAMUDIO [id number] Maribeth 14:15:00 14:15:00 SARKIS Seybol d 2022-10-11 2022-10-11 Outpatient MARIBETH ZAMUDIO [id number] Maribeth 00:00:00 00:00:00 SARKIS Seybol d 2022-09-27 2022-09-28 Emergency X MARTIR, [facility] ERT [id number] Univers 22:57:00 02:15:00 MEGA beasley [facility] 2022-09-27 2022-09-28 [facility] [id number] Univers 22:57:00 02:15:00 Mega Red [place] [id number] [id number] [place] [address] Branch 2022-09-15 2022-09-15 Outpatient MARIBETH ZAMUDIO [id number] Maribeth 00:00:00 00:00:00 SARKIS Seybol d 2022-08-30 2022-08-30 Outpatient MARIBETH ZAMUDIO [id number] Maribeth 08:00:00 08:00:00 SARKIS Seybol d 2022-07-04 2022-07-04 Outpatient PREMARIBETH MAYS [id number] Maribeth 00:00:00 00:00:00 SARKIS Seybol d 2022-06-15 2022-06-15 Outpatient MARIBETH MALDONADO [id number] Maribeth 00:00:00 00:00:00 CROW Seybol d 2022-06-07 2022-06-07 Outpatient PREMARIBETH MAYS [id number] Maribeth 00:00:00 00:00:00 SARKIS Seybol d 2022-06-06 2022-06-06 Outpatient PREZAMARIBETH Red [id number] [place] 00:00:00 00:00:00 SARKIS Seybol d 2022-06-05 2022-06-05 Outpatient PREMARIBETH MAYS [id number] [place] 00:00:00 00:00:00 SARKIS Seybol d 2022-05-30 2022-05-30 Outpatient LAB90 MARIBETH TERRAZAS [id number] [place] 08:30:00 08:30:00 Seybol d 2022-05-30 2022-05-30 Outpatient PREMARIBETH MAYS [id number] [place] 08:00:00 08:00:00 SARKIS Seybol d 2022-05-12 2022-05-12 Outpatient MARIBETH ZAMUDIO [id number] [place] 00:00:00 00:00:00 SARKIS Seybol d 2022-05-12 2022-05-12 Outpatient PREMARIBETH MAYS [id number] [place] 00:00:00 00:00:00 SARKIS Seybol d 2022-05-10 2022-05-10 Outpatient PREMARIBETH MAYS [id number] [place] 00:00:00 00:00:00 ASRKIS Seybol d 2022-05-08 2022-05-08 Outpatient MARIBETH ZAMUDIO [id number] [place] 00:00:00 00:00:00 SARKIS Seybol d 2022-05-02 2022-05-02 Office Mihir Zamudio [id number] [place] 09:00:00 09:15:00 Visit Sarkis Bowens 350.1.13.13 Se ybold 1.2.7.2.686 [id number] 2022-04-27 2022-04-27 Outpatient MARIBETH ZAMUDIO [id number] [place] 00:00:00 00:00:00 SARKIS Seybol d 2022-04-21 2022-04-21 Outpatient MARIBETH MALDONADO [id number] [place] 08:00:00 08:00:00 CROW Seybol d 2022-04-07 2022-04-07 Office Mihir Maldonado 1.2.840.114 [id number] [place] 09:00:00 09:30:00 Visit Crow Bowens 350.1.13.13 Se ybold Somogyi 1.2.7.2.686 [id number] 2022-04-06 2022-04-06 Outpatient MARIBETH MALDONADO [id number] [place] 00:00:00 00:00:00 CROW Seybol d 2022-03-31 2022-03-31 Outpatient LAB90 MARIBETH TERRAZAS [id number] [place] 09:20:00 09:20:00 Jung lyle 2022-03-31 2022-03-31 Office Mihir Maldonado 1.2.840.114 [id number] [place] 08:30:00 09:00:00 Visit Crow Bowens 350.1.13.13 Se lisseth Frankel 1.2.7.2.686 [id number] 2022-01-10 2022-01-10 Telephone Matt [facility] 1.2.840.114 [id number] Univers 00:00:00 00:00:00 Song COLEMAN 350.1.13.10 it[place] [facility] [id number] [facility] 044 [facility] 2021-11-17 2021-11-17 Transition Kiran DUANECee 1.2.840.114 [id number] Univers 00:00:00 00:00:00 of Ernesto LYNCH 350.1.13.10 it y of [place] [id number] [facility] [address] 2021-11-14 2021-11-16 Inpatient X JACKIE [facility] GRACE [id number] Univers 12:06:00 11:15:00 JO beasley of [facility] 2021-11-14 2021-11-16 [facility] 1.2.840. 114 [id number] Univers 12:06:00 11:15:00 Encounter Jo Mejia 350.1.13.10 it[place] [id number] [facility] [address] 2021-11-14 2021-11-16 Outpatient X JACKIE [facility] [id number] Univers 12:06:00 11:15:00 JO beasley [facility] 2021-11-02 2021-11-04 [facility] Stafford [facility] 1.2.840.1 14 [id number] Univers 18:50:00 10:45:00 Encounter Jo Mejia 350.1.13.10 ity of [place] Rousseau 4.2.7.2.686 [facility] [id number] [facility] [address] 2021-11-02 2021-11-04 [facility] [id number] Univers 18:50:00 10:45:00 CORBIN mika [facility] 2021-11-02 2021-11-04 [facility] [id number] Univers 18:50:00 10:45:00 CORBIN beasley [facility] 2021-11-04 2021-11-04 Telephone [facility] 1.2.350.080 [id number] Univers 00:00:00 00:00:00 Angel COLEMAN 350.1.13.10 ity [facility] [place] [id number] [facility] [address] [facility] 2021-11-02 2021-11-02 Orders Doctor SUKHI 1.2.840.114 [id number] Univers 00:00:00 00:00:00 Only Unassigned, MARQUES 350.1.13.10 ity of [place] [facility] 4.2.7.2.686 Paul as [id number] [facility] [address] 2021-04-13 2021-04-13 [facility] [id number] Co mmon 00:00:00 00:00:00 [facility] 2020-03-31 2020-04-01 Departed LON FORREST [id number] CHRISTU 23:29:00 04:32:00 Emergency 33 S Room [facility] 2020-03-31 2020-04-01 Departed GAYLA Ni [id number] CHRISTU 23:29:00 04:32:00 Emergency [place] [address] S - Room [facility] 2020-03-05 2020-03-05 Outpatient Brazospor Angelicat [id number] Common 08:20:00 08:20:00 [facility] it Road [facility] 2019-09-24 2019-09-24 Outpatient [facility] [place] [id number] Common 19:14:00 19:14:[address] [facility] 2019-04-15 2019-04-15 Outpatient [facility] [place] [id number] Common 08:40:00 08:40:[address] [facility] 2019-03-10 2019-03-10 Outpatient Brazbrandie Dominguezt [id number] Common 14:40:00 14:40:00 t [facility] [address] [facility] 2019-02-26 2019-02-26 Outpatient [facility] [place] [id number] Common 09:40:00 09:40:00 t [facility] [address] [facility] 2019-02-24 2019-02-24 Outpatient Angelica [place] [id number] Common 14:16:00 14:16:00 t [facility] [address] [facility] 2018-11-14 2018-11-14 Outpatient Angelica Dominguezt [id number] Common 13:30:00 13:30:[address] [facility] [address] [facility] Results Test Description Test Time Test Comments Results Result Comments Source AMMONIA, PLASMA 2021-11-16 11:07:26 Test Item Value Reference Range Interpretation Comme nts AMMONIA (test code = 1160742111) 61 umol/L 9-33 H Lab Interpretation (test code = 87586-7) [facility]normal [facility] [id number] 10:20:12 Test Item Value Reference Range Interpretation Comments MAGNESIUM (test code = 9184062797) 1.3 mg/dL 1.7-2.4 L Lab Interpretation (test code = Abnormal 87500-7) [facility] (NA, K, CL, CO2, GLUCOSE, BUN, CREATININE, CA)2021-11-15 10:19:52 Test Item Value Reference Range Interpretation Comments NA (test code = 134 mmol/L 135-145 L 6849164080) K (test code = 3.1 mmol/L 3.5-5.0 L 1294924731) CL (test code = 100 mmol/L 98-108 3656881326) CO2 TOTAL (test code = 27 mmol/L 23-31 9967053267) AGAP (test code = 2-16 8387388956) BUN (test code = 8 mg/dL 7-23 9048416047) GLUCOSE (test code = 114 mg/dL 70-110 H 5658790355) CREATININE (test code = 0.84 mg/dL 0.60-1.25 9298606822) CALCIUM (test code = 7.6 mg/dL 8.6-10.6 L 1434665363) eGFR (test code = mL/min/1.73m2 6379160626) ROBERT (test code = ROBERT) Association of [...] tests). Lab Interpretation Abnormal (test code = 67480-5) [facility] (45935) (ALB,T.PRO,BILI T,BU/BC,ALT,AST,ALK PHOS)2021-11-15 10:19:52 Test Item Value Reference Range Interpretation Comments TOTAL BILI (test code = 5960368584) 5.3 mg/dL 0.1-1.1 H BILI UNCON (test code = 0655783255) 2.0 mg/dL 0.1-1.1 H BILI CONJ (test code = 8139283453) 0.6 mg/dL 0.0-0.3 H T PROTEIN (test code = 2785179700) 7.3 g/dL 6.3-8.2 ALBUMIN (test code = 0605183730) 3.2 g/dL 3.5-5.0 L ALK PHOS (test code = 0657601597) 212 U/L 34-122 H ALTv (test code = 1742-6) 35 U/L 5-50 AST(SGOT) (test code = 3453240767) 122 U/L 13-40 H Lab Interpretation (test code = Abnormal 93170-6) [facility] with Avmszseilfgm8939-13-80 10:15:10 Test Item Value Reference Range Interpretation [...] (test code = 56.1 fL 38.5-51.6 H 24800-1) RDW-CV (test code = 14.9 % 12.1-15.4 788-0) PLT (test code = See_Comment L [Automated 777-3) message] The sy stem which generated this result transmitted reference range : 150 - 328 10*3/ ?L. The reference r raul was not used to interpret this result as normal/abnormal . MPV (test code = 10.1 fL 9.8-13.0 36260-2) IPF % (test code = 2.2 % 1.2-10.7 Platelet count 9283275183) measured by fluorescence method. NRBC/100 WBC (test See_Comment [Automat ed code = 1355336429) message] The system which generated this result transmitted reference range : 0.0 - 10.0 /100 WBCs. The refer ence range was not u sed to interpret th is result as normal/abnormal . NRBC x10^3 (test code <0.01 See_Comment [Auto mated = 6071439503) message] The s ystem which generated this result transmitted reference range : 10*3/?L. The reference range was not used to interpret this result as normal/abnormal . GRAN MAT (NEUT) % 41.0 % (test code = 770-8) IMM GRAN % (test code 0.20 % = 8636371628) LYMPH % (test code = 37.1 % 736-9) MONO % (test code = 15.7 % 5905-5) EOS % (test code = 5.0 % 713-8) BASO % (test code = 1.0 % 706-2) GRAN MAT x10^3(ANC) 2.03 10*3/uL 1.99-6.95 (test code = 6927844770) IMM GRAN x10^3 (test <0.03 0.00-0.06 code = 3312512205) LYMPH x10^3 (test code 1.84 10*3/uL 1.09-3.23 = 731-0) MONO x10^3 (test code 0.78 10*3/uL 0.36-1.02 = 742-7) EOS x10^3 (test code = 0.25 10*3/uL 0.06-0.53 711-2) BASO x10^3 (test code 0.05 10*3/uL 0.01-0.09 = 704-7) Lab Interpretation Abnormal (test code = 12713-3) [facility] WITH [id number] 19:14:50 Test Item Value Reference Range Interpretation [...] (test code = 55.8 fL 38.5-51.6 H 10793-8) RDW-CV (test code = 14.8 % 12.1-15.4 788-0) PLT (test code = See_Comment L [Automated 777-3) message] The sy stem which generated this result transmitted reference range : 150 - 328 10*3/ ?L. The reference r raul was not used to interpret this result as normal/abnormal . MPV (test code = 10.1 fL 9.8-13.0 88536-5) IPF % (test code = 1.8 % 1.2-10.7 Platelet count 6426062615) measured by fluorescence method. NRBC/100 WBC (test See_Comment [Automat ed code = 1529324546) message] The system which generated this result transmitted reference range : 0.0 - 10.0 /100 WBCs. The refer ence range was not u sed to interpret th is result as normal/abnormal . NRBC x10^3 (test code <0.01 See_Comment [Auto mated = 2354080219) message] The s ystem which generated this result transmitted reference range : 10*3/?L. The reference range was not used to interpret this result as normal/abnormal . GRAN MAT (NEUT) % 47.4 % (test code = 770-8) IMM GRAN % (test code 0.30 % = 5713031719) LYMPH % (test code = 31.8 % 736-9) MONO % (test code = 15.4 % 5905-5) EOS % (test code = 3.6 % 713-8) BASO % (test code = 1.5 % 706-2) GRAN MAT x10^3(ANC) 1.85 10*3/uL 1.99-6.95 L (test code = 8423357513) IMM GRAN x10^3 (test <0.03 0.00-0.06 code = 6656930325) LYMPH x10^3 (test code 1.24 10*3/uL 1.09-3.23 = 731-0) MONO x10^3 (test code 0.60 10*3/uL 0.36-1.02 = 742-7) EOS x10^3 (test code = 0.14 10*3/uL 0.06-0.53 711-2) BASO x10^3 (test code 0.06 10*3/uL 0.01-0.09 = 704-7) PLT ESTIMATE (test Decreased Normal A code = 9317-9) Lab Interpretation Abnormal (test code = 63012-4) [facility] / [id number] 18:59:44 Test Item Value Reference Range Interpretation Comments PROTIME PATIENT (test See_Comment H [Auto mated message] code = 5964-2) The system GPNX ich generated this result transmitted ref erence range: 12.0 - 1 4.7 Seconds. The reference range was not used to int erpret this result as normal/abnormal . INR (test code = 6301-6) Nor mal INR <1.1; Warfarin Therap eutic range 2.0 to 3. 0 or 2.5 to 3.5, dep ending upon the indica tions. Lab Interpretation (test Abnormal code = 78205-7) [facility] [id number] 17:57:36 Test Item Value Reference Interpretation Comments Range TROPONIN I (test 0.008 ng/mL See_Comment [Automated code = 7536537098) message] The system which generated this result [...] biotin. Lab Interpretation Normal (test code = 11571-7) [facility] AST-[id number] 17:54:34 Test Item Value Reference Range Interpretation Comments NT-proBNP (test code 183 pg/mL See_Comment H [Autom ated = 8858269839) message] The system which generated this result transmitted reference range : <=125. The reference range was not used to interpret this result as normal/abnormal . ROBERT (test code = ROBERT) Biotin has been reported to cause a negative bias, interpret results relative to patient's use of biotin. Lab Interpretation Abnormal (test code = 70639-9) [facility] PAN[facility] (58718) (ALB,T.PRO,BILI T,BU/BC,ALT,AST,ALK PHOS)2021-11-14 17:45:53 Test Item Value Reference Range Interpretation Comments TOTAL BILI (test code = 5526869114) 5.8 mg/dL 0.1-1.1 H BILI UNCON (test code = 7209345238) 2.3 mg/dL 0.1-1.1 H BILI CONJ (test code = 6755042041) 0.7 mg/dL 0.0-0.3 H T PROTEIN (test code = 1052522827) 8.1 g/dL 6.3-8.2 ALBUMIN (test code = 0767417882) 3.5 g/dL 3.5-5.0 ALK PHOS (test code = 2033685039) 310 U/L 34-122 H ALTv (test code = 1742-6) 41 U/L 5-50 AST(SGOT) (test code = 9409144435) 145 U/L 13-40 H Lab Interpretation (test code = Abnormal 85354-9) [facility] METABOLIC PANEL (NA, K, CL, CO2, GLUCOSE, BUN, CREATININE, CA)2021-11-14 17:45:33 Test Item Value Reference Range Interpretation Comments NA (test code = 139 mmol/L 135-145 2070031779) K (test code = 3.4 mmol/L 3.5-5.0 L 6689634576) CL (test code = 105 mmol/L 98-108 8640557300) CO2 TOTAL (test code = 22 mmol/L 23-31 L 6089434562) AGAP (test code = 2-16 8959396076) BUN (test code = 6 mg/dL 7-23 L 2275276912) GLUCOSE (test code = 99 mg/dL 70-110 0294953054) CREATININE (test code = 0.81 mg/dL 0.60-1.25 0635448196) CALCIUM (test code = 7.8 mg/dL 8.6-10.6 L 1425037685) eGFR (test code = mL/min/1.73m2 4780781227) ROBERT (test code = ROBERT) Association of [...] tests). Lab Interpretation Abnormal (test code = 05690-2) [facility]2022-[facility]-21 17:45:32 Test Item Value Reference Range Interpretation Comments LIPASE (test code = 8232163632) 189 U/L 0-220 Lab Interpretation (test code = Normal 05703-8) [facility] blood hemoglobin measurement (mass/volume)2020-04-01 00:15:00 Test Item Value Reference Range Interpretation Comments Bedside Hemoglobin (test code = 13.9 g/dL 13.0-17.5 74304-9) [facility] blood hematocrit (volume fraction)2020-04-01 00:15:00 Test Item Value Reference Range Interpretation Comments Bedside Hematocrit (test code = 41.0 % 40.0-53.0 50921-6) [facility] whole blood sodium measurement (moles/volume)2020-04-01 00:15:00 Test Item Value Reference Range Interpretation Comments Bedside Sodium (test code = 136 mmol/L 136-145 93939-3) [facility] whole blood potassium measurement (moles/volume)2020-04-01 00:15:00 Test Item Value Reference Range Interpretation Comments Bedside Potassium (test code = 3.8 mmol/L 3.5-5.1 77611-5) [facility] whole blood chloride measurement (moles/volume)2020-04-01 00:15:00 Test Item Value Reference Range Interpretation Comments Bedside Chloride (test code = 101 mmol/L 100-112 45659-2) [facility] whole blood total carbon dioxide measurement (moles/volume)2020-04-01 00:15:00 Test Item Value Reference Range Interpretation Comments Bedside Total CO2 (test code = 23.0 mmol/L 24.0-33.0 2026-08) [facility] nitrogen (BUN) [facility] (mass/volume) 2020-04-01 00:15:00 Test Item Value Reference Range Interpretation Comments Bedside Blood Urea Nitrogen (test 12 mg/dL 6-20 code = 67009-0) [facility] (mass/volume)2020-04-01 00:15:00 Test Item Value Reference Range Interpretation Comments Bedside Creatinine (test code = 2.1 mg/dL 0.9-1.5 04776-3) [facility] glucose measurement (mass/volume)2020-04-01 00:15:00 Test Item Value Reference Range Interpretation Comments Bedside Glucose (test code = 99 mg/dL 60-100 95575-3) [facility] ionized calcium measurement (moles/volume)2020-04-01 00:15:00 Test Item Value Reference Range Interpretation Comments Bedside Whole Blood Ionized 0.99 mmol/L 1.12-1.32 Calcium (test code = 1994-3) [facility] anion [id number] 00:15:00 Test Item Value Reference Range Interpretation Comments Bedside Anion Gap (test code = 67387-3) 17 8-18 [facility] [id number] 00:15:00 Test Item Value Reference Range Interpretation Comments Estimat Glomerular Filtration Rate 37 73-125 (test code = 75912-5) [facility] (moles/volume)2020-04-01 00:15:00 Test Item Value Reference Range Interpretation Comments Bedside Sodium (test code = 136 mmol/L 14150-3) Venous whole blood potassium measurement (moles/volume)2020-04-01 00:15:00 Test Item Value Reference Range Interpretation Comments Bedside Potassium (test code = 3.8 mmol/L 49297-1) Venous whole blood chloride measurement (moles/volume)2020-04-01 00:15:00 Test Item Value Reference Range Interpretation Comments Bedside Chloride (test code = 101 mmol/L 69266-0) Venous whole blood total carbon dioxide measurement (moles/volume)2020-04-01 00:15:00 Test Item Value Reference Range Interpretation Comments Bedside Total CO2 (test code = 23.0 mmol/L 2026-08) Venous whole blood urea nitrogen (BUN) measurement (mass/volume)2020-04-01 00:15:00 Test Item Value Reference Range Interpretation Comments Bedside Blood Urea Nitrogen (test 12 mg/dL code = 21088-5) Blood creatinine measurement (mass/volume)2020-04-01 00:15:00 Test Item Value Reference Range Interpretation Comments Bedside Creatinine (test code = 2.1 mg/dL 80795-5) Venous whole blood glucose measurement (mass/volume)2020-04-01 00:15:00 Test Item Value Reference Range Interpretation Comments Bedside Glucose (test code = 99 mg/dL 87720-8) Whole blood ionized calcium measurement (moles/volume)2020-04-01 00:15:00 Test Item Value Reference Range Interpretation Comments Bedside Whole Blood Ionized 0.99 mmol/L Calcium (test code = 1994-3) Blood anion [id number] 00:15:00 Test Item Value Reference Range Interpretation Comments Bedside Anion Gap (test code = 94343-5) 17 GFR estimate [id number] 00:15:00 Test Item Value Reference Range Interpretation Comments Estimat Glomerular Filtration Rate 37 (test code = 00390-7) Venous blood hemoglobin measurement (mass/volume)2020-04-01 00:15:00 Test Item Value Reference Range Interpretation Comments Bedside Hemoglobin (test code = 13.9 g/dL 67885-6) Venous blood hematocrit (volume fraction)2020-04-01 00:15:00 Test Item Value Reference Range Interpretation Comments Bedside Hematocrit (test code = 41.0 % 28740-2) Venous blood lactic acid measurement (moles/volume)2020-04-01 00:10:00 Test Item Value Reference Range Interpretation Comments Bedside Lactic Acid Venous (test 1.74 mmol/L 0.50-2.20 code = 2519-7) [facility] blood lactic acid measurement (moles/volume)2020-04-01 00:10:00 [...] HealthAutomated erythrocyte mean corpuscular hemoglobin concentration measurement (mass/bop9274-19-45 11:50:00 Test Item Value Reference Range Interpretation Comments Mean Corpuscular Hemoglobin Concent 34.7 g/dL 33.0-37.0 (test code = 786-4) [facility] HealthAutomated erythrocyte distribution width wffue0180-50-63 11:50:00 Test Item Value Reference Range Interpretation Comments Red Cell Distribution Width (test code 12.8 % 10.7-14.5 = 788-0) [facility] HealthAutomated blood platelet count (count/volume)2020-03-31 11:50:00 Test Item Value Reference Range Interpretation Comments Platelet Count (test code = 105 10*3/uL 150-450 777-3) [facility] HealthAutomated blood platelet mean volume nkkrywttjfu6288-95-38 11:50:00 Test Item Value Reference Range Interpretation Comments Mean Platelet Volume (test code = 10.1 fL 5.7-10.7 11296-9) [facility] comment [id number] 11:50:00 Test Item Value Reference Range Interpretation Comments Manual Differential (test code = ----- 8265-1) [facility] HealthManual blood segmented neutrophils/100 dsaznxiuse5223-51-25 11:50:00 Test Item Value Reference Range Interpretation Comments Neutrophils % (Manual) (test code = 61 % 42-75 769-0) [facility] HealthManual blood lymphocytes/100 cgguykkrkh1646-48-09 11:50:00 Test Item Value Reference Range Interpretation Comments Lymphocytes % (Manual) (test code = 23 % 21-51 737-7) [facility] HealthManual blood monocytes/100 ogamoetwoq0037-90-57 11:50:00 Test Item Value Reference Range Interpretation Comments Monocytes % (Manual) (test code = 14 % 1-9 744-3) [facility] HealthManual blood eosinophil count as percentage of total leukocytes 2020-03-31 11:50:00 Test Item Value Reference Range Interpretation Comments Eosinophils % (Manual) (test code = 2 % 0-7 714-6) [facility] HealthBlood platelet detection by light vmxwljwtrn0690-24-65 11:50:00 Test Item Value Reference Range Interpretation Comments Platelet Estimate (test code = Decreased 9317-9) [facility] HealthBlood erythrocyte morphology finding dijisfsghcjhpo6615-16-62 11:50:00 Test Item Value Reference Range Interpretation [...] Level (test code = 19 mmol/L 2027-) [facility] HealthSerum or plasma anion gap determination (moles/volume)2020-03-31 11:50:00 Test Item Value Reference Range Interpretation Comments Anion Gap (test code = 43384-0) 18 8-18 [facility] HealthSerum or plasma urea nitrogen measurement (mass/volume)2020-03-31 11:50:00 Test Item Value Reference Range Interpretation Comments Blood Urea Nitrogen (test code = 11 mg/dL 05-17 3094-0) [facility] HealthSerum or plasma creatinine measurement (mass/volume)2020-03-31 11:50:00 Test Item Value Reference Range Interpretation Comments Creatinine (test code = 2160-0) 1.8 mg/dL 0.7-1.3 [facility] HealthGFR estimate [id number] 11:50:00 Test Item Value Reference Range Interpretation Comments Estimat Glomerular Filtration Rate 44 73-125 (test code = 79794-5) [facility] HealthSerum or plasma urea nitrogen/creatinine mass tkgvv5778-32-95 11:50:00 Test Item Value Reference Range Interpretation Comments BUN/Creatinine Ratio (test code = 6 3097-3) [facility] HealthSerum or plasma glucose measurement (mass/volume)2020-03-31 11:50:00 Test Item Value Reference Range Interpretation Comments Glucose Level (test code = 2345-7) 98 mg/dL 60-100 [facility] HealthOsmolality of Serum or Plasma by egdlnxmydop7534-56-74 11:50:00 Test Item Value Reference Range Interpretation Comments Calculated Osmolality (test code 269 mosm/kg = 42974-2) [facility] HealthSerum or plasma calcium measurement (mass/volume)2020-03-31 11:50:00 Test Item Value Reference Range Interpretation Comments Calcium Level (test code = 34326-3) 7.8 mg/dL 8.4-10.2 [facility] HealthSerum or plasma [...] Range Interpretation Comments Globulin (test code = 77009-4) 3.5 g/dL [facility] HealthSerum or plasma albumin/globulin mass axlbt3491-85-02 11:50:00 Test Item Value Reference Range Interpretation [...] % Automated erythrocyte mean corpuscular volume (MCV) hagcvwevmbi9647-60-00 11:50:00 Test Item Value Reference Range Interpretation Comments Mean Corpuscular Volume (test code = 98.4 fL 787-2) Automated erythrocyte mean corpuscular hemoglobin (mass per erythrocyte) 2020-03-31 11:50:00 Test Item Value Reference Range Interpretation Comments Mean Corpuscular Hemoglobin (test 34.1 pg code = 785-6) Automated erythrocyte mean corpuscular hemoglobin concentration measurement (mass/qiz1013-10-21 11:50:00 Test Item Value Reference Range Interpretation Comments Mean Corpuscular Hemoglobin Concent 34.7 g/dL (test code = 786-4) Automated erythrocyte distribution width mamuy3473-28-37 11:50:00 Test Item Value Reference Range Interpretation Comments Red Cell Distribution Width (test code 12.8 % = 788-0) Automated blood platelet count (count/volume)2020-03-31 11:50:00 Test Item Value Reference Range Interpretation Comments Platelet Count (test code = 105 10*3/uL 777-3) Automated blood platelet mean volume cdixdcubxfd7608-43-15 11:50:00 Test Item Value Reference Range Interpretation Comments Mean Platelet Volume (test code = 10.1 fL 31548-5) Service comment [id number] 11:50:00 Test Item Value Reference Range Interpretation Comments Manual Differential (test code = ----- 8265-1) Manual blood segmented neutrophils/100 whtncmoiqo0749-69-31 11:50:00 Test Item Value Reference Range Interpretation Comments Neutrophils % (Manual) (test code = 61 % 769-0) Manual blood lymphocytes/100 [id number] 11:50:00 Test Item Value Reference Range Interpretation Comments Lymphocytes % (Manual) (test code = 23 % 737-7) Manual blood monocytes/100 [id number] 11:50:00 Test Item Value Reference Range Interpretation Comments Monocytes % (Manual) (test code = 14 % 744-3) Manual blood eosinophil count as percentage of total [id number] 11:50:00 Test Item Value Reference Range Interpretation Comments Eosinophils % (Manual) (test code = 2 % 714-6) Blood platelet detection by light [id number] 11:50:00 Test Item Value Reference Range Interpretation Comments Platelet Estimate (test code = Decreased 9317-9) Blood erythrocyte morphology finding [id number] 11:50:00 Test Item Value Reference Range Interpretation [...] Interpretation Comments Anion Gap (test code = 46889-2) 18 Serum or plasma urea nitrogen measurement (mass/volume)2020-03-31 11:50:00 Test Item Value Reference Range Interpretation Comments Blood Urea Nitrogen (test code = 11 mg/dL 3094-0) Serum or plasma creatinine measurement (mass/volume)2020-03-31 11:50:00 Test Item Value Reference Range Interpretation Comments Creatinine (test code = 2160-0) 1.8 mg/dL GFR estimate [id number] 11:50:00 Test Item Value Reference Range Interpretation Comments Estimat Glomerular Filtration Rate 44 (test code = 96818-8) Serum or plasma urea nitrogen/creatinine mass [id number] 11:50:00 Test Item Value Reference Range Interpretation Comments BUN/Creatinine Ratio (test code = 6 3097-3) Serum or plasma glucose measurement (mass/volume)2020-03-31 11:50:00 Test Item Value Reference Range Interpretation Comments Glucose Level (test code = 2345-7) 98 mg/dL Osmolality of Serum or Plasma by [id number] 11:50:00 Test Item Value Reference Range Interpretation Comments Calculated Osmolality (test code 269 mosm/kg = 58959-5) Serum or plasma calcium measurement (mass/volume)2020-03-31 11:50:00 Test Item Value Reference Range Interpretation Comments Calcium Level (test code = 01782-5) 7.8 mg/dL Serum or plasma total bilirubin measurement (mass/volume)2020-03-31 11:50:00 Test Item Value Reference Range Interpretation Comments Total Bilirubin (test code = 0.8 mg/dL 1974-2) Serum or plasma total combined glucuronidated bilirubin and albumin bound bilirubin measurement (mass/volume)2020-03-31 11:50:00 Test Item Value Reference Range Interpretation Comments Direct Bilirubin (test code = 0.4 mg/dL 1967-7) Serum or plasma aspartate aminotransferase measurement (enzymatic [...] Range Interpretation Comments Globulin (test code = 76591-3) 3.5 g/dL Serum or plasma albumin/globulin mass [id number] 11:50:00 Test Item Value Reference Range Interpretation [...] = 3040-3) 299 U/L Urinalysis specimen collection [id number] 02:48:00 Test Item Value Reference Range Interpretation Comments Urine Source (test code = 07638-4) URINE [facility] [id number] 02:48:00 Test Item Value Reference Range Interpretation Comments Urine Color (test code = 5778-6) Yellow Yel-Dyan * [facility] clarity aqbtvhgctimfe0258-89-30 02:48:00 Test Item Value Reference Range Interpretation Comments Urine Appearance (test code = 06065-2) Clear Clear * [facility] pH measurement by automated test [id number] 02:48:00 Test Item Value Reference Range Interpretation Comments Urine pH (test code = 03227-1) 5.0 5.0-8.0 [facility] gravity of Urine by Automated test [id number] 02:48:00 Test Item Value Reference Range Interpretation Comments Urine Specific [place] (test code = 1.020 1.005-1.030 78614-4) [facility] protein measurement by automated test strip (mass/volume) 2020-03-31 02:48:00 Test Item Value Reference Range Interpretation Comments Urine Protein (test code = 03976-7) 100 mg/dL Negative * [facility] glucose measurement by automated test strip (mass/volume) 2020-03-31 02:48:00 Test Item Value Reference Range Interpretation Comments Urine Glucose (UA) (test code Negative mg/dL Negative * = 40372-2) [facility] ketones measurement by automated test strip (mass/volume) 2020-03-31 02:48:00 Test Item Value Reference Range Interpretation Comments Urine Ketones (test code = 33713-2) 15 mg/dL Negative * [facility] erythrocytes count by automated test strip (number/volume) 2020-03-31 02:48:00 Test Item Value Reference Range Interpretation Comments Urine Occult Blood (test Negative {Butch}/uL Negative * code = 34393-3) [facility] nitrite detection by automated test [id number] 02:48:00 Test Item Value Reference Range Interpretation Comments Urine Nitrite (test code = 49408-6) Negative Negative [facility] total bilirubin measurement by automated test strip (mass/volume)2020-03-31 02:48:00 Test Item Value Reference Range Interpretation Comments Urine Bilirubin (test code = 39280-8) 1 mg/dL Negative [facility]irmatory urine bilirubin [id number] 02:48:00 Test Item Value Reference Range Interpretation Comments Urine Ictotest (test code = 63305-5) Positive Negative [facility] urobilinogen measurement by automated test strip (mass/volume)2020-03-31 02:48:00 Test Item Value Reference Range Interpretation Comments Urine Urobilinogen (test code = 4.0 mg/dL 0.0-1.0 15018-2) [facility] leukocytes count by automated test strip (number/volume) 2020-03-31 02:48:00 Test Item Value Reference Range Interpretation Comments Urine Leukocyte Esterase (test 25 {Zohaib}/uL Negative code = 29910-1) [facility]sc[facility] examination of [id number] 02:48:00 Test Item Value Reference Range Interpretation Comments Microscopic Urinalysis (T) (test code = ----- 36273-1) [facility] sediment erythrocyte count by microscopy (number/high power field)2020-03-31 02:48:00 Test Item Value Reference Range Interpretation Comments Urine RBC (test code = None Seen /[HPF] 0-2 70932-3) [facility] sediment leukocyte count by microscopy [...] code = None Seen /[HPF] None * 61009-5) [facility] HealthAmorphous sediment detection in urine sediment by light [id number] 02:48:00 Test Item Value Reference Range Interpretation [...] (test 6-10 /[LPF] None * code = 77156-2) [facility] HealthYeast detection in urine sediment by light [id number] 02:48:00 Test Item Value Reference Range Interpretation Comments Urine Yeast (test code = None Seen /[HPF] None 43645-6) [facility] comment 02:48:00 Test Item Value [...] Indicated (test code = Not Ind 8264-4) [facility] [id number] 02:48:00 Test Item Value Reference Range Interpretation Comments Urine Source (test code = 53862-7) URINE Urine color [id number] 02:48:00 Test Item Value Reference Range Interpretation Comments Urine Color (test code = 5778-6) Yellow Urine clarity [id number] 02:48:00 Test Item Value Reference Range Interpretation Comments Urine Appearance (test code = 72575-5) Clear Urine pH measurement by automated test [id number] 02:48:00 Test Item Value Reference Range Interpretation Comments Urine pH (test code = 16162-9) 5.0 Specific gravity of Urine by Automated test [id number] 02:48:00 Test Item Value Reference Range Interpretation Comments Urine Specific [place] (test code = 1.020 09607-6) Urine protein measurement by automated test strip (mass/volume)2020-03-31 02:48:00 Test Item Value Reference Range Interpretation Comments Urine Protein (test code = 64059-9) 100 mg/dL Urine glucose measurement by automated test strip (mass/volume)2020-03-31 02:48:00 Test Item Value Reference Range Interpretation Comments Urine Glucose (UA) (test code Negative mg/dL = 79347-5) Urine ketones measurement by automated test strip (mass/volume)2020-03-31 02:48:00 Test Item Value Reference Range Interpretation Comments Urine Ketones (test code = 05765-8) 15 mg/dL Urine erythrocytes count by automated test strip (number/volume)2020-03-31 02:48:00 Test Item Value Reference Range Interpretation Comments Urine Occult Blood (test Negative {Butch}/uL code = 77829-2) Urine nitrite detection by automated test [id number] 02:48:00 Test Item Value Reference Range Interpretation Comments Urine Nitrite (test code = 37571-9) Negative Urine total bilirubin measurement by automated test strip (mass/volume) 2020-03-31 02:48:00 Test Item Value Reference Range Interpretation Comments Urine Bilirubin (test code = 79306-1) 1 mg/dL Confirmatory urine bilirubin [id number] 02:48:00 Test Item Value Reference Range Interpretation Comments Urine Ictotest (test code = 05821-1) Positive Urine urobilinogen measurement by automated test strip (mass/volume)2020-03-31 02:48:00 Test Item Value Reference Range Interpretation Comments Urine Urobilinogen (test code = 4.0 mg/dL 49596-8) Urine leukocytes count by automated test strip (number/volume)2020-03-31 02:48:00 Test Item Value Reference Range Interpretation Comments Urine Leukocyte Esterase (test 25 {Zohaib}/uL code = 06937-3) Microscopic examination of [id number] 02:48:00 Test Item Value Reference Range Interpretation Comments Microscopic Urinalysis (T) (test code = ----- 61999-7) Urine sediment erythrocyte count by microscopy (number/high power field) 2020-03-31 02:48:00 Test Item Value Reference Range Interpretation Comments Urine RBC (test code = None Seen /[HPF] 05231-8) Urine sediment leukocyte count by microscopy (number/high [...] Crystals (test code = None Seen /[HPF] 72997-3) Amorphous sediment detection in urine sediment by light [id number] 02:48:00 Test Item Value Reference Range Interpretation [...] Granular Casts (test 6-10 /[LPF] code = 38537-2) Yeast detection in urine sediment by light [id number] 02:48:00 Test Item Value Reference Range Interpretation Comments Urine Yeast (test code = None Seen /[HPF] 15762-5) Service comment 02:48:00 Test Item Value Reference Range Interpretation Comments Urinalysis Comment (test code = 8262-8) * Service comment 02:48:00 Test Item Value Reference Range Interpretation Comments Urine Culture Indicated (test code = Not Ind 8264-4)"
--- NOTE | 2022-10-22 14:44 | RAD REPORT ---
EXAM DESCRIPTION: RAD - Ankle Right 3 View - 10/22/2022 2:31 pm CLINICAL HISTORY: Pain. Fall COMPARISON: 04/06/2021. FINDINGS: Three views of the right ankle. Sequelae of tibiotalar arthrodesis via 2 cannulated screws. Numerous surgical clips present. Joint al ignment is maintained, with near complete ankylosis and osseous remodeling across the ankle joint. No evidence of hardware complications. Soft tissue swelling about the ankle, anterior lower leg, and do rsum of the foot. No evidence of an acute fracture, dislocation or periosteal reaction. No joint effu jean pierre seen. No joint space narrowing. IMPRESSION: No acute osseous abnormality. Soft tissue swelling with evidence of uncomplicated ankle arthrodesis as above.
--- NOTE | 2022-10-22 14:46 | RAD REPORT ---
EXAM DESCRIPTION: RAD - Tib Fib Right - 10/22/2022 2:31 pm CLINICAL HISTORY: Pain COMPARISON: None. FINDINGS: Two views of the right tibia and fibula. Metallic radiodensities, likely related to projectile foreign bodies are seen adjacent to the fibular head. No fracture is identified. There is no dislocation or periosteal reaction noted. No acute or s uspicious bony finding. Partially visualized sequelae of ankle joint arthrodesis, better evaluated on the dedicated right ank le radiographs. No foreign body or other soft tissue abnormality. IMPRESSION: No acute osseus abnormality. Findings as above.
--- NOTE | 2022-10-22 14:46 | RAD REPORT ---
EXAM DESCRIPTION: RAD - Foot Right 3 View - 10/22/2022 2:31 pm CLINICAL HISTORY: Pain COMPARISON: None. FINDINGS: Three views of the right foot. No fracture, dislocation or periosteal reaction. Prior sequelae of right ankle arthrodesis, better evaluated on dedicated right ankle radiographs. No air or foreign body in the soft tissues. Swelling along the dorsum of the foot. IMPRESSION: No acute osseus abnormality. Dorsal soft tissue swelling.
--- NOTE | 2022-10-22 14:49 | RAD REPORT ---
EXAM DESCRIPTION: RAD - Hand Right 3 View - 10/22/2022 2:31 pm CLINICAL HISTORY: Pain. Recent fall COMPARISON: 03/28/2019. FINDINGS: Three views of the right hand. 2 screws are noted along the base of the right second metacarpal. No change in alignment or evidence of complications. No fracture is identified. Stable deformity along the head/neck of the fifth metaca rpal, suggesting sequelae of remote trauma. There is no dislocation or periosteal reaction noted. No foreign body. Mild soft tissue swelling abou t the dorsum of the hand. IMPRESSION: Mild dorsal soft tissue swelling. No acute osseus abnormality. .
[2022-10-22] MEDS ORDERED: MORPHINE 2 MG/ML SYR ONE (15:05)
[2022-10-22] MEDS ORDERED: HYDROCODONE/APAP 5/325 MG TAB ONE (15:06)
--- NOTE | 2022-10-22 15:39 | ER ---
Nurse's Notes [facility] Name: Sung Brown Jr Age: 47 yrs Sex: Male : 1975 Arrival Date: 10/22/2022 Time: 13:59 Bed 16 Private MD: Diagnosis: Sprain of unspecified ligament of right ankle, initial encounter;Other sprain of right foot;Contusion of right lower leg Presentation: 10/22 14:01 Chief complaint: EMS states: MECHANICAL FALL FROM STANDING AT 0200 WITH R ANKLE bp DEFORMITY/PAIN. Coronavirus screen: At this time, the client does not indicate any symptoms associated with coronavirus-19. Ebola Screen: No symptoms or risks identified at this time. Initial Sepsis Screen: Does the patient meet any 2 criteria? HR > 90 bpm. No. Patient's initial sepsis screen is negative. Does the patient have a suspected source of infection? No. Patient's initial sepsis screen is negative. Risk Assessment: Do you want to hurt yourself or someone else? Patient reports no desire to harm self or others. Onset of symptoms was October 22, 2022 at 02:00. Care prior to arrival: Medication(s) given: 200 MCG FENTANYL IV initiated. 20 GA, in the left forearm. 14:01 Method Of Arrival: EMS: [facility] bp 14:01 Acuity: CINTIA 3 bp Triage Assessment: 14:04 General: Appears in no apparent distress. uncomfortable, Behavior is calm, cooperative, bp appropriate for age. Pain: Complains of pain in anterior aspect of right ankle. EENT: No deficits noted. Neuro: No deficits noted. Cardiovascular: No deficits noted. Respiratory: No deficits noted. GI: No signs and/or symptoms were reported involving the gastrointestinal system. : No signs and/or symptoms were reported regarding the genitourinary system. Derm: No deficits noted. Musculoskeletal: Bony deformity noted of anterior aspect of right ankle. Historical: - Allergies: 14:04 Lisinopril; bp - Home Meds: 14:04 Albuterol Inhl [Active]; budesonide-formoterol 160-4.5 mcg/actuation inhalation HFAA 2 bp puffs 2 times per day [Active]; esomeprazole magnesium 40 mg Oral grps 1 packet 2 times per day [Active]; fluoxetine 20 mg Oral cap 1 cap once daily [Active]; folic acid 1 mg Oral tab 1 tab once daily [Active]; furosemide 40 mg Oral tab 1 tab once daily [Active]; lorazepam 1 mg Oral tab once daily [Active]; Nystatin Oral [Active]; pantoprazole 20 mg Oral TbEC [Active]; Proctofoam HC Rectal [Active]; spironolactone 25 mg Oral tab 1 tab once daily [Active]; thiamine HCl (vitamin B1) 100 mg Oral tab [Active]; tramadol 50 mg Oral tab [Active]; - PMHx: 14:04 ADD/ADHD; WPW; Hepatitis; C; Hypertension; COPD; cirrhosis of liver; chronic idiopathic bp thrombocytopenia; - Immunization history:: Adult Immunizations up to date. - Social history:: Smoking status: Patient reports the use of cigarette tobacco products, unknown amount. - Family history:: not pertinent. - Hospitalizations: : No recent hospitalization is reported. Screenin:[address] [facility] ED Fall Risk Assessment (Adult) History of falling in the last 3 months, bp including since admission. Abuse screen: Denies threats or abuse. Denies injuries from another. Nutritional screening: No deficits noted. Tuberculosis screening: No symptoms or risk factors identified. Assessment: 14:06 General: SEE TRIAGE NOTE. bp 16:21 Reassessment: PT DC HOME VIA WHEELCHAIR WITH FAMILY. bp Vital Signs: 14:01 BP 145 / 75; Pulse 100; Resp 16; Temp 98; Pulse Ox 99% ; bp 15:12 BP 143 / 70; Pulse 100; Resp 16; Pulse Ox 100% ; bp 16:21 BP 118 / 65; Pulse 99; Resp 16; Pulse Ox 100% ; bp ED Course: 13:59 Patient arrived in ED. mm9 13:59 Anthony Andersen MD is Attending Physician. rn 14:01 Anant Huerta RN is Primary Nurse. bp 14:04 Triage completed. bp 14:04 Arm band placed on. bp 14:06 Patient has correct armband on for positive identification. Bed in low position. Call bp light in reach. Side rails up X2. 14:06 Maintain EMS IV. Dressing intact. Good blood return noted. Site clean \T\ dry. Gauge \T\ bp site: 20 GA R FA. 14:33 XRAY Foot RIGHT 3 View In Process Unspecified. EDMS 14:33 XRAY Ankle RIGHT 3 view In Process Unspecified. EDMS 14:33 XRAY Tib Fib RIGHT In Process Unspecified. EDMS 14:33 XRAY Hand RIGHT 3 View In Process Unspecified. EDMS 14:39 Warm blanket given. secured entrance monitor on. Pulse ox on. NIBP on. mm9 14:39 Diet: Patient is NPO. mm9 15:33 Ortho shoe applied to. mm9 16:21 No provider procedures requiring assistance completed. IV discontinued, intact, bp bleeding controlled, No redness/swelling at site. Pressure dressing applied. Administered Medications: 15:12 Drug: morphine 2 mg Route: IVP; Infused Over: 4 mins; Site: left forearm; bp 16:22 Follow up: Response: No adverse reaction bp 15:12 Drug: HYDROcodone-acetaminophen 5 mg-325 mg 1 tabs Route: PO; bp 16:22 Follow up: Response: No adverse reaction bp Medication: 14:06 VIS not applicable for this client. bp Outcome: 15:39 Discharge ordered by . rn 16:21 Discharged to home via wheelchair, with family. bp 16:21 Condition: stable 16:21 Discharge instructions given to patient, family, Instructed on discharge instructions, follow up and referral plans. Demonstrated understanding of instructions, follow-up care, splint care. 16:23 Patient left the ED. bp Signatures: Dispatcher [employer] Anthony Ocampo MD MD rn Peltier, Brian, RN Libby Pitts mm9
--- NOTE | 2022-10-22 15:39 | EDPHYS ---
Physician Documentation [facility] Name: Sung Brown Jr Age: 47 yrs Sex: Male : 1975 Arrival Date: 10/22/2022 Time: 13:59 Bed 16 Private MD: ED Physician Anthony Andersen HPI: 10/22 15:17 This 47 yrs old Male presents to ER via EMS with complaints of fall, ankle pain, hand rn pain. 15:17 The patient presents with pain, that is acute. The complaints affect the right ankle. rn The complaints affect the right foot. Onset: The symptoms/episode began/occurred last night. Associated signs and symptoms: Pertinent positives: swelling, Pertinent negatives: fever, warmth, weakness. Modifying factors: The symptoms are alleviated by nothing, the symptoms are aggravated by weight bearing, movement. Severity of symptoms: At their worst the symptoms were. 15:23 The patient has experienced a previous episode. The patient has not recently seen a rn physician. Pt reports mis-step last night, injured right ankle and foot. No other injury. Has had previous surgeries to both ankles, reports swelling and pain with weight bearing. . Historical: - Allergies: 14:04 Lisinopril; bp - Home Meds: 14:04 Albuterol Inhl [Active]; budesonide-formoterol 160-4.5 mcg/actuation inhalation HFAA 2 bp puffs 2 times per day [Active]; esomeprazole magnesium 40 mg Oral grps 1 packet 2 times per day [Active]; fluoxetine 20 mg Oral cap 1 cap once daily [Active]; folic acid 1 mg Oral tab 1 tab once daily [Active]; furosemide 40 mg Oral tab 1 tab once daily [Active]; lorazepam 1 mg Oral tab once daily [Active]; Nystatin Oral [Active]; pantoprazole 20 mg Oral TbEC [Active]; Proctofoam HC Rectal [Active]; spironolactone 25 mg Oral tab 1 tab once daily [Active]; thiamine HCl (vitamin B1) 100 mg Oral tab [Active]; tramadol 50 mg Oral tab [Active]; - PMHx: 14:04 ADD/ADHD; WPW; Hepatitis; C; Hypertension; COPD; cirrhosis of liver; chronic idiopathic bp thrombocytopenia; - Immunization history:: Adult Immunizations up to date. - Social history:: Smoking status: Patient reports the use of cigarette tobacco products, unknown amount. - Family history:: not pertinent. - Hospitalizations: : No recent hospitalization is reported. ROS: 15:23 Constitutional: Negative for fever, chills, and weight loss, Cardiovascular: Negative rn for chest pain, palpitations, and edema, Respiratory: Negative for shortness of breath, cough, wheezing, and pleuritic chest pain, Abdomen/GI: Negative for abdominal pain, nausea, vomiting, diarrhea, and constipation, Back: Negative for injury and pain, MS/Extremity: + injury and swelling to right ankle Skin: + bruising to RLE Neuro: Negative for headache, weakness, numbness, tingling, and seizure. Exam: 15:23 Constitutional: This is a well developed, well nourished patient who is awake, alert, rn and in no acute distress. Head/Face: Normocephalic, atraumatic. Neck: Supple, full range of motion without nuchal rigidity, or vertebral point tenderness. Cardiovascular: Regular rate and rhythm. No pulse deficits. Respiratory: No increased work of breathing, no retractions or nasal flaring. Skin: Warm, dry MS/ Extremity: Pulses equal, no cyanosis. Neurovascular intact. + mild swelling and ecchymosis along right lateral ankle and foot, No open wounds, no crepitus. Vital Signs: 14:01 BP 145 / 75; Pulse 100; Resp 16; Temp 98; Pulse Ox 99% ; bp 15:12 BP 143 / 70; Pulse 100; Resp 16; Pulse Ox 100% ; bp 16:21 BP 118 / 65; Pulse 99; Resp 16; Pulse Ox 100% ; bp MDM: 13:59 Patient medically screened. rn 15:23 Differential diagnosis: fracture, sprain. Data reviewed: vital signs, nurses notes, geoscience laboratory technician test result(s), radiologic studies, and as a result, I will discharge patient. Independent interpretation of the following test(s) in the Emergency Department X-Ray: My interpretation is Xray right foot/ankle/tib fib/hand images all negative for acute fracture or dislocation per my interpretations.. Counseling: I had a detailed discussion with the patient and/or guardian regarding: the historical points, exam findings, and any diagnostic results supporting the discharge/admit diagnosis, radiology results, the need for outpatient follow up, to return to the emergency department if symptoms worsen or persist or if there are any questions or concerns that arise at home. Response to treatment: the patient's symptoms have mildly improved after treatment, and as a result, I will discharge patient. Special discussion: I discussed with the patient/guardian in detail that at this point there is no indication for admission to the hospital. It is understood, however, that if the symptoms persist or worsen the patient needs to return immediately for re-evaluation. 10/22 14:03 Order name: XRAY Foot RIGHT 3 View; Complete Time: 14:58 rn 10/22 14:03 Order name: XRAY Ankle RIGHT 3 view; Complete Time: 14:58 rn 10/22 14:03 Order name: XRAY Tib Fib RIGHT; Complete Time: 14:58 rn 10/22 14:03 Order name: XRAY Hand RIGHT 3 View; Complete Time: 14:58 rn 10/22 14:04 Order name: IV Start; Complete Time: 14:06 rn 10/22 14:04 Order name: NPO; Complete Time: 14:07 rn 10/22 15:14 Order name: Walking boot; Complete Time: 15:33 rn Administered Medications: 15:12 Drug: morphine 2 mg Route: IVP; Infused Over: 4 mins; Site: left forearm; bp 16:22 Follow up: Response: No adverse reaction bp 15:12 Drug: HYDROcodone-acetaminophen 5 mg-325 mg 1 tabs Route: PO; bp 16:22 Follow up: Response: No adverse reaction bp Disposition Summary: 10/22/22 15:39 Discharge Ordered Location: Home rn Problem: new rn Symptoms: have improved rn Condition: Stable rn Diagnosis - Sprain of unspecified ligament of right ankle, initial encounter rn - Other sprain of right foot rn - Contusion of right lower leg rn Followup: rn - With: Private Physician - When: As needed - Reason: Recheck today's complaints, Re-evaluation by your physician Discharge Instructions: - Discharge Summary Sheet rn - Ankle Sprain rn - Contusion rn Forms: - Medication Reconciliation Form rn - Thank You Letter rn - Antibiotic contemporary or modern dancer - Prescription Opioid Use rn Signatures: Dispatcher [employer] Anthony Ocampo MD MD rn Peltier, Brian, RN RN bp
[2022-10-22 16:37] VITALS: TEMP 98
[2022-10-22 16:38] VITALS: O2SAT 100
[2022-10-22 16:39] VITALS: BP 118/65
== END 2022-10-22 16:23 | disposition home or self-care (01) ==
LOC: ER 13:56
DX: S93.401A Sprain of unspecified ligament of right ankle, initial encounter (principal); S93.691A Other sprain of right foot, initial encounter; S80.11XA Contusion of right lower leg, initial encounter; M79.641 Pain in right hand; I10 Essential (primary) hypertension; Z88.8 Allergy status to other drugs, medicaments and biological substances; Z72.0 Tobacco use
CPT/HCPCS: 73130; 73630; 73590; 73610; 96374; 99284; J2270

== ENCOUNTER 2022-10-24 16:31 | Inpatient (IN) | payer OTHER ==
[2022-10-24] MEDS ORDERED: LORazepam 2 MG/ML VIAL ONE ×4 (16:35→23:18)
--- OUTSIDE RECORDS SUMMARY | 2022-10-24 16:37 | XMS REPORT | Continuity of Care Document ---
:1975 Author Organization [facility] t Address [address] [place] [address]. [address] [place] [address] Care Team Providers Name Role Phone FOUND, PCP NOT Primary Care Physician Unavailable Jennifer Pope Attending Clinician Unavailable SARKIS ZAMUDIO Attending Clinician Unavailable ESE HUTTON Attending Clinician Unavailable Ese Hutton MD Attending Clinician MEGA DESHPANDE Attending Clinician Unavailable Mega Deshpande MD Attending Clinician CROW MALDONADO Attending Clinician Unavailable LAB90 Attending Clinician Unavailable Sarkis Zamudio DO Attending Clinician Crow Maldonado MD Attending Clinician [phone] Matt ECHEVERRIA, [place] Attending Clinician Kiran CELIS, Ivana Attending Clinician Unavailable JO MEJIA Attending Clinician Unavailable Solomon Almeida Attending Clinician Jackie BURGESS, Jo Attending Clinician Ginette Gonzalez Attending Clinician Dang BURGESS, Corbin Attending Clinician CORBIN ROUSSEAU Attending Clinician Unavailable Deven BURGESS, Angel Attending Clinician Doctor Unassigned, [place] Attending Clinician Unavailable MEGA DESHPANDE Admitting Clinician Unavailable JO MEIJA Admitting Clinician Unavailable Jackie BURGESS, Jo Admitting Clinician Dang BURGESS, Corbin Admitting Clinician CORBIN ROUSSEAU Admitting Clinician Unavailable Payers Payer Name Policy Type Policy Number Effective Date Expiration Date Neda vanda ROSARIO SILVESTRE DUAL 7 [id number] 2022 COMPLETE 00:00:00 CAP(HMO D-SNP OA) MONCHO CONTRERAS [facility] [id number] 2022-08-27 O 00:00:00 MEDICAID [id number] 2018-07-27 [place] 00:[place]00 MONCHO SILVESTRE 5 [id number] 2022-08-27 00:00:00 [facility] [id number] [facility] MEDICARE MB [id number] 2004-03-27 [facility] NOVITAS 00:00:00 [facility] Problems Condition Condition Condition Status Onset [...] Externa l Coagulatio Coagulatio Disease Active K arron n disorder n disorder 05-02 Se ybold 00:00: - 00 Externa l Masses of Masses of Disease Active Art sey both both 05-02 Seybold breasts breasts 00:00: - 00 Externa l Alcohol Alcohol Disease Active Maribeth abuse abuse 05-02 Seybold 00:00: - 00 Externa l History of History of Disease Active K arron hepatitis hepatitis 05-02 Seyb old C [...] 00 Externa l Gastroesop Gastroesop Disease Active K arron hageal hageal 05-02 Seybold reflux reflux 00:00: - disease disease 00 Externa without without l esophagiti esophagiti s s Current Current Disease Active Maribeth mild mild 05-02 Seybold episode of episode of 00:00: - major major 00 Externa depressive depressive l disorder disorder without without prior prior episode episode Gynecomast Gynecomast Disease Active K arron ia, male ia, male 05-02 Seybol d 00:00: - 00 Externa l Pneumonia Pneumonia Disease Active Uni vers 3-21 ity of 00:: [facility] NSVT NSVT Disease Active Univers (nonsustai (nonsustai 3-11 it y of karla karla 00:: [place] ventricula ventricula 00 Me dical r r Branch tachycardi tachycardi a) a) Obesity Obesity Disease Active Univers (BMI (BMI 3-10 ity of 30-39.9) 30-39.9) 00:: Medical Branch Cigarette Cigarette Disease Active Uni vers smoker smoker 3-10 ity of 00:: [facility] Alcohol Alcohol Disease Active Univers use use 3-10 ity of 00:: [facility] Primary Primary Disease Active Univers hypertensi hypertensi 3-10 it y of on on 00:: Medical Branch Hypocalcem Hypocalcem Disease Active U nivers ia ia 3-10 ity of 00:: [facility] Chest pain Chest pain Disease Active U nivers in adult in adult 3-09 ity of 00:: [facility] Problem Condition [facility] Hypertensi Hypertensi Problem Active C ommon on on Spirit [facility] 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 - [facility] [id number] Anxiety Problem Active Common [facility] [id number] Alcoholism Problem Active Comm on Spirit [facility] Gastroesop GERD Problem Active Commo n hageal (gastroeso Spirit reflux phageal - [facility]I disease reflux St disease) [facility] Nicotine Nicotine Problem Active Commo n dependence dependence Sp senait - [facility] Alcoholic Alcoholic Problem Active Com mon fatty fatty Spirit liver liver - [facility] [id number] Depression Problem Active Co mmon with Spirit anxiety - [facility] COPD - COPD Problem Active Common Chronic (chronic Spirit obstructiv obstructiv - [facility] e e pulmonary pulmonary [place] s disease disease) [facility] Allergies, Adverse Reactions, Alerts Allergy Allergy Status Severity Reaction(s) Onset Inactive Treating Comm ents Source Name Type Date Date Clinician Lisinopr Propensi Active Other Maribeth il ty to 819 reaction( Seybold adverse 00:00: s): - reaction 00 severe Externa s fatigue l lisinopr lisinopr Active severe Common il il fatigue Spirit - [facility] NO KNOWN Drug Active [facility] Social History Social Habit Start Date Stop Date Quantity Comments Source History of Current Smoker Common Spi rit - Tobacco Use [facility] Sex Assigned At Common Sp senait - [facility] Exposure to 2022-10-14 2022-10-24 Not sure [facility] SARS-CoV-2 00:00:00 01:57:00 [facility] (event) Branch Alcohol intake 2022-10-24 2022-10-24 Current drinker Unive rsity of 00:00:00 00:00:00 of alcohol [facility] (finding) Branch Tobacco use and 2021-11-02 2021-11-02 Smokeless tobacco Un iversity of exposure 00:00:00 00:00:00 non-user [facility] Education 2021-11-02 2021-11-02 15 University of 00:00:00 00:00:00 [facility] Smoking Status Start Date Stop Date Source Unknown if ever smoked [facility] Smokes tobacco daily 2021-11-02 00:00:00 [facility] Ordered Filled Start Stop Current Ordering Indication Dosage Frequency Signature Comments Components Source Medication Medication Date Date Medication? Clinician (SIG) Name Name FENTanyl PF No 50ug 50 mcg, Un bill (SUBLIMAZE 10-24 Intramuscu it y of (PF)) 08:15: 08:08 lar, ONCE, [place] injection 00 :00 1 dose, On Medi dyana 50 mcg Sun Branch 10/24/22 at 0215, STAT traMADoL 2022- No 50mg 50 mg, Univer s (ULTRAM) 10-24 Oral, ONCE ity of tablet 50 08:00: 07:30 NOW, 1 [place] mg 00 :00 dose, On Medical Tue Branch 10/24/22 at 0200, Routine traMADoL 50 0 Yes [id number] 50mg Take 1 Univ ers mg tablet 10-24 tablet by ity o f 00:00: mouth [place] 00 every 8 Medical (eight) Branch hours as needed for Pain (scale 4-6). Indication s: acute pain Nystatin 2022- Yes [id number] Take 5 mL Maribeth (Nystatin) 10-12 (500,000 Seyb old [id number] 00:00: 05:59 units - UNIT/ML 00 :00 [...] [place] mg 00 :00 dose, On Medical Sun09/27/22 Branch at 2330, STAT Tramadol Yes 50mg Q.25D Take 50 mg Ke lsey HCl 09-28 by mouth Seybold (ULTRAM) 50 00:00: every 6 - MG oral 00 hours as Externa Tablet needed l traMADoL Yes [id number] 50mg Take 1 Univers (ULTRAM) 50 2-02 tablet by ity of mg tablet 00:00: mouth [place] 00 every 6 Medical (six) Branch hours as needed for Pain (scale 7-10). Indication s: acute pain traMADoL 2022- No [id number] 50mg Take 1 Univer s (ULTRAM) 50 2-02 02-28 tablet by it y of mg tablet 00:00: 00:00 mouth [place] 00 :00 every 6 Medical (six) Branch hours as [...] - 00 Externa l Esomeprazol 2021-08 Yes [id number] 40mg Take 1 Maribeth e Magnesium 0-06 [...] HR 48 Externa l Nystatin 2021-08- No [id number] Take 5 mL Maribeth (Nystatin) 0-04 10-12 (500,000 Seyb old [id number] 00:00: 04:59 units - UNIT/ML 00 :00 total) by Externa mouth/throa mouth 4 l t times Suspension daily for 7 days Furosemide Yes [id number] 40mg QD Take 1 K elsey 40 MG oral 9-06 tablet (40 Sey bold Tablet 00:00: mg total) - 00 by mouth Externa daily as l needed (edema) FOR 30 DAYS Esomeprazol Yes [id number] 40mg Take 1 Maribeth e Magnesium 9-06 capsule Seybo ld 40 MG oral 00:00: (40 mg - Delayed 00 total) by Externa Release mouth l Capsule every morning (before breakfast) Thiamine Yes [id number] 100mg Take 1 Ke lsey HCl 100 MG 9-06 tablet Seybold oral Tablet 00:00: (100 mg - 00 total) by Externa mouth l daily Fluoxetine Yes [id number] 20mg Take 1 K elsey HCl 20 MG 9-06 capsule Seybold oral 00:00: (20 mg - Capsule 00 total) by Externa mouth l daily Furosemide Yes [id number] 40mg QD Take 1 K elsey 40 MG oral 9-06 tablet (40 Sey bold Tablet 00:00: mg total) - 00 by mouth Externa daily as l needed (edema) FOR 30 DAYS Thiamine Yes [id number] 100mg Take 1 Ke lsey HCl 100 MG 9-06 tablet Seybold oral Tablet 00:00: (100 mg - 00 total) by Externa mouth l daily Fluoxetine Yes [id number] 20mg Take 1 K elsey HCl 20 MG 9-06 capsule Seybold oral 00:00: (20 mg - Capsule 00 total) by Externa mouth l daily Carvedilol 2021- No [id number] 25mg Take 8 Maribeth (Coreg) 9- 10-04 tablets Seybold 3.125 MG 00:00: 00:00 (25 mg - oral Tablet 00 :00 total) by Ext lilia mouth in l the morning and 8 tablets (25 mg total) in the evening. Take with meals. spironolact 2021- No [id number] 100mg Take 1 Univers one 100 mg 3-24 04-24 tablet by ity of tablet 00:00: 04:59 mouth [place] 00 :00 daily for Medical 30 days. [place] spironolact 2021- No [id number] 100mg Take 1 Univers one 100 mg 3-24 04-24 tablet by ity of tablet 00:00: 04:59 mouth [place] 00 :00 daily for Medical 30 days. Branch levoFLOXaci 2021- No [id number] 750mg Take 1 Univers n 750 mg 3-24 03-28 tablet by ity o f tablet 00:00: 04:59 mouth [place] 00 :00 daily for Medical 3 days. Branch levoFLOXaci 2021- No [id number] 750mg Take 1 Univers n 750 mg [...] by ity of tablet 13:46: 00:00 mouth [place] 01 :00 daily. Medical Branch foLIC acid 2021- No 1mg Take 1 mg U nivers 1 mg tablet 11-16 by mouth ity of 13:46: 00:00 daily. [place] 01 :00 Medical Branch morpHINE 2021- No 2mg 2 mg, Slow Un bill injection 2 11-16 IV Push, ity of mg 04:15: 03:30 ONCE, 1 [place] 00 :00 dose, On [facility] Branch 11/15/21 at 2315, Routine oxazepam 2021- [...] on Sun11/17/21 at 0230, Last dose on [place] 11/17/21 at 1430, Routine [Order 2 End] nicotine 14 2021- No [id number] 1{patch Apply 1 Univers mg/24 hr 11-16 } Patch to ity of patch 00:00: 04:59 area(s) [place] 00 :00 every 24 Medical (twenty-fo Branch ur) hours for 30 days. furosemide 2021- No [id number] 40mg Take 1 U nivers 40 mg 11-16 tablet by ity of tablet 00:00: 04:59 mouth [place] 00 :00 every Medical morning Branch and evening for 30 days. nicotine 14 2021- No [id number] 1{patch Apply 1 Univers mg/24 hr 11-16 } Patch to ity of patch 00:00: 04:59 area(s) [place] 00 :00 every 24 Medical (twenty-fo Branch ur) hours for 30 days. furosemide 2021- No [id number] 40mg Take 1 U nivers 40 mg 11-16 tablet by ity of tablet 00:00: 04:59 mouth [place] 00 :00 every Medical morning Branch and evening for 30 days. KCL 2021- No 40meq 40 mEq, Univers (KLOR-CON 11-15 Oral, ity of M20) tablet 14:45: 13:42 [place]CE[place] 1 [place] 40 mEq 00 :00 dose, On Medical [facility] 11/15/21 at 0945, Routine magnesium 2021- No 2g 2 g, IV Univ ers sulfate in 11-15 Piggyback, it y of water 2 14:45: 14:45 Administer Paul as gram/50 mL 00 :00 over 60 Medica l (4 %) Minutes, Branch infusion 2 ONCE, 1 g dose, On [facility] 11/15/21 at 0945, Routine foLIC acid 2021-0 Yes 1mg 1 mg, Univer s (FOLATE) 11-15 Oral, ity of tablet 1 mg 14:00: DAILY, [place] 00 First dose Medical on [facility] 11/15/21 at 0900, Until Discontinu ed, Routine thiamine 2021- Yes 100mg 100 mg, Unive rs (VITAMIN 11-15 Oral, ity of B1) tablet 14:00: DAILY, [place] 100 mg 00 First dose Medical on Sun Branch 11/15/21 at 0900, Until Discontinu ed, Routine levoFLOXaci 0 2021- No 750mg 750 mg, U nivers n [...] of Breath, Bronchospa sm, Chest tightness codeine-gua 0 Yes 5mL 5 mL, Unive rs ifenesin 11-15 Oral, ity of (ROBITUSSIN 07:26: Q4HPRN, Paul as AC) 10-100 32 Starting Medic al mg/5 mL on Sun Branch oral 11/15/21 at solution 5 0226, mL Until Discontinu ed, Routine, Cough nicotine 0 Yes 1{patch 1 Patch, Un bill (NICODERM) 11-15 } Topical, ity o f 14 mg/24 hr 04:15: Administer [place] patch 1 00 over 24 Medical Patch Hours, Branch Q24H, First dose on Sun11/14/21 at 2315, Until Discontinu ed, Routine LORazepam Yes 1mg 1 mg, Slow Un bill (ATIVAN) 11-15 IV Push, ity of injection 1 01:18: Q4HPRN, Paul as mg 32 Starting Medical on Sun Branch 11/14/21 at 2018, Until Discontinu ed, Routine, Anxiety, Agitation, Seizures, Sedation, alcohol withdrawal syndrome oxazepam 0 Yes 15mg 15 mg, Univers (SERAX) 11-15 Oral, ity of capsule 15 01:18: Q4HPRN, [place] mg 19 Starting Medical on Sun Branch 11/14/21 at 2018, Until Discontinu ed, Routine, Only while awake for DBP equal to or greater than 100, HR equal to or greater than 100. furosemide 2021- No 20mg 20 mg, Univ ers (LASIX) 11-15 Slow IV ity of injection 01:00: 03:21 Push, [place] 20 mg 00 :23 Q12H, Medical First dose Branch on Sun11/14/21 at 2000, Until Discontinu ed, Routine spironolact Yes 100mg 100 mg, Un bill one 11-14 Oral, ity of (ALDACTONE) 20:15: DAILY, [place] tablet 100 00 First dose Med ical mg on Sun Branch 11/14/21 at 1515, Until Discontinu ed, Routine ondansetron Yes 4mg 4 mg, Slow Univers (ZOFRAN 11-14 IV Push, ity of (PF)) 19:58: [place], [place] injection 4 19 Starting Medi dyana mg on Sun11/14/21 at 1458, Until Discontinu ed, Routine, Nausea and Vomiting (N/V) morpHINE 0 2021- No 4mg 4 mg, Slow Un bill injection 4 11-14 IV Push, ity of mg 19:58: 19:57 [facility], [place] 17 :17 Starting Medical on Sun Branch 11/14/21 at 1458, Until Sun11/15/21 at 1457, Routine, Pain (scale 7-10) HYDROcodone 2021-0 2022- No 1{tbl} 1 tablet, Univers -acetaminop 11-14 Oral, ity of hen (NORCO 19:58: 19:57 Q6HPRN, Paul as 5) 5-325 mg 15 :15 Starting Medi dyana tablet 1 on Mon Branch tablet 11/14/21 at 1458, Until 11/16/21 at 1457, Routine, Pain (scale 4-6) acetaminoph Yes 650mg 650 mg, Un bill en 11-14 Oral, ity of (TYLENOL) 19:58: Q6HPRN, [place] tablet 650 08 Starting Medic al mg on Mon Branch 11/14/21 at 1458, Until Discontinu ed, Routine, Pain (scale 1-3) KCL 2021- No 40meq 40 mEq, Univers (KLOR-CON 11-14 Oral, ity of M20) tablet 19:15: 18:32 ONCE[place] 1 [place] 40 mEq 00 :00 dose, On Medical [facility] Branch 11/14/21 at 1415, PHYLLIS furosemide 2021- No 40mg 40 mg, IV U nivers (LASIX) 11-14 Push, ity of injection 19:15: 18:32 ONCE, 1 [place] 40 mg 00 :00 dose, On Medical [facility] Branch 11/14/21 at 1415, PHYLLIS azithromyci 2021- No 500mg 500 mg, IV Univers n 11-14 Piggyback, ity of (ZITHROMAX) 19:00: 19:40 [place]CE[place] 1 [place] 500 mg in 00 :00 dose, On Medica l NaCl 0.9% [facility] (NS) 250 mL 11/14/21 at VIAL-MATE 1400, [...] 1 Medical (NS) 50 mL dose, On Bran h MINI-BAG 11/14/21 at 1400, Administer over 30 Minutes, 50 mL
Reas on for Anti-Infec tive: Empiric Therapy for Suspected Infection< br>Empiric Therapy Site: Respirator y
Durat ion of therapy: 72 hours ondansetron No 4mg 4 mg, Slow Univers (ZOFRAN 11-14 IV Push, ity of (PF)) 18:45: 17:37 ONCE, 1 [place] injection 4 00 :00 dose, On Medi dyana mg Mon Branch 11/14/21 at 1345, PHYLLIS morpHINE 2021- No 4mg 4 mg, Slow Un bill injection 4 11-14 IV Push, ity of mg 18:45: 17:37 ONCE, 1 [place] 00 :00 dose, On Medical Mon Branch 11/14/21 at 1345, STAT No known No Univers medications 11-14 ity of 17:39: [place] 29 [facility] Branch Omeprazole Omeprazole Yes Jennifer 1 capsule Common 1-29 [place] 30 minutes Spirit 00:00: before - [facility] 00 morning [facility] HydrOXYzine HydrOXYzine Yes Jennifer 1 tablet Common HCl HCl 8-20 [place] as needed Spirit 00:00: - [facility] Escitalopra Escitalopra Yes Jennifer 1 tablet Common m Oxalate m Oxalate 7-15 [place] Spir it 00:00: - [facility] Escitalopra Escitalopra No 1{table QD Escitalopr m Oxalate m Oxalate 7-15 t} am Oxalate 10 MG 10 MG 00:00: 10 MG 00 Albuterol Albuterol Yes Jennifer 3 ml as C ommon Sulfate Sulfate [place] needed Spirit - [facility] Esomeprazol Esomeprazol Yes Jennifer TAKE 1 Common e Magnesium e Magnesium [place] CAPSULE BY Spirit MOUTH - CHI EVERY DAY [facility] Symbicort Symbicort Yes Jennifer inhale 2 Common [place] puffs by Spirit mouth - CHI twice [facility] Viberzi Viberzi Yes Jennifer 1 tablet Comm on [place] with food [facility] Proctofoam Proctofoam Yes Jennifer 1 Co mmon HC HC [place] applicatio Spirit n as - [facility]I needed [facility] Gabapentin Gabapentin Yes Jennifer TAKE ONE Common [place] CAPSULE BY Spirit MOUTH 3 - CHI TIMES A [facility] Losartan Losartan Yes Jennifer TAKE 1 Comm on Potassium Potassium [place] TABLET BY Spirit MOUTH - CHI EVERY DAY [facility] Albuterol No 2 CHRISTU (Proair Hfa [...] CHRISTU (Folvite) 1 S Mg TAB Health Ventolin Ventolin Yes Jennifer 2 puffs Com mon HFA HFA [place] inhaled Spirit every 4-6 - CHI hours as [facility] Losartan No 50mg Daily [facility]U Potassium S (Cozaar) 50 Health Mg TAB Omeprazole No 40mg Daily [facility]RI[facility]U (Prilosec) S 40 Mg CPDR Health Thiamine No 100mg Daily [facility] Hcl S (Vitamin Health B-1) 100 Mg TAB Chlordiazep Chlordiazep Yes Jennifer (Schedule Common oxide HCl oxide HCl [place] IV Drug) Spirit TK 1 C PO - CHI TID [facility] Nicotine Nicotine Yes Jennifer 1 patch to Common [place] skin Spirit - [facility]I [facility] Albuterol No 2 CHRISTU (Proair Hfa S - Inh) 8 Gm [place] [facility] Carvedilol No 25mg [facility] (Coreg) 25 S - Mg TAB [place] [facility] Chlordiazep No 25mg [facility] oxide S - (Librium) [place] 25 Mg [facility] Fluoxetine No 20mg [facility] Hcl S - (Prozac) 20 [place] Mg CAP [facility] Carvedilol Carvedilol Yes Jennifer 1 tab(s) 2 Common [place] times a Spirit day orally - [facility] Folic Acid No 1mg CHRISTU (Folvite) 1 S - Mg TAB [place] [facility] Losartan No 50mg [facility] Potassium S - (Cozaar) 50 [place] Mg TAB [facility] Omeprazole No 40mg [facility]RISTU (Prilosec) S - 40 Mg CPDR [place] [facility] Thiamine No 100mg [facility]U Hcl S - (Vitamin [place] B-1) 100 Mg Memoria TAB l Hospita l Losartan Losartan No QD Losartan Potassium Potassium [...] Immunizations Ordered Filled Immunization Date Status Comments [facility] e Immunization Name Name SARS-COV-2 COVID-19 2021-07-15 Completed Unive rsity of PFIZER VACCINE 00:00:00 [facility] SARS-COV-2 COVID-19 2021-07-15 Completed Unive rsity of PFIZER VACCINE 00:00:00 [facility] SARS-COV-2 COVID-19 2021-07-15 Completed Unive rsity of PFIZER VACCINE 00:00:00 [facility] SARS-COV-2 COVID-19 2021-07-15 Completed Unive rsity of PFIZER VACCINE 00:00:00 [facility] SARS-COV-2 COVID-19 2021-07-15 Completed Unive rsity of PFIZER VACCINE 00:00:00 [facility] Influenza Virus 2021-05-06 Completed Maribeth Se ybold - Vaccine, 00:00:00 External Unspecified Formulation Influenza Virus 2021-05-06 Completed Maribeth Schrader ybold - Vaccine, 00:00:00 External Unspecified Formulation Influenza Virus 2021-05-06 Completed Universit y of Vaccine 00:00:00 [facility] Influenza Virus 2021-05-06 Completed Universit y of Vaccine 00:00:00 [facility] Influenza Virus 2021-05-06 Completed Universit y of Vaccine 00:00:00 [facility] Influenza Virus 2021-05-06 Completed Universit y of Vaccine 00:00:00 [facility] Influenza Virus 2021-05-06 Completed Universit y of Vaccine 00:00:00 [facility] SARS-COV-2 COVID-19 2021-04-11 Completed Unive rsity of PFIZER VACCINE 00:00:00 [facility] SARS-COV-2 COVID-19 2021-04-11 Completed Unive rsity of PFIZER VACCINE 00:00:00 [facility] SARS-COV-2 COVID-19 2021-04-11 Completed Unive rsity of PFIZER VACCINE 00:00:00 [facility] SARS-COV-2 COVID-19 2021-04-11 Completed Unive rsity of PFIZER VACCINE 00:00:00 [facility] SARS-COV-2 COVID-19 2021-04-11 Completed Unive rsity of PFIZER VACCINE 00:00:00 [facility] SARS-COV-2 COVID-19 2021-03-21 Completed Unive rsity of PFIZER VACCINE 00:00:00 [facility] SARS-COV-2 COVID-19 2021-03-21 Completed Unive rsity of PFIZER VACCINE 00:00:00 [facility] SARS-COV-2 COVID-19 2021-03-21 Completed Unive rsity of PFIZER VACCINE 00:00:00 [facility] SARS-COV-2 COVID-19 2021-03-21 Completed Unive rsity of PFIZER VACCINE 00:00:00 [facility] SARS-COV-2 COVID-19 2021-03-21 Completed Unive rsity of PFIZER VACCINE 00:00:00 [facility] Branch Influenza Virus 2019-07-02 Completed Maribeth Schrader ybold - Vaccine, No 00:00:00 External Preserv, age 6 months and up Influenza Virus 2019-07-02 Completed Maribeth Schrader ybold - Vaccine, No 00:00:00 External Preserv, age 6 months and up Influenza Virus 2019-07-02 Completed Universit y of Vaccine Quad .5 mL 00:00:00 [facility] IM 6+ [place] Branch Influenza Virus 2019-07-02 Completed Universit y of Vaccine [place] .5 mL 00:00:00 [facility] IM 6+ [place] Branch Influenza Virus 2019-07-02 Completed Universit y of Vaccine [place] .5 mL 00:00:00 [facility] IM 6+ [place] Branch Influenza Virus 2019-07-02 Completed Universit y of Vaccine [place] .5 mL 00:00:00 [facility] 6+ [place] Branch Influenza Virus 2019-07-02 Completed Universit y of Vaccine [place] .5 mL 00:00:00 [facility] 6+ MO [place] Vital Signs Vital Name Observation Time Observation Value Comments Source Systolic blood 2022-10-24 05:09:00 131 mm[Hg] Univer sity of pressure [facility] Diastolic blood 2022-10-24 05:09:00 85 mm[Hg] Unive rsity of pressure [facility] Heart rate 2022-10-24 05:09:00 114 /min [facility] Body temperature 2022-10-24 05:09:[address] [facility] Respiratory rate 2022-10-24 05:09:00 18 /min [facility] Body height 2022-10-24 05:09:00 177.8 cm [facility] Body weight 2022-10-24 05:09:00 106.595 kg [facility] BMI 2022-10-24 05:09:00 33.72 kg/m2 [facility] Oxygen saturation in 2022-10-24 05:09:00 100 /min [facility] Arterial blood by [facility] Pulse oximetry Branch Systolic blood 2022-10-12 20:23:00 148 mm[Hg] Maribeth Thakkar - pressure External Diastolic blood 2022-10-12 20:23:00 72 mm[Hg] Miguel brennan Seybold - pressure External Heart rate 2022-10-12 20:23:00 76 /min Maribeth bolivarbold - External Body temperature 2022-10-12 20:23:00 36.78 Rafaela Priscila bolivar Seybold - External Respiratory rate 2022-10-12 20:23:00 13 /min Priscila bolivar Seybold - External Body height 2022-10-12 20:23:00 177.8 cm Maribeth bolivarbotod - External Body weight 2022-10-12 20:23:00 111.585 kg Maribeth bolivarbold - External BMI 2022-10-12 20:23:00 35.30 kg/m2 Maribeth bolivarbotod - External Oxygen saturation in 2022-10-12 20:23:00 99 /min Maribeth Thakkar - Arterial blood by External Pulse oximetry Systolic blood 2022-09-28 07:30:00 160 mm[Hg] Univer sity of pressure [facility] Diastolic blood 2022-09-28 07:30:00 89 mm[Hg] Unive rsity of [facility] Heart rate 2022-09-28 07:30:00 108 /min [facility] Respiratory rate 2022-09-28 07:30:00 23 /min [facility] saturation in 2022-09-28 07:30:00 91 /min University Arterial blood by [facility] Pulse oximetry Branch Body temperature 2022-09-28 04:55:00 36.78 Rafaela [facility] Body height 2022-09-28 04:55:00 177.8 cm [facility] Body weight 2022-09-28 04:55:00 108.274 kg [facility] BMI 2022-09-28 04:55:00 34.25 kg/m2 [facility] Systolic blood 2022-05-30 13:08:00 145 mm[Hg] Maribeth Schraderybold - pressure External Diastolic blood 2022-05-30 13:08:00 73 mm[Hg] Miguel brennan Seybold - pressure External Heart rate 2022-05-30 13:08:00 79 /min Maribeth S eybold - External Body temperature 2022-05-30 13:08:00 36.78 Rafaela Priscila bolivar Seybkorin - External Respiratory rate 2022-05-30 13:08:00 14 /min Priscila Thakkar - External Body height 2022-05-30 13:08:00 177.8 cm Maribeth bolivarbotod - External Body weight 2022-05-30 13:08:00 111.131 kg Maribeth Red eybold - External BMI 2022-05-30 13:08:00 35.15 kg/m2 Maribeth bolivarbotod - External Oxygen saturation in 2022-05-30 13:08:00 99 /min Maribeth Thakkar - Arterial blood by External Pulse oximetry Systolic blood 2021-11-16 13:58:00 127 mm[Hg] Univer sity of pressure [facility] Diastolic blood 2021-11-16 13:58:00 71 mm[Hg] Unive rsity of [facility] Heart rate 2021-11-16 13:58:00 107 /min [facility] Body temperature 2021-11-16 13:58:00 36.5 Rafaela [facility] Respiratory rate 2021-11-16 13:58:00 18 /min [facility] Oxygen saturation in 2021-11-16 13:58:00 96 /min [facility] Arterial blood by [facility] Pulse oximetry Branch Body weight 2021-11-16 08:55:00 114.987 kg [facility] BMI 2021-11-16 08:55:00 36.37 kg/m2 [facility] Body height 2021-11-14 20:04:00 177.8 cm [facility] Heart Rate 2020-04-01 05:01:00 75 /min [facility] Respiratory rate 2020-04-01 05:01:00 16 /min [facility] BP Systolic 2020-04-01 05:01:00 102 mm[Hg] [facility] BP Diastolic 2020-04-01 05:01:00 59 mm[Hg] [facility] Heart Rate 2020-04-01 04:21:00 75 /min [facility] Respiratory rate 2020-04-01 04:21:00 16 /min [facility] BP Systolic 2020-04-01 04:21:00 102 mm[Hg] [facility] BP Diastolic 2020-04-01 04:21:00 59 mm[Hg] [facility] Procedures Procedure Date / Time Performing Clinician Source Performed CONSENT/REFUSAL FOR 2022-10-24 04:58:26 [facility] CT ABDOMEN PELVIS WO 2022-09-28 06:15:00 Mega eDshpande [facility] CONTRAST Medical Branch URINALYSIS 2022-09-28 05:54:00 Mega Deshpande [facility] RAPID STREP SCREEN FOR 2022-09-28 05:47:00 Charlee [facility] GROUP A [facility] COVID-19 (ID NOW RAPID 2022-09-28 05:47:00 Charlee [facility] TESTING) Medical Branch CONSENT/REFUSAL FOR 2022-09-28 04:47:37 Doctor [facility]assigned, [facility] AMMONIA, PLASMA 2021-11-16 10:37:00 [facility] 2021-11-15 14:29:02 [facility] 2021-11-15 09:21:00 [facility] HEPATIC FUNCTION PANEL 2021-11-15 09:21:00 [facility] ([id number]) (ALB,T.PRO,BILI [facility] T,BU/BC,ALT,AST,ALK PHOS) BASIC METABOLIC PANEL 2021-11-15 09:21:00 [facility] (NA, K, CL, CO2, [facility] GLUCOSE, BUN, CREATININE, CA) CBC WITH DIFF 2021-11-15 09:21:00 [facility] CBC WITH DIFF 2021-11-14 18:15:00 Radha Solomon [facility] PROTHROMBIN TIME / INR 2021-11-14 18:15:00 Radha [facility] BLOOD CULTURE SCREEN 2021-11-14 18:05:00 [facility] WHO[facility]LO[facility] 2021-11-14 18:04:00 Solomon Garcia [facility] XR CHEST 1 VW 2021-11-14 17:27:38 Solomon Garcia [facility] LIPASE 2021-11-14 17:21:00 Solomon Garcia [facility] TROPONIN I 2021-11-14 17:21:00 Solomon Garcia [facility] HEPATIC FUNCTION PANEL 2021-11-14 17:21:00 Solomon Garcia [facility] ([id number]) (ALB,T.PRO,BILI [facility] T,BU/BC,ALT,AST,ALK PHOS) BASIC METABOLIC PANEL 2021-11-14 17:21:00 Solomon Garcia [facility] (NA, K, CL, CO2, [facility] GLUCOSE, BUN, CREATININE, CA) N-TERMINAL PRO-BNP 2021-11-14 17:21:00 Solomon Garcia [facility] COVID-19 (ID NOW RAPID 2021-11-14 17:21:00 Radha Solomon B [facility] TESTING) [facility] URINALYSIS 2021-11-14 17:20:00 Solomon Garcia [facility] HB ECG ROUTINE & RHYTHM 2021-11-14 17:11:04 Solomon Garcia [facility] CONSENT/REFUSAL FOR 2021-11-14 16:50:47 Doctor Unassigned, No Un [facility] DIAGNOSIS AND TREATMENT Name [facility] Computed tomography of 2020-03-31 00:00:00 [facility] abdomen and pelvis without contrast Plan of Care Planned Activity Planned Date Details Comments Source Goal Patient referral [code = [facility] ISUS - [place] [id number] ] [facility] Instructions Gallstones (DC) LON louis [facility] al Encounters Start End Encounter Admission Attending Care Care Encounter Source Date/Time Date/Time Type Type Clinicians Facility Department ID 2022-10-24 Outpatient STLMLC STLMLC [id number] Common 10:50:00 [id number] [facility] 2022-01-17 [facility] [id number] Common 15:00:01 [facility] 2021-09-[address] [facility] [id number] Common 11:30:08 Jennifer [id number] [facility] 2022-10-26 2022-10-26 Outpatient MARIBETH ZAMUDIO [id number] Maribeth 15:00:00 15:00:00 SARKIS Seybol d 2022-10-23 2022-10-24 [facility] [id number] Univers 23:11:00 02:25[facility] 2022-10-23 2022-10-[address] [facility] [id number] Univers 23:11:00 02:25:00 E[facility] 350.1.13.10 [facility] 4.2.7.2.686 [facility] [id number] [address] 2022-10-23 2022-10-23 Outpatient MARIBETH ZAMUDIO [id number] Maribeth 00:00:00 00:00:00 SARKIS Seybol d 2022-10-17 2022-10-17 Outpatient MARIBETH ZAMUDIO [id number] Maribeth 00:00:00 00:00:00 SARKIS Seybol d 2022-10-12 2022-10-12 Outpatient MARIBETH ZAMUDIO [id number] Maribeth 14:15:00 14:15:00 SARKIS Seybol d 2022-10-11 2022-10-11 Outpatient MARIBETH ZAMUDIO [id number] Maribeth 00:00:00 00:00:00 SARKIS Seybol d 2022-09-27 2022-09-28 Emergency X [facility] ERT [id number] Univers 22:57:00 02:15:00 MEGA [facility] 2022-09-27 2022-09-28 Emergency [facility] [id number] [facility] 22:57:00 02:15:00 Mega COLEMAN 350.1.13.10 [facility] 4.2.7.2.686 [facility] [id number] [facility] 084 Branch 2022-09-15 2022-09-15 Outpatient PREMARIBETH MAYS [id number] Maribeth 00:00:00 00:00:00 SARKIS Seybol d 2022-08-30 2022-08-30 Outpatient PREZAMARIBETH Red [id number] Maribeth 08:00:00 08:00:00 SARKIS Seybol d 2022-07-04 2022-07-04 Outpatient PREZAMARIBETH Red [id number] Maribeth 00:00:00 00:00:00 SARKIS Seybol d 2022-06-15 2022-06-15 Outpatient MARIBETH MALDONADO [id number] Maribeth 00:00:00 00:00:00 CROW Seybol d 2022-06-07 2022-06-07 Outpatient PREZAMARIBETH Red [id number] Maribeth 00:00:00 00:00:00 SARKIS Seybol d 2022-06-06 2022-06-06 Outpatient PREZAMARIBETH Red [id number] Maribeth 00:00:00 00:00:00 SARKIS Seybol d 2022-06-05 2022-06-05 Outpatient PREZASMARIBETH [id number] Maribeth 00:00:00 00:00:00 SARKIS Seybol d 2022-05-30 2022-05-30 Outpatient LAB90 MARIBETH TERRAZAS [id number] Maribeth 08:30:00 08:30:00 Seybol d 2022-05-30 2022-05-30 Outpatient PREZAMARIBETH Red [id number] Maribeth 08:00:00 08:00:00 SARKIS Seybol d 2022-05-12 2022-05-12 Outpatient PREZAMARIBETH Red [id number] Maribeth 00:00:00 00:00:00 SARKIS Seybol d 2022-05-12 2022-05-12 Outpatient PREZAMARIBETH Red [id number] Maribeth 00:00:00 00:00:00 SARKIS Seybol d 2022-05-10 2022-05-10 Outpatient CONGNeda MARIBETH TERRAZAS [id number] Maribeth 00:00:00 00:00:00 SARKIS Seybol d 2022-05-08 2022-05-08 Outpatient SOLO MARIBETH TERRAZAS [id number] Maribeth 00:00:00 00:00:00 SARKIS Seybol d 2022-05-02 2022-05-02 Office Mihir Zamudio [id number] Maribeth 09:00:00 09:15:00 Visit Sarkis Bowens 350.1.13.13 Se ybold 1.2.7.2.686 [id number] 2022-04-27 2022-04-27 Outpatient RODRIGOJOHANNNeda MARIBETH TERRAZAS [id number] Maribeth 00:00:00 00:00:00 SARKIS Seybol d 2022-04-21 2022-04-21 Outpatient MARIBETH MALDONADO [id number] Maribeth 08:00:00 08:00:00 CROW Seybol d 2022-04-07 2022-04-07 Office Mihir Maldonado [id number] Maribeth 09:00:00 09:30:00 Visit Crow Bowens 350.1.13.13 Se ybold Somogyi 1.2.7.2.686 [id number] 2022-04-06 2022-04-06 Outpatient MARIBETH MALDONADO [id number] Maribeth 00:00:00 00:00:00 CROW Seybol d 2022-03-31 2022-03-31 Outpatient LAB90 MARIBETH TERRAZAS [id number] Maribeth 09:20:00 09:20:00 Seybol d 2022-03-31 2022-03-31 Office Mihir Maldonado [id number] Maribeth 08:30:00 09:00:00 Visit Crow Bowens 350.1.13.13 Se ybold Somogyi 1.2.7.2.686 [id number] 0 2022-01-10 2022-01-10 Telephone Matt [facility] [id number] Univers 00:00:00 00:00:00 Mayabreannekenia JARED 350.1.13.10 ity [place] [id number] [address] 2021-11-17 2021-11-17 Transition ED Beck 1.2.840.114 [id number] Univers 00:00:00 00:00:00 of Ernesto LYNCH 350.1.13.10 it y of [place] [id number] [facility] 403 Branch 2021-11-14 2021-11-16 [facility] [id number] Univers 12:06:00 11:15:00 JO ity [facility] 2021-11-14 2021-11-16 [facility] Solomon Garcia [facility] 1.2.840. 114 [id number] Univers 12:06:00 11:15:00 Encounter Radha Mejiapilar COLEMAN 350.1.13.10 it[place] [id number] [place] [id number] [place] 2021-11-14 2021-11-16 Outpatient X JACKIE [facility] [id number] Univers 12:06:00 11:15:00 JO ity [facility] 2021-11-02 2021-11-04 [facility] Ginette Stafford [facility] 1.2.840.1 [id number] Univers 18:50:00 10:45:00 Encounter PadminiElliot crumraudel COLEMAN 350.1.13.10 ity of [place] Rousseau 4.2.7.2.686 [facility] [id number] [place] [id number] [place] 2021-11-02 2021-11-04 [facility] [id number] Univers 18:50:00 10:45:00 CORBIN beasley [facility] 2021-11-02 2021-11-04 Inpatient X DANG, [facility] [id number] Univers 18:50:00 10:45:00 CORBIN ity of [facility] 2021-11-04 2021-11-04 Telephone Deven, [facility] [id number] Univers 00:00:00 00:00:00 Angel COLEMAN 350.1.13.10 it[place] of [place] [id number] Nh dical [facility] 059 Branch [facility] 2021-11-02 2021-11-02 Orders Doctor SUKHI 1.2.840.114 [id number] Univers 00:00:00 00:00:00 Only Unassigned, MARQUES 350.1.13.[address] [facility] 4.2.7.2.686 Paul as [id number] [place] [address] Branch 2021-04-13 2021-04-13 (TEL) STLMLC STLMLC [id number] Co mmon 00:00:00 00:00:00 [facility] 2020-03-31 2020-04-01 Departed [facility] [id number] CHRISTU 23:29:00 04:32:00 Emergency [place] [address] S - Room [facility] 2020-03-31 2020-04-01 Departed LON FORREST [id number] CHRISTU 23:29:00 04:32:00 Emergency 33 S Room [facility] 2020-03-05 2020-03-05 Outpatient Angelica Dominguezt [id number] Common 08:20:00 08:20:00 [facility] it Road [facility] 2019-09-24 2019-09-24 Outpatient [facility] [id number] Common 19:14:00 19:14:00 [facility] it Road [facility] 2019-04-15 2019-04-15 Outpatient [facility] [id number] Common 08:40:00 08:40:00 t [facility] it Road [facility] 2019-03-10 2019-03-10 Outpatient Braz[facility]ie [place] [id number] Common 14:40:00 14:40:00 t [facility] [address] [facility] 2019-02-26 2019-02-26 Outpatient Angelica Romero [id number] Common 09:40:00 09:40:00 t [facility] [address] [facility] 2019-02-24 2019-02-24 Outpatient Angelica Dominguezt [id number] Common 14:16:00 14:16:00 t [facility] [address] [facility] 2018-11-14 2018-11-14 Outpatient Angelica Romero [id number] Common 13:30:00 13:30:00 [facility] [address] [facility] Results Test Description Test Time Test Comments Results Result Comments Source AMMONIA, PLASMA 2021-11-16 11:07:26 Test Item Value Reference Range Interpretation Comme nts AMMONIA (test code = 6897717348) 61 umol/L 9-33 H Lab Interpretation (test code = 76095-2) Abnormal [facility] [id number] 10:20:12 Test Item Value Reference Range Interpretation Comments MAGNESIUM (test code = 9515299832) 1.3 mg/dL 1.7-2.4 L Lab Interpretation (test code = Abnormal 95151-5) [facility] (NA, K, CL, CO2, GLUCOSE, BUN, CREATININE, CA)2021-11-15 10:19:52 Test Item Value Reference Range Interpretation Comments NA (test code = 134 mmol/L 135-145 L 9980819026) K (test code = 3.1 mmol/L 3.5-5.0 L 0374748076) CL (test code = 100 mmol/L 98-108 1927563574) CO2 TOTAL (test code = 27 mmol/L 23-31 9827437421) AGAP (test code = 2-16 9519418003) BUN (test code = 8 mg/dL 7-23 5839491562) GLUCOSE (test code = 114 mg/dL 70-110 H 7491069546) CREATININE (test code = 0.84 mg/dL 0.60-1.25 9482607171) CALCIUM (test code = 7.6 mg/dL 8.6-10.6 L 4848662860) eGFR (test code = mL/min/1.73m2 4837887410) ROBERT (test code = ROBERT) Association of [...] tests). Lab Interpretation Abnormal (test code = 21311-5) [facility] (17737) (ALB,T.PRO,BILI T,BU/BC,ALT,AST,ALK PHOS)2021-11-15 10:19:52 Test Item Value Reference Range Interpretation Comments TOTAL BILI (test code = 9691164153) 5.3 mg/dL 0.1-1.1 H BILI UNCON (test code = 5737158789) 2.0 mg/dL 0.1-1.1 H BILI CONJ (test code = 7785423856) 0.6 mg/dL 0.0-0.3 H T PROTEIN (test code = 8004577962) 7.3 g/dL 6.3-8.2 ALBUMIN (test code = 5289695037) 3.2 g/dL 3.5-5.0 L ALK PHOS (test code = 2778758069) 212 U/L 34-122 H ALTv (test code = 1742-6) 35 U/L 5-50 AST(SGOT) (test code = 1171224730) 122 U/L 13-40 H Lab Interpretation (test code = Abnormal 84670-9) [facility] with [id number] 10:15:10 Test Item Value Reference Range Interpretation [...] (test code = 56.1 fL 38.5-51.6 H 00923-0) RDW-CV (test code = 14.9 % 12.1-15.4 788-0) PLT (test code = See_Comment L [Automated 777-3) message] The sy stem which generated this result transmitted reference range : 150 - 328 10*3/ ?L. The reference r raul was not used to interpret this result as normal/abnormal . MPV (test code = 10.1 fL 9.8-13.0 18287-5) IPF % (test code = 2.2 % 1.2-10.7 Platelet count 7725058309) measured by fluorescence method. NRBC/100 WBC (test See_Comment [Automat ed code = 8384510300) message] The system which generated this result transmitted reference range : 0.0 - 10.0 /100 WBCs. The refer ence range was not u sed to interpret th is result as normal/abnormal . NRBC x10^3 (test code <0.01 See_Comment [Auto mated = 7855819013) message] The s ystem which generated this result transmitted reference range : 10*3/?L. The reference range was not used to interpret this result as normal/abnormal . GRAN MAT (NEUT) % 41.0 % (test code = 770-8) IMM GRAN % (test code 0.20 % = 1311459148) LYMPH % (test code = 37.1 % 736-9) MONO % (test code = 15.7 % 5905-5) EOS % (test code = 5.0 % 713-8) BASO % (test code = 1.0 % 706-2) GRAN MAT x10^3(ANC) 2.03 10*3/uL 1.99-6.95 (test code = 2690296742) IMM GRAN x10^3 (test <0.03 0.00-0.06 code = 7606964221) LYMPH x10^3 (test code 1.84 10*3/uL 1.09-3.23 = 731-0) MONO x10^3 (test code 0.78 10*3/uL 0.36-1.02 = 742-7) EOS x10^3 (test code = 0.25 10*3/uL 0.06-0.53 711-2) BASO x10^3 (test code 0.05 10*3/uL 0.01-0.09 = 704-7) Lab Interpretation Abnormal (test code = 35131-1) [facility] WITH [id number] 19:14:50 Test Item Value Reference Range Interpretation [...] (test code = 55.8 fL 38.5-51.6 H 99446-7) RDW-CV (test code = 14.8 % 12.1-15.4 788-0) PLT (test code = See_Comment L [Automated 777-3) message] The sy stem which generated this result transmitted reference range : 150 - 328 10*3/ ?L. The reference r raul was not used to interpret this result as normal/abnormal . MPV (test code = 10.1 fL 9.8-13.0 09974-8) IPF % (test code = 1.8 % 1.2-10.7 Platelet count 0546081213) measured by fluorescence method. NRBC/100 WBC (test See_Comment [Automat ed code = 5384562310) message] The system which generated this result transmitted reference range : 0.0 - 10.0 /100 WBCs. The refer ence range was not u sed to interpret th is result as normal/abnormal . NRBC x10^3 (test code <0.01 See_Comment [Auto mated = 2298972947) message] The s ystem which generated this result transmitted reference range : 10*3/?L. The reference range was not used to interpret this result as normal/abnormal . GRAN MAT (NEUT) % 47.4 % (test code = 770-8) IMM GRAN % (test code 0.30 % = 5726772240) LYMPH % (test code = 31.8 % 736-9) MONO % (test code = 15.4 % 5905-5) EOS % (test code = 3.6 % 713-8) BASO % (test code = 1.5 % 706-2) GRAN MAT x10^3(ANC) 1.85 10*3/uL 1.99-6.95 L (test code = 9407946439) IMM GRAN x10^3 (test <0.03 0.00-0.06 code = 5757310391) LYMPH x10^3 (test code 1.24 10*3/uL 1.09-3.23 = 731-0) MONO x10^3 (test code 0.60 10*3/uL 0.36-1.02 = 742-7) EOS x10^3 (test code = 0.14 10*3/uL 0.06-0.53 711-2) BASO x10^3 (test code 0.06 10*3/uL 0.01-0.09 = 704-7) PLT ESTIMATE (test Decreased Normal A code = 9317-9) Lab Interpretation Abnormal (test code = 63718-1) [facility] / [id number] 18:59:44 Test Item Value Reference Range Interpretation [...] tions. Lab Interpretation (test Abnormal code = 11952-4) [facility] [id number] 17:57:36 Test Item Value Reference Interpretation Comments Range TROPONIN I (test 0.008 ng/mL See_Comment [Automated code = 8713378947) message] The system which generated this result [...] biotin. Lab Interpretation Normal (test code = 30100-8) [facility]wood[facility]TERMINAL [id number] 17:54:34 Test Item Value Reference Range Interpretation Comments NT-proBNP (test code 183 pg/mL See_Comment H [Autom ated = 6678283074) message] The system which generated this result transmitted reference range : <=125. The reference range was not used to interpret this result as normal/abnormal . ROBERT (test code = ROBERT) Biotin has been reported to cause a negative bias, interpret results relative to patient's use of biotin. Lab Interpretation Abnormal (test code = 58995-1) [facility]wood[facility] FUN[facility] PANEL (93658) (ALB,T.PRO,BILI T,BU/BC,ALT,AST,ALK PHOS)2021-11-14 17:45:53 Test Item Value Reference Range Interpretation Comments TOTAL BILI (test code = 1217835750) 5.8 mg/dL 0.1-1.1 H BILI UNCON (test code = 1996854563) 2.3 mg/dL 0.1-1.1 H BILI CONJ (test code = 4108160013) 0.7 mg/dL 0.0-0.3 H T PROTEIN (test code = 6155674854) 8.1 g/dL 6.3-8.2 ALBUMIN (test code = 0895825232) 3.5 g/dL 3.5-5.0 ALK PHOS (test code = 7098632661) 310 U/L 34-122 H ALTv (test code = 1742-6) 41 U/L 5-50 AST(SGOT) (test code = 5904835132) 145 U/L 13-40 H Lab Interpretation (test code = Abnormal 07680-4) [facility] (NA, K, CL, CO2, GLUCOSE, BUN, CREATININE, CA)2021-11-14 17:45:33 Test Item Value Reference Range Interpretation Comments NA (test code = 139 mmol/L 135-145 2401943337) K (test code = 3.4 mmol/L 3.5-5.0 L 8237676503) CL (test code = 105 mmol/L 98-108 6281983393) CO2 TOTAL (test code = 22 mmol/L 23-31 L 7357170400) AGAP (test code = 2-16 9863262715) BUN (test code = 6 mg/dL 7-23 L 2664504991) GLUCOSE (test code = 99 mg/dL 70-110 1632070345) CREATININE (test code = 0.81 mg/dL 0.60-1.25 1850576521) CALCIUM (test code = 7.8 mg/dL 8.6-10.6 L 5441058556) eGFR (test code = mL/min/1.73m2 7016338262) ROBERT (test code = ROBERT) Association of [...] tests). Lab Interpretation Abnormal (test code = 34731-7) [facility]2022-03-21 17:45:32 Test Item Value Reference Range Interpretation Comments LIPASE (test code = 7244482568) 189 U/L 0-220 Lab Interpretation (test code = Normal 21763-5) [facility] whole blood glucose measurement (mass/volume)2020-04-01 00:15:00 Test Item Value Reference Range Interpretation Comments Bedside Glucose (test code = 99 mg/dL 60-100 75565-1) [facility] blood ionized calcium measurement (moles/volume)2020-04-01 00:15:00 Test Item Value Reference Range Interpretation Comments Bedside Whole Blood Ionized 0.99 mmol/L 1.12-1.32 Calcium (test code = 1994-3) [facility] [id number] 00:15:00 Test Item Value Reference Range Interpretation Comments Bedside Anion Gap (test code = 15756-5) 17 8-[address] [facility] [id number] 00:15:00 Test Item Value Reference Range Interpretation Comments Estimat Glomerular Filtration Rate 37 73-125 (test code = 33598-6) [facility] blood hemoglobin measurement (mass/volume)2020-04-01 00:15:00 Test Item Value Reference Range Interpretation Comments Bedside Hemoglobin (test code = 13.9 g/dL 13.0-17.5 07662-7) [facility] blood hematocrit (volume fraction)2020-04-01 00:15:00 Test Item Value Reference Range Interpretation Comments Bedside Hematocrit (test code = 41.0 % 40.0-53.0 94500-2) [facility] whole blood sodium measurement (moles/volume)2020-04-01 00:15:00 Test Item Value Reference Range Interpretation Comments Bedside Sodium (test code = 136 mmol/L 136-145 58809-6) [facility] whole blood potassium measurement (moles/volume)2020-04-01 00:15:00 Test Item Value Reference Range Interpretation Comments Bedside Potassium (test code = 3.8 mmol/L 3.5-5.1 55690-9) [facility] chloride [facility] (moles/volume)2020-04-01 00:15:00 Test Item Value Reference Range Interpretation Comments Bedside Chloride (test code = 101 mmol/L 100-112 10681-8) [facility] blood total carbon dioxide measurement (moles/volume)2020-04-01 00:15:00 Test Item Value Reference Range Interpretation Comments Bedside Total CO2 (test code = 23.0 mmol/L 24.0-33.0 2026-08) [facility] urea nitrogen (BUN) measurement (mass/volume) 2020-04-01 00:15:00 Test Item Value Reference Range Interpretation Comments Bedside Blood Urea Nitrogen (test 12 mg/dL -20 code = 02120-9) [facility] (mass/volume)2020-04-01 00:15:00 Test Item Value Reference Range Interpretation Comments Bedside Creatinine (test code = 2.1 mg/dL 0.9-1.5 80268-0) [facility] sodium measurement (moles/volume)2020-04-01 00:15:00 Test Item Value Reference Range Interpretation Comments Bedside Sodium (test code = 136 mmol/L 57410-6) Venous whole blood potassium measurement (moles/volume)2020-04-01 00:15:00 Test Item Value Reference Range Interpretation Comments Bedside Potassium (test code = 3.8 mmol/L 38893-3) Venous whole blood chloride measurement (moles/volume)2020-04-01 00:15:00 Test Item Value Reference Range Interpretation Comments Bedside Chloride (test code = 101 mmol/L 00633-6) Venous whole blood total carbon dioxide measurement (moles/volume)2020-04-01 00:15:00 Test Item Value Reference Range Interpretation Comments Bedside Total CO2 (test code = 23.0 mmol/L 2026-08) Venous whole blood urea nitrogen (BUN) measurement (mass/volume)2020-04-01 00:15:00 Test Item Value Reference Range Interpretation Comments Bedside Blood Urea Nitrogen (test 12 mg/dL code = 43326-1) Blood creatinine measurement (mass/volume)2020-04-01 00:15:00 Test Item Value Reference Range Interpretation Comments Bedside Creatinine (test code = 2.1 mg/dL 87552-1) Venous whole blood glucose measurement (mass/volume)2020-04-01 00:15:00 Test Item Value Reference Range Interpretation Comments Bedside Glucose (test code = 99 mg/dL 69556-7) Whole blood ionized calcium measurement (moles/volume)2020-04-01 00:15:00 Test Item Value Reference Range Interpretation Comments Bedside Whole Blood Ionized 0.99 mmol/L Calcium (test code = 1994-3) Blood anion [id number] 00:15:00 Test Item Value Reference Range Interpretation Comments Bedside Anion Gap (test code = 28929-6) 17 GFR estimate [id number] 00:15:00 Test Item Value Reference Range Interpretation Comments Estimat Glomerular Filtration Rate 37 (test code = 41370-2) Venous blood hemoglobin measurement (mass/volume)2020-04-01 00:15:00 Test Item Value Reference Range Interpretation Comments Bedside Hemoglobin (test code = 13.9 g/dL 03164-1) Venous blood hematocrit (volume fraction)2020-04-01 00:15:00 Test Item Value Reference Range Interpretation Comments Bedside Hematocrit (test code = 41.0 % 95087-0) Venous blood lactic acid measurement (moles/volume)2020-04-01 00:10:00 [...] HealthAutomated erythrocyte mean corpuscular hemoglobin concentration measurement (mass/whu3997-43-72 11:50:00 Test Item Value Reference Range Interpretation Comments Mean Corpuscular Hemoglobin Concent 34.7 g/dL 33.0-37.0 (test code = 786-4) [facility] HealthAutomated erythrocyte distribution width [id number] 11:50:00 Test Item Value Reference Range Interpretation Comments Red Cell Distribution Width (test code 12.8 % 10.7-14.5 = 788-0) [facility] HealthAutomated blood platelet count (count/volume)2020-03-31 11:50:00 Test Item Value Reference Range Interpretation Comments Platelet Count (test code = 105 10*3/uL 150-450 777-3) [facility] HealthAutomated blood platelet mean volume hefdghroymy5907-26-56 11:50:00 Test Item Value Reference Range Interpretation Comments Mean Platelet Volume (test code = 10.1 fL 5.7-10.7 86256-0) [facility] comment 11:50:00 Test Item Value Reference Range Interpretation Comments Manual Differential (test code = ----- 8265-1) [facility] HealthManual blood segmented neutrophils/100 jymdwyeuot4485-98-05 11:50:00 Test Item Value Reference Range Interpretation Comments Neutrophils % (Manual) (test code = 61 % 42-75 769-0) [facility] HealthManual blood lymphocytes/100 socupxagxn9898-36-43 11:50:00 Test Item Value Reference Range Interpretation Comments Lymphocytes % (Manual) (test code = 23 % 21-51 737-7) [facility] HealthManual blood monocytes/100 rvjzaakinu0110-95-52 11:50:00 Test Item Value Reference Range Interpretation Comments Monocytes % (Manual) (test code = 14 % 1-9 744-3) [facility] HealthManual blood eosinophil count as percentage of total leukocytes 2020-03-31 11:50:00 Test Item Value Reference Range Interpretation Comments Eosinophils % (Manual) (test code = 2 % 0-7 714-6) [facility] HealthBlood platelet detection by light gcaxwxfxuw4555-53-44 11:50:00 Test Item Value Reference Range Interpretation Comments Platelet Estimate (test code = Decreased 9317-9) [facility] HealthBlood erythrocyte morphology finding rmbdkjgprmypmd7274-84-49 11:50:00 Test Item Value Reference Range Interpretation [...] Interpretation Comments Anion Gap (test code = 72947-9) 18 8-18 [facility] HealthSerum or plasma urea nitrogen measurement (mass/volume)2020-03-31 11:50:00 Test Item Value Reference Range Interpretation Comments Blood Urea Nitrogen (test code = 11 mg/dL 05-17 3094-0) [facility] HealthSerum or plasma creatinine measurement (mass/volume)2020-03-31 11:50:00 Test Item Value Reference Range Interpretation Comments Creatinine (test code = 2160-0) 1.8 mg/dL 0.7-1.3 [facility] HealthGFR estimate [id number] 11:50:00 Test Item Value Reference Range Interpretation Comments Estimat Glomerular Filtration Rate 44 73-125 (test code = 32453-7) [facility] HealthSerum or plasma urea nitrogen/creatinine mass oonsu2425-61-38 11:50:00 Test Item Value Reference Range Interpretation Comments BUN/Creatinine Ratio (test code = 6 3097-3) [facility] HealthSerum or plasma glucose measurement (mass/volume)2020-03-31 11:50:00 Test Item Value Reference Range Interpretation Comments Glucose Level (test code = 2345-7) 98 mg/dL 60-100 [facility] HealthOsmolality of Serum or Plasma by dcfpzvxjpce4865-09-08 11:50:00 Test Item Value Reference Range Interpretation Comments Calculated Osmolality (test code 269 mosm/kg = 17813-8) [facility] HealthSerum or plasma calcium measurement (mass/volume)2020-03-31 11:50:00 Test Item Value Reference Range Interpretation Comments Calcium Level (test code = 11111-9) 7.8 mg/dL 8.4-10.2 [facility] HealthSerum or plasma total bilirubin measurement (mass/volume) 2020-03-31 11:50:00 Test Item Value Reference Range Interpretation Comments Total Bilirubin (test code = 0.8 mg/dL 0.2-1.2 2) [facility] HealthSerum or plasma total combined glucuronidated [...] Range Interpretation Comments Globulin (test code = 46165-4) 3.5 g/dL [facility] HealthSerum or plasma albumin/globulin mass edjbi0508-91-05 11:50:00 Test Item Value Reference Range Interpretation [...] % Automated erythrocyte mean corpuscular volume (MCV) qptikzzmiwz4908-83-89 11:50:00 Test Item Value Reference Range Interpretation Comments Mean Corpuscular Volume (test code = 98.4 fL 787-2) Automated erythrocyte mean corpuscular hemoglobin (mass per erythrocyte) 2020-03-31 11:50:00 Test Item Value Reference Range Interpretation Comments Mean Corpuscular Hemoglobin (test 34.1 pg code = 785-6) Automated erythrocyte mean corpuscular hemoglobin concentration measurement (mass/vjg7980-72-73 11:50:00 Test Item Value Reference Range Interpretation Comments Mean Corpuscular Hemoglobin Concent 34.7 g/dL (test code = 786-4) Automated erythrocyte distribution width szftz7204-78-62 11:50:00 Test Item Value Reference Range Interpretation Comments Red Cell Distribution Width (test code 12.8 % = 788-0) Automated blood platelet count (count/volume)2020-03-31 11:50:00 Test Item Value Reference Range Interpretation Comments Platelet Count (test code = 105 10*3/uL 777-3) Automated blood platelet mean volume uatjlxhhvpj4871-93-10 11:50:00 Test Item Value Reference Range Interpretation Comments Mean Platelet Volume (test code = 10.1 fL 68053-0) Service comment [id number] 11:50:00 Test Item Value Reference Range Interpretation Comments Manual Differential (test code = ----- 8265-1) Manual blood segmented neutrophils/100 oxpddgxzro2425-31-67 11:50:00 Test Item Value Reference Range Interpretation Comments Neutrophils % (Manual) (test code = 61 % 769-0) Manual blood lymphocytes/100 azizhyduhh3256-29-30 11:50:00 Test Item Value Reference Range Interpretation Comments Lymphocytes % (Manual) (test code = 23 % 737-7) Manual blood monocytes/100 qekrnftpxz3137-14-58 11:50:00 Test Item Value Reference Range Interpretation Comments Monocytes % (Manual) (test code = 14 % 744-3) Manual blood eosinophil count as percentage of total zxebhkyfhq4299-75-99 11:50:00 Test Item Value Reference Range Interpretation Comments Eosinophils % (Manual) (test code = 2 % 714-6) Blood platelet detection by light kxtyfytkua7936-66-46 11:50:00 Test Item Value Reference Range Interpretation Comments Platelet Estimate (test code = Decreased 9317-9) Blood erythrocyte morphology finding iiaohlgguwqxfd8863-99-24 11:50:00 Test Item Value Reference Range Interpretation [...] Interpretation Comments Anion Gap (test code = 07916-2) 18 Serum or plasma urea nitrogen measurement (mass/volume)2020-03-31 11:50:00 Test Item Value Reference Range Interpretation Comments Blood Urea Nitrogen (test code = 11 mg/dL 3094-0) Serum or plasma creatinine measurement (mass/volume)2020-03-31 11:50:00 Test Item Value Reference Range Interpretation Comments Creatinine (test code = 2160-0) 1.8 mg/dL GFR estimate [id number] 11:50:00 Test Item Value Reference Range Interpretation Comments Estimat Glomerular Filtration Rate 44 (test code = 01306-2) Serum or plasma urea nitrogen/creatinine mass ltnmn6956-44-46 11:50:00 Test Item Value Reference Range Interpretation Comments BUN/Creatinine Ratio (test code = 6 3097-3) Serum or plasma glucose measurement (mass/volume)2020-03-31 11:50:00 Test Item Value Reference Range Interpretation Comments Glucose Level (test code = 2345-7) 98 mg/dL Osmolality of Serum or Plasma by dyxzgbnewvw8906-16-25 11:50:00 Test Item Value Reference Range Interpretation Comments Calculated Osmolality (test code 269 mosm/kg = 63129-5) Serum or plasma calcium measurement (mass/volume)2020-03-31 11:50:00 Test Item Value Reference Range Interpretation Comments Calcium Level (test code = 17972-1) 7.8 mg/dL Serum or plasma total bilirubin [...] Range Interpretation Comments Globulin (test code = 02245-8) 3.5 g/dL Serum or plasma albumin/globulin mass cztcb6511-19-87 11:50:00 Test Item Value Reference Range Interpretation [...] = 3040-3) 299 U/L Urinalysis specimen collection ldvgga6824-99-67 02:48:00 Test Item Value Reference Range Interpretation Comments Urine Source (test code = 45235-8) URINE [facility] HealthUrine color trttsqzurlfzr5611-43-23 02:48:00 Test Item Value Reference Range Interpretation Comments Urine Color (test code = 5778-6) Yellow Yel-Dyan * [facility] HealthUrine clarity npofplaobactf0297-64-62 02:48:00 Test Item Value Reference Range Interpretation Comments Urine Appearance (test code = 17019-2) Clear Clear * [facility] HealthUrine pH measurement by automated test huupk4237-46-73 02:48:00 Test Item Value Reference Range Interpretation Comments Urine pH (test code = 95242-1) 5.0 5.0-8.0 [facility] HealthSpecific gravity of Urine by Automated test ggrvt1654-51-62 02:48:00 Test Item Value Reference Range Interpretation Comments Urine Specific [place] (test code = 1.020 1.005-1.030 61496-1) [facility] HealthUrine protein measurement by automated test strip (mass/volume) 2020-03-31 02:48:00 Test Item Value Reference Range Interpretation Comments Urine Protein (test code = 55629-0) 100 mg/dL Negative * [facility] HealthUrine glucose measurement by automated test strip (mass/volume) 2020-03-31 02:48:00 Test Item Value Reference Range Interpretation Comments Urine Glucose (UA) (test code Negative mg/dL Negative * = 02269-1) [facility] HealthUrine ketones measurement by automated test strip (mass/volume) 2020-03-31 02:48:00 Test Item Value Reference Range Interpretation Comments Urine Ketones (test code = 10957-5) 15 mg/dL Negative * [facility] HealthUrine erythrocytes count by automated test strip (number/volume) 2020-03-31 02:48:00 Test Item Value Reference Range Interpretation Comments Urine Occult Blood (test Negative {Butch}/uL Negative * code = 12435-3) [facility] HealthUrine nitrite detection by automated test nzjjb6170-17-64 02:48:00 Test Item Value Reference Range Interpretation Comments Urine Nitrite (test code = 16291-5) Negative Negative [facility] HealthUrine total bilirubin measurement by automated test strip (mass/volume)2020-03-31 02:48:00 Test Item Value Reference Range Interpretation Comments Urine Bilirubin (test code = 14468-4) 1 mg/dL Negative [facility] HealthConfirmatory urine bilirubin mqwexceajkl9885-30-67 02:48:00 Test Item Value Reference Range Interpretation Comments Urine Ictotest (test code = 04777-4) Positive Negative [facility] HealthUrine urobilinogen measurement by automated test strip (mass/volume)2020-03-31 02:48:00 Test Item Value Reference Range Interpretation Comments Urine Urobilinogen (test code = 4.0 mg/dL 0.0-1.0 86380-6) [facility] HealthUrine leukocytes count by automated test strip (number/volume) 2020-03-31 02:48:00 Test Item Value Reference Range Interpretation Comments Urine Leukocyte Esterase (test 25 {Zohaib}/uL Negative code = 04413-5) [facility] HealthMicroscopic examination of tfwud6348-97-06 02:48:00 Test Item Value Reference Range Interpretation Comments Microscopic Urinalysis (T) (test code = ----- 79535-8) [facility] HealthUrine sediment erythrocyte count by microscopy (number/high power field)2020-03-31 02:48:00 Test Item Value Reference Range Interpretation Comments Urine RBC (test code = None Seen /[HPF] 0-2 74775-6) [facility] HealthUrine sediment leukocyte count by microscopy [...] code = None Seen /[HPF] None * 77161-9) [facility] HealthAmorphous sediment detection in urine sediment by light vlshcjphke3030-63-93 02:48:00 Test Item Value Reference Range Interpretation [...] (test 6-10 /[LPF] None * code = 14819-0) [facility] HealthYeast detection in urine sediment by light dwboegehdm8488-01-58 02:48:00 Test Item Value Reference Range Interpretation Comments Urine Yeast (test code = None Seen /[HPF] None 50286-7) [facility] comment 02:48:00 Test Item Value [...] Not Ind 8264-4) [facility] HealthUrinalysis specimen collection rpjsqx8034-89-08 02:48:00 Test Item Value Reference Range Interpretation Comments Urine Source (test code = 25995-3) URINE Urine color llgrwgbqqtium6184-87-03 02:48:00 Test Item Value Reference Range Interpretation Comments Urine Color (test code = 5778-6) Yellow Urine clarity ebyyouokzyapo2453-71-59 02:48:00 Test Item Value Reference Range Interpretation Comments Urine Appearance (test code = 10162-3) Clear Urine pH measurement by automated test xcegd7461-76-18 02:48:00 Test Item Value Reference Range Interpretation Comments Urine pH (test code = 73242-4) 5.0 Specific gravity of Urine by Automated test urpbn2259-60-91 02:48:00 Test Item Value Reference Range Interpretation Comments Urine Specific [place] (test code = 1.020 28161-1) Urine protein measurement by automated test strip (mass/volume)2020-03-31 02:48:00 Test Item Value Reference Range Interpretation Comments Urine Protein (test code = 82081-1) 100 mg/dL Urine glucose measurement by automated test strip (mass/volume)2020-03-31 02:48:00 Test Item Value Reference Range Interpretation Comments Urine Glucose (UA) (test code Negative mg/dL = 61889-9) Urine ketones measurement by automated test strip (mass/volume)2020-03-31 02:48:00 Test Item Value Reference Range Interpretation Comments Urine Ketones (test code = 16491-9) 15 mg/dL Urine erythrocytes count by automated test strip (number/volume)2020-03-31 02:48:00 Test Item Value Reference Range Interpretation Comments Urine Occult Blood (test Negative {Butch}/uL code = 82733-0) Urine nitrite detection by automated test qzuiq4851-09-22 02:48:00 Test Item Value Reference Range Interpretation Comments Urine Nitrite (test code = 02185-4) Negative Urine total bilirubin measurement by automated test strip (mass/volume) 2020-03-31 02:48:00 Test Item Value Reference Range Interpretation Comments Urine Bilirubin (test code = 82694-7) 1 mg/dL Confirmatory urine bilirubin vmjrhgofqjz6236-57-10 02:48:00 Test Item Value Reference Range Interpretation Comments Urine Ictotest (test code = 83237-8) Positive Urine urobilinogen measurement by automated test strip (mass/volume)2020-03-31 02:48:00 Test Item Value Reference Range Interpretation Comments Urine Urobilinogen (test code = 4.0 mg/dL 85655-6) Urine leukocytes count by automated test strip (number/volume)2020-03-31 02:48:00 Test Item Value Reference Range Interpretation Comments Urine Leukocyte Esterase (test 25 {Zohaib}/uL code = 61077-4) Microscopic examination of jufnt6014-39-91 02:48:00 Test Item Value Reference Range Interpretation Comments Microscopic Urinalysis (T) (test code = ----- 75364-8) Urine sediment erythrocyte count by microscopy (number/high power field) 2020-03-31 02:48:00 Test Item Value Reference Range Interpretation Comments Urine RBC (test code = None Seen /[HPF] 13986-2) Urine sediment leukocyte count by microscopy (number/high [...] Crystals (test code = None Seen /[HPF] 57800-1) Amorphous sediment detection in urine sediment by light khmtiszalu4066-02-91 02:48:00 Test Item Value Reference Range Interpretation [...] Granular Casts (test 6-10 /[LPF] code = 55641-1) Yeast detection in urine sediment by light jasllgefaa1487-68-87 02:48:00 Test Item Value Reference Range Interpretation Comments Urine Yeast (test code = None Seen /[HPF] 95534-2) Service comment 02:48:00 Test Item Value Reference Range Interpretation Comments Urinalysis Comment (test code = 8262-8) * Service comment 02:48:00 Test Item Value Reference Range Interpretation Comments Urine Culture Indicated (test code = Not Ind 8264-4)"
[2022-10-24] MEDS ORDERED: FOLIC ACID 5 MG/ML VIAL ONE (16:54)
[2022-10-24] MEDS ORDERED: THIAMINE 200 MG/2 ML INJ ONE (16:54)
[2022-10-24] MEDS ORDERED: NA CHLORIDE 0.9% 1,000 ML ONE ×2 (16:55→18:40)
[2022-10-24] MEDS ORDERED: MULTIVITAMINS 10 ML VIAL (INJ) IV ONE (16:58)
[2022-10-24 17:11] LABS: Absolute Lymphocytes (CBC) 0.5 K/uL (0.7-4.9); Hematocrit 34.8 % (39.6-49.0); Lymphocytes % 6.8 % (15.3-44.8); MCV 98.3 fL (80-100); MPV 8.3 fL (7.6-11.3); RBC Red Blood Cell Count 3.54 M/uL (4.33-5.43)
--- NOTE | 2022-10-24 17:13 | RAD REPORT ---
EXAM DESCRIPTION: RAD - Chest Single View - 10/24/2022 5:00 pm CLINICAL HISTORY: SWELLING COMPARISON: None FINDINGS: Lines: None. Lungs: No evidence of edema or pneumonia. Pleural: No significant pleural effusions or pneumothorax. Cardiac: The heart size is within normal limits. Mediastinum: Within normal limits. Bones: No acute fractures. Other: None IMPRESSION: No acute cardiopulmonary disease.
[2022-10-24 17:14] LABS: Protime INR 2.12
[2022-10-24 17:35] LABS: ALT/SGPT 48 U/L (16-61); AST/SGOT 181 U/L (15-37); Albumin 2.6 g/dL (3.4-5.0); Alkaline Phosphatase 183 U/L (45-117); BUN Blood Urea Nitrogen 34 mg/dL (7-18); Bicarbonate 16 mmol/L (21-32); Bilirubin Direct 4.8 mg/dL (0-0.2); Glomerular Filtration Rate 43 ml/min (=/>90); Glucose Level 105 mg/dL (74-106); Potassium 3.4 mmol/L (3.5-5.1); Protein, Total 7.6 g/dL (6.4-8.2); Sodium Level 133 mmol/L (136-145)
[2022-10-24 17:36] LABS: Bilirubin Total 5.6 mg/dL (0.2-1.0)
[2022-10-24] MEDS ORDERED: NA CHLORIDE 0.9% 250 ML ONE (18:12)
[2022-10-24] MEDS ORDERED: LEVETIRACETAM 500 MG/5 ML VIAL IV ONE (18:12)
--- NOTE | 2022-10-24 18:35 | EDPHYS ---
Physician Documentation [facility] Name: Sung Brown Jr Age: 47 yrs Sex: Male : 1975 Arrival Date: 10/24/2022 Time: 16:33 Bed 17 Private MD: ED Physician Anthony Andersen HPI: 10/24 16:45 This 47 yrs old Male presents to ER via EMS with complaints of ETOH Abuse, Seizure. cp 16:45 The patient presents with a history of multiple seizures, a total of 3, the episode(s) cp was witnessed, by EMS personnel, by family. Character of seizure(s): Loss of consciousness: the patient experienced loss of consciousness, Motor activity: generalized, Incontinence: incontinent of bladder. Seizure onset: today. Context: occurred at home, hospital. 16:45 EMS care: IV fluids. cp 16:45 Current symptoms: confusion. Onset: The symptoms/episode began/occurred today. cp Associated signs and symptoms: Pertinent negatives: fever. 18:40 Girlfriend reports patient was prescribed Tramadol for pain to right ankle and took cp dose last night. Historical: - Allergies: 16:43 Lisinopril; ko1 - Home Meds: 16:43 Albuterol Inhl [Active]; folic acid 1 mg Oral tab 1 tab once daily [Active]; fluoxetine ko1 20 mg Oral cap 1 cap once daily [Active]; budesonide-formoterol 160-4.5 mcg/actuation inhalation HFAA 2 puffs 2 times per day [Active]; lorazepam 1 mg Oral tab once daily [Active]; furosemide 40 mg Oral tab 1 tab once daily [Active]; pantoprazole 20 mg Oral TbEC [Active]; Nystatin Oral [Active]; spironolactone 25 mg Oral tab 1 tab once daily [Active]; thiamine HCl (vitamin B1) 100 mg Oral tab [Active]; esomeprazole magnesium 40 mg Oral grps 1 packet 2 times per day [Active]; tramadol 50 mg Oral tab [Active]; Proctofoam HC Rectal [Active]; - PMHx: 16:43 ADD/ADHD; chronic idiopathic thrombocytopenia; cirrhosis of liver; Hepatitis; C; ko1 Hypertension; COPD; WPW; - Immunization history:: Adult Immunizations unknown. - Social history:: Smoking status: unknown. ROS: 16:50 Constitutional: Negative for body aches, chills, fever, poor PO intake. cp 16:50 Neuro: Positive for altered mental status, seizure activity. cp 16:50 Unable to obtain ROS due to altered mental status. cp Exam: 16:45 ECG was reviewed by the Attending Physician. cp 16:50 Constitutional: The patient appears awake, non-diaphoretic, non-toxic, well developed, cp well nourished, obese. 16:50 Head/Face: Normocephalic, atraumatic. cp 16:50 Eyes: Periorbital structures: appear normal, Pupils: equal, round, and reactive to light and accomodation. 16:50 ENT: External ear(s): are unremarkable, Ear canal(s): are normal, clear, TM's: dullness, bilaterally, Nose: is normal, Mouth: Lips: moist, Oral mucosa: moist, Posterior pharynx: Airway: no evidence of obstruction, patent. 16:50 Neck: ROM/movement: is normal, is supple, no range of motions limitations, no meningismus, no nuchal rigidity. 16:50 Chest/axilla: Inspection: normal, Palpation: is normal, no crepitus, no tenderness. 16:50 Cardiovascular: Rate: tachycardic, Rhythm: regular, Edema: ankle edema, that is moderate, JVD: is not appreciated. 16:50 Respiratory: the patient does not display signs of respiratory distress, Respirations: normal, no use of accessory muscles, no retractions, Breath sounds: are clear throughout, no decreased breath sounds, no stridor, no wheezing. 16:50 Abdomen/GI: Inspection: abdomen appears normal, Palpation: abdomen is soft and non-tender, in all quadrants. 16:50 Musculoskeletal/extremity: Extremities: noted in the right ankle: chronic deformity. 16:50 Neuro: Mentation: confused, Motor: moves all fours. Vital Signs: 16:40 BP 156 / 60; Pulse 124; Resp 22; Temp 99.9; Pulse Ox 99% ; ko1 16:41 BP 183 / 83; Pulse 125; Resp 18; Temp 98(O); Pulse Ox 100% ; ko1 17:15 BP 175 / 105; Pulse 123; Resp 22; Pulse Ox 96% ; ko1 17:30 BP 170 / 91; Pulse 121; Resp 18; Pulse Ox 95% ; ko1 17:45 BP 176 / 86; Pulse 123; Resp 22; Pulse Ox 98% ; ko1 19:07 BP 167 / 91; Pulse 118; Resp 21; Pulse Ox 97% on R/A; jj7 MDM: 16:50 Patient medically screened. 18:45 Data reviewed: vital signs, nurses notes, lab test result(s), EKG, radiologic studies, cp CT scan, plain films. 18:45 Differential diagnosis: cerebral vascular accident, drug overdose, cardiac arrhythmia, cp seizure. Consideration of Admission/Observation Patient was admitted/placed on observation. Management of patient was discussed with the following: Hospitalist: Anton Hunter NP will accept patient after discussion. I considered the following discharge prescriptions or medication management in the emergency department Medications were administered in the Emergency Department. See MAR. Historians other than the Patient: EMS: provides initial HPI. Spouse/Significant Other: girlfriend provides HPI. Care significantly affected by the following chronic conditions: Liver Disease. 10/24 16:42 Order name: Acetaminophen; Complete Time: 17:37 cp 10/24 16:42 Order name: Basic Metabolic Panel; Complete Time: 17:37 cp 10/24 17:38 Interpretation: Normal except: NA 133; K 3.4; CO2 16; ANION GAP 17.4; BUN 34; CRE 1.93; cp GFR 43; CA 7.7. 10/24 16:42 Order name: CBC with Diff; Complete Time: 17:37 cp 10/24 17:44 Interpretation: Normal except: RBC 3.54; HGB 11.6; HCT 34.8; PLT 43; RDW 19.6; LYM% cp 6.8; MN% 22.0; LYMA 0.5; MNA 1.6. 10/24 16:42 Order name: ETOH Level; Complete Time: 17:37 cp 10/24 17:39 Interpretation: Abnormal: ETOH 238. cp 10/24 16:42 Order name: Hepatic Function; Complete Time: 17:37 cp 10/24 18:17 Interpretation: Normal except: AST 181; ALK 183; BILIT 5.6; BILID 4.8; ALB 2.6; GLOB cp 5.0; A/G 0.5. 10/24 16:42 Order name: PT-INR; Complete Time: 17:37 cp 10/24 16:42 Order name: Ptt, Activated; Complete Time: 17:37 cp 10/24 16:42 Order name: Salicylate; Complete Time: 17:39 cp 10/24 16:42 Order name: Urine Drug Screen; Complete Time: 22:45 cp 10/24 16:42 Order name: EKG; Complete Time: 16:44 cp 10/24 16:42 Order name: EKG - Nurse/Tech; Complete Time: 16:52 cp 10/24 16:42 Order name: IV Saline Lock; Complete Time: 16:52 cp 10/24 16:42 Order name: Labs collected and sent; Complete Time: 16:52 cp 10/24 16:42 Order name: Suicide Screening ([place]); Complete Time: 18:14 10/24 16:42 Order name: Urine Dipstick-Ancillary (obtain specimen) 10/24 16:42 Order name: CT Head Brain wo Cont; Complete Time: 18:44 cp 10/24 18:44 Interpretation: Report reviewed. 10/24 16:42 Order name: XRAY Chest (1 view); Complete Time: 17:37 cp 10/24 17:42 Order name: Lactate w/ 2H reflex if indic.; Complete Time: 22:45 rn 10/24 17:42 Order name: Blood Culture Adult (2) rn 10/24 18:21 Order name: AMMONIA; Complete Time: 22:45 10/24 18:25 Order name: CPK; Complete Time: 19:35 la1 10/24 18:56 Order name: Chest Abdomen Pelvis Wo Con CT la1 10/24 22:04 Order name: CT; Complete Time: 22:45 EDMS 10/25 00:52 Order name: Lactate Sepsis 2 HR Follow-up; Complete Time: 01:53 EDMS 10/25 01:53 Interpretation: LACTATE SEPSIS 5.3; Reviewed. cp 10/25 02:44 Order name: Protime (+INR) EDMS 10/25 02:51 Order name: CBC with Automated Diff EDMS 10/25 03:07 Order name: Comprehensive Metabolic Panel EDMS 10/25 03:07 Order name: Phosphorus EDMS 10/25 03:07 Order name: Creatine Phosphokinase EDMS 10/25 03:07 Order name: Magnesium EDMS 10/25 03:43 Order name: Manual Differential EDMS 10/25 07:16 Order name: Gram Stain--Aerobic Bottle EDKY 10/25 07:17 Order name: Gram Stain--Aerobic Bottle EDKY 10/25 07:45 Order name: SARS-COV-2 Antigen Rapid 10/25 08:38 Order name: [facility] 10/25 10:23 Order name: SARS-COV-2 Antigen Rapid EDKY 10/25 12:21 Order name: [facility] 10/25 18:29 Order name: Glucose, Ancillary Testing EDMS EC:45 Rate is 121 beats/min. Rhythm is regular. LA interval is normal. QRS interval is cp prolonged at 102 msec. QT interval is normal. Interpreted by me. Reviewed by me. Administered Medications: 16:41 Drug: Ativan (LORazepam) 2 mg Route: IVP; Site: left wrist; ko1 16:58 Drug: Banana Bag - (NS 0.9% 1000 ml, foLIC Acid 1 mg, Thiamine 100 mg, Multivitamin 1 ko1 amp) Route: IV; Rate: 250 ml/hr; Site: left wrist; 17:15 Drug: Ativan (LORazepam) 2 mg Route: IVP; Site: left wrist; ko1 18:29 Drug: Keppra (levETIRAcetam) 1000 mg Route: IV; Rate: calculated rate; Site: left wrist;ko1 18:41 Drug: SOLU-Medrol (methylPrednisoLONE) 60 mg Route: IVP; Site: left wrist; ko1 18:47 Drug: Potassium Chloride 10 mEq Route: IV; Rate: calculated rate; Site: left wrist; ko1 23:15 Drug: Ativan (LORazepam) 2 mg Route: IVP; Site: left wrist; jj7 10/25 09:16 Not Given (previous shiftt): Zofran (Ondansetron) 4 mg IVP once; over 2 minutes ap3 09:16 Not Given (previous shiftt): Promethazine 25 mg IVP once ap3 Disposition: 10/26 10:30 Co-signature as Attending Physician, Anthony Andersen MD I reviewed the patient's care rn provided by the Advanced Practice Provider and agree with the diagnosis and treatment plan. Disposition Summary: 10/24/22 18:34 Hospitalization Ordered Hospitalization Status: Inpatient Admission cp Provider: King Andersen cp Condition: Serious cp Problem: new cp Symptoms: have improved cp Bed/Room Type: Standard cp Location: Intensive Care Unit(10/25/22 16:56) ja1 Room Assignment: 5-(10/25/22 16:56) ja Diagnosis - Other seizures cp - Other injury of unspecified kidney, initial encounter cp - Alcoholic cirrhosis of liver cp - Acidosis cp Forms: - Medication Reconciliation Form cp - SBAR form cp Signatures: Dispatcher [employer] EDMS Anthony Andersen MD MD rn Attema, Lee, OFFICE AGENT-C OFFICE AGENT-Cla1 Ganesh Capone PA PA cp Joan Hogan, RN RN cg Neeraj Chen RN RN ja1 Becky Crystal RN RN ko1 Suzette Mathews RN RN jj7 Rufina Ortiz RN ap3 Corrections: (The following items were deleted from the chart) 10/24 20:54 18:34 Intensive Care Unit cp cg 20:54 18:34 cp cg 10/25 16:56 10/24 20:54 [facility] ER HOLD cg ja 10/25 16:56 10/24 20:54 ERHOLD- cg ja
--- NOTE | 2022-10-24 18:35 | ER ---
Nurse's Notes [facility] Name: Sung Brown Jr Age: 47 yrs Sex: Male : 1975 Arrival Date: 10/24/2022 Time: 16:33 Bed 17 Private MD: Diagnosis: Other seizures;Other injury of unspecified kidney, initial encounter;Alcoholic cirrhosis of liver;Acidosis Presentation: 10/24 16:41 Chief complaint: EMS states: patient recently quit drinking and is having seizures. ko1 Coronavirus screen: At this time, the client does not indicate any symptoms associated with coronavirus-19. Ebola Screen: No symptoms or risks identified at this time. Initial Sepsis Screen: Does the patient meet any 2 criteria? No. Patient's initial sepsis screen is negative. Does the patient have a suspected source of infection? No. Patient's initial sepsis screen is negative. Risk Assessment: Do you want to hurt yourself or someone else? Patient reports no desire to harm self or others. Onset of symptoms was October 24, 2022. 16:41 Method Of Arrival: EMS: [facility] ko1 16:41 Acuity: CINTIA 2 ko1 Triage Assessment: 16:43 General: Appears distressed, Behavior is began seizing shortly after arrival. Pain: ko1 Unable to use pain scale. Patient is unresponsive. Historical: - Allergies: 16:43 Lisinopril; ko1 - Home Meds: 16:43 Albuterol Inhl [Active]; folic acid 1 mg Oral tab 1 tab once daily [Active]; fluoxetine ko1 20 mg Oral cap 1 cap once daily [Active]; budesonide-formoterol 160-4.5 mcg/actuation inhalation HFAA 2 puffs 2 times per day [Active]; lorazepam 1 mg Oral tab once daily [Active]; furosemide 40 mg Oral tab 1 tab once daily [Active]; pantoprazole 20 mg Oral TbEC [Active]; Nystatin Oral [Active]; spironolactone 25 mg Oral tab 1 tab once daily [Active]; thiamine HCl (vitamin B1) 100 mg Oral tab [Active]; esomeprazole magnesium 40 mg Oral grps 1 packet 2 times per day [Active]; tramadol 50 mg Oral tab [Active]; Proctofoam HC Rectal [Active]; - PMHx: 16:43 ADD/ADHD; chronic idiopathic thrombocytopenia; cirrhosis of liver; Hepatitis; C; ko1 Hypertension; COPD; WPW; - Immunization history:: Adult Immunizations unknown. - Social history:: Smoking status: unknown. Screenin:45 [facility] ED Fall Risk Assessment (Adult) History of falling in the last 3 months, ko1 including since admission Yes- single mechanical fall (1 pt) Confusion or Disorientation Yes (5 pts) Intoxicated or Sedated Yes (3 pts) Impaired Gait Yes (1 pt) Mobility Assist Device Used Yes (1 pt) Altered Elimination Yes (1 pt) Score/Fall Risk Level 3 or more points = High Risk Oriented to surroundings, Maintained a safe environment, Educated pt \T\ family on fall prevention, incl call for assistance when getting out of bed, Assessed \T\ reinforced patient's understanding of fall precautions, Provided non-skid footwear, Hourly rounding (assess needs \T\ fall precautionary measures) done, Used ambulatory aids as needed (educated on \T\ assisted with), Used gait belt as appropriate Implemented a Fall Risk Plan of Care, Apply high fall risk patient identification: yellow non skid footwear/ fall signage, Remained w/in arm's length of patient and in sight while toileting, Offered frequent toileting (1:1 observation), Remained with patient while ambulating, Utilized family, sitter, or virtual assistant secretary as indicated. Abuse screen: Denies threats or abuse. Denies injuries from another. Nutritional screening: No deficits noted. Tuberculosis screening: No symptoms or risk factors identified. Assessment: 17:00 General:. Neuro: Seizure activity noted at this time. reported prior to arrival. ko1 Seizure lasted approximately 2 minutes. Cardiovascular: Rhythm is sinus tachycardia. Respiratory: Respiratory pattern is tachypnea. GI: No deficits noted. : No deficits noted. EENT: No deficits noted. Derm: No deficits noted. Musculoskeletal: right ankle from previous surgery. 19:07 Reassessment: ASSUMED CARE OF PT. PT SLEEPING. IV FLUIDS STILL INFUSING. VS STABLE. jj7 SIDE RAILS UP WITH PADS FOR SZ PRECAUTIONS. NO DISTRESS NOTED AT THIS TIME. 19:47 Reassessment: IN HAND OVER REPORT DAY SHIFT NURSE ILEANA CELIS INFORMED ME THEY WERE jj7 UNABLE TO DRAW BLOOD CULTURES AND LAB WAS CALLED TO DRAW THE LABS. LAB CALLED AGAIN TO COME DRAW LABS. OUTSIDE LAB STATES THEY WILL INFORM THE TECH AGAIN. 10/25 11:30 General: Spoke with Clary at [facility] Transfer [facility] to initiate transfer. No ICU beds kb3 available at [facility]. Face sheet faxed. 11:51 Neuro: Blanco Agitation-Sedation Scale (RASS):. ph Vital Signs: 10/24 16:40 BP 156 / 60; Pulse 124; Resp 22; Temp 99.9; Pulse Ox 99% ; ko1 16:41 BP 183 / 83; Pulse 125; Resp 18; Temp 98(O); Pulse Ox 100% ; ko1 17:15 BP 175 / 105; Pulse 123; Resp 22; Pulse Ox 96% ; ko1 17:30 BP 170 / 91; Pulse 121; Resp 18; Pulse Ox 95% ; ko1 17:45 BP 176 / 86; Pulse 123; Resp 22; Pulse Ox 98% ; ko1 19:07 BP 167 / 91; Pulse 118; Resp 21; Pulse Ox 97% on R/A; jj7 ED Course: 16:33 Patient arrived in ED. bd 16:34 Ganesh Capone PA is PHCP. cp 16:34 Anthony Andersen MD is Attending Physician. cp 16:40 Becky Crystal, VIMAL is Primary Nurse. ko1 16:43 Triage completed. ko1 16:43 Arm band placed on right wrist. ko1 16:45 Maintain EMS IV. Dressing intact. Good blood return noted. Site clean \T\ dry. Gauge \T\ ko 1 site: 20 left wrist. 16:45 Oxygen administration via non-rebreather mask \T\ 15L/min. ko1 16:52 Acetaminophen Sent. ko1 16:52 Basic Metabolic Panel Sent. ko1 16:52 CBC with Diff Sent. ko1 16:52 ETOH Level Sent. ko1 16:52 Hepatic Function Sent. ko1 16:52 PT-INR Sent. ko1 16:52 Ptt, Activated Sent. ko1 16:52 Salicylate Sent. ko1 17:02 XRAY Chest (1 view) In Process Unspecified. EDMS 17:45 Patient has correct armband on for positive identification. Fall risk band placed. Bed ko1 in low position. Call light in reach. Side rails up X2. Adult w/ patient. Seizure precautions initiated. Client placed on continuous cardiac and pulse oximetry monitoring. NIBP monitoring applied. traffic monitor specialist on. Warm blanket given. 18:25 CT Head Brain wo Cont In Process Unspecified. EDMS 18:32 Anthony Andersen MD is Hospitalizing Provider. cp 18:33 King Andersen MD is Hospitalizing Provider. cp 18:47 CPK Sent. ko1 10/25 18:35 No provider procedures requiring assistance completed. Patient admitted, IV remains in ap3 place. Administered Medications: 10/24 16:41 Drug: Ativan (LORazepam) 2 mg Route: IVP; Site: left wrist; ko1 16:58 Drug: Banana Bag - (NS 0.9% 1000 ml, foLIC Acid 1 mg, Thiamine 100 mg, Multivitamin 1 ko1 amp) Route: IV; Rate: 250 ml/hr; Site: left wrist; 17:15 Drug: Ativan (LORazepam) 2 mg Route: IVP; Site: left wrist; ko1 18:29 Drug: Keppra (levETIRAcetam) 1000 mg Route: IV; Rate: calculated rate; Site: left wrist;ko1 18:41 Drug: SOLU-Medrol (methylPrednisoLONE) 60 mg Route: IVP; Site: left wrist; ko1 18:47 Drug: Potassium Chloride 10 mEq Route: IV; Rate: calculated rate; Site: left wrist; ko1 23:15 Drug: Ativan (LORazepam) 2 mg Route: IVP; Site: left wrist; jj7 10/25 09:16 Not Given (previous shiftt): Zofran (Ondansetron) 4 mg IVP once; over 2 minutes ap3 09:16 Not Given (previous shiftt): Promethazine 25 mg IVP once ap3 Medication: 18:42 VIS not applicable for this client. ap3 Outcome: 10/24 18:34 Decision to Hospitalize by Provider. cp 10/25 18:42 Admitted to ICU accompanied by nurse, accompanied by tech, via stretcher, on monitor, ap3 with chart. 19:04 Patient left the ED. supa Signatures: Dispatcher [employer] EDMS Joelle Cyr Corey, MD MD cha Hall, Patricia RN RN Ganesh Haynes, ELEANOR PA cp Rufina Ortiz RN RN ap3 Roxana Berry RN RN kb3 Becky Crystal RN RN ko1 Suzette Mathews, RN RN jj7
--- NOTE | 2022-10-24 18:36 | RAD REPORT ---
EXAM DESCRIPTION: CT - Head Brain Wo Cont - 10/24/2022 6:23 pm CLINICAL HISTORY: SEIZURE COMPARISON: No comparisons TECHNIQUE: All CT scans are performed using dose optimization technique as appropriate and may inclu de automated exposure control or mA/KV adjustment according to patient size. FINDINGS: No intracranial hemorrhage, hydrocephalus or extra-axial fluid collection.No areas of brai n edema or evidence of midline shift. Prior right orbital floor repair. Bilateral maxillary sinus mucous retention cyst. The calvarium is intact. IMPRESSION: No acute intracranial abnormality.
[2022-10-24] MEDS ORDERED: METHYLPREDNISOLONE 40 MG INJ ONE (18:40)
[2022-10-24] MEDS ORDERED: POTASSIUM CL IV ONE (19:00)
[2022-10-24] MEDS ORDERED: NA CHLORIDE 0.9% IV ONE (19:00)
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
[2022-10-24] MEDS ORDERED: ONDANSETRON 4 MG/2 ML VIAL IV PRN (20:29)
[2022-10-24] MEDS: LORazepam 2 MG/ML VIAL IV SCH ×2 (20:29→21:00)
[2022-10-24] MEDS: NA CHLORIDE 0.9% 1,000 ML IV SCH (20:29)
[2022-10-24] MEDS ORDERED: ONDANSETRON 4 MG/2 ML VIAL ONE (20:31)
--- NOTE | 2022-10-24 22:03 | RAD REPORT ---
EXAM DESCRIPTION: CTChest Abd Pelvis Wo Con - 10/24/2022 9:43 pm CLINICAL HISTORY: Multiple falls, multiple seizures, coagulopathy/etoh COMPARISON: CTANGIO CHEST FOR PE dated 07/19/2015; Angio Aorta For Dissection dated 01/29/2021 TECHNIQUE: CT of the chest, abdomen, and pelvis was performed. All CT scans are performed using dose optimization technique as appropriate and may include automated exposure control or mA/KV adjustment according to patient size. FINDINGS: Thorax: Chest Wall: No abnormal mass gynecomastia. Lungs: No acute abnormality. Pleura: No effusions or pneumothorax. Lucia/Mediastinum: No lymphadenopathy. Aorta/Pulmonary Arteries: Unremarkable Heart: Normal size. Abdomen/Pelvis: Limited by motion. Liver: Cirrhotic liver morphology. Biliary: No biliary ductal dilatation. Cholecystectomy. Stomach: No significant focal abnormality. Duodenum: No significant focal abnormality. Pancreas: No significant abnormality. Spleen: Splenomegaly. Adrenal: No suspicious lesions. Kidney/ureter: No hydronephrosis. No renal calculi. Retroperitoneum: No retroperitoneal adenopathy. Vascular: No aneurysm. Bowel: Colonic wall thickening at the ascending, transverse, and descending colon.. Peritoneum: No ascites or free air. Small volume ascites. Bladder: Grossly unremarkable. Reproductive: No adnexal masses. Bones: No acute fracture. Superior endplate deformity at T12. Other: n/a IMPRESSION: 1. Limited by motion. 2. No evidence of significant trauma to the chest, abdomen, or pelvis. 3. Cirrhosis.
[2022-10-24 22:43] LABS: Barbiturates NEGATIVE (NEGATIVE); Benzodiazepines NEGATIVE (NEGATIVE); Cocaine NEGATIVE (NEGATIVE); METHAMPHETAM NEGATIVE (NEGATIVE); Methadone NEGATIVE (NEGATIVE); Opiates NEGATIVE (NEGATIVE); Phencyclidine NEGATIVE (NEGATIVE); THC Cannibis POSITIVE (NEGATIVE)
[2022-10-25] MEDS: LORazepam 2 MG/ML VIAL IV PRN ×3 (00:27→23:45)
[2022-10-25] MEDS ORDERED: LORazepam 2 MG/ML VIAL ONE ×7 (00:28→14:43)
[2022-10-25] MEDS ORDERED: LORazepam 2 MG/ML VIAL IV ONE ×3 (01:00→02:23)
[2022-10-25] MEDS: LORazepam 2 MG/ML VIAL IV SCH ×8 (01:00→23:45)
[2022-10-25] MEDS ORDERED: NA CHLORIDE 0.9% 1,000 ML ONE ×3 (02:28→17:37)
[2022-10-25 02:48] LABS: Absolute Lymphocytes (CBC) 0.2 K/uL (0.7-4.9); Hematocrit 32.5 % (39.6-49.0); Lymphocytes % 1.3 % (15.3-44.8); MCV 97.3 fL (80-100); MPV 8.4 fL (7.6-11.3); RBC Red Blood Cell Count 3.34 M/uL (4.33-5.43)
[2022-10-25 03:05] LABS: Albumin 2.4 g/dL (3.4-5.0); Magnesium 1.6 mg/dL (1.6-2.4); Phosphorus 2.4 mg/dL (2.5-4.9); Potassium 3.6 mmol/L (3.5-5.1)
[2022-10-25 03:07] LABS: Bilirubin Total 6.2 mg/dL (0.2-1.0)
[2022-10-25] MEDS ORDERED: DEXMEDETOMIDINE HCL 200 MCG/2 ML VIAL ONE (03:33)
[2022-10-25] MEDS ORDERED: NA CHLORIDE 0.9% 100 ML ONE ×2 (03:36→08:59)
[2022-10-25 03:43] LABS: Anisocytosis 1+; Blood Morphology Comment NOTED (NOT SEEN); Platelet Estimate DECR; Teardrop Cell 1+
[2022-10-25] MEDS: DEXMEDETOMIDINE HCL 200 MCG in NA CHLORIDE 0.9% 98 ML IV SCH ×4 (03:45→21:48)
[2022-10-25] MEDS: NA CHLORIDE 0.9% 1,000 ML IV SCH ×3 (06:29→16:29)
--- NOTE | 2022-10-25 07:28 | P.PN ---
Date of Service: 10/25/22 Subjective received multiple doses of ativan overnight started on precedex drip patient somnolent this morning; only withdrawing to pain ROS: is unable to be obtained - Physical Exam General: lethargic, withdrawals to pain HEENT: normal conjunctiva, sclera anicteric CV: sinus tachycardia, b/l edema Pulm: mild labored respirations, diminished bilaterally GI: mild tenderness in RUQ, non-distended Integumentary: No significant lesion, No erythema Neurological: lethargic, unable to fully assess Problem List New Onset seizures Alcoholic hepatitis Alcohol use disorder-alcohol withdrawal/DTs COPD Thrombocytopenia New Onset seizures Suspect this is multifactorial, patient with history of chronic alcohol abuse drinks approximately 1 gallon of whiskey per day. He also received a dose of tramadol day before admission at outside facility which possibly contributed to lower seizure threshold. Patient given Ativan in ED, had 2 seizures at home has not had any witnessed by medical staff at this time. Continue seizure precautions, EEG and neurology consult ordered. Continue Keppra at this time as it is not clear if the seizures are related to alcohol withdrawal. Patient's current alcohol level 238. Alcoholic hepatitis GI consulted, case discussed with GI while patient was in the emergency department recommendation for IV steroids 60 mg Solu-Medrol IV daily Maddrey's discriminant function 55 with poor prognosis. Discussed case at length with patient's girlfriend, sister on the phone. Sister Kalpana phone number [phone]. Family aware of overall poor prognosis. Alcohol use disorder-alcohol withdrawal/DTs Delirium tremens prophylaxis medications in place, seizure precautions in place. COPD Continue home meds Thrombocytopenia Secondary to alcoholic hepatitis. Monitor daily. Hold Lovenox/heparin. DVT PPX: SCD given thrombocytopenia Code: Full Discharge Plan: Home Plan to discharge in: Greater than 2 days continue ICU level of care
--- NOTE | 2022-10-25 08:38 | RAD REPORT ---
EXAM DESCRIPTION: US - Renal Ultrasound-Complete - 10/25/2022 12:03 am CLINICAL HISTORY: Acute renal failure COMPARISON: None FINDINGS: The right kidney measures 12 cm with a normal echotexture. The left kidney measures 12 cm with a normal echotexture. Hydronephrosis is not seen. No gross abnormality of bladder IMPRESSION: Unremarkable renal ultrasound.
[2022-10-25] MEDS ORDERED: CEFTRIAXONE 1000 MG/VIAL ONE (08:58)
[2022-10-25] MEDS ORDERED: METHYLPREDNISOLONE 125 MG INJ ONE (08:58)
[2022-10-25] MEDS ORDERED: LEVETIRACETAM 500 MG/5 ML VIAL IV ONE (08:58)
[2022-10-25] MEDS ORDERED: NA CHLORIDE 0.9% 50 ML ONE (08:59)
[2022-10-25] MEDS: CEFTRIAXONE 1,000 MG in NA CHLORIDE 0.9% 50 ML IVPB SCH (09:00)
[2022-10-25] MEDS: METHYLPREDNISOLONE 125 MG INJ IV SCH (09:00)
[2022-10-25] MEDS: levETIRAcetam 500 MG in NA CHLORIDE 0.9% 100 ML IV SCH ×2 (09:00→20:27)
[2022-10-25] MEDS: FOLIC ACID 1 MG, MULTIVITAMINS INJ 10 ML, THIAMINE HCL 100 MG in NA CHLORIDE 0.9% 1,000 ML IV SCH (09:00)
[2022-10-25] MEDS ORDERED: Magnesium Sulfate 2gm IVPB 2 G/50 ML BAG IV ONE ×2 (09:40→10:21)
[2022-10-25 10:22] LABS: SARS-CoV-2 Antigen Rapid Res Negative (Negative)
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
--- NOTE | 2022-10-25 11:16 | EKG ---
Test Date: 2022-10-24 Test Time: 16:38:31 Photograph Finisher: HAYDEN MEASUREMENT RESULTS: Intervals: Rate: 121 VA: 150 QRSD: 102 QT: 330 QTc: 468 [place]: P: 70 VA: 150 QRS: 76 T: -42 INTERPRETIVE STATEMENTS: Sinus tachycardia ST & T wave abnormality, consider inferior ischemia Abnormal ECG Compared to ECG 10/12/2022 17:02:23 ST (T wave) deviation now present Possible ischemia now present Sinus rhythm no longer present Sinus arrhythmia no longer present Prolonged QT interval no longer present Electronically Signed On 10-25-22 11:14:56 SCRAP DEALER by Beto Rush
--- NOTE | 2022-10-25 12:20 | RAD REPORT ---
EXAM DESCRIPTION: USExtremity Venous Uni Ltd10/25/2022 11:38 am CLINICAL HISTORY: Right leg swelling COMPARISON: None. FINDINGS: Right common femoral, superficial femoral, greater saphenous, popliteal and right posterio r tibial veins are compressible and demonstrate augmentation. Doppler demonstrates good flow. Grayscale, color and spectral analysis performed on all vessels IMPRESSION: No evidence of deep venous thrombosis involving the right lower extremity.
[2022-10-25] MEDS ORDERED: ACETAMINOPHEN 650MG/RECT SUPP PR PRN (13:32)
[2022-10-25] MEDS ORDERED: ACETAMINOPHEN 650MG/RECT SUPP PR ONE (14:14)
[2022-10-25] MEDS ORDERED: ONDANSETRON 4 MG/2 ML VIAL ONE (14:14)
[2022-10-25] MEDS ORDERED: NA CHLORIDE 0.9% 500 ML IV ONE (16:14)
[2022-10-25] MEDS ORDERED: ALBUMIN HUMAN 25% 50 ML IV ONE ×2 (17:28→17:30)
[2022-10-25] MEDS ORDERED: ALBUMIN HUM 5% 500 ML IV SCH (18:00)
[2022-10-25] MEDS ORDERED: VANCOMYCIN 1 GM in NA CHLORIDE 0.9% 250 ML IVPB SCH (19:00)
[2022-10-25] MEDS ORDERED: VANCOMYCIN 1.75 GM in NA CHLORIDE 0.9% 500 ML IVPB SCH (20:00)
[2022-10-25] MEDS ORDERED: VANCOMYCIN 1 GM/VIAL ONE (20:27)
[2022-10-25] MEDS ORDERED: NA CHLORIDE 0.9% 500 ML ONE (20:27)
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
[2022-10-26 03:00] LABS: Arterial Blood Carboxyhemoglob 1.9 % (0-1.5); Blood Gas Oxyhemoglobin 93.6 % (94-97); Blood O2 Saturation 96.5 % (92-98.5)
[2022-10-26] MEDS: LORazepam 2 MG/ML VIAL IV SCH ×6 (03:11→19:00)
[2022-10-26 05:11] LABS: Specific Gravity 1.028 (1.005-1.030); Urine Bacteria 20-50 /HPF (<20); Urine Bilirubin 2+ (Negative); Urine Blood 3+ (OVER) (Negative); Urine Clarity Turbid (Clear); Urine Color Dark-Yellow (Yellow); Urine Glucose NEGATIVE (Negative); Urine Mucus Slight /HPF (None Seen); Urine Protein 1+ (Negative); Urine RBC >50 /HPF (None Seen); Urine Urobilinogen 3+ (Normal); Urine WBC Clump Occasional /HPF (None Seen)
[2022-10-26 05:33] LABS: Protime INR 2.15
[2022-10-26 05:34] LABS: Absolute Lymphocytes (CBC) 0.7 K/uL (0.7-4.9); Hematocrit 32.6 % (39.6-49.0); Lymphocytes % 4.3 % (15.3-44.8); MCV 96.9 fL (80-100); MPV 8.5 fL (7.6-11.3); RBC Red Blood Cell Count 3.37 M/uL (4.33-5.43)
[2022-10-26 05:59] LABS: Albumin 2.4 g/dL (3.4-5.0); Magnesium 2.2 mg/dL (1.6-2.4)
[2022-10-26 06:01] LABS: Bilirubin Total 9.8 mg/dL (0.2-1.0); Phosphorus 0.9 mg/dL (2.5-4.9)
[2022-10-26] MEDS: NA CHLORIDE 0.9% 1,000 ML IV SCH ×2 (06:10→12:03)
[2022-10-26] MEDS: DEXMEDETOMIDINE HCL 200 MCG in NA CHLORIDE 0.9% 98 ML IV SCH (07:28)
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
--- NOTE | 2022-10-26 08:44 | RAD REPORT ---
EXAM DESCRIPTION: RAD - Chest Single View - 10/26/2022 6:36 am CLINICAL HISTORY: hypoxia, tachypnea COMPARISON: Chest Single View dated 10/24/2022; Chest Single View dated 10/12/2022; Chest Single View dated 11/12/2021; Chest Single View dated 01/29/2021; Chest Abd Pelvis Wo Con dated 10/24/2022 FINDINGS: Lines: None. Lungs: Diffuse prominence of the pulmonary interstitium. This could be accentuated due to the patient 's positioning and portable technique. Pleural: No significant pleural effusions or pneumothorax. Cardiac: Cardiomegaly. Mediastinum: Within normal limits. Bones: No acute fractures. Other: None IMPRESSION: Probable interstitial edema. Limited by portable technique and patient positioning.
[2022-10-26] MEDS: levETIRAcetam 500 MG in NA CHLORIDE 0.9% 100 ML IV SCH ×2 (09:01→20:22)
[2022-10-26] MEDS: CEFTRIAXONE 1,000 MG in NA CHLORIDE 0.9% 50 ML IVPB SCH (09:01)
[2022-10-26] MEDS: METHYLPREDNISOLONE 125 MG INJ IV SCH (09:02)
[2022-10-26] MEDS ORDERED: NA CHLORIDE 0.9% 0 ML ONE (09:05)
[2022-10-26] MEDS: FOLIC ACID 1 MG, MULTIVITAMINS INJ 10 ML, THIAMINE HCL 100 MG in NA CHLORIDE 0.9% 1,000 ML IV SCH (10:08)
[2022-10-26] MEDS ORDERED: DEXMEDETOMIDINE HCL 400 MCG in NA CHLORIDE 0.9% 196 ML IV SCH (11:00)
[2022-10-26] MEDS: METOPROLOL TARTRATE 5 MG/5 ML INJ IV SCH ×2 (12:00→18:00)
--- NOTE | 2022-10-26 16:28 | EEG ---
CHART: [id number] TEST ID#: [id number] DATE OF STUDY: 10-25-2022 THE EEG WAS RECORDED PORTABLE IN THE EMERGENCY ROOM ON A 17 CHANNEL MACHINE. ELECTRODES WERE APPLIED IN THE USUAL MANNER USING THE INTERNATIONAL 10-20 SYSTEM. THE WAKING BACKGROUND RHYTHM IN THIS RECORD CONSISTS OF POORLY DEVELOPED AND POORLY ORGANIZED WAVES OF 4-6 HZ., IN A WIDE DISTRIBUTION WHICH ATTENUATE NORMALLY WITH EYE OPENING. LOW-VOLTAGE 15-18 HZ ACTIVITY IS EXPRESSED IN THE TEMPORAL, CENTRAL AND POSTERIOR REGIONS. THERE ARE NO FOCAL OR LATERALIZING FEATURES. NO EPILEPTIFORM ACTIVITY APPEARS. SLEEP DID NOT OCCUR. HYPERVENTILATION WAS NOT PERFORMED. PHOTIC STIMULATION PRODUCED NO DRIVING BILATERALLY. IMPRESSION: THIS IS A MILDLY ABNORMAL ROUTINE EEG DUE TO A DIFFUSELY SLOW BACKGROUND AND NO WELL SUSTAINED POSTERIOR DOMINANT RHYTHM. SOME OF THE EEG FINDINGS MAY BE DUE TO A MEDICATION EFFECT. NO EPILEPTIFORM ACTIVITY WAS RECORDED DURING THIS STUDY.
--- NOTE | 2022-10-26 17:18 | P.PN ---
Date of Service: 10/26/22 Subjective on precedex and ativan more tachycardic and tachypneic overnight withdraws to pain ROS: unable to be obtained Physical Exam General: lethargic, withdrawals to pain HEENT: normal conjunctiva, +sclera icterus CV: sinus tachycardia, b/l edema (R>L) Pulm: mild labored respirations, diminished bilaterally GI: mild tenderness in RUQ, mild-distention, soft, Neurological: lethargic, unable to fully assess Problem List New Onset seizures Alcoholic hepatitis Alcohol use disorder-alcohol withdrawal/DTs COPD Thrombocytopenia New Onset seizures Alcoholic hepatitis Suspect this is multifactorial, patient with history of chronic alcohol abuse drinks approximately 1 gallon of whiskey per day. He also received a dose of tramadol day before admission at outside facility which possibly contributed to lower seizure threshold. Patient given Ativan in ED, had 2 seizures at home has not had any witnessed by medical staff at this time. Continue seizure precautions, EEG and neurology consult ordered. Continue Keppra at this time as it is not clear if the seizures are related to alcohol withdrawal. Patient's alcohol level 238 in ED GI consulted, case discussed with GI while patient was in the emergency department recommendation for IV steroids 60 mg Solu-Medrol IV daily Maddrey's discriminant function 55 with poor prognosis. Discussed case at length with patient's girlfriend, sister on the phone. Sister Kalpana phone number [phone]. Family aware of overall poor prognosis. family discussion 10/26, patient would not want to be intubated for any reason, and to be DNR; code status changed 10/[address] Bates recommended mucomyst - tylenol tox protocol - ordered 32 Delirium tremens prophylaxis medications in place, seizure precautions in place. COPD -Continue home meds Thrombocytopenia - Secondary to alcoholic hepatitis. Monitor daily. Hold Lovenox/heparin. DVT PPX: SCD given thrombocytopenia Code: DNR Discharge Plan: poor prognosis
[2022-10-26] MEDS ORDERED: ACETYLCYST 6,000 MG/30 ML VIAL PO ONE (17:30)
[2022-10-26] MEDS ORDERED: ACETYLCYSTEINE 15,000 MG in D5W 200 ML IV ONE (18:00)
[2022-10-26] MEDS: DEXMEDETOMIDINE HCL 1,000 MCG in NA CHLORIDE 0.9% 490 ML IV SCH (18:59)
[2022-10-26] MEDS: CEFEPIME 2 GM in NA CHLORIDE 0.9% 100 ML IV SCH (20:21)
[2022-10-26] MEDS ORDERED: POTASSIUM PHOS 30 MM in NA CHLORIDE 0.9% 500 ML IV ONE (20:33)
--- NOTE | 2022-10-26 20:43 | P.PN ---
Date of Service: 10/26/22 Vital Signs Temp Pulse Resp BP Pulse Ox 100.5 F 91 H 21 H 123/65 96 10/26/22 16:00 10/26/22 20:00 10/26/22 20:00 10/26/22 20:00 10/26/22 20:00 Medications Acetaminophen (Acetaminophen 650mg/Rect Supp) 650 mg KS Q6H PRN PRN Reason: TEMP > 100' F Last Admin: 10/26/22 03:15 Dose: 650 mg Levetiracetam 500 mg/ Sodium (Chloride) 105 mls @ 420 mls/hr IV BID [facility] Last Admin: 10/26/22 20:22 Dose: 105 mls Acetylcysteine 5,000 mg/ (Dextrose) 525 mls @ 131.25 mls/hr IV 1X ONE Stop: 10/26/22 22:59 Acetylcysteine 10,000 mg/ (Dextrose/Water) 1,050 mls @ 65.625 mls/hr IV 1X ONE; Protocol Stop: 10/27/22 14:59 Dexmedetomidine HCl 1,000 mcg/ (Sodium Chloride) 500 mls @ 10.433 mls/hr IV TITR KAVITA; Protocol Last Admin: 10/26/22 18:59 Dose: 0.6 mcg/kg/hr, 31.3 mls/hr Cefepime HCl 2 gm/ Sodium (Chloride) 100 mls @ 200 mls/hr IV Q12HR KAVITA Last Admin: 10/26/22 20:21 Dose: 100 mls Folic Acid 1 mg/ Sodium (Chloride) 50.2 mls @ 200 mls/hr IV DAILY [facility] Potassium Phosphate 30 mm/ (Sodium Chloride) 500 mls @ 100 mls/hr IV 1X ONE; Protocol Stop: 10/27/22 01:32 Lorazepam (Lorazepam 2 Mg/Ml Vial) 1 mg IV Q1H PRN PRN Reason: ANXIETY Last Admin: 10/25/22 14:51 Dose: 1 mg Lorazepam (Lorazepam 2 Mg/Ml Vial) 2 mg IV Q6HR KAVITA Stop: 10/28/22 06:01 Methylprednisolone Sodium Succinate (Methylprednisolone 125 Mg Inj) 60 mg IV DAILY [facility] Last Admin: 10/26/22 09:02 Dose: 60 mg Metoprolol Tartrate (Metoprolol Tartrate 5 Mg/5 Ml Inj) 2.5 mg IV Q6H [facility] Last Admin: 10/26/22 18:00 Dose: Not Given Ondansetron HCl (Ondansetron 4 Mg/2 Ml Vial) 4 mg IV Q6HP PRN PRN Reason: NAUSEA / VOMITING Last Admin: 10/24/22 20:45 Dose: 4 mg Thiamine HCl (Thiamine 200 Mg/2 Ml Inj) 100 mg IVP BID [facility] Assessment/ Plan: Nephrology Waxing and waning BP with tachycardia Limited IH/ ROS due to AMS Family at the bedside Vitals, medications, blood work and imaging reviewed in the chart. NAD. NCAT. MMM. Neck supple. Tachypnea/ CTA. Reg/ Tachycardia. Abd ND. No C/C. LE Edema 1+. Chest rash. Poorly responsive. No speech. Stage II CHEVY likely ATN HRS? -No NSAIDs -Repeat urine labs in the AM Metabolic Acidosis, improving Hypophosphatemia -Replete with IV phos Tachycardia -Start Lopressor 2.5mg IV q6h LE Edema -Daily weight -Strict I/Os Moderate malnutrition with anorexia Decreased functional ability -Consider TPN Anemia in chronic illness Secondary Thrombocytopenia -Monitor CBC EtOH Cirrhosis -Monitor LFT Toxic Metabolic Encephalopathy EtOH withdrawal -Continue Thiamine and Folic Acid -Consider daily MVI -Continue Ativan Case reviewed with Dr. Andersen Greater than 30min patient care [facility] EXAM DESCRIPTION: RAD - Chest Single View - 10/26/2022 6:36 am CLINICAL HISTORY: hypoxia, tachypnea COMPARISON: Chest Single View dated 10/24/2022; Chest Single View dated 10/12/2022; Chest Single View dated 11/12/2021; Chest Single View dated 01/29/2021; Chest Abd Pelvis Wo Con dated 10/24/2022 FINDINGS: Lines: None. Lungs: Diffuse prominence of the pulmonary interstitium. This could be accentuated due to the patient's positioning and portable technique. Pleural: No significant pleural effusions or pneumothorax. Cardiac: Cardiomegaly. Mediastinum: Within normal limits. Bones: No acute fractures. Other: None IMPRESSION: Probable interstitial edema. Limited by portable technique and patient positioning. [facility] EXAM DESCRIPTION: US - Renal Ultrasound-Complete - 10/25/2022 12:03 am CLINICAL HISTORY: Acute renal failure COMPARISON: None FINDINGS: The right kidney measures 12 cm with a normal echotexture. The left kidney measures 12 cm with a normal echotexture. Hydronephrosis is not seen. No gross abnormality of bladder IMPRESSION: Unremarkable renal ultrasound. [facility] EXAM DESCRIPTION: CTChest Abd Pelvis Wo Con - 10/24/2022 9:43 pm CLINICAL HISTORY: Multiple falls, multiple seizures, coagulopathy/etoh COMPARISON: CTANGIO CHEST FOR PE dated 07/19/2015; Angio Aorta For Dissection dated 01/29/2021 TECHNIQUE: CT of the chest, abdomen, and pelvis was performed. All CT scans are performed using dose optimization technique as appropriate and may include automated exposure control or mA/KV adjustment according to patient size. FINDINGS: Thorax: Chest Wall: No abnormal mass gynecomastia. Lungs: No acute abnormality. Pleura: No effusions or pneumothorax. Lucia/Mediastinum: No lymphadenopathy. Aorta/Pulmonary Arteries: Unremarkable Heart: Normal size. Abdomen/Pelvis: Limited by motion. Liver: Cirrhotic liver morphology. Biliary: No biliary ductal dilatation. Cholecystectomy. Stomach: No significant focal abnormality. Duodenum: No significant focal abnormality. Pancreas: No significant abnormality. Spleen: Splenomegaly. Adrenal: No suspicious lesions. Kidney/ureter: No hydronephrosis. No renal calculi. Retroperitoneum: No retroperitoneal adenopathy. Vascular: No aneurysm. Bowel: Colonic wall thickening at the ascending, transverse, and descending colon.. Peritoneum: No ascites or free air. Small volume ascites. Bladder: Grossly unremarkable. Reproductive: No adnexal masses. Bones: No acute fracture. Superior endplate deformity at T12. IMPRESSION: 1. Limited by motion. 2. No evidence of significant trauma to the chest, abdomen, or pelvis. 3. Cirrhosis.
[2022-10-26] MEDS ORDERED: VANCOMYCIN 2 GM in NA CHLORIDE 0.9% 500 ML IVPB SCH (21:00)
[2022-10-26] MEDS ORDERED: ACETYLCYST 6,000 MG/30 ML VIAL PO SCH (22:00)
[2022-10-26] MEDS ORDERED: POTASSIUM PHOS IN 0.9 % NACL 15 MMOL/250 ML BAG IV ONE (22:16)
[2022-10-26] MEDS ORDERED: ACETYLCYSTEINE 10,000 MG in D5W 1,000 ML IV ONE (23:00)
[2022-10-27] MEDS: LORazepam 2 MG/ML VIAL IV SCH ×5 (00:01→23:31)
[2022-10-27] MEDS: METOPROLOL TARTRATE 5 MG/5 ML INJ IV SCH ×2 (00:02→06:00)
[2022-10-27] MEDS ORDERED: POTASSIUM PHOS IN 0.9 % NACL 15 MMOL/250 ML BAG IV ONE (01:02)
[2022-10-27 05:38] LABS: Protime INR 3.14
[2022-10-27 05:39] LABS: Absolute Lymphocytes (CBC) 0.9 K/uL (0.7-4.9); Hematocrit 32.1 % (39.6-49.0); MCV 98.3 fL (80-100); MPV 9.3 fL (7.6-11.3); RBC Red Blood Cell Count 3.27 M/uL (4.33-5.43)
[2022-10-27 05:53] LABS: Albumin 1.8 g/dL (3.4-5.0); Magnesium 2.1 mg/dL (1.6-2.4); Phosphorus 3.3 mg/dL (2.5-4.9); Potassium 4.3 mmol/L (3.5-5.1); Protein, Total 6.3 g/dL (6.4-8.2); Uric Acid 6.8 mg/dL (3.5-7.2)
[2022-10-27 05:56] LABS: Bilirubin Total 11.1 mg/dL (0.2-1.0)
--- NOTE | 2022-10-27 07:07 | P.PN ---
Date of Service: 10/27/22 Subjective HR improved overnight INR and Tbili continue to rise on precedex, ativan Long discussion with family today regarding goals of care ROS: unable to be obtained Physical Exam General: lethargic, withdrawals to pain. jaundice HEENT: normal conjunctiva, +sclera icterus CV: regular rate & rhythm, b/l edema (R>L) Pulm: mild labored respirations on 4L NC, diminished bilaterally GI: mild-distention, soft MSK: 1+edema left leg, 2-3+ edema right leg old surgical scars at ankle Neurological: lethargic, unable to fully assess Problem List Alcoholic hepatitis with liver failure new onset seizures hyperbilirubinemia CHEVY Alcohol use disorder-alcohol withdrawal/DTs COPD Gram+ bacteremia Thrombocytopenia worsening liver function, INR increasing, tbili increasing long discussions with family; discussed patient only wants to drink alcohol, and 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
[2022-10-27] MEDS: levETIRAcetam 500 MG in NA CHLORIDE 0.9% 100 ML IV SCH (08:07)
[2022-10-27] MEDS: METHYLPREDNISOLONE 125 MG INJ IV SCH (08:07)
[2022-10-27] MEDS: CEFEPIME 2 GM in NA CHLORIDE 0.9% 100 ML IV SCH (08:07)
[2022-10-27] MEDS ORDERED: THIAMINE 200 MG/2 ML INJ IVP SCH (09:00)
[2022-10-27] MEDS ORDERED: FOLIC ACID 1 MG in NA CHLORIDE 0.9% 50 ML IV SCH (09:00)
--- NOTE | 2022-10-27 09:02 | RAD REPORT ---
EXAM DESCRIPTION: RAD - Chest Single View - 10/27/2022 8:44 am CLINICAL HISTORY: hypoxia COMPARISON: No comparisonsChest Single View dated 10/26/2022; Chest Single View dated 10/24/2022; Chest Single View dated 10/12/2022; Chest Single View dated 11/12/2021 FINDINGS: Lines: Edit Lungs: Diffusely coarsened pulmonary interstitium. Mild improved lung volumes. Pleural: No significant pleural effusions or pneumothorax. Cardiac: Cardiomegaly. Mediastinum: Within normal limits. Bones: No acute fractures. Other: None IMPRESSION: Coarsening of the pulmonary interstitium may reflect mild edema
[2022-10-27] MEDS ORDERED: FUROSEMIDE 40 MG/4 ML VIAL IV ONE (09:40)
[2022-10-27] MEDS: DEXMEDETOMIDINE HCL 1,000 MCG in NA CHLORIDE 0.9% 490 ML IV SCH (12:07)
--- NOTE | 2022-10-27 14:36 | P.PN ---
Nephrology note: (S) Pt remains in the ICU, on Precedex, on NAC drip for acute alcoholic hepatitis. Is producing urine although younger is not present. (O) Vitals reviewed in the EMR along with CXR report and labs General: Unresponsive (Obtunded ) HEENT: Atraumatic, Normocephalic, Scleral icterus, NC Neck: Supple Respiratory: Normal air movement, no rhonchi on anterior auscultation Cardiovascular: Other (Tachy, regular) Gastrointestinal: Other (Soft, mild distention, obese, NT) Musculoskeletal: Swelling, Contractures, Other (Deformity of Rt medial ankle, prior surgery) Integumentary: Other (Jaundice, skin excoriations) Neurological: Other (Obtunded, pn Precedex gtt) Laboratory Data (last 24 hrs) Reviewed Conclusions/Impression: A/P) 1. Stage I CHEVY that was likely multifactorial with possible intravascular vol depletion, possible NSAIDs use as OP, other. Cr level lower on repeat testing today and pt producing urine which would all argue against Type 1 HRS, cont to trend. Lytes mostly acceptable but Na level is mildly elevated, pt is on NAC in a D5W drip, corrected Ca acceptable. Unspecified abnormal findings in urine on admission noted. 2. Metab acidosis with small gap on admission with elevated LA in the setting of seizures on admission, reduced lactate clearance with liver disease. Bicarb deficit improved. 3. Liver cirrhosis 2nd to Etoh, possible acute alcoholic hepatitis -management per GI and primary team 4. Pulm vasc congestion has developed with fluid resuscitation, maintenance iVF stopped, dose IV lasix 40 mg once this AM. Monitor response. Resp status stable otherwise currently. Edis Chawla MD, [facility]
[2022-10-27] MEDS ORDERED: CEFEPIME 2 GM in NA CHLORIDE 0.9% 100 ML IV SCH (17:00)
[2022-10-28] MEDS: LORazepam 2 MG/ML VIAL IV SCH (05:46)
[2022-10-28 06:19] VITALS: BMI 37.9
--- NOTE | 2022-10-28 06:58 | P.PN ---
Date of Service: 10/28/22 Subjective No acute events overnight Continues on as needed Ativan Unresponsive Off Precedex drip since yesterday ROS: unable to be obtained Physical Exam General: lethargic, unresponsive HEENT: normal conjunctiva, +sclera icterus CV: Sinus tachycardia, 2+ b/l edema (R>L) Pulm: Agonal respirations, diminished bilaterally GI: mild-distention, soft Neurological: lethargic, unresponsive Problem List Alcoholic hepatitis with liver failure new onset seizures hyperbilirubinemia CHEVY Alcohol use disorder-alcohol withdrawal/DTs COPD Gram+ bacteremia Thrombocytopenia Hypocalcemia worsening liver function, INR increasing, tbili increasing on 10/27 long discussions with family on 10/27; discussed patient only wants to drink alcohol, and 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
[2022-10-28] MEDS: LORazepam 2 MG/ML VIAL IV PRN ×7 (07:43→19:06)
[2022-10-28] MEDS: HYDROMORPHONE HCL 1 MG/ML INJ IV PRN ×3 (11:51→17:57)
--- NOTE | 2022-10-28 21:46 | P.DS ---
Admission Date: 10/24/22 Discharge Date: 10/28/22 Disposition: Reason for Admission: Seizure, alcohol abuse, alcoholic hepatitis Consultations: [employer], nephrology, gastroenterology Brief History of Present Illness: 47-year-old male with history of alcoholic cirrhosis of the liver, hypertension, COPD presents to the emergency department for multiple seizures. His girlfriend reports that he had an right ankle/foot injury a few days ago and has been seen at multiple ERs for continued pain in that foot the past few days, he was given a dose of tramadol last night at another hospital. Today patient had 2 witnessed seizures by his girlfriend at home first 1 lasting approximately 20 minutes second 1 lasting between 5 and 10 minutes. He initially refused EMS evaluation after the first seizure but ultimately was taken by EMS during his second seizure to the hospital for evaluation. History of reports that he is a chronic alcohol history drinking typically 1 gallon of vodka or whiskey in a day, his last drink was today around 2 PM. He was given a total of 4 mg of Ativan thus far in the emergency department. He also has history of leaving AGAINST MEDICAL ADVICE frequently from hospitals. His labs today were significant for platelet count of 43 PT 23.3 INR 2.12 T. bili 5.6 T. bili 4.8 AST 181 alk phos 183 creatinine 1.93 bicarb 16 EtOH level 238. GI was contacted by ED provider given alcoholic hepatitis, recommendation was made for IV steroids, admission to ICU. Discussed patient's prognosis/clinical situation with his Sister Kalpana phone number [phone] as well as his girlfriend at bedside who report that patient has known about his liver problems for a long time now has been telling his family he was going to the past few weeks, they are aware of how ill he is currently and chronically and his poor prognosis. We will need to admit to ICU. 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 Vital Signs/Physical Exam: Temp Pulse Resp BP Pulse Ox 99.6 F 146 H 29 H 171/101 H 64 L 10/28/22 16:00 10/28/22 18:00 10/28/22 18:27 10/28/22 18:00 10/28/22 18:27 General: Unresponsive HEENT: Other (Pupils fixed, dilated) Respiratory: Other (No spontaneous respiratory effort) Cardiovascular: Other (No central pulses, no heart sounds) Laboratory Data at Discharge: WBC 11.70 K/uL (4.3-10.9) H 10/27/22 05:05 Hgb 10.8 g/dL (13.6-17.9) L 10/27/22 05:05 Hct 32.1 % (39.6-49.0) L 10/27/22 05:05 Plt Count 40 K/uL (152-406) L* 10/27/22 05:05 PT 34.5 SECONDS (9.5-12.5) H 10/27/22 05:05 INR 3.14 10/27/22 05:05 APTT 37.3 SECONDS (24.3-36.9) H 10/24/22 16:50 Sodium 146 mmol/L (136-145) H D 10/27/22 05:05 Potassium 4.3 mmol/L (3.5-5.1) 10/27/22 05:05 BUN 53 mg/dL (7-18) H 10/27/22 05:05 Creatinine 1.68 mg/dL (0.70-1.30) H 10/27/22 05:05 Glucose 164 mg/dL (74-106) H 10/27/22 05:05 Uric Acid 6.8 mg/dL (3.5-7.2) 10/27/22 05:05 Phosphorus 3.3 mg/dL (2.5-4.9) 10/27/22 05:05 Magnesium 2.1 mg/dL (1.6-2.4) 10/27/22 05:05 Total Bilirubin 11.1 mg/dL (0.2-1.0) H* 10/27/22 05:05 AST 246 U/L (15-37) H 10/27/22 05:05 ALT 76 U/L (16-61) H 10/27/22 05:05 Alkaline Phosphatase 82 U/L (45-117) D 10/27/22 05:05 Home Medications: Gabapentin 1 cap PO TID 01/29/21 Omeprazole [Prilosec] 1 tab PO DAILY 01/29/21 Albuterol Sulfate [Proair Digihaler] 90 mcg IH 10/25/22 Budesonide/Formoterol Fumarate [Budesonide-Formoterol 160-4.5] 10.2 gm IH BID 10/25/22 Esomeprazole Magnesium 40 mg PO BID 10/25/22 Fluoxetine HCl 20 mg PO DAILY 10/25/22 Folic Acid 1 mg PO DAILY 10/25/22 Furosemide 40 mg PO DAILY 10/25/22 LORazepam [Ativan] 1 mg PO BEDTIME PRN 10/25/22 Nystatin 100,000 unit PO DAILY 10/25/22 Pantoprazole [Protonix Tab] 40 mg PO DAILY 10/25/22 Pramoxine HCl [Proctofoam] 15 gm TP 10/25/22 Spironolactone 25 mg PO DAILY 10/25/22 Thiamine HCl 100 mg PO DAILY 10/25/22 Tramadol HCl [Ultram] 50 mg PO Q6HR 10/25/22 Followup: Sarkis Zamudio DO [Primary Care Provider] -
[2022-10-28 22:27] VITALS: O2SAT 66
[2022-10-28 22:56] VITALS: BP 108/54; TEMP 99.8
--- NOTE | 2022-10-31 10:25 | PN ---
Patient lying in bed, being sedated down. The patient is off vasopressors at this time. Currently on nasal cannula 4 L. Physical Examination: Lungs: Basal crackles. Heart: S1, S2. Regular. Abdomen: Soft, nontender. Bowel sounds present. Extremities: 2+ edema. Laboratory Data: Shows WBC 11.7, hemoglobin 10.8, platelets 40. BUN 53, creatinine 1.6. Liver enzy mes shows a total bilirubin of 11.1 with AST of 246. Blood cultures are growing Strep agalactiae arnol up B. Assessment And Plan: Respiratory failure, sepsis in a patient with significant history of seizure an d alcohol abuse. Vital signs reviewed. Lungs with basal crackles. Anemia of chronic disease. Thro mbocytopenia. Leukocytosis. Normal liver function with bilirubin more than 10. Prognosis guarded. Bacteremia secondary to Strep agalactiae group B. Currently on cefepime, can be switched to Levaqui n if the patient does not respond. Continue current treatment and pulmonary hygiene. We will follow the patient as needed. NF/MODL Voice ID: [id number] Report ID: [id number]
== END 2022-10-28 20:11 | disposition expired | DRG 432 ==
LOC: ER 16:31 → ERHOLD 19:35 → 3RD-ICU 10-25 18:05
PROVIDERS: ADMIT Hospitalist; ATTEND Hospitalist
DX: K70.40 Alcoholic hepatic failure without coma (principal); A40.1 Sepsis due to streptococcus, group B; E43 Unspecified severe protein-calorie malnutrition; G92.8 Other toxic encephalopathy; J96.90 Respiratory failure, unspecified, unspecified whether with hypoxia or hypercapnia; E87.20 Acidosis, unspecified; F10.231 Alcohol dependence with withdrawal delirium; N39.0 Urinary tract infection, site not specified; N17.9 Acute kidney failure, unspecified; K70.10 Alcoholic hepatitis without ascites; J44.9 Chronic obstructive pulmonary disease, unspecified; R56.9 Unspecified convulsions; K70.30 Alcoholic cirrhosis of liver without ascites; I10 Essential (primary) hypertension; G31.2 Degeneration of nervous system due to alcohol; D69.6 Thrombocytopenia, unspecified; F90.9 Attention-deficit hyperactivity disorder, unspecified type; F98.8 Other specified behavioral and emotional disorders with onset usually occurring in childhood and adolescence; F41.9 Anxiety disorder, unspecified; E83.39 Other disorders of phosphorus metabolism; D63.8 Anemia in other chronic diseases classified elsewhere; E80.6 Other disorders of bilirubin metabolism; E83.51 Hypocalcemia; F17.200 Nicotine dependence, unspecified, uncomplicated; B96.89 Other specified bacterial agents as the cause of diseases classified elsewhere; B19.20 Unspecified viral hepatitis C without hepatic coma; Z66 Do not resuscitate; Z88.8 Allergy status to other drugs, medicaments and biological substances; Z68.32 Body mass index [BMI] 32.0-32.9, adult; Z79.899 Other long term (current) drug therapy; Z20.822 Contact with and (suspected) exposure to COVID-19
CPT/HCPCS: 36415; 70450; 71045; 71250; 74176; 76770; 80048; 80053; 80076; 80307; 81001; 82140; 82248; 82550; 82805; 82947; 83605; 83735; 84100; 84550; 85025; 85610; 85730; 87040; 87077; 87086; 87088; 87186; 87205; 87811; 93005; 93971; 95819; 96374; 96375; 99284; 99285; G0480; J0132; J0692; J1170; J1940; J1953; J2270; J2405; J2920; J2930; J3370; J3411; J3475; J3480; J7030; J7040; J7050; J7060; P9045; P9047